=== PATIENT | male | born 1980 | race Caucasian/White ===

== ENCOUNTER 2016-10-23 20:19 | Inpatient (IN) | payer MEDICAID, OTHER ==
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
[2016-10-23] MEDS ORDERED: Ondansetron 4 MG/2 ML SDV IVPUSH ONE (20:50)
[2016-10-23] MEDS ORDERED: HYDROmorphone 0.5 MG/0.5 ML Syringe IVPUSH ONE (20:50)
[2016-10-23] MEDS ORDERED: Sodium Chloride 0.9% 1,000 ML IV ONE (21:16)
[2016-10-23] MEDS ORDERED: HYDROmorphone 0.5 MG/0.5 ML Syringe IVPUSH STA (22:29)
[2016-10-23] MEDS ORDERED: Metoprolol Tartrate 5 MG/5 ML SDV IVPUSH PRN (22:37)
[2016-10-23] MEDS ORDERED: Magnesium Sulfate/Water 2 GM in Premix Bag 1 BAG IV ONE (22:39)
[2016-10-23] MEDS ORDERED: Sodium Chloride 0.45% with KCl 1,000 ML IV SCH (23:00)
[2016-10-23] MEDS: HYDROmorphone 1 MG/ML Syringe IVPUSH PRN (23:16)
[2016-10-23] MEDS: cloNIDine 0.1 MG Tab PO SCH (23:30)
[2016-10-23] MEDS ORDERED: LORazepam 1 MG Tab PO ONE (23:38)
[2016-10-24] MEDS ORDERED: Nicotine 21 MG/24 Hr Patch TRDERM ONE (00:30)
[2016-10-24] MEDS: Sodium Chloride 0.45% with KCl 1,000 ML IV SCH ×2 (00:38→09:15)
[2016-10-24] MEDS: HYDROmorphone 1 MG/ML Syringe IVPUSH PRN ×6 (03:09→23:12)
[2016-10-24] MEDS ORDERED: Pneumococcal Polyvalent-23 Vaccine 0.5 ML SDV IM ONE (08:12)
[2016-10-24] MEDS: cloNIDine 0.1 MG Tab PO SCH ×2 (09:07→21:16)
[2016-10-24] MEDS: Enoxaparin 40 MG/0.4 ML Syringe SUBCUT SCH (09:52)
[2016-10-24] MEDS: D5 1/2 NS w/ 20 mEq/L KCl 1,000 ML IV SCH ×2 (09:58→18:01)
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
[2016-10-24] MEDS ORDERED: Magnesium Sulfate/Water 4 GM in Premix Bag 1 BAG IV ONE (10:30)
[2016-10-24] MEDS: Magnesium Sulfate/Water 2 GM in Premix Bag 1 BAG IV SCH ×2 (12:20→14:54)
[2016-10-24] MEDS: LORazepam 2 MG/ML MDV IVPUSH PRN ×2 (17:07→21:17)
[2016-10-24] MEDS ORDERED: Magnesium Sulfate/Water 2 GM in Premix Bag 1 BAG IV ONE (17:26)
[2016-10-24] MEDS ORDERED: Ondansetron 4 MG/2 ML SDV IVPUSH PRN (18:24)
[2016-10-24] MEDS: chlordiazePOXIDE 25 MG Cap PO SCH (21:17)
[2016-10-24] MEDS: Nicotine 21 MG/24 Hr Patch TRDERM SCH (21:30)
[2016-10-25] MEDS: HYDROmorphone 1 MG/ML Syringe IVPUSH PRN ×3 (03:12→18:54)
[2016-10-25] MEDS: chlordiazePOXIDE 25 MG Cap PO SCH ×2 (09:24→20:41)
[2016-10-25] MEDS: cloNIDine 0.1 MG Tab PO SCH ×2 (09:24→20:42)
[2016-10-25] MEDS: Enoxaparin 40 MG/0.4 ML Syringe SUBCUT SCH (09:25)
[2016-10-25] MEDS: Pantoprazole 40 MG Vial IVPUSH SCH ×2 (10:42→22:07)
[2016-10-25] MEDS: Ketorolac 30 MG/ML SDV IVPUSH SCH ×3 (10:42→22:02)
[2016-10-25] MEDS: Dextrose 5%-0.9% NaCl with KCl 1,000 ML IV SCH ×2 (10:43→22:11)
[2016-10-25] MEDS ORDERED: Morphine 4 MG/ML Syringe IVPUSH ONE (15:00)
--- NOTE | 2016-10-25 15:17 | PCM.PN ---
- General Info Date of Service: 10/25/16 Subjective Update: Patient complains of abdominal pain, is currently NPO. - Review of Systems General: Reports: Weakness HEENT: Reports: No Symptoms Pulmonary: Reports: No Symptoms Cardiovascular: Reports: No Symptoms Gastrointestinal: Reports: Abdominal Pain, Nausea Genitourinary: Reports: No Symptoms Musculoskeletal: Reports: No Symptoms Skin: Reports: No Symptoms Neurological: Reports: No Symptoms Psychiatric: Reports: No Symptoms - Patient Data Vitals - Most Recent: Last Vital Signs Temp 36.7 C 10/25/16 12:24 Pulse 51 L 10/25/16 12:24 Resp 16 10/25/16 12:24 BP 135/88 10/25/16 12:24 Pulse Ox 98 10/25/16 12:24 Weight - Most Recent: 68.356 kg I&O - Last 24 Hours: Intake & Output 10/25/16 10/25/16 10/25/16 06:59 14:59 22:59 Intake Total 1705 Balance 1705 Lab Results Last 24 Hours: Laboratory Results - last 24 hr 10/25/16 10/25/16 10/25/16 Range/Units 05:43 05:43 07:00 WBC 6.93 (4.23-9.07) K/mm3 RBC 4.08 L (4.63-6.08) M/mm3 Hgb 12.8 L (13.7-17.5) gm/L Hct 36.2 L (40.1-51.0) % MCV 88.7 (79.0-92.2) fl MCH 31.4 (25.7-32.2) pg MCHC 35.4 (32.2-35.5) g/dl RDW Std Deviation 39.4 (35.1-43.9) fL Plt Count 57 L (163-337) K/mm3 MPV 11.8 (9.4-12.3) fl Neut % (Auto) 81.0 H (34.0-67.9) % Lymph % (Auto) 9.2 L (21.8-53.1) % Cloud % (Auto) 9.2 (5.3-12.2) % Eos % (Auto) 0.6 L (0.8-7.0) Baso % (Auto) 0.0 L (0.1-1.2) % Neut # (Auto) 5.61 H (1.78-5.38) K/mm3 Lymph # (Auto) 0.64 L (1.32-3.57) K/mm3 Cloud # (Auto) 0.64 (0.30-0.82) K/mm3 Eos # (Auto) 0.04 (0.04-0.54) K/mm3 Baso # (Auto) 0.00 L (0.01-0.08) K/mm3 Manual Slide Review Abnormal smear Sodium 131 L (136-145) mEq/L Potassium 4.0 (3.5-5.1) mEq/L Chloride 95 L (98-107) mEq/L Carbon Dioxide 29 (21-32) mEq/L Anion Gap 11.0 (5-15) BUN 8 (7-18) mg/dL Creatinine 0.7 (0.7-1.3) mg/dL Est Cr Clr Drug Dosing 143.48 mL/min Estimated GFR (MDRD) > 60 (>60) mL/min BUN/Creatinine Ratio 11.4 L (14-18) Glucose 122 H (74-106) mg/dL POC Glucose 144 H (70-105) mg/dL Calcium 8.1 L (8.5-10.1) mg/dL Magnesium 1.7 L (1.8-2.4) mg/dl C-Reactive Protein 6.4 H* (<1.0) mg/dL Lipase 3527 H (73-393) U/L Ethyl Alcohol 0.00 (0.00) gm% Med Orders - Current: Current Medications Chlordiazepoxide HCl (Librium) 25 mg PO BID [facility] Last Admin: 10/25/16 09:24 Dose: 25 mg Clonidine HCl (Catapres) 0.1 mg PO BID [facility] Last Admin: 10/25/16 09:24 Dose: Not Given Enoxaparin Sodium (Lovenox) 40 mg SUBCUT DAILY [facility] Last Admin: 10/25/16 09:25 Dose: Not Given Hydromorphone HCl (Dilaudid) 2 mg IVPUSH Q4H PRN PRN Reason: Pain Potassium Chloride/Dextrose/Sod Cl (D5 Ns With 20 Meq Kcl) 1,000 mls @ 100 mls/ hr IV ASDIRECTED [facility] Last Admin: 10/25/16 10:43 Dose: 100 mls/hr Ketorolac Tromethamine (Toradol) 30 mg IVPUSH Q6H [facility] Stop: 10/26/16 16:31 Last Admin: 10/25/16 10:42 Dose: 30 mg Lorazepam (Ativan) 0 mg IVPUSH ASDIRECTED PRN; Protocol PRN Reason: Withdrawal Symptoms Last Admin: 10/24/16 21:17 Dose: 1 mg Metoprolol Tartrate (Lopressor) 5 mg IVPUSH Q6H PRN PRN Reason: Tachycardia Nicotine (Habitrol) 21 mg TRDERM 2100 [facility] Last Admin: 10/24/16 21:30 Dose: 21 mg Ondansetron HCl (Zofran) 4 mg IVPUSH Q4H PRN PRN Reason: Nausea/Vomiting Pantoprazole Sodium (Protonix Iv) 40 mg IVPUSH Q12H [facility] Last Admin: 10/25/16 10:42 Dose: 40 mg Discontinued Medications Hydromorphone HCl (Dilaudid) 0.5 mg IVPUSH ONETIME ONE Stop: 10/23/16 20:51 Last Admin: 10/23/16 21:26 Dose: 0.5 mg Hydromorphone HCl (Dilaudid) 0.5 mg IVPUSH STAT STA Stop: 10/23/16 22:30 Last Admin: 10/23/16 22:33 Dose: 0.5 mg Hydromorphone HCl (Dilaudid) 1 mg IVPUSH Q4H PRN PRN Reason: Pain Last Admin: 10/25/16 07:42 Dose: 1 mg Sodium Chloride (Normal Saline) 1,000 mls @ 999 mls/hr IV ONETIME ONE Stop: 10/23/16 22:16 Last Admin: 10/23/16 21:25 Dose: 999 mls/hr Magnesium Sulfate 2 gm/ Premix 50 mls @ 25 mls/hr IV ONETIME ONE Stop: 10/24/16 00:38 Last Admin: 10/23/16 23:20 Dose: 25 mls/hr Potassium Chloride/Sodium Chloride (1/2 Ns With 20 Meq Kcl) 1,000 mls @ 999 mls /hr IV ASDIRECTED [facility] Stop: 10/24/16 00:01 Last Admin: 10/23/16 23:20 Dose: 999 mls/hr Potassium Chloride/Sodium Chloride (1/2 Ns With 20 Meq Kcl) 1,000 mls @ 150 mls /hr IV ASDIRECTED [facility] Last Admin: 10/24/16 09:15 Dose: 150 mls/hr Potassium Chloride/Dextrose/Sod Cl (D5 1/2 Ns W/ 20 Meq/L Kcl) 1,000 mls @ 150 mls/hr IV ASDIRECTED [facility] Last Admin: 10/24/16 18:01 Dose: 150 mls/hr Magnesium Sulfate 2 gm/ Premix 50 mls @ 25 mls/hr IV Q2H [facility] Stop: 10/24/16 14:44 Last Admin: 10/24/16 14:54 Dose: 25 mls/hr Magnesium Sulfate 2 gm/ Premix 50 mls @ 25 mls/hr IV ONETIME ONE Stop: 10/24/16 19:25 Last Admin: 10/24/16 18:01 Dose: 25 mls/hr Lorazepam (Ativan) 1 mg PO ONETIME ONE Stop: 10/23/16 23:39 Last Admin: 10/24/16 00:13 Dose: 1 mg Morphine Sulfate (Morphine) 4 mg IVPUSH ONETIME ONE Stop: 10/25/16 15:01 Last Admin: 10/25/16 14:29 Dose: 4 mg Nicotine (Habitrol) 21 mg TRDERM ONETIME ONE Stop: 10/24/16 00:31 Last Admin: 10/24/16 00:37 Dose: 21 mg Ondansetron HCl (Zofran) 4 mg IVPUSH ONETIME ONE Stop: 10/23/16 20:51 Last Admin: 10/23/16 21:27 Dose: 4 mg Pneumococcal Polyvalent Vaccine (Pneumovax 23) 0.5 ml IM .ONCE ONE Stop: 10/24/16 08:13 - Exam Quality Assessment: Supplemental Oxygen, DVT Prophylaxis General: Alert, Oriented, Cooperative, No Acute Distress HEENT: Pupils Equal, Pupils Reactive, EOMI Neck: Supple, Trachea Midline, No JVD Lungs: Normal Respiratory Effort, Decreased Breath Sounds Cardiovascular: Regular Rate, Regular Rhythm GI/Abdominal Exam: Normal Bowel Sounds, Soft, No Organomegaly, No Distention, Tender (Male) Exam: Deferred Back Exam: Normal Inspection Extremities: Normal Inspection, Normal Capillary Refill Skin: Warm Neurological: No New Focal Deficit Psy/Mental Status: Alert, Anxious - Problem List & Annotations (1) Alcohol abuse SNOMED Code(s): 28911075 Code(s): F10.10 - ALCOHOL ABUSE, UNCOMPLICATED Status: Acute Current Visit: Yes (2) Acute alcoholic pancreatitis SNOMED Code(s): 637741945 Code(s): K85.2 - ALCOHOL INDUCED ACUTE PANCREATITIS * DO NOT USE * Status: Acute Current Visit: No Qualifiers: Acute pancreatitis complication: no infection or necrosis Qualified Code(s) : K85.20 - Alcohol induced acute pancreatitis without necrosis or infection (3) Alcohol intoxication SNOMED Code(s): 23128445 Code(s): F10.129 - ALCOHOL ABUSE WITH INTOXICATION, UNSPECIFIED Status: Acute Current Visit: No (4) Alcohol withdrawal SNOMED Code(s): 750960904 Code(s): F10.239 - ALCOHOL DEPENDENCE WITH WITHDRAWAL, UNSPECIFIED Status: Acute Current Visit: No Qualifiers: Complication of substance-induced condition: with unspecified complication Qualified Code(s): F10.239 - Alcohol dependence with withdrawal, unspecified (5) Hypokalemia SNOMED Code(s): 64321282 Code(s): E87.6 - HYPOKALEMIA Status: Acute Current Visit: No (6) Hypomagnesemia SNOMED Code(s): 527500501 Code(s): E83.42 - HYPOMAGNESEMIA Status: Acute Current Visit: No - Problem List Review Problem List Initiated/Reviewed/Updated: Yes - My Orders Last 24 Hours: My Active Orders 10/24/16 15:17 Communication Order [RC] DAILY 10/24/16 18:24 Ondansetron [Zofran] 4 mg IVPUSH Q4H PRN 10/24/16 21:00 Nicotine [Habitrol] 21 mg TRDERM 2100 chlordiazePOXIDE [Librium] 25 mg PO BID 10/25/16 07:00 Blood Glucose Check, Bedside [RC] ONETIME 10/25/16 09:45 Dextrose 5%-0.9% NaCl with KCl [D5 NS with 20 mEq KCl] 1,000 ml IV ASDIRECTED 10/25/16 10:11 HYDROmorphone [Dilaudid] 2 mg IVPUSH Q4H PRN 10/25/16 10:30 Ketorolac [Toradol] 30 mg IVPUSH Q6H 10/25/16 11:00 Pantoprazole [ProTONIX IV] 40 mg IVPUSH Q12H 10/26/16 05:00 BMP [BASIC METABOLIC PANEL,BMP] [CHEM] DAILY CBC WITH AUTO DIFF [HEME] DAILY CRP [C-REACTIVE PROTEIN] [CHEM] DAILY LIPASE [CHEM] DAILY MAGNESIUM [CHEM] DAILY 10/27/16 05:00 BMP [BASIC METABOLIC PANEL,BMP] [CHEM] DAILY CBC WITH AUTO DIFF [HEME] DAILY CRP [C-REACTIVE PROTEIN] [CHEM] DAILY LIPASE [CHEM] DAILY MAGNESIUM [CHEM] DAILY 10/28/16 05:00 BMP [BASIC METABOLIC PANEL,BMP] [CHEM] DAILY CBC WITH AUTO DIFF [HEME] DAILY CRP [C-REACTIVE PROTEIN] [CHEM] DAILY LIPASE [CHEM] DAILY MAGNESIUM [CHEM] DAILY - Plan Plan:: Impression: Alcoholic pancreatitis, acute on chronic Family history of alcoholism Polysubstance abuse Hypertension History of concussions LE fracture on prescription narcotics Plan: NPO IVF, hydrate with D5 1/2 NS +/- KCl CIWA Pain mgt Habitrol Psych consults-->0600, Thursday, 10/25...? Substance abuse consult, TBA Daily Labs DVT/GI prophylaxis CM/PT/OT
[2016-10-25] MEDS: LORazepam 2 MG/ML MDV IVPUSH PRN (19:04)
[2016-10-25] MEDS: Nicotine 21 MG/24 Hr Patch TRDERM SCH (22:00)
[2016-10-26] MEDS: HYDROmorphone 1 MG/ML Syringe IVPUSH PRN ×4 (00:36→23:30)
[2016-10-26] MEDS: LORazepam 2 MG/ML MDV IVPUSH PRN ×5 (02:44→12:33)
[2016-10-26] MEDS: Ketorolac 30 MG/ML SDV IVPUSH SCH ×3 (03:58→15:55)
[2016-10-26] MEDS ORDERED: HYDROmorphone 1 MG/ML Syringe IVPUSH ONE (04:47)
[2016-10-26] MEDS ORDERED: hydrALAZINE 20 MG/ML SDV IVPUSH ONE (05:47)
[2016-10-26] MEDS ORDERED: hydrALAZINE 20 MG/ML SDV IVPUSH PRN (06:33)
[2016-10-26] MEDS ORDERED: Magnesium Sulfate/Water 2 GM in Premix Bag 1 BAG IV ONE (06:36)
[2016-10-26] MEDS: chlordiazePOXIDE 25 MG Cap PO SCH ×3 (08:08→20:10)
--- NOTE | 2016-10-26 08:23 | PCM.PN ---
- General Info Date of Service: 10/12/16 Admission Dx/Problem (Free Text): Admission Diagnosis/Problem Admission Diagnosis/Problem Pancreatitis Subjective Update: Follow Up Functional Status: Reports: Tolerating Diet, Ambulating, Urinating. Denies: Pain Controlled - Review of Systems General: Denies: Fever, Weakness, Chills HEENT: Reports: No Symptoms Pulmonary: Denies: Shortness of Breath Cardiovascular: Denies: Chest Pain Gastrointestinal: Reports: Abdominal Pain. Denies: Nausea, Vomiting Genitourinary: Reports: No Symptoms Musculoskeletal: Reports: No Symptoms, Foot Pain Skin: Denies: Cyanosis, Jaundice, Mottled, Pallor, Rash Neurological: Reports: Gait Disturbance. Denies: Confusion, Difficulty Walking , Weakness Psychiatric: Reports: Agitation. Denies: Depression, Anxiety, Hallucinations, Suicidal Ideation Systems Review Comment:: No significant overnight or acute issues. He sedated. His HR spikes up in the 150s when he is up walking but comes back down to the 50s when he is resting or laying in bed. His CIWA score is 11 this am. His lipase is now 2125 from 3527. His Mg level is 1.3. - Patient Data Vitals - Most Recent: Last Vital Signs Temp 36.3 C 10/26/16 08:00 Pulse 54 L 10/26/16 08:00 Resp 13 10/26/16 08:00 BP 135/89 10/26/16 08:00 Pulse Ox 97 10/26/16 08:00 Weight - Most Recent: 73.119 kg I&O - Last 24 Hours: Intake & Output 10/25/16 10/26/16 10/26/16 22:59 06:59 14:59 Intake Total 1407 1107 Output Total 1200 500 Balance 207 607 Lab Results Last 24 Hours: Laboratory Results - last 24 hr 10/26/16 10/26/16 Range/Units 05:25 05:25 WBC 4.58 (4.23-9.07) K/mm3 RBC 3.97 L (4.63-6.08) M/mm3 Hgb 12.2 L (13.7-17.5) gm/L Hct 35.8 L (40.1-51.0) % MCV 90.2 (79.0-92.2) fl MCH 30.7 (25.7-32.2) pg MCHC 34.1 (32.2-35.5) g/dl RDW Std Deviation 40.9 (35.1-43.9) fL Plt Count 60 L (163-337) K/mm3 MPV 12.5 H (9.4-12.3) fl Neut % (Auto) 57.3 (34.0-67.9) % Lymph % (Auto) 25.5 (21.8-53.1) % Parke % (Auto) 14.4 H (5.3-12.2) % Eos % (Auto) 2.6 (0.8-7.0) Baso % (Auto) 0.2 (0.1-1.2) % Neut # (Auto) 2.62 (1.78-5.38) K/mm3 Lymph # (Auto) 1.17 L (1.32-3.57) K/mm3 Parke # (Auto) 0.66 (0.30-0.82) K/mm3 Eos # (Auto) 0.12 (0.04-0.54) K/mm3 Baso # (Auto) 0.01 (0.01-0.08) K/mm3 Manual Slide Review Abnormal smear Sodium 135 L (136-145) mEq/L Potassium 4.0 (3.5-5.1) mEq/L Chloride 100 (98-107) mEq/L Carbon Dioxide 28 (21-32) mEq/L Anion Gap 11.0 (5-15) BUN 7 (7-18) mg/dL Creatinine 0.7 (0.7-1.3) mg/dL Est Cr Clr Drug Dosing 153.53 mL/min Estimated GFR (MDRD) > 60 (>60) mL/min BUN/Creatinine Ratio 10.0 L (14-18) Glucose 82 (74-106) mg/dL Calcium 8.6 (8.5-10.1) mg/dL Magnesium 1.3 L (1.8-2.4) mg/dl C-Reactive Protein 4.6 H* (<1.0) mg/dL Lipase 2125 H (73-393) U/L Med Orders - Current: Current Medications Chlordiazepoxide HCl (Librium) 25 mg PO TID [facility] Last Admin: 10/26/16 08:08 Dose: 25 mg Clonidine HCl (Catapres) 0.1 mg PO BID [facility] Last Admin: 10/25/16 20:42 Dose: Not Given Enoxaparin Sodium (Lovenox) 40 mg SUBCUT DAILY [facility] Last Admin: 10/25/16 09:25 Dose: Not Given Hydralazine HCl (Apresoline) 20 mg IVPUSH Q6H PRN PRN Reason: Hypertension Hydromorphone HCl (Dilaudid) 2 mg IVPUSH Q4H PRN PRN Reason: Pain Last Admin: 10/26/16 00:36 Dose: 2 mg Potassium Chloride/Dextrose/Sod Cl (D5 Ns With 20 Meq Kcl) 1,000 mls @ 100 mls/ hr IV ASDIRECTED [facility] Last Admin: 10/25/16 22:11 Dose: 100 mls/hr Magnesium Sulfate 2 gm/ Premix 50 mls @ 25 mls/hr IV ONETIME ONE Stop: 10/26/16 08:35 Last Admin: 10/26/16 07:50 Dose: 25 mls/hr Ketorolac Tromethamine (Toradol) 30 mg IVPUSH Q6H [facility] Stop: 10/26/16 16:31 Last Admin: 10/26/16 03:58 Dose: 30 mg Lorazepam (Ativan) 0 mg IVPUSH ASDIRECTED PRN; Protocol PRN Reason: Withdrawal Symptoms Last Admin: 10/26/16 08:04 Dose: 2 mg Metoprolol Tartrate (Lopressor) 5 mg IVPUSH Q6H PRN PRN Reason: Tachycardia Nicotine (Habitrol) 21 mg TRDERM 2100 [facility] Last Admin: 10/25/16 22:00 Dose: 21 mg Ondansetron HCl (Zofran) 4 mg IVPUSH Q4H PRN PRN Reason: Nausea/Vomiting Pantoprazole Sodium (Protonix Iv) 40 mg IVPUSH Q12H [facility] Last Admin: 10/25/16 22:07 Dose: 40 mg Discontinued Medications Chlordiazepoxide HCl (Librium) 25 mg PO BID [facility] Last Admin: 10/25/16 20:41 Dose: 25 mg Hydralazine HCl (Apresoline) 20 mg IVPUSH ONETIME ONE Stop: 10/26/16 05:48 Last Admin: 10/26/16 05:55 Dose: 20 mg Hydromorphone HCl (Dilaudid) 0.5 mg IVPUSH ONETIME ONE Stop: 10/23/16 20:51 Last Admin: 10/23/16 21:26 Dose: 0.5 mg Hydromorphone HCl (Dilaudid) 0.5 mg IVPUSH STAT [facility] Stop: 10/23/16 22:30 Last Admin: 10/23/16 22:33 Dose: 0.5 mg Hydromorphone HCl (Dilaudid) 1 mg IVPUSH Q4H PRN PRN Reason: Pain Last Admin: 10/25/16 07:42 Dose: 1 mg Hydromorphone HCl (Dilaudid) 1 mg IVPUSH ONETIME ONE Stop: 10/26/16 04:48 Last Admin: 10/26/16 04:57 Dose: 1 mg Sodium Chloride (Normal Saline) 1,000 mls @ 999 mls/hr IV ONETIME ONE Stop: 10/23/16 22:16 Last Admin: 10/23/16 21:25 Dose: 999 mls/hr Magnesium Sulfate 2 gm/ Premix 50 mls @ 25 mls/hr IV ONETIME ONE Stop: 10/24/16 00:38 Last Admin: 10/23/16 23:20 Dose: 25 mls/hr Potassium Chloride/Sodium Chloride (1/2 Ns With 20 Meq Kcl) 1,000 mls @ 999 mls /hr IV ASDIRECTED [facility] Stop: 10/24/16 00:01 Last Admin: 10/23/16 23:20 Dose: 999 mls/hr Potassium Chloride/Sodium Chloride (1/2 Ns With 20 Meq Kcl) 1,000 mls @ 150 [facility]ls [facility] Last Admin: 10/24/16 09:15 Dose: 150 mls/hr Potassium Chloride/Dextrose/Sod Cl (D5 1/2 Ns W/ 20 Meq/L Kcl) 1,000 mls @ 150 mls/hr IV ASDIRECTED [facility] Last Admin: 10/24/16 18:01 Dose: 150 mls/hr Magnesium Sulfate 2 gm/ Premix 50 mls @ 25 mls/hr IV Q2H [facility] Stop: 10/24/16 14:44 Last Admin: 10/24/16 14:54 Dose: 25 mls/hr Magnesium Sulfate 2 gm/ Premix 50 mls @ 25 mls/hr IV ONETIME ONE Stop: 10/24/16 19:25 Last Admin: 10/24/16 18:01 Dose: 25 mls/hr Lorazepam (Ativan) 1 mg PO ONETIME ONE Stop: 10/23/16 23:39 Last Admin: 10/24/16 00:13 Dose: 1 mg Morphine Sulfate (Morphine) 4 mg IVPUSH ONETIME ONE Stop: 10/25/16 15:01 Last Admin: 10/25/16 14:29 Dose: 4 mg Nicotine (Habitrol) 21 mg TRDERM ONETIME ONE Stop: 10/24/16 00:31 Last Admin: 10/24/16 00:37 Dose: 21 mg Ondansetron HCl (Zofran) 4 mg IVPUSH ONETIME ONE Stop: 10/23/16 20:51 Last Admin: 10/23/16 21:27 Dose: 4 mg Pneumococcal Polyvalent Vaccine (Pneumovax 23) 0.5 ml IM .ONCE ONE Stop: 10/24/16 08:13 - Exam General: Lethargic HEENT: Pupils Equal, Pupils Reactive, Mucous Membr. Moist/[facility] Neck: Supple, Trachea Midline, No JVD, No Thyromegaly Lungs: Clear to Auscultation, Normal Respiratory Effort Cardiovascular: Regular Rate, Regular Rhythm GI/Abdominal Exam: Normal Bowel Sounds, Soft, No Organomegaly, No Distention, No Abnormal Bruit, No Mass, Tender (left upper quadrant). No: Guarding, Rigid, Rebound (Male) Exam: Deferred Back Exam: Normal Inspection, Decreased Range of Motion Extremities: Normal Inspection, Normal Range of Motion, Non-Tender, No Pedal Edema, Normal Capillary Refill Skin: Warm, Dry, Intact Neurological: No New Focal Deficit Psy/Mental Status: Alert, Normal Affect, Normal Mood - Problem List Review Problem List Initiated/Reviewed/Updated: Yes - Plan Plan:: Impression: Acute: Alcoholic Pancreatitis, Improved - Drinks heavy ETOH - Lipase is now 5 - Counseled on quitting ETOH Alcohol Withdrawal Symptoms - Zero VISHNU level on admission - Has family history of alcoholism - CIWA score is 11 this am - Continue CIWA protocol - SA has been consulted - Psych consult Chronic: Hypertension History of concussions ETOH Abuse Polysubstance abuse, no UDS done on this admission LE Fracture With Cast - Has foul smell - He follows Dr. Barroso - Spoke to Orthopedist, he recommends possibly seeing him in the clinic in am (if possible) if not to keep outpatient appointment with him as scheduled - Continue oral pain medications Plan: He is fairly stable Continue NPO except ice chips, sips of water and oral meds Change IVF rate to 250 from 70cc/hr Awaiting Psych consults Substance abuse consulted, need follow up when patient is more alert and awake Routine AM Labs DVT/GI prophylaxis CM/SW for d/c planning LOS likely > 96 hrs due to slow response to treatment
[2016-10-26] MEDS: cloNIDine 0.1 MG Tab PO SCH ×2 (08:43→20:13)
[2016-10-26] MEDS ORDERED: Dextrose 5%-0.45% NaCl 1,000 ML IV SCH (08:45)
[2016-10-26] MEDS: Enoxaparin 40 MG/0.4 ML Syringe SUBCUT SCH (08:53)
[2016-10-26] MEDS ORDERED: LORazepam 2 MG/ML MDV IVPUSH PRN (09:04)
[2016-10-26] MEDS ORDERED: Metoprolol Tartrate 5 MG/5 ML SDV IVPUSH PRN (09:04)
[2016-10-26] MEDS: Dextrose 5%-0.9% NaCl 1,000 ML IV SCH ×3 (09:44→20:12)
[2016-10-26] MEDS: Pantoprazole 40 MG Vial IVPUSH SCH ×2 (10:12→23:30)
[2016-10-26] MEDS: Acetaminophen/HYDROcodone 325-5 MG Tab PO PRN ×3 (10:56→21:07)
--- NOTE | 2016-10-26 12:01 | CONS ---
CONSULTING PHYSICIAN: Fabrizio Souza LAC DATE OF CONSULTATION: 10/26/2016 TIME: 11:31 a.m. The patient is a 36-year-old male admitted to [facility] on 10/23/2016 and alcohol and drug consultation was requested by his medical treatment team. An evaluation was attempted on 10/25/2016. The patient is known to this test evaluator as I committed him to the [facility] once in the past. We spoke briefly about his situation and the patient was asked what we could do to help him. The patient reported that he was not interested in substance abuse treatment and that he just wanted medical treatment for his pancreatitis. The patient stated "treatment never helped me in the past. I went to the [facility] and [facility], and it didn't help me." The patient also refused to sign a consent to speak with his mother. During our conversation, the patient appeared to be in some distress with his pancreatitis and was displaying signs of onset withdrawal. The patient and I decided that an evaluation could be attempted at a later date after he stabilized. Dr. Moyer was consulted regarding the outcome of this attempted consultation. Further assessment will be provided when the patient has stabilized. ODAL /[id number]
[2016-10-26] MEDS: hydrALAZINE 20 MG/ML SDV IVPUSH PRN (16:23)
[2016-10-26] MEDS ORDERED: Bumetanide 1 MG/4 ML MDV IVPUSH ONE (16:36)
[2016-10-26] MEDS: oxyCODONE ER 10 MG TAB.ER PO SCH (20:11)
[2016-10-26] MEDS: Nicotine 21 MG/24 Hr Patch TRDERM SCH (20:16)
[2016-10-27] MEDS: Dextrose 5%-0.9% NaCl 1,000 ML IV SCH ×5 (01:16→21:20)
[2016-10-27] MEDS: Acetaminophen/HYDROcodone 325-5 MG Tab PO PRN (02:11)
[2016-10-27] MEDS ORDERED: Docusate Sodium 100 MG Cap PO PRN (02:15)
[2016-10-27] MEDS: hydrALAZINE 20 MG/ML SDV IVPUSH PRN (02:40)
[2016-10-27] MEDS: LORazepam 2 MG/ML MDV IVPUSH PRN (05:24)
[2016-10-27] MEDS: HYDROmorphone 1 MG/ML Syringe IVPUSH PRN ×3 (06:26→21:11)
[2016-10-27] MEDS ORDERED: Potassium Chloride 20 MEQ Tab.ER PO ONE (08:00)
[2016-10-27] MEDS: Magnesium Sulfate/Water 2 GM in Premix Bag 1 BAG IV SCH ×3 (08:14→12:29)
[2016-10-27] MEDS: QUEtiapine 25 MG Tab PO SCH ×2 (08:16→20:29)
[2016-10-27] MEDS: oxyCODONE ER 10 MG TAB.ER PO SCH ×2 (08:16→20:28)
[2016-10-27] MEDS: chlordiazePOXIDE 25 MG Cap PO SCH ×3 (08:16→20:28)
[2016-10-27] MEDS: Topiramate 25 MG Tab PO SCH ×2 (08:16→20:28)
[2016-10-27] MEDS: Folic Acid 1 MG Tab PO SCH (08:16)
[2016-10-27] MEDS: FLUoxetine 20 MG Cap PO SCH (08:16)
[2016-10-27] MEDS: cloNIDine 0.1 MG Tab PO SCH ×2 (08:17→20:33)
[2016-10-27] MEDS ORDERED: Pantoprazole 40 MG Vial IVPUSH SCH (09:00)
--- NOTE | 2016-10-27 13:11 | PCM.PN ---
- General Info Date of Service: 10/27/16 Admission Dx/Problem (Free Text): Admission Diagnosis/Problem Admission Diagnosis/Problem Pancreatitis Patient doing better; continues to have upper abdominal pain, no nausea or vomiting. Has been NPO. Dr. Ayala spoke with Dr. Musa yesterday re: right foot fx. Plans will be for Ortho nurse to remove cast today in patient room. Orders placed for CAM boot , then patient may be WBAT in boot at all times except while bathing. Psych and SA consults pending. Functional Status: Reports: Pain Controlled, Ambulating, Urinating. Denies: Tolerating Diet (NPO), New Symptoms - Review of Systems General: Reports: Weakness. Denies: Fever HEENT: Reports: No Symptoms Pulmonary: Reports: No Symptoms Cardiovascular: Reports: No Symptoms Gastrointestinal: Reports: Abdominal Pain, Other (no appetite). Denies: Diarrhea, Nausea, Vomiting Genitourinary: Reports: No Symptoms Neurological: Reports: No Symptoms Psychiatric: Reports: Cravings (nicotine). Denies: Agitation - Patient Data Vitals - Most Recent: Last Vital Signs Temp 98.8 F 10/27/16 09:00 Pulse 63 10/27/16 09:00 Resp 16 10/27/16 09:00 BP 137/95 H 10/27/16 09:00 Pulse Ox 96 10/27/16 09:00 Weight - Most Recent: 161 lb 8 oz I&O - Last 24 Hours: Intake & Output 10/26/16 10/27/16 10/27/16 22:59 06:59 14:59 Intake Total 2250 2419 Output Total 1300 1275 825 Balance 950 1144 -825 Lab Results Last 24 Hours: Laboratory Results - last 24 hr 10/26/16 10/27/16 10/27/16 Range/Units 16:53 05:28 05:30 WBC 4.90 (4.23-9.07) K/mm3 RBC 4.37 L (4.63-6.08) M/mm3 Hgb 13.6 L (13.7-17.5) gm/L Hct 38.7 L (40.1-51.0) % MCV 88.6 (79.0-92.2) fl MCH 31.1 (25.7-32.2) pg MCHC 35.1 (32.2-35.5) g/dl RDW Std Deviation 40.6 (35.1-43.9) fL Plt Count 93 L (163-337) K/mm3 MPV 12.0 (9.4-12.3) fl Neut % (Auto) 70.2 H (34.0-67.9) % Lymph % (Auto) 15.7 L (21.8-53.1) % [place] % (Auto) 13.3 H (5.3-12.2) % Eos % (Auto) 0.8 (0.8-7.0) Baso % (Auto) 0.0 L (0.1-1.2) % Neut # (Auto) 3.44 (1.78-5.38) K/mm3 Lymph # (Auto) 0.77 L (1.32-3.57) K/mm3 [place] # (Auto) 0.65 (0.30-0.82) K/mm3 Eos # (Auto) 0.04 (0.04-0.54) K/mm3 Baso # (Auto) 0.00 L (0.01-0.08) K/mm3 Manual Slide Review Abnormal smear Sodium (136-145) mEq/L Potassium (3.5-5.1) mEq/L Chloride (98-107) mEq/L Carbon Dioxide (21-32) mEq/L Anion Gap (5-15) BUN (7-18) mg/dL Creatinine (0.7-1.3) mg/dL Est Cr Clr Drug Dosing mL/min Estimated GFR (MDRD) (>60) mL/min BUN/Creatinine Ratio (14-18) Glucose (74-106) mg/dL POC Glucose 88 115 H (70-105) mg/dL Calcium (8.5-10.1) mg/dL Magnesium (1.8-2.4) mg/dl C-Reactive Protein (<1.0) mg/dL Lipase (73-393) U/L 10/27/16 Range/Units 05:30 WBC (4.23-9.07) K/mm3 RBC (4.63-6.08) M/mm3 Hgb (13.7-17.5) gm/L Hct (40.1-51.0) % MCV (79.0-92.2) fl MCH (25.7-32.2) pg MCHC (32.2-35.5) g/dl RDW Std Deviation (35.1-43.9) fL Plt Count (163-337) K/mm3 MPV (9.4-12.3) fl Neut % (Auto) (34.0-67.9) % Lymph % (Auto) (21.8-53.1) % [place] % (Auto) (5.3-12.2) % Eos % (Auto) (0.8-7.0) Baso % (Auto) (0.1-1.2) % Neut # (Auto) (1.78-5.38) K/mm3 Lymph # (Auto) (1.32-3.57) K/mm3 [place] # (Auto) (0.30-0.82) K/mm3 Eos # (Auto) (0.04-0.54) K/mm3 Baso # (Auto) (0.01-0.08) K/mm3 Manual Slide Review Sodium 136 (136-145) mEq/L Potassium 3.3 L (3.5-5.1) mEq/L Chloride 101 (98-107) mEq/L Carbon Dioxide 24 (21-32) mEq/L Anion Gap 14.3 (5-15) BUN 3 L (7-18) mg/dL Creatinine 0.7 (0.7-1.3) mg/dL Est Cr Clr Drug Dosing 153.53 mL/min Estimated GFR (MDRD) > 60 (>60) mL/min BUN/Creatinine Ratio 4.3 L (14-18) Glucose 119 H (74-106) mg/dL POC Glucose (70-105) mg/dL Calcium 8.9 (8.5-10.1) mg/dL Magnesium 1.1 L (1.8-2.4) mg/dl C-Reactive Protein 2.9 H* (<1.0) mg/dL Lipase 2242 H (73-393) U/L Med Orders - Current: Current Medications Hydrocodone Bitart/Acetaminophen ([place] 325-5 Mg) 1 tab PO Q4H PRN PRN Reason: Pain/Fever Last Admin: 10/27/16 02:11 Dose: 1 tab Chlordiazepoxide HCl (Librium) 25 mg PO TID BART Last Admin: 10/27/16 08:16 Dose: 25 mg Clonidine HCl (Catapres) 0.1 mg PO BID COUNTS INCLUDE 234 BEDS AT THE [facility] Last Admin: 10/27/16 08:17 Dose: 0.1 mg Docusate Sodium (Colace) 100 mg PO DAILY PRN PRN Reason: Constipation Last Admin: 10/27/16 02:40 Dose: 100 mg Fluoxetine HCl (Prozac) 20 mg PO DAILY COUNTS INCLUDE 234 BEDS AT THE [facility] Last Admin: 10/27/16 08:16 Dose: 20 mg Folic Acid (Folic Acid) 1 mg PO DAILY COUNTS INCLUDE 234 BEDS AT THE [facility] Last Admin: 10/27/16 08:16 Dose: 1 mg Hydralazine HCl (Apresoline) 20 mg IVPUSH Q4H PRN PRN Reason: Hypertension Last Admin: 10/27/16 02:40 Dose: 20 mg Hydromorphone HCl (Dilaudid) 1 mg IVPUSH Q6H PRN PRN Reason: Pain Last Admin: 10/27/16 06:26 Dose: 1 mg Dextrose/Sodium Chloride (Dextrose 5%-Normal Saline) 1,000 mls @ 200 mls/hr IV ASDIRECTED COUNTS INCLUDE 234 BEDS AT THE [facility] Last Admin: 10/27/16 11:26 Dose: 200 mls/hr Magnesium Sulfate 2 gm/ Premix 50 mls @ 25 mls/hr IV Q2H COUNTS INCLUDE 234 BEDS AT THE [facility] Stop: 10/27/16 13:44 Last Admin: 10/27/16 12:29 Dose: 25 mls/hr Lorazepam (Ativan) 0 mg IVPUSH ASDIRECTED PRN; Protocol PRN Reason: Withdrawal Symptoms Last Admin: 10/27/16 05:24 Dose: 1 mg Lorazepam (Ativan) 2 mg IVPUSH Q4H PRN PRN Reason: Seizures Magnesium Sulfate (Pharmacy To Dose - Magnesium Replacement) 0 dose .XX ASDIRECTED PRN PRN Reason: RX TO WATCH MAG LEVELS Metoprolol Tartrate (Lopressor) 5 mg IVPUSH Q4H PRN PRN Reason: Tachycardia Nicotine (Habitrol) 21 mg TRDERM 2100 COUNTS INCLUDE 234 BEDS AT THE [facility] Last Admin: 10/26/16 20:16 Dose: 21 mg Ondansetron HCl (Zofran) 4 mg IVPUSH Q4H PRN PRN Reason: Nausea/Vomiting Last Admin: 10/27/16 04:25 Dose: 4 mg Oxycodone HCl (Oxycontin) 10 mg PO Q12HR COUNTS INCLUDE 234 BEDS AT THE [facility] Last Admin: 10/27/16 08:16 Dose: 10 mg Pantoprazole Sodium (Protonix) 40 mg PO DAILY@0700 COUNTS INCLUDE 234 BEDS AT THE [facility] Potassium Chloride (Pharmacy To Dose - Potassium Replacement) 0 dose .XX ASDIRECTED PRN PRN Reason: RX TO WATCH K LEVELS Quetiapine Fumarate (Seroquel) 50 mg PO BEDTIME COUNTS INCLUDE 234 BEDS AT THE [facility] Last Admin: 10/27/16 08:16 Dose: 50 mg Senna/Docusate Sodium (Senna Plus) 1 tab PO DAILY PRN PRN Reason: Constipation Last Admin: 10/27/16 02:40 Dose: 1 tab Thiamine HCl (Vitamin B-1) 100 mg PO BEDTIME COUNTS INCLUDE 234 BEDS AT THE [facility] Topiramate (Topamax) 25 mg PO BID COUNTS INCLUDE 234 BEDS AT THE [facility] Stop: 11/02/16 21:01 Last Admin: 10/27/16 08:16 Dose: 25 mg Topiramate (Topamax) 50 mg PO BID COUNTS INCLUDE 234 BEDS AT THE [facility] Discontinued Medications Bumetanide (Bumex) 0.5 mg IVPUSH ONETIME ONE Stop: 10/26/16 16:37 Last Admin: 10/26/16 16:42 Dose: 0.5 mg Chlordiazepoxide HCl (Librium) 25 mg PO BID COUNTS INCLUDE 234 BEDS AT THE [facility] Last Admin: 10/25/16 20:41 Dose: 25 mg Enoxaparin Sodium (Lovenox) 40 mg SUBCUT DAILY COUNTS INCLUDE 234 BEDS AT THE [facility] Last Admin: 10/26/16 08:53 Dose: 40 mg Hydralazine HCl (Apresoline) 20 mg IVPUSH ONETIME ONE Stop: 10/26/16 05:48 Last Admin: 10/26/16 05:55 Dose: 20 mg Hydralazine HCl (Apresoline) 20 mg IVPUSH Q6H PRN PRN Reason: Hypertension Hydromorphone HCl (Dilaudid) 0.5 mg IVPUSH ONETIME ONE Stop: 10/23/16 20:51 Last Admin: 10/23/16 21:26 Dose: 0.5 mg Hydromorphone HCl (Dilaudid) 0.5 mg IVPUSH STAT STA Stop: 10/23/16 22:30 Last Admin: 10/23/16 22:33 Dose: 0.5 mg Hydromorphone HCl (Dilaudid) 1 mg IVPUSH Q4H PRN PRN Reason: Pain Last Admin: 10/25/16 07:42 Dose: 1 mg Hydromorphone HCl (Dilaudid) 2 mg IVPUSH Q4H PRN PRN Reason: Pain Last Admin: 10/26/16 00:36 Dose: 2 mg Hydromorphone HCl (Dilaudid) 1 mg IVPUSH ONETIME ONE Stop: 10/26/16 04:48 Last Admin: 10/26/16 04:57 Dose: 1 mg Sodium Chloride (Normal Saline) 1,000 mls @ 999 mls/hr IV ONETIME ONE Stop: 10/23/16 22:16 Last Admin: 10/23/16 21:25 Dose: 999 mls/hr Magnesium Sulfate 2 gm/ Premix 50 mls @ 25 mls/hr IV ONETIME ONE Stop: 10/24/16 00:38 Last Admin: 10/23/16 23:20 Dose: 25 mls/hr Potassium Chloride/Sodium Chloride (1/2 Ns With 20 Meq Kcl) 1,000 mls @ 999 mls /hr [facility] Stop: 10/24/16 00:01 Last Admin: 10/23/16 23:20 Dose: 999 mls/hr Potassium Chloride/Sodium Chloride (1/2 Ns With 20 Meq Kcl) 1,000 mls @ 150 mls /hr [facility] Last Admin: 10/24/16 09:15 Dose: 150 mls/hr Potassium Chloride/Dextrose/Sod Cl (D5 1/2 Ns W/ 20 Meq/L Kcl) 1,000 mls @ 150 mls/hr [facility] Last Admin: 10/24/16 18:01 Dose: 150 mls/hr Magnesium Sulfate 2 gm/ Premix 50 mls @ 25 mls/hr IV Q2H COUNTS INCLUDE 234 BEDS AT THE [facility] Stop: 10/24/16 14:44 Last Admin: 10/24/16 14:54 Dose: 25 mls/hr Magnesium Sulfate 2 gm/ Premix 50 mls @ 25 mls/hr IV ONETIME ONE Stop: 10/24/16 19:25 Last Admin: 10/24/16 18:01 Dose: 25 mls/hr Potassium Chloride/Dextrose/Sod Cl (D5 Ns With 20 Meq Kcl) 1,000 mls @ 100 mls/ hr [facility] Last Admin: 10/25/16 22:11 Dose: 100 mls/hr Magnesium Sulfate 2 gm/ Premix 50 mls @ 25 mls/hr IV ONETIME ONE Stop: 10/26/16 08:35 Last Admin: 10/26/16 07:50 Dose: 25 mls/hr Dextrose/Sodium Chloride (Dextrose 5%-1/2 Ns) 1,000 mls @ 70 mls/hr IV ASDIRECTED COUNTS INCLUDE 234 BEDS AT THE [facility] Last Admin: 10/26/16 08:54 Dose: 70 mls/hr Ketorolac Tromethamine (Toradol) 30 mg IVPUSH Q6H COUNTS INCLUDE 234 BEDS AT THE [facility] Stop: 10/26/16 16:31 Last Admin: 10/26/16 15:55 Dose: 30 mg Lorazepam (Ativan) 1 mg PO ONETIME ONE Stop: 10/23/16 23:39 Last Admin: 10/24/16 00:13 Dose: 1 mg Metoprolol Tartrate (Lopressor) 5 mg IVPUSH Q6H PRN PRN Reason: Tachycardia Morphine Sulfate (Morphine) 4 mg IVPUSH ONETIME ONE Stop: 10/25/16 15:01 Last Admin: 10/25/16 14:29 Dose: 4 mg Nicotine (Habitrol) 21 mg TRDERM ONETIME ONE Stop: 10/24/16 00:31 Last Admin: 10/24/16 00:37 Dose: 21 mg Ondansetron HCl (Zofran) 4 mg IVPUSH ONETIME ONE Stop: 10/23/16 20:51 Last Admin: 10/23/16 21:27 Dose: 4 mg Pantoprazole Sodium (Protonix Iv) 40 mg IVPUSH Q12H COUNTS INCLUDE 234 BEDS AT THE [facility] Last Admin: 10/26/16 23:30 Dose: 40 mg Pantoprazole Sodium (Protonix Iv) 40 mg IVPUSH Q12H COUNTS INCLUDE 234 BEDS AT THE [facility] Last Admin: 10/27/16 08:19 Dose: 40 mg Pneumococcal Polyvalent Vaccine (Pneumovax 23) 0.5 ml IM .ONCE ONE Stop: 10/24/16 08:13 Potassium Chloride (Klor-Con M20) 40 meq PO ONETIME ONE Stop: 10/27/16 08:01 Last Admin: 10/27/16 08:18 Dose: 40 meq - Exam Quality Assessment: DVT Prophylaxis General: Alert, Oriented, No Acute Distress HEENT: Pupils Equal, Pupils Reactive, Mucous Membr. Moist/Fellows Neck: Supple Lungs: Clear to Auscultation, Normal Respiratory Effort Cardiovascular: Regular Rate, Regular Rhythm GI/Abdominal Exam: Soft, Tender (upper abdomen worse to epigastrium ), Abnormal Bowel Sounds (decreased). No: Guarding, Rigid, Rebound (Male) Exam: Deferred Extremities: Other (cast removed per [place], skin is intact, macerated circular area to heel approximately 2cm in diameter, nontender with palpation, intact. No open skin or wounds noted. DP/PT pulses 2+ and = bilat. CMS + bilat) Neurological: No New Focal Deficit Psy/Mental Status: Alert, Normal Mood, Anxious (pressured speech) - Problem List & Annotations (1) Acute alcoholic pancreatitis SNOMED Code(s): 893789385 Code(s): K85.2 - ALCOHOL INDUCED ACUTE PANCREATITIS * DO NOT USE * Status: Acute Priority: High Current Visit: Yes Qualifiers: Acute pancreatitis complication: no infection or necrosis Qualified Code(s) : K85.20 - Alcohol induced acute pancreatitis without necrosis or infection (2) Hypomagnesemia SNOMED Code(s): 341489504 Code(s): E83.42 - HYPOMAGNESEMIA Status: Acute Priority: High Current Visit: Yes (3) Hypokalemia SNOMED Code(s): 38816288 Code(s): E87.6 - HYPOKALEMIA Status: Acute Priority: High Current Visit : Yes (4) Alcohol abuse SNOMED Code(s): 75324947 Code(s): F10.10 - ALCOHOL ABUSE, UNCOMPLICATED Status: Chronic Priority: High Current Visit: Yes (5) Alcohol intoxication SNOMED Code(s): 97450418 Code(s): F10.129 - ALCOHOL ABUSE WITH INTOXICATION, UNSPECIFIED Status: Resolved Priority: High Current Visit: Yes (6) Injury of lower leg SNOMED Code(s): 892512388 Code(s): S89.90XA - UNSPECIFIED INJURY OF UNSPECIFIED LOWER LEG, INIT ENCNTR Status: Acute Priority: Medium Current Visit: No Onset Date: 10/12/13 Annotation/Comment:: blunt trauma to left leg and ankle bone - Problem List Review Problem List Initiated/Reviewed/Updated: Yes - My Orders Last 24 Hours: My Active Orders 10/27/16 11:00 Consult to Physical Therapy [PT Evaluation and Treatment] [CONS] Routine 10/27/16 13:05 Communication Order [RC] ROUTINE - Plan Plan:: Impression: Acute: Alcoholic Pancreatitis, Improved - Drinks heavy ETOH - Lipase is slowly trending down - Counseled on quitting ETOH; SA consult - NPO - IVF Alcohol Withdrawal Symptoms - Zero VISHNU level on admission - Has family history of alcoholism - CIWA score is improved, 8,7 and 3 - Continue CIWA protocol with meds as ordered - SA has been consulted - Psych consult Chronic: Hypertension History of concussions ETOH Abuse Polysubstance abuse, no UDS done on this admission LE Fracture With Cast - Has foul smell - He follows Dr. Barroso, spoke with him this morning via phone. Ortho nurse Geovany will come to hospital to remove cast today with recommendations for CAM boot following cast removal and WBAT in CAM boot at all times except for bathing. Plan: He is fairly stable Continue NPO except ice chips, sips of water and oral meds Change IVF rate to 250 from 70cc/hr Awaiting Psych consults Substance abuse consulted, need follow up when patient is more alert and awake Routine AM Labs DVT/GI prophylaxis CM/SW for d/c planning Patient is Full Code status LOS likely > 96 hrs due to slow response to treatment
--- NOTE | 2016-10-27 13:29 | CONS ---
CONSULTING PHYSICIAN: Grady Upton MD DATE OF CONSULTATION: 10/27/2016 IDENTIFICATION: The patient is a 36-year-old male who is admitted to the inpatient MICU at [facility] in [place], [place] on 10/23/2016. He is seen for psychiatric evaluation. CHIEF COMPLAINT: "Pancreatitis." HISTORY OF PRESENT ILLNESS: The patient is a 36-year-old male, who is admitted for severe alcohol pancreatitis. He is admitted with a BAL of 0.26. He states "my friend brought me in, but I came in of my own accord." The patient states that he has been drinking about a half gallon a day of hard liquor. He states "I just can't do it anymore." He endorses depressed mood and increased anxiety, noting "a lot of anxiety." With that said, he states his depression is in worse form at this point in time, "but the anxiety is not that far behind." He reports he feels hopeless, he feels guilty, and he has increase isolative behavior. He has racing thoughts and ruminations, some mood swings but he does not feel that they are too bad and poor sleep patterns. He states "when I get depressed, I just turn to the bottle." He is also dealing with a right foot fracture after breaking his right lower leg in September. He states that he has not been on psychiatric medications in the past, would be open to trying something if this would help improve his mood. He is also open to talking with people from as he has been to in the past and he felt that has helped him. He denies that he is suicidal or homicidal at this point in time, but he does note that he has had an episode or two of some auditory hallucinations since he has been in the hospital. MEDICATIONS: At time of presentation, 1. Ativan per CIWA protocol. 2. Dilaudid p.r.n. Home medications include hydrocodone and ASA. ALLERGIES: No known drug allergies. PAST MEDICAL HISTORY: 1. Status post right lower leg fracture in September of 2016. The patient is currently in a cast. 2. This is the patient's 3rd episode of pancreatitis per his report. REVIEW OF SYSTEMS: Aside from musculoskeletal and GI all other major organ systems are negative at this point in time for acute difficulties or complications. FAMILY PSYCHIATRIC AND CD HISTORY: The patient reports father has a history of alcoholism and brother has a history of alcoholism. PAST PSYCHIATRIC AND CD HISTORY: The patient denies any previous psychiatric hospitalizations. He reports two chemical dependency treatments in the past. Last one was about 6 months ago. Longest sobriety since his drinking has been an issue is about 1-1/2 months. He has gone to in the past. Denies any previous suicide attempts, self- injurious behaviors, or eating disorder history. Denies any abuse issues while being raised. Denies any past psychiatric medication trials. SOCIAL HISTORY: The patient was born and raised in [place], [place]. He is the second of 3 siblings, has 2 brothers. The patient has never been , not involved in any current relationships, has no kids. He works in the [employer] when he is healthy. He is currently living with his parents in [place], [place]. Denies any prior service or current legal difficulties. He was raised [facility]. He enjoys automotive interests such as motorcycles and [employer]. He also enjoys fishing. MENTAL STATUS EXAM: The patient is a 36-year-old soft-spoken white male, in no apparent distress. Speech is of regular rate and rhythm. The patient is cognitively oriented. Psychomotor activities within normal limits. He is cognitively oriented x3. Psychomotor activity is within normal limits. There is no abnormal motor movements or tics observed. Gait and station are not observed. This patient is sitting on the side of the bed for his inpatient consult. Mood is depressed. Affect is consistent with stated mood, cooperative but restricted overall. There is no behavioral or stated evidence of acute suicidal or homicidal ideation. Thought content is significant for some intermittent noncommand type auditory hallucinations. Thought processes are significant for racing thoughts and ruminations. There is no acute manic symptoms or loose associations evident. Judgment and insight appear unimpaired at this point in time. Motivation for help appears good. VITALS: 136/88, 47, 16, 98.7 degrees. IMPRESSION: [place] I: 1. Alcohol dependence, F10.20. 2. Major depressive disorder, severe, F32.3. 3. Anxiety disorder, not otherwise specified, F41.9. 4. Psychosis, not otherwise specified, F29. 5. Rule out bipolar affective disease, mixed type. [place] II: None. [place] III: 1. Status post right lower leg fracture in September of 2016. 2. Third episode of pancreatitis. [place] IV: Severe. [place] V: 50. PLAN: 1. Begin trial of Seroquel at 50 mg at bedtime for racing thoughts, ruminations, psychotic symptoms, anxiety reduction, and sleep initiation and maintenance. 2. Begin Topamax 25 mg b.i.d. x7 days increasing to 50 mg b.i.d. thereafter for seizure prophylaxis, anxiety reduction, and mood stability. 3. Begin trial of Prozac 20 mg q.a.m. for symptoms of depression. 4. Folic acid supplementation. 5. Thiamine supplementation. 6. Sobriety. 7. AA rep. 8. Pastoral guidance. 9. Chemical dependency consult. 10.Recommend transferring the patient to inpatient chemical dependency treatment. Once medically stable to help the patient with his alcohol dependence. 11.We will continue follow up with the patient on a regular basis as needed while he remains on the inpatient MICU. 12.We will follow up with the patient sooner if any complications in the interim. 13.Crisis plan is in place. MMODAL /[id number]
[2016-10-27] MEDS: Thiamine 100 MG Tab PO SCH (20:28)
[2016-10-27] MEDS: Nicotine 21 MG/24 Hr Patch TRDERM SCH (21:11)
[2016-10-28] MEDS: Acetaminophen/HYDROcodone 325-5 MG Tab PO PRN (01:25)
[2016-10-28] MEDS: Dextrose 5%-0.9% NaCl 1,000 ML IV SCH ×2 (02:53→07:55)
[2016-10-28] MEDS ORDERED: Pantoprazole 40 MG Tab.CR PO SCH (07:00)
[2016-10-28] MEDS: HYDROmorphone 1 MG/ML Syringe IVPUSH PRN (07:26)
[2016-10-28] MEDS: oxyCODONE ER 10 MG TAB.ER PO SCH (08:34)
[2016-10-28] MEDS: Folic Acid 1 MG Tab PO SCH (08:34)
[2016-10-28] MEDS: cloNIDine 0.1 MG Tab PO SCH ×2 (08:35→20:26)
[2016-10-28] MEDS: chlordiazePOXIDE 25 MG Cap PO SCH (08:37)
[2016-10-28] MEDS: FLUoxetine 20 MG Cap PO SCH (08:37)
[2016-10-28] MEDS: Topiramate 25 MG Tab PO SCH ×2 (08:37→20:26)
[2016-10-28] MEDS ORDERED: Magnesium Sulfate/Water 2 GM in Premix Bag 1 BAG IV ONE (09:30)
[2016-10-28] MEDS: Potassium Chloride 20 MEQ Tab.ER PO SCH ×2 (09:55→13:11)
[2016-10-28] MEDS: Lisinopril 10 MG Tab PO SCH (13:11)
[2016-10-28] MEDS: Ibuprofen 800 MG Tab PO SCH ×2 (14:07→22:07)
--- NOTE | 2016-10-28 14:16 | PCM.PN ---
- General Info Date of Service: 10/28/16 Admission Dx/Problem (Free Text): Admission Diagnosis/Problem Admission Diagnosis/Problem Pancreatitis Patient doing better; continues to have upper abdominal pain, no nausea or vomiting. Continues to be NPO due to elevated lipase levels. Has been transferred out of ICU. Functional Status: Reports: Ambulating, Urinating. Denies: Tolerating Diet, New Symptoms - Review of Systems General: Reports: No Symptoms. Denies: Fever, Fatigue, Malaise, Chills HEENT: Reports: No Symptoms Pulmonary: Reports: No Symptoms. Denies: Shortness of Breath, Cough Cardiovascular: Reports: No Symptoms. Denies: Chest Pain, Palpitations, Dyspnea on Exertion Gastrointestinal: Reports: Abdominal Pain, Nausea (occasionally when pain is at its worst). Denies: Constipation, Diarrhea, Vomiting Genitourinary: Reports: No Symptoms Musculoskeletal: Reports: Leg Pain (minimal to no pain to his right foot s/p cast removal yesterday) Skin: Reports: No Symptoms Neurological: Reports: No Symptoms Psychiatric: Reports: Anxiety, Cravings (tobacco) - Patient Data Vitals - Most Recent: Last Vital Signs Temp 98.2 F 10/28/16 09:00 Pulse 75 10/28/16 09:00 Resp 16 10/28/16 09:00 BP 156/97 H 10/28/16 13:11 Pulse Ox 98 10/28/16 09:00 Weight - Most Recent: 155 lb I&O - Last 24 Hours: Intake & Output 10/27/16 10/28/16 10/28/16 22:59 06:59 14:59 Intake Total 2526 2204 Output Total 2500 1600 900 Balance 26 604 -900 Lab Results Last 24 Hours: Laboratory Results - last 24 hr 10/27/16 10/28/16 10/28/16 Range/Units 16:22 05:40 05:40 WBC 4.20 L (4.23-9.07) K/mm3 RBC 4.16 L (4.63-6.08) M/mm3 Hgb 12.7 L (13.7-17.5) gm/L Hct 37.7 L (40.1-51.0) % MCV 90.6 (79.0-92.2) fl MCH 30.5 (25.7-32.2) pg MCHC 33.7 (32.2-35.5) g/dl RDW Std Deviation 42.6 (35.1-43.9) fL Plt Count 114 L (163-337) K/mm3 MPV 11.3 (9.4-12.3) fl Neut % (Auto) 50.0 (34.0-67.9) % Lymph % (Auto) 26.4 (21.8-53.1) % [place] % (Auto) 20.0 H (5.3-12.2) % Eos % (Auto) 3.6 (0.8-7.0) Baso % (Auto) 0.0 L (0.1-1.2) % Neut # (Auto) 2.10 (1.78-5.38) K/mm3 Lymph # (Auto) 1.11 L (1.32-3.57) K/mm3 [place] # (Auto) 0.84 H (0.30-0.82) K/mm3 Eos # (Auto) 0.15 (0.04-0.54) K/mm3 Baso # (Auto) 0.00 L (0.01-0.08) K/mm3 Manual Slide Review Abnormal smear Sodium 139 (136-145) mEq/L Potassium 3.4 L (3.5-5.1) mEq/L Chloride 104 (98-107) mEq/L Carbon Dioxide 28 (21-32) mEq/L Anion Gap 10.4 (5-15) BUN 2 L (7-18) mg/dL Creatinine 0.7 (0.7-1.3) mg/dL Est Cr Clr Drug Dosing 147.87 mL/min Estimated GFR (MDRD) > 60 (>60) mL/min BUN/Creatinine Ratio 2.9 L (14-18) Glucose 100 (74-106) mg/dL POC Glucose 119 H (70-105) mg/dL Calcium 9.0 (8.5-10.1) mg/dL Magnesium 1.6 L (1.8-2.4) mg/dl C-Reactive Protein 1.4 H* (<1.0) mg/dL Lipase 1346 H (73-393) U/L Med Orders - Current: Current Medications Clonidine HCl (Catapres) 0.1 mg PO BID [facility] Last Admin: 10/28/16 08:35 Dose: 0.1 mg Docusate Sodium (Colace) 100 mg PO DAILY PRN PRN Reason: Constipation Last Admin: 10/27/16 02:40 Dose: 100 mg Fluoxetine HCl (Prozac) 20 mg PO DAILY [facility] Last Admin: 10/28/16 08:37 Dose: 20 mg Folic Acid (Folic Acid) 1 mg PO DAILY [facility] Last Admin: 10/28/16 08:34 Dose: 1 mg Hydralazine HCl (Apresoline) 20 mg IVPUSH Q4H PRN PRN Reason: Hypertension Last Admin: 10/27/16 02:40 Dose: 20 mg Hydromorphone HCl (Dilaudid) 0.5 mg IVPUSH Q6H PRN PRN Reason: Pain (moderate 4-6) Hydromorphone HCl (Dilaudid) 1 mg IVPUSH Q6H PRN PRN Reason: Pain (severe 7-10) Ibuprofen (Motrin) 800 mg PO BID [facility] Last Admin: 10/28/16 14:07 Dose: 800 mg Lisinopril (Prinivil) 10 mg PO DAILY [facility] Last Admin: 10/28/16 13:11 Dose: 10 mg Lorazepam (Ativan) 0 mg IVPUSH ASDIRECTED PRN; Protocol PRN Reason: Withdrawal Symptoms Last Admin: 10/27/16 05:24 Dose: 1 mg Magnesium Sulfate (Pharmacy To Dose - Magnesium Replacement) 0 dose .XX ASDIRECTED PRN PRN Reason: RX TO WATCH MAG LEVELS Metoprolol Tartrate (Lopressor) 5 mg IVPUSH Q4H PRN PRN Reason: Tachycardia Nicotine (Habitrol) 21 mg TRDERM 2100 [facility] Last Admin: 10/27/16 21:11 Dose: 21 mg Ondansetron HCl (Zofran) 4 mg IVPUSH Q4H PRN PRN Reason: Nausea/Vomiting Last Admin: 10/27/16 04:25 Dose: 4 mg [facility] Potassium Chloride (Pharmacy To Dose - Potassium Replacement) 0 dose .XX ASDIRECTED PRN PRN Reason: RX TO WATCH K LEVELS Quetiapine Fumarate (Seroquel) 50 mg PO BEDTIME [facility] Last Admin: 10/27/16 20:29 Dose: 50 mg Senna/Docusate Sodium (Senna Plus) 1 tab PO DAILY PRN PRN Reason: Constipation Last Admin: 10/27/16 02:40 Dose: 1 tab Thiamine HCl (Vitamin B-1) 100 mg PO BEDTIME [facility] Last Admin: 10/27/16 20:28 Dose: 100 mg Topiramate (Topamax) 25 mg PO BID [facility] Stop: 11/02/16 21:01 Last Admin: 10/28/16 08:37 Dose: 25 mg Topiramate (Topamax) 50 mg PO BID [facility] Discontinued Medications Hydrocodone Bitart/Acetaminophen ([place] 325-5 Mg) 1 tab PO Q4H PRN PRN Reason: Pain/Fever Last Admin: 10/28/16 01:25 Dose: 1 tab Bumetanide (Bumex) 0.5 mg IVPUSH ONETIME ONE Stop: 10/26/16 16:37 Last Admin: 10/26/16 16:42 Dose: 0.5 mg Chlordiazepoxide HCl (Librium) 25 mg PO BID [facility] Last Admin: 10/25/16 20:41 Dose: 25 mg Chlordiazepoxide HCl (Librium) 25 mg PO TID [facility] Last Admin: 10/28/16 08:37 Dose: 25 mg Enoxaparin Sodium (Lovenox) 40 mg SUBCUT DAILY [facility] Last Admin: 10/26/16 08:53 Dose: 40 mg Hydralazine HCl (Apresoline) 20 mg IVPUSH ONETIME ONE Stop: 10/26/16 05:48 Last Admin: 10/26/16 05:55 Dose: 20 mg Hydralazine HCl (Apresoline) 20 mg IVPUSH Q6H PRN PRN Reason: Hypertension Hydromorphone HCl (Dilaudid) 0.5 mg IVPUSH ONETIME ONE Stop: 10/23/16 20:51 Last Admin: 10/23/16 21:26 Dose: 0.5 mg Hydromorphone HCl (Dilaudid) 0.5 mg IVPUSH STAT STA Stop: 10/23/16 22:30 Last Admin: 10/23/16 22:33 Dose: 0.5 mg Hydromorphone HCl (Dilaudid) 1 mg IVPUSH Q4H PRN PRN Reason: Pain Last Admin: 10/25/16 07:42 Dose: 1 mg Hydromorphone HCl (Dilaudid) 2 mg IVPUSH Q4H PRN PRN Reason: Pain Last Admin: 10/26/16 00:36 Dose: 2 mg Hydromorphone HCl (Dilaudid) 1 mg IVPUSH ONETIME ONE Stop: 10/26/16 04:48 Last Admin: 10/26/16 04:57 Dose: 1 mg Hydromorphone HCl (Dilaudid) 1 mg IVPUSH Q6H PRN PRN Reason: Pain Last Admin: 10/28/16 07:26 Dose: 1 mg Sodium Chloride (Normal Saline) 1,000 mls @ 999 mls/hr IV ONETIME ONE Stop: 10/23/16 22:16 Last Admin: 10/23/16 21:25 Dose: 999 mls/hr Magnesium Sulfate 2 gm/ Premix 50 mls @ 25 mls/hr IV ONETIME ONE Stop: 10/24/16 00:38 Last Admin: 10/23/16 23:20 Dose: 25 mls/hr Potassium Chloride/Sodium Chloride (1/2 Ns With 20 Meq Kcl) 1,000 mls @ 999 mls /hr IV ASDIRECTED [facility] Stop: 10/24/16 00:01 Last Admin: 10/23/16 23:20 Dose: 999 mls/hr Potassium Chloride/Sodium Chloride (1/2 Ns With 20 Meq Kcl) 1,000 mls @ 150 mls /hr IV ASDIRECTED [facility] Last Admin: 10/24/16 09:15 Dose: 150 mls/hr Potassium Chloride/Dextrose/Sod Cl (D5 1/2 Ns W/ 20 Meq/L Kcl) 1,000 mls @ 150 mls/hr IV ASDIRECTED [facility] Last Admin: 10/24/16 18:01 Dose: 150 mls/hr Magnesium Sulfate 2 gm/ Premix 50 mls @ 25 mls/hr IV Q2H [facility] Stop: 10/24/16 14:44 Last Admin: 10/24/16 14:54 Dose: 25 mls/hr Magnesium Sulfate 2 gm/ Premix 50 mls @ 25 mls/hr IV ONETIME ONE Stop: 10/24/16 19:25 Last Admin: 10/24/16 18:01 Dose: 25 mls/hr Potassium Chloride/Dextrose/Sod Cl (D5 Ns With 20 Meq Kcl) 1,000 mls @ 100 mls/ hr IV ASDIRECTED [facility] Last Admin: 10/25/16 22:11 Dose: 100 mls/hr Magnesium Sulfate 2 gm/ Premix 50 mls @ 25 mls/hr IV ONETIME ONE Stop: 10/26/16 08:35 Last Admin: 10/26/16 07:50 Dose: 25 mls/hr Dextrose/Sodium Chloride (Dextrose 5%-1/2 Ns) 1,000 mls @ 70 mls/hr IV ASDIRECTED [facility] Last Admin: 10/26/16 08:54 Dose: 70 mls/hr Dextrose/Sodium Chloride (Dextrose 5%-Normal Saline) 1,000 mls @ 200 mls/hr IV ASDIRECTED [facility] Last Admin: 10/28/16 07:55 Dose: 200 mls/hr Magnesium Sulfate 2 gm/ Premix 50 mls @ 25 mls/hr IV Q2H [facility] Stop: 10/27/16 13:44 Last Admin: 10/27/16 12:29 Dose: 25 mls/hr Magnesium Sulfate 2 gm/ Premix 50 mls @ 50 mls/hr IV ONETIME ONE Stop: 10/28/16 10:29 Last Admin: 10/28/16 09:54 Dose: 50 mls/hr Ketorolac Tromethamine (Toradol) 30 mg IVPUSH Q6H [facility] Stop: 10/26/16 16:31 Last Admin: 10/26/16 15:55 Dose: 30 mg Lorazepam (Ativan) 1 mg PO ONETIME ONE Stop: 10/23/16 23:39 Last Admin: 10/24/16 00:13 Dose: 1 mg Lorazepam (Ativan) 2 mg IVPUSH Q4H PRN PRN Reason: Seizures Metoprolol Tartrate (Lopressor) 5 mg IVPUSH Q6H PRN PRN Reason: Tachycardia Morphine Sulfate (Morphine) 4 mg IVPUSH ONETIME ONE Stop: 10/25/16 15:01 Last Admin: 10/25/16 14:29 Dose: 4 mg Nicotine (Habitrol) 21 mg TRDERM ONETIME ONE Stop: 10/24/16 00:31 Last Admin: 10/24/16 00:37 Dose: 21 mg Ondansetron HCl (Zofran) 4 mg IVPUSH ONETIME ONE Stop: 10/23/16 20:51 Last Admin: 10/23/16 21:27 Dose: 4 mg Oxycodone HCl (Oxycontin) 10 mg PO Q12HR [facility] Last Admin: 10/28/16 08:34 Dose: 10 mg Pantoprazole Sodium (Protonix Iv) 40 mg IVPUSH Q12H [facility] Last Admin: 10/26/16 23:30 Dose: 40 mg Pantoprazole Sodium (Protonix Iv) 40 mg IVPUSH Q12H [facility] Last Admin: 10/27/16 08:19 Dose: 40 mg Pantoprazole Sodium (Protonix) 40 mg PO DAILY@0700 [facility] Last Admin: 10/28/16 07:15 Dose: 40 mg Pneumococcal Polyvalent Vaccine (Pneumovax 23) 0.5 ml IM .ONCE ONE Stop: 10/24/16 08:13 Potassium Chloride (Klor-Con M20) 40 meq PO ONETIME ONE Stop: 10/27/16 08:01 Last Admin: 10/27/16 08:18 Dose: 40 meq Potassium Chloride (Klor-Con M20) 40 meq PO Q4H [facility] Stop: 10/28/16 13:31 Last Admin: 10/28/16 13:11 Dose: 40 meq - Exam Quality Assessment: DVT Prophylaxis General: Alert, Oriented, Cooperative, No Acute Distress HEENT: Pupils Equal, Pupils Reactive, Mucous Membr. Moist/[place] Neck: Supple Lungs: Clear to Auscultation, Normal Respiratory Effort Cardiovascular: Regular Rate, Regular Rhythm GI/Abdominal Exam: Normal Bowel Sounds, Soft, No Organomegaly, No Distention, No Mass, Tender (mild to upper abdomen with palpation today, RUQ, LUQ and epigastrium all equal) (Male) Exam: Deferred Extremities: Normal Inspection, No Pedal Edema, Normal Capillary Refill Peripheral Pulses: 2+: Dorsalis Pedis (L), Dorsalis Pedis (R) Skin: Warm Neurological: No New Focal Deficit Psy/Mental Status: Alert, Normal Affect - Problem List & Annotations (1) Acute alcoholic pancreatitis SNOMED Code(s): 034043116 Code(s): K85.2 - ALCOHOL INDUCED ACUTE PANCREATITIS * DO NOT USE * Status: Acute Priority: High Current Visit: Yes Qualifiers: Acute pancreatitis complication: no infection or necrosis Qualified Code(s) : K85.20 - Alcohol induced acute pancreatitis without necrosis or infection (2) Hypomagnesemia SNOMED Code(s): 748311493 Code(s): E83.42 - HYPOMAGNESEMIA Status: Acute Priority: High Current Visit: Yes (3) Hypokalemia SNOMED Code(s): 52985311 Code(s): E87.6 - HYPOKALEMIA Status: Acute Priority: High Current Visit : Yes (4) Alcohol abuse SNOMED Code(s): 29398459 Code(s): F10.10 - ALCOHOL ABUSE, UNCOMPLICATED Status: Chronic Priority: High Current Visit: Yes (5) Alcohol intoxication SNOMED Code(s): 33303225 Code(s): F10.129 - ALCOHOL ABUSE WITH INTOXICATION, UNSPECIFIED Status: Resolved Priority: High Current Visit: Yes (6) Injury of lower leg SNOMED Code(s): 318821535 Code(s): S89.90XA - UNSPECIFIED INJURY OF UNSPECIFIED LOWER LEG, INIT ENCNTR Status: Acute Priority: Medium Current Visit: No Onset Date: 10/12/13 Annotation/Comment:: blunt trauma to left leg and ankle bone - Problem List Review Problem List Initiated/Reviewed/Updated: Yes - My Orders Last 24 Hours: My Active Orders 10/28/16 12:15 Ambulate [RC] QID 10/28/16 12:30 Lisinopril [Prinivil] 10 mg PO DAILY 10/28/16 13:41 HYDROmorphone [Dilaudid] 0.5 mg IVPUSH Q6H PRN 10/28/16 13:42 HYDROmorphone [Dilaudid] 1 mg IVPUSH Q6H PRN 10/28/16 13:45 Ibuprofen [Motrin] 800 mg PO BID 10/28/16 16:00 Pantoprazole [ProTONIX] 40 mg PO BIDAC - Plan Plan:: Impression: Acute: Alcoholic Pancreatitis, Improved - Drinks heavy ETOH - Lipase is slowly trending down, still >1300 - Counseled on quitting ETOH; SA consult - NPO - IVF - Will adjust pain medications to taper off narcotics Alcohol Withdrawal Symptoms - Zero VISHNU level on admission - Has family history of alcoholism - CIWA score is improved, DC librium today - Continue CIWA protocol - SA has been consulted - Psych consult Chronic: Hypertension--start lisinopril today History of concussions ETOH Abuse Polysubstance abuse, no UDS done on this admission LE Fracture - metatarsal - He follows Dr. Barroso yesterday, cast removed per Ortho nurse yesterday. He is WBAT in CAM boot at all times when up. States no pain in his foot. Plan: He is fairly stable Continue NPO except ice chips, sips of water and oral meds until lipase <1000 then will advance to clear liquid diet. Cont IVF Psych consult with Dr. Upton with medication recommendations, see orders. Substance abuse consulted, see notes. Routine AM Labs DVT/GI prophylaxis CM/SW for d/c planning Patient is Full Code status LOS likely > 96 hrs due to slow response to treatment
[2016-10-28] MEDS: HYDROmorphone 0.5 MG/0.5 ML Syringe IVPUSH PRN (15:37)
[2016-10-28] MEDS: Pantoprazole 40 MG Tab.CR PO SCH (15:39)
[2016-10-28] MEDS: Thiamine 100 MG Tab PO SCH (20:25)
[2016-10-28] MEDS: QUEtiapine 25 MG Tab PO SCH (20:26)
[2016-10-28] MEDS: Nicotine 21 MG/24 Hr Patch TRDERM SCH (22:10)
[2016-10-29] MEDS: HYDROmorphone 1 MG/ML Syringe IVPUSH PRN ×2 (01:20→12:01)
[2016-10-29] MEDS: Pantoprazole 40 MG Tab.CR PO SCH ×2 (06:33→16:10)
[2016-10-29] MEDS: hydrALAZINE 20 MG/ML SDV IVPUSH PRN (06:38)
[2016-10-29] MEDS: LORazepam 2 MG/ML MDV IVPUSH PRN (08:51)
[2016-10-29] MEDS: cloNIDine 0.1 MG Tab PO SCH ×2 (08:52→20:06)
[2016-10-29] MEDS: Lisinopril 10 MG Tab PO SCH (08:52)
[2016-10-29] MEDS: FLUoxetine 20 MG Cap PO SCH (08:52)
[2016-10-29] MEDS: Topiramate 25 MG Tab PO SCH ×2 (08:52→20:06)
[2016-10-29] MEDS: Folic Acid 1 MG Tab PO SCH (08:54)
[2016-10-29] MEDS: Ibuprofen 800 MG Tab PO SCH (08:54)
[2016-10-29] MEDS: HYDROmorphone 0.5 MG/0.5 ML Syringe IVPUSH PRN ×2 (09:00→23:10)
--- NOTE | 2016-10-29 09:44 | PCM.PN ---
- General Info Date of Service: 10/29/16 Admission Dx/Problem (Free Text): Admission Diagnosis/Problem Admission Diagnosis/Problem Pancreatitis Pain continues to upper abdomen, rates at 9/10. Lipase still 1300 today. Remains NPO. Was able to drink contrast for abd/pelvis CT this morning, no vomiting. Is passing gas, last BM 2 days ago. Functional Status: Reports: Ambulating, Urinating. Denies: Tolerating Diet (NPO ) - Review of Systems General: Reports: Weakness, Fatigue. Denies: Appetite HEENT: Reports: No Symptoms Pulmonary: Reports: No Symptoms Cardiovascular: Reports: No Symptoms Gastrointestinal: Reports: Abdominal Pain, Decreased Appetite, Nausea. Denies: Diarrhea, Vomiting Genitourinary: Reports: No Symptoms Musculoskeletal: Reports: No Symptoms Skin: Reports: No Symptoms Neurological: Reports: No Symptoms Psychiatric: Reports: Anxiety, Cravings - Patient Data Vitals - Most Recent: Last Vital Signs Temp 97.3 F 10/29/16 07:43 Pulse 65 10/29/16 07:43 Resp 17 10/29/16 07:43 BP 137/75 10/29/16 08:52 Pulse Ox 99 10/29/16 07:43 Weight - Most Recent: 143 lb 8 oz I&O - Last 24 Hours: Intake & Output 10/28/16 10/29/16 10/29/16 22:59 06:59 14:59 Intake Total 1670 50 Output Total 1350 800 Balance 320 -750 Lab Results Last 24 Hours: Laboratory Results - last 24 hr 10/28/16 10/29/16 10/29/16 Range/Units 21:18 06:47 07:25 WBC 4.63 (4.23-9.07) K/mm3 RBC 4.91 (4.63-6.08) M/mm3 Hgb 15.2 (13.7-17.5) gm/L Hct 43.7 (40.1-51.0) % MCV 89.0 (79.0-92.2) fl MCH 31.0 (25.7-32.2) pg MCHC 34.8 (32.2-35.5) g/dl RDW Std Deviation 42.9 (35.1-43.9) fL Plt Count 165 (163-337) K/mm3 MPV 11.2 (9.4-12.3) fl Neut % (Auto) 44.1 (34.0-67.9) % Lymph % (Auto) 29.4 (21.8-53.1) % [place] % (Auto) 22.2 H (5.3-12.2) % Eos % (Auto) 3.9 (0.8-7.0) Baso % (Auto) 0.2 (0.1-1.2) % Neut # (Auto) 2.04 (1.78-5.38) K/mm3 Lymph # (Auto) 1.36 (1.32-3.57) K/mm3 [place] # (Auto) 1.03 H (0.30-0.82) K/mm3 Eos # (Auto) 0.18 (0.04-0.54) K/mm3 Baso # (Auto) 0.01 (0.01-0.08) K/mm3 Manual Slide Review Normal smear Sodium (136-145) mEq/L Potassium (3.5-5.1) mEq/L Chloride (98-107) mEq/L Carbon Dioxide (21-32) mEq/L Anion Gap (5-15) BUN (7-18) mg/dL Creatinine (0.7-1.3) mg/dL Est Cr Clr Drug Dosing mL/min Estimated GFR (MDRD) (>60) mL/min BUN/Creatinine Ratio (14-18) Glucose (74-106) mg/dL POC Glucose 90 64 L (70-105) mg/dL Calcium (8.5-10.1) mg/dL Magnesium (1.8-2.4) mg/dl Total Bilirubin (0.2-1.0) mg/dL AST (15-37) U/L ALT (16-63) U/L Alkaline Phosphatase (46-116) U/L C-Reactive Protein (<1.0) mg/dL Total Protein (6.4-8.2) g/dl Albumin (3.4-5.0) g/dl Globulin gm/dL Albumin/Globulin Ratio (1-2) Lipase (73-393) U/L 10/29/16 Range/Units 07:25 WBC (4.23-9.07) K/mm3 RBC (4.63-6.08) M/mm3 Hgb (13.7-17.5) gm/L Hct (40.1-51.0) % MCV (79.0-92.2) fl MCH (25.7-32.2) pg MCHC (32.2-35.5) g/dl RDW Std Deviation (35.1-43.9) fL Plt Count (163-337) K/mm3 MPV (9.4-12.3) fl Neut % (Auto) (34.0-67.9) % Lymph % (Auto) (21.8-53.1) % [place] % (Auto) (5.3-12.2) % Eos % (Auto) (0.8-7.0) Baso % (Auto) (0.1-1.2) % Neut # (Auto) (1.78-5.38) K/mm3 Lymph # (Auto) (1.32-3.57) K/mm3 [place] # (Auto) (0.30-0.82) K/mm3 Eos # (Auto) (0.04-0.54) K/mm3 Baso # (Auto) (0.01-0.08) K/mm3 Manual Slide Review Sodium 136 (136-145) mEq/L Potassium 4.0 (3.5-5.1) mEq/L Chloride 101 (98-107) mEq/L Carbon Dioxide 21 (21-32) mEq/L Anion Gap 18.0 H (5-15) BUN 6 L (7-18) mg/dL Creatinine 0.9 (0.7-1.3) mg/dL Est Cr Clr Drug Dosing 111.23 mL/min Estimated GFR (MDRD) > 60 (>60) mL/min BUN/Creatinine Ratio 6.7 L (14-18) Glucose 71 L (74-106) mg/dL POC Glucose (70-105) mg/dL Calcium 10.1 (8.5-10.1) mg/dL Magnesium 1.6 L (1.8-2.4) mg/dl Total Bilirubin 1.0 (0.2-1.0) mg/dL AST 82 H (15-37) U/L ALT 65 H (16-63) U/L Alkaline Phosphatase 90 (46-116) U/L C-Reactive Protein 1.1 H* (<1.0) mg/dL Total Protein 7.5 (6.4-8.2) g/dl Albumin 3.6 (3.4-5.0) g/dl Globulin 3.9 gm/dL Albumin/Globulin Ratio 0.9 L (1-2) Lipase 1313 H (73-393) U/L Med Orders - Current: Current Medications Clonidine HCl (Catapres) 0.1 mg PO BID [facility] Last Admin: 10/29/16 08:52 Dose: 0.1 mg Docusate Sodium (Colace) 100 mg PO DAILY PRN PRN Reason: Constipation Last Admin: 10/27/16 02:40 Dose: 100 mg Fluoxetine HCl (Prozac) 20 mg PO DAILY [facility] Last Admin: 10/29/16 08:52 Dose: 20 mg Folic Acid (Folic Acid) 1 mg PO DAILY [facility] Last Admin: 10/29/16 08:54 Dose: 1 mg Hydralazine HCl (Apresoline) 20 mg IVPUSH Q4H PRN PRN Reason: Hypertension Last Admin: 10/29/16 06:38 Dose: 20 mg Hydromorphone HCl (Dilaudid) 0.5 mg IVPUSH Q6H PRN PRN Reason: Pain (moderate 4-6) Last Admin: 10/29/16 09:00 Dose: 0.5 mg Hydromorphone HCl (Dilaudid) 1 mg IVPUSH Q6H PRN PRN Reason: Pain (severe 7-10) Last Admin: 10/29/16 01:20 Dose: 1 mg Ibuprofen (Motrin) 800 mg PO BID [facility] Last Admin: 10/29/16 08:54 Dose: Not Given Lisinopril (Prinivil) 10 mg PO DAILY [facility] Last Admin: 10/29/16 08:52 Dose: 10 mg Lorazepam (Ativan) 0 mg IVPUSH ASDIRECTED PRN; Protocol PRN Reason: Withdrawal Symptoms Last Admin: 10/29/16 08:51 Dose: 1 mg Magnesium Sulfate (Pharmacy To Dose - Magnesium Replacement) 0 dose .XX ASDIRECTED PRN PRN Reason: RX TO WATCH MAG LEVELS Metoprolol Tartrate (Lopressor) 5 mg IVPUSH Q4H PRN PRN Reason: Tachycardia Nicotine (Habitrol) 21 mg TRDERM 2100 [facility] Last Admin: 10/28/16 22:10 Dose: 21 mg Ondansetron HCl (Zofran) 4 mg IVPUSH Q4H PRN PRN Reason: Nausea/Vomiting Last Admin: 10/27/16 04:25 Dose: 4 mg Pantoprazole Sodium (Protonix) 40 mg PO BIDAC [facility] Last Admin: 10/29/16 06:33 Dose: 40 mg Potassium Chloride (Pharmacy To Dose - Potassium Replacement) 0 dose .XX ASDIRECTED PRN PRN Reason: RX TO WATCH K LEVELS Quetiapine Fumarate (Seroquel) 50 mg PO BEDTIME [facility] Last Admin: 10/28/16 20:26 Dose: 50 mg Senna/Docusate Sodium (Senna Plus) 1 tab PO DAILY PRN PRN Reason: Constipation Last Admin: 10/27/16 02:40 Dose: 1 tab Thiamine HCl (Vitamin B-1) 100 mg PO BEDTIME [facility] Last Admin: 10/28/16 20:25 Dose: 100 mg Topiramate (Topamax) 25 mg PO BID [facility] Stop: 11/02/16 21:01 Last Admin: 10/29/16 08:52 Dose: 25 mg Topiramate (Topamax) 50 mg PO BID [facility] Discontinued Medications Hydrocodone Bitart/Acetaminophen ([place]ver 325-5 Mg) 1 tab PO Q4H PRN PRN Reason: Pain/Fever Last Admin: 10/28/16 01:25 Dose: 1 tab Bumetanide (Bumex) 0.5 mg IVPUSH ONETIME ONE Stop: 10/26/16 16:37 Last Admin: 10/26/16 16:42 Dose: 0.5 mg Chlordiazepoxide HCl (Librium) 25 mg PO BID [facility] Last Admin: 10/25/16 20:41 Dose: 25 mg Chlordiazepoxide HCl (Librium) 25 mg PO TID [facility] Last Admin: 10/28/16 08:37 Dose: 25 mg Enoxaparin Sodium (Lovenox) 40 mg SUBCUT DAILY [facility] Last Admin: 10/26/16 08:53 Dose: 40 mg Hydralazine HCl (Apresoline) 20 mg IVPUSH ONETIME ONE Stop: 10/26/16 05:48 Last Admin: 10/26/16 05:55 Dose: 20 mg Hydralazine HCl (Apresoline) 20 mg IVPUSH Q6H PRN PRN Reason: Hypertension Hydromorphone HCl (Dilaudid) 0.5 mg IVPUSH ONETIME ONE Stop: 10/23/16 20:51 Last Admin: 10/23/16 21:26 Dose: 0.5 mg Hydromorphone HCl (Dilaudid) 0.5 mg IVPUSH STAT STA Stop: 10/23/16 22:30 Last Admin: 10/23/16 22:33 Dose: 0.5 mg Hydromorphone HCl (Dilaudid) 1 mg IVPUSH Q4H PRN PRN Reason: Pain Last Admin: 10/25/16 07:42 Dose: 1 mg Hydromorphone HCl (Dilaudid) 2 mg IVPUSH Q4H PRN PRN Reason: Pain Last Admin: 10/26/16 00:36 Dose: 2 mg Hydromorphone HCl (Dilaudid) 1 mg IVPUSH ONETIME ONE Stop: 10/26/16 04:48 Last Admin: 10/26/16 04:57 Dose: 1 mg Hydromorphone HCl (Dilaudid) 1 mg IVPUSH Q6H PRN PRN Reason: Pain Last Admin: 10/28/16 07:26 Dose: 1 mg Sodium Chloride (Normal Saline) 1,000 mls @ 999 mls/hr IV ONETIME ONE Stop: 10/23/16 22:16 Last Admin: 10/23/16 21:25 Dose: 999 mls/hr Magnesium Sulfate 2 gm/ Premix 50 mls @ 25 mls/hr IV ONETIME ONE Stop: 10/24/16 00:38 Last Admin: 10/23/16 23:20 Dose: 25 mls/hr Potassium Chloride/Sodium Chloride (1/2 Ns With 20 Meq Kcl) 1,000 mls @ 999 mls /hr IV ASDIRECTED [facility] Stop: 10/24/16 00:01 Last Admin: 10/23/16 23:20 Dose: 999 mls/hr Potassium Chloride/Sodium Chloride (1/2 Ns With 20 Meq Kcl) 1,000 mls @ 150 mls /hr IV ASDIRECTED [facility] Last Admin: 10/24/16 09:15 Dose: 150 mls/hr Potassium Chloride/Dextrose/Sod Cl (D5 1/2 Ns W/ 20 Meq/L Kcl) 1,000 mls @ 150 mls/hr IV ASDIRECTED [facility] Last Admin: 10/24/16 18:01 Dose: 150 mls/hr Magnesium Sulfate 2 gm/ Premix 50 mls @ 25 mls/hr IV Q2H [facility] Stop: 10/24/16 14:44 Last Admin: 10/24/16 14:54 Dose: 25 mls/hr Magnesium Sulfate 2 gm/ Premix 50 mls @ 25 mls/hr IV ONETIME ONE Stop: 10/24/16 19:25 Last Admin: 10/24/16 18:01 Dose: 25 mls/hr Potassium Chloride/Dextrose/Sod Cl (D5 Ns With 20 Meq Kcl) 1,000 mls @ 100 mls/ hr IV ASDIRECTED [facility] Last Admin: 10/25/16 22:11 Dose: 100 mls/hr Magnesium Sulfate 2 gm/ Premix 50 mls @ 25 mls/hr IV ONETIME ONE Stop: 10/26/16 08:35 Last Admin: 10/26/16 07:50 Dose: 25 mls/hr Dextrose/Sodium Chloride (Dextrose 5%-1/2 Ns) 1,000 mls @ 70 mls/hr IV ASDIRECTED [facility] Last Admin: 10/26/16 08:54 Dose: 70 mls/hr Dextrose/Sodium Chloride (Dextrose 5%-Normal Saline) 1,000 mls @ 200 mls/hr IV ASDIRECTED [facility] Last Admin: 10/28/16 07:55 Dose: 200 mls/hr Magnesium Sulfate 2 gm/ Premix 50 mls @ 25 mls/hr IV Q2H [facility] Stop: 10/27/16 13:44 Last Admin: 10/27/16 12:29 Dose: 25 mls/hr Magnesium Sulfate 2 gm/ Premix 50 mls @ 50 mls/hr IV ONETIME ONE Stop: 10/28/16 10:29 Last Admin: 10/28/16 09:54 Dose: 50 mls/hr Ketorolac Tromethamine (Toradol) 30 mg IVPUSH Q6H [facility] Stop: 10/26/16 16:31 Last Admin: 10/26/16 15:55 Dose: 30 mg Lorazepam (Ativan) 1 mg PO ONETIME ONE Stop: 10/23/16 23:39 Last Admin: 10/24/16 00:13 Dose: 1 mg Lorazepam (Ativan) 2 mg IVPUSH Q4H PRN PRN Reason: Seizures Metoprolol Tartrate (Lopressor) 5 mg IVPUSH Q6H PRN PRN Reason: Tachycardia Morphine Sulfate (Morphine) 4 mg IVPUSH ONETIME ONE Stop: 10/25/16 15:01 Last Admin: 10/25/16 14:29 Dose: 4 mg Nicotine (Habitrol) 21 mg TRDERM ONETIME ONE Stop: 10/24/16 00:31 Last Admin: 10/24/16 00:37 Dose: 21 mg Ondansetron HCl (Zofran) 4 mg IVPUSH ONETIME ONE Stop: 10/23/16 20:51 Last Admin: 10/23/16 21:27 Dose: 4 mg Oxycodone HCl (Oxycontin) 10 mg PO Q12HR [facility] Last Admin: 10/28/16 08:34 Dose: 10 mg Pantoprazole Sodium (Protonix Iv) 40 mg IVPUSH Q12H [facility] Last Admin: 10/26/16 23:30 Dose: 40 mg Pantoprazole Sodium (Protonix Iv) 40 mg IVPUSH Q12H [facility] Last Admin: 10/27/16 08:19 Dose: 40 mg Pantoprazole Sodium (Protonix) 40 mg PO DAILY@0700 [facility] Last Admin: 10/28/16 07:15 Dose: 40 mg Pneumococcal Polyvalent Vaccine (Pneumovax 23) 0.5 ml IM .ONCE ONE Stop: 10/24/16 08:13 Potassium Chloride (Klor-Con M20) 40 meq PO ONETIME ONE Stop: 10/27/16 08:01 Last Admin: 10/27/16 08:18 Dose: 40 meq Potassium Chloride (Klor-Con M20) 40 meq PO Q4H [facility] Stop: 10/28/16 13:31 Last Admin: 10/28/16 13:11 Dose: 40 meq - Exam Quality Assessment: DVT Prophylaxis General: Alert, Oriented, Cooperative, No Acute Distress HEENT: Pupils Equal, EOMI, Mucous Membr. Moist/[place] Neck: Supple Lungs: Clear to Auscultation, Normal Respiratory Effort, Decreased Breath Sounds (bases) Cardiovascular: Regular Rate, Regular Rhythm GI/Abdominal Exam: Normal Bowel Sounds, Soft, Tender (epigastrium, RUQ, LLQ) (Male) Exam: Deferred Extremities: Normal Inspection, No Pedal Edema Peripheral Pulses: 2+: Dorsalis Pedis (L), Dorsalis Pedis (R) Skin: Warm, Dry, Intact Neurological: No New Focal Deficit Psy/Mental Status: Alert, Normal Affect, Normal Mood - Problem List & Annotations (1) Acute alcoholic pancreatitis SNOMED Code(s): 904858425 Code(s): K85.2 - ALCOHOL INDUCED ACUTE PANCREATITIS * DO NOT USE * Status: Acute Priority: High Current Visit: Yes Qualifiers: Acute pancreatitis complication: no infection or necrosis Qualified Code(s) : K85.20 - Alcohol induced acute pancreatitis without necrosis or infection (2) Hypomagnesemia SNOMED Code(s): 007819297 Code(s): E83.42 - HYPOMAGNESEMIA Status: Acute Priority: High Current Visit: Yes (3) Hypokalemia SNOMED Code(s): 17485320 Code(s): E87.6 - HYPOKALEMIA Status: Acute Priority: High Current Visit : Yes (4) Alcohol abuse SNOMED Code(s): 00183692 Code(s): F10.10 - ALCOHOL ABUSE, UNCOMPLICATED Status: Chronic Priority: High Current Visit: Yes (5) Alcohol intoxication SNOMED Code(s): 08454004 Code(s): F10.129 - ALCOHOL ABUSE WITH INTOXICATION, UNSPECIFIED Status: Resolved Priority: High Current Visit: Yes (6) Injury of lower leg SNOMED Code(s): 132350412 Code(s): S89.90XA - UNSPECIFIED INJURY OF UNSPECIFIED LOWER LEG, INIT ENCNTR Status: Acute Priority: Medium Current Visit: No Onset Date: 10/12/13 Annotation/Comment:: blunt trauma to left leg and ankle bone - Problem List Review Problem List Initiated/Reviewed/Updated: Yes - My Orders Last 24 Hours: My Active Orders 10/28/16 12:15 Ambulate [RC] QID 10/28/16 12:30 Lisinopril [Prinivil] 10 mg PO DAILY 10/28/16 13:41 HYDROmorphone [Dilaudid] 0.5 mg IVPUSH Q6H PRN 10/28/16 13:42 HYDROmorphone [Dilaudid] 1 mg IVPUSH Q6H PRN 10/28/16 13:45 Ibuprofen [Motrin] 800 mg PO BID 10/28/16 16:00 Pantoprazole [ProTONIX] 40 mg PO BIDAC 10/29/16 09:37 Abdomen Pelvis w Cont [CT] Routine - Plan Plan:: Impression: Acute: Alcoholic Pancreatitis, Improved - Drinks heavy ETOH - Lipase is slowly trending down, still >1300; pain still 9/10, will order CT of abd/pelvis to r/o abscess or other structural abnormality -CT without findings of pancreatitis, fatty infiltration within liver noted - Elevated lipase is chronic due to alcohol abuse - Counseled on quitting ETOH; SA consult - As CT without findings of pancreatitis will advance to clear liquid diet - IVF - Will adjust pain medications to taper off narcotics Alcohol Withdrawal Symptoms - Zero VISHNU level on admission - Has family history of alcoholism - CIWA score is improved, DC librium - Continue CIWA protocol - SA has been consulted - Psych consult - Withdrawl is completed; [facility] working with for placement, is committed Chronic: Hypertension--start lisinopril History of concussions ETOH Abuse Polysubstance abuse, no UDS done on this admission LE Fracture - metatarsal - He follows Dr. Barroso yesterday, cast removed per Ortho nurse yesterday. He is WBAT in CAM boot at all times when up. States no pain in his foot. Plan: He is fairly stable Continue NPO except ice chips, sips of water and oral meds until lipase <1000 then will advance to clear liquid diet. Cont IVF Psych consult with Dr. Upton with medication recommendations, see orders. Substance abuse consulted, see notes. Routine AM Labs DVT/GI prophylaxis CM/SW for d/c planning Patient is Full Code status LOS likely > 96 hrs due to slow response to treatment
[2016-10-29] MEDS ORDERED: Sodium Chloride 0.9% 10 ML Syringe FLUSH PRN (10:25)
[2016-10-29] MEDS ORDERED: Iopamidol 612 MG/ML 100 ML Bottle IVPUSH ONE (10:25)
[2016-10-29] MEDS ORDERED: Diatrizoate Meglumine/Diatrizoate Sodium 37% 120 ML Bottle PO ONE (10:25)
[2016-10-29] MEDS: Dextrose 5%-0.9% NaCl 1,000 ML IV SCH ×3 (10:33→23:04)
--- NOTE | 2016-10-29 11:08 | CONS ---
CONSULTING PHYSICIAN: Fabrizio Souza LAC DATE OF CONSULTATION: 10/29/2016 TIME: 9:49 a.m. The patient is a 36-year-old male, who was admitted to [facility] on 10/23/2016. An alcohol and drug consultation was requested by his medical treatment team. An evaluation was completed on 10/28/2016. SOURCE OF INFORMATION: Hospital records, the patient's self report, background research, and prescription drug monitoring report. The patient denied consent to speak with family collateral. PSYCHOSOCIAL HISTORY: FAMILY: The patient reports that he was born and raised in [place], [place], by his biological parents who are still together. He has 2 brothers, 1 younger and 1 older. He is the middle child. He describes his life growing up as respectful. He has never been . However, he had a serious girlfriend and they broke up 5 years ago because he states she would not stop drinking but wanted him to. The patient has no children. The patient graduated from [employer] in 2000. 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 The patient denies any critical or traumatic life events. The patient denies being a victim or perpetrator of abuse or neglect. SOCIOECONOMIC: The patient reports that after he graduated from high school he went to work in [place] for a [employer] company for 2 years from 2000 to 2002. After that he went to work for a [employer] and worked over for about 2 years. He then went to work for a [employer] company for a year. In 2006, he began working for [employer] until 2008. He also worked briefly after that for [employer] until he moved to [facility] [employer]. He also went to work for [employer] for about 5 months. 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 MENTAL HEALTH HISTORY: The patient reports depression and anxiety that appear to be increasing with continued drinking. Dr. Upton has diagnosed the patient with major depressive episode, severe; and anxiety disorder, NOS; as well as psychosis, NOS. It was also a rule out for bipolar affective disease, mixed type. SUBSTANCE USE: Nicotine: The patient reports he started smoking at age 21. He currently smokes 2 packs a day. Alcohol: The patient reported that he started drinking at 20, typically drinking on the weekends, sharing an 18 pack with a friend. He got his first DUI in 2002. While working at [employer], he drank once a month, as he was working 7 days a week, typically drinking 6 to 12 beers. From 2004 to 2006, he drank approximately twice a month, typically 6 to 12 beers. The patient got 3 DUI charges in 2004 and stated that he did AA once a week and went to [facility] on a release from [facility]. He had lost his license for 8 years. From 2005 to 2009, he was drinking on the weekends, typically drinking 6 to 12 beers, and got another DUI in 2011. In 2013, he was admitted to [facility] with a VISHNU of 0.40 and in combination used with oxycodone. He had been drinking daily at that point, typically a 175 of whiskey per day. This pattern of drinking appears to have been sustained for the past several years, and he is now reporting drinking a half gallon of whiskey per day. He experiences serious withdrawals including alcohol-related seizures. 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 DSM-5 CRITERIA: The patient meets DSM-5 criteria for the following diagnoses: 1. F10.20, alcohol use disorder, severe. 2. F10.232, alcohol withdrawal with perceptual disturbance. 3. F17.200, tobacco use disorder, severe. 4. F12.20, cannabis use disorder, severe, rule out. ASAM DIMENSIONS: Dimension 1: Score 2. The patient has some difficulty tolerating and coping with withdrawal discomfort, intoxication may be severe but responds to support and treatment. Dimension 2: Score 3. The patient tolerates and crystal poorly with physical problems and has poor general health. He presents with severe pancreatitis, alcohol-related. Dimension 3: Score 2. The patient has difficulty with impulse control and lacks coping skills. He has difficulty functioning in significant life areas and presents with a mental health diagnosis. Dimension 4: Score 4. The patient is verbalizing that he does not want and is unwilling to explore change in is in total denial of his illness and his implications. Dimension 5: Score 3+. The patient has very little recognition and understanding of relapse and recidivism issues and displays high vulnerability for further substance use or mental health problems. Dimension 6: Score 3. The patient is not engaged in structured meaningful activity. However, he does have a supportive family but desires to have his freedom back as he is still living with his parents at this time. ASSESSMENT SUMMARY: The patient is a 36-year-old man who appears to be in stage IV alcoholism manifesting with physiological and psychological dependence increasing mental health complications with depression and anxiety, acknowledges willful destruction of major life organ systems with an inability to stop drinking and impairment in significant life areas. In speaking with him, it seems that he drinks with willful defiance of himself and those that love him. He is displaying lack of capacity to use self-control and a maladaptive pattern of alcohol use. He opposes intervention by family or professionals to assist him in achieving sobriety. He states that he can "do it on his own." He has completed 2 residential treatment programs; 1 under a petition for involuntary commitment to the [facility] in 2013, and 6 months ago, at [facility]. However, he was only able to sustain sobriety for approximately a month and a half. His current medical condition is a result of the seriousness of his alcoholism and it is incumbent upon medical communication specialist to assist this patient in achieving sobriety. I have spoken with JAVI Turk, who is in agreement with a petition for involuntary commitment. However, I have not spoken with Dr. Ayala as of 10/29/2016 for his input. RECOMMENDATIONS: The patient meets ASAM criteria for level 3.5, clinically managed medium intensity residential treatment. A petition for involuntary commitment was executed on 10/28/2016 for any admitting facility. Danni Collier will be coordinating continued care at an admitting facility. MMODAL /[id number]
[2016-10-29] MEDS ORDERED: Magnesium Sulfate/Water 2 GM in Premix Bag 1 BAG IV ONE (11:30)
--- NOTE | 2016-10-29 12:00 | CT ---
CT abdomen and pelvis Technique: Multiple axial sections from above the dome of the diaphragm inferiorly through the pubic symphysis. Intravenous and oral contrast was utilized. Comparison: Previous CT abdomen and pelvis exam of 02/16/16. Findings: Very minimal bilateral pleural effusions are seen. Visualized lung bases otherwise are clear. Mild fatty infiltration is seen within the liver. Spleen appears within normal limits. Adrenal glands show no nodule. Kidneys show symmetric contrast enhancement without hydronephrosis or mass. Pancreas appears within normal limits. No inflammatory change is identified around the pancreas. Gallbladder shows no calcified gallstones. Aorta shows no aneurysmal dilatation. No retroperitoneal adenopathy or mesenteric abnormalities are seen. No pelvic mass or adenopathy is identified. Delayed images show contrast within the distal ureters and within the bladder. Retrocecal appendix is seen which appears normal. Bone window settings were reviewed which appear within normal limits for the patient's age. Impression: 1. No findings of pancreatitis by CT exam. 2. Fatty infiltration noted within the liver. 3. Very minimal bilateral pleural effusions are seen. Diagnostic code #3
[2016-10-29] MEDS: Ketorolac 30 MG/ML SDV IVPUSH SCH ×2 (12:33→20:04)
[2016-10-29] MEDS: QUEtiapine 25 MG Tab PO SCH (20:05)
[2016-10-29] MEDS: Thiamine 100 MG Tab PO SCH (20:06)
[2016-10-29] MEDS: Nicotine 21 MG/24 Hr Patch TRDERM SCH (21:44)
[2016-10-30] MEDS: Dextrose 5%-0.9% NaCl 1,000 ML IV SCH (08:25)
[2016-10-30] MEDS: Pantoprazole 40 MG Tab.CR PO SCH ×2 (08:27→17:09)
[2016-10-30] MEDS: Ketorolac 30 MG/ML SDV IVPUSH SCH ×3 (08:30→20:38)
[2016-10-30] MEDS: Folic Acid 1 MG Tab PO SCH (08:44)
[2016-10-30] MEDS: Lisinopril 10 MG Tab PO SCH (08:44)
[2016-10-30] MEDS: FLUoxetine 20 MG Cap PO SCH (08:44)
[2016-10-30] MEDS: Topiramate 25 MG Tab PO SCH ×2 (08:44→20:39)
[2016-10-30] MEDS: cloNIDine 0.1 MG Tab PO SCH (08:44)
[2016-10-30] MEDS ORDERED: Magnesium Sulfate/Water 4 GM in Premix Bag 1 BAG IV ONE (10:00)
[2016-10-30] MEDS: HYDROmorphone 1 MG/ML Syringe IVPUSH PRN (17:10)
--- NOTE | 2016-10-30 19:31 | PCM.PN ---
- General Info Date of Service: 10/30/16 Admission Dx/Problem (Free Text): Admission Diagnosis/Problem Admission Diagnosis/Problem Pancreatitis Pain continues to upper abdomen, rates at 9/10. Lipase still 1300 today. Remains NPO. Was able to drink contrast for abd/pelvis CT this morning, no vomiting. Is passing gas, last BM 2 days ago. Subjective Update: Follow Up Functional Status: Reports: Pain Controlled, Tolerating Diet, Ambulating, Urinating - Review of Systems General: Denies: Fever, Weakness, Fatigue, Malaise, Chills HEENT: Reports: No Symptoms Pulmonary: Denies: Shortness of Breath Cardiovascular: Denies: Chest Pain Gastrointestinal: Reports: Abdominal Pain. Denies: Nausea, Vomiting Genitourinary: Reports: No Symptoms Musculoskeletal: Reports: No Symptoms Skin: Denies: Cyanosis, Jaundice, Pallor, Diaphoresis, Pruritis Neurological: Denies: Confusion, Dizziness, Difficulty Walking, Weakness, Gait Disturbance Psychiatric: Reports: No Symptoms. Denies: Depression, Anxiety, Hallucinations , Suicidal Ideation, Homicidal Ideation Systems Review Comment:: No significant overnight or acute issues. His CIWA score is zero. He still asking dilaudid round the clock for his abdominal pain. His CRP is now 0.4. He is tolerating clear liquids. He has no new complaints. - Patient Data Vitals - Most Recent: Last Vital Signs Temp 36.8 C 10/30/16 12:42 Pulse 74 10/30/16 12:42 Resp 12 10/30/16 12:42 BP 122/78 10/30/16 12:42 Pulse Ox 96 10/30/16 12:42 Weight - Most Recent: 65.091 kg I&O - Last 24 Hours: Intake & Output 10/30/16 10/30/16 10/30/16 06:59 14:59 22:59 Intake Total 2810 360 300 Output Total 603 900 Balance 2207 360 -600 Lab Results Last 24 Hours: Laboratory Results - last 24 hr 10/30/16 10/30/16 10/30/16 Range/Units 07:01 09:00 09:00 Sodium 138 (136-145) mEq/L Potassium 3.9 (3.5-5.1) mEq/L Chloride 108 H (98-107) mEq/L Carbon Dioxide 22 (21-32) mEq/L Anion Gap 11.9 (5-15) BUN 6 L (7-18) mg/dL Creatinine 0.9 (0.7-1.3) mg/dL Est Cr Clr Drug Dosing 106.48 mL/min Estimated GFR (MDRD) > 60 (>60) mL/min BUN/Creatinine Ratio 6.7 L (14-18) Glucose 114 H (74-106) mg/dL POC Glucose 131 H (70-105) mg/dL Calcium 8.7 (8.5-10.1) mg/dL Magnesium 1.4 L (1.8-2.4) mg/dl C-Reactive Protein 0.4 (<1.0) mg/dL Med Orders - Current: Current Medications Clonidine HCl (Catapres) 0.1 mg PO BID [facility] Last Admin: 10/30/16 08:44 Dose: 0.1 mg Docusate Sodium (Colace) 100 mg PO DAILY PRN PRN Reason: Constipation Last Admin: 10/27/16 02:40 Dose: 100 mg Fluoxetine HCl (Prozac) 20 mg PO DAILY [facility] Last Admin: 10/30/16 08:44 Dose: 20 mg Folic Acid (Folic Acid) 1 mg PO DAILY [facility] Last Admin: 10/30/16 08:44 Dose: 1 mg Hydralazine HCl (Apresoline) 20 mg IVPUSH Q4H PRN PRN Reason: Hypertension Last Admin: 10/29/16 06:38 Dose: 20 mg Hydromorphone HCl (Dilaudid) 0.5 mg IVPUSH Q6H PRN PRN Reason: Pain (moderate 4-6) Last Admin: 10/29/16 23:10 Dose: 0.5 mg Hydromorphone HCl (Dilaudid) 1 mg IVPUSH Q6H PRN PRN Reason: Pain (severe 7-10) Last Admin: 10/30/16 17:10 Dose: 1 mg Ketorolac Tromethamine (Toradol) 30 mg IVPUSH Q8H [facility] Stop: 10/31/16 04:31 Last Admin: 10/30/16 11:52 Dose: 30 mg Lisinopril (Prinivil) 10 mg PO DAILY [facility] Last Admin: 10/30/16 08:44 Dose: 10 mg Lorazepam (Ativan) 0 mg IVPUSH ASDIRECTED PRN; Protocol PRN Reason: Withdrawal Symptoms Last Admin: 10/29/16 08:51 Dose: 1 mg Magnesium Sulfate (Pharmacy To Dose - Magnesium Replacement) 0 dose .XX ASDIRECTED PRN PRN Reason: RX TO WATCH MAG LEVELS Metoprolol Tartrate (Lopressor) 5 mg IVPUSH Q4H PRN PRN Reason: Tachycardia Nicotine (Habitrol) 21 mg TRDERM 2100 [facility] Last Admin: 10/29/16 21:44 Dose: 21 mg Ondansetron HCl (Zofran) 4 mg IVPUSH Q4H PRN PRN Reason: Nausea/Vomiting Last Admin: 10/27/16 04:25 Dose: 4 mg Pantoprazole Sodium (Protonix) 40 mg PO BIDAC [facility] Last Admin: 10/30/16 17:09 Dose: 40 mg Potassium Chloride (Pharmacy To Dose - Potassium Replacement) 0 dose .XX ASDIRECTED PRN PRN Reason: RX TO WATCH K LEVELS Quetiapine Fumarate (Seroquel) 50 mg PO BEDTIME [facility] Last Admin: 10/29/16 20:05 Dose: 50 mg Senna/Docusate Sodium (Senna Plus) 1 tab PO DAILY PRN PRN Reason: Constipation Last Admin: 10/27/16 02:40 Dose: 1 tab Sodium Chloride (Saline Flush) 10 ml FLUSH ONETIME PRN PRN Reason: IV FLUSH Last Admin: 10/29/16 11:12 Dose: 10 ml Thiamine HCl (Vitamin B-1) 100 mg PO BEDTIME [facility] Last Admin: 10/29/16 20:06 Dose: 100 mg Topiramate (Topamax) 25 mg PO BID [facility] Stop: 11/02/16 21:01 Last Admin: 10/30/16 08:44 Dose: 25 mg Topiramate (Topamax) 50 mg PO BID [facility] Discontinued Medications Hydrocodone Bitart/Acetaminophen ([place] 325-5 Mg) 1 tab PO Q4H PRN PRN Reason: Pain/Fever Last Admin: 10/28/16 01:25 Dose: 1 tab Bumetanide (Bumex) 0.5 mg IVPUSH ONETIME ONE Stop: 10/26/16 16:37 Last Admin: 10/26/16 16:42 Dose: 0.5 mg Chlordiazepoxide HCl (Librium) 25 mg PO BID [facility] Last Admin: 10/25/16 20:41 Dose: 25 mg Chlordiazepoxide HCl (Librium) 25 mg PO TID [facility] Last Admin: 10/28/16 08:37 Dose: 25 mg Diatrizoate Meglum/Diatrizoate Sod (Gastrografin 37%) 120 ml PO ONETIME ONE Stop: 10/29/16 10:26 Last Admin: 10/29/16 11:12 Dose: 90 ml Enoxaparin Sodium (Lovenox) 40 mg SUBCUT DAILY [facility] Last Admin: 10/26/16 08:53 Dose: 40 mg Hydralazine HCl (Apresoline) 20 mg IVPUSH ONETIME ONE Stop: 10/26/16 05:48 Last Admin: 10/26/16 05:55 Dose: 20 mg Hydralazine HCl (Apresoline) 20 mg IVPUSH Q6H PRN PRN Reason: Hypertension Hydromorphone HCl (Dilaudid) 0.5 mg IVPUSH ONETIME ONE Stop: 10/23/16 20:51 Last Admin: 10/23/16 21:26 Dose: 0.5 mg Hydromorphone HCl (Dilaudid) 0.5 mg IVPUSH STAT STA Stop: 10/23/16 22:30 Last Admin: 10/23/16 22:33 Dose: 0.5 mg Hydromorphone HCl (Dilaudid) 1 mg IVPUSH Q4H PRN PRN Reason: Pain Last Admin: 10/25/16 07:42 Dose: 1 mg Hydromorphone HCl (Dilaudid) 2 mg IVPUSH Q4H PRN PRN Reason: Pain Last Admin: 10/26/16 00:36 Dose: 2 mg Hydromorphone HCl (Dilaudid) 1 mg IVPUSH ONETIME ONE Stop: 10/26/16 04:48 Last Admin: 10/26/16 04:57 Dose: 1 mg Hydromorphone HCl (Dilaudid) 1 mg IVPUSH Q6H PRN PRN Reason: Pain Last Admin: 10/28/16 07:26 Dose: 1 mg Sodium Chloride (Normal Saline) 1,000 mls @ 999 mls/hr IV ONETIME ONE Stop: 10/23/16 22:16 Last Admin: 10/23/16 21:25 Dose: 999 mls/hr Magnesium Sulfate 2 gm/ Premix 50 mls @ 25 mls/hr IV ONETIME ONE Stop: 10/24/16 00:38 Last Admin: 10/23/16 23:20 Dose: 25 mls/hr Potassium Chloride/Sodium Chloride (1/2 Ns With 20 Meq Kcl) 1,000 mls @ 999 mls /hr IV ASDIRECTED [facility] Stop: 10/24/16 00:01 Last Admin: 10/23/16 23:20 Dose: 999 mls/hr Potassium Chloride/Sodium Chloride (1/2 Ns With 20 Meq Kcl) 1,000 mls @ 150 mls /hr IV ASDIRECTED [facility] Last Admin: 10/24/16 09:15 Dose: 150 mls/hr Potassium Chloride/Dextrose/Sod Cl (D5 1/2 Ns W/ 20 Meq/L Kcl) 1,000 mls @ 150 mls/hr IV ASDIRECTED [facility] Last Admin: 10/24/16 18:01 Dose: 150 mls/hr Magnesium Sulfate 2 gm/ Premix 50 mls @ 25 mls/hr IV Q2H [facility] Stop: 10/24/16 14:44 Last Admin: 10/24/16 14:54 Dose: 25 mls/hr Magnesium Sulfate 2 gm/ Premix 50 mls @ 25 mls/hr IV ONETIME ONE Stop: 10/24/16 19:25 Last Admin: 10/24/16 18:01 Dose: 25 mls/hr Potassium Chloride/Dextrose/Sod Cl (D5 Ns With 20 Meq Kcl) 1,000 mls @ 100 mls/ hr IV ASDIRECTED [facility] Last Admin: 10/25/16 22:11 Dose: 100 mls/hr Magnesium Sulfate 2 gm/ Premix 50 mls @ 25 mls/hr IV ONETIME ONE Stop: 10/26/16 08:35 Last Admin: 10/26/16 07:50 Dose: 25 mls/hr Dextrose/Sodium Chloride (Dextrose 5%-1/2 Ns) 1,000 mls @ 70 mls/hr IV ASDIRECTED [facility] Last Admin: 10/26/16 08:54 Dose: 70 mls/hr Dextrose/Sodium Chloride (Dextrose 5%-Normal Saline) 1,000 mls @ 200 mls/hr IV ASDIRECTED [facility] Last Admin: 10/28/16 07:55 Dose: 200 mls/hr Magnesium Sulfate 2 gm/ Premix 50 mls @ 25 mls/hr IV Q2H [facility] Stop: 10/27/16 13:44 Last Admin: 10/27/16 12:29 Dose: 25 mls/hr Magnesium Sulfate 2 gm/ Premix 50 mls @ 50 mls/hr IV ONETIME ONE Stop: 10/28/16 10:29 Last Admin: 10/28/16 09:54 Dose: 50 mls/hr Dextrose/Sodium Chloride (Dextrose 5%-Normal Saline) 1,000 mls @ 250 mls/hr IV ASDIRECTED [facility] Last Admin: 10/30/16 08:25 Dose: 250 mls/hr Magnesium Sulfate 2 gm/ Premix 50 mls @ 25 mls/hr IV ONETIME ONE Stop: 10/29/16 13:29 Last Admin: 10/29/16 11:58 Dose: 25 mls/hr Magnesium Sulfate 4 gm/ Premix 100 mls @ 25 mls/hr IV ONETIME ONE Stop: 10/30/16 13:59 Last Admin: 10/30/16 10:57 Dose: 25 mls/hr Ibuprofen (Motrin) 800 mg PO BID [facility] Last Admin: 10/29/16 08:54 Dose: Not Given Iopamidol (Isovue-300 (61%)) 100 ml IVPUSH ONETIME ONE Stop: 10/29/16 10:26 Last Admin: 10/29/16 11:12 Dose: 100 ml Ketorolac Tromethamine (Toradol) 30 mg IVPUSH Q6H [facility] Stop: 10/26/16 16:31 Last Admin: 10/26/16 15:55 Dose: 30 mg Lorazepam (Ativan) 1 mg PO ONETIME ONE Stop: 10/23/16 23:39 Last Admin: 10/24/16 00:13 Dose: 1 mg Lorazepam (Ativan) 2 mg IVPUSH Q4H PRN PRN Reason: Seizures Metoprolol Tartrate (Lopressor) 5 mg IVPUSH Q6H PRN PRN Reason: Tachycardia Morphine Sulfate (Morphine) 4 mg IVPUSH ONETIME ONE Stop: 10/25/16 15:01 Last Admin: 10/25/16 14:29 Dose: 4 mg Nicotine (Habitrol) 21 mg TRDERM ONETIME ONE Stop: 10/24/16 00:31 Last Admin: 10/24/16 00:37 Dose: 21 mg Ondansetron HCl (Zofran) 4 mg IVPUSH ONETIME ONE Stop: 10/23/16 20:51 Last Admin: 10/23/16 21:27 Dose: 4 mg Oxycodone HCl (Oxycontin) 10 mg PO Q12HR [facility] Last Admin: 10/28/16 08:34 Dose: 10 mg Pantoprazole Sodium (Protonix Iv) 40 mg IVPUSH Q12H [facility] Last Admin: 10/26/16 23:30 Dose: 40 mg Pantoprazole Sodium (Protonix Iv) 40 mg IVPUSH Q12H [facility] Last Admin: 10/27/16 08:19 Dose: 40 mg Pantoprazole Sodium (Protonix) 40 mg PO DAILY@0700 [facility] Last Admin: 10/28/16 07:15 Dose: 40 mg Pneumococcal Polyvalent Vaccine (Pneumovax 23) 0.5 ml IM .ONCE ONE Stop: 10/24/16 08:13 Potassium Chloride (Klor-Con M20) 40 meq PO ONETIME ONE Stop: 10/27/16 08:01 Last Admin: 10/27/16 08:18 Dose: 40 meq Potassium Chloride (Klor-Con M20) 40 meq PO Q4H [facility] Stop: 10/28/16 13:31 Last Admin: 10/28/16 13:11 Dose: 40 meq - Exam General: Alert, Oriented, Cooperative, No Acute Distress HEENT: Pupils Equal, Pupils Reactive, EOMI, Mucous Membr. Moist/[place]. No: Scleral Icterus Neck: Supple, Trachea Midline, No JVD, No Thyromegaly Lungs: Clear to Auscultation, Normal Respiratory Effort Cardiovascular: Regular Rate, Regular Rhythm GI/Abdominal Exam: Normal Bowel Sounds, Soft, Non-Tender, No Organomegaly, No Distention, No Abnormal Bruit, No Mass, Pelvis Stable (Male) Exam: Deferred Back Exam: Normal Inspection, Decreased Range of Motion Extremities: Normal Inspection, Normal Range of Motion, Non-Tender, No Pedal Edema, Normal Capillary Refill Peripheral Pulses: 3+: Posterior Tibial (L), Posterior Tibial (R), Dorsalis Pedis (L), Dorsalis Pedis (R) Skin: Warm, Dry, Intact Neurological: No New Focal Deficit Psy/Mental Status: Alert, Normal Affect, Normal Mood - Problem List Review Problem List Initiated/Reviewed/Updated: Yes - My Orders Last 24 Hours: My Active Orders 10/30/16 Breakfast Full Liquid Diet [DIET] - Plan Plan:: Impression: Acute: Alcoholic Pancreatitis - Likely resolved with CRP of 0.4 - Drinks heavy ETOH - CT without findings of pancreatitis, fatty infiltration within liver noted - Elevated lipase and fatty liver are chronic due to alcohol abuse - Counseled on quitting ETOH; SA consulted - As CT without findings of pancreatitis will advance to clear liquid diet - Will d/c IVF - Discussed with patient switching him oral pain meds and will d/c dilaudid Resolved: Alcohol Withdrawal Symptoms - Zero VISHNU level on admission - Has family history of alcoholism - CIWA score is improved, DC librium - Continue CIWA protocol - SA has been consulted - Psych consulted - Withdrawal is completed; SW working with for placement, is committed Chronic: Hypertension--start lisinopril History of concussions ETOH Abuse Polysubstance abuse, no UDS done on this admission LE Fracture - metatarsal - He was on leg cast and now WBAT in CAM boot at all times when up - No pain in his foot Plan: He remains clinically stable He is tolerating full liquid diet; advance diet as tolerated Psych consult with Dr. Upton with medication recommendations, see orders Substance abuse consulted, see notes Routine AM Labs DVT/GI prophylaxis CM/LENA for d/c planning Patient is full code Patient is ready for d/c in am if able to tolerate regular non-greasy/non-fatty diet LOS likely > 96 hrs due to slow response to treatment
[2016-10-30] MEDS: Thiamine 100 MG Tab PO SCH (20:38)
[2016-10-30] MEDS: Nicotine 21 MG/24 Hr Patch TRDERM SCH (20:39)
[2016-10-30] MEDS: QUEtiapine 25 MG Tab PO SCH (20:39)
[2016-10-31] MEDS: Ketorolac 30 MG/ML SDV IVPUSH SCH (03:33)
[2016-10-31] MEDS: hydrALAZINE 20 MG/ML SDV IVPUSH PRN (03:41)
[2016-10-31] MEDS: Pantoprazole 40 MG Tab.CR PO SCH ×2 (06:47→17:22)
--- NOTE | 2016-10-31 08:53 | PCM.PN ---
- General Info Date of Service: 10/31/16 Admission Dx/Problem (Free Text): Admission Diagnosis/Problem Admission Diagnosis/Problem Pancreatitis--chronic; alcohol withdrawl/ addiction Functional Status: Reports: Tolerating Diet, Ambulating, Urinating - Review of Systems General: Reports: No Symptoms HEENT: Reports: No Symptoms Pulmonary: Reports: No Symptoms Cardiovascular: Reports: No Symptoms Gastrointestinal: Reports: Abdominal Pain (chronic), Other (tolerating diet). Denies: Diarrhea, Nausea, Vomiting Genitourinary: Reports: No Symptoms Musculoskeletal: Reports: No Symptoms Skin: Reports: No Symptoms Neurological: Reports: No Symptoms Psychiatric: Reports: No Symptoms. Denies: Confusion, Cravings - Patient Data Vitals - Most Recent: Last Vital Signs Temp 98.8 F 10/31/16 03:17 Pulse 51 L 10/31/16 03:17 Resp 14 10/31/16 03:17 BP 158/96 H 10/31/16 03:17 Pulse Ox 100 10/31/16 03:17 Weight - Most Recent: 146 lb 8 oz I&O - Last 24 Hours: Intake & Output 10/30/16 10/31/16 10/31/16 22:59 06:59 14:59 Intake Total 960 175 Output Total 900 Balance 60 175 Lab Results Last 24 Hours: Laboratory Results - last 24 hr 10/30/16 10/30/16 Range/Units 09:00 09:00 Sodium 138 (136-145) mEq/L Potassium 3.9 (3.5-5.1) mEq/L Chloride 108 H (98-107) mEq/L Carbon Dioxide 22 (21-32) mEq/L Anion Gap 11.9 (5-15) BUN 6 L (7-18) mg/dL Creatinine 0.9 (0.7-1.3) mg/dL Est Cr Clr Drug Dosing 106.48 mL/min Estimated GFR (MDRD) > 60 (>60) mL/min BUN/Creatinine Ratio 6.7 L (14-18) Glucose 114 H (74-106) mg/dL Calcium 8.7 (8.5-10.1) mg/dL Magnesium 1.4 L (1.8-2.4) mg/dl C-Reactive Protein 0.4 (<1.0) mg/dL Med Orders - Current: Current Medications Docusate Sodium (Colace) 100 mg PO DAILY PRN PRN Reason: Constipation Last Admin: 10/27/16 02:40 Dose: 100 mg Fluoxetine HCl (Prozac) 20 mg PO DAILY [facility] Last Admin: 10/30/16 08:44 Dose: 20 mg Folic Acid (Folic Acid) 1 mg PO DAILY [facility] Last Admin: 10/30/16 08:44 Dose: 1 mg Hydralazine HCl (Apresoline) 20 mg IVPUSH Q4H PRN PRN Reason: Hypertension Last Admin: 10/31/16 03:41 Dose: 20 mg Lisinopril (Prinivil) 10 mg PO DAILY [facility] Last Admin: 10/30/16 08:44 Dose: 10 mg Magnesium Sulfate (Pharmacy To Dose - Magnesium Replacement) 0 dose .XX ASDIRECTED PRN PRN Reason: RX TO WATCH MAG LEVELS Metoprolol Tartrate (Lopressor) 5 mg IVPUSH Q4H PRN PRN Reason: Tachycardia Nicotine (Habitrol) 21 mg TRDERM 2100 [facility] Last Admin: 10/30/16 20:39 Dose: 21 mg Ondansetron HCl (Zofran) 4 mg IVPUSH Q4H PRN PRN Reason: Nausea/Vomiting Last Admin: 10/27/16 04:25 Dose: 4 mg Oxycodone HCl (Oxycodone) 5 mg PO Q4H PRN PRN Reason: Pain (moderate 4-6) Pantoprazole Sodium (Protonix) 40 mg PO BIDAC [facility] Last Admin: 10/31/16 06:47 Dose: 40 mg Potassium Chloride (Pharmacy To Dose - Potassium Replacement) 0 dose .XX ASDIRECTED PRN PRN Reason: RX TO WATCH K LEVELS Quetiapine Fumarate (Seroquel) 50 mg PO BEDTIME [facility] Last Admin: 10/30/16 20:39 Dose: 50 mg Senna/Docusate Sodium (Senna Plus) 1 tab PO DAILY PRN PRN Reason: Constipation Last Admin: 10/27/16 02:40 Dose: 1 tab Sodium Chloride (Saline Flush) 10 ml FLUSH ONETIME PRN PRN Reason: IV FLUSH Last Admin: 10/29/16 11:12 Dose: 10 ml Thiamine HCl (Vitamin B-1) 100 mg PO BEDTIME [facility] Last Admin: 10/30/16 20:38 Dose: 100 mg Topiramate (Topamax) 25 mg PO BID [facility] Stop: 11/02/16 21:01 Last Admin: 10/30/16 20:39 Dose: 25 mg Topiramate (Topamax) 50 mg PO BID [facility] Discontinued Medications Hydrocodone Bitart/Acetaminophen (Byron 325-5 Mg) 1 tab PO Q4H PRN PRN Reason: Pain/Fever Last Admin: 10/28/16 01:25 Dose: 1 tab Bumetanide (Bumex) 0.5 mg IVPUSH ONETIME ONE Stop: 10/26/16 16:37 Last Admin: 10/26/16 16:42 Dose: 0.5 mg Chlordiazepoxide HCl (Librium) 25 mg PO BID [facility] Last Admin: 10/25/16 20:41 Dose: 25 mg Chlordiazepoxide HCl (Librium) 25 mg PO TID [facility] Last Admin: 10/28/16 08:37 Dose: 25 mg Clonidine HCl (Catapres) 0.1 mg PO BID [facility] Last Admin: 10/30/16 08:44 Dose: 0.1 mg Diatrizoate Meglum/Diatrizoate Sod (Gastrografin 37%) 120 ml PO ONETIME ONE Stop: 10/29/16 10:26 Last Admin: 10/29/16 11:12 Dose: 90 ml Enoxaparin Sodium (Lovenox) 40 mg SUBCUT DAILY [facility] Last Admin: 10/26/16 08:53 Dose: 40 mg Hydralazine HCl (Apresoline) 20 mg IVPUSH ONETIME ONE Stop: 10/26/16 05:48 Last Admin: 10/26/16 05:55 Dose: 20 mg Hydralazine HCl (Apresoline) 20 mg IVPUSH Q6H PRN PRN Reason: Hypertension Hydromorphone HCl (Dilaudid) 0.5 mg IVPUSH ONETIME ONE Stop: 10/23/16 20:51 Last Admin: 10/23/16 21:26 Dose: 0.5 mg Hydromorphone HCl (Dilaudid) 0.5 mg [facility]USH [facility] Stop: 10/23/16 22:30 Last Admin: 10/23/16 22:33 Dose: 0.5 mg Hydromorphone HCl (Dilaudid) 1 mg IVPUSH Q4H PRN PRN Reason: Pain Last Admin: 10/25/16 07:42 Dose: 1 mg Hydromorphone HCl (Dilaudid) 2 mg IVPUSH Q4H PRN PRN Reason: Pain Last Admin: 10/26/16 00:36 Dose: 2 mg Hydromorphone HCl (Dilaudid) 1 mg IVPUSH ONETIME ONE Stop: 10/26/16 04:48 Last Admin: 10/26/16 04:57 Dose: 1 mg Hydromorphone HCl (Dilaudid) 1 mg IVPUSH Q6H PRN PRN Reason: Pain Last Admin: 10/28/16 07:26 Dose: 1 mg Hydromorphone HCl (Dilaudid) 0.5 mg IVPUSH Q6H PRN PRN Reason: Pain (moderate 4-6) Last Admin: 10/29/16 23:10 Dose: 0.5 mg Hydromorphone HCl (Dilaudid) 1 mg IVPUSH Q6H PRN PRN Reason: Pain (severe 7-10) Last Admin: 10/30/16 17:10 Dose: 1 mg Sodium Chloride (Normal Saline) 1,000 mls @ 999 mls/hr IV ONETIME ONE Stop: 10/23/16 22:16 Last Admin: 10/23/16 21:25 Dose: 999 mls/hr Magnesium Sulfate 2 gm/ Premix 50 mls @ 25 mls/hr IV ONETIME ONE Stop: 10/24/16 00:38 Last Admin: 10/23/16 23:20 Dose: 25 mls/hr Potassium Chloride/Sodium Chloride (1/2 Ns With 20 Meq Kcl) 1,000 mls @ 999 mls /hr IV ASDIRECTED [facility] Stop: 10/24/16 00:01 Last Admin: 10/23/16 23:20 Dose: 999 mls/hr Potassium Chloride/Sodium Chloride (1/2 Ns With 20 Meq Kcl) 1,000 mls @ 150 mls /hr IV ASDIRECTED [facility] Last Admin: 10/24/16 09:15 Dose: 150 mls/hr Potassium Chloride/Dextrose/Sod Cl (D5 1/2 Ns W/ 20 Meq/L Kcl) 1,000 mls @ 150 mls/hr IV ASDIRECTED [facility] Last Admin: 10/24/16 18:01 Dose: 150 mls/hr Magnesium Sulfate 2 gm/ Premix 50 mls @ 25 mls/hr IV Q2H [facility] Stop: 10/24/16 14:44 Last Admin: 10/24/16 14:54 Dose: 25 mls/hr Magnesium Sulfate 2 gm/ Premix 50 mls @ 25 mls/hr IV ONETIME ONE Stop: 10/24/16 19:25 Last Admin: 10/24/16 18:01 Dose: 25 mls/hr Potassium Chloride/Dextrose/Sod Cl (D5 Ns With 20 Meq Kcl) 1,000 mls @ 100 mls/ hr IV ASDIRECTED [facility] Last Admin: 10/25/16 22:11 Dose: 100 mls/hr Magnesium Sulfate 2 gm/ Premix 50 mls @ 25 mls/hr IV ONETIME ONE Stop: 10/26/16 08:35 Last Admin: 10/26/16 07:50 Dose: 25 mls/hr Dextrose/Sodium Chloride (Dextrose 5%-1/2 Ns) 1,000 mls @ [facility] Last Admin: 10/26/16 08:54 Dose: 70 mls/hr Dextrose/Sodium Chloride (Dextrose 5%-Normal Saline) 1,000 mls @ 200 mls/hr IV ASDIRECTED [facility] Last Admin: 10/28/16 07:55 Dose: 200 mls/hr Magnesium Sulfate 2 gm/ Premix 50 mls @ 25 mls/hr IV Q2H [facility] Stop: 10/27/16 13:44 Last Admin: 10/27/16 12:29 Dose: 25 mls/hr Magnesium Sulfate 2 gm/ Premix 50 mls @ 50 mls/hr IV ONETIME ONE Stop: 10/28/16 10:29 Last Admin: 10/28/16 09:54 Dose: 50 mls/hr Dextrose/Sodium Chloride (Dextrose 5%-Normal Saline) 1,000 mls @ 250 mls/hr IV ASDIRECTED [facility] Last Admin: 10/30/16 08:25 Dose: 250 mls/hr Magnesium Sulfate 2 gm/ Premix 50 mls @ 25 mls/hr IV ONETIME ONE Stop: 10/29/16 13:29 Last Admin: 10/29/16 11:58 Dose: 25 mls/hr Magnesium Sulfate 4 gm/ Premix 100 mls @ 25 mls/hr IV ONETIME ONE Stop: 10/30/16 13:59 Last Admin: 10/30/16 10:57 Dose: 25 mls/hr Ibuprofen (Motrin) 800 mg PO BID [facility] Last Admin: 10/29/16 08:54 Dose: Not Given Iopamidol (Isovue-300 (61%)) 100 ml IVPUSH ONETIME ONE Stop: 10/29/16 10:26 Last Admin: 10/29/16 11:12 Dose: 100 ml Ketorolac Tromethamine (Toradol) 30 mg IVPUSH Q6H [facility] Stop: 10/26/16 16:31 Last Admin: 10/26/16 15:55 Dose: 30 mg Ketorolac Tromethamine (Toradol) 30 mg IVPUSH Q8H [facility] Stop: 10/31/16 04:31 Last Admin: 10/31/16 03:33 Dose: 30 mg Lorazepam (Ativan) 0 mg IVPUSH ASDIRECTED PRN; Protocol PRN Reason: Withdrawal Symptoms Last Admin: 10/29/16 08:51 Dose: 1 mg Lorazepam (Ativan) 1 mg PO ONETIME ONE Stop: 10/23/16 23:39 Last Admin: 10/24/16 00:13 Dose: 1 mg Lorazepam (Ativan) 2 mg IVPUSH Q4H PRN PRN Reason: Seizures Metoprolol Tartrate (Lopressor) 5 mg IVPUSH Q6H PRN PRN Reason: Tachycardia Morphine Sulfate (Morphine) 4 mg IVPUSH ONETIME ONE Stop: 10/25/16 15:01 Last Admin: 10/25/16 14:29 Dose: 4 mg Nicotine (Habitrol) 21 mg TRDERM ONETIME ONE Stop: 10/24/16 00:31 Last Admin: 10/24/16 00:37 Dose: 21 mg Ondansetron HCl (Zofran) 4 mg IVPUSH ONETIME ONE Stop: 10/23/16 20:51 Last Admin: 10/23/16 21:27 Dose: 4 mg Oxycodone HCl (Oxycontin) 10 mg PO Q12HR [facility] Last Admin: 10/28/16 08:34 Dose: 10 mg Pantoprazole Sodium (Protonix Iv) 40 mg IVPUSH Q12H [facility] Last Admin: 10/26/16 23:30 Dose: 40 mg Pantoprazole Sodium (Protonix Iv) 40 mg IVPUSH Q12H [facility] Last Admin: 10/27/16 08:19 Dose: 40 mg Pantoprazole Sodium (Protonix) 40 mg PO DAILY@0700 [facility] Last Admin: 10/28/16 07:15 Dose: 40 mg Pneumococcal Polyvalent Vaccine (Pneumovax 23) 0.5 ml IM .ONCE ONE Stop: 10/24/16 08:13 Potassium Chloride (Klor-Con M20) 40 meq PO ONETIME ONE Stop: 10/27/16 08:01 Last Admin: 10/27/16 08:18 Dose: 40 meq Potassium Chloride (Klor-Con M20) 40 meq PO Q4H [facility] Stop: 10/28/16 13:31 Last Admin: 10/28/16 13:11 Dose: 40 meq - Exam Quality Assessment: DVT Prophylaxis General: Alert, Oriented, Cooperative, No Acute Distress HEENT: Pupils Equal, EOMI, Mucous Membr. Moist/[place] Neck: Supple Lungs: Clear to Auscultation, Normal Respiratory Effort Cardiovascular: Regular Rate, Regular Rhythm (Male) Exam: Deferred Back Exam: Normal Inspection Extremities: Normal Inspection, No Pedal Edema Neurological: No New Focal Deficit Psy/Mental Status: Alert, Normal Affect, Normal Mood - Problem List & Annotations (1) Acute alcoholic pancreatitis SNOMED Code(s): 189700604 Code(s): K85.2 - ALCOHOL INDUCED ACUTE PANCREATITIS * DO NOT USE * Status: Chronic Priority: Medium Current Visit: Yes Qualifiers: Acute pancreatitis complication: no infection or necrosis Qualified Code(s) : K85.20 - Alcohol induced acute pancreatitis without necrosis or infection (2) Hypomagnesemia SNOMED Code(s): 705275014 Code(s): E83.42 - HYPOMAGNESEMIA Status: Acute Priority: High Current Visit: Yes (3) Hypokalemia SNOMED Code(s): 36004878 Code(s): E87.6 - HYPOKALEMIA Status: Resolved Priority: High Current Visit: Yes (4) Alcohol abuse SNOMED Code(s): 98854483 Code(s): F10.10 - ALCOHOL ABUSE, UNCOMPLICATED Status: Chronic Priority: High Current Visit: Yes (5) Alcohol intoxication SNOMED Code(s): 82096355 Code(s): F10.129 - ALCOHOL ABUSE WITH INTOXICATION, UNSPECIFIED Status: Resolved Priority: High Current Visit: Yes (6) Injury of lower leg SNOMED Code(s): 652122545 Code(s): S89.90XA - UNSPECIFIED INJURY OF UNSPECIFIED LOWER LEG, INIT ENCNTR Status: Acute Priority: Medium Current Visit: No Onset Date: 10/12/13 Annotation/Comment:: blunt trauma to left leg and ankle bone - Problem List Review Problem List Initiated/Reviewed/Updated: Yes - Plan Plan:: Impression: Acute: Alcoholic Pancreatitis---likely chronic pancreatitis - Likely resolved with CRP of 0.4 - Drinks heavy ETOH - CT without findings of pancreatitis, fatty infiltration within liver noted - Elevated lipase and fatty liver are chronic due to alcohol abuse - Counseled on quitting ETOH; SA consulted - As CT without findings of pancreatitis will advance to clear liquid diet - Will d/c IVF - Discussed with patient switching him oral pain meds and will d/c dilaudid Resolved: Alcohol Withdrawal Symptoms - Zero VISHNU level on admission - Has family history of alcoholism - CIWA score is improved, DC librium - Continue CIWA protocol - SA has been consulted - Psych consulted - Withdrawal is completed; SW working with for placement, is committed Chronic: Hypertension--start lisinopril History of concussions ETOH Abuse Polysubstance abuse, no UDS done on this admission LE Fracture - metatarsal - He was on leg cast and now WBAT in CAM boot at all times when up - No pain in his foot Plan: He remains clinically stable He is tolerating diet Psych consult with Dr. Upton with medication recommendations, see orders Substance abuse consulted, see notes Routine AM Labs DVT/GI prophylaxis CM/SW for d/c planning Patient is full code Patient is ready for d/c in am if able to tolerate regular non-greasy/non-fatty diet-----if tolerating diet will be medically stable; then will be pending placement with commitment to rehab facility. LOS likely > 96 hrs due to slow response to treatment
[2016-10-31] MEDS: FLUoxetine 20 MG Cap PO SCH (09:02)
[2016-10-31] MEDS: Topiramate 25 MG Tab PO SCH ×2 (09:02→21:00)
[2016-10-31] MEDS: Folic Acid 1 MG Tab PO SCH (09:02)
[2016-10-31] MEDS: Lisinopril 10 MG Tab PO SCH (09:02)
[2016-10-31] MEDS: oxyCODONE 5 MG Tab PO PRN ×4 (09:15→23:48)
[2016-10-31] MEDS ORDERED: Lisinopril 10 MG Tab PO ONE (12:30)
--- NOTE | 2016-10-31 12:51 | PCM.DCSUM1 ---
Discharge Summary - Hospital Course Free Text/Narrative:: 36 year old male with history recurrent pancreatitis, alcoholic induced, presents with abdominal pain. He drinks daily; had a VISHNU on admission is 0.26. Currently states that he is taking narcotics for a right lower extremity fracture. He uses marijuana, hashish and ethanol. The abdominal pain has obscured for 3 days. It is associated with nausea, vomiting, as well as a decreased appetite; denies f/c/s. He is being admitted to OR telemetry for acute pancreatitis and alcohol withdrawal. Patient was monitored with CIWAA protocol with ativan librium, protocol; He was transferred to ICU bed for close monitoring for withdrawl symptoms. Medical detox was completed without incident, he was transferred out of ICU. Orthopedics , Dr. Musa was contacted re: right lower extremity fractures-- 3rd and 4th metatarsal fractures. Ortho Nurse, Geovany, did come down to floor, removed cast. Per Dr. Musa's instructions patient was placed in CAM boot, WBAT. He has done well with this and now has no pain to his foot. He is up and ambulatory in hallways. Lipase levels were followed, very slowly declined with IVF hydration. Pain was difficult to control and continued to have same pain level despite multiple trials of numerous pain medications and combinations. He was able to eat and drink, tolerate meals without n/v/d or worsening of pain. Psychiatry and Substance Abuse were consulted. Patient was committed for inpatient rehab. - Discharge Data Discharge Date: 11/03/16 (10/23/16) Discharge Disposition: DC/Tfer to Psych Hosp/Unit 65 Condition: Good - Discharge Diagnosis/Problem(s) (1) Acute alcoholic pancreatitis SNOMED Code(s): 086121076 ICD Code: K85.2 - ALCOHOL INDUCED ACUTE PANCREATITIS * DO NOT USE * Status : Resolved Priority: High Current Visit: Yes Qualifiers: Acute pancreatitis complication: no infection or necrosis Qualified Code(s) : K85.20 - Alcohol induced acute pancreatitis without necrosis or infection (2) Hypomagnesemia SNOMED Code(s): 198666477 ICD Code: E83.42 - HYPOMAGNESEMIA Status: Acute Priority: High Current Visit: Yes (3) Hypokalemia SNOMED Code(s): 68592221 ICD Code: E87.6 - HYPOKALEMIA Status: Resolved Priority: High Current Visit: Yes (4) Alcohol abuse SNOMED Code(s): 01705741 ICD Code: F10.10 - ALCOHOL ABUSE, UNCOMPLICATED Status: Chronic Priority : High Current Visit: Yes (5) Alcohol intoxication SNOMED Code(s): 29015886 ICD Code: F10.129 - ALCOHOL ABUSE WITH INTOXICATION, UNSPECIFIED Status: Resolved Priority: High Current Visit: Yes (6) Injury of lower leg SNOMED Code(s): 891900435 ICD Code: S89.90XA - UNSPECIFIED INJURY OF UNSPECIFIED LOWER LEG, INIT ENCNTR Status: Acute Priority: Medium Current Visit: No Onset Date: 08/20 Problem Details: blunt trauma to left leg and ankle bone - Patient Summary/Data Operative Procedure(s) Performed: None Complications: None Consults: Consultations 10/23/16 22:45 Consult to Case Management [CONS] Routine 10/23/16 22:48 Consult to Physician [CONS] Routine 10/27/16 07:16 Consult to Spiritual Care [CONS] Routine 10/27/16 11:00 Consult for Substance Abuse [CONS] Routine Consult to Physical Therapy [PT Evaluation and Treatment] [CONS] Routine Labs Pending at D/C: None Recommended Follow-up Testing/Procedures: Follow up with/establish with PCP upon discharge from rehab facility. Planned Operative Procedure(s) after DC: None Hospital Course: As above - Patient Instructions Diet: Usual Diet as Tolerated Activity: As Tolerated Driving: Do Not Drive Showering/Bathing: May Shower Notify Provider of: Fever, Increased Pain, Nausea and/or Vomiting - Discharge Plan Prescriptions/Med Rec: FLUoxetine [PROzac] 20 mg PO DAILY #30 cap Folic Acid 1 mg PO DAILY #30 tablet Lisinopril [Prinivil] 20 mg PO DAILY #30 tablet Magnesium Oxide 800 mg PO BID #60 tablet Pantoprazole [ProTONIX] 40 mg PO BIDAC #60 tab.cr QUEtiapine [SEROquel] 50 mg PO BEDTIME #60 tablet Thiamine [Vitamin B-1] 100 mg PO BEDTIME #30 tablet Topiramate [Topamax] 50 mg PO BID #60 tablet Home Medications: Home Meds FLUoxetine [PROzac] 20 mg PO DAILY #30 cap 11/03/16 [Rx] Folic Acid 1 mg PO DAILY #30 tablet 11/03/16 [Rx] Hydrocodone/Acetaminophen [Hydrocodon-Acetaminophen 5-325] 1 tab PO Q6H PRN #20 11/03/16 [Rx] Lisinopril [Prinivil] 20 mg PO DAILY #30 tablet 11/03/16 [Rx] Magnesium Oxide 800 mg PO BID #60 tablet 11/03/16 [Rx] Pantoprazole [ProTONIX] 40 mg PO BIDAC #60 tab.cr 11/03/16 [Rx] QUEtiapine [SEROquel] 50 mg PO BEDTIME #60 tablet 11/03/16 [Rx] Thiamine [Vitamin B-1] 100 mg PO BEDTIME #30 tablet 11/03/16 [Rx] Topiramate [Topamax] 50 mg PO BID #60 tablet 11/03/16 [Rx] Patient Handouts: Smoking Cessation, Tips for Success, [id number], Acute Pancreatitis, [id number], Alcohol Intoxication, [id number], Alcohol Abuse and Nutrition Forms: ED Department Discharge Referrals: PCP,None [Primary Care Provider] - - Discharge Summary/Plan Comment DC Time >30 min.: Yes (40 min) - General Info Date of Service: 11/03/16 Admission Dx/Problem (Free Text: Admission Diagnosis/Problem Admission Diagnosis/Problem Pancreatitis--chronic; alcohol withdrawl/ addiction Functional Status: Reports: Pain Controlled, Tolerating Diet, Ambulating, Urinating. Denies: New Symptoms - Review of Systems General: Reports: No Symptoms HEENT: Reports: No Symptoms Pulmonary: Reports: No Symptoms Cardiovascular: Reports: No Symptoms Gastrointestinal: Reports: Abdominal Pain. Denies: Diarrhea, Nausea, Vomiting Genitourinary: Reports: No Symptoms Musculoskeletal: Reports: No Symptoms Skin: Reports: No Symptoms Psychiatric: Reports: Cravings (tobacco) - Patient Data Vitals - Most Recent: Last Vital Signs Temp 99.7 F 10/31/16 08:56 Pulse 75 10/31/16 08:56 Resp 16 10/31/16 08:56 BP 122/75 10/31/16 09:02 Pulse Ox 98 10/31/16 08:56 Weight - Most Recent: 146 lb 8 oz I&O - Last 24 hours: Intake & Output 10/30/16 10/31/16 10/31/16 22:59 06:59 14:59 Intake Total 960 175 100 Output Total 900 Balance 60 175 100 Lab Results - Last 24 hrs: Laboratory Results - last 24 hr 10/31/16 Range/Units 08:20 Magnesium 1.7 L (1.8-2.4) mg/dl Med Orders - Current: Current Medications Docusate Sodium (Colace) 100 mg PO DAILY PRN PRN Reason: Constipation Last Admin: 10/27/16 02:40 Dose: 100 mg Fluoxetine HCl (Prozac) 20 mg PO DAILY [facility] Last Admin: 10/31/16 09:02 Dose: 20 mg Folic Acid (Folic Acid) 1 mg PO DAILY [facility] Last Admin: 10/31/16 09:02 Dose: 1 mg Hydralazine HCl (Apresoline) 20 mg IVPUSH Q4H PRN PRN Reason: Hypertension Last Admin: 10/31/16 03:41 Dose: 20 mg Lisinopril (Prinivil) 20 mg PO DAILY [facility] Magnesium Oxide (Magnesium Oxide) 400 mg PO BID [facility] Magnesium Sulfate (Pharmacy To Dose - Magnesium Replacement) 0 dose .XX ASDIRECTED PRN PRN Reason: RX TO WATCH MAG LEVELS Metoprolol Tartrate (Lopressor) 5 mg IVPUSH Q4H PRN PRN Reason: Tachycardia Nicotine (Habitrol) 21 mg TRDERM 2100 [facility] Last Admin: 10/30/16 20:39 Dose: 21 mg Ondansetron HCl (Zofran) 4 mg IVPUSH Q4H PRN PRN Reason: Nausea/Vomiting Last Admin: 10/27/16 04:25 Dose: 4 mg Oxycodone HCl (Oxycodone) 5 mg PO Q4H PRN PRN Reason: Pain (moderate 4-6) Last Admin: 10/31/16 09:15 Dose: 5 mg Pantoprazole Sodium (Protonix) 40 mg PO BIDAC [facility] Last Admin: 10/31/16 06:47 Dose: 40 mg Potassium Chloride (Pharmacy To Dose - Potassium Replacement) 0 dose .XX ASDIRECTED PRN PRN Reason: RX TO WATCH K LEVELS Quetiapine Fumarate (Seroquel) 50 mg PO BEDTIME [facility] Last Admin: 10/30/16 20:39 Dose: 50 mg Senna/Docusate Sodium (Senna Plus) 1 tab PO DAILY PRN PRN Reason: Constipation Last Admin: 10/27/16 02:40 Dose: 1 tab Sodium Chloride (Saline Flush) 10 ml FLUSH ONETIME PRN PRN Reason: IV FLUSH Last Admin: 10/29/16 11:12 Dose: 10 ml Sucralfate (Carafate) 1 gm PO QIDACANDBED [facility] Thiamine HCl (Vitamin B-1) 100 mg PO BEDTIME [facility] Last Admin: 10/30/16 20:38 Dose: 100 mg Topiramate (Topamax) 25 mg PO BID [facility] Stop: 11/02/16 21:01 Last Admin: 10/31/16 09:02 Dose: 25 mg Topiramate (Topamax) 50 mg PO BID [facility] Discontinued Medications Hydrocodone Bitart/Acetaminophen (Irving 325-5 Mg) 1 tab PO Q4H PRN PRN Reason: Pain/Fever Last Admin: 10/28/16 01:25 Dose: 1 tab Bumetanide (Bumex) 0.5 mg IVPUSH ONETIME ONE Stop: 10/26/16 16:37 Last Admin: 10/26/16 16:42 Dose: 0.5 mg Chlordiazepoxide HCl (Librium) 25 mg PO BID [facility] Last Admin: 10/25/16 20:41 Dose: 25 mg Chlordiazepoxide HCl (Librium) 25 mg PO TID [facility] Last Admin: 10/28/16 08:37 Dose: 25 mg Clonidine HCl (Catapres) 0.1 mg PO BID [facility] Last Admin: 10/30/16 08:44 Dose: 0.1 mg Diatrizoate Meglum/Diatrizoate Sod (Gastrografin 37%) 120 ml PO ONETIME ONE Stop: 10/29/16 10:26 Last Admin: 10/29/16 11:12 Dose: 90 ml Enoxaparin Sodium (Lovenox) 40 mg SUBCUT DAILY [facility] Last Admin: 10/26/16 08:53 Dose: 40 mg Hydralazine HCl (Apresoline) 20 mg IVPUSH ONETIME ONE Stop: 10/26/16 05:48 Last Admin: 10/26/16 05:55 Dose: 20 mg Hydralazine HCl (Apresoline) 20 mg IVPUSH Q6H PRN PRN Reason: Hypertension Hydromorphone HCl (Dilaudid) 0.5 mg IVPUSH ONETIME ONE Stop: 10/23/16 20:51 Last Admin: 10/23/16 21:26 Dose: 0.5 mg Hydromorphone HCl (Dilaudid) 0.5 mg IVPUSH STAT STA Stop: 10/23/16 22:30 Last Admin: 10/23/16 22:33 Dose: 0.5 mg Hydromorphone HCl (Dilaudid) 1 mg IVPUSH Q4H PRN PRN Reason: Pain Last Admin: 10/25/16 07:42 Dose: 1 mg Hydromorphone HCl (Dilaudid) 2 mg IVPUSH Q4H PRN PRN Reason: Pain Last Admin: 10/26/16 00:36 Dose: 2 mg Hydromorphone HCl (Dilaudid) 1 mg IVPUSH ONETIME ONE Stop: 10/26/16 04:48 Last Admin: 10/26/16 04:57 Dose: 1 mg Hydromorphone HCl (Dilaudid) 1 mg IVPUSH Q6H PRN PRN Reason: Pain Last Admin: 10/28/16 07:26 Dose: 1 mg Hydromorphone HCl (Dilaudid) 0.5 mg IVPUSH Q6H PRN PRN Reason: Pain (moderate 4-6) Last Admin: 10/29/16 23:10 Dose: 0.5 mg Hydromorphone HCl (Dilaudid) 1 mg IVPUSH Q6H PRN PRN Reason: Pain (severe 7-10) Last Admin: 10/30/16 17:10 Dose: 1 mg Sodium Chloride (Normal Saline) 1,000 mls @ 999 mls/hr IV ONETIME ONE Stop: 10/23/16 22:16 Last Admin: 10/23/16 21:25 Dose: 999 mls/hr Magnesium Sulfate 2 gm/ Premix 50 mls @ 25 mls/hr IV ONETIME ONE Stop: 10/24/16 00:38 Last Admin: 10/23/16 23:20 Dose: 25 mls/hr Potassium Chloride/Sodium Chloride (1/2 Ns With 20 Meq Kcl) 1,000 mls @ 999 mls /hr IV ASDIRECTED BART Stop: 10/24/16 00:01 Last Admin: 10/23/16 23:20 Dose: 999 mls/hr Potassium Chloride/Sodium Chloride (1/2 Ns With 20 Meq Kcl) 1,000 mls @ 150 mls /hr IV ASDIRECTED [facility] Last Admin: 10/24/16 09:15 Dose: 150 mls/hr Potassium Chloride/Dextrose/Sod Cl (D5 1/2 Ns W/ 20 Meq/L Kcl) 1,000 mls @ 150 mls/hr IV ASDIRECTED [facility] Last Admin: 10/24/16 18:01 Dose: 150 mls/hr Magnesium Sulfate 2 gm/ Premix 50 mls @ 25 mls/hr IV Q2H [facility] Stop: 10/24/16 14:44 Last Admin: 10/24/16 14:54 Dose: 25 mls/hr Magnesium Sulfate 2 gm/ Premix 50 mls @ 25 mls/hr IV ONETIME ONE Stop: 10/24/16 19:25 Last Admin: 10/24/16 18:01 Dose: 25 mls/hr Potassium Chloride/Dextrose/Sod Cl (D5 Ns With 20 Meq Kcl) 1,000 mls @ 100 mls/ hr IV ASDIRECTED [facility] Last Admin: 10/25/16 22:11 Dose: 100 mls/hr Magnesium Sulfate 2 gm/ Premix 50 mls @ 25 mls/hr IV ONETIME ONE Stop: 10/26/16 08:35 Last Admin: 10/26/16 07:50 Dose: 25 mls/hr Dextrose/Sodium Chloride (Dextrose 5%-1/2 Ns) 1,000 mls @ 70 mls/hr IV ASDIRECTED [facility] Last Admin: 10/26/16 08:54 Dose: 70 mls/hr Dextrose/Sodium Chloride (Dextrose 5%-Normal Saline) 1,000 mls @ 200 mls/hr IV ASDIRECTED [facility] Last Admin: 10/28/16 07:55 Dose: 200 mls/hr Magnesium Sulfate 2 gm/ Premix 50 mls @ 25 mls/hr IV Q2H [facility] Stop: 10/27/16 13:44 Last Admin: 10/27/16 12:29 Dose: 25 mls/hr Magnesium Sulfate 2 gm/ Premix 50 mls @ 50 mls/hr IV ONETIME ONE Stop: 10/28/16 10:29 Last Admin: 10/28/16 09:54 Dose: 50 mls/hr Dextrose/Sodium Chloride (Dextrose 5%-Normal Saline) 1,000 mls @ 250 mls/hr IV ASDIRECTED [facility] Last Admin: 10/30/16 08:25 Dose: 250 mls/hr Magnesium Sulfate 2 gm/ Premix 50 mls @ 25 mls/hr IV ONETIME ONE Stop: 10/29/16 13:29 Last Admin: 10/29/16 11:58 Dose: 25 mls/hr Magnesium Sulfate 4 gm/ Premix 100 mls @ 25 mls/hr IV ONETIME ONE Stop: 10/30/16 13:59 Last Admin: 10/30/16 10:57 Dose: 25 mls/hr Ibuprofen (Motrin) 800 mg PO BID [facility] Last Admin: 10/29/16 08:54 Dose: Not Given Iopamidol (Isovue-300 (61%)) 100 ml IVPUSH ONETIME ONE Stop: 10/29/16 10:26 Last Admin: 10/29/16 11:12 Dose: 100 ml Ketorolac Tromethamine (Toradol) 30 mg IVPUSH Q6H [facility] Stop: 10/26/16 16:31 Last Admin: 10/26/16 15:55 Dose: 30 mg Ketorolac Tromethamine (Toradol) 30 mg IVPUSH Q8H [facility] Stop: 10/31/16 04:31 Last Admin: 10/31/16 03:33 Dose: 30 mg Lisinopril (Prinivil) 10 mg PO DAILY [facility] Last Admin: 10/31/16 09:02 Dose: 10 mg Lisinopril (Prinivil) 10 mg PO ONETIME ONE Stop: 10/31/16 12:31 Lorazepam (Ativan) 0 mg IVPUSH ASDIRECTED PRN; Protocol PRN Reason: Withdrawal Symptoms Last Admin: 10/29/16 08:51 Dose: 1 mg Lorazepam (Ativan) 1 mg PO ONETIME ONE Stop: 10/23/16 23:39 Last Admin: 10/24/16 00:13 Dose: 1 mg Lorazepam (Ativan) 2 mg IVPUSH Q4H PRN PRN Reason: Seizures Metoprolol Tartrate (Lopressor) 5 mg IVPUSH Q6H PRN PRN Reason: Tachycardia Morphine Sulfate (Morphine) 4 mg IVPUSH ONETIME ONE Stop: 10/25/16 15:01 Last Admin: 10/25/16 14:29 Dose: 4 mg Nicotine (Habitrol) 21 mg TRDERM ONETIME ONE Stop: 10/24/16 00:31 Last Admin: 10/24/16 00:37 Dose: 21 mg Ondansetron HCl (Zofran) 4 mg IVPUSH ONETIME ONE Stop: 10/23/16 20:51 Last Admin: 10/23/16 21:27 Dose: 4 mg Oxycodone HCl (Oxycontin) 10 mg PO Q12HR [facility] Last Admin: 10/28/16 08:34 Dose: 10 mg Pantoprazole Sodium (Protonix Iv) 40 mg IVPUSH Q12H [facility] Last Admin: 10/26/16 23:30 Dose: 40 mg Pantoprazole Sodium (Protonix Iv) 40 mg IVPUSH Q12H [facility] Last Admin: 10/27/16 08:19 Dose: 40 mg Pantoprazole Sodium (Protonix) 40 mg PO DAILY@0700 [facility] Last Admin: 10/28/16 07:15 Dose: 40 mg Pneumococcal Polyvalent Vaccine (Pneumovax 23) 0.5 ml IM .ONCE ONE Stop: 10/24/16 08:13 Potassium Chloride (Klor-Con M20) 40 meq PO ONETIME ONE Stop: 10/27/16 08:01 Last Admin: 10/27/16 08:18 Dose: 40 meq Potassium Chloride (Klor-Con M20) 40 meq PO Q4H [facility] Stop: 10/28/16 13:31 Last Admin: 10/28/16 13:11 Dose: 40 meq - Exam Quality Assessment: Reports: DVT Prophylaxis General: Reports: Alert, Oriented, Cooperative, No Acute Distress HEENT: Reports: Pupils Equal, Pupils Reactive, EOMI, Mucous Membr. Moist/[place] Neck: Reports: Supple Lungs: Reports: Clear to Auscultation, Normal Respiratory Effort Cardiovascular: Reports: Regular Rate, Regular Rhythm GI/Abdominal Exam: Normal Bowel Sounds, Soft, Tender (epigastrium, RUQ, LUQ- soft with palpation) (Male) Exam: Deferred Rectal (Males) Exam: Deferred Extremities: Normal Inspection, No Pedal Edema Neurological: Reports: No New Focal Deficit Psy/Mental Status: Reports: Alert, Normal Affect, Normal Mood *Q Meaningful Use (DIS) - VTE *Q VTE Criteria *Q: - Stroke *Q Stroke Criteria *Q: - AMI *Q AMI Criteria *Q:
[2016-10-31] MEDS: Magnesium Oxide 400 MG Tab PO SCH ×2 (13:53→21:00)
[2016-10-31] MEDS: Sucralfate 1 GM Tab PO SCH ×3 (13:53→21:00)
[2016-10-31] MEDS: Nicotine 21 MG/24 Hr Patch TRDERM SCH (20:59)
[2016-10-31] MEDS: QUEtiapine 25 MG Tab PO SCH (21:00)
[2016-10-31] MEDS: Thiamine 100 MG Tab PO SCH (21:00)
--- NOTE | 2016-11-01 01:33 | PCM.PN ---
- General Info Date of Service: 11/01/16 Admission Dx/Problem (Free Text): Admission Diagnosis/Problem Admission Diagnosis/Problem Pancreatitis--chronic; alcohol withdrawl/ addiction Subjective Update: Follow Up Functional Status: Reports: Pain Controlled, Tolerating Diet, Ambulating, Urinating. Denies: New Symptoms - Review of Systems General: Denies: Fever, Weakness, Fatigue, Malaise, Chills HEENT: Reports: No Symptoms Pulmonary: Denies: Shortness of Breath Cardiovascular: Denies: Chest Pain Gastrointestinal: Reports: Abdominal Pain. Denies: Nausea, Vomiting Genitourinary: Reports: No Symptoms Musculoskeletal: Reports: No Symptoms Skin: Denies: Jaundice, Pruritis, Rash Neurological: Denies: Confusion, Difficulty Walking, Weakness, Gait Disturbance Psychiatric: Denies: Depression, Anxiety, Agitation, Hallucinations Systems Review Comment:: No overnight or acute issues. He has no new complaints. His Mg still low at 1.6. Lipase yesterday shows 868. He is now tolerating regular meal. - Patient Data Vitals - Most Recent: Last Vital Signs Temp 37.2 C 10/31/16 20:59 Pulse 69 10/31/16 20:59 Resp 14 10/31/16 20:59 BP 133/90 10/31/16 20:59 Pulse Ox 100 10/31/16 20:59 Weight - Most Recent: 66.451 kg I&O - Last 24 Hours: Intake & Output 10/31/16 10/31/16 11/01/16 14:59 22:59 06:59 Intake Total 100 620 Output Total 950 Balance 100 -330 Lab Results Last 24 Hours: Laboratory Results - last 24 hr 10/31/16 10/31/16 Range/Units 08:20 08:20 Magnesium 1.7 L (1.8-2.4) mg/dl Lipase 868 H (73-393) U/L Med Orders - Current: Current Medications Docusate Sodium (Colace) 100 mg PO DAILY PRN PRN Reason: Constipation Last Admin: 10/27/16 02:40 Dose: 100 mg Fluoxetine HCl (Prozac) 20 mg PO DAILY BART Last Admin: 10/31/16 09:02 Dose: 20 mg Folic Acid (Folic Acid) 1 mg PO DAILY BART Last Admin: 10/31/16 09:02 Dose: 1 mg Hydralazine HCl (Apresoline) 20 mg IVPUSH Q4H PRN PRN Reason: Hypertension Last Admin: 10/31/16 03:41 Dose: 20 mg Lisinopril (Prinivil) 20 mg PO DAILY [facility] Magnesium Oxide (Magnesium Oxide) 400 mg PO BID [facility] Last Admin: 10/31/16 21:00 Dose: 400 mg Magnesium Sulfate (Pharmacy To Dose - Magnesium Replacement) 0 dose .XX ASDIRECTED PRN PRN Reason: RX TO WATCH MAG LEVELS Metoprolol Tartrate (Lopressor) 5 mg IVPUSH Q4H PRN PRN Reason: Tachycardia Nicotine (Habitrol) 21 mg TRDERM 2100 [facility] Last Admin: 10/31/16 20:59 Dose: Not Given Ondansetron HCl (Zofran) 4 mg IVPUSH Q4H PRN PRN Reason: Nausea/Vomiting Last Admin: 10/27/16 04:25 Dose: 4 mg Oxycodone HCl (Oxycodone) 5 mg PO Q4H PRN PRN Reason: Pain (moderate 4-6) Last Admin: 10/31/16 23:48 Dose: 5 mg [facility] Last Admin: 10/31/16 17:22 Dose: 40 mg Potassium Chloride (Pharmacy To Dose - Potassium Replacement) 0 dose .XX ASDIRECTED PRN PRN Reason: RX TO WATCH K LEVELS Quetiapine Fumarate (Seroquel) 50 mg PO BEDTIME [facility] Last Admin: 10/31/16 21:00 Dose: 50 mg Senna/Docusate Sodium (Senna Plus) 1 tab PO DAILY PRN PRN Reason: Constipation Last Admin: 10/27/16 02:40 Dose: 1 tab Sodium Chloride (Saline Flush) 10 ml FLUSH ONETIME PRN PRN Reason: IV FLUSH Last Admin: 10/29/16 11:12 Dose: 10 ml Sucralfate (Carafate) 1 gm PO QIDACANDBED [facility] Last Admin: 10/31/16 21:00 Dose: 1 gm Thiamine HCl (Vitamin B-1) 100 mg PO BEDTIME [facility] Last Admin: 10/31/16 21:00 Dose: 100 mg Topiramate (Topamax) 25 mg PO BID [facility] Stop: 11/02/16 21:01 Last Admin: 10/31/16 21:00 Dose: 25 mg Topiramate (Topamax) 50 mg PO BID [facility] Discontinued Medications Hydrocodone Bitart/Acetaminophen ([place] 325-5 Mg) 1 tab PO Q4H PRN PRN Reason: Pain/Fever Last Admin: 10/28/16 01:25 Dose: 1 tab Bumetanide (Bumex) 0.5 mg IVPUSH ONETIME ONE Stop: 10/26/16 16:37 Last Admin: 10/26/16 16:42 Dose: 0.5 mg Chlordiazepoxide HCl (Librium) 25 mg PO BID [facility] Last Admin: 10/25/16 20:41 Dose: 25 mg Chlordiazepoxide HCl (Librium) 25 mg PO TID [facility] Last Admin: 10/28/16 08:37 Dose: 25 mg Clonidine HCl (Catapres) 0.1 mg PO BID [facility] Last Admin: 10/30/16 08:44 Dose: 0.1 mg Diatrizoate Meglum/Diatrizoate Sod (Gastrografin 37%) 120 ml PO ONETIME ONE Stop: 10/29/16 10:26 Last Admin: 10/29/16 11:12 Dose: 90 ml Enoxaparin Sodium (Lovenox) 40 mg SUBCUT DAILY [facility] Last Admin: 10/26/16 08:53 Dose: 40 mg Hydralazine HCl (Apresoline) 20 mg IVPUSH ONETIME ONE Stop: 10/26/16 05:48 Last Admin: 10/26/16 05:55 Dose: 20 mg Hydralazine HCl (Apresoline) 20 mg IVPUSH Q6H PRN PRN Reason: Hypertension Hydromorphone HCl (Dilaudid) 0.5 mg IVPUSH ONETIME ONE Stop: 10/23/16 20:51 Last Admin: 10/23/16 21:26 Dose: 0.5 mg Hydromorphone HCl (Dilaudid) 0.5 mg IVPUSH STAT STA Stop: 10/23/16 22:30 Last Admin: 10/23/16 22:33 Dose: 0.5 mg Hydromorphone HCl (Dilaudid) 1 mg IVPUSH Q4H PRN PRN Reason: Pain Last Admin: 10/25/16 07:42 Dose: 1 mg Hydromorphone HCl (Dilaudid) 2 mg IVPUSH Q4H PRN PRN Reason: Pain Last Admin: 10/26/16 00:36 Dose: 2 mg Hydromorphone HCl (Dilaudid) 1 mg IVPUSH ONETIME ONE Stop: 10/26/16 04:48 Last Admin: 10/26/16 04:57 Dose: 1 mg Hydromorphone HCl (Dilaudid) 1 mg IVPUSH Q6H PRN PRN Reason: Pain Last Admin: 10/28/16 07:26 Dose: 1 mg Hydromorphone HCl (Dilaudid) 0.5 mg IVPUSH Q6H PRN PRN Reason: Pain (moderate 4-6) Last Admin: 10/29/16 23:10 Dose: 0.5 mg Hydromorphone HCl (Dilaudid) 1 mg IVPUSH Q6H PRN PRN Reason: Pain (severe 7-10) Last Admin: 10/30/16 17:10 Dose: 1 mg Sodium Chloride (Normal Saline) 1,000 mls @ 999 mls/hr IV ONETIME ONE Stop: 10/23/16 22:16 Last Admin: 10/23/16 21:25 Dose: 999 mls/hr Magnesium Sulfate 2 gm/ Premix 50 mls @ 25 mls/hr IV ONETIME ONE Stop: 10/24/16 00:38 Last Admin: 10/23/16 23:20 Dose: 25 mls/hr Potassium Chloride/Sodium Chloride (1/2 Ns With 20 Meq Kcl) 1,000 mls @ 999 mls /hr IV ASDIRECTED [facility] Stop: 10/24/16 00:01 Last Admin: 10/23/16 23:20 Dose: 999 mls/hr Potassium Chloride/Sodium Chloride (1/2 Ns With 20 Meq Kcl) 1,000 mls @ 150 mls /hr IV ASDIRECTED [facility] Last Admin: 10/24/16 09:15 Dose: 150 mls/hr Potassium Chloride/Dextrose/Sod Cl (D5 1/2 Ns W/ 20 Meq/L Kcl) 1,000 mls @ 150 mls/hr IV ASDIRECTED [facility] Last Admin: 10/24/16 18:01 Dose: 150 mls/hr Magnesium Sulfate 2 gm/ Premix 50 mls @ 25 mls/hr IV Q2H [facility] Stop: 10/24/16 14:44 Last Admin: 10/24/16 14:54 Dose: 25 mls/hr Magnesium Sulfate 2 gm/ Premix 50 mls @ 25 mls/hr IV ONETIME ONE Stop: 10/24/16 19:25 Last Admin: 10/24/16 18:01 Dose: 25 mls/hr Potassium Chloride/Dextrose/Sod Cl (D5 Ns With 20 Meq Kcl) 1,000 mls @ 100 mls/ hr IV ASDIRECTED [facility] Last Admin: 10/25/16 22:11 Dose: 100 mls/hr Magnesium Sulfate 2 gm/ Premix 50 mls @ 25 mls/hr IV ONETIME ONE Stop: 10/26/16 08:35 Last Admin: 10/26/16 07:50 Dose: 25 mls/hr Dextrose/Sodium Chloride (Dextrose 5%-1/2 Ns) 1,000 mls @ 70 mls/hr IV ASDIRECTED [facility] Last Admin: 10/26/16 08:54 Dose: 70 mls/hr Dextrose/Sodium Chloride (Dextrose 5%-Normal Saline) 1,000 mls @ 200 mls/hr IV ASDIRECTED [facility] Last Admin: 10/28/16 07:55 Dose: 200 mls/hr Magnesium Sulfate 2 gm/ Premix 50 mls @ 25 mls/hr IV Q2H [facility] Stop: 10/27/16 13:44 Last Admin: 10/27/16 12:29 Dose: 25 mls/hr Magnesium Sulfate 2 gm/ Premix 50 mls @ 50 mls/hr IV ONETIME ONE Stop: 10/28/16 10:29 Last Admin: 10/28/16 09:54 Dose: 50 mls/hr Dextrose/Sodium Chloride (Dextrose 5%-Normal Saline) 1,000 mls @ 250 mls/hr IV ASDIRECTED [facility] Last Admin: 10/30/16 08:25 Dose: 250 mls/hr Magnesium Sulfate 2 gm/ Premix 50 mls @ 25 mls/hr IV ONETIME ONE Stop: 10/29/16 13:29 Last Admin: 10/29/16 11:58 Dose: 25 mls/hr Magnesium Sulfate 4 gm/ Premix 100 mls @ 25 mls/hr IV ONETIME ONE Stop: 10/30/16 13:59 Last Admin: 10/30/16 10:57 Dose: 25 mls/hr Ibuprofen (Motrin) 800 mg PO BID [facility] Last Admin: 10/29/16 08:54 Dose: Not Given Iopamidol (Isovue-300 (61%)) 100 ml IVPUSH ONETIME ONE Stop: 10/29/16 10:26 Last Admin: 10/29/16 11:12 Dose: 100 ml Ketorolac Tromethamine (Toradol) 30 mg IVPUSH Q6H [facility] Stop: 10/26/16 16:31 Last Admin: 10/26/16 15:55 Dose: 30 mg Ketorolac Tromethamine (Toradol) 30 mg IVPUSH Q8H [facility] Stop: 10/31/16 04:31 Last Admin: 10/31/16 03:33 Dose: 30 mg Lisinopril (Prinivil) 10 mg PO DAILY [facility] Last Admin: 10/31/16 09:02 Dose: 10 mg Lisinopril (Prinivil) 10 mg PO ONETIME ONE Stop: 10/31/16 12:31 Last Admin: 10/31/16 13:54 Dose: 10 mg Lorazepam (Ativan) 0 mg IVPUSH ASDIRECTED PRN; Protocol PRN Reason: Withdrawal Symptoms Last Admin: 10/29/16 08:51 Dose: 1 mg Lorazepam (Ativan) 1 mg PO ONETIME ONE Stop: 10/23/16 23:39 Last Admin: 10/24/16 00:13 Dose: 1 mg Lorazepam (Ativan) 2 mg IVPUSH Q4H PRN PRN Reason: Seizures Metoprolol Tartrate (Lopressor) 5 mg IVPUSH Q6H PRN PRN Reason: Tachycardia Morphine Sulfate (Morphine) 4 mg IVPUSH ONETIME ONE Stop: 10/25/16 15:01 Last Admin: 10/25/16 14:29 Dose: 4 mg Nicotine (Habitrol) 21 mg TRDERM ONETIME ONE Stop: 10/24/16 00:31 Last Admin: 10/24/16 00:37 Dose: 21 mg Ondansetron HCl (Zofran) 4 mg IVPUSH ONETIME ONE Stop: 10/23/16 20:51 Last Admin: 10/23/16 21:27 Dose: 4 mg Oxycodone HCl (Oxycontin) 10 mg PO Q12HR [facility] Last Admin: 10/28/16 08:34 Dose: 10 mg Pantoprazole Sodium (Protonix Iv) 40 mg IVPUSH Q12H [facility] Last Admin: 10/26/16 23:30 Dose: 40 mg Pantoprazole Sodium (Protonix Iv) 40 mg IVPUSH Q12H [facility] Last Admin: 10/27/16 08:19 Dose: 40 mg Pantoprazole Sodium (Protonix) 40 mg PO DAILY@0700 [facility] Last Admin: 10/28/16 07:15 Dose: 40 mg Pneumococcal Polyvalent Vaccine (Pneumovax 23) 0.5 ml IM .ONCE ONE Stop: 10/24/16 08:13 Potassium Chloride (Klor-Con M20) 40 meq PO ONETIME ONE Stop: 10/27/16 08:01 Last Admin: 10/27/16 08:18 Dose: 40 meq Potassium Chloride (Klor-Con M20) 40 meq PO Q4H [facility] Stop: 10/28/16 13:31 Last Admin: 10/28/16 13:11 Dose: 40 meq - Exam General: Alert, Oriented, Cooperative, No Acute Distress HEENT: Pupils Equal, Pupils Reactive, EOMI Neck: Supple, Trachea Midline, No JVD Lungs: Clear to Auscultation, Normal Respiratory Effort Cardiovascular: Regular Rate, Regular Rhythm GI/Abdominal Exam: Normal Bowel Sounds, Soft, No Organomegaly, No Distention, No Abnormal Bruit, Tender (Male) Exam: Deferred Back Exam: Normal Inspection, Decreased Range of Motion Extremities: Normal Inspection, Normal Range of Motion, Non-Tender, No Pedal Edema, Normal Capillary Refill Peripheral Pulses: 3+: Posterior Tibial (L), Posterior Tibial (R), Dorsalis Pedis (L), Dorsalis Pedis (R) Skin: Warm, Dry, Intact Neurological: No New Focal Deficit Psy/Mental Status: Alert, Normal Affect, Normal Mood - Problem List Review Problem List Initiated/Reviewed/Updated: Yes - My Orders Last 24 Hours: My Active Orders 10/31/16 Breakfast Regular Diet [DIET] - Plan Plan:: Impression: Acute: Alcoholic Pancreatitis---> likely chronic pancreatitis - Likely resolved with CRP of 0.4 - Drinks heavy ETOH - CT without findings of pancreatitis, fatty infiltration within liver noted - Elevated lipase and fatty liver are chronic due to alcohol abuse - Counseled on quitting ETOH; SA consulted - As CT without findings of pancreatitis will advance to clear liquid diet - Tolerating oral pain meds but will increase his dose to 10 mg po Q6 PRN Resolved: Alcohol Withdrawal Symptoms - Zero VISHNU level on admission - Has family history of alcoholism - CIWA score is improved, DC librium - Continue CIWA protocol - SA has been consulted - Psych consulted - Withdrawal is completed; [facility] working with for placement, is committed Chronic: Hypertension, on lisinopril History of concussions ETOH Abuse Polysubstance abuse, no UDS done on this admission LE Fracture - metatarsal - He was on leg cast and now WBAT in CAM boot at all times when up - No pain in his foot Plan: He remains clinically stable He is tolerating diet Psych consult with Dr. Upton with medication recommendations, see orders Substance abuse consulted, see notes Routine AM Labs DVT/GI prophylaxis CM/[facility] for d/c planning Patient is full code LOS > 96 hrs pending placement for chemical dependency rehab Thursday. Both [facility] and [facility] to take him Thursday
[2016-11-01] MEDS: oxyCODONE 5 MG Tab PO PRN ×4 (06:35→21:51)
[2016-11-01] MEDS: Pantoprazole 40 MG Tab.CR PO SCH ×2 (06:35→15:41)
[2016-11-01] MEDS: Sucralfate 1 GM Tab PO SCH ×5 (06:35→21:51)
[2016-11-01] MEDS: Topiramate 25 MG Tab PO SCH ×2 (08:17→21:52)
[2016-11-01] MEDS: Magnesium Oxide 400 MG Tab PO SCH ×2 (08:17→21:51)
[2016-11-01] MEDS: Folic Acid 1 MG Tab PO SCH (08:17)
[2016-11-01] MEDS: FLUoxetine 20 MG Cap PO SCH (08:17)
[2016-11-01] MEDS: Lisinopril 20 MG Tab PO SCH (08:17)
[2016-11-01] MEDS ORDERED: Magnesium Sulfate/Water 50 ML IV ONE (10:30)
[2016-11-01] MEDS: Potassium Chloride 20 MEQ Tab.ER PO SCH ×2 (10:47→15:41)
[2016-11-01] MEDS: hydrALAZINE 20 MG/ML SDV IVPUSH PRN (16:00)
[2016-11-01] MEDS: Nicotine 21 MG/24 Hr Patch TRDERM SCH (21:51)
[2016-11-01] MEDS: QUEtiapine 25 MG Tab PO SCH (21:51)
[2016-11-01] MEDS: Thiamine 100 MG Tab PO SCH (21:52)
[2016-11-02] MEDS: oxyCODONE 5 MG Tab PO PRN ×3 (06:09→23:26)
[2016-11-02] MEDS: Sucralfate 1 GM Tab PO SCH ×4 (06:09→22:00)
[2016-11-02] MEDS: Pantoprazole 40 MG Tab.CR PO SCH ×2 (06:09→16:58)
--- NOTE | 2016-11-02 07:20 | PCM.PN ---
- General Info Date of Service: 11/02/16 Admission Dx/Problem (Free Text): Admission Diagnosis/Problem Admission Diagnosis/Problem Pancreatitis--chronic; alcohol withdrawl/ addiction Subjective Update: Follow Up Functional Status: Reports: Tolerating Diet, Ambulating, Urinating, New Symptoms (Insomnia). Denies: Pain Controlled Pain Score: 9 - Review of Systems General: Denies: Fever, Weakness, Fatigue, Malaise, Chills HEENT: Reports: No Symptoms Pulmonary: Denies: Shortness of Breath Cardiovascular: Denies: Chest Pain Gastrointestinal: Reports: Abdominal Pain. Denies: Nausea, Vomiting Genitourinary: Reports: No Symptoms Musculoskeletal: Reports: No Symptoms Skin: Denies: Cyanosis, Pruritis, Rash Neurological: Denies: Confusion, Dizziness, Difficulty Walking, Weakness, Gait Disturbance Psychiatric: Denies: Depression, Anxiety, Agitation, Cravings, Hallucinations, Suicidal Ideation Systems Review Comment:: No overnight or acute issues. His pain still there comes and goes. Current pain med (10 mg Oxy Q6 PRN) does not seem to make it go away. Also complaints of difficulty sleeping last night. He is currently on Seroquel and Topamax 50 mg po at bedtimes. He has no other issues. His Mg is 1.6 this am. - Patient Data Vitals - Most Recent: Last Vital Signs Temp 37.6 C 11/02/16 06:08 Pulse 54 L 11/02/16 06:08 Resp 12 11/02/16 06:08 BP 124/75 11/02/16 06:08 Pulse Ox 97 11/02/16 06:08 Weight - Most Recent: 65.771 kg I&O - Last 24 Hours: Intake & Output 11/01/16 11/02/16 11/02/16 22:59 06:59 14:59 Intake Total 890 800 Balance 890 800 Lab Results Last 24 Hours: Laboratory Results - last 24 hr 11/01/16 11/01/16 Range/Units 06:35 06:35 WBC 4.67 (4.23-9.07) K/mm3 RBC 4.29 L (4.63-6.08) M/mm3 Hgb 12.8 L (13.7-17.5) gm/L Hct 39.2 L (40.1-51.0) % MCV 91.4 (79.0-92.2) fl MCH 29.8 (25.7-32.2) pg MCHC 32.7 (32.2-35.5) g/dl RDW Std Deviation 44.8 H (35.1-43.9) fL Plt Count 232 (163-337) K/mm3 MPV 11.8 (9.4-12.3) fl Neut % (Auto) 37.5 (34.0-67.9) % Lymph % (Auto) 35.3 (21.8-53.1) % Hendricks % (Auto) 23.8 H (5.3-12.2) % Eos % (Auto) 3.0 (0.8-7.0) Baso % (Auto) 0.4 (0.1-1.2) % Neut # (Auto) 1.75 L (1.78-5.38) K/mm3 Lymph # (Auto) 1.65 (1.32-3.57) K/mm3 Hendricks # (Auto) 1.11 H (0.30-0.82) K/mm3 Eos # (Auto) 0.14 (0.04-0.54) K/mm3 Baso # (Auto) 0.02 (0.01-0.08) K/mm3 Manual Slide Review Abnormal smear Sodium 140 (136-145) mEq/L Potassium 3.5 (3.5-5.1) mEq/L Chloride 107 (98-107) mEq/L Carbon Dioxide 25 (21-32) mEq/L Anion Gap 11.5 (5-15) BUN 8 (7-18) mg/dL Creatinine 0.9 (0.7-1.3) mg/dL Est Cr Clr Drug Dosing 107.59 mL/min Estimated GFR (MDRD) > 60 (>60) mL/min BUN/Creatinine Ratio 8.9 L (14-18) Glucose 94 (74-106) mg/dL Calcium 9.0 (8.5-10.1) mg/dL Magnesium 1.6 L (1.8-2.4) mg/dl C-Reactive Protein < 0.2 (<1.0) mg/dL Med Orders - Current: Current Medications Docusate Sodium (Colace) 100 mg PO DAILY PRN PRN Reason: Constipation Last Admin: 10/27/16 02:40 Dose: 100 mg Fluoxetine HCl (Prozac) 20 mg PO DAILY [facility] Last Admin: 11/01/16 08:17 Dose: 20 mg Folic Acid (Folic Acid) 1 mg PO DAILY [facility] Last Admin: 11/01/16 08:17 Dose: 1 mg Hydralazine HCl (Apresoline) 20 mg IVPUSH Q4H PRN PRN Reason: Hypertension Last Admin: 11/01/16 16:00 Dose: 20 mg Lisinopril (Prinivil) 20 mg PO DAILY [facility] Last Admin: 11/01/16 08:17 Dose: 20 mg Magnesium Oxide (Magnesium Oxide) 800 mg PO BID [facility] Last Admin: 11/01/16 21:51 Dose: 800 mg Magnesium Sulfate (Pharmacy To Dose - Magnesium Replacement) 0 dose .XX ASDIRECTED PRN PRN Reason: RX TO WATCH MAG LEVELS Metoprolol Tartrate (Lopressor) 5 mg IVPUSH Q4H PRN PRN Reason: Tachycardia Nicotine (Habitrol) 21 mg TRDERM 2100 [facility] Last Admin: 11/01/16 21:51 Dose: 21 mg Ondansetron HCl (Zofran) 4 mg IVPUSH Q4H PRN PRN Reason: Nausea/Vomiting Last Admin: 10/27/16 04:25 Dose: 4 mg Oxycodone HCl (Oxycodone) 10 mg PO Q6H PRN PRN Reason: Pain Last Admin: 11/02/16 06:09 Dose: 10 mg Pantoprazole Sodium (Protonix) 40 mg PO BIDAC [facility] Last Admin: 11/02/16 06:09 Dose: 40 mg Potassium Chloride (Pharmacy To Dose - Potassium Replacement) 0 dose .XX ASDIRECTED PRN PRN Reason: RX TO WATCH K LEVELS Quetiapine Fumarate (Seroquel) 50 mg PO BEDTIME [facility] Last Admin: 11/01/16 21:51 Dose: 50 mg Senna/Docusate Sodium (Senna Plus) 1 tab PO DAILY PRN PRN Reason: Constipation Last Admin: 10/27/16 02:40 Dose: 1 tab Sodium Chloride (Saline Flush) 10 ml FLUSH ONETIME PRN PRN Reason: IV FLUSH Last Admin: 10/29/16 11:12 Dose: 10 ml Sucralfate (Carafate) 1 gm PO QIDACANDBED [facility] Last Admin: 11/02/16 06:09 Dose: 1 gm Thiamine HCl (Vitamin B-1) 100 mg PO BEDTIME [facility] Last Admin: 11/01/16 21:52 Dose: 100 mg Topiramate (Topamax) 25 mg PO BID [facility] Stop: 11/02/16 21:01 Last Admin: 11/01/16 21:52 Dose: 25 mg Topiramate (Topamax) 50 mg PO BID [facility] Discontinued Medications Hydrocodone Bitart/Acetaminophen (Tomales 325-5 Mg) 1 tab PO Q4H PRN PRN Reason: Pain/Fever Last Admin: 10/28/16 01:25 Dose: 1 tab Bumetanide (Bumex) 0.5 mg IVPUSH ONETIME ONE Stop: 10/26/16 16:37 Last Admin: 10/26/16 16:42 Dose: 0.5 mg Chlordiazepoxide HCl (Librium) 25 mg PO BID [facility] Last Admin: 10/25/16 20:41 Dose: 25 mg Chlordiazepoxide HCl (Librium) 25 mg PO TID [facility] Last Admin: 10/28/16 08:37 Dose: 25 mg Clonidine HCl (Catapres) 0.1 mg PO BID [facility] Last Admin: 10/30/16 08:44 Dose: 0.1 mg Diatrizoate Meglum/Diatrizoate Sod (Gastrografin 37%) 120 ml PO ONETIME ONE Stop: 10/29/16 10:26 Last Admin: 10/29/16 11:12 Dose: 90 ml Enoxaparin Sodium (Lovenox) 40 mg SUBCUT DAILY [facility] Last Admin: 10/26/16 08:53 Dose: 40 mg Hydralazine HCl (Apresoline) 20 mg IVPUSH ONETIME ONE Stop: 10/26/16 05:48 Last Admin: 10/26/16 05:55 Dose: 20 mg Hydralazine HCl (Apresoline) 20 mg IVPUSH Q6H PRN PRN Reason: Hypertension Hydromorphone HCl (Dilaudid) 0.5 mg IVPUSH ONETIME ONE Stop: 10/23/16 20:51 Last Admin: 10/23/16 21:26 Dose: 0.5 mg Hydromorphone HCl (Dilaudid) 0.5 mg IVPUSH STAT STA Stop: 10/23/16 22:30 Last Admin: 10/23/16 22:33 Dose: 0.5 mg Hydromorphone HCl (Dilaudid) 1 mg IVPUSH Q4H PRN PRN Reason: Pain Last Admin: 10/25/16 07:42 Dose: 1 mg Hydromorphone HCl (Dilaudid) 2 mg IVPUSH Q4H PRN PRN Reason: Pain Last Admin: 10/26/16 00:36 Dose: 2 mg Hydromorphone HCl (Dilaudid) 1 mg IVPUSH ONETIME ONE Stop: 10/26/16 04:48 Last Admin: 10/26/16 04:57 Dose: 1 mg Hydromorphone HCl (Dilaudid) 1 mg IVPUSH Q6H PRN PRN Reason: Pain Last Admin: 10/28/16 07:26 Dose: 1 mg Hydromorphone HCl (Dilaudid) 0.5 mg IVPUSH Q6H PRN PRN Reason: Pain (moderate 4-6) Last Admin: 10/29/16 23:10 Dose: 0.5 mg Hydromorphone HCl (Dilaudid) 1 mg IVPUSH Q6H PRN PRN Reason: Pain (severe 7-10) Last Admin: 10/30/16 17:10 Dose: 1 mg Sodium Chloride (Normal Saline) 1,000 mls @ 999 mls/hr IV ONETIME ONE Stop: 10/23/16 22:16 Last Admin: 10/23/16 21:25 Dose: 999 mls/hr Magnesium Sulfate 2 gm/ Premix 50 mls @ 25 mls/hr IV ONETIME ONE Stop: 10/24/16 00:38 Last Admin: 10/23/16 23:20 Dose: 25 mls/hr Potassium Chloride/Sodium Chloride (1/2 Ns With 20 Meq Kcl) 1,000 mls @ 999 mls /hr IV ASDIRECTED [facility] Stop: 10/24/16 00:01 Last Admin: 10/23/16 23:20 Dose: 999 mls/hr Potassium Chloride/Sodium Chloride (1/2 Ns With 20 Meq Kcl) 1,000 mls @ 150 mls /hr IV ASDIRECTED [facility] Last Admin: 10/24/16 09:15 Dose: 150 mls/hr Potassium Chloride/Dextrose/Sod Cl (D5 1/2 Ns W/ 20 Meq/L Kcl) 1,000 mls @ 150 mls/hr IV ASDIRECTED [facility] Last Admin: 10/24/16 18:01 Dose: 150 mls/hr Magnesium Sulfate 2 gm/ Premix 50 mls @ 25 mls/hr IV Q2H [facility] Stop: 10/24/16 14:44 Last Admin: 10/24/16 14:54 Dose: 25 mls/hr Magnesium Sulfate 2 gm/ Premix 50 mls @ 25 mls/hr IV ONETIME ONE Stop: 10/24/16 19:25 Last Admin: 10/24/16 18:01 Dose: 25 mls/hr Potassium Chloride/Dextrose/Sod Cl (D5 Ns With 20 Meq Kcl) 1,000 mls @ 100 mls/ hr IV ASDIRECTED [facility] Last Admin: 10/25/16 22:11 Dose: 100 mls/hr Magnesium Sulfate 2 gm/ Premix 50 mls @ 25 mls/hr IV ONETIME ONE Stop: 10/26/16 08:35 Last Admin: 10/26/16 07:50 Dose: 25 mls/hr Dextrose/Sodium Chloride (Dextrose 5%-1/2 Ns) 1,000 mls @ 70 mls/hr IV ASDIRECTED [facility] Last Admin: 10/26/16 08:54 Dose: 70 mls/hr Dextrose/Sodium Chloride (Dextrose 5%-Normal Saline) 1,000 mls @ 200 mls/hr IV ASDIRECTED [facility] Last Admin: 10/28/16 07:55 Dose: 200 mls/hr Magnesium Sulfate 2 gm/ Premix 50 mls @ 25 mls/hr IV Q2H [facility] Stop: 10/27/16 13:44 Last Admin: 10/27/16 12:29 Dose: 25 mls/hr Magnesium Sulfate 2 gm/ Premix 50 mls @ 50 mls/hr IV ONETIME ONE Stop: 10/28/16 10:29 Last Admin: 10/28/16 09:54 Dose: 50 mls/hr Dextrose/Sodium Chloride (Dextrose 5%-Normal Saline) 1,000 mls @ 250 mls/hr IV ASDIRECTED [facility] Last Admin: 10/30/16 08:25 Dose: 250 mls/hr Magnesium Sulfate 2 gm/ Premix 50 mls @ 25 mls/hr IV ONETIME ONE Stop: 10/29/16 13:29 Last Admin: 10/29/16 11:58 Dose: 25 mls/hr Magnesium Sulfate 4 gm/ Premix 100 mls @ 25 mls/hr IV ONETIME ONE Stop: 10/30/16 13:59 Last Admin: 10/30/16 10:57 Dose: 25 mls/hr Magnesium Sulfate (Magnesium Sulfate 2 Gm In Water 50 Ml) 50 mls @ 50 mls/hr IV ONETIME ONE Stop: 11/01/16 11:29 Last Admin: 11/01/16 10:47 Dose: 50 mls/hr Ibuprofen (Motrin) 800 mg PO BID [facility] Last Admin: 10/29/16 08:54 Dose: Not Given Iopamidol (Isovue-300 (61%)) 100 ml IVPUSH ONETIME ONE Stop: 10/29/16 10:26 Last Admin: 10/29/16 11:12 Dose: 100 ml Ketorolac Tromethamine (Toradol) 30 mg IVPUSH Q6H [facility] Stop: 10/26/16 16:31 Last Admin: 10/26/16 15:55 Dose: 30 mg Ketorolac Tromethamine (Toradol) 30 mg IVPUSH Q8H [facility] Stop: 10/31/16 04:31 Last Admin: 10/31/16 03:33 Dose: 30 mg Lisinopril (Prinivil) 10 mg PO DAILY [facility] Last Admin: 10/31/16 09:02 Dose: 10 mg Lisinopril (Prinivil) 10 mg PO ONETIME ONE Stop: 10/31/16 12:31 Last Admin: 10/31/16 13:54 Dose: 10 mg Lorazepam (Ativan) 0 mg IVPUSH ASDIRECTED PRN; Protocol PRN Reason: Withdrawal Symptoms Last Admin: 10/29/16 08:51 Dose: 1 mg Lorazepam (Ativan) 1 mg PO ONETIME ONE Stop: 10/23/16 23:39 Last Admin: 10/24/16 00:13 Dose: 1 mg Lorazepam (Ativan) 2 mg IVPUSH Q4H PRN PRN Reason: Seizures Magnesium Oxide (Magnesium Oxide) 400 mg PO BID [facility] Last Admin: 11/01/16 08:17 Dose: 400 mg Metoprolol Tartrate (Lopressor) 5 mg IVPUSH Q6H PRN PRN Reason: Tachycardia Morphine Sulfate (Morphine) 4 mg IVPUSH ONETIME ONE Stop: 10/25/16 15:01 Last Admin: 10/25/16 14:29 Dose: 4 mg Nicotine (Habitrol) 21 mg TRDERM ONETIME ONE Stop: 10/24/16 00:31 Last Admin: 10/24/16 00:37 Dose: 21 mg Ondansetron HCl (Zofran) 4 mg IVPUSH ONETIME ONE Stop: 10/23/16 20:51 Last Admin: 10/23/16 21:27 Dose: 4 mg Oxycodone HCl (Oxycontin) 10 mg PO Q12HR [facility] Last Admin: 10/28/16 08:34 Dose: 10 mg Oxycodone HCl (Oxycodone) 5 mg PO Q4H PRN PRN Reason: Pain (moderate 4-6) Last Admin: 11/01/16 10:48 Dose: 5 mg Pantoprazole Sodium (Protonix Iv) 40 mg IVPUSH Q12H [facility] Last Admin: 10/26/16 23:30 Dose: 40 mg Pantoprazole Sodium (Protonix Iv) 40 mg IVPUSH Q12H [facility] Last Admin: 10/27/16 08:19 Dose: 40 mg Pantoprazole Sodium (Protonix) 40 mg PO DAILY@0700 [facility] Last Admin: 10/28/16 07:15 Dose: 40 mg Pneumococcal Polyvalent Vaccine (Pneumovax 23) 0.5 ml IM .ONCE ONE Stop: 10/24/16 08:13 Potassium Chloride (Klor-Con M20) 40 meq PO ONETIME ONE Stop: 10/27/16 08:01 Last Admin: 10/27/16 08:18 Dose: 40 meq Potassium Chloride (Klor-Con M20) 40 meq PO Q4H [facility] Stop: 10/28/16 13:31 Last Admin: 10/28/16 13:11 Dose: 40 meq Potassium Chloride (Klor-Con M20) 20 meq PO Q3H [facility] Stop: 11/01/16 14:01 Last Admin: 11/01/16 15:41 Dose: 20 meq - Exam General: Alert, Oriented, Cooperative, No Acute Distress HEENT: Pupils Equal, Pupils Reactive, EOMI, Mucous Membr. Moist/[place] Neck: Supple, Trachea Midline, No JVD, No Thyromegaly Lungs: Clear to Auscultation, Normal Respiratory Effort Cardiovascular: Regular Rate, Regular Rhythm GI/Abdominal Exam: Normal Bowel Sounds, Soft, No Organomegaly, No Distention, No Abnormal Bruit, Tender (Left Upper Quadrant and Middle Abdomen). No: Distended, Guarding, Rigid, Rebound (Male) Exam: Deferred Back Exam: Normal Inspection, Full Range of Motion. No: Muscle Spasm Extremities: Normal Inspection, Normal Range of Motion, Non-Tender, No Pedal Edema, Normal Capillary Refill Peripheral Pulses: 3+: Posterior Tibial (L), Posterior Tibial (R), Dorsalis Pedis (L), Dorsalis Pedis (R) Skin: Warm, Dry, Intact Neurological: No New Focal Deficit Psy/Mental Status: Alert, Normal Affect, Normal Mood - Problem List Review Problem List Initiated/Reviewed/Updated: Yes - My Orders Last 24 Hours: My Active Orders 11/01/16 13:43 oxyCODONE 10 mg PO Q6H PRN 11/01/16 21:00 Magnesium Oxide 800 mg PO BID - Plan Plan:: Impression: Acute: Alcoholic Pancreatitis---> likely chronic pancreatitis - Likely resolved with CRP of 0.2 - Lipases 868 yesterday - Drinks heavy ETOH - CT without findings of pancreatitis, fatty infiltration within liver noted - Elevated lipase and fatty liver are chronic due to alcohol abuse - Counseled on quitting ETOH; SA consulted - As CT without findings of pancreatitis will advance to clear liquid diet - Tolerating oral pain meds but will increase his dose to 10 mg po Q6 PRN Hypomagnesemia - This appears to be chronic - He is now on MgOx 800 mg po BID - Continue to monitor Resolved: Alcohol Withdrawal Symptoms - Zero VISHNU level on admission - Has family history of alcoholism - CIWA score is improved, DC librium - Continue CIWA protocol - SA has been consulted - Psych consulted - Withdrawal is completed; SW working with for placement, is committed Chronic: Hypertension, on lisinopril History of concussions ETOH Abuse Polysubstance abuse, no UDS done on this admission LE Fracture - metatarsal - He was on leg cast and now WBAT in CAM boot at all times when up - No pain in his foot Plan: He remains clinically stable Psych consult with Dr. Upton with medication recommendations, see orders Substance abuse consulted, see notes Routine AM Labs Continue Seroquel and Topamax dose at bedtime Dilaudid 1 mg IV x1 now DVT/GI prophylaxis CM/SW for d/c planning Patient is full code LOS > 96 hrs pending placement for chemical dependency rehab Thursday. Both [facility] and [facility] would be willing to take him Thursday
[2016-11-02] MEDS ORDERED: HYDROmorphone 1 MG/ML Syringe IVPUSH ONE (09:15)
[2016-11-02] MEDS: Magnesium Oxide 400 MG Tab PO SCH ×2 (09:24→21:59)
[2016-11-02] MEDS: Folic Acid 1 MG Tab PO SCH (09:24)
[2016-11-02] MEDS: Lisinopril 20 MG Tab PO SCH (09:25)
[2016-11-02] MEDS: FLUoxetine 20 MG Cap PO SCH (09:25)
[2016-11-02] MEDS: Topiramate 25 MG Tab PO SCH ×2 (09:26→21:59)
[2016-11-02] MEDS: Thiamine 100 MG Tab PO SCH (21:59)
[2016-11-02] MEDS: QUEtiapine 25 MG Tab PO SCH (22:00)
[2016-11-02] MEDS: Nicotine 21 MG/24 Hr Patch TRDERM SCH (23:27)
[2016-11-03] MEDS: Sucralfate 1 GM Tab PO SCH ×2 (06:02→10:42)
[2016-11-03] MEDS: Pantoprazole 40 MG Tab.CR PO SCH (06:02)
[2016-11-03] MEDS: oxyCODONE 5 MG Tab PO PRN (07:45)
[2016-11-03 08:18] VITALS: BP 105/84
[2016-11-03] MEDS: Magnesium Oxide 400 MG Tab PO SCH (08:18)
[2016-11-03] MEDS: Folic Acid 1 MG Tab PO SCH (08:18)
[2016-11-03] MEDS: FLUoxetine 20 MG Cap PO SCH (08:18)
[2016-11-03] MEDS: Lisinopril 20 MG Tab PO SCH (08:19)
[2016-11-03] MEDS ORDERED: Topiramate 25 MG Tab PO SCH (09:00)
== END 2016-11-03 12:20 | DRG 439 ==
LOC: JD.ED 20:19 → JD.MS 22:11 → JD.ICU 10-26 04:49 → JD.MS 10-28 10:11
PROVIDERS: ADMIT Internal Medicine Cardiovascular Disease; ATTEND Internal Medicine Cardiovascular Disease
PROC: HZ2ZZZZ Detoxification Services for Substance Abuse Treatment (ICD-10-PCS; principal; 2016-10-23)
DX: K85.20 Alcohol induced acute pancreatitis without necrosis or infection (principal); F10.232 Alcohol dependence with withdrawal with perceptual disturbance; K86.0 Alcohol-induced chronic pancreatitis; F10.229 Alcohol dependence with intoxication, unspecified; E87.6 Hypokalemia; E83.42 Hypomagnesemia; I10 Essential (primary) hypertension; F17.210 Nicotine dependence, cigarettes, uncomplicated; F32.9 Major depressive disorder, single episode, unspecified; F41.9 Anxiety disorder, unspecified; F29 Unspecified psychosis not due to a substance or known physiological condition; S92.331A Displaced fracture of third metatarsal bone, right foot, initial encounter for closed fracture; S92.341A Displaced fracture of fourth metatarsal bone, right foot, initial encounter for closed fracture; X58.XXXA Exposure to other specified factors, initial encounter; Z79.82 Long term (current) use of aspirin; Z79.899 Other long term (current) drug therapy; Y90.1 Blood alcohol level of 20-39 mg/100 ml
CPT/HCPCS: 36415; 74177; 74177-26; 80048; 80053; 82962; 83036; 83690; 83735; 84443; 85025; 85027; 86140; 96361; 96374; 96375; 97116-GP; 97161-GP; 99284; 99285-25; A9270-GY; C9113; G0480; J0360; J1170; J1650; J1885; J2060; J2270; J2405; J3475; J3480; J3490; J7040; J7042; J7050; Q9963; Q9967

== ENCOUNTER 2017-04-26 21:00 | Inpatient (IN) | payer MEDICAID ==
[2017-04-26] MEDS ORDERED: Ondansetron 4 MG/2 ML SDV IVPUSH ONE (21:33)
[2017-04-26] MEDS ORDERED: HYDROmorphone 0.5 MG/0.5 ML SYRINGE IVPUSH ONE (21:37)
[2017-04-26] MEDS: Sodium Chloride 0.9% 1,000 ML IV SCH (21:46)
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
[2017-04-27] MEDS ORDERED: Magnesium Sulfate/Water 2 GM in Premix Bag 1 BAG IV ONE (00:13)
[2017-04-27] MEDS ORDERED: Polyethylene Glycol 3350 Powder 17 GM Packet PO PRN (00:49)
[2017-04-27] MEDS ORDERED: Promethazine 12.5 MG in Sodium Chloride 0.9% 50 ML IV PRN (00:49)
[2017-04-27] MEDS ORDERED: Docusate Sodium 100 MG Cap PO PRN (00:49)
[2017-04-27] MEDS ORDERED: Bisacodyl 5 MG Tab PO PRN (00:49)
[2017-04-27] MEDS ORDERED: Acetaminophen 325 MG Tab PO PRN (00:49)
[2017-04-27] MEDS ORDERED: HYDROmorphone 1 MG/ML Syringe IVPUSH PRN (00:49)
[2017-04-27] MEDS ORDERED: Albuterol/Ipratropium 3.0-0.5 MG/3 ML Neb Soln NEB PRN (00:49)
[2017-04-27] MEDS ORDERED: Thiamine 100 MG in Sodium Chloride 0.9% 50 ML IV ONE (00:52)
[2017-04-27] MEDS ORDERED: cloNIDine 0.1 MG Tab PO PRN (00:52)
[2017-04-27] MEDS ORDERED: LORazepam 2 MG/ML SDV IVPUSH PRN (00:55)
[2017-04-27] MEDS ORDERED: Metoprolol Tartrate 5 MG/5 ML SDV IVPUSH PRN (00:55)
[2017-04-27] MEDS ORDERED: QUEtiapine 25 MG Tab PO ONE (00:57)
[2017-04-27] MEDS ORDERED: Topiramate 25 MG Tab PO ONE (00:57)
[2017-04-27] MEDS ORDERED: cloNIDine 0.3 MG/Day Transdermal Patch TRDERM SCH (01:00)
[2017-04-27] MEDS ORDERED: Magnesium Sulfate/Water 50 ML IV SCH (01:30)
[2017-04-27] MEDS ORDERED: Pantoprazole 40 MG Vial ONE (01:30)
[2017-04-27] MEDS: Ondansetron 4 MG/2 ML SDV IV PRN ×2 (01:33→09:26)
[2017-04-27] MEDS: LORazepam 2 MG/ML SDV IVPUSH PRN ×3 (01:38→10:45)
[2017-04-27] MEDS: Magnesium Sulfate/Water 50 ML IV SCH ×2 (03:05→04:59)
[2017-04-27] MEDS: Sodium Chloride 0.9% 1,000 ML IV SCH ×5 (03:06→23:39)
[2017-04-27] MEDS ORDERED: HYDROmorphone 0.5 MG/0.5 ML SYRINGE ONE (03:06)
[2017-04-27] MEDS: Famotidine 20 MG Tab PO SCH ×2 (06:43→18:11)
[2017-04-27] MEDS: HYDROmorphone 0.5 MG/0.5 ML SYRINGE IVPUSH PRN ×4 (07:49→23:39)
[2017-04-27] MEDS: Multivitamins,Therapeutic Tab PO SCH (09:22)
[2017-04-27] MEDS: Thiamine 100 MG Tab PO SCH (09:22)
[2017-04-27] MEDS: Acetaminophen/HYDROcodone 325-5 MG Tab PO PRN (09:22)
[2017-04-27] MEDS: Topiramate 25 MG Tab PO SCH ×2 (09:24→20:10)
[2017-04-27] MEDS: Folic Acid 1 MG Tab PO SCH (09:24)
[2017-04-27] MEDS: Nicotine 21 MG/24 Hr Patch TRDERM SCH (09:25)
--- NOTE | 2017-04-27 11:26 | PCM.PN ---
- General Info Date of Service: 04/27/17 Admission Dx/Problem (Free Text): Admission Diagnosis/Problem Admission Diagnosis/Problem Pancreatitis Subjective Update: Follow Up Functional Status: Reports: Pain Controlled, Tolerating Diet, Ambulating, Urinating. Denies: New Symptoms Pain Score: 5 - Review of Systems General: Denies: Fever, Weakness, Fatigue, Malaise, Chills HEENT: Reports: No Symptoms Pulmonary: Denies: Shortness of Breath Cardiovascular: Denies: Chest Pain Gastrointestinal: Reports: Abdominal Pain, Flatus. Denies: Constipation, Decreased Appetite, Diarrhea, Nausea, Vomiting Genitourinary: Reports: No Symptoms Musculoskeletal: Reports: No Symptoms Skin: Denies: Cyanosis, Jaundice, Mottled, Pallor, Diaphoresis, Bruising, Pruritis, Rash Neurological: Denies: Confusion, Dizziness, Seizure, Difficulty Walking, Weakness, Gait Disturbance Psychiatric: Denies: Depression, Anxiety, Agitation, Cravings, Hallucinations, Suicidal Ideation, Homicidal Ideation Systems Review Comment:: No significant overnight or acute issues. He slept through the night according to his nurse although he denies it. His CIWA score this morning is about 15. He reports no new complaints. - Patient Data Vitals - Most Recent: Last Vital Signs Temp 36.9 C 04/27/17 07:53 Pulse 93 04/27/17 08:05 Resp 13 04/27/17 07:53 BP 138/95 H 04/27/17 08:05 Pulse Ox 95 04/27/17 07:53 Weight - Most Recent: 65.771 kg I&O - Last 24 Hours: Intake & Output 04/26/17 04/27/17 04/27/17 22:59 06:59 14:59 Intake Total 1150 Balance 1150 Lab Results Last 24 Hours: Laboratory Results - last 24 hr 04/27/17 04/27/17 Range/Units 05:25 05:25 WBC 7.28 (4.23-9.07) K/mm3 RBC 4.49 L (4.63-6.08) M/mm3 Hgb 13.4 L (13.7-17.5) gm/L Hct 38.8 L (40.1-51.0) % MCV 86.4 (79.0-92.2) fl MCH 29.8 (25.7-32.2) pg MCHC 34.5 (32.2-35.5) g/dl RDW Std Deviation 41.8 (35.1-43.9) fL Plt Count 46 L (163-337) K/mm3 MPV 11.8 (9.4-12.3) fl Neut % (Auto) 80.9 H (34.0-67.9) % Lymph % (Auto) 11.1 L (21.8-53.1) % Emery % (Auto) 8.0 (5.3-12.2) % Eos % (Auto) 0 L (0.8-7.0) Baso % (Auto) 0.0 L (0.1-1.2) % Neut # (Auto) 5.89 H (1.78-5.38) K/mm3 Lymph # (Auto) 0.81 L (1.32-3.57) K/mm3 Emery # (Auto) 0.58 (0.30-0.82) K/mm3 Eos # (Auto) 0.00 L (0.04-0.54) K/mm3 Baso # (Auto) 0.00 L (0.01-0.08) K/mm3 Manual Slide Review Abnormal smear Sodium 145 (136-145) mEq/L Potassium 3.9 (3.5-5.1) mEq/L Chloride 106 (98-107) mEq/L Carbon Dioxide 27 (21-32) mEq/L Anion Gap 15.9 H (5-15) BUN 10 (7-18) mg/dL Creatinine 0.8 (0.7-1.3) mg/dL Est Cr Clr Drug Dosing 113.18 mL/min Estimated GFR (MDRD) > 60 (>60) mL/min BUN/Creatinine Ratio 12.5 L (14-18) Glucose 105 (74-106) mg/dL Calcium 8.5 (8.5-10.1) mg/dL Magnesium 2.7 H (1.8-2.4) mg/dl C-Reactive Protein 0.2 (<1.0) mg/dL Triglycerides 60 (<150) mg/dL Cholesterol 142 (<200) mg/dL LDL Cholesterol Direct 59 (<100) mg/dL HDL Cholesterol 76.0 H (40-59) mg/dL Med Orders - Current: Current Medications Acetaminophen (Tylenol) 650 mg PO Q4H PRN PRN Reason: Pain (Mild 1-3)/fever Hydrocodone Bitart/Acetaminophen (Gypsum 325-5 Mg) 1 tab PO Q4H PRN PRN Reason: Pain (moderate 4-6) Last Admin: 04/27/17 09:22 Dose: 1 tab Albuterol/Ipratropium (Duoneb 3.0-0.5 Mg/3 Ml) 3 ml NEB Q4H PRN PRN Reason: Shortness Of Breath/wheezing Bisacodyl (Dulcolax) 5 mg PO DAILY PRN PRN Reason: Constipation Clonidine HCl (Catapres) 0.1 mg PO Q4H PRN PRN Reason: Agitation Clonidine HCl (Catapres-Tts 3) 0.3 mg TRDERM Q7D [facility] Last Admin: 04/27/17 01:26 Dose: 0.3 mg Docusate Sodium (Colace) 100 mg PO BID PRN PRN Reason: Constipation Famotidine (Pepcid) 20 mg PO Q12H [facility] Last Admin: 04/27/17 06:43 Dose: 20 mg Folic Acid (Folic Acid) 1 mg PO DAILY [facility] Stop: 04/29/17 09:01 Last Admin: 04/27/17 09:24 Dose: 1 mg Hydralazine HCl (Apresoline) 20 mg IVPUSH Q4H PRN PRN Reason: Hypertension Hydromorphone HCl (Dilaudid) 1 mg IVPUSH Q4H PRN PRN Reason: Pain (severe 7-10) Last Admin: 04/27/17 07:49 Dose: 1 mg Sodium Chloride (Normal Saline) 1,000 mls @ 250 mls/hr IV ASDIRECTED [facility] Last Admin: 04/27/17 11:25 Dose: 250 mls/hr Promethazine HCl 12.5 mg/ (Sodium Chloride) 50.5 mls @ 100 mls/hr IV Q6H PRN PRN Reason: Nausea/Vomiting Lorazepam (Ativan) 2 mg IVPUSH Q4H PRN PRN Reason: Seizures Lorazepam (Ativan) 0 mg IVPUSH Q4H PRN; Protocol PRN Reason: Withdrawal Symptoms Last Admin: 04/27/17 10:45 Dose: 2 mg Magnesium Sulfate (Pharmacy To Dose - Magnesium Replacement) 1 dose .XX ASDIRECTED [facility] Metoprolol Tartrate (Lopressor) 5 mg IVPUSH Q4H PRN PRN Reason: Tachycardia Multivitamins (Thera) 1 each PO DAILY [facility] Last Admin: 04/27/17 09:22 Dose: 1 each Nicotine (Habitrol) 21 mg TRDERM DAILY [facility] Last Admin: 04/27/17 09:25 Dose: 21 mg Ondansetron HCl (Zofran) 4 mg IV Q4H PRN PRN Reason: Nausea/Vomiting Last Admin: 04/27/17 09:26 Dose: 4 mg Polyethylene Glycol (Miralax) 17 gm PO DAILY PRN PRN Reason: Constipation Potassium Chloride (Pharmacy To Dose - Potassium Replacement) 1 dose .XX ASDIRECTED [facility] Quetiapine Fumarate (Seroquel) 50 mg PO BEDTIME [facility] Senna/Docusate Sodium (Senna Plus) 1 tab PO BID PRN PRN Reason: Constipation Thiamine HCl (Vitamin B-1) 100 mg PO DAILY [facility] Last Admin: 04/27/17 09:22 Dose: 100 mg Topiramate (Topamax) 25 mg PO BID [facility] Last Admin: 04/27/17 09:24 Dose: 25 mg Discontinued Medications Hydromorphone HCl (Dilaudid) 0.5 mg IVPUSH ONETIME ONE Stop: 04/26/17 21:38 Last Admin: 04/26/17 21:47 Dose: 0.5 mg Hydromorphone HCl (Dilaudid) 1 mg IVPUSH Q4H PRN PRN Reason: Pain (severe 7-10) Hydromorphone HCl (Dilaudid) Confirm Administered Dose 1 mg .ROUTE .STK-MED ONE Stop: 04/27/17 03:07 Last Admin: 04/27/17 03:06 Dose: 1 mg Magnesium Sulfate 2 gm/ Premix 50 mls @ 50 mls/hr IV ONETIME ONE Stop: 04/27/17 01:12 Last Admin: 04/27/17 00:18 Dose: 50 mls/hr Thiamine HCl 100 mg/ Sodium (Chloride) 51 mls @ 100 mls/hr IV ONETIME ONE Stop: 04/27/17 01:22 Last Admin: 04/27/17 01:27 Dose: 100 mls/hr Magnesium Sulfate (Magnesium Sulfate 2 Gm In Water 50 Ml) 50 mls @ 25 mls/hr IV Q2H [facility] Stop: 04/27/17 07:29 Magnesium Sulfate (Magnesium Sulfate 2 Gm In Water 50 Ml) 50 mls @ 25 mls/hr IV Q2H [facility] Stop: 04/27/17 06:59 Last Admin: 04/27/17 04:59 Dose: 25 mls/hr Ondansetron HCl (Zofran) 4 mg IVPUSH ONETIME ONE Stop: 04/26/17 21:34 Last Admin: 04/26/17 21:47 Dose: 4 mg Pantoprazole Sodium (Protonix Iv) 40 mg .XX ONETIME ONE Stop: 04/27/17 01:31 Last Admin: 04/27/17 01:26 Dose: 40 mg Quetiapine Fumarate (Seroquel) 50 mg PO ONETIME ONE Stop: 04/27/17 00:58 Last Admin: 04/27/17 01:26 Dose: 50 mg Topiramate (Topamax) 25 mg PO BEDTIME ONE Stop: 04/27/17 00:58 Last Admin: 04/27/17 01:26 Dose: 25 mg - Exam General: Alert, Oriented, Cooperative, No Acute Distress, Sedated HEENT: Pupils Equal, Pupils Reactive, EOMI, Mucous Membr. Moist/[place] Neck: Supple, Trachea Midline, No JVD, No Thyromegaly Lungs: Clear to Auscultation, Normal Respiratory Effort Cardiovascular: Regular Rate, Regular Rhythm GI/Abdominal Exam: Normal Bowel Sounds, Soft, No Organomegaly, No Distention, No Abnormal Bruit, No Mass, Tender (left lower abdomen). No: Guarding, Rigid, Rebound (Male) Exam: Deferred Back Exam: Normal Inspection, Full Range of Motion Extremities: Normal Inspection, Normal Range of Motion, Non-Tender, No Pedal Edema, Normal Capillary Refill Peripheral Pulses: 3+: Posterior Tibial (L), Posterior Tibial (R), Dorsalis Pedis (L), Dorsalis Pedis (R) Skin: Warm, Dry, Intact Neurological: No New Focal Deficit Psy/Mental Status: Alert, Normal Affect, Normal Mood, Withdrawal Symptoms, Other (Mild-moderate hand tremors). No: Anxious, Agitated, Suicidal Ideation, Hallucinations - Problem List Review Problem List Initiated/Reviewed/Updated: Yes - My Orders Last 24 Hours: My Active Orders 04/27/17 00:49 CIWAA Assessment [RC] Q1H Cardiac Monitoring [RC] CONTINUOUS Height and Weight [RC] 04 Intake and Output [RC] 04,16 Notify Provider [RC] PRN Oxygen Therapy [RC] PRN Pulse Oximetry [RC] PRN Up With Assistance [RC] ASDIRECTED Up ad [place]te [RC] ASDIRECTED VTE/DVT Education [RC] , Vital Signs [RC] Q4HR Acetaminophen [Tylenol] 650 mg PO Q4H PRN Acetaminophen/HYDROcodone [Gypsum 325-5 MG] 1 tab PO Q4H PRN Albuterol/Ipratropium [DuoNeb 3.0-0.5 MG/3 ML] 3 ml NEB Q4H PRN Bisacodyl [Dulcolax] 5 mg PO DAILY PRN Docusate Sodium [Colace] 100 mg PO BID PRN Docusate Sodium/Sennosides [Senna Plus] 1 tab PO BID PRN Ondansetron [Zofran] 4 mg IV Q4H PRN Polyethylene Glycol 3350 [MiraLAX] 17 gm PO DAILY PRN Promethazine [Phenergan] 12.5 mg Sodium Chloride 0.9% [Normal Saline] 50 ml IV Q6H Resuscitation Status Routine 04/27/17 00:51 RT Aerosol Therapy [RC] ASDIRECTED 04/27/17 00:52 Consult to Case Management [CONS] Routine Consult to Cosmetics Supervisor [CONS] Routine Consult to Spiritual Care [CONS] Routine cloNIDine [Catapres] 0.1 mg PO Q4H PRN Seizure Precautions [OM.PC] Routine 04/27/17 00:55 LORazepam [Ativan] 2 mg IVPUSH Q4H PRN LORazepam [Ativan] See Protocol IVPUSH Q4H PRN Metoprolol Tartrate [Lopressor] 5 mg IVPUSH Q4H PRN hydrALAZINE [Apresoline] 20 mg IVPUSH Q4H PRN 04/27/17 01:00 Magnesium Rep Pharmacy to Dose [Pharmacy to Dose - Magnesium Replacement] 1 dose .XX ASDIRECTED Potassium Rep Pharmacy to Dose [Pharmacy to Dose - Potassium Replacement] 1 dose .XX ASDIRECTED cloNIDine [Catapres-TTS 3] 0.3 mg TRDERM Q7D 04/27/17 01:31 Consult for Substance Abuse [CONS] Routine Consult to Physician [CONS] Routine 04/27/17 01:32 Notify Provider Consults [RC] ASDIRECTED 04/27/17 01:38 Consult to Dietary [Consult to Cut Off Machine Unloader] [CONS] Routine 04/27/17 05:25 LDH, ISOENZYMES [REF] Routine 04/27/17 07:00 Famotidine [Pepcid] 20 mg PO Q12H 04/27/17 07:36 HYDROmorphone [Dilaudid] 1 mg IVPUSH Q4H PRN 04/27/17 09:00 Folic Acid 1 mg PO DAILY Multivitamins,Therapeutic [Thera] 1 each PO DAILY Nicotine [Habitrol] 21 mg TRDERM DAILY Thiamine [Vitamin B-1] 100 mg PO DAILY Topiramate [Topamax] 25 mg PO BID 04/27/17 09:55 Patient Status [ADT] Routine 04/27/17 21:00 QUEtiapine [SEROquel] 50 mg PO BEDTIME 04/27/17 Dinner Nothing per Oral Now Diet [DIET] 04/28/17 05:11 BASIC METABOLIC PANEL,BMP [CHEM] AM CBC WITH AUTO DIFF [HEME] AM MAGNESIUM [CHEM] AM 04/29/17 05:11 BASIC METABOLIC PANEL,BMP [CHEM] AM CBC WITH AUTO DIFF [HEME] AM MAGNESIUM [CHEM] AM 04/30/17 05:11 BASIC METABOLIC PANEL,BMP [CHEM] AM CBC WITH AUTO DIFF [HEME] AM MAGNESIUM [CHEM] AM 05/01/17 05:11 BASIC METABOLIC PANEL,BMP [CHEM] AM CBC WITH AUTO DIFF [HEME] AM MAGNESIUM [CHEM] AM 05/02/17 05:11 BASIC METABOLIC PANEL,BMP [CHEM] AM MAGNESIUM [CHEM] AM - Plan Plan:: Assessment/Plan: Acute: ETOH Pancreatitis - Acute on Chronic - Lipase is 972; repeat in AM - Carries hx/o Chronic ETOH Use - Abdominal/Pelvis CT scan not done in ED - Nusrat's Criteria: Incomplete--> LDH still pending and Trig level (60 normal) - Continue Supportive Care, IV Fluids, and Pain Medications - Start clear liquid diet and advance as tolerated ETOH Use - Acute on Chronic - He drinks heavy with 1.75 L of whiskey/daily - VISHNU level on admission 0.11 - CIWA Protocol: Ativan/Seroquel/Topamax - Ativan PRN per Seizure Protocol - Folic Acid, MVI, and Thiamine - Advised [facility] Fatty Liver (CT scan 10/29/2016) - Likely 2/2 Chronic ETOH Use - Dietary consult - Lipid panel: benign - Advised [facility] Substance Abuse - Carries a hx/o Marijuana and Hashish Use - UDS pos for Opiates/Oxycodone, Marijuana, Amphetamine and Methamphetamines - SAC consult Resolved: S/p Dehydration - Clinically dehydrated: poor skin turgor and mouth and lips are dry - Spec gravity is 1.030-suggestive of volume depletion from emesis and poor oral intake - He is aggressively hydrating S/p Hypokalemia - K 3.2--> 3.9 - 2/2 GI loss - Replete and monitor Chronic: HTN Pancreatitis Depression Alcoholism Hx/o Foot Fracture Plan: He is clinically better Transfer to Med-Surg with Tele Routine AM labs Continue current treatment CIWA Protocol Seizure Precautions PRN Meds for Withdrawal Syndrome SW/CM for d/c planning SAC/Tele-Psych consultation Code Status:1
[2017-04-27] MEDS ORDERED: chlordiazePOXIDE 25 MG Cap PO ONE ×2 (12:05→12:10)
[2017-04-27] MEDS: FLUoxetine 20 MG Cap PO SCH (15:33)
[2017-04-27] MEDS: hydrALAZINE 20 MG/ML SDV IVPUSH PRN (18:11)
[2017-04-27] MEDS ORDERED: QUEtiapine 25 MG Tab PO SCH (21:00)
--- NOTE | 2017-04-27 21:41 | CONS ---
CONSULTING PHYSICIAN: Grady Upton MD DATE OF CONSULTATION: 04/27/2017 PSYCHIATRIC EVALUATION This is a 60-minute inpatient clinical event. IDENTIFICATION: The patient is a 36-year-old male who is admitted to the inpatient MICU at [facility] in [place], [place]. He is seen for psychiatric evaluation. CHIEF COMPLAINT: "Pancreas start hurting." HISTORY OF PRESENT ILLNESS: The patient is a 36-year-old male who reports that he was admitted "yesterday" on 04/26/2017 to the inpatient MICU secondary to pancreatic pain that had been going on "about a week" according to the patient. The patient states the pain got so bad that "a friend brought me here" to the ER where he was evaluated and subsequently admitted. The patient states he has been complicating his clinical situation by drinking "half a bottle a day" of hard liquor. The patient states he "was sober for about 6 weeks" after a previous admission in the fall of 2016. He states that he went to a treatment program. He was able to get sobriety. The patient wants to stop drinking, but he does not want to go back to treatment because "I got a work, and I do not have money to keep going back" into the chemical dependency treatment programs. The patient states he has gone to AA "a few times" and that seemed to help. The patient states he also was taking an antidepressant medication, "that helped a little." According to records, this medication appears to be Prozac. The patient is hoping to having this medication restarted, and he is also requesting something "for anxiety as he gets a little bad. That is why, "I drank, I want to go out, so I have to drink." The patient denies any suicidal or homicidal. He denies any psychotic, delusional, or paranoid. MEDICATIONS: At the time of admission; none. ALLERGIES: No known drug allergies. PAST MEDICAL HISTORY: 1. Pancreatitis. 2. History of withdrawal seizures in the past. 3. Status post right lower leg fracture back in 09/2016. REVIEW OF SYSTEMS: Aside from GI, neuro, and musculoskeletal, all other major organ systems are negative at this point in time for acute difficulties or complications. FAMILY PSYCHIATRIC AND CD HISTORY: The patient reports father and brother may have had a history of alcoholism. PAST PSYCHIATRIC AND CD HISTORY: The patient denies any previous psychiatric hospitalizations. He does report 2 to 3 chemical dependency treatments in the past. The patient has attended AA in the past. He denies any previous suicide attempts, self-injurious behaviors, eating disorder, or abuse issues while being raised. Past psychiatric diagnosis includes alcohol dependence and clinical depression. Past psychiatric medication includes Prozac, Seroquel, Topamax. SOCIAL HISTORY: The patient was born and raised in [place], [place]. He is the second of 3 siblings. He is working in the [employer]. He lives with his parents in [place], [place]. Never been , not involved in current relationships. Denies any children. Denies any prior service or current legal difficulties. He is Hindu, but he is stating that lately he has been more atheist in terms of his belief in God. He enjoys automotive and motorcycle, fishing, and snowmobiling. MENTAL STATUS EXAM: The patient is a 36-year-old soft-spoken white male, in no apparent distress. Speech is of increased latency of response, short duration of utterance. The patient is cognitively oriented x3. Psychomotor activity is within normal limits. There are no abnormal motor movements or tics observed. Gait and station are not observed. This patient is lying in bed for the purposes of psychiatric consult. Mood is tired. Affect is consistent with stated mood, but cooperative overall for the purposes of the inpatient consult. There is no behavioral or stated evidence of acute suicidal or homicidal ideation or acute psychotic, delusional, or paranoid symptoms. Thought processes are organized. There are no acute manic symptoms or loose associations evident. Judgment and insight appear unimpaired at this point in time and probably oriented to the severity of his alcohol dependence. Motivation for help appears poor to fair. VITALS: 138/88, 76, 14, 97.6 degrees. IMPRESSION: Abbot I: 1. Alcohol dependence, F10.20. 2. Major depressive disorder, F32.2. 3. Anxiety disorder, not otherwise specified, F41.9. Abbot II: None. Abbot III: 1. Pancreatitis. 2. History of withdrawal seizures. 3. Status post right lower leg fracture in 09/2016. Abbot IV: Severe. Abbot V: 55. PLAN: 1. Sobriety. 2. Begin restart Prozac 20 mg q.a.m. open mood. 3. Begin trial of Prozac 25 mg b.i.d. for mood stability and seizure prophylaxis and anxiety reduction. 4. Continue Seroquel 50 mg at bedtime as ordered when the patient arrives on unit to clarity of thought, anxiety reduction, sleep initiation and maintenance, and prevention of psychosis. 5. Ativan per [facility] protocol. 6. Librium p.r.n. 7. Folic acid supplementation. 8. Thiamine supplementation. 9. AA rep to visit with the patient. 10.Pastoral guidance. 11.We will continue follow up with the patient on as needed basis going forward while he remains on the inpatient medical unit. 12.We will follow up with the patient sooner if any complications in the interim. 13.We would recommend if the patient is unable to maintain sobriety on his own, that inpatient chemical dependency treatment options are pursued on his behalf; but for the moment, if the patient is able to be medically stabilized and he is mind to make an effort to stay sober on his own, recommend that he follow up with AA and Outpatient Psychiatry when he is medically stabilized and ready to be discharged back to the community. 14.Crisis plan is in place. ANAHI /[id number]
[2017-04-28] MEDS: Acetaminophen/HYDROcodone 325-5 MG Tab PO PRN ×3 (01:41→10:51)
[2017-04-28] MEDS: Sodium Chloride 0.9% 1,000 ML IV SCH ×3 (03:38→12:10)
[2017-04-28] MEDS: Famotidine 20 MG Tab PO SCH (06:14)
[2017-04-28] MEDS: Thiamine 100 MG Tab PO SCH (08:26)
[2017-04-28] MEDS: Topiramate 25 MG Tab PO SCH (08:27)
[2017-04-28] MEDS: Multivitamins,Therapeutic Tab PO SCH (08:27)
[2017-04-28] MEDS: FLUoxetine 20 MG Cap PO SCH (08:27)
[2017-04-28] MEDS: Nicotine 21 MG/24 Hr Patch TRDERM SCH (08:27)
[2017-04-28] MEDS: Folic Acid 1 MG Tab PO SCH (08:27)
[2017-04-28] MEDS: hydrALAZINE 20 MG/ML SDV IVPUSH PRN (08:35)
[2017-04-28] MEDS ORDERED: Magnesium Sulfate/Water 2 GM in Premix Bag 1 BAG IV ONE (09:00)
[2017-04-28] MEDS: Potassium Chloride 20 MEQ Tab.ER PO SCH ×2 (10:15→12:34)
[2017-04-28] MEDS: Ondansetron 4 MG/2 ML SDV IV PRN (10:52)
[2017-04-28] MEDS: LORazepam 2 MG/ML SDV IVPUSH PRN (12:49)
--- NOTE | 2017-04-28 12:56 | PCM.DCSUM1 ---
Discharge Summary - Hospital Course Brief History: This is a 36 yo white male with past medical hx/o HTN, ETOH Pancreatitis, Hx/o Concussions, Substance Abuse and Depression who comes in for evaluation of progressive abdominal pain localized to his left upper quadrant. His symptom started about 20:00 this evening. He describes his pain as constant w/o radiation. He denies any aggravating factors. He associates his symptom with nausea but w/o emesis. He denies any signs or symptoms of systemic infection. Patient took tylenol but received no relief from it. He was admitted for alcohol pancreatitis and acute intoxication. - Discharge Data Discharge Date: 04/28/17 Discharge Disposition: Home, Self-Care 01 Condition: Good - Discharge Diagnosis/Problem(s) (1) Alcoholic pancreatitis SNOMED Code(s): 280640478 ICD Code: K85.20 - ALCOHOL INDUCED ACUTE PANCREATITIS WITHOUT NECROSIS OR INFCT Status: Acute Qualifiers: Chronicity: acute Acute pancreatitis complication: no infection or necrosis Qualified Code(s): K85.20 - Alcohol induced acute pancreatitis without necrosis or infection (2) Alcohol abuse SNOMED Code(s): 78870705 ICD Code: F10.10 - ALCOHOL ABUSE, UNCOMPLICATED Status: Chronic (3) Alcohol intoxication SNOMED Code(s): 55959223 ICD Code: F10.929 - ALCOHOL USE, UNSPECIFIED WITH INTOXICATION, UNSPECIFIED Status: Resolved Qualifiers: Complication of substance-induced condition: uncomplicated Qualified Code(s ): F10.920 - Alcohol use, unspecified with intoxication, uncomplicated (4) Polysubstance abuse SNOMED Code(s): 641154304 ICD Code: F19.10 - OTHER PSYCHOACTIVE SUBSTANCE ABUSE, UNCOMPLICATED Status : Chronic (5) Dehydration SNOMED Code(s): 12355877 ICD Code: E86.0 - DEHYDRATION Status: Resolved (6) Hypokalemia SNOMED Code(s): 56329275 ICD Code: E87.6 - HYPOKALEMIA Status: Resolved (7) Hypomagnesemia SNOMED Code(s): 078628632 ICD Code: E83.42 - HYPOMAGNESEMIA Status: Resolved (8) Tobacco dependence due to cigarettes SNOMED Code(s): 05906472618974203 ICD Code: F17.210 - NICOTINE DEPENDENCE, CIGARETTES, UNCOMPLICATED Status: Acute - Patient Summary/Data Operative Procedure(s) Performed: None Complications: None Consults: Consultations 04/27/17 00:52 Consult to Case Management [CONS] Routine Consult to Flavoring Machine Operator [CONS] Routine Consult to Spiritual Care [CONS] Routine 04/27/17 01:31 Consult for Substance Abuse [CONS] Routine Consult to Physician [CONS] Routine 04/27/17 01:38 Consult to Dietary [Consult to Engineering Intern] [CONS] Routine 04/27/17 14:26 Consult to Spiritual Care [CONS] Routine Labs Pending at D/C: None Recommended Follow-up Testing/Procedures: None Planned Operative Procedure(s) after DC: None Hospital Course: Patient was primarily admitted for alcohol detoxification. He was known to the hospitalist team for multiple admissions related to alcohol and substance abuse. Upon admission, he was primarily provided supportive care and CIWA protocol. Slowly, he improved on this regimen. His hospital course was uncomplicated. He did come in on admission with alcohol induced pancreatitis but resolved quickly with conservative management. Dr. Upton was consulted for further evaluation and the patient was put on Prozac 20 mg by mouth daily. [facility] was consulted for substance abuse but patient refused specialist services. Once stable, he was then discharge to home with a prescription for Prozac 20 mg po to take daily. He was advised to follow-up with AA and with outpatient psychiatry after released. He was further advised to come back or seek immediate care should his symptoms persist or get worse. On the day of discharge, he was practically counseled on smoking cessation. He was also offered nicotine patch but he expressed no intention of quitting smoking anytime soon. - Patient Instructions Diet: Usual Diet as Tolerated Activity: As Tolerated Driving: May Drive Today Showering/Bathing: May Shower Notify Provider of: Fever, Increased Pain, Swelling and Redness, Nausea and/or Vomiting Other/Special Instructions: - Please take new medication as directed. - Resume routine home activity without any restrictions. - Follow up Outpatient Psych in 2-3 weeks. - Recommend AA after discharge. - Follow up with your doctor in 1 week - Discharge Plan Prescriptions/Med Rec: FLUoxetine HCl [Prozac] 20 mg PO DAILY #30 capsule Home Medications: Home Meds FLUoxetine HCl [Prozac] 20 mg PO DAILY #30 capsule 04/28/17 [Rx] Patient Handouts: Stimulant Use Disorder-Amphetamines, Cannabis Use Disorder, Acute Pancreatitis, [id number], Substance Use Disorder, Alcohol Intoxication, [id number]-fq-Lboi, Tobacco Use Disorder, Stimulant Use Disorder-Methamphetamines, Steps to Quit Smoking, Opioid Use Disorder Referrals: Grady Upton MD [Physician] - (Psychiatry. The clinic will call you to schedule this appointment. [facility].) - Discharge Summary/Plan Comment DC Time >30 min.: Yes (45 mins) Discharge Summary/Plan Comment: Discharge to Home - General Info Date of Service: 04/28/17 Admission Dx/Problem (Free Text: Admission Diagnosis/Problem Admission Diagnosis/Problem Pancreatitis Subjective Update: Follow Up Functional Status: Reports: Pain Controlled, Tolerating Diet, Ambulating, Urinating. Denies: New Symptoms - Review of Systems General: Denies: Fever, Weakness, Fatigue, Malaise, Chills HEENT: Reports: No Symptoms Pulmonary: Denies: Shortness of Breath Cardiovascular: Denies: Chest Pain, Palpitations, Dyspnea on Exertion, Lightheadedness Gastrointestinal: Denies: Abdominal Pain, Nausea, Vomiting Genitourinary: Reports: No Symptoms Musculoskeletal: Reports: No Symptoms Skin: Denies: Cyanosis, Mottled, Pallor, Diaphoresis Neurological: Denies: Confusion, Difficulty Walking, Weakness, Gait Disturbance Psychiatric: Denies: Depression, Anxiety, Agitation, Hallucinations Systems Review Comment: No significant overnight or acute issues. His pain is controlled. He is tolerating current diet. He refused SAC consultation. Has has no new complaints. His CIWA score is 1. - Patient Data Vitals - Most Recent: Last Vital Signs Temp 37.0 C 04/28/17 12:00 Pulse 81 04/28/17 07:55 Resp 18 04/28/17 12:00 BP 129/82 04/28/17 12:00 Pulse Ox 95 04/28/17 12:00 Weight - Most Recent: 68.039 kg I&O - Last 24 hours: Intake & Output 04/27/17 04/28/17 04/28/17 22:59 06:59 14:59 Intake Total 2347 3402 360 Output Total 300 1300 1350 Balance 2047 2102 -990 Lab Results - Last 24 hrs: Laboratory Results - last 24 hr 04/28/17 04/28/17 Range/Units 07:15 07:15 WBC 8.16 (4.23-9.07) K/mm3 RBC 4.12 L (4.63-6.08) M/mm3 Hgb 12.6 L (13.7-17.5) gm/L Hct 36.3 L (40.1-51.0) % MCV 88.1 (79.0-92.2) fl MCH 30.6 (25.7-32.2) pg MCHC 34.7 (32.2-35.5) g/dl RDW Std Deviation 43.1 (35.1-43.9) fL Plt Count 46 L (163-337) K/mm3 MPV 11.7 (9.4-12.3) fl Neut % (Auto) 75.2 H (34.0-67.9) % Lymph % (Auto) 13.7 L (21.8-53.1) % [place] % (Auto) 10.5 (5.3-12.2) % Eos % (Auto) 0.6 L (0.8-7.0) Baso % (Auto) 0.0 L (0.1-1.2) % Neut # (Auto) 6.13 H (1.78-5.38) K/mm3 Lymph # (Auto) 1.12 L (1.32-3.57) K/mm3 [place] # (Auto) 0.86 H (0.30-0.82) K/mm3 Eos # (Auto) 0.05 (0.04-0.54) K/mm3 Baso # (Auto) 0.00 L (0.01-0.08) K/mm3 Manual Slide Review Abnormal smear Sodium 136 (136-145) mEq/L Potassium 3.3 L (3.5-5.1) mEq/L Chloride 103 (98-107) mEq/L Carbon Dioxide 24 (21-32) mEq/L Anion Gap 12.3 (5-15) BUN 6 L (7-18) mg/dL Creatinine 0.7 (0.7-1.3) mg/dL Est Cr Clr Drug Dosing 129.35 mL/min Estimated GFR (MDRD) > 60 (>60) mL/min BUN/Creatinine Ratio 8.6 L (14-18) Glucose 97 (74-106) mg/dL Calcium 7.9 L (8.5-10.1) mg/dL Magnesium 1.4 L (1.8-2.4) mg/dl Lipase 723 H (73-393) U/L Med Orders - Current: Current Medications Acetaminophen (Tylenol) 650 mg PO Q4H PRN PRN Reason: Pain (Mild 1-3)/fever Hydrocodone Bitart/Acetaminophen ([place] 325-5 Mg) 1 tab PO Q4H PRN PRN Reason: Pain (moderate 4-6) Last Admin: 04/28/17 10:51 Dose: 1 tab Albuterol/Ipratropium (Duoneb 3.0-0.5 Mg/3 Ml) 3 ml NEB Q4H PRN PRN Reason: Shortness Of Breath/wheezing Bisacodyl (Dulcolax) 5 mg PO DAILY PRN PRN Reason: Constipation Clonidine HCl (Catapres) 0.1 mg PO Q4H PRN PRN Reason: Agitation Clonidine HCl (Catapres-Tts 3) 0.3 mg TRDERM Q7D [facility] Last Admin: 04/27/17 01:26 Dose: 0.3 mg Docusate Sodium (Colace) 100 mg PO BID PRN PRN Reason: Constipation Famotidine (Pepcid) 20 mg PO Q12H [facility] Last Admin: 04/28/17 06:14 Dose: 20 mg Fluoxetine HCl (Prozac) 20 mg PO DAILY [facility] Last Admin: 04/28/17 08:27 Dose: 20 mg Folic Acid (Folic Acid) 1 mg PO DAILY [facility] Stop: 04/29/17 09:01 Last Admin: 04/28/17 08:27 Dose: 1 mg Hydralazine HCl (Apresoline) 20 mg IVPUSH Q4H PRN PRN Reason: Hypertension Last Admin: 04/28/17 08:35 Dose: 20 mg Hydromorphone HCl (Dilaudid) 1 mg IVPUSH Q4H PRN PRN Reason: Pain (severe 7-10) Last Admin: 04/27/17 23:39 Dose: 1 mg Sodium Chloride (Normal Saline) 1,000 mls @ 250 mls/hr IV ASDIRECTED [facility] Last Admin: 04/28/17 12:10 Dose: 250 mls/hr Promethazine HCl 12.5 mg/ (Sodium Chloride) 50.5 mls @ 100 mls/hr IV Q6H PRN PRN Reason: Nausea/Vomiting Lorazepam (Ativan) 2 mg IVPUSH Q4H PRN PRN Reason: Seizures Lorazepam (Ativan) 0 mg IVPUSH Q4H PRN; Protocol PRN Reason: Withdrawal Symptoms Last Admin: 04/28/17 12:49 Dose: 1 mg Magnesium Sulfate (Pharmacy To Dose - Magnesium Replacement) 1 dose .XX ASDIRECTED [facility] Metoprolol Tartrate (Lopressor) 5 mg IVPUSH Q4H PRN PRN Reason: Tachycardia Multivitamins (Thera) 1 each PO DAILY [facility] Last Admin: 04/28/17 08:27 Dose: 1 each Nicotine (Habitrol) 21 mg TRDERM DAILY [facility] Last Admin: 04/28/17 08:27 Dose: 21 mg Ondansetron HCl (Zofran) 4 mg IV Q4H PRN PRN Reason: Nausea/Vomiting Last Admin: 04/28/17 10:52 Dose: 4 mg Polyethylene Glycol (Miralax) 17 gm PO DAILY PRN PRN Reason: Constipation Potassium Chloride (Pharmacy To Dose - Potassium Replacement) 1 dose .XX ASDIRECTED [facility] Potassium Chloride (Klor-Con M20) 40 meq PO Q4H [facility] Stop: 04/28/17 13:01 Last Admin: 04/28/17 12:34 Dose: 40 meq Quetiapine Fumarate (Seroquel) 50 mg PO BEDTIME [facility] Last Admin: 04/27/17 20:10 Dose: 50 mg Senna/Docusate Sodium (Senna Plus) 1 tab PO BID PRN PRN Reason: Constipation Thiamine HCl (Vitamin B-1) 100 mg PO DAILY [facility] Last Admin: 04/28/17 08:26 Dose: 100 mg Topiramate (Topamax) 25 mg PO BID [facility] Last Admin: 04/28/17 08:27 Dose: 25 mg Discontinued Medications Chlordiazepoxide HCl (Librium) 25 mg PO ONETIME ONE Stop: 04/27/17 12:06 Last Admin: 04/27/17 15:33 Dose: Not Given Chlordiazepoxide HCl (Librium) 50 mg PO ONETIME ONE Stop: 04/27/17 12:11 Last Admin: 04/27/17 12:40 Dose: 50 mg Hydromorphone HCl (Dilaudid) 0.5 mg IVPUSH ONETIME ONE Stop: 04/26/17 21:38 Last Admin: 04/26/17 21:47 Dose: 0.5 mg Hydromorphone HCl (Dilaudid) 1 mg IVPUSH Q4H PRN PRN Reason: Pain (severe 7-10) Hydromorphone HCl (Dilaudid) Confirm Administered Dose 1 mg .ROUTE .STK-MED ONE Stop: 04/27/17 03:07 Last Admin: 04/27/17 03:06 Dose: 1 mg Magnesium Sulfate 2 gm/ Premix 50 mls @ 50 mls/hr IV ONETIME ONE Stop: 04/27/17 01:12 Last Admin: 04/27/17 00:18 Dose: 50 mls/hr Thiamine HCl 100 mg/ Sodium (Chloride) 51 mls @ 100 mls/hr IV ONETIME ONE Stop: 04/27/17 01:22 Last Admin: 04/27/17 01:27 Dose: 100 mls/hr Magnesium Sulfate (Magnesium Sulfate 2 Gm In Water 50 Ml) 50 mls @ 25 mls/hr IV Q2H [facility] Stop: 04/27/17 07:29 Magnesium Sulfate (Magnesium Sulfate 2 Gm In Water 50 Ml) 50 mls @ 25 mls/hr IV Q2H [facility] Stop: 04/27/17 06:59 Last Admin: 04/27/17 04:59 Dose: 25 mls/hr Magnesium Sulfate 2 gm/ Premix 50 mls @ 25 mls/hr IV ONETIME ONE Stop: 04/28/17 10:59 Last Admin: 04/28/17 10:15 Dose: 25 mls/hr Ondansetron HCl (Zofran) 4 mg IVPUSH ONETIME ONE Stop: 04/26/17 21:34 Last Admin: 04/26/17 21:47 Dose: 4 mg Pantoprazole Sodium (Protonix Iv) 40 mg .XX ONETIME ONE Stop: 04/27/17 01:31 Last Admin: 04/27/17 01:26 Dose: 40 mg Quetiapine Fumarate (Seroquel) 50 mg PO ONETIME ONE Stop: 04/27/17 00:58 Last Admin: 04/27/17 01:26 Dose: 50 mg Topiramate (Topamax) 25 mg PO BEDTIME ONE Stop: 04/27/17 00:58 Last Admin: 04/27/17 01:26 Dose: 25 mg - Exam General: Reports: Alert, Oriented, Cooperative, No Acute Distress HEENT: Reports: Pupils Equal, Pupils Reactive, EOMI, Mucous Membr. Moist/[place] Neck: Reports: Supple, Trachea Midline, No JVD, No Thyromegaly Lungs: Reports: Clear to Auscultation, Normal Respiratory Effort Cardiovascular: Reports: Regular Rate, Regular Rhythm, Tachycardia GI/Abdominal Exam: Normal Bowel Sounds, Non-Tender, No Organomegaly, No Distention, No Abnormal Bruit, No Mass (Male) Exam: Deferred Rectal (Males) Exam: Deferred Back Exam: Reports: Normal Inspection, Full Range of Motion Extremities: Normal Inspection, Normal Range of Motion, Non-Tender, No Pedal Edema, Normal Capillary Refill Skin: Reports: Warm, Dry, Intact Neurological: Reports: No New Focal Deficit Psy/Mental Status: Reports: Alert, Normal Affect, Normal Mood. Denies: Anxious , Agitated, Suicidal Ideation, Homicidal Ideation, Hallucinations, Withdrawal Symptoms *Q Meaningful Use (DIS) - VTE *Q VTE Criteria *Q: - Stroke *Q Stroke Criteria *Q: - AMI *Q AMI Criteria *Q:
--- NOTE | 2017-04-28 13:12 | PCM.SN ---
- Free Text/Narrative Note: Patient did not tolerate regular diet. He back to full liquid. He is not actively vomiting.
[2017-04-28 14:46] VITALS: BP 135/89
== END 2017-04-28 14:59 | disposition home or self-care (01) | DRG 439 ==
LOC: JD.ED 21:00 → JD.ICU 04-27
PROVIDERS: ADMIT Internal Medicine; ATTEND Internal Medicine
DX: K85.20 Alcohol induced acute pancreatitis without necrosis or infection (principal); F32.2 Major depressive disorder, single episode, severe without psychotic features; K86.0 Alcohol-induced chronic pancreatitis; F10.229 Alcohol dependence with intoxication, unspecified; Y90.5 Blood alcohol level of 100-119 mg/100 ml; K70.0 Alcoholic fatty liver; E86.0 Dehydration; E87.6 Hypokalemia; E83.42 Hypomagnesemia; F12.90 Cannabis use, unspecified, uncomplicated; I10 Essential (primary) hypertension; F41.9 Anxiety disorder, unspecified; F17.200 Nicotine dependence, unspecified, uncomplicated
CPT/HCPCS: 36415; 80048; 80053; 80061; 80306; 81001; 83615; 83625; 83690; 83735; 85025; 86140; 96361; 96374; 96375; 99285; 99285-25; A9270-GY; C9113; G0480; J0360; J1170; J2060; J2405; J3411; J3475; J7030; J7040; P9612

== ENCOUNTER 2018-05-25 15:23 | Inpatient (IN) | payer MEDICAID ==
[2018-05-25] MEDS ORDERED: Alum Hydrox/Mag Hydrox/Simeth 30 ML, Lidocaine 2% 15 ML PO ONE ×2 (16:31)
[2018-05-25] MEDS ORDERED: Pantoprazole 40 MG Tab.CR PO ONE (16:32)
[2018-05-25] MEDS ORDERED: Ondansetron 4 MG Tab.DIS PO ONE (16:33)
[2018-05-25] MEDS ORDERED: HYDROmorphone 1 MG/ML Syringe IVPUSH STA (16:47)
[2018-05-25] MEDS ORDERED: Pantoprazole 40 MG Vial IVPUSH ONE (16:47)
[2018-05-25] MEDS ORDERED: Ondansetron 4 MG/2 ML SDV IVPUSH ONE (16:47)
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
[2018-05-25] MEDS ORDERED: Sodium Chloride 0.9% 1,000 ML IV SCH (17:00)
[2018-05-25] MEDS ORDERED: Diatrizoate Meglumine/Diatrizoate Sodium 37% 120 ML Bottle PO ONE (18:04)
[2018-05-25] MEDS ORDERED: Iopamidol 755 Mg/ML 200 ML Bottle IV ONE (18:05)
--- NOTE | 2018-05-25 18:53 | CT ---
CT abdomen and pelvis Technique: Multiple axial sections were obtained from above the dome of the diaphragm inferiorly through the pubic symphysis. Intravenous and oral contrast was utilized. Delayed images were also obtained through the abdomen and pelvis. Comparison: Prior abdominal and pelvic CT study of 10/29/16. Findings: Visualized lung bases show nothing acute. Liver shows diffuse fatty infiltration. Spleen appears normal in size. Adrenal glands show no nodule. Gallbladder contains no calcified gallstones. Kidneys show symmetric contrast enhancement without hydronephrosis or mass. Aorta shows no aneurysm. No retroperitoneal adenopathy is seen. No pelvic mass or adenopathy is seen. Diffuse inflammatory change is noted around the pancreas. There is mild low density felt compatible with pancreatic edema within the body of the pancreas. Fluid is seen around the pancreas and extending into the paracolic gutters with a mild amount of focal fluid within the dependent portion of the pelvis. No bowel dilatation is seen. Delayed images shows contrast within both ureters as well as contrast within the bladder. Bone window settings appear within normal limits for the patient's age. Impression: 1. Fairly severe pancreatitis with diffuse surrounding inflammatory change, mild pancreatic edema as well as fluid around the pancreas extending into the paracolic gutter and into the dependent portion of the pelvis. 2. Prominent fatty infiltration within the liver. 3. No additional abnormality is appreciated on CT study of the abdomen and pelvis. Diagnostic code #3
[2018-05-25] MEDS ORDERED: HYDROmorphone 1 MG/ML Syringe IVPUSH ONE (19:39)
[2018-05-25] MEDS ORDERED: Thiamine 100 MG in Sodium Chloride 0.9% 50 ML IV ONE (20:00)
[2018-05-25] MEDS ORDERED: Scopolamine 1.5 MG Transdermal Patch TRDERM ONE (20:00)
[2018-05-25] MEDS ORDERED: LORazepam 2 MG/ML SDV IVPUSH PRN (20:04)
[2018-05-25] MEDS ORDERED: Albuterol/Ipratropium 3.0-0.5 MG/3 ML Neb Soln NEB PRN (20:05)
[2018-05-25] MEDS ORDERED: oxyCODONE 5 MG Tab PO PRN (20:05)
[2018-05-25] MEDS ORDERED: Haloperidol Lactate 5 MG/ML SDV IM PRN (20:05)
[2018-05-25] MEDS ORDERED: HYDROmorphone 1 MG/ML Syringe IVPUSH PRN (20:05)
[2018-05-25] MEDS ORDERED: Ibuprofen 600 MG Tab PO PRN (20:05)
[2018-05-25] MEDS ORDERED: Ondansetron 4 MG/2 ML SDV IV PRN (20:05)
[2018-05-25 20:38] LABS: HEMOGLOBIN A1C 5.3 % (4.50-6.20)
[2018-05-25] MEDS: Topiramate 25 MG Tab PO SCH (20:50)
[2018-05-25] MEDS: QUEtiapine 25 MG Tab PO SCH (20:50)
[2018-05-25] MEDS: Dextrose 5%-0.9% NaCl with KCl 1,000 ML IV SCH (20:54)
[2018-05-25] MEDS ORDERED: Pantoprazole 40 MG Vial IV SCH (21:00)
[2018-05-25] MEDS: Potassium Chloride 10 MEQ in Premix Bag 1 BAG IV SCH ×3 (21:36→23:47)
[2018-05-25] MEDS ORDERED: diphenhydrAMINE 50 MG/ML SDV IVPUSH ONE (21:43)
[2018-05-25] MEDS: chlordiazePOXIDE 25 MG Cap PO PRN (21:54)
[2018-05-25] MEDS: cloNIDine 0.1 MG Tab PO PRN (21:54)
[2018-05-25] MEDS: Nicotine 21 MG/24 Hr Patch TRDERM PRN (21:55)
[2018-05-25] MEDS ORDERED: chlordiazePOXIDE 25 MG Cap PO ONE (22:00)
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
[2018-05-26] MEDS: Potassium Chloride 10 MEQ in Premix Bag 1 BAG IV SCH ×3 (00:53→03:11)
[2018-05-26] MEDS: HYDROmorphone 1 MG/ML Syringe IVPUSH PRN ×5 (02:01→19:49)
[2018-05-26] MEDS: Dextrose 5%-0.9% NaCl with KCl 1,000 ML IV SCH ×4 (02:45→20:18)
[2018-05-26] MEDS: LORazepam 2 MG/ML SDV IV PRN ×4 (05:01→23:19)
[2018-05-26] MEDS: chlordiazePOXIDE 25 MG Cap PO PRN (06:27)
--- NOTE | 2018-05-26 08:28 | PCM.PN ---
- General Info Date of Service: 05/26/18 Admission Dx/Problem (Free Text): Admission Diagnosis/Problem Admission Diagnosis/Problem Pancreatitis Subjective Update: Follow Up Functional Status: Reports: Ambulating, Urinating. Denies: Pain Controlled, New Symptoms - Review of Systems General: Denies: Fever, Weakness, Fatigue, Malaise HEENT: Reports: No Symptoms Cardiovascular: Denies: Chest Pain, Dyspnea on Exertion, Lightheadedness Gastrointestinal: Reports: Abdominal Pain, Nausea. Denies: Vomiting Genitourinary: Reports: No Symptoms Musculoskeletal: Reports: No Symptoms Skin: Denies: Cyanosis, Jaundice, Mottled, Pallor, Diaphoresis, Bruising, Pruritis Neurological: Denies: Confusion, Dizziness, Headache, Seizure, Difficulty Walking, Weakness, Gait Disturbance Psychiatric: Denies: Depression, Anxiety, Agitation Systems Review Comment:: He rested pretty good last night and has bee voiding well. He still has considerable amount of pain. He is afebrile w/o leukocytosis. His CRP is 2.2 and Lipase is now 3801. - Patient Data Vitals - Most Recent: Last Vital Signs Temp 36.6 C 05/26/18 08:00 Pulse 82 05/26/18 08:00 Resp 16 05/26/18 08:00 BP 124/94 H 05/26/18 08:00 Pulse Ox 94 L 05/26/18 08:00 Weight - Most Recent: 71.758 kg I&O - Last 24 Hours: Intake & Output 05/25/18 05/26/18 05/26/18 22:59 06:59 14:59 Intake Total 1831 Output Total 200 Balance 1631 Lab Results Last 24 Hours: Laboratory Results - last 24 hr 05/25/18 05/25/18 05/25/18 Range/Units 16:00 16:00 16:00 WBC 6.17 (4.23-9.07) K/mm3 RBC 5.25 (4.63-6.08) M/mm3 Hgb 15.7 (13.7-17.5) gm/L Hct 45.7 (40.1-51.0) % MCV 87.0 (79.0-92.2) fl MCH 29.9 (25.7-32.2) pg MCHC 34.4 (32.2-35.5) g/dl RDW Std Deviation 43.4 (35.1-43.9) fL Plt Count 141 L (163-337) K/mm3 MPV 10.2 (9.4-12.3) fl Neutrophils % (Manual) 70 H (40-60) % Band Neutrophils % 0 (0-10) % Lymphocytes % (Manual) 26 (20-40) % Atypical Lymphs % 0 % Monocytes % (Manual) 4 (2-10) % Eosinophils % (Manual) 0 L (0.8-7.0) % Basophils % (Manual) 0 L (0.2-1.2) Platelet Estimate Adequate RBC Morph Comment Normal Sodium 141 (136-145) mEq/L Potassium 3.1 L (3.5-5.1) mEq/L Chloride 99 (98-107) mEq/L Carbon Dioxide 31 (21-32) mEq/L Anion Gap 14.1 (5-15) BUN 5 L (7-18) mg/dL Creatinine 0.8 (0.7-1.3) mg/dL Est Cr Clr Drug Dosing 127.34 mL/min Estimated GFR (MDRD) > 60 (>60) mL/min BUN/Creatinine Ratio 6.3 L (14-18) Glucose 109 H (74-106) mg/dL Hemoglobin A1c (4.50-6.20) % Calcium 8.6 (8.5-10.1) mg/dL Total Bilirubin 0.5 (0.2-1.0) mg/dL AST 138 H (15-37) U/L ALT 66 H (16-63) U/L Alkaline Phosphatase 120 H (46-116) U/L Lactate Dehydrogenase (85-227) U/L C-Reactive Protein (<1.0) mg/dL Total Protein 8.0 (6.4-8.2) g/dl Albumin 3.6 (3.4-5.0) g/dl Globulin 4.4 gm/dL Albumin/Globulin Ratio 0.8 L (1-2) Lipase 5831 H (73-393) U/L Urine Color (Yellow) Urine Appearance (Clear) Urine pH (5.0-8.0) Ur Specific [place] (1.005-1.030) Urine Protein (Negative) Urine Glucose (UA) (Negative) Urine Ketones (Negative) Urine Occult Blood (Negative) Urine Nitrite (Negative) Urine Bilirubin (Negative) Urine Urobilinogen (0.2-1.0) Ur Leukocyte Esterase (Negative) Urine RBC (0-5) /hpf Urine WBC (0-5) /hpf Ur Epithelial Cells (0-5) /hpf Urine Bacteria (FEW) /hpf Urine Mucus (FEW) /hpf Urine Opiates Screen (MNZGDO=041) Ur Buprenorphine Scrn (CUTOFF=10) Ur Oxycodone Screen (FZX8WB=187) Urine Methadone Screen (GYJ8QE=627) Ur Propoxyphene Screen (VJRWGI=965) Ur Barbiturates Screen (QOLQES=194) Ur Tricyclics Screen (ZEXXSF=928) Ur Phencyclidine Scrn (CUTOFF=25) Ur Amphetamine Screen (UYUYRZ=287) U Methamphetamines Scrn (WYLJPV=046) U Benzodiazepines Scrn (VLULHF=176) U Cocaine Metab Screen (NPMZKR=200) U Marijuana (THC) Screen (CUTOFF=50) Ethyl Alcohol 0.38 (0.00) gm% 05/25/18 05/25/18 05/25/18 Range/Units 16:00 16:00 19:30 WBC (4.23-9.07) K/mm3 RBC (4.63-6.08) M/mm3 Hgb (13.7-17.5) gm/L Hct (40.1-51.0) % MCV (79.0-92.2) fl MCH (25.7-32.2) pg MCHC (32.2-35.5) g/dl RDW Std Deviation (35.1-43.9) fL Plt Count (163-337) K/mm3 MPV (9.4-12.3) fl Neutrophils % (Manual) (40-60) % Band Neutrophils % (0-10) % Lymphocytes % (Manual) (20-40) % Atypical Lymphs % % Monocytes % (Manual) (2-10) % Eosinophils % (Manual) (0.8-7.0) % Basophils % (Manual) (0.2-1.2) Platelet Estimate RBC Morph Comment Sodium (136-145) mEq/L Potassium (3.5-5.1) mEq/L Chloride (98-107) mEq/L Carbon Dioxide (21-32) mEq/L Anion Gap (5-15) BUN (7-18) mg/dL Creatinine (0.7-1.3) mg/dL Est Cr Clr Drug Dosing mL/min Estimated GFR (MDRD) (>60) mL/min BUN/Creatinine Ratio (14-18) Glucose (74-106) mg/dL Hemoglobin A1c 5.30 (4.50-6.20) % Calcium (8.5-10.1) mg/dL Total Bilirubin (0.2-1.0) mg/dL AST (15-37) U/L ALT (16-63) U/L Alkaline Phosphatase (46-116) U/L Lactate Dehydrogenase 512 H (85-227) U/L C-Reactive Protein (<1.0) mg/dL Total Protein (6.4-8.2) g/dl Albumin (3.4-5.0) g/dl Globulin gm/dL Albumin/Globulin Ratio (1-2) Lipase (73-393) U/L Urine Color Yellow (Yellow) Urine Appearance Clear (Clear) Urine pH 6.0 (5.0-8.0) Ur Specific [place] 1.015 (1.005-1.030) Urine Protein 3+ H (Negative) Urine Glucose (UA) Negative (Negative) Urine Ketones Negative (Negative) Urine Occult Blood 2+ H (Negative) Urine Nitrite Negative (Negative) Urine Bilirubin Negative (Negative) Urine Urobilinogen 1.0 (0.2-1.0) Ur Leukocyte Esterase Negative (Negative) Urine RBC 5-10 H (0-5) /hpf Urine WBC 0-5 (0-5) /hpf Ur Epithelial Cells 0-5 (0-5) /hpf Urine Bacteria Occasional (FEW) /hpf Urine Mucus Few (FEW) /hpf Urine Opiates Screen (QSWCCK=954) Ur Buprenorphine Scrn (CUTOFF=10) Ur Oxycodone Screen (JXM9HN=891) Urine Methadone Screen (VOG5EK=009) Ur Propoxyphene Screen (EKMULU=135) Ur Barbiturates Screen (JTUGLM=238) Ur Tricyclics Screen (FVXZTL=536) Ur Phencyclidine Scrn (CUTOFF=25) Ur Amphetamine Screen (TMRVJL=099) U Methamphetamines Scrn (LZRLXH=939) U Benzodiazepines Scrn (NEXHWX=838) U Cocaine Metab Screen (ZFWILC=083) U Marijuana (THC) Screen (CUTOFF=50) Ethyl Alcohol (0.00) gm% 05/25/18 05/26/18 05/26/18 Range/Units 19:30 04:45 04:45 WBC 4.37 (4.23-9.07) K/mm3 RBC 4.10 L (4.63-6.08) M/mm3 Hgb 12.4 L (13.7-17.5) gm/L Hct 37.0 L (40.1-51.0) % MCV 90.2 (79.0-92.2) fl MCH 30.2 (25.7-32.2) pg MCHC 33.5 (32.2-35.5) g/dl RDW Std Deviation 44.5 H (35.1-43.9) fL Plt Count 96 L (163-337) K/mm3 MPV 10.6 (9.4-12.3) fl Neutrophils % (Manual) (40-60) % Band Neutrophils % (0-10) % Lymphocytes % (Manual) (20-40) % Atypical Lymphs % % Monocytes % (Manual) (2-10) % Eosinophils % (Manual) (0.8-7.0) % Basophils % (Manual) (0.2-1.2) Platelet Estimate RBC Morph Comment Sodium 139 (136-145) mEq/L Potassium 4.3 (3.5-5.1) mEq/L Chloride 103 (98-107) mEq/L Carbon Dioxide 26 (21-32) mEq/L Anion Gap 14.3 (5-15) BUN 6 L (7-18) mg/dL Creatinine 0.8 (0.7-1.3) mg/dL Est Cr Clr Drug Dosing 130.81 mL/min Estimated GFR (MDRD) > 60 (>60) mL/min BUN/Creatinine Ratio 7.5 L (14-18) Glucose 146 H (74-106) mg/dL Hemoglobin A1c (4.50-6.20) % Calcium 7.5 L (8.5-10.1) mg/dL Total Bilirubin 0.6 (0.2-1.0) mg/dL AST 91 H (15-37) U/L ALT 48 (16-63) U/L Alkaline Phosphatase 91 (46-116) U/L Lactate Dehydrogenase (85-227) U/L C-Reactive Protein 2.2 H* (<1.0) mg/dL Total Protein 6.6 (6.4-8.2) g/dl Albumin 2.9 L (3.4-5.0) g/dl Globulin 3.7 gm/dL Albumin/Globulin Ratio 0.8 L (1-2) Lipase 3801 H (73-393) U/L Urine Color (Yellow) Urine Appearance (Clear) Urine pH (5.0-8.0) Ur Specific [place] (1.005-1.030) Urine Protein (Negative) Urine Glucose (UA) (Negative) Urine Ketones (Negative) Urine Occult Blood (Negative) Urine Nitrite (Negative) Urine Bilirubin (Negative) Urine Urobilinogen (0.2-1.0) Ur Leukocyte Esterase (Negative) Urine RBC (0-5) /hpf Urine WBC (0-5) /hpf Ur Epithelial Cells (0-5) /hpf Urine Bacteria (FEW) /hpf Urine Mucus (FEW) /hpf Urine Opiates Screen Presumptive positive H (OZMSSF=120) Ur Buprenorphine Scrn Negative (CUTOFF=10) Ur Oxycodone Screen Negative (TLT3VD=413) Urine Methadone Screen Negative (AJP7BH=972) Ur Propoxyphene Screen Negative (XXFLEV=640) Ur Barbiturates Screen Negative (PZKPLS=145) Ur Tricyclics Screen Negative (GQPNHK=642) Ur Phencyclidine Scrn Negative (CUTOFF=25) Ur Amphetamine Screen Negative (XYOZRO=536) U Methamphetamines Scrn Negative (POKMRJ=191) U Benzodiazepines Scrn Negative (IQBUBT=415) U Cocaine Metab Screen Negative (IPNOWE=543) U Marijuana (THC) Screen Negative (CUTOFF=50) Ethyl Alcohol (0.00) gm% Med Orders - Current: Current Medications Albuterol/Ipratropium (Duoneb 3.0-0.5 Mg/3 Ml) 3 ml NEB Q4H PRN PRN Reason: Shortness Of Breath/wheezing Chlordiazepoxide HCl (Librium) 25 mg PO Q8H PRN PRN Reason: Withdrawal Symptoms Last Admin: 05/26/18 06:27 Dose: 25 mg Clonidine HCl (Catapres) 0.1 mg PO Q4H PRN PRN Reason: Agitation Last Admin: 05/25/18 21:54 Dose: 0.1 mg Folic Acid (Folic Acid) 1 mg PO DAILY BART Stop: 05/28/18 09:01 Haloperidol Lactate (Haldol) 2 mg IM Q4H PRN PRN Reason: Agitation Hydralazine HCl (Apresoline) 20 mg IVPUSH Q4H PRN PRN Reason: Hypertension Hydromorphone HCl (Dilaudid) 2 mg IVPUSH Q4H PRN PRN Reason: Pain (severe 7-10) Last Admin: 05/26/18 06:27 Dose: 2 mg Sodium Chloride (Normal Saline) 1,000 mls @ 999 mls/hr IV ASDIRECTED [facility] Last Admin: 05/25/18 17:03 Dose: 999 mls/hr Potassium Chloride/Dextrose/Sod Cl (D5 Ns With 20 Meq Kcl) 1,000 mls @ 175 mls/ hr IV ASDIRECTED [facility] Last Admin: 05/26/18 02:45 Dose: 175 mls/hr Ibuprofen (Motrin) 600 mg PO Q6H PRN PRN Reason: Pain (moderate 4-6) Lorazepam (Ativan) 2 mg IVPUSH Q4H PRN PRN Reason: Seizures Lorazepam (Ativan) 0 mg IV Q6H PRN; Protocol PRN Reason: Withdrawal Symptoms Last Admin: 05/26/18 05:01 Dose: 1 mg Magnesium Sulfate (Pharmacy To Dose - Magnesium Replacement) 0 dose .XX ASDIRECTED PRN PRN Reason: RX TO WATCH MAG Metoprolol Tartrate (Lopressor) 5 mg IVPUSH Q4H PRN PRN Reason: Tachycardia Miscellaneous Information (Remove Patch) 1 ea TRDERM DAILY PRN PRN Reason: NICOTINE DEPENDENCE Miscellaneous Information (Remove Patch) 1 ea TRDERM ONETIME ONE Stop: 05/28/18 20:01 Multivitamins (Thera) 1 each PO DAILY [facility] Stop: 05/29/18 09:01 Nicotine (Habitrol) 21 mg TRDERM DAILY PRN PRN Reason: Nicotine Dependence Last Admin: 05/25/18 21:55 Dose: 21 mg Ondansetron HCl (Zofran) 4 mg IV Q6H PRN PRN Reason: Nausea/Vomiting Oxycodone HCl (Oxycontin) 20 mg PO Q12HR [facility] Pantoprazole Sodium (Protonix Iv) 40 mg IV Q12HR [facility] Stop: 05/27/18 21:01 Potassium Chloride (Pharmacy To Dose - Potassium Replacement) 0 dose .XX ASDIRECTED PRN PRN Reason: RX TO WATCH K Quetiapine Fumarate (Seroquel) 50 mg PO BEDTIME [facility] Last Admin: 05/25/18 20:50 Dose: 50 mg Thiamine HCl (Vitamin B-1) 100 mg PO DAILY [facility] Topiramate (Topamax) 25 mg PO BID [facility] Last Admin: 05/25/18 20:50 Dose: 25 mg Discontinued Medications Chlordiazepoxide HCl (Librium) 25 mg PO ONETIME ONE Stop: 05/25/18 22:01 Last Admin: 05/25/18 22:07 Dose: 25 mg Al Hydroxide/Mg Hydroxide 30 (ml/ Lidocaine HCl 15 ml) 0 ml PO ONETIME ONE Stop: 05/25/18 16:32 Last Admin: 05/25/18 16:46 Dose: 45 ml Diatrizoate Meglum/Diatrizoate Sod (Gastrografin 37%) 90 ml PO ONETIME ONE Stop: 05/25/18 18:05 Last Admin: 05/25/18 18:16 Dose: 90 ml Diphenhydramine HCl (Benadryl) 50 mg IVPUSH ONETIME ONE Stop: 05/25/18 21:44 Last Admin: 05/25/18 21:54 Dose: 50 mg Hydromorphone HCl (Dilaudid) 1 mg IVPUSH ONETIME STA Stop: 05/25/18 16:48 Last Admin: 05/25/18 17:01 Dose: 1 mg Hydromorphone HCl (Dilaudid) 0.5 mg IVPUSH ONETIME ONE Stop: 05/25/18 19:40 Last Admin: 05/25/18 20:12 Dose: Not Given Hydromorphone HCl (Dilaudid) 1 mg IVPUSH Q4H PRN PRN Reason: Pain (severe 7-10) Last Admin: 05/25/18 21:46 Dose: 1 mg Thiamine HCl 100 mg/ Sodium (Chloride) 51 mls @ 100 mls/hr IV ONETIME ONE Stop: 05/25/18 20:30 Last Admin: 05/25/18 20:58 Dose: 100 mls/hr Potassium Chloride 10 meq/ (Premix) 100 mls @ 100 mls/hr IV Q1H [facility] Stop: 05/26/18 02:59 Last Admin: 05/26/18 03:11 Dose: 100 mls/hr Iopamidol (Isovue-370 (76%)) 100 ml IV ONETIME ONE Stop: 05/25/18 18:06 Last Admin: 05/25/18 18:18 Dose: 100 ml Ondansetron HCl (Zofran Odt) 4 mg PO ONETIME ONE Stop: 05/25/18 16:34 Last Admin: 05/25/18 17:01 Dose: Not Given Ondansetron HCl (Zofran) 4 mg IVPUSH ONETIME ONE Stop: 05/25/18 16:48 Last Admin: 05/25/18 16:59 Dose: 4 mg Oxycodone HCl (Oxycodone) 5 mg PO Q4H PRN PRN Reason: Pain (moderate 4-6) Last Admin: 05/25/18 20:51 Dose: 5 mg Pantoprazole Sodium (Protonix) 40 mg PO ONETIME ONE Stop: 05/25/18 16:33 Last Admin: 05/25/18 17:05 Dose: Not Given Pantoprazole Sodium (Protonix Iv) 40 mg IVPUSH ONETIME ONE Stop: 05/25/18 16:48 Last Admin: 05/25/18 17:03 Dose: 40 mg Pantoprazole Sodium (Protonix Iv) 40 mg IV Q12HR [facility] Scopolamine (Transderm-Scop) 1.5 mg TRDERM Q72H ONE Stop: 05/25/18 20:01 Last Admin: 05/25/18 20:49 Dose: 1.5 mg - Exam General: Alert, Oriented, Cooperative, Mild Distress HEENT: Pupils Equal, Pupils Reactive, EOMI, Mucous Membr. Moist/[place] Neck: Supple Lungs: Clear to Auscultation, Normal Respiratory Effort Cardiovascular: Regular Rate, Regular Rhythm GI/Abdominal Exam: Normal Bowel Sounds, Soft, No Organomegaly, No Distention, No Abnormal Bruit, No Mass, Guarding (mild on the left upper abdomen), Tender. No: Rigid, Rebound, Hepatomegaly, Splenomegaly (Male) Exam: Deferred Back Exam: Normal Inspection, Decreased Range of Motion Extremities: Normal Inspection, Normal Range of Motion, Non-Tender, No Pedal Edema, Normal Capillary Refill Peripheral Pulses: 2+: Dorsalis Pedis (L), Dorsalis Pedis (R) Skin: Warm, Dry, Intact Neurological: No New Focal Deficit Psy/Mental Status: Alert, Normal Affect, Normal Mood - Problem List Review Problem List Initiated/Reviewed/Updated: Yes - My Orders Last 24 Hours: My Active Orders 05/25/18 20:00 Nicotine [Habitrol] 21 mg TRDERM DAILY PRN Remove Patch 1 ea TRDERM DAILY PRN 05/25/18 20:04 LORazepam [Ativan] 2 mg IVPUSH Q4H PRN Metoprolol Tartrate [Lopressor] 5 mg IVPUSH Q4H PRN hydrALAZINE [Apresoline] 20 mg IVPUSH Q4H PRN 05/25/18 20:05 CIWAA Assessment [RC] Q1HR Cardiac Monitoring [RC] CONTINUOUS Height and Weight [RC] 04 Intake and Output [RC] 04,16 Notify Provider [RC] PRN Oxygen Therapy [RC] PRN Up With Assistance [RC] ASDIRECTED Up ad [place]te [RC] ASDIRECTED VTE/DVT Education [RC] , Vital Signs [RC] Q4HR Consult to Case Management/Fiscal Services Manager [CONS] Routine Consult to Physician [CONS] Routine Consult to Spiritual Care [CONS] Routine Albuterol/Ipratropium [DuoNeb 3.0-0.5 MG/3 ML] 3 ml NEB Q4H PRN Haloperidol Lactate [Haldol] 2 mg IM Q4H PRN Ibuprofen [Motrin] 600 mg PO Q6H PRN LORazepam [Ativan] See Protocol IV Q6H PRN Ondansetron [Zofran] 4 mg IV Q6H PRN chlordiazePOXIDE [Librium] 25 mg PO Q8H PRN cloNIDine [Catapres] 0.1 mg PO Q4H PRN Seizure Precautions [OM.PC] Routine Resuscitation Status Routine 05/25/18 20:06 Sequential Compression Device [OM.PC] Per Unit Routine 05/25/18 20:07 Antiembolic Devices [RC] PER UNIT ROUTINE 05/25/18 20:08 RT Aerosol Therapy [RC] ASDIRECTED 05/25/18 20:10 Notify Provider Consults [RC] ASDIRECTED 05/25/18 20:15 Consult for Substance Abuse [CONS] Routine Pharmacy to Dose - Magnesium R [Pharmacy to Dose - Magnesium Replacement] 0 dose .XX ASDIRECTED PRN Pharmacy to Dose - Potassium R [Pharmacy to Dose - Potassium Replacement] 0 dose .XX ASDIRECTED PRN 05/25/18 20:30 Dextrose 5%-0.9% NaCl with KCl [D5 NS with 20 mEq KCl] 1,000 ml IV ASDIRECTED 05/25/18 21:00 QUEtiapine [SEROquel] 50 mg PO BEDTIME Topiramate [Topamax] 25 mg PO BID 05/25/18 22:17 HYDROmorphone [Dilaudid] 2 mg IVPUSH Q4H PRN 05/25/18 Dinner Nothing per Oral Now Diet [DIET] 05/26/18 09:00 Folic Acid 1 mg PO DAILY Multivitamins,Therapeutic [Thera] 1 each PO DAILY Pantoprazole [ProTONIX IV] 40 mg IV Q12HR Thiamine [Vitamin B-1] 100 mg PO DAILY oxyCODONE ER [OxyCONTIN] 20 mg PO Q12HR 05/27/18 05:11 C-REACTIVE PROTEIN [CHEM] AM CBC W/O DIFF,HEMOGRAM [HEME] AM COMPREHENSIVE METABOLIC PN,CMP [CHEM] AM LIPASE [CHEM] AM 05/28/18 05:11 C-REACTIVE PROTEIN [CHEM] AM CBC W/O DIFF,HEMOGRAM [HEME] AM COMPREHENSIVE METABOLIC PN,CMP [CHEM] AM LIPASE [CHEM] AM 05/28/18 20:00 Remove Patch 1 ea TRDERM ONETIME ONE 05/29/18 05:11 C-REACTIVE PROTEIN [CHEM] AM CBC W/O DIFF,HEMOGRAM [HEME] AM COMPREHENSIVE METABOLIC PN,CMP [CHEM] AM - Plan Plan:: Assessment/Plan: Acute: Severe Pancreatitis - Carries a hx/o Chronic ETOH Use/Dependence - 2/2 ETOH Pancreatitis; drinks heavily - VISHNU level is 0.38 - Lipase is 5831-->3801 - CT scan report reads fairly severe pancreatitis with diffuse surrounding inflammatory change, mild pancreatic edema as well as fluid around the pancreas extending into the paracolic gutter and into the dependent portion of the pelvis. - MIKEY' Criteria: 1 = LHD level of 512-1% predicted Mortality; BISAP score is 0 (Patients with a BISAP Score of 0 had <1% risk of mortality) - IV fluids, pain control, anti-emesis and electrolytes supplement - Monitor urine output Fatty Liver - 2/2 Chronic ETOH Use - CT Scan report reads prominent fatty infiltration within the liver; seen on CT scan 10/29/2016 as well - NPO for now except ice chips, sips fo water and oral meds - Advised to quit drinking Transaminitis, Improved - AST/ALT= 2:1; 138:66-->91:48 - 2/2 ETOH Abuse - IV fluids and will avoid tylenol ETOH Intoxication - Carries a hx/o Chronic ETOH Use - Alcoholism is now causing serious health issues - VISHNU is 0.38 - Thiamine, Folic Acid, and MVI - SAC and Tele-psych consult - Advised to quit drinking Nicotine Dependence - Smokes Cigarettes: 2ppd - Nicotine patch daily Resolved: S/p Hypokalemia - K 3.1-->4.3 - 2/2 GI Loss - Replete and monitor Chronic: HTN ETOH Pancreatitis Alcoholism Depression Fatty Liver Substance Abuse: Oxycodone, Marijuana, Amphetamine and Meth Plan: He is a little better and hemodynamically stable Routine AM Labs Continue Aggressive Fluid resuscitation Monitor urine output CIWA Protocol PRN Meds for Withdrawal Syndrome GI PPx: PPI SW/CM for d/c planning Additional orders as above Code status:1
[2018-05-26] MEDS: Multivitamins,Therapeutic Tab PO SCH (09:20)
[2018-05-26] MEDS: Topiramate 25 MG Tab PO SCH ×2 (09:21→21:29)
[2018-05-26] MEDS: oxyCODONE ER 20 MG TAB.ER PO SCH ×2 (09:21→21:29)
[2018-05-26] MEDS: Thiamine 100 MG Tab PO SCH (09:21)
[2018-05-26] MEDS: Pantoprazole 40 MG Vial IV SCH ×2 (09:21→21:29)
[2018-05-26] MEDS: Folic Acid 1 MG Tab PO SCH (09:21)
[2018-05-26] MEDS: chlordiazePOXIDE 25 MG Cap PO SCH ×2 (13:25→21:28)
[2018-05-26] MEDS: cloNIDine 0.1 MG Tab PO PRN (17:04)
[2018-05-26] MEDS: QUEtiapine 25 MG Tab PO SCH (21:28)
[2018-05-26] MEDS: hydrALAZINE 20 MG/ML SDV IVPUSH PRN (21:29)
[2018-05-27] MEDS: cloNIDine 0.1 MG Tab PO PRN ×2 (01:08→21:42)
[2018-05-27] MEDS: HYDROmorphone 1 MG/ML Syringe IVPUSH PRN ×2 (01:09→13:12)
[2018-05-27] MEDS: Dextrose 5%-0.9% NaCl with KCl 1,000 ML IV SCH ×3 (02:19→15:27)
[2018-05-27] MEDS: chlordiazePOXIDE 25 MG Cap PO SCH ×3 (05:25→21:40)
[2018-05-27] MEDS: Topiramate 25 MG Tab PO SCH ×2 (08:20→21:40)
[2018-05-27] MEDS: Folic Acid 1 MG Tab PO SCH (08:20)
[2018-05-27] MEDS: Thiamine 100 MG Tab PO SCH (08:20)
[2018-05-27] MEDS: Multivitamins,Therapeutic Tab PO SCH (08:20)
[2018-05-27] MEDS: oxyCODONE ER 20 MG TAB.ER PO SCH ×2 (08:20→20:05)
[2018-05-27] MEDS: Pantoprazole 40 MG Vial IV SCH ×2 (08:21→21:40)
--- NOTE | 2018-05-27 09:02 | PCM.PN ---
- General Info Date of Service: 05/27/18 Admission Dx/Problem (Free Text): Admission Diagnosis/Problem Admission Diagnosis/Problem Pancreatitis Subjective Update: Follow Up Functional Status: Reports: Pain Controlled, Ambulating, Urinating. Denies: New Symptoms - Review of Systems General: Denies: Fever, Weakness, Fatigue, Malaise, Chills HEENT: Reports: No Symptoms. Denies: Visual Changes Cardiovascular: Denies: Chest Pain, Lightheadedness Gastrointestinal: Reports: Abdominal Pain. Denies: Constipation, Decreased Appetite, Nausea, Vomiting Genitourinary: Reports: No Symptoms Musculoskeletal: Reports: No Symptoms Skin: Denies: Cyanosis, Mottled, Pallor, Diaphoresis, Bruising Neurological: Denies: Confusion, Difficulty Walking, Weakness, Gait Disturbance Psychiatric: Denies: Depression, Anxiety, Agitation, Hallucinations Systems Review Comment:: No significant overnight or acute issues. He has no new complaints. - Patient Data Vitals - Most Recent: Last Vital Signs Temp 37.6 C 05/27/18 08:00 Pulse 94 05/27/18 08:00 Resp 16 05/27/18 08:00 BP 126/95 H 05/27/18 08:00 Pulse Ox 95 05/27/18 08:00 Weight - Most Recent: 74.797 kg I&O - Last 24 Hours: Intake & Output 05/26/18 05/27/18 05/27/18 22:59 06:59 14:59 Intake Total 2230 2459 Output Total 250 650 Balance 1980 1809 Lab Results Last 24 Hours: Laboratory Results - last 24 hr 05/27/18 05/27/18 Range/Units 05:20 05:20 WBC 3.53 L (4.23-9.07) K/mm3 RBC 3.61 L (4.63-6.08) M/mm3 Hgb 10.8 L (13.7-17.5) gm/L Hct 34.1 L (40.1-51.0) % MCV 94.5 H (79.0-92.2) fl MCH 29.9 (25.7-32.2) pg MCHC 31.7 L (32.2-35.5) g/dl RDW Std Deviation 47.3 H (35.1-43.9) fL Plt Count 78 L (163-337) K/mm3 MPV 12.0 (9.4-12.3) fl Sodium 137 (136-145) mEq/L Potassium 4.5 (3.5-5.1) mEq/L Chloride 103 (98-107) mEq/L Carbon Dioxide 27 (21-32) mEq/L Anion Gap 11.5 (5-15) BUN 8 (7-18) mg/dL Creatinine 0.7 (0.7-1.3) mg/dL Est Cr Clr Drug Dosing 155.83 mL/min Estimated GFR (MDRD) > 60 (>60) mL/min BUN/Creatinine Ratio 11.4 L (14-18) Glucose 91 (74-106) mg/dL Calcium 7.9 L (8.5-10.1) mg/dL Total Bilirubin 0.8 (0.2-1.0) mg/dL AST 62 H (15-37) U/L ALT 37 (16-63) U/L Alkaline Phosphatase 86 (46-116) U/L C-Reactive Protein 8.7 H* (<1.0) mg/dL Total Protein 6.2 L (6.4-8.2) g/dl Albumin 2.7 L (3.4-5.0) g/dl Globulin 3.5 gm/dL Albumin/Globulin Ratio 0.8 L (1-2) Lipase 1115 H (73-393) U/L Med Orders - Current: Current Medications Albuterol/Ipratropium (Duoneb 3.0-0.5 Mg/3 Ml) 3 ml NEB Q4H PRN PRN Reason: Shortness Of Breath/wheezing Chlordiazepoxide HCl (Librium) 25 mg PO Q8H [facility] Last Admin: 05/27/18 05:25 Dose: 25 mg Clonidine HCl (Catapres) 0.1 mg PO Q4H PRN PRN Reason: Agitation Last Admin: 05/27/18 01:08 Dose: 0.1 mg Folic Acid (Folic Acid) 1 mg PO DAILY [facility] Stop: 05/28/18 09:01 Last Admin: 05/27/18 08:20 Dose: 1 mg Haloperidol Lactate (Haldol) 2 mg IM Q4H PRN PRN Reason: Agitation Hydralazine HCl (Apresoline) 20 mg IVPUSH Q4H PRN PRN Reason: Hypertension Last Admin: 05/26/18 21:29 Dose: 20 mg Hydromorphone HCl (Dilaudid) 2 mg IVPUSH Q4H PRN PRN Reason: Pain (severe 7-10) Last Admin: 05/27/18 01:09 Dose: 2 mg Sodium Chloride (Normal Saline) 1,000 mls @ 999 mls/hr IV ASDIRECTED [facility] Last Admin: 05/25/18 17:03 Dose: 999 mls/hr Potassium Chloride/Dextrose/Sod Cl (D5 Ns With 20 Meq Kcl) 1,000 mls @ 175 mls/ hr IV ASDIRECTED [facility] Last Admin: 05/27/18 08:24 Dose: 175 mls/hr Ibuprofen (Motrin) 600 mg PO Q6H PRN PRN Reason: Pain (moderate 4-6) Lorazepam (Ativan) 2 mg IVPUSH Q4H PRN PRN Reason: Seizures Lorazepam (Ativan) 0 mg IV Q6H PRN; Protocol PRN Reason: Withdrawal Symptoms Last Admin: 05/26/18 23:19 Dose: 1 mg Magnesium Sulfate (Pharmacy To Dose - Magnesium Replacement) 0 dose .XX ASDIRECTED PRN PRN Reason: RX TO WATCH MAG Metoprolol Tartrate (Lopressor) 5 mg IVPUSH Q4H PRN PRN Reason: Tachycardia Miscellaneous Information (Remove Patch) 1 ea TRDERM DAILY PRN PRN Reason: NICOTINE DEPENDENCE Miscellaneous Information (Remove Patch) 1 ea TRDERM ONETIME ONE Stop: 05/28/18 20:01 Multivitamins (Thera) 1 each PO DAILY [facility] Stop: 05/29/18 09:01 Last Admin: 05/27/18 08:20 Dose: 1 each Nicotine (Habitrol) 21 mg TRDERM DAILY PRN PRN Reason: Nicotine Dependence Last Admin: 05/25/18 21:55 Dose: 21 mg Ondansetron HCl (Zofran) 4 mg IV Q6H PRN PRN Reason: Nausea/Vomiting Oxycodone HCl (Oxycontin) 20 mg PO Q12HR [facility] Last Admin: 05/27/18 08:20 Dose: 20 mg Pantoprazole Sodium (Protonix Iv) 40 mg IV Q12HR [facility] Stop: 05/27/18 21:01 Last Admin: 05/27/18 08:21 Dose: 40 mg Potassium Chloride (Pharmacy To Dose - Potassium Replacement) 0 dose .XX ASDIRECTED PRN PRN Reason: RX TO WATCH K Quetiapine Fumarate (Seroquel) 50 mg PO BEDTIME [facility] Last Admin: 05/26/18 21:28 Dose: 50 mg Thiamine HCl (Vitamin B-1) 100 mg PO DAILY [facility] Last Admin: 05/27/18 08:20 Dose: 100 mg Topiramate (Topamax) 25 mg PO BID [facility] Last Admin: 05/27/18 08:20 Dose: 25 mg Discontinued Medications Chlordiazepoxide HCl (Librium) 25 mg PO Q8H PRN PRN Reason: Withdrawal Symptoms Last Admin: 05/26/18 06:27 Dose: 25 mg Chlordiazepoxide HCl (Librium) 25 mg PO ONETIME ONE Stop: 05/25/18 22:01 Last Admin: 05/25/18 22:07 Dose: 25 mg Al Hydroxide/Mg Hydroxide 30 (ml/ Lidocaine HCl 15 ml) 0 ml PO ONETIME ONE Stop: 05/25/18 16:32 Last Admin: 05/25/18 16:46 Dose: 45 ml Diatrizoate Meglum/Diatrizoate Sod (Gastrografin 37%) 90 ml PO ONETIME ONE Stop: 05/25/18 18:05 Last Admin: 05/25/18 18:16 Dose: 90 ml Diphenhydramine HCl (Benadryl) 50 mg IVPUSH ONETIME ONE Stop: 05/25/18 21:44 Last Admin: 05/25/18 21:54 Dose: 50 mg Hydromorphone HCl (Dilaudid) 1 mg IVPUSH ONETIME [facility] Stop: 05/25/18 16:48 Last Admin: 05/25/18 17:01 Dose: 1 mg Hydromorphone HCl (Dilaudid) 0.5 mg IVPUSH ONETIME ONE Stop: 05/25/18 19:40 Last Admin: 05/25/18 20:12 Dose: Not Given Hydromorphone HCl (Dilaudid) 1 mg IVPUSH Q4H PRN PRN Reason: Pain (severe 7-10) Last Admin: 05/25/18 21:46 Dose: 1 mg Thiamine HCl 100 mg/ Sodium (Chloride) 51 mls @ 100 mls/hr IV ONETIME ONE Stop: 05/25/18 20:30 Last Admin: 05/25/18 20:58 Dose: 100 mls/hr Potassium Chloride 10 meq/ (Premix) 100 mls @ 100 mls/hr IV Q1H [facility] Stop: 05/26/18 02:59 Last Admin: 05/26/18 03:11 Dose: 100 mls/hr Iopamidol (Isovue-370 (76%)) 100 ml IV ONETIME ONE Stop: 05/25/18 18:06 Last Admin: 05/25/18 18:18 Dose: 100 ml Ondansetron HCl (Zofran Odt) 4 mg PO ONETIME ONE Stop: 05/25/18 16:34 Last Admin: 05/25/18 17:01 Dose: Not Given Ondansetron HCl (Zofran) 4 mg IVPUSH ONETIME ONE Stop: 05/25/18 16:48 Last Admin: 05/25/18 16:59 Dose: 4 mg Oxycodone HCl (Oxycodone) 5 mg PO Q4H PRN PRN Reason: Pain (moderate 4-6) Last Admin: 05/25/18 20:51 Dose: 5 mg Pantoprazole Sodium (Protonix) 40 mg PO ONETIME ONE Stop: 05/25/18 16:33 Last Admin: 05/25/18 17:05 Dose: Not Given Pantoprazole Sodium (Protonix Iv) 40 mg IVPUSH ONETIME ONE Stop: 05/25/18 16:48 Last Admin: 05/25/18 17:03 Dose: 40 mg Pantoprazole Sodium (Protonix Iv) 40 mg IV Q12HR [facility] Scopolamine (Transderm-Scop) 1.5 mg TRDERM Q72H ONE Stop: 05/25/18 20:01 Last Admin: 05/25/18 20:49 Dose: 1.5 mg - Exam General: Alert, Oriented, Cooperative, No Acute Distress HEENT: Pupils Equal, Pupils Reactive, Mucous Membr. Moist/[place] Neck: Supple Lungs: Clear to Auscultation, Normal Respiratory Effort Cardiovascular: Regular Rate, Regular Rhythm GI/Abdominal Exam: Normal Bowel Sounds, Soft, Non-Tender, No Organomegaly, No Distention, No Abnormal Bruit, No Mass. No: Guarding, Rigid, Rebound (Male) Exam: Deferred Back Exam: Normal Inspection, Decreased Range of Motion Extremities: Normal Inspection, Normal Range of Motion, Non-Tender, No Pedal Edema, Normal Capillary Refill Peripheral Pulses: 2+: Dorsalis Pedis (L), Dorsalis Pedis (R) Skin: Warm, Dry, Intact Neurological: No New Focal Deficit Psy/Mental Status: Alert, Normal Affect, Normal Mood - Problem List Review Problem List Initiated/Reviewed/Updated: Yes - My Orders Last 24 Hours: My Active Orders 05/26/18 09:00 Folic Acid 1 mg PO DAILY Multivitamins,Therapeutic [Thera] 1 each PO DAILY Pantoprazole [ProTONIX IV] 40 mg IV Q12HR Thiamine [Vitamin B-1] 100 mg PO DAILY oxyCODONE ER [OxyCONTIN] 20 mg PO Q12HR 05/26/18 14:00 chlordiazePOXIDE [Librium] 25 mg PO Q8H 05/28/18 05:11 C-REACTIVE PROTEIN [CHEM] AM CBC W/O DIFF,HEMOGRAM [HEME] AM COMPREHENSIVE METABOLIC PN,CMP [CHEM] AM LIPASE [CHEM] AM 05/28/18 20:00 Remove Patch 1 ea TRDERM ONETIME ONE 05/29/18 05:11 C-REACTIVE PROTEIN [CHEM] AM CBC W/O DIFF,HEMOGRAM [HEME] AM COMPREHENSIVE METABOLIC PN,CMP [CHEM] AM - Plan Plan:: Assessment/Plan: Acute: Severe Pancreatitis, Improving - Carries a hx/o Chronic ETOH Use/Dependence - 2/2 ETOH Pancreatitis; drinks heavily - VISHNU level is 0.38 - Lipase is 5831-->3801--> 1115 - CT scan report reads fairly severe pancreatitis with diffuse surrounding inflammatory change, mild pancreatic edema as well as fluid around the pancreas extending into the paracolic gutter and into the dependent portion of the pelvis. - MIKEY' Criteria: 1 = LHD level of 512-1% predicted Mortality; BISAP score is 0 (Patients with a BISAP Score of 0 had <1% risk of mortality) - IV fluids, pain control, anti-emesis and electrolytes supplement - Monitor urine output Fatty Liver - 2/2 Chronic ETOH Use - CT Scan report reads prominent fatty infiltration within the liver; seen on CT scan 10/29/2016 as well - NPO for now except ice chips, sips fo water and oral meds - Advised to quit drinking Transaminitis, Improved - AST/ALT= 2:1; 138:66-->91:48 - 2/2 ETOH Abuse - IV fluids and will avoid tylenol ETOH Intoxication - Carries a hx/o Chronic ETOH Use - Alcoholism is now causing serious health issues - VISHNU is 0.38 - Thiamine, Folic Acid, and MVI - SAC; refused servies - Awaiting bob-psych consult - Advised to quit drinking Nicotine Dependence - Smokes Cigarettes: 2ppd - Nicotine patch daily Resolved: S/p Hypokalemia - K 3.1-->4.3 - 2/2 GI Loss - Replete and monitor Chronic: HTN ETOH Pancreatitis Alcoholism Depression Fatty Liver Substance Abuse: Oxycodone, Marijuana, Amphetamine and Meth Plan: He is clinically and hemodynamically much better today Continue current treatment Change Dilaudid dose and frequency Routine AM Labs CIWA Protocol May start diet in AM PRN Meds for Withdrawal Syndrome GI PPx: PPI SW/CM for d/c planning Additional orders as above Code status:1
[2018-05-27] MEDS: LORazepam 2 MG/ML SDV IV PRN ×2 (16:06→23:16)
[2018-05-27] MEDS: QUEtiapine 25 MG Tab PO SCH (21:40)
[2018-05-27] MEDS: Nicotine 21 MG/24 Hr Patch TRDERM PRN (21:42)
[2018-05-28] MEDS: LORazepam 2 MG/ML SDV IV PRN ×13 (00:16→23:40)
[2018-05-28] MEDS ORDERED: LORazepam 2 MG/ML SDV ONE (00:39)
[2018-05-28] MEDS ORDERED: LORazepam 2 MG/ML SDV IVPUSH ONE (00:40)
[2018-05-28] MEDS ORDERED: Haloperidol Lactate 5 MG/ML SDV IM PRN (00:59)
[2018-05-28] MEDS: Dextrose 5%-0.9% NaCl with KCl 1,000 ML IV SCH (01:57)
[2018-05-28] MEDS ORDERED: cloNIDine 0.3 MG/Day Transdermal Patch TRDERM SCH (03:00)
[2018-05-28] MEDS: hydrALAZINE 20 MG/ML SDV IVPUSH PRN ×2 (04:09→14:59)
[2018-05-28] MEDS: chlordiazePOXIDE 25 MG Cap PO SCH (05:02)
[2018-05-28] MEDS: HYDROmorphone 1 MG/ML Syringe IVPUSH PRN (05:48)
[2018-05-28] MEDS: Magnesium Sulfate/Water 4 GM in Premix Bag 1 BAG IV SCH ×2 (07:47→11:41)
[2018-05-28] MEDS: Multivitamins,Therapeutic Tab PO SCH (07:59)
[2018-05-28] MEDS: Pantoprazole 40 MG Tab.CR PO SCH ×2 (07:59→20:34)
[2018-05-28] MEDS: Topiramate 25 MG Tab PO SCH ×2 (07:59→20:34)
[2018-05-28] MEDS: Thiamine 100 MG Tab PO SCH (07:59)
[2018-05-28] MEDS: Folic Acid 1 MG Tab PO SCH (08:00)
[2018-05-28] MEDS: oxyCODONE ER 20 MG TAB.ER PO SCH (08:01)
--- NOTE | 2018-05-28 08:48 | PCM.PN ---
- General Info Date of Service: 05/28/18 Admission Dx/Problem (Free Text): Admission Diagnosis/Problem Admission Diagnosis/Problem Pancreatitis Subjective Update: Follow Up Functional Status: Reports: Pain Controlled, Ambulating, Urinating. Denies: New Symptoms - Review of Systems General: Denies: Fever, Chills HEENT: Reports: No Symptoms Pulmonary: Denies: No Symptoms, Shortness of Breath, Cough Cardiovascular: Denies: Chest Pain Gastrointestinal: Denies: Abdominal Pain, Nausea, Vomiting Genitourinary: Reports: No Symptoms Musculoskeletal: Reports: No Symptoms Skin: Denies: Cyanosis, Mottled, Pallor, Diaphoresis, Bruising Neurological: Reports: Gait Disturbance. Denies: Dizziness, Headache, Numbness , Seizure, Syncope, Weakness Psychiatric: Reports: Confusion, Anxiety, Other (restless and mumbles). Denies : Agitation, Hallucinations Systems Review Comment:: Had a little rough night. He was restless, anxious, confused, mumbles and grabbing things out in the air. He also urinated his beddings as well as all over the floor witnessed by me community music therapist hours. His CIWAA score this AM is 16. - Patient Data Vitals - Most Recent: Last Vital Signs Temp 37.0 C 05/28/18 08:00 Pulse 99 05/28/18 08:00 Resp 15 05/28/18 08:00 BP 127/91 H 05/28/18 08:00 Pulse Ox 95 05/28/18 08:00 Weight - Most Recent: 70.987 kg I&O - Last 24 Hours: Intake & Output 05/27/18 05/28/18 05/28/18 22:59 06:59 14:59 Intake Total 1584 1146 Output Total 1000 550 Balance 584 596 Lab Results Last 24 Hours: Laboratory Results - last 24 hr 05/28/18 05/28/18 Range/Units 05:31 05:31 WBC 6.38 (4.23-9.07) K/mm3 RBC 4.42 L (4.63-6.08) M/mm3 Hgb 13.1 L (13.7-17.5) gm/L Hct 39.1 L (40.1-51.0) % MCV 88.5 (79.0-92.2) fl MCH 29.6 (25.7-32.2) pg MCHC 33.5 (32.2-35.5) g/dl RDW Std Deviation 41.4 (35.1-43.9) fL Plt Count 89 L (163-337) K/mm3 MPV 12.5 H (9.4-12.3) fl Sodium 127 L (136-145) mEq/L Potassium 3.8 (3.5-5.1) mEq/L Chloride 94 L (98-107) mEq/L Carbon Dioxide 20 L (21-32) mEq/L Anion Gap 16.8 H (5-15) BUN 6 L (7-18) mg/dL Creatinine 0.8 (0.7-1.3) mg/dL Est Cr Clr Drug Dosing 129.40 mL/min Estimated GFR (MDRD) > 60 (>60) mL/min BUN/Creatinine Ratio 7.5 L (14-18) Glucose 99 (74-106) mg/dL Calcium 9.2 (8.5-10.1) mg/dL Magnesium 0.8 L (1.8-2.4) mg/dl Total Bilirubin 1.6 H (0.2-1.0) mg/dL AST 65 H (15-37) U/L ALT 37 (16-63) U/L Alkaline Phosphatase 109 (46-116) U/L C-Reactive Protein 11.7 H* (<1.0) mg/dL Total Protein 7.3 (6.4-8.2) g/dl Albumin 3.1 L (3.4-5.0) g/dl Globulin 4.2 gm/dL Albumin/Globulin Ratio 0.7 L (1-2) Lipase 548 H (73-393) U/L Med Orders - Current: Current Medications Albuterol/Ipratropium (Duoneb 3.0-0.5 Mg/3 Ml) 3 ml NEB Q4H PRN PRN Reason: Shortness Of Breath/wheezing Chlordiazepoxide HCl (Librium) 25 mg PO Q8H [facility] Last Admin: 05/28/18 05:02 Dose: 25 mg Clonidine HCl (Catapres) 0.1 mg PO Q4H PRN PRN Reason: Agitation Last Admin: 05/27/18 21:42 Dose: 0.1 mg Clonidine HCl (Catapres-Tts 3) 0.3 mg TRDERM Q7D [facility] Last Admin: 05/28/18 03:09 Dose: 0.3 mg Folic Acid (Folic Acid) 1 mg PO DAILY [facility] Stop: 05/28/18 09:01 Last Admin: 05/28/18 08:00 Dose: 1 mg Haloperidol Lactate (Haldol) 2 mg IM Q4H PRN PRN Reason: Withdrawal Symptoms Hydralazine HCl (Apresoline) 20 mg IVPUSH Q4H PRN PRN Reason: Hypertension Last Admin: 05/28/18 04:09 Dose: 20 mg Hydromorphone HCl (Dilaudid) 1 mg IVPUSH Q6H PRN PRN Reason: Pain (severe 7-10) Last Admin: 05/28/18 05:48 Dose: 1 mg Potassium Chloride/Dextrose/Sod Cl (D5 Ns With 20 Meq Kcl) 1,000 mls @ 100 mls/ hr IV ASDIRECTED [facility] Last Admin: 05/28/18 01:57 Dose: 100 mls/hr Magnesium Sulfate 4 gm/ Premix 100 mls @ 25 mls/hr IV Q4H [facility] Stop: 05/28/18 15:59 Last Admin: 05/28/18 07:47 Dose: 25 mls/hr Ibuprofen (Motrin) 600 mg PO Q6H PRN PRN Reason: Pain (moderate 4-6) Lorazepam (Ativan) 2 mg IVPUSH Q4H PRN PRN Reason: Seizures Lorazepam (Ativan) 1 - 3 mg IV ASDIRECTED PRN; Protocol PRN Reason: Withdrawal Symptoms Last Admin: 05/28/18 07:56 Dose: 2 mg Magnesium Sulfate (Pharmacy To Dose - Magnesium Replacement) 0 dose .XX ASDIRECTED PRN PRN Reason: RX TO WATCH MAG Metoprolol Tartrate (Lopressor) 5 mg IVPUSH Q4H PRN PRN Reason: Tachycardia Miscellaneous Information (Remove Patch) 1 ea TRDERM DAILY PRN PRN Reason: NICOTINE DEPENDENCE Last Admin: 05/27/18 18:31 Dose: 1 ea Miscellaneous Information (Remove Patch) 1 ea TRDERM ONETIME ONE Stop: 05/28/18 20:01 Miscellaneous Information (Remove Patch) 1 ea TRDERM ONETIME ONE Stop: 05/28/18 22:01 Miscellaneous Information (Remove Patch) 1 ea TRDERM Q7D [facility] Multivitamins (Thera) 1 each PO DAILY [facility] Stop: 05/29/18 09:01 Last Admin: 05/28/18 07:59 Dose: 1 each Nicotine (Habitrol) 21 mg TRDERM DAILY PRN PRN Reason: Nicotine Dependence Last Admin: 05/27/18 21:42 Dose: 21 mg Ondansetron HCl (Zofran) 4 mg IV Q6H PRN PRN Reason: Nausea/Vomiting Oxycodone HCl (Oxycontin) 20 mg PO Q12HR [facility] Last Admin: 05/28/18 08:01 Dose: Not Given Pantoprazole Sodium (Protonix) 40 mg PO BID [facility] Last Admin: 05/28/18 07:59 Dose: 40 mg Potassium Chloride (Pharmacy To Dose - Potassium Replacement) 0 dose .XX ASDIRECTED PRN PRN Reason: RX TO WATCH K Quetiapine Fumarate (Seroquel) 50 mg PO BEDTIME [facility] Last Admin: 05/27/18 21:40 Dose: 50 mg Thiamine HCl (Vitamin B-1) 100 mg PO DAILY [facility] Last Admin: 05/28/18 07:59 Dose: 100 mg Topiramate (Topamax) 25 mg PO BID [facility] Last Admin: 05/28/18 07:59 Dose: 25 mg Discontinued Medications Chlordiazepoxide HCl (Librium) 25 mg PO Q8H PRN PRN Reason: Withdrawal Symptoms Last Admin: 05/26/18 06:27 Dose: 25 mg Chlordiazepoxide HCl (Librium) 25 mg PO ONETIME ONE Stop: 05/25/18 22:01 Last Admin: 05/25/18 22:07 Dose: 25 mg Al Hydroxide/Mg Hydroxide 30 (ml/ Lidocaine HCl 15 ml) 0 ml PO ONETIME ONE Stop: 05/25/18 16:32 Last Admin: 05/25/18 16:46 Dose: 45 ml Diatrizoate Meglum/Diatrizoate Sod (Gastrografin 37%) 90 ml PO ONETIME ONE Stop: 05/25/18 18:05 Last Admin: 05/25/18 18:16 Dose: 90 ml Diphenhydramine HCl (Benadryl) 50 mg IVPUSH ONETIME ONE Stop: 05/25/18 21:44 Last Admin: 05/25/18 21:54 Dose: 50 mg Haloperidol Lactate (Haldol) 2 mg IM Q4H PRN PRN Reason: Agitation Hydromorphone HCl (Dilaudid) 1 mg IVPUSH ONETIME [facility] Stop: 05/25/18 16:48 Last Admin: 05/25/18 17:01 Dose: 1 mg Hydromorphone HCl (Dilaudid) 0.5 mg IVPUSH ONETIME ONE Stop: 05/25/18 19:40 Last Admin: 05/25/18 20:12 Dose: Not Given Hydromorphone HCl (Dilaudid) 1 mg IVPUSH Q4H PRN PRN Reason: Pain (severe 7-10) Last Admin: 05/25/18 21:46 Dose: 1 mg Hydromorphone HCl (Dilaudid) 2 mg IVPUSH Q4H PRN PRN Reason: Pain (severe 7-10) Last Admin: 05/27/18 01:09 Dose: 2 mg Sodium Chloride (Normal Saline) 1,000 mls @ 999 mls/hr IV ASDIRECTED [facility] Last Admin: 05/25/18 17:03 Dose: 999 mls/hr Thiamine HCl 100 mg/ Sodium (Chloride) 51 mls @ 100 mls/hr IV ONETIME ONE Stop: 05/25/18 20:30 Last Admin: 05/25/18 20:58 Dose: 100 mls/hr Potassium Chloride/Dextrose/Sod Cl (D5 Ns With 20 Meq Kcl) 1,000 mls @ 175 mls/ hr IV ASDIRECTED [facility] Last Admin: 05/27/18 08:24 Dose: 175 mls/hr Potassium Chloride 10 meq/ (Premix) 100 mls @ 100 mls/hr IV Q1H [facility] Stop: 05/26/18 02:59 Last Admin: 05/26/18 03:11 Dose: 100 mls/hr Iopamidol (Isovue-370 (76%)) 100 ml IV ONETIME ONE Stop: 05/25/18 18:06 Last Admin: 05/25/18 18:18 Dose: 100 ml Lorazepam (Ativan) 0 mg IV Q6H PRN; Protocol PRN Reason: Withdrawal Symptoms Last Admin: 05/27/18 23:16 Dose: 1 mg Lorazepam (Ativan) Confirm Administered Dose 2 mg .ROUTE .STK-MED ONE Stop: 05/28/18 00:40 Last Admin: 05/28/18 00:57 Dose: Not Given Lorazepam (Ativan) 2 mg IVPUSH ONETIME ONE Stop: 05/28/18 00:41 Last Admin: 05/28/18 00:40 Dose: 2 mg Ondansetron HCl (Zofran Odt) 4 mg PO ONETIME ONE Stop: 05/25/18 16:34 Last Admin: 05/25/18 17:01 Dose: Not Given Ondansetron HCl (Zofran) 4 mg IVPUSH ONETIME ONE Stop: 05/25/18 16:48 Last Admin: 05/25/18 16:59 Dose: 4 mg Oxycodone HCl (Oxycodone) 5 mg PO Q4H PRN PRN Reason: Pain (moderate 4-6) Last Admin: 05/25/18 20:51 Dose: 5 mg Pantoprazole Sodium (Protonix) 40 mg PO ONETIME ONE Stop: 05/25/18 16:33 Last Admin: 05/25/18 17:05 Dose: Not Given Pantoprazole Sodium (Protonix Iv) 40 mg IVPUSH ONETIME ONE Stop: 05/25/18 16:48 Last Admin: 05/25/18 17:03 Dose: 40 mg Pantoprazole Sodium (Protonix Iv) 40 mg IV Q12HR [facility] Pantoprazole Sodium (Protonix Iv) 40 mg IV Q12HR [facility] Stop: 05/27/18 21:01 Last Admin: 05/27/18 21:40 Dose: 40 mg Scopolamine (Transderm-Scop) 1.5 mg TRDERM Q72H ONE Stop: 05/25/18 20:01 Last Admin: 05/25/18 20:49 Dose: 1.5 mg - Exam General: Sedated HEENT: Pupils Equal, Pupils Reactive (but sluggish), Mucous Membr. Moist/[place], Other (lips with thickened oral secretions) Lungs: Normal Respiratory Effort, Decreased Breath Sounds Cardiovascular: Regular Rate, Regular Rhythm GI/Abdominal Exam: Normal Bowel Sounds, Soft, Non-Tender, No Organomegaly, No Distention, No Abnormal Bruit (Male) Exam: Other (indwelling boone catheter) Back Exam: Normal Inspection, Decreased Range of Motion Extremities: Normal Inspection, Normal Range of Motion, Non-Tender, No Pedal Edema, Normal Capillary Refill Skin: Warm, Dry, Intact Neurological: Other (deferred: he is not appropriate) Psy/Mental Status: Alert, Normal Affect, Normal Mood - Problem List Review Problem List Initiated/Reviewed/Updated: Yes - My Orders Last 24 Hours: My Active Orders 05/27/18 12:49 HYDROmorphone [Dilaudid] 1 mg IVPUSH Q6H PRN 05/27/18 13:45 Dextrose 5%-0.9% NaCl with KCl [D5 NS with 20 mEq KCl] 1,000 ml IV ASDIRECTED 05/27/18 23:28 LORazepam [Ativan] 1 - 3 mg IV ASDIRECTED PRN 05/28/18 00:59 Haloperidol Lactate [Haldol] 2 mg IM Q4H PRN 05/28/18 01:06 Patient Status [ADT] Routine 05/28/18 03:00 cloNIDine [Catapres-TTS 3] 0.3 mg TRDERM Q7D 05/28/18 08:00 Magnesium Sulfate/Water [Magnesium Sulfate 4 GM in Water 100 ML] 4 gm Premix Bag 1 bag IV Q4H 05/28/18 09:00 Pantoprazole [ProTONIX] 40 mg PO BID 05/28/18 20:00 Remove Patch 1 ea TRDERM ONETIME ONE 05/28/18 22:00 Remove Patch 1 ea TRDERM ONETIME ONE 05/28/18 Breakfast Clear Liquid Diet [DIET] 05/29/18 05:11 C-REACTIVE PROTEIN [CHEM] AM CBC W/O DIFF,HEMOGRAM [HEME] AM COMPREHENSIVE METABOLIC PN,CMP [CHEM] AM 06/04/18 03:00 Remove Patch 1 ea TRDERM Q7D - Plan Plan:: Assessment/Plan: Acute: Severe Pancreatitis, Continues to Improve - Carries a hx/o Chronic ETOH Use/Dependence - 2/2 ETOH Pancreatitis; drinks heavily - VISHNU level is 0.38 - Lipase is 5831-->3801-->1115-->548 - CT scan report reads fairly severe pancreatitis with diffuse surrounding inflammatory change, mild pancreatic edema as well as fluid around the pancreas extending into the paracolic gutter and into the dependent portion of the pelvis. - MIKEY' Criteria: 1 = LHD level of 512-1% predicted Mortality; BISAP score is 0 (Patients with a BISAP Score of 0 had <1% risk of mortality) - Continue IV fluids, pain control, anti-emesis and electrolytes supplement - May start clear liquid diet and advance to soft and regular (nonfatty/ nongreasy meal) as tolerated - Excellent urine output Fatty Liver - 2/2 Chronic ETOH Use - CT Scan report reads prominent fatty infiltration within the liver; seen on CT scan 10/29/2016 as well - NPO for now except ice chips, sips fo water and oral meds - Advised to quit drinking Transaminitis, Improved - AST/ALT= 2:1; 138:66-->91:48-->65:37 - 2/2 ETOH Abuse - IV fluids and will avoid acetaminophen ETOH Withdrawal Symptoms - Carries a hx/o Chronic ETOH Use - Alcoholism is now causing serious health issues - VISHNU is 0.38 - CIWA score 16-18 - Thiamine, Folic Acid, and MVI - SAC; refused services; we will try again once alert and awake - Awaiting Tele-psych consult - Advised to quit drinking Hyponatremia - NA 127 2/2 D5W infusion - No episode of seizures observed - Discontinue Dextrose and start NS 0.9% with 20mEq of IVF at 125 cc/hr - Repeat BMP later this afternoon Nicotine Dependence - Smokes Cigarettes: 2ppd - Nicotine patch daily Hypomagnesemia - Mg 1.6 - 2/2 NPO status - Replete and monitor Resolved: S/p Hypokalemia - K 3.1-->4.3 - 2/2 GI Loss - Replete and monitor Chronic: HTN ETOH Pancreatitis Alcoholism Depression Fatty Liver Substance Abuse: Oxycodone, Marijuana, Amphetamine and Meth Plan: He looks about the same as last night Continue current treatment Change Dilaudid dose to 0.5 mg IVP Q6H PRN Discontinue scheduled Qxycodone Routine AM Labs CIWA Protocol PRN Meds for Withdrawal Syndrome GI PPx: PPI SW/CM for d/c planning Additional orders as above Code status:1
[2018-05-28] MEDS ORDERED: chlordiazePOXIDE 25 MG Cap PO PRN ×2 (09:29→14:37)
[2018-05-28] MEDS ORDERED: HYDROmorphone 1 MG/ML Syringe IVPUSH PRN (09:30)
[2018-05-28] MEDS ORDERED: Acetaminophen 650 MG Supp RECTAL PRN (09:34)
[2018-05-28] MEDS: NS + KCl 20mEq/L 1,000 ML IV SCH ×2 (14:46→22:57)
[2018-05-28] MEDS: Haloperidol Lactate 5 MG/ML SDV IM PRN ×2 (16:48→23:29)
[2018-05-28] MEDS: cloNIDine 0.1 MG Tab PO PRN ×2 (16:48→21:37)
[2018-05-28] MEDS: chlordiazePOXIDE 25 MG Cap PO PRN ×2 (16:49→21:37)
[2018-05-28] MEDS: Metoprolol Tartrate 5 MG/5 ML SDV IVPUSH PRN (17:20)
[2018-05-28] MEDS: QUEtiapine 25 MG Tab PO SCH (20:33)
[2018-05-29] MEDS: LORazepam 2 MG/ML SDV IV PRN ×4 (01:43→09:46)
[2018-05-29] MEDS: Haloperidol Lactate 5 MG/ML SDV IM PRN (06:40)
[2018-05-29] MEDS: NS + KCl 20mEq/L 1,000 ML IV SCH ×3 (06:59→22:41)
--- NOTE | 2018-05-29 07:40 | PCM.PN ---
- General Info Date of Service: 05/29/18 Admission Dx/Problem (Free Text): Admission Diagnosis/Problem Admission Diagnosis/Problem Pancreatitis Subjective Update: Follow Up Functional Status: Reports: Pain Controlled, Urinating. Denies: New Symptoms - Review of Systems General: Denies: Fever, Chills HEENT: Reports: No Symptoms Pulmonary: Denies: Shortness of Breath Cardiovascular: Denies: Chest Pain, Dyspnea on Exertion, Lightheadedness Gastrointestinal: Denies: Abdominal Pain, Nausea, Vomiting Genitourinary: Reports: No Symptoms Musculoskeletal: Reports: No Symptoms Skin: Denies: Cyanosis, Mottled, Pallor, Diaphoresis, Bruising Neurological: Reports: Confusion. Denies: Weakness, Gait Disturbance Psychiatric: Reports: Anxiety, Agitation, Hallucinations, Other (agression and combativeness). Denies: Depression Systems Review Comment:: No significant overnight or acute issues. His CIWAA score last night was bet 13- 20. This morning he is at 20 or higher. His Na is now at 132 and Lipase is at 407. His Mg level remains low at 1.6. His vitals have considerably improved. - Patient Data Vitals - Most Recent: Last Vital Signs Temp 36.9 C 05/29/18 04:00 Pulse 89 05/29/18 00:00 Resp 20 05/29/18 04:00 BP 110/89 05/29/18 04:00 Pulse Ox 95 05/29/18 04:01 Weight - Most Recent: 69.218 kg I&O - Last 24 Hours: Intake & Output 05/28/18 05/29/18 05/29/18 22:59 06:59 14:59 Intake Total 1135 1665 Output Total 1285 630 Balance -150 1035 Lab Results Last 24 Hours: Laboratory Results - last 24 hr 05/28/18 05/29/18 05/29/18 Range/Units 20:09 05:40 05:40 WBC 5.21 (4.23-9.07) K/mm3 RBC 4.08 L (4.63-6.08) M/mm3 Hgb 12.3 L (13.7-17.5) gm/L Hct 36.6 L (40.1-51.0) % MCV 89.7 (79.0-92.2) fl MCH 30.1 (25.7-32.2) pg MCHC 33.6 (32.2-35.5) g/dl RDW Std Deviation 43.1 (35.1-43.9) fL Plt Count 114 L (163-337) K/mm3 MPV 11.9 (9.4-12.3) fl Sodium 129 L 132 L (136-145) mEq/L Potassium 4.1 4.2 (3.5-5.1) mEq/L Chloride 95 L 101 (98-107) mEq/L Carbon Dioxide 22 22 (21-32) mEq/L Anion Gap 16.1 H 13.2 (5-15) BUN 6 L 8 (7-18) mg/dL Creatinine 0.8 0.7 (0.7-1.3) mg/dL Est Cr Clr Drug Dosing 129.40 144.20 mL/min Estimated GFR (MDRD) > 60 > 60 (>60) mL/min BUN/Creatinine Ratio 7.5 L 11.4 L (14-18) Glucose 92 98 (74-106) mg/dL Calcium 9.0 8.8 (8.5-10.1) mg/dL Magnesium 2.0 (1.8-2.4) mg/dl Total Bilirubin 1.6 H (0.2-1.0) mg/dL AST 98 H (15-37) U/L ALT 42 (16-63) U/L Alkaline Phosphatase 120 H (46-116) U/L C-Reactive Protein 13.4 H* (<1.0) mg/dL Total Protein 7.0 (6.4-8.2) g/dl Albumin 2.8 L (3.4-5.0) g/dl Globulin 4.2 gm/dL Albumin/Globulin Ratio 0.7 L (1-2) Lipase (73-393) U/L 05/29/18 Range/Units 05:40 WBC (4.23-9.07) K/mm3 RBC (4.63-6.08) M/mm3 Hgb (13.7-17.5) gm/L Hct (40.1-51.0) % MCV (79.0-92.2) fl MCH (25.7-32.2) pg MCHC (32.2-35.5) g/dl RDW Std Deviation (35.1-43.9) fL Plt Count (163-337) K/mm3 MPV (9.4-12.3) fl Sodium (136-145) mEq/L Potassium (3.5-5.1) mEq/L Chloride (98-107) mEq/L Carbon Dioxide (21-32) mEq/L Anion Gap (5-15) BUN (7-18) mg/dL Creatinine (0.7-1.3) mg/dL Est Cr Clr Drug Dosing mL/min Estimated GFR (MDRD) (>60) mL/min BUN/Creatinine Ratio (14-18) Glucose (74-106) mg/dL Calcium (8.5-10.1) mg/dL Magnesium 1.9 (1.8-2.4) mg/dl Total Bilirubin (0.2-1.0) mg/dL AST (15-37) U/L ALT (16-63) U/L Alkaline Phosphatase (46-116) U/L C-Reactive Protein (<1.0) mg/dL Total Protein (6.4-8.2) g/dl Albumin (3.4-5.0) g/dl Globulin gm/dL Albumin/Globulin Ratio (1-2) Lipase 407 H (73-393) U/L Med Orders - Current: Current Medications Acetaminophen (Tylenol) 650 mg RECTAL Q6H PRN PRN Reason: Pain/Fever/DRISCOLL Acetaminophen (Tylenol) 650 mg PO Q6H PRN PRN Reason: Pain/Fever/DRISCOLL Albuterol/Ipratropium (Duoneb 3.0-0.5 Mg/3 Ml) 3 ml NEB Q4H PRN PRN Reason: Shortness Of Breath/wheezing Chlordiazepoxide HCl (Librium) 50 mg PO Q6H PRN PRN Reason: Withdrawal Symptoms Last Admin: 05/28/18 21:37 Dose: 50 mg Clonidine HCl (Catapres) 0.1 mg PO Q4H PRN PRN Reason: Agitation Last Admin: 05/28/18 21:37 Dose: 0.1 mg Clonidine HCl (Catapres-Tts 3) 0.3 mg TRDERM Q7D BART Last Admin: 05/28/18 03:09 Dose: 0.3 mg Haloperidol Lactate (Haldol) 5 mg IM Q4H PRN PRN Reason: Withdrawal Symptoms Last Admin: 05/29/18 06:40 Dose: 5 mg Hydralazine HCl (Apresoline) 20 mg IVPUSH Q4H PRN PRN Reason: Hypertension Last Admin: 05/28/18 14:59 Dose: 20 mg Hydromorphone HCl (Dilaudid) 0.5 mg IVPUSH Q6H PRN PRN Reason: Pain (severe 7-10) Last Admin: 05/29/18 03:23 Dose: 0.5 mg Potassium Chloride/Sodium Chloride (Normal Saline With 20 Meq Kcl) 1,000 mls @ 125 mls/hr IV ASDIRECTED BART Last Admin: 05/29/18 06:59 Dose: 125 mls/hr Lorazepam (Ativan) 2 mg IVPUSH Q4H PRN PRN Reason: Seizures Lorazepam (Ativan) 1 - 3 mg IV ASDIRECTED PRN; Protocol PRN Reason: Withdrawal Symptoms Last Admin: 05/29/18 05:04 Dose: 2 mg Magnesium Sulfate (Pharmacy To Dose - Magnesium Replacement) 0 dose .XX ASDIRECTED PRN PRN Reason: RX TO WATCH MAG Metoprolol Tartrate (Lopressor) 5 mg IVPUSH Q4H PRN PRN Reason: Tachycardia Last Admin: 05/28/18 17:20 Dose: 5 mg Miscellaneous Information (Remove Patch) 1 ea TRDERM DAILY PRN PRN Reason: NICOTINE DEPENDENCE Last Admin: 05/27/18 18:31 Dose: 1 ea Miscellaneous Information (Remove Patch) 1 ea TRDERM Q7D [facility] Multivitamins (Thera) 1 each PO DAILY [facility] Stop: 05/29/18 09:01 Last Admin: 05/28/18 07:59 Dose: 1 each Nicotine (Habitrol) 21 mg TRDERM DAILY PRN PRN Reason: Nicotine Dependence Last Admin: 05/27/18 21:42 Dose: 21 mg Ondansetron HCl (Zofran) 4 mg IV Q6H PRN PRN Reason: Nausea/Vomiting Pantoprazole Sodium (Protonix) 40 mg PO BID [facility] Last Admin: 05/28/18 20:34 Dose: 40 mg Potassium Chloride (Pharmacy To Dose - Potassium Replacement) 0 dose .XX ASDIRECTED PRN PRN Reason: RX TO WATCH K Quetiapine Fumarate (Seroquel) 50 mg PO BEDTIME [facility] Last Admin: 05/28/18 20:33 Dose: 50 mg Thiamine HCl (Vitamin B-1) 100 mg PO DAILY [facility] Last Admin: 05/28/18 07:59 Dose: 100 mg Topiramate (Topamax) 25 mg PO BID [facility] Last Admin: 05/28/18 20:34 Dose: 25 mg Discontinued Medications Chlordiazepoxide HCl (Librium) 25 mg PO Q8H PRN PRN Reason: Withdrawal Symptoms Last Admin: 05/26/18 06:27 Dose: 25 mg Chlordiazepoxide HCl (Librium) 25 mg PO ONETIME ONE Stop: 05/25/18 22:01 Last Admin: 05/25/18 22:07 Dose: 25 mg Chlordiazepoxide HCl (Librium) 25 mg PO Q8H [facility] Last Admin: 05/28/18 05:02 Dose: 25 mg Chlordiazepoxide HCl (Librium) 25 mg PO Q8H PRN PRN Reason: Withdrawal Symptoms Chlordiazepoxide HCl (Librium) 25 mg PO Q6H PRN PRN Reason: Withdrawal Symptoms Last Admin: 05/28/18 14:59 Dose: 25 mg Al Hydroxide/Mg Hydroxide 30 (ml/ Lidocaine HCl 15 ml) 0 ml PO ONETIME ONE Stop: 05/25/18 16:32 Last Admin: 05/25/18 16:46 Dose: 45 ml Diatrizoate Meglum/Diatrizoate Sod (Gastrografin 37%) 90 ml PO ONETIME ONE Stop: 05/25/18 18:05 Last Admin: 05/25/18 18:16 Dose: 90 ml Diphenhydramine HCl (Benadryl) 50 mg IVPUSH ONETIME ONE Stop: 05/25/18 21:44 Last Admin: 05/25/18 21:54 Dose: 50 mg Folic Acid (Folic Acid) 1 mg PO DAILY BART Stop: 05/28/18 09:01 Last Admin: 05/28/18 08:00 Dose: 1 mg Haloperidol Lactate (Haldol) 2 mg IM Q4H PRN PRN Reason: Agitation Haloperidol Lactate (Haldol) 2 mg IM Q4H PRN PRN Reason: Withdrawal Symptoms Last Admin: 05/28/18 15:26 Dose: 2 mg Hydromorphone HCl (Dilaudid) 1 mg IVPUSH ONETIME STA Stop: 05/25/18 16:48 Last Admin: 05/25/18 17:01 Dose: 1 mg Hydromorphone HCl (Dilaudid) 0.5 mg IVPUSH ONETIME ONE Stop: 05/25/18 19:40 Last Admin: 05/25/18 20:12 Dose: Not Given Hydromorphone HCl (Dilaudid) 1 mg IVPUSH Q4H PRN PRN Reason: Pain (severe 7-10) Last Admin: 05/25/18 21:46 Dose: 1 mg Hydromorphone HCl (Dilaudid) 2 mg IVPUSH Q4H PRN PRN Reason: Pain (severe 7-10) Last Admin: 05/27/18 01:09 Dose: 2 mg Hydromorphone HCl (Dilaudid) 1 mg IVPUSH Q6H PRN PRN Reason: Pain (severe 7-10) Last Admin: 05/28/18 05:48 Dose: 1 mg Sodium Chloride (Normal Saline) 1,000 mls @ 999 mls/hr IV [facility] Last Admin: 05/25/18 17:03 Dose: 999 mls/hr Thiamine HCl 100 mg/ Sodium (Chloride) 51 mls @ 100 mls/hr IV ONETIME ONE Stop: 05/25/18 20:30 Last Admin: 05/25/18 20:58 Dose: 100 mls/hr Potassium Chloride/Dextrose/Sod Cl (D5 Ns With 20 Meq Kcl) 1,000 mls @ 175 mls/ hr IV [facility] Last Admin: 05/27/18 08:24 Dose: 175 mls/hr Potassium Chloride 10 meq/ (Premix) 100 mls @ 100 mls/hr IV Q1H [facility] Stop: 05/26/18 02:59 Last Admin: 05/26/18 03:11 Dose: 100 mls/hr Potassium Chloride/Dextrose/Sod Cl (D5 Ns With 20 Meq Kcl) 1,000 mls @ 100 [facility]ls[facility] Last Admin: 05/28/18 01:57 Dose: 100 mls/hr Magnesium Sulfate 4 gm/ Premix 100 mls @ 25 mls/hr IV Q4H [facility] Stop: 05/28/18 15:59 Last Admin: 05/28/18 11:41 Dose: 25 mls/hr Ibuprofen (Motrin) 600 mg PO Q6H PRN PRN Reason: Pain (moderate 4-6) Iopamidol (Isovue-370 (76%)) 100 ml IV ONETIME ONE Stop: 05/25/18 18:06 Last Admin: 05/25/18 18:18 Dose: 100 ml Lorazepam (Ativan) 0 mg IV Q6H PRN; Protocol PRN Reason: Withdrawal Symptoms Last Admin: 05/27/18 23:16 Dose: 1 mg Lorazepam (Ativan) Confirm Administered Dose 2 mg .ROUTE .STK-MED ONE Stop: 05/28/18 00:40 Last Admin: 05/28/18 00:57 Dose: Not Given Lorazepam (Ativan) 2 mg IVPUSH ONETIME ONE Stop: 05/28/18 00:41 Last Admin: 05/28/18 00:40 Dose: 2 mg Miscellaneous Information (Remove Patch) 1 ea TRDERM ONETIME ONE Stop: 05/28/18 20:01 Last Admin: 05/28/18 20:35 Dose: 1 ea Miscellaneous Information (Remove Patch) 1 ea TRDERM ONETIME ONE Stop: 05/28/18 22:01 Last Admin: 05/28/18 21:33 Dose: 1 ea Ondansetron HCl (Zofran Odt) 4 mg PO ONETIME ONE Stop: 05/25/18 16:34 Last Admin: 05/25/18 17:01 Dose: Not Given Ondansetron HCl (Zofran) 4 mg IVPUSH ONETIME ONE Stop: 05/25/18 16:48 Last Admin: 05/25/18 16:59 Dose: 4 mg Oxycodone HCl (Oxycodone) 5 mg PO Q4H PRN PRN Reason: Pain (moderate 4-6) Last Admin: 05/25/18 20:51 Dose: 5 mg Oxycodone HCl (Oxycontin) 20 mg PO Q12HR BART Last Admin: 05/28/18 08:01 Dose: Not Given Pantoprazole Sodium (Protonix) 40 mg PO ONETIME ONE Stop: 05/25/18 16:33 Last Admin: 05/25/18 17:05 Dose: Not Given Pantoprazole Sodium (Protonix Iv) 40 mg IVPUSH ONETIME ONE Stop: 05/25/18 16:48 Last Admin: 05/25/18 17:03 Dose: 40 mg Pantoprazole Sodium (Protonix Iv) 40 mg IV Q12HR BART Pantoprazole Sodium (Protonix Iv) 40 mg IV Q12HR BART Stop: 05/27/18 21:01 Last Admin: 05/27/18 21:40 Dose: 40 mg Scopolamine (Transderm-Scop) 1.5 mg TRDERM Q72H ONE Stop: 05/25/18 20:01 Last Admin: 05/25/18 20:49 Dose: 1.5 mg - Exam General: Lethargic HEENT: Pupils Equal, Pupils Reactive. No: EOMI, Mucous Membr. Moist/[place] Neck: Supple Lungs: Normal Respiratory Effort, Decreased Breath Sounds Cardiovascular: Regular Rate, Regular Rhythm GI/Abdominal Exam: Normal Bowel Sounds, Soft, Non-Tender, No Organomegaly, No Distention, No Abnormal Bruit (Male) Exam: Other (indwelling boone catheter ) Back Exam: Normal Inspection Extremities: Normal Inspection, Normal Range of Motion, Non-Tender, No Pedal Edema, Normal Capillary Refill Peripheral Pulses: 2+: Dorsalis Pedis (L), Dorsalis Pedis (R) Skin: Warm, Dry, Intact Neurological: Other (deferred) Psy/Mental Status: Anxious, Agitated, Withdrawal Symptoms - Problem List Review Problem List Initiated/Reviewed/Updated: Yes - My Orders Last 24 Hours: My Active Orders 05/28/18 09:00 Insert [place]one Catheter [Insert Urinary Catheter] [OM.PC] Q24H Pantoprazole [ProTONIX] 40 mg PO BID 05/28/18 09:30 HYDROmorphone [Dilaudid] 0.5 mg IVPUSH Q6H PRN 05/28/18 09:34 Acetaminophen [Tylenol] 650 mg PO Q6H PRN Acetaminophen [Tylenol] 650 mg RECTAL Q6H PRN 05/28/18 09:45 NS + KCl 20mEq/L [Normal Saline with 20 mEq KCl] 1,000 ml IV ASDIRECTED 05/28/18 09:56 Urinary Catheter Assessment [RC] Q4HR 05/28/18 16:22 One To One Therapy [BH] Stat 05/28/18 16:33 Haloperidol Lactate [Haldol] 5 mg IM Q4H PRN chlordiazePOXIDE [Librium] 50 mg PO Q6H PRN 05/28/18 Breakfast Clear Liquid Diet [DIET] 06/04/18 03:00 Remove Patch 1 ea TRDERM Q7D - Plan Plan:: Assessment/Plan: Acute: ETOH Withdrawal Symptoms w/ Aggression and Combativeness - Carries a hx/o Chronic ETOH Use - Alcoholism is now causing serious health issues - VISHNU is 0.38 - CIWA score 13->20 - Thiamine, Folic Acid, and MVI - Midazolam drip per Protocol (see Manual Provided) - SAC; refused services; we will try again once alert and awake - Hold Tele-psych consult; he is not appropriate at this time - Advised to quit drinking - Discussed option for possible intubation if his aggression/combativeness persists; mom consented Hyponatremia, Improved - NA 127-->132 2/2 D5W infusion - No episode of seizures observed - Discontinue Dextrose and start NS 0.9% with 20mEq of IVF at 125 cc/hr - Repeat BMP later this afternoon Nicotine Dependence - Smokes Cigarettes: 2ppd - Nicotine patch daily Hypomagnesemia - Mg 1.6; same - 2/2 NPO status - Replete and monitor Resolved: S/p Hypokalemia - K 3.1-->4.3 - 2/2 GI Loss - Replete and monitor S/p Severe Pancreatitis - Carries a hx/o Chronic ETOH Use/Dependence - 2/2 ETOH Pancreatitis; drinks heavily - VISHNU level is 0.38 - Lipase is 5831-->3801-->1115-->548-->407 - CT scan report reads fairly severe pancreatitis with diffuse surrounding inflammatory change, mild pancreatic edema as well as fluid around the pancreas extending into the paracolic gutter and into the dependent portion of the pelvis. - MIKEY' Criteria: 1 = LHD level of 512-1% predicted Mortality; BISAP score is 0 (Patients with a BISAP Score of 0 had <1% risk of mortality) - Continue IV fluids, pain control, anti-emesis and electrolytes supplement - May start clear liquid diet and advance to soft and regular (nonfatty/ nongreasy meal) as tolerated - Excellent urine output S/p Transaminitis - AST/ALT= 2:1; 138:66-->91:48-->65:37 - 2/2 ETOH Abuse - IV fluids and will avoid acetaminophen Chronic: HTN ETOH Pancreatitis Alcoholism Depression Fatty Liver - 2/2 Chronic ETOH Use - CT Scan report reads prominent fatty infiltration within the liver; seen on CT scan 10/29/2016 as well - NPO for now except ice chips, sips fo water and oral meds - Advised to quit drinking Substance Abuse: Oxycodone, Marijuana, Amphetamine and Meth Plan: He looks worse to day than yesterday Midazolam drip for ETOH Withdrawal Routine AM Labs Continue CIWA Protocol GI PPx: PPI SW/CM for d/c planning Additional orders as above Code status:1 Spoke to his mother today and updated her about his diagnoses, morning labs, and treatment plans. Also obtained consent for intubation of needed
[2018-05-29] MEDS: cloNIDine 0.1 MG Tab PO PRN (08:24)
[2018-05-29] MEDS: Thiamine 100 MG Tab PO SCH (08:25)
[2018-05-29] MEDS: Topiramate 25 MG Tab PO SCH (08:25)
[2018-05-29] MEDS: Multivitamins,Therapeutic Tab PO SCH (08:26)
[2018-05-29] MEDS: chlordiazePOXIDE 25 MG Cap PO PRN (08:26)
[2018-05-29] MEDS: Pantoprazole 40 MG Tab.CR PO SCH (08:27)
[2018-05-29] MEDS ORDERED: Haloperidol Lactate 5 MG/ML SDV IM ONE (09:25)
[2018-05-29] MEDS ORDERED: Midazolam 1 MG/ML 2 ML SDV ONE (09:27)
--- NOTE | 2018-05-29 10:11 | PCM.SN ---
- Free Text/Narrative Note: Was notified to come over into his room to assist. Patient was agitated, tried crawling out of bed and aggressive. His CIWAA score was 20 or more. So we administered additional medications and attempts were made to reach his brother Jemal but w/o any success. We then tried calling his mother and we were able to get a hold of Matilde and advised her that she come over to see Yandel and to discuss further plans for treatment if he continues to get worse.
[2018-05-29] MEDS: Midazolam 50 MG in Sodium Chloride 0.9% 40 ML IV SCH ×2 (10:31→17:37)
[2018-05-29] MEDS ORDERED: Ketamine 500 mg/10 ML MDV IV ONE (15:23)
[2018-05-29] MEDS ORDERED: Rocuronium 50 MG/5 ML Vial IVPUSH ONE (15:25)
--- NOTE | 2018-05-29 15:42 | PCM.PRNOTE ---
- Free Text/Narrative Note: Endotracheal Intubation Date: 05/29/2018 Time: 1536 Indication: Severe Agitation, Restlessness, Combativeness, AMS and Alcohol Withdrawal Attending: Cari Ayala DO A time-out was completed verifying correct patient, procedure, site, positioning , and special equipment if applicable. The patient was placed in a flat position. Sedation was obtained using Versed drip as he was already on it to begin with. However, he was not easily sedated so Ketamine 50 mg IVP was added as well as Propofol drip. Additionally, Rocuronium 60 mg was administered for paralytics. . Once adequate sedation is achieved, he was ventilated using an ambu bag. MAC blade 3 was attempted initially but w/o any success. Then Dalton was utilized but he had so much oral secretions so we decided electronic glide scope with a MAC 4 blade and it produced an excellent view of his oropharynx. A Grade 1 view of the vocal cords was exposed. An 7.5 new zealander endotracheal tube was inserted and visualized going through the vocal cords. The stylette was removed. Colorimetric change was visualized on the CO2 meter. Breath sounds were heard in both lung rangel equally. The endotracheal tube was placed initially at 23 cm, measured at the lip but later adjusted to 24 cm. A chest x-ray was ordered to assess for pneumothorax and verify endotracheal tube placement.
--- NOTE | 2018-05-29 17:00 | CR ---
Chest: Portable view of the chest was obtained (4:07 PM). Comparison: No prior chest x-rays available. Tip of endotracheal tube lies at the mid level of the clavicles. Tip of nasogastric tube is noted within the stomach. Mild atelectasis is seen within the right lung base. Lungs otherwise are clear. Heart size and mediastinum are within normal limits. Impression: 1. Tip of endotracheal tube at the mid level of the clavicles. 2. Tip of nasogastric tube within the stomach. 3. Mild right basilar atelectasis. Diagnostic code #3
--- NOTE | 2018-05-29 17:02 | CR ---
Chest: Portable view of the chest was obtained (4:12 PM). Comparison: Previous chest x-ray performed earlier on same day (4:07 PM). Tip of endotracheal tube now lies at the lower level of clavicles. Nasogastric tube stable in position with tip lying within the stomach. Continuing right basilar atelectasis is noted. Heart size and mediastinum are stable. Bony structures are grossly intact. Impression: 1. Tip of endotracheal tube now lies at the lower level of clavicles. Stable nasogastric tube position. 2. Stable right basilar atelectasis. Diagnostic code #2
--- NOTE | 2018-05-29 17:02 | CR ---
Chest: Portable view of the chest was obtained (4:15 PM). Comparison: Previous chest x-rays performed on the same day (4:12 PM and 4:07 PM). Tip of endotracheal tube lies at the lower level of the clavicles. Nasogastric tube is seen with tip lying within the stomach. Right basilar atelectasis is noted. Lungs otherwise are clear. Bony structures are grossly intact. Impression: 1. Tip of endotracheal tube at the lower level of the clavicles. Tip of nasogastric tube is within the stomach. 2. Stable right basilar atelectasis. Diagnostic code #2
[2018-05-29] MEDS: Famotidine 20 MG/2 ML SDV IVPUSH SCH (20:53)
[2018-05-30] MEDS: hydrALAZINE 20 MG/ML SDV IVPUSH PRN (01:08)
[2018-05-30] MEDS: Midazolam 50 MG in Sodium Chloride 0.9% 40 ML IV SCH ×4 (02:17→19:33)
[2018-05-30] MEDS: Metoprolol Tartrate 5 MG/5 ML SDV IVPUSH PRN ×2 (04:15→08:07)
[2018-05-30] MEDS: NS + KCl 20mEq/L 1,000 ML IV SCH (07:04)
[2018-05-30] MEDS ORDERED: Piperacillin/Tazobactam 4.5 GM in Sodium Chloride 0.9% 100 ML IV ONE (07:30)
[2018-05-30] MEDS: Thiamine 100 MG Tab PO SCH (08:02)
[2018-05-30] MEDS: Famotidine 20 MG/2 ML SDV IVPUSH SCH ×2 (08:02→20:03)
--- NOTE | 2018-05-30 09:06 | CR ---
Chest: Portable view of the chest was obtained. Comparison: Prior chest x-ray of 05/29/18. Minimal atelectasis within the right lung base which shows improvement prior exam. Increasing density is noted within the left retrocardiac region from prior exam. Tip of endotracheal tube lies at the lower level of clavicles. Nasogastric tube remain stable in position with tip within stomach. Impression: 1. Increasing density within the left lung base within the retrocardiac region. Findings may represent pneumonia, aspiration or atelectasis. 2. Improving atelectasis within the right lung base. 3. Stable endotracheal tube and nasogastric tube. Diagnostic code #3
[2018-05-30] MEDS ORDERED: Magnesium Sulfate/Water 4 GM in Premix Bag 1 BAG IV ONE (09:15)
--- NOTE | 2018-05-30 09:16 | PCM.PN ---
- General Info Date of Service: 05/30/18 Admission Dx/Problem (Free Text): Admission Diagnosis/Problem Admission Diagnosis/Problem Pancreatitis Subjective Update: He woke up 1 AM and started to get agitated. He also spiked a temperature as high at 39.6 C. He was also tachypneic and tachycardic. His urine output is good. His cheat x-ay shows increased density within the left lung base. Functional Status: Reports: Pain Controlled, Urinating, New Symptoms - Review of Systems General: Reports: Fever, Chills Pulmonary: Reports: Other (Tachypneic) Cardiovascular: Reports: Other (Tachycardia) Gastrointestinal: Denies: Nausea, Vomiting Genitourinary: Reports: No Symptoms Skin: Denies: Mottled, Pallor, Diaphoresis Neurological: Denies: Seizure Psychiatric: Reports: Agitation Systems Review Comment:: Patient is sedated/intubated on mechanical ventilator - Patient Data Vitals - Most Recent: Last Vital Signs Temp 38.2 C H 05/30/18 08:06 Pulse 115 H 05/30/18 08:07 Resp 27 H 05/30/18 08:01 BP 106/58 L 05/30/18 08:07 Pulse Ox 94 L 05/30/18 08:24 Weight - Most Recent: 68.039 kg I&O - Last 24 Hours: Intake & Output 05/29/18 05/30/18 05/30/18 22:59 06:59 14:59 Intake Total 1349 1688 Output Total 450 875 185 Balance 899 813 -185 Lab Results Last 24 Hours: Laboratory Results - last 24 hr 05/29/18 05/29/18 05/29/18 Range/Units 10:57 17:13 18:35 Puncture Site Lt radial ABG pH 7.34 L (7.35-7.45) ABG pCO2 32.5 L (35.0-45.0) mmHg ABG pO2 71.0 L (80.0-100.0) mmHg ABG HCO3 17.0 L (22.0-26.0) meq/L ABG O2 Saturation 93.6 L (96.0-97.0) % ABG Base Excess -7.5 L (-2-2.0) Francisco Test A-a Gradient 113 mmHg O2 Delivery Device Ventilator Oxygen Flow Rate FiO2 0.00 L (21.00-100.00) % Tidal Volume 475.0 cc PEEP 5.0 cmH20 Pressure Support 0.0 cmH2O Sodium (136-145) mEq/L Potassium (3.5-5.1) mEq/L Chloride (98-107) mEq/L Carbon Dioxide (21-32) mEq/L Anion Gap (5-15) BUN (7-18) mg/dL Creatinine (0.7-1.3) mg/dL Est Cr Clr Drug Dosing mL/min Estimated GFR (MDRD) (>60) mL/min BUN/Creatinine Ratio (14-18) Glucose (74-106) mg/dL POC Glucose 96 109 H (70-105) mg/dL Calcium (8.5-10.1) mg/dL Magnesium (1.8-2.4) mg/dl Urine Color (Yellow) Urine Appearance (Clear) Urine pH (5.0-8.0) Ur Specific Clyman (1.005-1.030) Urine Protein (Negative) Urine Glucose (UA) (Negative) Urine Ketones (Negative) Urine Occult Blood (Negative) Urine Nitrite (Negative) Urine Bilirubin (Negative) Urine Urobilinogen (0.2-1.0) Ur Leukocyte Esterase (Negative) Urine RBC (0-5) /hpf Urine WBC (0-5) /hpf Ur Epithelial Cells Ur Squamous Epith Cells (0-5) /hpf Urine Bacteria (FEW) /hpf Hyaline Casts (0-5) /lpf Urine Mucus (FEW) /hpf 05/29/18 05/30/18 05/30/18 Range/Units 21:00 00:06 05:11 Puncture Site Lt radial Lt radial ABG pH 7.29 L 7.36 (7.35-7.45) ABG pCO2 36.6 29.0 L (35.0-45.0) mmHg ABG pO2 112.0 H 61.0 L (80.0-100.0) mmHg ABG HCO3 17.1 L 16.1 L (22.0-26.0) meq/L ABG O2 Saturation 98.6 H 93.3 L (96.0-97.0) % ABG Base Excess -8.3 L -7.8 L (-2-2.0) Francisco Test Positive A-a Gradient 99 126 mmHg O2 Delivery Device Ventilator Ventilator Oxygen Flow Rate Not Reportable Not Reportable FiO2 40.00 35.00 (21.00-100.00) % Tidal Volume 475.0 475.0 cc PEEP 5.0 5.0 cmH20 Pressure Support Not Reportable Not Reportable cmH2O Sodium (136-145) mEq/L Potassium (3.5-5.1) mEq/L Chloride (98-107) mEq/L Carbon Dioxide (21-32) mEq/L Anion Gap (5-15) BUN (7-18) mg/dL Creatinine (0.7-1.3) mg/dL Est Cr Clr Drug Dosing mL/min Estimated GFR (MDRD) (>60) mL/min BUN/Creatinine Ratio (14-18) Glucose (74-106) mg/dL POC Glucose 75 (70-105) mg/dL Calcium (8.5-10.1) mg/dL Magnesium (1.8-2.4) mg/dl Urine Color (Yellow) Urine Appearance (Clear) Urine pH (5.0-8.0) Ur Specific Clyman (1.005-1.030) Urine Protein (Negative) Urine Glucose (UA) (Negative) Urine Ketones (Negative) Urine Occult Blood (Negative) Urine Nitrite (Negative) Urine Bilirubin (Negative) Urine Urobilinogen (0.2-1.0) Ur Leukocyte Esterase (Negative) Urine RBC (0-5) /hpf Urine WBC (0-5) /hpf Ur Epithelial Cells Ur Squamous Epith Cells (0-5) /hpf Urine Bacteria (FEW) /hpf Hyaline Casts (0-5) /lpf Urine Mucus (FEW) /hpf 05/30/18 05/30/18 05/30/18 Range/Units 05:44 05:55 06:50 Puncture Site ABG pH (7.35-7.45) ABG pCO2 (35.0-45.0) mmHg ABG pO2 (80.0-100.0) mmHg ABG HCO3 (22.0-26.0) meq/L ABG O2 Saturation (96.0-97.0) % ABG Base Excess (-2-2.0) Francisco Test A-a Gradient mmHg O2 Delivery Device Oxygen Flow Rate FiO2 (21.00-100.00) % Tidal Volume cc PEEP cmH20 Pressure Support cmH2O Sodium 134 L (136-145) mEq/L Potassium 4.2 (3.5-5.1) mEq/L Chloride 102 (98-107) mEq/L Carbon Dioxide 17 L (21-32) mEq/L Anion Gap 19.2 H (5-15) BUN 10 (7-18) mg/dL Creatinine 0.7 (0.7-1.3) mg/dL Est Cr Clr Drug Dosing 141.75 mL/min Estimated GFR (MDRD) > 60 (>60) mL/min BUN/Creatinine Ratio 14.3 (14-18) Glucose 88 (74-106) mg/dL POC Glucose 79 (70-105) mg/dL Calcium 8.5 (8.5-10.1) mg/dL Magnesium 1.2 L (1.8-2.4) mg/dl Urine Color Niurka H (Yellow) Urine Appearance Clear (Clear) Urine pH 5.5 (5.0-8.0) Ur Specific Clyman 1.025 (1.005-1.030) Urine Protein Negative (Negative) Urine Glucose (UA) Negative (Negative) Urine Ketones 3+ H (Negative) Urine Occult Blood Negative (Negative) Urine Nitrite Negative (Negative) Urine Bilirubin 2+ H (Negative) Urine Urobilinogen 4.0 H (0.2-1.0) Ur Leukocyte Esterase Negative (Negative) Urine RBC 0-5 (0-5) /hpf Urine WBC Not seen (0-5) /hpf Ur Epithelial Cells Not Reportable Ur Squamous Epith Cells 0-5 (0-5) /hpf Urine Bacteria Few (FEW) /hpf Hyaline Casts 0-5 (0-5) /lpf Urine Mucus Moderate H (FEW) /hpf Med Orders - Current: Current Medications Acetaminophen (Tylenol) 650 mg RECTAL Q6H PRN PRN Reason: Pain/Fever/DRISCOLL Last Admin: 05/30/18 07:36 Dose: 650 mg Acetaminophen (Tylenol) 650 mg PO Q6H PRN PRN Reason: Pain/Fever/DRISCOLL Albuterol/Ipratropium (Duoneb 3.0-0.5 Mg/3 Ml) 3 ml NEB Q4H PRN PRN Reason: Shortness Of Breath/wheezing Clonidine HCl (Catapres) 0.1 mg PO Q4H PRN PRN Reason: Agitation Last Admin: 05/29/18 08:24 Dose: 0.1 mg Famotidine (Pepcid) 20 mg IVPUSH BID BART Last Admin: 05/30/18 08:02 Dose: 20 mg Hydralazine HCl (Apresoline) 20 mg IVPUSH Q4H PRN PRN Reason: Hypertension Last Admin: 05/30/18 01:08 Dose: 20 mg Hydromorphone HCl (Dilaudid) 2 mg IVPUSH Q6H PRN PRN Reason: Pain (severe 7-10) Potassium Chloride/Sodium Chloride (Normal Saline With 20 Meq Kcl) 1,000 mls @ 125 mls/hr IV ASDIRECTED BART Last Admin: 05/30/18 07:04 Dose: 125 mls/hr Midazolam HCl 50 mg/ Sodium (Chloride) 50 mls @ 0.5 mls/hr IV TITRATE BART; Protocol Last Titration: 05/30/18 06:09 Dose: 10 mg/hr, 10 mls/hr Propofol (Diprivan 100 Ml) 100 mls @ 2.077 mls/hr IV TITRATE BART; Protocol Last Titration: 05/30/18 08:30 Dose: 75 mcg/kg/min, 31.148 mls/hr Piperacillin Sod/Tazobactam (Sod 4.5 gm/ Sodium Chloride) 100 mls @ 25 mls/hr IV Q8H BART Magnesium Sulfate 4 gm/ Premix 50 mls @ 12.5 mls/hr IV ONETIME ONE Stop: 05/30/18 13:14 Magnesium Sulfate 2 gm/ Premix 50 mls @ 25 mls/hr IV ONETIME ONE Stop: 05/30/18 15:59 Levofloxacin/Dextrose 750 mg/ (Premix) 150 mls @ 100 mls/hr IV Q24H BART Lorazepam (Ativan) 2 mg IVPUSH Q4H PRN PRN Reason: Seizures Magnesium Sulfate (Pharmacy To Dose - Magnesium Replacement) 0 dose .XX ASDIRECTED PRN PRN Reason: RX TO WATCH MAG Metoprolol Tartrate (Lopressor) 5 mg IVPUSH Q4H PRN PRN Reason: Tachycardia Last Admin: 05/30/18 08:07 Dose: 5 mg Miscellaneous Information (Remove Patch) 1 ea TRDERM DAILY PRN PRN Reason: NICOTINE DEPENDENCE Last Admin: 05/27/18 18:31 Dose: 1 ea Miscellaneous Information (Remove Patch) 1 ea TRDERM Q7D BART Nicotine (Habitrol) 21 mg TRDERM DAILY PRN PRN Reason: Nicotine Dependence Last Admin: 05/27/18 21:42 Dose: 21 mg Ondansetron HCl (Zofran) 4 mg IV Q6H PRN PRN Reason: Nausea/Vomiting Potassium Chloride (Pharmacy To Dose - Potassium Replacement) 0 dose .XX ASDIRECTED PRN PRN Reason: RX TO WATCH K Thiamine HCl (Vitamin B-1) 100 mg PO DAILY [facility] Last Admin: 05/30/18 08:02 Dose: 100 mg Discontinued Medications Chlordiazepoxide HCl (Librium) 25 mg PO Q8H PRN PRN Reason: Withdrawal Symptoms Last Admin: 05/26/18 06:27 Dose: 25 mg Chlordiazepoxide HCl (Librium) 25 mg PO ONETIME ONE Stop: 05/25/18 22:01 Last Admin: 05/25/18 22:07 Dose: 25 mg Chlordiazepoxide HCl (Librium) 25 mg PO Q8H [facility] Last Admin: 05/28/18 05:02 Dose: 25 mg Chlordiazepoxide HCl (Librium) 25 mg PO Q8H PRN PRN Reason: Withdrawal Symptoms Chlordiazepoxide HCl (Librium) 25 mg PO Q6H PRN PRN Reason: Withdrawal Symptoms Last Admin: 05/28/18 14:59 Dose: 25 mg Chlordiazepoxide HCl (Librium) 50 mg PO Q6H PRN PRN Reason: Withdrawal Symptoms Last Admin: 05/29/18 08:26 Dose: 50 mg Clonidine HCl (Catapres-Tts 3) 0.3 mg TRDERM Q7D [facility] Last Admin: 05/28/18 03:09 Dose: 0.3 mg Al Hydroxide/Mg Hydroxide 30 (ml/ Lidocaine HCl 15 ml) 0 ml PO ONETIME ONE Stop: 05/25/18 16:32 Last Admin: 05/25/18 16:46 Dose: 45 ml Diatrizoate Meglum/Diatrizoate Sod (Gastrografin 37%) 90 ml PO ONETIME ONE Stop: 05/25/18 18:05 Last Admin: 05/25/18 18:16 Dose: 90 ml Diphenhydramine HCl (Benadryl) 50 mg IVPUSH ONETIME ONE Stop: 05/25/18 21:44 Last Admin: 05/25/18 21:54 Dose: 50 mg Folic Acid (Folic Acid) 1 mg PO DAILY BART Stop: 05/28/18 09:01 Last Admin: 05/28/18 08:00 Dose: 1 mg Haloperidol Lactate (Haldol) 2 mg IM Q4H PRN PRN Reason: Agitation Haloperidol Lactate (Haldol) 2 mg IM Q4H PRN PRN Reason: Withdrawal Symptoms Last Admin: 05/28/18 15:26 Dose: 2 mg Haloperidol Lactate (Haldol) 5 mg IM Q4H PRN PRN Reason: Withdrawal Symptoms Last Admin: 05/29/18 06:40 Dose: 5 mg Haloperidol Lactate (Haldol) 5 mg IM ONETIME ONE Stop: 05/29/18 09:26 Last Admin: 05/29/18 09:25 Dose: 5 mg Hydromorphone HCl (Dilaudid) 1 mg IVPUSH ONETIME STA Stop: 05/25/18 16:48 Last Admin: 05/25/18 17:01 Dose: 1 mg Hydromorphone HCl (Dilaudid) 0.5 mg IVPUSH ONETIME ONE Stop: 05/25/18 19:40 Last Admin: 05/25/18 20:12 Dose: Not Given Hydromorphone HCl (Dilaudid) 1 mg IVPUSH Q4H PRN PRN Reason: Pain (severe 7-10) Last Admin: 05/25/18 21:46 Dose: 1 mg Hydromorphone HCl (Dilaudid) 2 mg IVPUSH Q4H PRN PRN Reason: Pain (severe 7-10) Last Admin: 05/27/18 01:09 Dose: 2 mg Hydromorphone HCl (Dilaudid) 1 mg IVPUSH Q6H PRN PRN Reason: Pain (severe 7-10) Last Admin: 05/28/18 05:48 Dose: 1 mg Hydromorphone HCl (Dilaudid) 0.5 mg IVPUSH Q6H PRN PRN Reason: Pain (severe 7-10) Last Admin: 05/29/18 03:23 Dose: 0.5 mg Sodium Chloride (Normal Saline) 1,000 mls @ 999 mls/hr IV ASDIRECTED BART Last Admin: 05/25/18 17:03 Dose: 999 mls/hr Thiamine HCl 100 mg/ Sodium (Chloride) 51 mls @ 100 mls/hr IV ONETIME ONE Stop: 05/25/18 20:30 Last Admin: 05/25/18 20:58 Dose: 100 mls/hr Potassium Chloride/Dextrose/Sod Cl (D5 Ns With 20 Meq Kcl) 1,000 mls @ 175 mls/ hr IV ASDIRECTED [facility] Last Admin: 05/27/18 08:24 Dose: 175 mls/hr Potassium Chloride 10 meq/ (Premix) 100 mls @ 100 mls/hr IV Q1H [facility] Stop: 05/26/18 02:59 Last Admin: 05/26/18 03:11 Dose: 100 mls/hr Potassium Chloride/Dextrose/Sod Cl (D5 Ns With 20 Meq Kcl) 1,000 mls @ 100 mls/ hr IV ASDIRECTED [facility] Last Admin: 05/28/18 01:57 Dose: 100 mls/hr Magnesium Sulfate 4 gm/ Premix 100 mls @ 25 mls/hr IV Q4H [facility] Stop: 05/28/18 15:59 Last Admin: 05/28/18 11:41 Dose: 25 mls/hr Propofol (Diprivan 100 Ml) Confirm Administered Dose 100 mls @ as directed .ROUTE .STK-MED ONE Stop: 05/29/18 15:04 Last Admin: 05/29/18 16:22 Dose: Not Given Piperacillin Sod/Tazobactam (Sod 4.5 gm/ Sodium Chloride) 100 mls @ 200 mls/hr IV ONETIME ONE Stop: 05/30/18 07:59 Last Admin: 05/30/18 07:32 Dose: 200 mls/hr Ibuprofen (Motrin) 600 mg PO Q6H PRN PRN Reason: Pain (moderate 4-6) Iopamidol (Isovue-370 (76%)) 100 ml IV ONETIME ONE Stop: 05/25/18 18:06 Last Admin: 05/25/18 18:18 Dose: 100 ml Ketamine HCl (Ketalar) 50 mg IV ONETIME ONE Stop: 05/29/18 15:24 Last Admin: 05/29/18 15:23 Dose: 50 mg Lorazepam (Ativan) 0 mg IV Q6H PRN; Protocol PRN Reason: Withdrawal Symptoms Last Admin: 05/27/18 23:16 Dose: 1 mg Lorazepam (Ativan) 1 - 3 mg IV ASDIRECTED PRN; Protocol PRN Reason: Withdrawal Symptoms Last Admin: 05/29/18 09:46 Dose: 3 mg Lorazepam (Ativan) Confirm Administered Dose 2 mg .ROUTE .STK-MED ONE Stop: 05/28/18 00:40 Last Admin: 05/28/18 00:57 Dose: Not Given Lorazepam (Ativan) 2 mg IVPUSH ONETIME ONE Stop: 05/28/18 00:41 Last Admin: 05/28/18 00:40 Dose: 2 mg Midazolam HCl (Versed 1 Mg/Ml) Confirm Administered Dose 2 mg .ROUTE .STK-MED ONE Stop: 05/29/18 09:28 Last Admin: 05/29/18 09:30 Dose: 2 mg Miscellaneous Information (Remove Patch) 1 ea TRDERM ONETIME ONE Stop: 05/28/18 20:01 Last Admin: 05/28/18 20:35 Dose: 1 ea Miscellaneous Information (Remove Patch) 1 ea TRDERM ONETIME ONE Stop: 05/28/18 22:01 Last Admin: 05/28/18 21:33 Dose: 1 ea Multivitamins (Thera) 1 each PO DAILY BART Stop: 05/29/18 09:01 Last Admin: 05/29/18 08:26 Dose: 1 each Ondansetron HCl (Zofran Odt) 4 mg PO ONETIME ONE Stop: 05/25/18 16:34 Last Admin: 05/25/18 17:01 Dose: Not Given Ondansetron HCl (Zofran) 4 mg IVPUSH ONETIME ONE Stop: 05/25/18 16:48 Last Admin: 05/25/18 16:59 Dose: 4 mg Oxycodone HCl (Oxycodone) 5 mg PO Q4H PRN PRN Reason: Pain (moderate 4-6) Last Admin: 05/25/18 20:51 Dose: 5 mg Oxycodone HCl (Oxycontin) 20 mg PO Q12HR BART Last Admin: 05/28/18 08:01 Dose: Not Given Pantoprazole Sodium (Protonix) 40 mg PO ONETIME ONE Stop: 05/25/18 16:33 Last Admin: 05/25/18 17:05 Dose: Not Given Pantoprazole Sodium (Protonix Iv) 40 mg IVPUSH ONETIME ONE Stop: 05/25/18 16:48 Last Admin: 05/25/18 17:03 Dose: 40 mg Pantoprazole Sodium (Protonix Iv) 40 mg IV Q12HR BART Pantoprazole Sodium (Protonix Iv) 40 mg IV Q12HR B[facility] Stop: 05/27/18 21:01 Last Admin: 05/27/18 21:40 Dose: 40 mg Pantoprazole Sodium (Protonix) 40 mg PO BID [facility] Last Admin: 05/29/18 08:27 Dose: 40 mg Quetiapine Fumarate (Seroquel) 50 mg PO BEDTIME [facility] Last Admin: 05/28/18 20:33 Dose: 50 mg Quetiapine Fumarate (Seroquel) 50 mg PO BEDTIME [facility] Rocuronium Andale (Zemuron) 60 mg IVPUSH ONETIME ONE Stop: 05/29/18 15:26 Last Admin: 05/29/18 15:25 Dose: 60 mg Scopolamine (Transderm-Scop) 1.5 mg TRDERM Q72H ONE Stop: 05/25/18 20:01 Last Admin: 05/25/18 20:49 Dose: 1.5 mg Topiramate (Topamax) 25 mg PO BID [facility] Last Admin: 05/29/18 08:25 Dose: 25 mg Topiramate (Topamax) 25 mg PO BID [facility] - Exam Quality Assessment: Urine Catheter, DVT Prophylaxis, Restraints General: Sedated HEENT: Pupils Equal, Pupils Reactive Lungs: Wheezing (mild expiratory), Other (mechanical breath sounds). No: Normal Respiratory Effort Cardiovascular: Regular Rate, Regular Rhythm GI/Abdominal Exam: Normal Bowel Sounds, Soft, Non-Tender, No Organomegaly, No Distention, No Abnormal Bruit (Male) Exam: Other (indwelling boone catheter) Back Exam: Normal Inspection, Decreased Range of Motion Extremities: Normal Inspection, Non-Tender, No Pedal Edema, Normal Capillary Refill Peripheral Pulses: 2+: Posterior Tibial (R), Dorsalis Pedis (R) Skin: Warm, Dry, Intact Neurological: Other (deferred) Psy/Mental Status: Other (not appropriate) Physical Findings Comments:: Patient is sedate/intubated on mechanical ventilator - Problem List Review Problem List Initiated/Reviewed/Updated: Yes - My Orders Last 24 Hours: My Active Orders 05/29/18 10:00 Midazolam [Versed 5 MG/ML] 50 mg Sodium Chloride 0.9% [Normal Saline] 40 ml IV TITRATE 05/29/18 15:15 Propofol [Diprivan 100 ML] 100 ml IV TITRATE 05/29/18 15:48 RASS Sedation Scale [RC] ASDIRECTED 05/29/18 15:52 Precautions [COMM] Routine 05/29/18 16:09 RASS Sedation Scale [RC] ASDIRECTED Desired Level of Sedation (RASS) [AST] Click To Edit 05/29/18 16:29 RT Ventilator, Adult [RC] ASDIRECTED 05/29/18 17:53 HYDROmorphone [Dilaudid] 2 mg IVPUSH Q6H PRN 05/29/18 18:30 Blood Glucose Check, Bedside [RC] Q6HR 05/29/18 21:00 Famotidine [Pepcid] 20 mg IVPUSH BID 05/30/18 06:40 Blood Culture x2 Reflex Set [OM.PC] Stat 05/30/18 06:50 CULTURE URINE [RM] Routine 05/30/18 06:55 CULTURE BLOOD [BC] Stat 05/30/18 07:05 CULTURE BLOOD [BC] Stat 05/30/18 09:00 RT Arterial Blood Gases, ABG [RC] Click to Edit 05/30/18 09:15 Levofloxacin/Dextrose 5%-Water [Levaquin in D5W 750 MG/150 ML] 750 mg Premix Bag 1 bag IV Q24H Magnesium Sulfate/Water [Magnesium Sulfate 4 GM in Water 50 ML] 4 gm Premix Bag 1 bag IV ONETIME 05/30/18 14:00 Magnesium Sulfate/Water [Magnesium Sulfate 2 GM in Water 50 ML] 2 gm Premix Bag 1 bag IV ONETIME 05/30/18 15:30 Piperacillin/Tazobactam [Piperacil-Tazobact] 4.5 gm Sodium Chloride 0.9% [ Normal Saline] 100 ml IV Q8H 05/30/18 Dinner NPO [Nothing Per Oral Diet] [DIET] 05/31/18 05:11 BMP [BASIC METABOLIC PANEL,BMP] [CHEM] AM MG [MAGNESIUM] [CHEM] AM 06/01/18 05:11 BMP [BASIC METABOLIC PANEL,BMP] [CHEM] AM MG [MAGNESIUM] [CHEM] AM 06/02/18 05:11 BMP [BASIC METABOLIC PANEL,BMP] [CHEM] AM MG [MAGNESIUM] [CHEM] AM 06/04/18 03:00 Remove Patch 1 derrek LAZAR Q7D - Plan Plan:: Assessment/Plan: Acute: Delirium Tremens on Mechanical Ventilator - Severe ETOH Withdrawal - RASS -4; advance to -5 - Plan to hopefully extubate after 48hrs - Continue IV Zosyn and will add Levaquin for aspiration coverage (had a lot for oral secretion during intubation) - Continue IV Propofol and Midazolam drip per paper CIWAA Protocol; if we run out of versed will augment with Ativan drip - CXR shows stable placement of NGT and Tip of ETT; increased density within the left lung base - ABG this AM shows pH of 7.36, pCO2 of 26.2, PO2 of 73, HCO3 of 14.4, and O2 Sat of 96.5% - No changes needed of current Vent setting to TV of 475, RR 12, PEEP of 5 and FiO2 of 35%; make sure he is fully sedated ETOH Withdrawal Symptoms w/ Aggression and Combativeness - Carries a hx/o Chronic ETOH Use - Alcoholism is now causing serious health issues - VISHNU is 0.38 - CIWA score 13->20 - Thiamine, Folic Acid, and MVI - Midazolam drip per Protocol (see Manual Provided) - SAC; refused services; we will try again once alert and awake - Hold Tele-psych consult; he is not appropriate at this time - Advised to quit drinking - Discussed option for possible intubation if his aggression/combativeness persists; mom consented Hyponatremia, Continues to Improve - NA 127-->132-->134 2/2 D5W infusion - No episode of seizures observed - Restart D5WNS 0.9% with 20mEq of IVF at 50 cc/hr for glucose maintenance Nicotine Dependence - Smokes Cigarettes: 2ppd - Nicotine patch daily Hypomagnesemia - Mg 1.6-->1.6--> 1.2 - 2/2 NPO status - Replete and monitor Resolved: S/p Hypokalemia - K 3.1-->4.3 - 2/2 GI Loss - Replete and monitor S/p Severe Pancreatitis - Carries a hx/o Chronic ETOH Use/Dependence - 2/2 ETOH Pancreatitis; drinks heavily - VISHNU level is 0.38 - Lipase is 5831-->3801-->1115-->548-->407 - CT scan report reads fairly severe pancreatitis with diffuse surrounding inflammatory change, mild pancreatic edema as well as fluid around the pancreas extending into the paracolic gutter and into the dependent portion of the pelvis. - MIKEY' Criteria: 1 = LHD level of 512-1% predicted Mortality; BISAP score is 0 (Patients with a BISAP Score of 0 had <1% risk of mortality) - Continue IV fluids, pain control, anti-emesis and electrolytes supplement - May start clear liquid diet and advance to soft and regular (nonfatty/ nongreasy meal) as tolerated - Excellent urine output S/p Transaminitis - AST/ALT= 2:1; 138:66-->91:48-->65:37 - 2/2 ETOH Abuse - IV fluids and will avoid acetaminophen Chronic: HTN ETOH Pancreatitis Alcoholism Depression Fatty Liver - 2/2 Chronic ETOH Use - CT Scan report reads prominent fatty infiltration within the liver; seen on CT scan 10/29/2016 as well - NPO for now except ice chips, sips fo water and oral meds - Advised to quit drinking Substance Abuse: Oxycodone, Marijuana, Amphetamine and Meth Plan: He looks comfortable this morning Routine AM Labs Continue CIWA Protocol GI/DVT PPx: PPI/SCDs SW/CM for d/c planning Additional orders as above Code status:1 LOS anticipate > 96hrs due patient is on mechanical ventilator
[2018-05-30] MEDS: Dextrose 5%-0.9% NaCl with KCl 1,000 ML IV SCH ×2 (10:14→23:35)
[2018-05-30] MEDS: Levofloxacin/Dextrose 5%-Water 750 MG in Premix Bag 1 BAG IV SCH (10:16)
[2018-05-30] MEDS ORDERED: Magnesium Sulfate/Water 2 GM in Premix Bag 1 BAG IV ONE (14:00)
[2018-05-30] MEDS: Piperacillin/Tazobactam 4.5 GM in Sodium Chloride 0.9% 100 ML IV SCH ×2 (14:44→23:02)
[2018-05-30] MEDS: cloNIDine 0.1 MG Tab PO PRN (14:51)
[2018-05-30] MEDS ORDERED: Midazolam 5 MG/ML 5 ML MDV ONE (19:23)
[2018-05-31] MEDS: cloNIDine 0.1 MG Tab PO PRN (02:01)
[2018-05-31] MEDS: Midazolam 50 MG in Sodium Chloride 0.9% 40 ML IV SCH (02:25)
[2018-05-31] MEDS: Piperacillin/Tazobactam 4.5 GM in Sodium Chloride 0.9% 100 ML IV SCH ×2 (06:32→15:40)
[2018-05-31] MEDS ORDERED: Bumetanide 1 MG/4 ML MDV IVPUSH ONE (08:15)
[2018-05-31] MEDS ORDERED: Modafinil 200 MG Tab PO STA (08:24)
--- NOTE | 2018-05-31 08:51 | CR ---
Chest: Portable view of the chest was obtained. Comparison: Prior chest x-ray of 05/30/18. Endotracheal tube is seen. Tip lies at the lower level of the clavicles. Nasogastric tube is in place with tip remaining within the stomach. Slight increased density within the left lung base within the retrocardiac region remains without change. Lungs otherwise are clear. Bony structures are grossly intact. Impression: 1. Increased density remains within the left lung base within the retrocardiac region, differential as previously described. 2. Stable position of endotracheal tube and nasogastric tube. 3. Nothing new is seen on portable chest x-ray from prior study. Diagnostic code #3
--- NOTE | 2018-05-31 10:13 | PCM.SN ---
- Free Text/Narrative Note: Patient seen and examined at bed side, His ABG looks pretty good: pH of 7.34, PCO2 of 37.3, PO2 of 107, HCO3 of 19.5 and O2 sat of 98.5% with Same Vent setting: AC with TV of 475 ml, PEEP of 5, RR of 12, FiO2 of 35%. His CXR is essentially about the same as yesterday. His sedation is completely turned off. RT notified to change vent mode to either PS or CPAP since he is breathing on his own. Patient wakes up and his eyes are partially opened. He is able to move all extremities but does not follow commands. He'll likely need a good few more hours for those medications to come off in his body and hopefully he'll be successfully extubated thereafter. Dr. Moyer will be taking over the hospitalist service starting today.
[2018-05-31] MEDS: Famotidine 20 MG/2 ML SDV IVPUSH SCH ×2 (10:55→20:24)
[2018-05-31] MEDS: Thiamine 100 MG Tab PO SCH (10:55)
[2018-05-31] MEDS: Levofloxacin/Dextrose 5%-Water 750 MG in Premix Bag 1 BAG IV SCH (10:56)
[2018-05-31] MEDS: Acetaminophen 325 MG Tab PO PRN (11:34)
[2018-05-31] MEDS: hydrALAZINE 20 MG/ML SDV IVPUSH PRN (12:30)
[2018-05-31] MEDS: Dextrose 5%-0.9% NaCl with KCl 1,000 ML IV SCH (12:55)
--- NOTE | 2018-05-31 13:58 | PCM.PN ---
- General Info Date of Service: 05/31/18 Subjective Update: Weaning parameters; extubation today. Functional Status: Reports: Urinating, Other (Intubated) - Review of Systems General: Reports: No Symptoms HEENT: Reports: No Symptoms Pulmonary: Reports: No Symptoms Cardiovascular: Reports: No Symptoms Gastrointestinal: Reports: No Symptoms Genitourinary: Reports: No Symptoms Musculoskeletal: Reports: No Symptoms Skin: Reports: No Symptoms Neurological: Reports: No Symptoms Psychiatric: Reports: No Symptoms - Patient Data Vitals - Most Recent: Last Vital Signs Temp 36.6 C 05/31/18 12:00 Pulse 100 05/31/18 13:00 Resp 19 05/31/18 13:00 BP 143/92 H 05/31/18 13:00 Pulse Ox 18 L 05/31/18 13:00 Weight - Most Recent: 68.492 kg I&O - Last 24 Hours: Intake & Output 05/30/18 05/31/18 05/31/18 22:59 06:59 14:59 Intake Total 2318 1456 100 Output Total 560 910 950 Balance 1758 546 -850 Lab Results Last 24 Hours: Laboratory Results - last 24 hr 05/30/18 05/30/18 05/31/18 Range/Units 18:46 23:39 05:25 WBC 10.06 H (4.23-9.07) K/mm3 RBC 3.71 L (4.63-6.08) M/mm3 Hgb 11.0 L (13.7-17.5) gm/L Hct 34.4 L (40.1-51.0) % MCV 92.7 H (79.0-92.2) fl MCH 29.6 (25.7-32.2) pg MCHC 32.0 L (32.2-35.5) g/dl RDW Std Deviation 46.5 H (35.1-43.9) fL Plt Count 181 (163-337) K/mm3 MPV 11.9 (9.4-12.3) fl Neut % (Auto) 71.6 H (34.0-67.9) % Lymph % (Auto) 7.2 L (21.8-53.1) % [place] % (Auto) 18.6 H (5.3-12.2) % Eos % (Auto) 1.7 (0.8-7.0) Baso % (Auto) 0.2 (0.1-1.2) % Neut # (Auto) 7.21 H (1.78-5.38) K/mm3 Lymph # (Auto) 0.72 L (1.32-3.57) K/mm3 [place] # (Auto) 1.87 H (0.30-0.82) K/mm3 Eos # (Auto) 0.17 (0.04-0.54) K/mm3 Baso # (Auto) 0.02 (0.01-0.08) K/mm3 Manual Slide Review Abnormal smear Puncture Site ABG pH (7.35-7.45) ABG pCO2 (35.0-45.0) mmHg ABG pO2 (80.0-100.0) mmHg ABG HCO3 (22.0-26.0) meq/L ABG O2 Saturation (96.0-97.0) % ABG Base Excess (-2-2.0) [place] Test A-a Gradient mmHg O2 Delivery Device FiO2 (21.00-100.00) % Tidal Volume cc PEEP cmH20 Pressure Support cmH2O Sodium (136-145) mEq/L Potassium (3.5-5.1) mEq/L Chloride (98-107) mEq/L Carbon Dioxide (21-32) mEq/L Anion Gap (5-15) BUN (7-18) mg/dL Creatinine (0.7-1.3) mg/dL Est Cr Clr Drug Dosing mL/min Estimated GFR (MDRD) (>60) mL/min BUN/Creatinine Ratio (14-18) Glucose (74-106) mg/dL POC Glucose 119 H 110 H (70-105) mg/dL Calcium (8.5-10.1) mg/dL Magnesium (1.8-2.4) mg/dl 05/31/18 05/31/18 05/31/18 Range/Units 05:28 05:56 07:00 WBC (4.23-9.07) K/mm3 RBC (4.63-6.08) M/mm3 Hgb (13.7-17.5) gm/L Hct (40.1-51.0) % MCV (79.0-92.2) fl MCH (25.7-32.2) pg MCHC (32.2-35.5) g/dl RDW Std Deviation (35.1-43.9) fL Plt Count (163-337) K/mm3 MPV (9.4-12.3) fl Neut % (Auto) (34.0-67.9) % Lymph % (Auto) (21.8-53.1) % [place] % (Auto) (5.3-12.2) % Eos % (Auto) (0.8-7.0) Baso % (Auto) (0.1-1.2) % Neut # (Auto) (1.78-5.38) K/mm3 Lymph # (Auto) (1.32-3.57) K/mm3 [place] # (Auto) (0.30-0.82) K/mm3 Eos # (Auto) (0.04-0.54) K/mm3 Baso # (Auto) (0.01-0.08) K/mm3 Manual Slide Review Puncture Site Lt radial ABG pH 7.34 L (7.35-7.45) ABG pCO2 37.3 (35.0-45.0) mmHg ABG pO2 107.0 H (80.0-100.0) mmHg ABG HCO3 19.5 L (22.0-26.0) meq/L ABG O2 Saturation 98.5 H (96.0-97.0) % ABG Base Excess -5.3 L (-2-2.0) [place] Test Positive A-a Gradient 70 mmHg O2 Delivery Device Ventilator FiO2 0.00 L (21.00-100.00) % Tidal Volume 475.0 cc PEEP 5.0 cmH20 Pressure Support 0.0 cmH2O Sodium 138 (136-145) mEq/L Potassium 4.1 (3.5-5.1) mEq/L Chloride 107 (98-107) mEq/L Carbon Dioxide 21 (21-32) mEq/L Anion Gap 14.1 (5-15) BUN 8 (7-18) mg/dL Creatinine 0.6 L (0.7-1.3) mg/dL Est Cr Clr Drug Dosing 166.47 mL/min Estimated GFR (MDRD) > 60 (>60) mL/min BUN/Creatinine Ratio 13.3 L (14-18) Glucose 118 H (74-106) mg/dL POC Glucose 107 H (70-105) mg/dL Calcium 8.3 L (8.5-10.1) mg/dL Magnesium 2.1 (1.8-2.4) mg/dl 05/31/18 Range/Units 13:24 WBC (4.23-9.07) K/mm3 RBC (4.63-6.08) M/mm3 Hgb (13.7-17.5) gm/L Hct (40.1-51.0) % MCV (79.0-92.2) fl MCH (25.7-32.2) pg MCHC (32.2-35.5) g/dl RDW Std Deviation (35.1-43.9) fL Plt Count (163-337) K/mm3 MPV (9.4-12.3) fl Neut % (Auto) (34.0-67.9) % Lymph % (Auto) (21.8-53.1) % [place] % (Auto) (5.3-12.2) % Eos % (Auto) (0.8-7.0) Baso % (Auto) (0.1-1.2) % Neut # (Auto) (1.78-5.38) K/mm3 Lymph # (Auto) (1.32-3.57) K/mm3 [place] # (Auto) (0.30-0.82) K/mm3 Eos # (Auto) (0.04-0.54) K/mm3 Baso # (Auto) (0.01-0.08) K/mm3 Manual Slide Review Puncture Site ABG pH (7.35-7.45) ABG pCO2 (35.0-45.0) mmHg ABG pO2 (80.0-100.0) mmHg ABG HCO3 (22.0-26.0) meq/L ABG O2 Saturation (96.0-97.0) % ABG Base Excess (-2-2.0) [place] Test A-a Gradient mmHg O2 Delivery Device FiO2 (21.00-100.00) % Tidal Volume cc PEEP cmH20 Pressure Support cmH2O Sodium (136-145) mEq/L Potassium (3.5-5.1) mEq/L Chloride (98-107) mEq/L Carbon Dioxide (21-32) mEq/L Anion Gap (5-15) BUN (7-18) mg/dL Creatinine (0.7-1.3) mg/dL Est Cr Clr Drug Dosing mL/min Estimated GFR (MDRD) (>60) mL/min BUN/Creatinine Ratio (14-18) Glucose (74-106) mg/dL POC Glucose 122 H (70-105) mg/dL Calcium (8.5-10.1) mg/dL Magnesium (1.8-2.4) mg/dl [facility] Results Last 24 Hours: Microbiology 05/30/18 06:55 Aerobic Blood Culture - Preliminary Blood - Venous NO GROWTH AFTER 1 DAY Anaerobic Blood Culture - Preliminary NO GROWTH AFTER 1 DAY 05/30/18 07:05 Aerobic Blood Culture - Preliminary Blood - Venous - Lab Draw NO GROWTH AFTER 1 DAY Anaerobic Blood Culture - Preliminary NO GROWTH AFTER 1 DAY 05/30/18 06:50 Urine Culture - Preliminary Urine, [place] Cath (Indwelling) NO GROWTH AFTER 1 DAY Med Orders - Current: Current Medications Acetaminophen (Tylenol) 650 mg RECTAL Q6H PRN PRN Reason: Pain/Fever/DRISCOLL Last Admin: 05/30/18 07:36 Dose: 650 mg Acetaminophen (Tylenol) 650 mg PO Q6H PRN PRN Reason: Pain/Fever/DRISCOLL Last Admin: 05/31/18 11:34 Dose: 650 mg Albuterol/Ipratropium (Duoneb 3.0-0.5 Mg/3 Ml) 3 ml NEB Q4H PRN PRN Reason: Shortness Of Breath/wheezing Clonidine HCl (Catapres) 0.1 mg PO Q4H PRN PRN Reason: Agitation Last Admin: 05/31/18 02:01 Dose: 0.1 mg Famotidine (Pepcid) 20 mg IVPUSH BID BART Last Admin: 05/31/18 10:55 Dose: 20 mg Hydralazine HCl (Apresoline) 20 mg IVPUSH Q4H PRN PRN Reason: Hypertension Last Admin: 05/31/18 12:30 Dose: 20 mg Hydromorphone HCl (Dilaudid) 2 mg IVPUSH Q6H PRN PRN Reason: Pain (severe 7-10) Midazolam HCl 50 mg/ Sodium (Chloride) 50 mls @ 0.5 mls/hr IV TITRATE BART; Protocol Last Titration: 05/31/18 08:46 Dose: 0 mg/hr, 0 mls/hr Propofol (Diprivan 100 Ml) 100 mls @ 2.077 mls/hr IV TITRATE BART; Protocol Last Titration: 05/31/18 08:46 Dose: 0 mcg/kg/min, 0 mls/hr Piperacillin Sod/Tazobactam (Sod 4.5 gm/ Sodium Chloride) 100 mls @ 25 mls/hr IV Q8H [facility] Last Admin: 05/31/18 06:32 Dose: 25 mls/hr Levofloxacin/Dextrose 750 mg/ (Premix) 150 mls @ 100 mls/hr IV Q24H [facility] Last Admin: 05/31/18 10:56 Dose: 100 mls/hr Potassium Chloride/Dextrose/Sod Cl (D5 Ns With 20 Meq Kcl) 1,000 mls @ 75 mls/ hr IV ASDIRECTED [facility] Last Admin: 05/30/18 23:35 Dose: 75 mls/hr Lorazepam (Ativan) 2 mg IVPUSH Q4H PRN PRN Reason: Seizures Magnesium Sulfate (Pharmacy To Dose - Magnesium Replacement) 0 dose .XX ASDIRECTED PRN PRN Reason: RX TO WATCH MAG Metoprolol Tartrate (Lopressor) 5 mg IVPUSH Q4H PRN PRN Reason: Tachycardia Last Admin: 05/30/18 08:07 Dose: 5 mg Miscellaneous Information (Remove Patch) 1 ea TRDERM DAILY PRN PRN Reason: NICOTINE DEPENDENCE Last Admin: 05/27/18 18:31 Dose: 1 ea Miscellaneous Information (Remove Patch) 1 ea TRDERM Q7D [facility] Nicotine (Habitrol) 21 mg TRDERM DAILY PRN PRN Reason: Nicotine Dependence Last Admin: 05/27/18 21:42 Dose: 21 mg Ondansetron HCl (Zofran) 4 mg IV Q6H PRN PRN Reason: Nausea/Vomiting Potassium Chloride (Pharmacy To Dose - Potassium Replacement) 0 dose .XX ASDIRECTED PRN PRN Reason: RX TO WATCH K Thiamine HCl (Vitamin B-1) 100 mg PO DAILY [facility] Last Admin: 05/31/18 10:55 Dose: 100 mg Discontinued Medications Bumetanide (Bumex) 0.5 mg IVPUSH ONETIME ONE Stop: 05/31/18 08:16 Last Admin: 05/31/18 08:25 Dose: 0.5 mg Chlordiazepoxide HCl (Librium) 25 mg PO Q8H PRN PRN Reason: Withdrawal Symptoms Last Admin: 05/26/18 06:27 Dose: 25 mg Chlordiazepoxide HCl (Librium) 25 mg PO ONETIME ONE Stop: 05/25/18 22:01 Last Admin: 05/25/18 22:07 Dose: 25 mg Chlordiazepoxide HCl (Librium) 25 mg PO Q8H [facility] Last Admin: 05/28/18 05:02 Dose: 25 mg Chlordiazepoxide HCl (Librium) 25 mg PO Q8H PRN PRN Reason: Withdrawal Symptoms Chlordiazepoxide HCl (Librium) 25 mg PO Q6H PRN PRN Reason: Withdrawal Symptoms Last Admin: 05/28/18 14:59 Dose: 25 mg Chlordiazepoxide HCl (Librium) 50 mg PO Q6H PRN PRN Reason: Withdrawal Symptoms Last Admin: 05/29/18 08:26 Dose: 50 mg Clonidine HCl (Catapres-Tts 3) 0.3 mg TRDERM Q7D [facility] Last Admin: 05/28/18 03:09 Dose: 0.3 mg Al Hydroxide/Mg Hydroxide 30 (ml/ Lidocaine HCl 15 ml) 0 ml PO ONETIME ONE Stop: 05/25/18 16:32 Last Admin: 05/25/18 16:46 Dose: 45 ml Diatrizoate Meglum/Diatrizoate Sod (Gastrografin 37%) 90 ml PO ONETIME ONE Stop: 05/25/18 18:05 Last Admin: 05/25/18 18:16 Dose: 90 ml Diphenhydramine HCl (Benadryl) 50 mg IVPUSH ONETIME ONE Stop: 05/25/18 21:44 Last Admin: 05/25/18 21:54 Dose: 50 mg Folic Acid (Folic Acid) 1 mg PO DAILY BART Stop: 05/28/18 09:01 Last Admin: 05/28/18 08:00 Dose: 1 mg Haloperidol Lactate (Haldol) 2 mg IM Q4H PRN PRN Reason: Agitation Haloperidol Lactate (Haldol) 2 mg IM Q4H PRN PRN Reason: Withdrawal Symptoms Last Admin: 05/28/18 15:26 Dose: 2 mg Haloperidol Lactate (Haldol) 5 mg IM Q4H PRN PRN Reason: Withdrawal Symptoms Last Admin: 05/29/18 06:40 Dose: 5 mg Haloperidol Lactate (Haldol) 5 mg IM ONETIME ONE Stop: 05/29/18 09:26 Last Admin: 05/29/18 09:25 Dose: 5 mg Hydromorphone HCl (Dilaudid) 1 mg IVPUSH ONETIME STA Stop: 05/25/18 16:48 Last Admin: 05/25/18 17:01 Dose: 1 mg Hydromorphone HCl (Dilaudid) 0.5 mg IVPUSH ONETIME ONE Stop: 05/25/18 19:40 Last Admin: 05/25/18 20:12 Dose: Not Given Hydromorphone HCl (Dilaudid) 1 mg IVPUSH Q4H PRN PRN Reason: Pain (severe 7-10) Last Admin: 05/25/18 21:46 Dose: 1 mg Hydromorphone HCl (Dilaudid) 2 mg IVPUSH Q4H PRN PRN Reason: Pain (severe 7-10) Last Admin: 05/27/18 01:09 Dose: 2 mg Hydromorphone HCl (Dilaudid) 1 mg IVPUSH Q6H PRN PRN Reason: Pain (severe 7-10) Last Admin: 05/28/18 05:48 Dose: 1 mg Hydromorphone HCl (Dilaudid) 0.5 mg IVPUSH Q6H PRN PRN Reason: Pain (severe 7-10) Last Admin: 05/29/18 03:23 Dose: 0.5 mg Sodium Chloride (Normal Saline) 1,000 mls @ 999 mls/hr IV ASDIRECTED [facility] Last Admin: 05/25/18 17:03 Dose: 999 mls/hr Thiamine HCl 100 mg/ Sodium (Chloride) 51 mls @ 100 mls/hr IV ONETIME ONE Stop: 05/25/18 20:30 Last Admin: 05/25/18 20:58 Dose: 100 mls/hr Potassium Chloride/Dextrose/Sod Cl (D5 Ns With 20 Meq Kcl) 1,000 mls @ 175 mls/ hr IV ASDIRECTED [facility] Last Admin: 05/27/18 08:24 Dose: 175 mls/hr Potassium Chloride 10 meq/ (Premix) 100 mls @ 100 mls/hr IV Q1H [facility] Stop: 05/26/18 02:59 Last Admin: 05/26/18 03:11 Dose: 100 mls/hr Potassium Chloride/Dextrose/Sod Cl (D5 Ns With 20 Meq Kcl) 1,000 mls @ 100 mls/ hr IV ASDIRECTED [facility] Last Admin: 05/28/18 01:57 Dose: 100 mls/hr Magnesium Sulfate 4 gm/ Premix 100 mls @ 25 mls/hr IV Q4H [facility] Stop: 05/28/18 15:59 Last Admin: 05/28/18 11:41 Dose: 25 mls/hr Potassium Chloride/Sodium Chloride (Normal Saline With 20 Meq Kcl) 1,000 mls @ 125 mls/hr IV ASDIRECTED [facility] Last Admin: 05/30/18 07:04 Dose: 125 mls/hr Propofol (Diprivan 100 Ml) Confirm Administered Dose 100 mls @ as directed .ROUTE .STK-MED ONE Stop: 05/29/18 15:04 Last Admin: 05/29/18 16:22 Dose: Not Given Piperacillin Sod/Tazobactam (Sod 4.5 gm/ Sodium Chloride) 100 mls @ 200 mls/hr IV ONETIME ONE Stop: 05/30/18 07:59 Last Admin: 05/30/18 07:32 Dose: 200 mls/hr Magnesium Sulfate 4 gm/ Premix 50 mls @ 12.5 mls/hr IV ONETIME ONE Stop: 05/30/18 13:14 Last Admin: 05/30/18 10:08 Dose: 12.5 mls/hr Magnesium Sulfate 2 gm/ Premix 50 mls @ 25 mls/hr IV ONETIME ONE Stop: 05/30/18 15:59 Last Admin: 05/30/18 14:12 Dose: 25 mls/hr Ibuprofen (Motrin) 600 mg PO Q6H PRN PRN Reason: Pain (moderate 4-6) Iopamidol (Isovue-370 (76%)) 100 ml IV ONETIME ONE Stop: 05/25/18 18:06 Last Admin: 05/25/18 18:18 Dose: 100 ml Ketamine HCl (Ketalar) 50 mg IV ONETIME ONE Stop: 05/29/18 15:24 Last Admin: 05/29/18 15:23 Dose: 50 mg Lorazepam (Ativan) 0 mg IV Q6H PRN; Protocol PRN Reason: Withdrawal Symptoms Last Admin: 05/27/18 23:16 Dose: 1 mg Lorazepam (Ativan) 1 - 3 mg IV ASDIRECTED PRN; Protocol PRN Reason: Withdrawal Symptoms Last Admin: 05/29/18 09:46 Dose: 3 mg Lorazepam (Ativan) Confirm Administered Dose 2 mg .ROUTE .STK-MED ONE Stop: 05/28/18 00:40 Last Admin: 05/28/18 00:57 Dose: Not Given Lorazepam (Ativan) 2 mg IVPUSH ONETIME ONE Stop: 05/28/18 00:41 Last Admin: 05/28/18 00:40 Dose: 2 mg Midazolam HCl (Versed 1 Mg/Ml) Confirm Administered Dose 2 mg .ROUTE .STK-MED ONE Stop: 05/29/18 09:28 Last Admin: 05/29/18 09:30 Dose: 2 mg Midazolam HCl (Versed 5 Mg/Ml) Confirm Administered Dose 25 mg .ROUTE .STK-MED ONE Stop: 05/30/18 19:24 Last Admin: 05/30/18 19:30 Dose: Not Given Miscellaneous Information (Remove Patch) 1 ea TRDERM ONETIME ONE Stop: 05/28/18 20:01 Last Admin: 05/28/18 20:35 Dose: 1 ea Miscellaneous Information (Remove Patch) 1 ea TRDERM ONETIME ONE Stop: 05/28/18 22:01 Last Admin: 05/28/18 21:33 Dose: 1 ea Modafinil (Provigil) 200 mg PO NOW STA Stop: 05/31/18 08:25 Last Admin: 05/31/18 08:39 Dose: 200 mg Multivitamins (Thera) 1 each PO DAILY BART Stop: 05/29/18 09:01 Last Admin: 05/29/18 08:26 Dose: 1 each Ondansetron HCl (Zofran Odt) 4 mg PO ONETIME ONE Stop: 05/25/18 16:34 Last Admin: 05/25/18 17:01 Dose: Not Given Ondansetron HCl (Zofran) 4 mg IVPUSH ONETIME ONE Stop: 05/25/18 16:48 Last Admin: 05/25/18 16:59 Dose: 4 mg Oxycodone HCl (Oxycodone) 5 mg PO Q4H PRN PRN Reason: Pain (moderate 4-6) Last Admin: 05/25/18 20:51 Dose: 5 mg Oxycodone HCl (Oxycontin) 20 mg PO Q12HR [facility] Last Admin: 05/28/18 08:01 Dose: Not Given Pantoprazole Sodium (Protonix) 40 mg PO ONETIME ONE Stop: 05/25/18 16:33 Last Admin: 05/25/18 17:05 Dose: Not Given Pantoprazole Sodium (Protonix Iv) 40 mg IVPUSH ONETIME ONE Stop: 05/25/18 16:48 Last Admin: 05/25/18 17:03 Dose: 40 mg Pantoprazole Sodium (Protonix Iv) 40 mg IV Q12HR [facility] Pantoprazole Sodium (Protonix Iv) 40 mg IV Q12HR [facility] Stop: 05/27/18 21:01 Last Admin: 05/27/18 21:40 Dose: 40 mg Pantoprazole Sodium (Protonix) 40 mg PO BID [facility] Last Admin: 05/29/18 08:27 Dose: 40 mg Quetiapine Fumarate (Seroquel) 50 mg PO BEDTIME [facility] Last Admin: 05/28/18 20:33 Dose: 50 mg Quetiapine Fumarate (Seroquel) 50 mg PO BEDTIME [facility] Rocuronium [place] (Zemuron) 60 mg IVPUSH ONETIME ONE Stop: 05/29/18 15:26 Last Admin: 05/29/18 15:25 Dose: 60 mg Scopolamine (Transderm-Scop) 1.5 mg TRDERM Q72H ONE Stop: 05/25/18 20:01 Last Admin: 05/25/18 20:49 Dose: 1.5 mg Topiramate (Topamax) 25 mg PO BID [facility] Last Admin: 05/29/18 08:25 Dose: 25 mg Topiramate (Topamax) 25 mg PO BID [facility] - Exam Quality Assessment: Supplemental Oxygen, Urine Catheter, DVT Prophylaxis, Restraints (MITTS) General: Sedated HEENT: Pupils Equal, Pupils Reactive Neck: Trachea Midline, No JVD Lungs: Normal Respiratory Effort Cardiovascular: Regular Rate, Regular Rhythm GI/Abdominal Exam: Normal Bowel Sounds, Soft, Non-Tender, No Organomegaly, No Distention (Male) Exam: Deferred Back Exam: Normal Inspection Extremities: No Pedal Edema, Normal Capillary Refill Skin: Warm, Dry, Intact Neurological: No New Focal Deficit Psy/Mental Status: Other (sedated) - Problem List Review Problem List Initiated/Reviewed/Updated: Yes - Plan Plan:: Assessment/Plan: Acute: Delirium Tremens on Mechanical Ventilator - Severe ETOH Withdrawal - RASS -4; advance to -5 - Plan to hopefully extubate after 48hrs - Continue IV Zosyn and will add Levaquin for aspiration coverage (had a lot for oral secretion during intubation) - Continue IV Propofol and Midazolam drip per paper CIWAA Protocol; if we run out of versed will augment with Ativan drip - CXR shows stable placement of NGT and Tip of ETT; increased density within the left lung base - ABG this AM shows pH of 7.36, pCO2 of 26.2, PO2 of 73, HCO3 of 14.4, and O2 Sat of 96.5% - No changes needed of current Vent setting to TV of 475, RR 12, PEEP of 5 and FiO2 of 35%; make sure he is fully sedated ETOH Withdrawal Symptoms w/ Aggression and Combativeness - Carries a hx/o Chronic ETOH Use - Alcoholism is now causing serious health issues - VISHNU is 0.38 - CIWA score 13->20 - Thiamine, Folic Acid, and MVI - Midazolam drip per Protocol (see Manual Provided) - SAC; refused services; we will try again once alert and awake - Hold Tele-psych consult; he is not appropriate at this time - Advised to quit drinking - Discussed option for possible intubation if his aggression/combativeness persists; mom consented Hyponatremia, Continues to Improve - NA 127-->132-->134 2/2 D5W infusion - No episode of seizures observed - Restart D5WNS 0.9% with 20mEq of IVF at 50 cc/hr for glucose maintenance Nicotine Dependence - Smokes Cigarettes: 2ppd - Nicotine patch daily Hypomagnesemia - Mg 1.6-->1.6--> 1.2 - 2/2 NPO status - Replete and monitor Resolved: S/p Hypokalemia - K 3.1-->4.3 - 2/2 GI Loss - Replete and monitor S/p Severe Pancreatitis - Carries a hx/o Chronic ETOH Use/Dependence - 2/2 ETOH Pancreatitis; drinks heavily - VISHNU level is 0.38 - Lipase is 5831-->3801-->1115-->548-->407 - CT scan report reads fairly severe pancreatitis with diffuse surrounding inflammatory change, mild pancreatic edema as well as fluid around the pancreas extending into the paracolic gutter and into the dependent portion of the pelvis. - MIKEY' Criteria: 1 = LHD level of 512-1% predicted Mortality; BISAP score is 0 (Patients with a BISAP Score of 0 had <1% risk of mortality) - Continue IV fluids, pain control, anti-emesis and electrolytes supplement - May start clear liquid diet and advance to soft and regular (nonfatty/ nongreasy meal) as tolerated - Excellent urine output S/p Transaminitis - AST/ALT= 2:1; 138:66-->91:48-->65:37 - 2/2 ETOH Abuse - IV fluids and will avoid acetaminophen Chronic: HTN ETOH Pancreatitis Alcoholism Depression Fatty Liver - 2/2 Chronic ETOH Use - CT Scan report reads prominent fatty infiltration within the liver; seen on CT scan 10/29/2016 as well - NPO for now except ice chips, sips fo water and oral meds - Advised to quit drinking Substance Abuse: Oxycodone, Marijuana, Amphetamine and Meth Plan: He looks comfortable this morning Routine AM Labs Continue CIWA Protocol GI/DVT PPx: PPI/SCDs SW/CM for d/c planning Additional orders as above Code status:1 LOS anticipate > 96hrs due patient is on mechanical ventilator; tolerating extubation. Advance diet as tolerated.
[2018-05-31] MEDS: HYDROmorphone 1 MG/ML Syringe IVPUSH PRN ×2 (15:39→21:26)
[2018-05-31] MEDS: LORazepam 2 MG/ML SDV IVPUSH PRN (20:07)
[2018-05-31] MEDS: chlordiazePOXIDE 25 MG Cap PO SCH (20:24)
[2018-05-31] MEDS: Topiramate 25 MG Tab PO SCH (20:25)
[2018-06-01] MEDS: Piperacillin/Tazobactam 4.5 GM in Sodium Chloride 0.9% 100 ML IV SCH ×4 (00:14→23:25)
[2018-06-01] MEDS: Dextrose 5%-0.9% NaCl with KCl 1,000 ML IV SCH ×2 (02:46→15:43)
[2018-06-01] MEDS: LORazepam 2 MG/ML SDV IVPUSH PRN ×3 (04:55→11:55)
[2018-06-01] MEDS: HYDROmorphone 1 MG/ML Syringe IVPUSH PRN ×2 (04:56→21:36)
--- NOTE | 2018-06-01 07:42 | CR ---
Chest: Portable view of the chest was obtained. Comparison: Prior chest x-ray of 05/31/18. Heart size and mediastinum are normal. Continuing parenchymal density is seen within the left base within the left retrocardiac region. Lung markings are mildly increased which are accentuated from portable technique but difficult to exclude mild bronchitis. There are scattered areas of atelectasis being seen. Endotracheal tube and nasogastric tube have been removed. Bony structures are grossly intact. Impression: 1. Continuing increased density within the left base located within the retrocardiac region. 2. Increased lung markings which are mostly accentuated from portable technique but difficult to exclude mild bronchitis. 3. Scattered areas of atelectasis are seen. 4. Endotracheal tube and nasogastric tube have been removed. Diagnostic code #3
[2018-06-01] MEDS ORDERED: Topiramate 25 MG Tab PO SCH (09:00)
[2018-06-01] MEDS ORDERED: Haloperidol Lactate 5 MG/ML SDV IVPUSH STA ×2 (09:27→12:50)
[2018-06-01] MEDS: QUEtiapine 25 MG Tab PO SCH ×2 (09:37→20:46)
[2018-06-01] MEDS: chlordiazePOXIDE 25 MG Cap PO SCH ×3 (09:37→20:46)
[2018-06-01] MEDS: Thiamine 100 MG Tab PO SCH (09:37)
[2018-06-01] MEDS: Famotidine 20 MG/2 ML SDV IVPUSH SCH (09:38)
[2018-06-01] MEDS: Levofloxacin/Dextrose 5%-Water 750 MG in Premix Bag 1 BAG IV SCH ×2 (09:41→10:50)
[2018-06-01] MEDS: hydrALAZINE 20 MG/ML SDV IVPUSH PRN ×2 (11:46→20:45)
[2018-06-01] MEDS ORDERED: LORazepam 2 MG/ML SDV IVPUSH STA (12:50)
[2018-06-01] MEDS ORDERED: LORAZEPAM IV SCH (13:00)
[2018-06-01] MEDS ORDERED: SODIUM CHLORIDE 0.9% IV SCH (13:00)
[2018-06-01] MEDS ORDERED: Magnesium Sulfate/Water 4 GM in Premix Bag 1 BAG IV ONE (13:10)
--- NOTE | 2018-06-01 13:15 | PCM.PN ---
- General Info Date of Service: 06/01/18 Functional Status: Reports: Urinating - Review of Systems General: Reports: No Symptoms HEENT: Reports: No Symptoms Pulmonary: Reports: No Symptoms Cardiovascular: Reports: No Symptoms Gastrointestinal: Reports: No Symptoms Genitourinary: Reports: No Symptoms Musculoskeletal: Reports: No Symptoms Skin: Reports: No Symptoms Neurological: Reports: Confusion Psychiatric: Reports: Mood Lability, Agitation - Patient Data Vitals - Most Recent: Last Vital Signs Temp 36.9 C 06/01/18 08:00 Pulse 82 06/01/18 08:00 Resp 14 06/01/18 08:00 BP 177/107 H 06/01/18 08:00 Pulse Ox 95 06/01/18 08:00 Weight - Most Recent: 69.082 kg I&O - Last 24 Hours: Intake & Output 05/31/18 06/01/18 06/01/18 22:59 06:59 14:59 Intake Total 1496 979 Output Total 850 350 575 Balance 646 629 -575 Lab Results Last 24 Hours: Laboratory Results - last 24 hr 05/31/18 05/31/18 06/01/18 Range/Units 13:24 18:52 00:15 WBC (4.23-9.07) K/mm3 RBC (4.63-6.08) M/mm3 Hgb (13.7-17.5) gm/L Hct (40.1-51.0) % MCV (79.0-92.2) fl MCH (25.7-32.2) pg MCHC (32.2-35.5) g/dl RDW Std Deviation (35.1-43.9) fL Plt Count (163-337) K/mm3 MPV (9.4-12.3) fl Neut % (Auto) (34.0-67.9) % Lymph % (Auto) (21.8-53.1) % [place] % (Auto) (5.3-12.2) % Eos % (Auto) (0.8-7.0) Baso % (Auto) (0.1-1.2) % Neut # (Auto) (1.78-5.38) K/mm3 Lymph # (Auto) (1.32-3.57) K/mm3 [place] # (Auto) (0.30-0.82) K/mm3 Eos # (Auto) (0.04-0.54) K/mm3 Baso # (Auto) (0.01-0.08) K/mm3 Manual Slide Review Sodium (136-145) mEq/L Potassium (3.5-5.1) mEq/L Chloride (98-107) mEq/L Carbon Dioxide (21-32) mEq/L Anion Gap (5-15) BUN (7-18) mg/dL Creatinine (0.7-1.3) mg/dL Est Cr Clr Drug Dosing mL/min Estimated GFR (MDRD) (>60) mL/min BUN/Creatinine Ratio (14-18) Glucose (74-106) mg/dL POC Glucose 122 H 101 107 H (70-105) mg/dL Calcium (8.5-10.1) mg/dL Magnesium (1.8-2.4) mg/dl Total Bilirubin (0.2-1.0) mg/dL Direct Bilirubin (0.0-0.2) mg/dl Indirect Bilirubin AST (15-37) U/L ALT (16-63) U/L Alkaline Phosphatase (46-116) U/L Total Protein (6.4-8.2) g/dl Albumin (3.4-5.0) g/dl Globulin gm/dL Albumin/Globulin Ratio (1-2) Lipase (73-393) U/L 06/01/18 06/01/18 06/01/18 Range/Units 05:00 05:00 05:05 WBC 9.53 H (4.23-9.07) K/mm3 RBC 3.95 L (4.63-6.08) M/mm3 Hgb 11.7 L (13.7-17.5) gm/L Hct 35.6 L (40.1-51.0) % MCV 90.1 (79.0-92.2) fl MCH 29.6 (25.7-32.2) pg MCHC 32.9 (32.2-35.5) g/dl RDW Std Deviation 44.7 H (35.1-43.9) fL Plt Count 260 (163-337) K/mm3 MPV 11.7 (9.4-12.3) fl Neut % (Auto) 65.2 (34.0-67.9) % Lymph % (Auto) 11.5 L (21.8-53.1) % [place] % (Auto) 20.6 H (5.3-12.2) % Eos % (Auto) 2.1 (0.8-7.0) Baso % (Auto) 0.3 (0.1-1.2) % Neut # (Auto) 6.21 H (1.78-5.38) K/mm3 Lymph # (Auto) 1.10 L (1.32-3.57) K/mm3 [place] # (Auto) 1.96 H (0.30-0.82) K/mm3 Eos # (Auto) 0.20 (0.04-0.54) K/mm3 Baso # (Auto) 0.03 (0.01-0.08) K/mm3 Manual Slide Review Abnormal smear Sodium 140 (136-145) mEq/L Potassium 3.9 (3.5-5.1) mEq/L Chloride 107 (98-107) mEq/L Carbon Dioxide 22 (21-32) mEq/L Anion Gap 14.9 (5-15) BUN 9 (7-18) mg/dL Creatinine 0.7 (0.7-1.3) mg/dL Est Cr Clr Drug Dosing 143.92 mL/min Estimated GFR (MDRD) > 60 (>60) mL/min BUN/Creatinine Ratio 12.9 L (14-18) Glucose 102 (74-106) mg/dL POC Glucose 85 (70-105) mg/dL Calcium 9.3 (8.5-10.1) mg/dL Magnesium 1.5 L (1.8-2.4) mg/dl Total Bilirubin (0.2-1.0) mg/dL Direct Bilirubin (0.0-0.2) mg/dl Indirect Bilirubin AST (15-37) U/L ALT (16-63) U/L Alkaline Phosphatase (46-116) U/L Total Protein (6.4-8.2) g/dl Albumin (3.4-5.0) g/dl Globulin gm/dL Albumin/Globulin Ratio (1-2) Lipase (73-393) U/L 06/01/18 06/01/18 Range/Units 05:48 12:11 WBC (4.23-9.07) K/mm3 RBC (4.63-6.08) M/mm3 Hgb (13.7-17.5) gm/L Hct (40.1-51.0) % MCV (79.0-92.2) fl MCH (25.7-32.2) pg MCHC (32.2-35.5) g/dl RDW Std Deviation (35.1-43.9) fL Plt Count (163-337) K/mm3 MPV (9.4-12.3) fl Neut % (Auto) (34.0-67.9) % Lymph % (Auto) (21.8-53.1) % [place] % (Auto) (5.3-12.2) % Eos % (Auto) (0.8-7.0) Baso % (Auto) (0.1-1.2) % Neut # (Auto) (1.78-5.38) K/mm3 Lymph # (Auto) (1.32-3.57) K/mm3 [place] # (Auto) (0.30-0.82) K/mm3 Eos # (Auto) (0.04-0.54) K/mm3 Baso # (Auto) (0.01-0.08) K/mm3 Manual Slide Review Sodium (136-145) mEq/L Potassium (3.5-5.1) mEq/L Chloride (98-107) mEq/L Carbon Dioxide (21-32) mEq/L Anion Gap (5-15) BUN (7-18) mg/dL Creatinine (0.7-1.3) mg/dL Est Cr Clr Drug Dosing mL/min Estimated GFR (MDRD) (>60) mL/min BUN/Creatinine Ratio (14-18) Glucose (74-106) mg/dL POC Glucose 86 (70-105) mg/dL Calcium (8.5-10.1) mg/dL Magnesium (1.8-2.4) mg/dl Total Bilirubin 0.9 (0.2-1.0) mg/dL Direct Bilirubin 0.40 H (0.0-0.2) mg/dl Indirect Bilirubin 0.50 AST 48 H (15-37) U/L ALT 32 (16-63) U/L Alkaline Phosphatase 105 (46-116) U/L Total Protein 6.8 (6.4-8.2) g/dl Albumin 2.4 L (3.4-5.0) g/dl Globulin 4.4 gm/dL Albumin/Globulin Ratio 0.6 L (1-2) Lipase 351 (73-393) U/L [facility] Results Last 24 Hours: Microbiology 05/30/18 06:50 Urine Culture - Final Urine, [place] Cath ([place]) NO GROWTH AFTER 2 DAYS 05/30/18 06:55 Aerobic Blood Culture - Preliminary Blood - Venous NO GROWTH AFTER 2 DAYS Anaerobic Blood Culture - Preliminary NO GROWTH AFTER 2 DAYS 05/30/18 07:05 Aerobic Blood Culture - Preliminary Blood - Venous - Lab Draw NO GROWTH AFTER 2 DAYS Anaerobic Blood Culture - Preliminary NO GROWTH AFTER 2 DAYS Med Orders - Current: Current Medications Acetaminophen (Tylenol) 650 mg RECTAL Q6H PRN PRN Reason: Pain/Fever/DRISCOLL Last Admin: 05/30/18 07:36 Dose: 650 mg Acetaminophen (Tylenol) 650 mg PO Q6H PRN PRN Reason: Pain/Fever/DRISCOLL Last Admin: 05/31/18 11:34 Dose: 650 mg Albuterol/Ipratropium (Duoneb 3.0-0.5 Mg/3 Ml) 3 ml NEB Q4H PRN PRN Reason: Shortness Of Breath/wheezing Chlordiazepoxide HCl (Librium) 25 mg PO TID [facility] Last Admin: 06/01/18 09:37 Dose: 25 mg Clonidine HCl (Catapres) 0.1 mg PO Q4H PRN PRN Reason: Agitation Last Admin: 05/31/18 02:01 Dose: 0.1 mg Famotidine (Pepcid) 20 mg IVPUSH BID [facility] Last Admin: 06/01/18 09:38 Dose: 20 mg Hydralazine HCl (Apresoline) 20 mg IVPUSH Q4H PRN PRN Reason: Hypertension Last Admin: 06/01/18 11:46 Dose: 20 mg Hydromorphone HCl (Dilaudid) 2 mg IVPUSH Q6H PRN PRN Reason: Pain (severe 7-10) Last Admin: 06/01/18 04:56 Dose: 1 mg Piperacillin Sod/Tazobactam (Sod 4.5 gm/ Sodium Chloride) 100 mls @ 25 mls/hr IV Q8H [facility] Last Admin: 06/01/18 06:31 Dose: 25 mls/hr Potassium Chloride/Dextrose/Sod Cl (D5 Ns With 20 Meq Kcl) 1,000 mls @ 75 mls/ hr IV ASDIRECTED [facility] Last Admin: 06/01/18 02:46 Dose: 75 mls/hr Lorazepam 40 mg/ Sodium (Chloride) 40 mls @ 5 mls/hr IV ASDIRECTED [facility] Lorazepam (Ativan) 2 mg IVPUSH Q4H PRN PRN Reason: Seizures Lorazepam (Ativan) 0 mg IVPUSH Q4H PRN; Protocol PRN Reason: Anxiety Last Admin: 06/01/18 11:55 Dose: 2 mg Metoprolol Tartrate (Lopressor) 5 mg IVPUSH Q4H PRN PRN Reason: Tachycardia Last Admin: 05/30/18 08:07 Dose: 5 mg Miscellaneous Information (Remove Patch) 1 ea TRDERM DAILY PRN PRN Reason: NICOTINE DEPENDENCE Last Admin: 05/27/18 18:31 Dose: 1 ea Miscellaneous Information (Remove Patch) 1 ea TRDERM Q7D [facility] Nicotine (Habitrol) 21 mg TRDERM DAILY PRN PRN Reason: Nicotine Dependence Last Admin: 05/27/18 21:42 Dose: 21 mg Ondansetron HCl (Zofran) 4 mg IV Q6H PRN PRN Reason: Nausea/Vomiting Quetiapine Fumarate (Seroquel) 25 mg PO BID [facility] Last Admin: 06/01/18 09:37 Dose: 25 mg Thiamine HCl (Vitamin B-1) 100 mg PO DAILY [facility] Last Admin: 06/01/18 09:37 Dose: 100 mg Topiramate (Topamax) 25 mg PO BEDTIME [facility] Last Admin: 05/31/18 20:25 Dose: Not Given Discontinued Medications Bumetanide (Bumex) 0.5 mg IVPUSH ONETIME ONE Stop: 05/31/18 08:16 Last Admin: 05/31/18 08:25 Dose: 0.5 mg Chlordiazepoxide HCl (Librium) 25 mg PO Q8H PRN PRN Reason: Withdrawal Symptoms Last Admin: 05/26/18 06:27 Dose: 25 mg Chlordiazepoxide HCl (Librium) 25 mg PO ONETIME ONE Stop: 05/25/18 22:01 Last Admin: 05/25/18 22:07 Dose: 25 mg Chlordiazepoxide HCl (Librium) 25 mg PO Q8H [facility] Last Admin: 05/28/18 05:02 Dose: 25 mg Chlordiazepoxide HCl (Librium) 25 mg PO Q8H PRN PRN Reason: Withdrawal Symptoms Chlordiazepoxide HCl (Librium) 25 mg PO Q6H PRN PRN Reason: Withdrawal Symptoms Last Admin: 05/28/18 14:59 Dose: 25 mg Chlordiazepoxide HCl (Librium) 50 mg PO Q6H PRN PRN Reason: Withdrawal Symptoms Last Admin: 05/29/18 08:26 Dose: 50 mg Clonidine HCl (Catapres-Tts 3) 0.3 mg TRDERM Q7D [facility] Last Admin: 05/28/18 03:09 Dose: 0.3 mg Al Hydroxide/Mg Hydroxide 30 (ml/ Lidocaine HCl 15 ml) 0 ml PO ONETIME ONE Stop: 05/25/18 16:32 Last Admin: 05/25/18 16:46 Dose: 45 ml Diatrizoate Meglum/Diatrizoate Sod (Gastrografin 37%) 90 ml PO ONETIME ONE Stop: 05/25/18 18:05 Last Admin: 05/25/18 18:16 Dose: 90 ml Diphenhydramine HCl (Benadryl) 50 mg IVPUSH ONETIME ONE Stop: 05/25/18 21:44 Last Admin: 05/25/18 21:54 Dose: 50 mg Folic Acid (Folic Acid) 1 mg PO DAILY [facility] Stop: 05/28/18 09:01 Last Admin: 05/28/18 08:00 Dose: 1 mg Haloperidol Lactate (Haldol) 2 mg IM Q4H PRN PRN Reason: Agitation Haloperidol Lactate (Haldol) 2 mg IM Q4H PRN PRN Reason: Withdrawal Symptoms Last Admin: 05/28/18 15:26 Dose: 2 mg Haloperidol Lactate (Haldol) 5 mg IM Q4H PRN PRN Reason: Withdrawal Symptoms Last Admin: 05/29/18 06:40 Dose: 5 mg Haloperidol Lactate (Haldol) 5 mg IM ONETIME ONE Stop: 05/29/18 09:26 Last Admin: 05/29/18 09:25 Dose: 5 mg Haloperidol Lactate (Haldol) 4 mg IVPUSH STAT STA Stop: 06/01/18 09:28 Last Admin: 06/01/18 09:37 Dose: 4 mg Haloperidol Lactate (Haldol) 4 mg IVPUSH STAT STA Stop: 06/01/18 12:51 Last Admin: 06/01/18 13:00 Dose: 4 mg Hydromorphone HCl (Dilaudid) 1 mg IVPUSH ONETIME [facility]A Stop: 05/25/18 16:48 Last Admin: 05/25/18 17:01 Dose: 1 mg Hydromorphone HCl (Dilaudid) 0.5 mg IVPUSH ONETIME ONE Stop: 05/25/18 19:40 Last Admin: 05/25/18 20:12 Dose: Not Given Hydromorphone HCl (Dilaudid) 1 mg IVPUSH Q4H PRN PRN Reason: Pain (severe 7-10) Last Admin: 05/25/18 21:46 Dose: 1 mg Hydromorphone HCl (Dilaudid) 2 mg IVPUSH Q4H PRN PRN Reason: Pain (severe 7-10) Last Admin: 05/27/18 01:09 Dose: 2 mg Hydromorphone HCl (Dilaudid) 1 mg IVPUSH Q6H PRN PRN Reason: Pain (severe 7-10) Last Admin: 05/28/18 05:48 Dose: 1 mg Hydromorphone HCl (Dilaudid) 0.5 mg IVPUSH Q6H PRN PRN Reason: Pain (severe 7-10) Last Admin: 05/29/18 03:23 Dose: 0.5 mg Sodium Chloride (Normal Saline) 1,000 mls @ 999 mls/hr IV ASDIRECTED [facility] Last Admin: 05/25/18 17:03 Dose: 999 mls/hr Thiamine HCl 100 mg/ Sodium (Chloride) 51 mls @ 100 mls/hr IV ONETIME ONE Stop: 05/25/18 20:30 Last Admin: 05/25/18 20:58 Dose: 100 mls/hr Potassium Chloride/Dextrose/Sod Cl (D5 Ns With 20 Meq Kcl) 1,000 mls @ 175 mls/ hr IV ASDIRECTED [facility] Last Admin: 05/27/18 08:24 Dose: 175 mls/hr Potassium Chloride 10 meq/ (Premix) 100 mls @ 100 mls/hr IV Q1H [facility] Stop: 05/26/18 02:59 Last Admin: 05/26/18 03:11 Dose: 100 mls/hr Potassium Chloride/Dextrose/Sod Cl (D5 Ns With 20 Meq Kcl) 1,000 mls @ 100 mls/ hr IV ASDIRECTED [facility] Last Admin: 05/28/18 01:57 Dose: 100 mls/hr Magnesium Sulfate 4 gm/ Premix 100 mls @ 25 mls/hr IV Q4H [facility] Stop: 05/28/18 15:59 Last Admin: 05/28/18 11:41 Dose: 25 mls/hr Potassium Chloride/Sodium Chloride (Normal Saline With 20 Meq Kcl) 1,000 mls @ 125 mls/hr IV ASDIRECTED [facility] Last Admin: 05/30/18 07:04 Dose: 125 mls/hr Midazolam HCl 50 mg/ Sodium (Chloride) 50 mls @ 0.5 mls/hr IV TITRATE [facility]; Protocol Last Titration: 05/31/18 08:46 Dose: 0 mg/hr, 0 mls/hr Propofol (Diprivan 100 Ml) Confirm Administered Dose 100 mls @ as directed .ROUTE .STK-MED ONE Stop: 05/29/18 15:04 Last Admin: 05/29/18 16:22 Dose: Not Given Propofol (Diprivan 100 Ml) 100 mls @ 2.077 mls/hr IV TITRATE [facility]; Protocol Last Titration: 05/31/18 08:46 Dose: 0 mcg/kg/min, 0 mls/hr Piperacillin Sod/Tazobactam (Sod 4.5 gm/ Sodium Chloride) 100 mls @ 200 mls/hr IV ONETIME ONE Stop: 05/30/18 07:59 Last Admin: 05/30/18 07:32 Dose: 200 mls/hr Magnesium Sulfate 4 gm/ Premix 50 mls @ 12.5 mls/hr IV ONETIME ONE Stop: 05/30/18 13:14 Last Admin: 05/30/18 10:08 Dose: 12.5 mls/hr Magnesium Sulfate 2 gm/ Premix 50 mls @ 25 mls/hr IV ONETIME ONE Stop: 05/30/18 15:59 Last Admin: 05/30/18 14:12 Dose: 25 mls/hr Levofloxacin/Dextrose 750 mg/ (Premix) 150 mls @ 100 mls/hr IV Q24H [facility] Last Admin: 06/01/18 10:50 Dose: Not Given Ibuprofen (Motrin) 600 mg PO Q6H PRN PRN Reason: Pain (moderate 4-6) Iopamidol (Isovue-370 (76%)) 100 ml IV ONETIME ONE Stop: 05/25/18 18:06 Last Admin: 05/25/18 18:18 Dose: 100 ml Ketamine HCl (Ketalar) 50 mg IV ONETIME ONE Stop: 05/29/18 15:24 Last Admin: 05/29/18 15:23 Dose: 50 mg Lorazepam (Ativan) 0 mg IV Q6H PRN; Protocol PRN Reason: Withdrawal Symptoms Last Admin: 05/27/18 23:16 Dose: 1 mg Lorazepam (Ativan) 1 - 3 mg IV ASDIRECTED PRN; Protocol PRN Reason: Withdrawal Symptoms Last Admin: 05/29/18 09:46 Dose: 3 mg Lorazepam (Ativan) Confirm Administered Dose 2 mg .ROUTE .STK-MED ONE Stop: 05/28/18 00:40 Last Admin: 05/28/18 00:57 Dose: Not Given Lorazepam (Ativan) 2 mg IVPUSH ONETIME ONE Stop: 05/28/18 00:41 Last Admin: 05/28/18 00:40 Dose: 2 mg Lorazepam (Ativan) 6 mg IVPUSH STAT STA Stop: 06/01/18 12:51 Last Admin: 06/01/18 13:01 Dose: 6 mg Magnesium Sulfate (Pharmacy To Dose - Magnesium Replacement) 0 dose .XX ASDIRECTED PRN PRN Reason: RX TO WATCH MAG Midazolam HCl (Versed 1 Mg/Ml) Confirm Administered Dose 2 mg .ROUTE .STK-MED ONE Stop: 05/29/18 09:28 Last Admin: 05/29/18 09:30 Dose: 2 mg Midazolam HCl (Versed 5 Mg/Ml) Confirm Administered Dose 25 mg .ROUTE .STK-MED ONE Stop: 05/30/18 19:24 Last Admin: 05/30/18 19:30 Dose: Not Given Miscellaneous Information (Remove Patch) 1 ea TRDERM ONETIME ONE Stop: 05/28/18 20:01 Last Admin: 05/28/18 20:35 Dose: 1 ea Miscellaneous Information (Remove Patch) 1 ea TRDERM ONETIME ONE Stop: 05/28/18 22:01 Last Admin: 05/28/18 21:33 Dose: 1 ea Modafinil (Provigil) 200 mg PO NOW STA Stop: 05/31/18 08:25 Last Admin: 05/31/18 08:39 Dose: 200 mg Multivitamins (Thera) 1 each PO DAILY [facility] Stop: 05/29/18 09:01 Last Admin: 05/29/18 08:26 Dose: 1 each Ondansetron HCl (Zofran Odt) 4 mg PO ONETIME ONE Stop: 05/25/18 16:34 Last Admin: 05/25/18 17:01 Dose: Not Given Ondansetron HCl (Zofran) 4 mg IVPUSH ONETIME ONE Stop: 05/25/18 16:48 Last Admin: 05/25/18 16:59 Dose: 4 mg Oxycodone HCl (Oxycodone) 5 mg PO Q4H PRN PRN Reason: Pain (moderate 4-6) Last Admin: 05/25/18 20:51 Dose: 5 mg Oxycodone HCl (Oxycontin) 20 mg PO Q12HR [facility] Last Admin: 05/28/18 08:01 Dose: Not Given Pantoprazole Sodium (Protonix) 40 mg PO ONETIME ONE Stop: 05/25/18 16:33 Last Admin: 05/25/18 17:05 Dose: Not Given Pantoprazole Sodium (Protonix Iv) 40 mg IVPUSH ONETIME ONE Stop: 05/25/18 16:48 Last Admin: 05/25/18 17:03 Dose: 40 mg Pantoprazole Sodium (Protonix Iv) 40 mg IV Q12HR [facility] Pantoprazole Sodium (Protonix Iv) 40 mg IV Q12HR [facility] Stop: 05/27/18 21:01 Last Admin: 05/27/18 21:40 Dose: 40 mg Pantoprazole Sodium (Protonix) 40 mg PO BID [facility] Last Admin: 05/29/18 08:27 Dose: 40 mg Potassium Chloride (Pharmacy To Dose - Potassium Replacement) 0 dose .XX ASDIRECTED PRN PRN Reason: RX TO WATCH K Quetiapine Fumarate (Seroquel) 50 mg PO BEDTIME [facility] Last Admin: 05/28/18 20:33 Dose: 50 mg Quetiapine Fumarate (Seroquel) 50 mg PO BEDTIME [facility] Rocuronium [place] (Zemuron) 60 mg IVPUSH ONETIME ONE Stop: 05/29/18 15:26 Last Admin: 05/29/18 15:25 Dose: 60 mg Scopolamine (Transderm-Scop) 1.5 mg TRDERM Q72H ONE Stop: 05/25/18 20:01 Last Admin: 05/25/18 20:49 Dose: 1.5 mg Topiramate (Topamax) 25 mg PO BID [facility] Last Admin: 05/29/18 08:25 Dose: 25 mg Topiramate (Topamax) 25 mg PO BID [facility] - Exam Quality Assessment: Supplemental Oxygen, DVT Prophylaxis General: No Acute Distress HEENT: Pupils Equal, Pupils Reactive, EOMI Neck: Trachea Midline, No JVD Lungs: Normal Respiratory Effort Cardiovascular: Regular Rate, Regular Rhythm GI/Abdominal Exam: Normal Bowel Sounds, Soft, Non-Tender, No Organomegaly, No Distention (Male) Exam: Deferred Back Exam: Normal Inspection Extremities: Normal Range of Motion, Non-Tender, No Pedal Edema, Normal Capillary Refill Skin: Warm Neurological: No New Focal Deficit Psy/Mental Status: Agitated, Withdrawal Symptoms - Problem List Review Problem List Initiated/Reviewed/Updated: Yes - My Orders Last 24 Hours: My Active Orders 05/31/18 15:52 LORazepam [Ativan] See Protocol IVPUSH Q4H PRN 05/31/18 15:53 CIWAA Assessment [RC] Q2HR 05/31/18 21:00 Topiramate [Topamax] 25 mg PO BEDTIME chlordiazePOXIDE [Librium] 25 mg PO TID 06/01/18 09:00 QUEtiapine [SEROquel] 25 mg PO BID 06/01/18 13:00 LORazepam 40 mg Sodium Chloride 0.9% [Normal Saline] 20 ml IV ASDIRECTED 06/01/18 13:10 Magnesium Sulfate/Water [Magnesium Sulfate 4 GM in Water 50 ML] 4 gm Premix Bag 1 bag IV ONETIME - Plan Plan:: Assessment/Plan: Acute: POST EXTUBATION DAY 2 Delirium Tremens on Mechanical Ventilator - Severe ETOH Withdrawal - RASS -4; advance to -5 - Plan to hopefully extubate after 48hrs - Continue IV Zosyn and will add Levaquin for aspiration coverage (had a lot for oral secretion during intubation) - Continue IV Propofol and Midazolam drip per paper CIWAA Protocol; if we run out of versed will augment with Ativan drip - CXR shows stable placement of NGT and Tip of ETT; previously had increased density within the left lung base; repeat CXR. ETOH Withdrawal Symptoms w/ Aggression and Combativeness - Carries a hx/o Chronic ETOH Use - Alcoholism is now causing serious health issues - VISHNU is 0.38 - CIWA score 13->20 - Thiamine, Folic Acid, and MVI - Midazolam drip per Protocol (see Manual Provided) - SAC; refused services; we will try again once alert and awake - Hold Tele-psych consult; he is not appropriate at this time - Advised to quit drinking - Discussed option for possible intubation if his aggression/combativeness persists; mom consented Hyponatremia, Continues to Improve - NA 127-->132-->134 2/2 D5W infusion - No episode of seizures observed - Restart D5WNS 0.9% with 20mEq of IVF at 50 cc/hr for glucose maintenance Nicotine Dependence - Smokes Cigarettes: 2ppd - Nicotine patch daily Hypomagnesemia - Mg 1.6-->1.6--> 1.2 - 2/2 NPO status - Replete and monitor Resolved: S/p Hypokalemia - K 3.1-->4.3 - 2/2 GI Loss - Replete and monitor S/p Severe Pancreatitis - Carries a hx/o Chronic ETOH Use/Dependence - 2/2 ETOH Pancreatitis; drinks heavily - VISHNU level is 0.38 - Lipase is 5831-->3801-->1115-->548-->407 - CT scan report reads fairly severe pancreatitis with diffuse surrounding inflammatory change, mild pancreatic edema as well as fluid around the pancreas extending into the paracolic gutter and into the dependent portion of the pelvis. - MIKEY' Criteria: 1 = LHD level of 512-1% predicted Mortality; BISAP score is 0 (Patients with a BISAP Score of 0 had <1% risk of mortality) - Continue IV fluids, pain control, anti-emesis and electrolytes supplement - May start clear liquid diet and advance to soft and regular (nonfatty/ nongreasy meal) as tolerated - Excellent urine output S/p Transaminitis - AST/ALT= 2:1; 138:66-->91:48-->65:37 - 2/2 ETOH Abuse - IV fluids and will avoid acetaminophen Chronic: HTN ETOH Pancreatitis Alcoholism Depression Fatty Liver - 2/2 Chronic ETOH Use - CT Scan report reads prominent fatty infiltration within the liver; seen on CT scan 10/29/2016 as well - NPO for now except ice chips, sips fo water and oral meds - Advised to quit drinking Substance Abuse: Oxycodone, Marijuana, Amphetamine and Meth Plan: He looks comfortable this morning Routine AM Labs Continue CIWA Protocol GI/DVT PPx: PPI/SCDs SW/CM for d/c planning Additional orders as above Code status:1 LOS anticipate > 96hrs due patient is on mechanical ventilator; tolerating extubation. Advance diet as tolerated. Psych/SA consults, TBD.
[2018-06-01] MEDS ORDERED: diazePAM 5 MG/ML-2ml Syringe IV ONE (16:34)
[2018-06-01] MEDS: Famotidine 20 MG Tab PO SCH (20:46)
[2018-06-01] MEDS: Topiramate 25 MG Tab PO SCH (20:46)
[2018-06-02] MEDS: Dextrose 5%-0.9% NaCl with KCl 1,000 ML IV SCH ×2 (05:19→18:47)
[2018-06-02] MEDS: Piperacillin/Tazobactam 4.5 GM in Sodium Chloride 0.9% 100 ML IV SCH ×3 (06:48→22:34)
[2018-06-02] MEDS: hydrALAZINE 20 MG/ML SDV IVPUSH PRN ×2 (08:21→20:14)
[2018-06-02] MEDS: chlordiazePOXIDE 25 MG Cap PO SCH ×4 (09:17→20:14)
[2018-06-02] MEDS: QUEtiapine 25 MG Tab PO SCH ×3 (09:19→20:15)
[2018-06-02] MEDS: Thiamine 100 MG Tab PO SCH (09:19)
[2018-06-02] MEDS: Famotidine 20 MG Tab PO SCH ×3 (09:19→20:15)
[2018-06-02] MEDS: cloNIDine 0.1 MG Tab PO PRN (12:24)
[2018-06-02] MEDS ORDERED: Magnesium Sulfate/Water 4 GM in Premix Bag 1 BAG IV ONE (13:00)
[2018-06-02] MEDS: guaiFENesin 600 MG Tab.ER PO SCH ×2 (14:48→20:15)
--- NOTE | 2018-06-02 15:28 | PCM.PN ---
- General Info Date of Service: 06/02/18 Functional Status: Reports: Urinating - Review of Systems General: Reports: No Symptoms HEENT: Reports: No Symptoms Pulmonary: Reports: No Symptoms Cardiovascular: Reports: No Symptoms Gastrointestinal: Reports: No Symptoms Genitourinary: Reports: No Symptoms Musculoskeletal: Reports: No Symptoms Skin: Reports: No Symptoms Neurological: Reports: Confusion Psychiatric: Reports: Mood Lability, Anxiety, Agitation, Hallucinations - Patient Data Vitals - Most Recent: Last Vital Signs Temp 36.9 C 06/02/18 12:00 Pulse 75 06/02/18 04:00 Resp 23 H 06/02/18 13:00 BP 159/82 H 06/02/18 12:24 Pulse Ox 94 L 06/02/18 13:00 Weight - Most Recent: 68.765 kg I&O - Last 24 Hours: Intake & Output 06/02/18 06/02/18 06/02/18 06:59 14:59 22:59 Intake Total 982 200 Output Total 295 725 Balance 687 -525 Lab Results Last 24 Hours: Laboratory Results - last 24 hr 06/01/18 06/01/18 06/02/18 Range/Units 18:25 23:32 05:26 WBC (4.23-9.07) K/mm3 RBC (4.63-6.08) M/mm3 Hgb (13.7-17.5) gm/L Hct (40.1-51.0) % MCV (79.0-92.2) fl MCH (25.7-32.2) pg MCHC (32.2-35.5) g/dl RDW Std Deviation (35.1-43.9) fL Plt Count (163-337) K/mm3 MPV (9.4-12.3) fl Neut % (Auto) (34.0-67.9) % Lymph % (Auto) (21.8-53.1) % [place] % (Auto) (5.3-12.2) % Eos % (Auto) (0.8-7.0) Baso % (Auto) (0.1-1.2) % Neut # (Auto) (1.78-5.38) K/mm3 Lymph # (Auto) (1.32-3.57) K/mm3 [place] # (Auto) (0.30-0.82) K/mm3 Eos # (Auto) (0.04-0.54) K/mm3 Baso # (Auto) (0.01-0.08) K/mm3 Manual Slide Review Sodium 139 (136-145) mEq/L Potassium 3.5 (3.5-5.1) mEq/L Chloride 105 (98-107) mEq/L Carbon Dioxide 22 (21-32) mEq/L Anion Gap 15.5 H (5-15) BUN 7 (7-18) mg/dL Creatinine 0.8 (0.7-1.3) mg/dL Est Cr Clr Drug Dosing 125.35 mL/min Estimated GFR (MDRD) > 60 (>60) mL/min BUN/Creatinine Ratio 8.8 L (14-18) Glucose 106 (74-106) mg/dL POC Glucose 107 H 122 H (70-105) mg/dL Calcium 9.0 (8.5-10.1) mg/dL Magnesium 1.7 L (1.8-2.4) mg/dl 06/02/18 06/02/18 Range/Units 05:26 12:08 WBC 7.40 (4.23-9.07) K/mm3 RBC 4.03 L (4.63-6.08) M/mm3 Hgb 12.1 L (13.7-17.5) gm/L Hct 35.8 L (40.1-51.0) % MCV 88.8 (79.0-92.2) fl MCH 30.0 (25.7-32.2) pg MCHC 33.8 (32.2-35.5) g/dl RDW Std Deviation 43.2 (35.1-43.9) fL Plt Count 340 H (163-337) K/mm3 MPV 11.0 (9.4-12.3) fl Neut % (Auto) 55.5 (34.0-67.9) % Lymph % (Auto) 19.3 L (21.8-53.1) % [place] % (Auto) 22.0 H (5.3-12.2) % Eos % (Auto) 1.9 (0.8-7.0) Baso % (Auto) 0.5 (0.1-1.2) % Neut # (Auto) 4.10 (1.78-5.38) K/mm3 Lymph # (Auto) 1.43 (1.32-3.57) K/mm3 [place] # (Auto) 1.63 H (0.30-0.82) K/mm3 Eos # (Auto) 0.14 (0.04-0.54) K/mm3 Baso # (Auto) 0.04 (0.01-0.08) K/mm3 Manual Slide Review Abnormal smear Sodium (136-145) mEq/L Potassium (3.5-5.1) mEq/L Chloride (98-107) mEq/L Carbon Dioxide (21-32) mEq/L Anion Gap (5-15) BUN (7-18) mg/dL Creatinine (0.7-1.3) mg/dL Est Cr Clr Drug Dosing mL/min Estimated GFR (MDRD) (>60) mL/min BUN/Creatinine Ratio (14-18) Glucose (74-106) mg/dL POC Glucose 121 H (70-105) mg/dL Calcium (8.5-10.1) mg/dL Magnesium (1.8-2.4) mg/dl [facility] Results Last 24 Hours: Microbiology 05/30/18 06:55 Aerobic Blood Culture - Preliminary Blood - Venous NO GROWTH AFTER 3 DAYS Anaerobic Blood Culture - Preliminary NO GROWTH AFTER 3 DAYS 05/30/18 07:05 Aerobic Blood Culture - Preliminary Blood - Venous - Lab Draw NO GROWTH AFTER 3 DAYS Anaerobic Blood Culture - Preliminary NO GROWTH AFTER 3 DAYS 05/30/18 06:50 Urine Culture - Final Urine, [place] Cath (Indwelling) NO GROWTH AFTER 2 DAYS Med Orders - Current: Current Medications Acetaminophen (Tylenol) 650 mg RECTAL Q6H PRN PRN Reason: Pain/Fever/DRISCOLL Last Admin: 05/30/18 07:36 Dose: 650 mg Acetaminophen (Tylenol) 650 mg PO Q6H PRN PRN Reason: Pain/Fever/DRISCOLL Last Admin: 05/31/18 11:34 Dose: 650 mg Albuterol/Ipratropium (Duoneb 3.0-0.5 Mg/3 Ml) 3 ml NEB Q4H PRN PRN Reason: Shortness Of Breath/wheezing Chlordiazepoxide HCl (Librium) 25 mg PO TID [facility] Last Admin: 06/02/18 14:48 Dose: Not Given Clonidine HCl (Catapres) 0.1 mg PO Q4H PRN PRN Reason: Agitation Last Admin: 06/02/18 12:24 Dose: 0.1 mg Famotidine (Pepcid) 20 mg PO BID [facility] Last Admin: 06/02/18 12:25 Dose: 20 mg Guaifenesin (Mucinex) 600 mg PO BID [facility] Last Admin: 06/02/18 14:48 Dose: 600 mg Hydralazine HCl (Apresoline) 20 mg IVPUSH Q4H PRN PRN Reason: Hypertension Last Admin: 06/02/18 08:21 Dose: 20 mg Hydromorphone HCl (Dilaudid) 2 mg IVPUSH Q6H PRN PRN Reason: Pain (severe 7-10) Last Admin: 06/01/18 21:36 Dose: 2 mg Piperacillin Sod/Tazobactam (Sod 4.5 gm/ Sodium Chloride) 100 mls @ 25 mls/hr IV Q8H [facility] Last Admin: 06/02/18 06:48 Dose: 25 mls/hr Potassium Chloride/Dextrose/Sod Cl (D5 Ns With 20 Meq Kcl) 1,000 mls @ 75 mls/ hr IV ASDIRECTED [facility] Last Admin: 06/02/18 05:19 Dose: 75 mls/hr Lorazepam 40 mg/ Sodium (Chloride) 40 mls @ 5 mls/hr IV ASDIRECTED [facility] Last Admin: 06/02/18 08:20 Dose: 5 mls/hr Magnesium Sulfate 4 gm/ Premix 50 mls @ 12.5 mls/hr IV ONETIME ONE Stop: 06/02/18 16:59 Last Admin: 06/02/18 13:09 Dose: 12.5 mls/hr Lorazepam (Ativan) 2 mg IVPUSH Q4H PRN PRN Reason: Seizures Lorazepam (Ativan) 0 mg IVPUSH Q4H PRN; Protocol PRN Reason: Anxiety Last Admin: 06/01/18 11:55 Dose: 2 mg Metoprolol Tartrate (Lopressor) 5 mg IVPUSH Q4H PRN PRN Reason: Tachycardia Last Admin: 05/30/18 08:07 Dose: 5 mg Miscellaneous Information (Remove Patch) 1 ea TRDERM DAILY PRN PRN Reason: NICOTINE DEPENDENCE Last Admin: 05/27/18 18:31 Dose: 1 ea Miscellaneous Information (Remove Patch) 1 ea TRDERM Q7D [facility] Nicotine (Habitrol) 21 mg TRDERM DAILY PRN PRN Reason: Nicotine Dependence Last Admin: 05/27/18 21:42 Dose: 21 mg Ondansetron HCl (Zofran) 4 mg IV Q6H PRN PRN Reason: Nausea/Vomiting Quetiapine Fumarate (Seroquel) 25 mg PO BID [facility] Last Admin: 06/02/18 12:25 Dose: 25 mg Thiamine HCl (Vitamin B-1) 100 mg PO DAILY [facility] Last Admin: 06/02/18 09:19 Dose: Not Given Topiramate (Topamax) 25 mg PO BEDTIME [facility] Last Admin: 06/01/18 20:46 Dose: Not Given Discontinued Medications Bumetanide (Bumex) 0.5 mg IVPUSH ONETIME ONE Stop: 05/31/18 08:16 Last Admin: 05/31/18 08:25 Dose: 0.5 mg Chlordiazepoxide HCl (Librium) 25 mg PO Q8H PRN PRN Reason: Withdrawal Symptoms Last Admin: 05/26/18 06:27 Dose: 25 mg Chlordiazepoxide HCl (Librium) 25 mg PO ONETIME ONE Stop: 05/25/18 22:01 Last Admin: 05/25/18 22:07 Dose: 25 mg Chlordiazepoxide HCl (Librium) 25 mg PO Q8H [facility] Last Admin: 05/28/18 05:02 Dose: 25 mg Chlordiazepoxide HCl (Librium) 25 mg PO Q8H PRN PRN Reason: Withdrawal Symptoms Chlordiazepoxide HCl (Librium) 25 mg PO Q6H PRN PRN Reason: Withdrawal Symptoms Last Admin: 05/28/18 14:59 Dose: 25 mg Chlordiazepoxide HCl (Librium) 50 mg PO Q6H PRN PRN Reason: Withdrawal Symptoms Last Admin: 05/29/18 08:26 Dose: 50 mg Clonidine HCl (Catapres-Tts 3) 0.3 mg TRDERM Q7D [facility] Last Admin: 05/28/18 03:09 Dose: 0.3 mg Al Hydroxide/Mg Hydroxide 30 (ml/ Lidocaine HCl 15 ml) 0 ml PO ONETIME ONE Stop: 05/25/18 16:32 Last Admin: 05/25/18 16:46 Dose: 45 ml Diatrizoate Meglum/Diatrizoate Sod (Gastrografin 37%) 90 ml PO ONETIME ONE Stop: 05/25/18 18:05 Last Admin: 05/25/18 18:16 Dose: 90 ml Diazepam (Valium) 5 mg IV STAT ONE Stop: 06/01/18 16:35 Last Admin: 06/01/18 16:52 Dose: 5 mg Diphenhydramine HCl (Benadryl) 50 mg IVPUSH ONETIME ONE Stop: 05/25/18 21:44 Last Admin: 05/25/18 21:54 Dose: 50 mg Famotidine (Pepcid) 20 mg IVPUSH BID [facility] Last Admin: 06/01/18 09:38 Dose: 20 mg Folic Acid (Folic Acid) 1 mg PO DAILY [facility] Stop: 05/28/18 09:01 Last Admin: 05/28/18 08:00 Dose: 1 mg Haloperidol Lactate (Haldol) 2 mg IM Q4H PRN PRN Reason: Agitation Haloperidol Lactate (Haldol) 2 mg IM Q4H PRN PRN Reason: Withdrawal Symptoms Last Admin: 05/28/18 15:26 Dose: 2 mg Haloperidol Lactate (Haldol) 5 mg IM Q4H PRN PRN Reason: Withdrawal Symptoms Last Admin: 05/29/18 06:40 Dose: 5 mg Haloperidol Lactate (Haldol) 5 mg IM ONETIME ONE Stop: 05/29/18 09:26 Last Admin: 05/29/18 09:25 Dose: 5 mg Haloperidol Lactate (Haldol) 4 mg IVPUSH STAT STA Stop: 06/01/18 09:28 Last Admin: 06/01/18 09:37 Dose: 4 mg Haloperidol Lactate (Haldol) 4 mg IVPUSH STAT STA Stop: 06/01/18 12:51 Last Admin: 06/01/18 13:00 Dose: 4 mg Hydromorphone HCl (Dilaudid) 1 mg IVPUSH ONETIME STA Stop: 05/25/18 16:48 Last Admin: 05/25/18 17:01 Dose: 1 mg Hydromorphone HCl (Dilaudid) 0.5 mg IVPUSH ONETIME ONE Stop: 05/25/18 19:40 Last Admin: 05/25/18 20:12 Dose: Not Given Hydromorphone HCl (Dilaudid) 1 mg IVPUSH Q4H PRN PRN Reason: Pain (severe 7-10) Last Admin: 05/25/18 21:46 Dose: 1 mg Hydromorphone HCl (Dilaudid) 2 mg IVPUSH Q4H PRN PRN Reason: Pain (severe 7-10) Last Admin: 05/27/18 01:09 Dose: 2 mg Hydromorphone HCl (Dilaudid) 1 mg IVPUSH Q6H PRN PRN Reason: Pain (severe 7-10) Last Admin: 05/28/18 05:48 Dose: 1 mg Hydromorphone HCl (Dilaudid) 0.5 mg IVPUSH Q6H PRN PRN Reason: Pain (severe 7-10) Last Admin: 05/29/18 03:23 Dose: 0.5 mg Sodium Chloride (Normal Saline) 1,000 mls @ 999 mls/hr IV [facility] Last Admin: 05/25/18 17:03 Dose: 999 mls/hr Thiamine HCl 100 mg/ Sodium (Chloride) 51 mls @ 100 mls/hr IV ONETIME ONE Stop: 05/25/18 20:30 Last Admin: 05/25/18 20:58 Dose: 100 mls/hr Potassium Chloride/Dextrose/Sod Cl (D5 Ns With 20 Meq Kcl) 1,000 mls @ 175 mls/ hr IV [facility] Last Admin: 05/27/18 08:24 Dose: 175 mls/hr Potassium Chloride 10 meq/ (Premix) 100 mls @ 100 mls/hr IV Q1H [facility] Stop: 05/26/18 02:59 Last Admin: 05/26/18 03:11 Dose: 100 mls/hr Potassium Chloride/Dextrose/Sod Cl (D5 Ns With 20 Meq Kcl) 1,000 mls @ 100 [facility]ls[facility] Last Admin: 05/28/18 01:57 Dose: 100 mls/hr Magnesium Sulfate 4 gm/ Premix 100 mls @ 25 mls/hr IV Q4H [facility] Stop: 05/28/18 15:59 Last Admin: 05/28/18 11:41 Dose: 25 mls/hr Potassium Chloride/Sodium Chloride (Normal Saline With 20 Meq Kcl) 1,000 mls @ 125 mls/hr IV ASDIRECTED [facility] Last Admin: 05/30/18 07:04 Dose: 125 mls/hr Midazolam HCl 50 mg/ Sodium (Chloride) 50 mls @ 0.5 mls/hr IV TITRATE [facility]; Protocol Last Titration: 05/31/18 08:46 Dose: 0 mg/hr, 0 mls/hr Propofol (Diprivan 100 Ml) Confirm Administered Dose 100 mls @ as directed .ROUTE .STK-MED ONE Stop: 05/29/18 15:04 Last Admin: 05/29/18 16:22 Dose: Not Given Propofol (Diprivan 100 Ml) 100 mls @ 2.077 mls/hr IV TITRATE [facility]; Protocol Last Titration: 05/31/18 08:46 Dose: 0 mcg/kg/min, 0 mls/hr Piperacillin Sod/Tazobactam (Sod 4.5 gm/ Sodium Chloride) 100 mls @ 200 mls/hr IV ONETIME ONE Stop: 05/30/18 07:59 Last Admin: 05/30/18 07:32 Dose: 200 mls/hr Magnesium Sulfate 4 gm/ Premix 50 mls @ 12.5 mls/hr IV ONETIME ONE Stop: 05/30/18 13:14 Last Admin: 05/30/18 10:08 Dose: 12.5 mls/hr Magnesium Sulfate 2 gm/ Premix 50 mls @ 25 mls/hr IV ONETIME ONE Stop: 05/30/18 15:59 Last Admin: 05/30/18 14:12 Dose: 25 mls/hr Levofloxacin/Dextrose 750 mg/ (Premix) 150 mls @ 100 mls/hr IV Q24H [facility] Last Admin: 06/01/18 10:50 Dose: Not Given Magnesium Sulfate 4 gm/ Premix 50 mls @ 150 mls/hr IV ONETIME ONE Stop: 06/01/18 13:11 Last Admin: 06/01/18 13:53 Dose: 150 mls/hr Ibuprofen (Motrin) 600 mg PO Q6H PRN PRN Reason: Pain (moderate 4-6) Iopamidol (Isovue-370 (76%)) 100 ml IV ONETIME ONE Stop: 05/25/18 18:06 Last Admin: 05/25/18 18:18 Dose: 100 ml Ketamine HCl (Ketalar) 50 mg IV ONETIME ONE Stop: 05/29/18 15:24 Last Admin: 05/29/18 15:23 Dose: 50 mg Lorazepam (Ativan) 0 mg IV Q6H PRN; Protocol PRN Reason: Withdrawal Symptoms Last Admin: 05/27/18 23:16 Dose: 1 mg Lorazepam (Ativan) 1 - 3 mg IV ASDIRECTED PRN; Protocol PRN Reason: Withdrawal Symptoms Last Admin: 05/29/18 09:46 Dose: 3 mg Lorazepam (Ativan) Confirm Administered Dose 2 mg .ROUTE .STK-MED ONE Stop: 05/28/18 00:40 Last Admin: 05/28/18 00:57 Dose: Not Given Lorazepam (Ativan) 2 mg IVPUSH ONETIME ONE Stop: 05/28/18 00:41 Last Admin: 05/28/18 00:40 Dose: 2 mg Lorazepam (Ativan) 6 mg IVPUSH STAT STA Stop: 06/01/18 12:51 Last Admin: 06/01/18 13:01 Dose: 6 mg Magnesium Sulfate (Pharmacy To Dose - Magnesium Replacement) 0 dose .XX ASDIRECTED PRN PRN Reason: RX TO WATCH MAG Midazolam HCl (Versed 1 Mg/Ml) Confirm Administered Dose 2 mg .ROUTE .STK-MED ONE Stop: 05/29/18 09:28 Last Admin: 05/29/18 09:30 Dose: 2 mg Midazolam HCl (Versed 5 Mg/Ml) Confirm Administered Dose 25 mg .ROUTE .STK-MED ONE Stop: 05/30/18 19:24 Last Admin: 05/30/18 19:30 Dose: Not Given Miscellaneous Information (Remove Patch) 1 ea TRDERM ONETIME ONE Stop: 05/28/18 20:01 Last Admin: 05/28/18 20:35 Dose: 1 ea Miscellaneous Information (Remove Patch) 1 ea TRDERM ONETIME ONE Stop: 05/28/18 22:01 Last Admin: 05/28/18 21:33 Dose: 1 ea Modafinil (Provigil) 200 mg PO NOW STA Stop: 05/31/18 08:25 Last Admin: 05/31/18 08:39 Dose: 200 mg Multivitamins (Thera) 1 each PO DAILY [facility] Stop: 05/29/18 09:01 Last Admin: 05/29/18 08:26 Dose: 1 each Ondansetron HCl (Zofran Odt) 4 mg PO ONETIME ONE Stop: 05/25/18 16:34 Last Admin: 05/25/18 17:01 Dose: Not Given Ondansetron HCl (Zofran) 4 mg IVPUSH ONETIME ONE Stop: 05/25/18 16:48 Last Admin: 05/25/18 16:59 Dose: 4 mg Oxycodone HCl (Oxycodone) 5 mg PO Q4H PRN PRN Reason: Pain (moderate 4-6) Last Admin: 05/25/18 20:51 Dose: 5 mg Oxycodone HCl (Oxycontin) 20 mg PO Q12HR [facility] Last Admin: 05/28/18 08:01 Dose: Not Given Pantoprazole Sodium (Protonix) 40 mg PO ONETIME ONE Stop: 05/25/18 16:33 Last Admin: 05/25/18 17:05 Dose: Not Given Pantoprazole Sodium (Protonix Iv) 40 mg IVPUSH ONETIME ONE Stop: 05/25/18 16:48 Last Admin: 05/25/18 17:03 Dose: 40 mg Pantoprazole Sodium (Protonix Iv) 40 mg IV Q12HR [facility] Pantoprazole Sodium (Protonix Iv) 40 mg IV Q12HR [facility] Stop: 05/27/18 21:01 Last Admin: 05/27/18 21:40 Dose: 40 mg Pantoprazole Sodium (Protonix) 40 mg PO BID [facility] Last Admin: 05/29/18 08:27 Dose: 40 mg Potassium Chloride (Pharmacy To Dose - Potassium Replacement) 0 dose .XX ASDIRECTED PRN PRN Reason: RX TO WATCH K Quetiapine Fumarate (Seroquel) 50 mg PO BEDTIME [facility] Last Admin: 05/28/18 20:33 Dose: 50 mg Quetiapine Fumarate (Seroquel) 50 mg PO BEDTIME [facility] Rocuronium Robbins (Zemuron) 60 mg IVPUSH ONETIME ONE Stop: 05/29/18 15:26 Last Admin: 05/29/18 15:25 Dose: 60 mg Scopolamine (Transderm-Scop) 1.5 mg TRDERM Q72H ONE Stop: 05/25/18 20:01 Last Admin: 05/25/18 20:49 Dose: 1.5 mg Topiramate (Topamax) 25 mg PO BID [facility] Last Admin: 05/29/18 08:25 Dose: 25 mg Topiramate (Topamax) 25 mg PO BID [facility] - Exam Quality Assessment: Supplemental Oxygen, Urine Catheter, DVT Prophylaxis General: Sedated HEENT: Pupils Equal, Pupils Reactive Neck: Trachea Midline, No JVD Lungs: Normal Respiratory Effort Cardiovascular: Regular Rate, Regular Rhythm GI/Abdominal Exam: Normal Bowel Sounds, Soft, Non-Tender, No Organomegaly, No Distention (Male) Exam: Deferred Back Exam: Normal Inspection Extremities: Normal Inspection, Non-Tender, Normal Capillary Refill Skin: Warm Neurological: No New Focal Deficit Psy/Mental Status: Labile Mood, Anxious, Agitated, Withdrawal Symptoms - Problem List Review Problem List Initiated/Reviewed/Updated: Yes - My Orders Last 24 Hours: My Active Orders 06/01/18 21:00 Famotidine [Pepcid] 20 mg PO BID 06/02/18 13:00 Magnesium Sulfate/Water [Magnesium Sulfate 4 GM in Water 50 ML] 4 gm Premix Bag 1 bag IV ONETIME 06/02/18 14:30 guaiFENesin [Mucinex] 600 mg PO BID - Plan Plan:: Assessment/Plan: Acute: POST EXTUBATION DAY 3 HALDOL/ATIVAN USE FOR ACUTE ETOH WITHDRAWAL/CHRONIC DEPENDENCE WITH SEVERE AGITATION, UNABLE TO REDIRECT. Original Note: Delirium Tremens on Mechanical Ventilator - Severe ETOH Withdrawal - RASS -4; advance to -5 - Plan to hopefully extubate after 48hrs - Continue IV Zosyn and will add Levaquin for aspiration coverage (had a lot for oral secretion during intubation) - Continue IV Propofol and Midazolam drip per paper CIWAA Protocol; if we run out of versed will augment with Ativan drip - CXR shows stable placement of NGT and Tip of ETT; previously had increased density within the left lung base; repeat CXR. ETOH Withdrawal Symptoms w/ Aggression and Combativeness - Carries a hx/o Chronic ETOH Use - Alcoholism is now causing serious health issues - VISHNU is 0.38 - CIWA score 13->20 - Thiamine, Folic Acid, and MVI - Midazolam drip per Protocol (see Manual Provided) - SAC; refused services; we will try again once alert and awake - Hold Tele-psych consult; he is not appropriate at this time - Advised to quit drinking - Discussed option for possible intubation if his aggression/combativeness persists; mom consented Hyponatremia, Continues to Improve - NA 127-->132-->134 2/2 D5W infusion - No episode of seizures observed - Restart D5WNS 0.9% with 20mEq of IVF at 50 cc/hr for glucose maintenance Nicotine Dependence - Smokes Cigarettes: 2ppd - Nicotine patch daily Hypomagnesemia - Mg 1.6-->1.6--> 1.2 - 2/2 NPO status - Replete and monitor Resolved: S/p Hypokalemia - K 3.1-->4.3 - 2/2 GI Loss - Replete and monitor S/p Severe Pancreatitis - Carries a hx/o Chronic ETOH Use/Dependence - 2/2 ETOH Pancreatitis; drinks heavily - VISHNU level is 0.38 - Lipase is 5831-->3801-->1115-->548-->407 - CT scan report reads fairly severe pancreatitis with diffuse surrounding inflammatory change, mild pancreatic edema as well as fluid around the pancreas extending into the paracolic gutter and into the dependent portion of the pelvis. - MIKEY' Criteria: 1 = LHD level of 512-1% predicted Mortality; BISAP score is 0 (Patients with a BISAP Score of 0 had <1% risk of mortality) - Continue IV fluids, pain control, anti-emesis and electrolytes supplement - May start clear liquid diet and advance to soft and regular (nonfatty/ nongreasy meal) as tolerated - Excellent urine output S/p Transaminitis - AST/ALT= 2:1; 138:66-->91:48-->65:37 - 2/2 ETOH Abuse - IV fluids and will avoid acetaminophen Chronic: HTN ETOH Pancreatitis Alcoholism Depression Fatty Liver - 2/2 Chronic ETOH Use - CT Scan report reads prominent fatty infiltration within the liver; seen on CT scan 10/29/2016 as well - NPO for now except ice chips, sips fo water and oral meds - Advised to quit drinking Substance Abuse: Oxycodone, Marijuana, Amphetamine and Meth Plan: He looks comfortable this morning Routine AM Labs Continue CIWA Protocol GI/DVT PPx: PPI/SCDs SW/CM for d/c planning Additional orders as above Code status:1 LOS anticipate > 96hrs due patient is on mechanical ventilator; tolerating extubation. Advance diet as tolerated. Psych/SA consults, TBD.
[2018-06-02] MEDS: Topiramate 25 MG Tab PO SCH (20:15)
[2018-06-02] MEDS ORDERED: chlordiazePOXIDE 25 MG Cap PO ONE (20:46)
[2018-06-02] MEDS ORDERED: QUEtiapine 25 MG Tab PO SCH (21:00)
[2018-06-02] MEDS: Haloperidol Lactate 5 MG/ML SDV IVPUSH SCH (23:24)
[2018-06-03] MEDS: LORazepam 2 MG/ML SDV IVPUSH PRN ×5 (00:47→20:08)
[2018-06-03] MEDS: Piperacillin/Tazobactam 4.5 GM in Sodium Chloride 0.9% 100 ML IV SCH ×3 (06:51→23:22)
[2018-06-03] MEDS: Haloperidol Lactate 5 MG/ML SDV IVPUSH SCH ×3 (08:10→23:22)
[2018-06-03] MEDS: Dextrose 5%-0.9% NaCl with KCl 1,000 ML IV SCH ×2 (08:14→20:41)
[2018-06-03] MEDS: Famotidine 20 MG Tab PO SCH ×2 (08:31→22:12)
[2018-06-03] MEDS: Thiamine 100 MG Tab PO SCH (08:32)
[2018-06-03] MEDS: QUEtiapine 25 MG Tab PO SCH ×2 (08:32→21:06)
[2018-06-03] MEDS: guaiFENesin 600 MG Tab.ER PO SCH ×2 (08:32→22:12)
[2018-06-03] MEDS: chlordiazePOXIDE 25 MG Cap PO SCH ×3 (08:48→22:11)
[2018-06-03] MEDS ORDERED: Scopolamine 1.5 MG Transdermal Patch TOP ONE (09:56)
--- NOTE | 2018-06-03 11:05 | CR ---
Chest: Portable view of the chest was obtained. Comparison: Prior chest x-ray of 06/01/18. Minimal residual density within the left retrocardiac region is seen with findings being improved from previous exam. Lung markings are slightly increased which appear to be stable. Lungs otherwise are clear. Heart size and mediastinum are normal. Bony structures are unremarkable. Impression: 1. Improved findings within the left lung base. Other portions of the chest are stable. Diagnostic code #2
[2018-06-03] MEDS: hydrALAZINE 20 MG/ML SDV IVPUSH PRN ×2 (12:30→16:50)
[2018-06-03] MEDS: diazePAM 5 MG/ML-2ml Syringe IV SCH (14:48)
--- NOTE | 2018-06-03 17:10 | PCM.PN ---
- General Info Date of Service: 06/03/18 Functional Status: Reports: Tolerating Diet, Urinating - Review of Systems General: Reports: Weakness HEENT: Reports: No Symptoms Pulmonary: Reports: No Symptoms Cardiovascular: Reports: No Symptoms Gastrointestinal: Reports: No Symptoms Genitourinary: Reports: No Symptoms Musculoskeletal: Reports: No Symptoms Skin: Reports: No Symptoms Neurological: Reports: Confusion Psychiatric: Reports: Mood Lability, Anxiety, Agitation - Patient Data Vitals - Most Recent: Last Vital Signs Temp 36.6 C 06/03/18 16:00 Pulse 76 06/03/18 04:00 Resp 15 06/03/18 16:00 BP 144/98 H 06/03/18 16:00 Pulse Ox 94 L 06/03/18 16:00 Weight - Most Recent: 66.2 kg I&O - Last 24 Hours: Intake & Output 06/03/18 06/03/18 06/03/18 06:59 14:59 22:59 Intake Total 1197 175 958 Output Total 825 750 500 Balance 372 -575 458 Lab Results Last 24 Hours: Laboratory Results - last 24 hr 06/02/18 06/03/18 06/03/18 Range/Units 18:03 00:30 06:03 WBC (4.23-9.07) K/mm3 RBC (4.63-6.08) M/mm3 Hgb (13.7-17.5) gm/L Hct (40.1-51.0) % MCV (79.0-92.2) fl MCH (25.7-32.2) pg MCHC (32.2-35.5) g/dl RDW Std Deviation (35.1-43.9) fL Plt Count (163-337) K/mm3 MPV (9.4-12.3) fl Neut % (Auto) (34.0-67.9) % Lymph % (Auto) (21.8-53.1) % Loving % (Auto) (5.3-12.2) % Eos % (Auto) (0.8-7.0) Baso % (Auto) (0.1-1.2) % Neut # (Auto) (1.78-5.38) K/mm3 Lymph # (Auto) (1.32-3.57) K/mm3 Loving # (Auto) (0.30-0.82) K/mm3 Eos # (Auto) (0.04-0.54) K/mm3 Baso # (Auto) (0.01-0.08) K/mm3 Manual Slide Review Sodium (136-145) mEq/L Potassium (3.5-5.1) mEq/L Chloride (98-107) mEq/L Carbon Dioxide (21-32) mEq/L Anion Gap (5-15) BUN (7-18) mg/dL Creatinine (0.7-1.3) mg/dL Est Cr Clr Drug Dosing mL/min Estimated GFR (MDRD) (>60) mL/min BUN/Creatinine Ratio (14-18) Glucose (74-106) mg/dL POC Glucose 114 H 113 H 103 (70-105) mg/dL Calcium (8.5-10.1) mg/dL Magnesium (1.8-2.4) mg/dl 06/03/18 06/03/18 06/03/18 Range/Units 06:05 06:05 12:14 WBC 8.90 (4.23-9.07) K/mm3 RBC 4.17 L (4.63-6.08) M/mm3 Hgb 12.3 L (13.7-17.5) gm/L Hct 36.7 L (40.1-51.0) % MCV 88.0 (79.0-92.2) fl MCH 29.5 (25.7-32.2) pg MCHC 33.5 (32.2-35.5) g/dl RDW Std Deviation 42.5 (35.1-43.9) fL Plt Count 414 H (163-337) K/mm3 MPV 11.0 (9.4-12.3) fl Neut % (Auto) 62.1 (34.0-67.9) % Lymph % (Auto) 14.2 L (21.8-53.1) % Loving % (Auto) 20.7 H (5.3-12.2) % Eos % (Auto) 0.9 (0.8-7.0) Baso % (Auto) 0.6 (0.1-1.2) % Neut # (Auto) 5.54 H (1.78-5.38) K/mm3 Lymph # (Auto) 1.26 L (1.32-3.57) K/mm3 Loving # (Auto) 1.84 H (0.30-0.82) K/mm3 Eos # (Auto) 0.08 (0.04-0.54) K/mm3 Baso # (Auto) 0.05 (0.01-0.08) K/mm3 Manual Slide Review Abnormal smear Sodium 138 (136-145) mEq/L Potassium 3.8 (3.5-5.1) mEq/L Chloride 106 (98-107) mEq/L Carbon Dioxide 20 L (21-32) mEq/L Anion Gap 15.8 H (5-15) BUN 6 L (7-18) mg/dL Creatinine 0.8 (0.7-1.3) mg/dL Est Cr Clr Drug Dosing 120.68 mL/min Estimated GFR (MDRD) > 60 (>60) mL/min BUN/Creatinine Ratio 7.5 L (14-18) Glucose 119 H (74-106) mg/dL POC Glucose 110 H (70-105) mg/dL Calcium 9.0 (8.5-10.1) mg/dL Magnesium 1.7 L (1.8-2.4) mg/dl [facility] Results Last 24 Hours: Microbiology 05/30/18 06:55 Aerobic Blood Culture - Preliminary Blood - Venous NO GROWTH AFTER 4 DAYS Anaerobic Blood Culture - Preliminary NO GROWTH AFTER 4 DAYS 05/30/18 07:05 Aerobic Blood Culture - Preliminary Blood - Venous - Lab Draw NO GROWTH AFTER 4 DAYS Anaerobic Blood Culture - Preliminary NO GROWTH AFTER 4 DAYS Med Orders - Current: Current Medications Acetaminophen (Tylenol) 650 mg RECTAL Q6H PRN PRN Reason: Pain/Fever/DRISCOLL Last Admin: 05/30/18 07:36 Dose: 650 mg Acetaminophen (Tylenol) 650 mg PO Q6H PRN PRN Reason: Pain/Fever/DRISCOLL Last Admin: 05/31/18 11:34 Dose: 650 mg Albuterol/Ipratropium (Duoneb 3.0-0.5 Mg/3 Ml) 3 ml NEB Q4H PRN PRN Reason: Shortness Of Breath/wheezing Chlordiazepoxide HCl (Librium) 75 mg PO TID [facility] Last Admin: 06/03/18 15:42 Dose: Not Given Clonidine HCl (Catapres) 0.1 mg PO Q4H PRN PRN Reason: Agitation Last Admin: 06/02/18 12:24 Dose: 0.1 mg Diazepam (Valium) 10 mg IV Q12H [facility] Last Admin: 06/03/18 14:48 Dose: 10 mg Famotidine (Pepcid) 20 mg PO BID [facility] Last Admin: 06/03/18 08:31 Dose: 20 mg Guaifenesin (Mucinex) 600 mg PO BID [facility] Last Admin: 06/03/18 08:32 Dose: 600 mg Haloperidol Lactate (Haldol) 4 mg IVPUSH Q8H [facility] Last Admin: 06/03/18 16:01 Dose: 4 mg Hydralazine HCl (Apresoline) 20 mg IVPUSH Q4H PRN PRN Reason: Hypertension Last Admin: 06/03/18 16:50 Dose: 20 mg Hydromorphone HCl (Dilaudid) 2 mg IVPUSH Q6H PRN PRN Reason: Pain (severe 7-10) Last Admin: 06/01/18 21:36 Dose: 2 mg Piperacillin Sod/Tazobactam (Sod 4.5 gm/ Sodium Chloride) 100 mls @ 25 mls/hr IV Q8H [facility] Last Admin: 06/03/18 15:00 Dose: 25 mls/hr Potassium Chloride/Dextrose/Sod Cl (D5 Ns With 20 Meq Kcl) 1,000 mls @ 75 mls/ hr IV ASDIRECTED [facility] Last Admin: 06/03/18 08:14 Dose: 75 mls/hr Lorazepam 40 mg/ Sodium (Chloride) 40 mls @ 5 mls/hr IV ASDIRECTED [facility] Last Infusion: 06/03/18 14:52 Dose: 5 mls/hr Lorazepam 80 mg/ Sodium (Chloride) 80 mls @ 15 mls/hr IV TITRATE [facility] Lorazepam (Ativan) 2 mg IVPUSH Q4H PRN PRN Reason: Seizures Lorazepam (Ativan) 0 mg IVPUSH Q4H PRN; Protocol PRN Reason: Anxiety Last Admin: 06/03/18 14:07 Dose: 2 mg Metoprolol Tartrate (Lopressor) 5 mg IVPUSH Q4H PRN PRN Reason: Tachycardia Last Admin: 05/30/18 08:07 Dose: 5 mg Miscellaneous Information (Remove Patch) 1 ea TRDERM DAILY PRN PRN Reason: NICOTINE DEPENDENCE Last Admin: 05/27/18 18:31 Dose: 1 ea Miscellaneous Information (Remove Patch) 1 ea TRDERM Q7D [facility] Miscellaneous Information (Remove Patch) 0 ea TRDERM ONETIME ONE Stop: 06/06/18 10:01 Nicotine (Habitrol) 21 mg TRDERM DAILY PRN PRN Reason: Nicotine Dependence Last Admin: 05/27/18 21:42 Dose: 21 mg Ondansetron HCl (Zofran) 4 mg IV Q6H PRN PRN Reason: Nausea/Vomiting Quetiapine Fumarate (Seroquel) 25 mg PO BID [facility] Last Admin: 06/03/18 08:32 Dose: 25 mg Thiamine HCl (Vitamin B-1) 100 mg PO DAILY [facility] Last Admin: 06/03/18 08:32 Dose: 100 mg Topiramate (Topamax) 25 mg PO BEDTIME [facility] Last Admin: 06/02/18 20:15 Dose: 25 mg Discontinued Medications Bumetanide (Bumex) 0.5 mg IVPUSH ONETIME ONE Stop: 05/31/18 08:16 Last Admin: 05/31/18 08:25 Dose: 0.5 mg Chlordiazepoxide HCl (Librium) 25 mg PO Q8H PRN PRN Reason: Withdrawal Symptoms Last Admin: 05/26/18 06:27 Dose: 25 mg Chlordiazepoxide HCl (Librium) 25 mg PO ONETIME ONE Stop: 05/25/18 22:01 Last Admin: 05/25/18 22:07 Dose: 25 mg Chlordiazepoxide HCl (Librium) 25 mg PO Q8H [facility] Last Admin: 05/28/18 05:02 Dose: 25 mg Chlordiazepoxide HCl (Librium) 25 mg PO Q8H PRN PRN Reason: Withdrawal Symptoms Chlordiazepoxide HCl (Librium) 25 mg PO Q6H PRN PRN Reason: Withdrawal Symptoms Last Admin: 05/28/18 14:59 Dose: 25 mg Chlordiazepoxide HCl (Librium) 50 mg PO Q6H PRN PRN Reason: Withdrawal Symptoms Last Admin: 05/29/18 08:26 Dose: 50 mg Chlordiazepoxide HCl (Librium) 25 mg PO TID [facility] Last Admin: 06/02/18 20:14 Dose: 25 mg Chlordiazepoxide HCl (Librium) 50 mg PO ONETIME ONE Stop: 06/02/18 20:47 Last Admin: 06/02/18 21:03 Dose: 50 mg Clonidine HCl (Catapres-Tts 3) 0.3 mg TRDERM Q7D [facility] Last Admin: 05/28/18 03:09 Dose: 0.3 mg Al Hydroxide/Mg Hydroxide 30 (ml/ Lidocaine HCl 15 ml) 0 ml PO ONETIME ONE Stop: 05/25/18 16:32 Last Admin: 05/25/18 16:46 Dose: 45 ml Diatrizoate Meglum/Diatrizoate Sod (Gastrografin 37%) 90 ml PO ONETIME ONE Stop: 05/25/18 18:05 Last Admin: 05/25/18 18:16 Dose: 90 ml Diazepam (Valium) 5 mg IV STAT ONE Stop: 06/01/18 16:35 Last Admin: 06/01/18 16:52 Dose: 5 mg Diphenhydramine HCl (Benadryl) 50 mg IVPUSH ONETIME ONE Stop: 05/25/18 21:44 Last Admin: 05/25/18 21:54 Dose: 50 mg Famotidine (Pepcid) 20 mg IVPUSH BID [facility] Last Admin: 06/01/18 09:38 Dose: 20 mg Folic Acid (Folic Acid) 1 mg PO DAILY [facility] Stop: 05/28/18 09:01 Last Admin: 05/28/18 08:00 Dose: 1 mg Haloperidol Lactate (Haldol) 2 mg IM Q4H PRN PRN Reason: Agitation Haloperidol Lactate (Haldol) 2 mg IM Q4H PRN PRN Reason: Withdrawal Symptoms Last Admin: 05/28/18 15:26 Dose: 2 mg Haloperidol Lactate (Haldol) 5 mg IM Q4H PRN PRN Reason: Withdrawal Symptoms Last Admin: 05/29/18 06:40 Dose: 5 mg Haloperidol Lactate (Haldol) 5 mg IM ONETIME ONE Stop: 05/29/18 09:26 Last Admin: 05/29/18 09:25 Dose: 5 mg Haloperidol Lactate (Haldol) 4 mg IVPUSH STAT STA Stop: 06/01/18 09:28 Last Admin: 06/01/18 09:37 Dose: 4 mg Haloperidol Lactate (Haldol) 4 mg IVPUSH STAT STA Stop: 06/01/18 12:51 Last Admin: 06/01/18 13:00 Dose: 4 mg Hydromorphone HCl (Dilaudid) 1 mg IVPUSH ONETIME [facility] Stop: 05/25/18 16:48 Last Admin: 05/25/18 17:01 Dose: 1 mg Hydromorphone HCl (Dilaudid) 0.5 mg IVPUSH ONETIME ONE Stop: 05/25/18 19:40 Last Admin: 05/25/18 20:12 Dose: Not Given Hydromorphone HCl (Dilaudid) 1 mg IVPUSH Q4H PRN PRN Reason: Pain (severe 7-10) Last Admin: 05/25/18 21:46 Dose: 1 mg Hydromorphone HCl (Dilaudid) 2 mg IVPUSH Q4H PRN PRN Reason: Pain (severe 7-10) Last Admin: 05/27/18 01:09 Dose: 2 mg Hydromorphone HCl (Dilaudid) 1 mg IVPUSH Q6H PRN PRN Reason: Pain (severe 7-10) Last Admin: 05/28/18 05:48 Dose: 1 mg Hydromorphone HCl (Dilaudid) 0.5 mg IVPUSH Q6H PRN PRN Reason: Pain (severe 7-10) Last Admin: 05/29/18 03:23 Dose: 0.5 mg Sodium Chloride (Normal Saline) 1,000 mls @ 999 mls/hr IV ASDIRECTED [facility] Last Admin: 05/25/18 17:03 Dose: 999 mls/hr Thiamine HCl 100 mg/ Sodium (Chloride) 51 mls @ 100 mls/hr IV ONETIME ONE Stop: 05/25/18 20:30 Last Admin: 05/25/18 20:58 Dose: 100 mls/hr Potassium Chloride/Dextrose/Sod Cl (D5 Ns With 20 Meq Kcl) 1,000 mls @ 175 mls/ hr IV ASDIRECTED [facility] Last Admin: 05/27/18 08:24 Dose: 175 mls/hr Potassium Chloride 10 meq/ (Premix) 100 mls @ 100 mls/hr IV Q1H [facility] Stop: 05/26/18 02:59 Last Admin: 05/26/18 03:11 Dose: 100 mls/hr Potassium Chloride/Dextrose/Sod Cl (D5 Ns With 20 Meq Kcl) 1,000 mls @ 100 mls/ hr IV ASDIRECTED [facility] Last Admin: 05/28/18 01:57 Dose: 100 mls/hr Magnesium Sulfate 4 gm/ Premix 100 mls @ 25 mls/hr IV Q4H [facility] Stop: 05/28/18 15:59 Last Admin: 05/28/18 11:41 Dose: 25 mls/hr Potassium Chloride/Sodium Chloride (Normal Saline With 20 Meq Kcl) 1,000 mls @ 125 mls/hr IV ASDIRECTED [facility] Last Admin: 05/30/18 07:04 Dose: 125 mls/hr Midazolam HCl 50 mg/ Sodium (Chloride) 50 mls @ 0.5 mls/hr IV TITRATE [facility]; Protocol Last Titration: 05/31/18 08:46 Dose: 0 mg/hr, 0 mls/hr Propofol (Diprivan 100 Ml) Confirm Administered Dose 100 mls @ as directed .ROUTE .STK-MED ONE Stop: 05/29/18 15:04 Last Admin: 05/29/18 16:22 Dose: Not Given Propofol (Diprivan 100 Ml) 100 mls @ 2.077 mls/hr IV TITRATE [facility]; Protocol Last Titration: 05/31/18 08:46 Dose: 0 mcg/kg/min, 0 mls/hr Piperacillin Sod/Tazobactam (Sod 4.5 gm/ Sodium Chloride) 100 mls @ 200 mls/hr IV ONETIME ONE Stop: 05/30/18 07:59 Last Admin: 05/30/18 07:32 Dose: 200 mls/hr Magnesium Sulfate 4 gm/ Premix 50 mls @ 12.5 mls/hr IV ONETIME ONE Stop: 05/30/18 13:14 Last Admin: 05/30/18 10:08 Dose: 12.5 mls/hr Magnesium Sulfate 2 gm/ Premix 50 mls @ 25 mls/hr IV ONETIME ONE Stop: 05/30/18 15:59 Last Admin: 05/30/18 14:12 Dose: 25 mls/hr Levofloxacin/Dextrose 750 mg/ (Premix) 150 mls @ 100 mls/hr IV Q24H [facility] Last Admin: 06/01/18 10:50 Dose: Not Given Magnesium Sulfate 4 gm/ Premix 50 mls @ 150 mls/hr IV ONETIME ONE Stop: 06/01/18 13:11 Last Admin: 06/01/18 13:53 Dose: 150 mls/hr Magnesium Sulfate 4 gm/ Premix 50 mls @ 12.5 mls/hr IV ONETIME ONE Stop: 06/02/18 16:59 Last Admin: 06/02/18 13:09 Dose: 12.5 mls/hr Ibuprofen (Motrin) 600 mg PO Q6H PRN PRN Reason: Pain (moderate 4-6) Iopamidol (Isovue-370 (76%)) 100 ml IV ONETIME ONE Stop: 05/25/18 18:06 Last Admin: 05/25/18 18:18 Dose: 100 ml Ketamine HCl (Ketalar) 50 mg IV ONETIME ONE Stop: 05/29/18 15:24 Last Admin: 05/29/18 15:23 Dose: 50 mg Lorazepam (Ativan) 0 mg IV Q6H PRN; Protocol PRN Reason: Withdrawal Symptoms Last Admin: 05/27/18 23:16 Dose: 1 mg Lorazepam (Ativan) 1 - 3 mg IV ASDIRECTED PRN; Protocol PRN Reason: Withdrawal Symptoms Last Admin: 05/29/18 09:46 Dose: 3 mg Lorazepam (Ativan) Confirm Administered Dose 2 mg .ROUTE .STK-MED ONE Stop: 05/28/18 00:40 Last Admin: 05/28/18 00:57 Dose: Not Given Lorazepam (Ativan) 2 mg IVPUSH ONETIME ONE Stop: 05/28/18 00:41 Last Admin: 05/28/18 00:40 Dose: 2 mg Lorazepam (Ativan) 6 mg IVPUSH STAT STA Stop: 06/01/18 12:51 Last Admin: 06/01/18 13:01 Dose: 6 mg Magnesium Sulfate (Pharmacy To Dose - Magnesium Replacement) 0 dose .XX ASDIRECTED PRN PRN Reason: RX TO WATCH MAG Midazolam HCl (Versed 1 Mg/Ml) Confirm Administered Dose 2 mg .ROUTE .STK-MED ONE Stop: 05/29/18 09:28 Last Admin: 05/29/18 09:30 Dose: 2 mg Midazolam HCl (Versed 5 Mg/Ml) Confirm Administered Dose 25 mg .ROUTE .STK-MED ONE Stop: 05/30/18 19:24 Last Admin: 05/30/18 19:30 Dose: Not Given Miscellaneous Information (Remove Patch) 1 ea TRDERM ONETIME ONE Stop: 05/28/18 20:01 Last Admin: 05/28/18 20:35 Dose: 1 ea Miscellaneous Information (Remove Patch) 1 ea TRDERM ONETIME ONE Stop: 05/28/18 22:01 Last Admin: 05/28/18 21:33 Dose: 1 ea Modafinil (Provigil) 200 mg PO NOW STA Stop: 05/31/18 08:25 Last Admin: 05/31/18 08:39 Dose: 200 mg Multivitamins (Thera) 1 each PO DAILY [facility] Stop: 05/29/18 09:01 Last Admin: 05/29/18 08:26 Dose: 1 each Ondansetron HCl (Zofran Odt) 4 mg PO ONETIME ONE Stop: 05/25/18 16:34 Last Admin: 05/25/18 17:01 Dose: Not Given Ondansetron HCl (Zofran) 4 mg IVPUSH ONETIME ONE Stop: 05/25/18 16:48 Last Admin: 05/25/18 16:59 Dose: 4 mg Oxycodone HCl (Oxycodone) 5 mg PO Q4H PRN PRN Reason: Pain (moderate 4-6) Last Admin: 05/25/18 20:51 Dose: 5 mg Oxycodone HCl (Oxycontin) 20 mg PO Q12HR [facility] Last Admin: 05/28/18 08:01 Dose: Not Given Pantoprazole Sodium (Protonix) 40 mg PO ONETIME ONE Stop: 05/25/18 16:33 Last Admin: 05/25/18 17:05 Dose: Not Given Pantoprazole Sodium (Protonix Iv) 40 mg IVPUSH ONETIME ONE Stop: 05/25/18 16:48 Last Admin: 05/25/18 17:03 Dose: 40 mg Pantoprazole Sodium (Protonix Iv) 40 mg IV Q12HR ABRT Pantoprazole Sodium (Protonix Iv) 40 mg IV Q12HR [facility] Stop: 05/27/18 21:01 Last Admin: 05/27/18 21:40 Dose: 40 mg Pantoprazole Sodium (Protonix) 40 mg PO BID [facility] Last Admin: 05/29/18 08:27 Dose: 40 mg Potassium Chloride (Pharmacy To Dose - Potassium Replacement) 0 dose .XX ASDIRECTED PRN PRN Reason: RX TO WATCH K Quetiapine Fumarate (Seroquel) 50 mg PO BEDTIME [facility] Last Admin: 05/28/18 20:33 Dose: 50 mg Quetiapine Fumarate (Seroquel) 50 mg PO BEDTIME [facility] Rocuronium [place] (Zemuron) 60 mg IVPUSH ONETIME ONE Stop: 05/29/18 15:26 Last Admin: 05/29/18 15:25 Dose: 60 mg Scopolamine (Transderm-Scop) 1.5 mg TRDERM Q72H ONE Stop: 05/25/18 20:01 Last Admin: 05/25/18 20:49 Dose: 1.5 mg Scopolamine (Transderm-Scop) 1.5 mg TOP ONETIME ONE Stop: 06/03/18 09:57 Last Admin: 06/03/18 10:17 Dose: 1.5 mg Topiramate (Topamax) 25 mg PO BID [facility] Last Admin: 05/29/18 08:25 Dose: 25 mg Topiramate (Topamax) 25 mg PO BID [facility] - Exam Quality Assessment: Supplemental Oxygen, DVT Prophylaxis General: Alert, Oriented, Cooperative, No Acute Distress HEENT: Pupils Equal, Pupils Reactive, EOMI Neck: Trachea Midline, No JVD Lungs: Normal Respiratory Effort Cardiovascular: Regular Rate GI/Abdominal Exam: Normal Bowel Sounds, Soft, Non-Tender, No Distention (Male) Exam: Deferred Back Exam: Normal Inspection Extremities: Normal Inspection, Non-Tender, Normal Capillary Refill Skin: Warm Neurological: No New Focal Deficit Psy/Mental Status: Alert - Problem List Review Problem List Initiated/Reviewed/Updated: Yes - My Orders Last 24 Hours: My Active Orders 06/03/18 00:00 Haloperidol Lactate [Haldol] 4 mg IVPUSH Q8H 06/03/18 09:00 chlordiazePOXIDE [Librium] 75 mg PO TID 06/03/18 10:22 Modified Wheat Swallow Screen [Nursing Bedside Swallow Screen] [RC] ASDIRECTED 06/03/18 14:30 diazePAM [Valium] 10 mg IV Q12H 06/03/18 16:00 LORazepam 80 mg Sodium Chloride 0.9% [Normal Saline] 40 ml IV TITRATE 06/04/18 05:00 BMP [BASIC METABOLIC PANEL,BMP] [CHEM] DAILY CBC WITH AUTO DIFF [HEME] DAILY MAGNESIUM [CHEM] DAILY 06/05/18 05:00 BMP [BASIC METABOLIC PANEL,BMP] [CHEM] DAILY CBC WITH AUTO DIFF [HEME] DAILY MAGNESIUM [CHEM] DAILY 06/06/18 05:00 BMP [BASIC METABOLIC PANEL,BMP] [CHEM] DAILY CBC WITH AUTO DIFF [HEME] DAILY MAGNESIUM [CHEM] DAILY 06/06/18 10:00 Remove Patch 0 ea TRDERM ONETIME ONE 06/07/18 05:00 BMP [BASIC METABOLIC PANEL,BMP] [CHEM] DAILY CBC WITH AUTO DIFF [HEME] DAILY MAGNESIUM [CHEM] DAILY - Plan Plan:: Assessment/Plan: Acute: POST EXTUBATION DAY 3 HALDOL/ATIVAN USE FOR ACUTE ETOH WITHDRAWAL/CHRONIC DEPENDENCE WITH SEVERE AGITATION, UNABLE TO REDIRECT. Original Note: Delirium Tremens on Mechanical Ventilator - Severe ETOH Withdrawal - RASS -4; advance to -5 - Plan to hopefully extubate after 48hrs - Continue IV Zosyn and will add Levaquin for aspiration coverage (had a lot for oral secretion during intubation) - Continue IV Propofol and Midazolam drip per paper CIWAA Protocol; if we run out of versed will augment with Ativan drip - CXR shows stable placement of NGT and Tip of ETT; previously had increased density within the left lung base; repeat CXR. ETOH Withdrawal Symptoms w/ Aggression and Combativeness - Carries a hx/o Chronic ETOH Use - Alcoholism is now causing serious health issues - VISHNU is 0.38 - CIWA score 13->20 - Thiamine, Folic Acid, and MVI - Midazolam drip per Protocol (see Manual Provided) - SAC; refused services; we will try again once alert and awake - Hold Tele-psych consult; he is not appropriate at this time - Advised to quit drinking - Discussed option for possible intubation if his aggression/combativeness persists; mom consented Hyponatremia, Continues to Improve - NA 127-->132-->134 2/2 D5W infusion - No episode of seizures observed - Restart D5WNS 0.9% with 20mEq of IVF at 50 cc/hr for glucose maintenance Nicotine Dependence - Smokes Cigarettes: 2ppd - Nicotine patch daily Hypomagnesemia - Mg 1.6-->1.6--> 1.2 - 2/2 NPO status - Replete and monitor Resolved: S/p Hypokalemia - K 3.1-->4.3 - 2/2 GI Loss - Replete and monitor S/p Severe Pancreatitis - Carries a hx/o Chronic ETOH Use/Dependence - 2/2 ETOH Pancreatitis; drinks heavily - VISHNU level is 0.38 - Lipase is 5831-->3801-->1115-->548-->407 - CT scan report reads fairly severe pancreatitis with diffuse surrounding inflammatory change, mild pancreatic edema as well as fluid around the pancreas extending into the paracolic gutter and into the dependent portion of the pelvis. - MIKEY' Criteria: 1 = LHD level of 512-1% predicted Mortality; BISAP score is 0 (Patients with a BISAP Score of 0 had <1% risk of mortality) - Continue IV fluids, pain control, anti-emesis and electrolytes supplement - May start clear liquid diet and advance to soft and regular (nonfatty/ nongreasy meal) as tolerated - Excellent urine output S/p Transaminitis - AST/ALT= 2:1; 138:66-->91:48-->65:37 - 2/2 ETOH Abuse - IV fluids and will avoid acetaminophen Chronic: HTN ETOH Pancreatitis Alcoholism Depression Fatty Liver - 2/2 Chronic ETOH Use - CT Scan report reads prominent fatty infiltration within the liver; seen on CT scan 10/29/2016 as well - NPO for now except ice chips, sips fo water and oral meds - Advised to quit drinking Substance Abuse: Oxycodone, Marijuana, Amphetamine and Meth Plan: He looks comfortable this morning Routine AM Labs Continue CIWA Protocol GI/DVT PPx: PPI/SCDs SW/CM for d/c planning Additional orders as above Code status:1 LOS anticipate > 96hrs due patient is on mechanical ventilator; tolerating extubation. Advance diet as tolerated. Psych/SA consults, TBD. LOS>96 hours with sever ETOH withdrawal
[2018-06-03] MEDS: LORazepam 80 MG in Sodium Chloride 0.9% 40 ML IV SCH (18:52)
[2018-06-03] MEDS: cloNIDine 0.1 MG Tab PO PRN (20:01)
[2018-06-03] MEDS: Topiramate 25 MG Tab PO SCH (21:06)
[2018-06-04] MEDS: LORazepam 2 MG/ML SDV IVPUSH PRN ×2 (00:12→18:30)
[2018-06-04] MEDS: diazePAM 5 MG/ML-2ml Syringe IV SCH ×2 (02:20→14:07)
[2018-06-04] MEDS: LORazepam 80 MG in Sodium Chloride 0.9% 40 ML IV SCH ×3 (02:58→18:37)
[2018-06-04] MEDS ORDERED: Magnesium Sulfate/Water 4 GM in Premix Bag 1 BAG IV ONE ×2 (07:30→18:27)
[2018-06-04] MEDS: Piperacillin/Tazobactam 4.5 GM in Sodium Chloride 0.9% 100 ML IV SCH ×3 (07:50→23:39)
[2018-06-04] MEDS: Haloperidol Lactate 5 MG/ML SDV IVPUSH SCH ×2 (07:58→15:44)
[2018-06-04] MEDS: chlordiazePOXIDE 25 MG Cap PO SCH ×3 (08:03→20:02)
[2018-06-04] MEDS: QUEtiapine 25 MG Tab PO SCH ×2 (08:03→20:03)
[2018-06-04] MEDS: guaiFENesin 600 MG Tab.ER PO SCH ×2 (09:46→20:18)
[2018-06-04] MEDS: Famotidine 20 MG Tab PO SCH ×2 (09:46→20:18)
[2018-06-04] MEDS: Thiamine 100 MG Tab PO SCH (09:47)
[2018-06-04] MEDS: Dextrose 5%-0.9% NaCl with KCl 1,000 ML IV SCH ×2 (10:05→23:37)
--- NOTE | 2018-06-04 11:48 | CT ---
Head CT Technique: Multiple axial sections through the brain were obtained. Intravenous contrast was not utilized. Comparison: Previous noncontrast head CT study of 11/21/14. Findings: Ventricles along with basal cisterns and sulci over the convexities are mildly prominent. No abnormal parenchymal densities are seen. No evidence of intracranial hemorrhage. No midline shift or mass effect is seen. Bone window settings were reviewed which show slight fluid and mucosal thickening within the right mastoid sinus. Minimal mucosal thickening is seen within the right frontal sinus. No acute calvarial abnormality is appreciated. Impression: 1. Generalized atrophy is seen. These findings are stable from prior MRI. 2. Sinus findings which are likely incidental if patient has no symptoms of mastoiditis or sinusitis. 3. No acute intracranial abnormality is appreciated. Diagnostic code #3
--- NOTE | 2018-06-04 18:26 | PCM.PN ---
- General Info Date of Service: 06/04/18 Subjective Update: Discussed with team, need for calories, will attempt clear liquids; if unable to tolerate, will pursue tube feeds. Also will likely contact [place] to transfer patient if minor to no improvement in mentation. Have been unable to sustain a lower Ativan drip dose. Labile behavior, will at times spit pills out at nursing staff after pocketing the meds in his mouth. Combative, belligerent behavior and has been verbally abusive to the nursing staff. Dysphagia, NOS; mechanical post extubation cf pharmaceutical needs during withdrawal from ETOH/meth. Repeat swallow eval prior to clear liquids. Functional Status: Reports: Urinating - Review of Systems General: Reports: Weakness HEENT: Reports: No Symptoms Pulmonary: Reports: No Symptoms Cardiovascular: Reports: No Symptoms Gastrointestinal: Reports: No Symptoms Genitourinary: Reports: No Symptoms Musculoskeletal: Reports: No Symptoms Skin: Reports: No Symptoms Neurological: Reports: Confusion Psychiatric: Reports: Confusion, Mood Lability, Agitation, Other (belligerent, combative restless) - Patient Data Vitals - Most Recent: Last Vital Signs Temp 36.6 C 06/04/18 16:00 Pulse 53 L 06/04/18 12:00 Resp 16 06/04/18 16:00 BP 147/98 H 06/04/18 16:00 Pulse Ox 99 06/04/18 16:00 Weight - Most Recent: 67.993 kg I&O - Last 24 Hours: Intake & Output 06/04/18 06/04/18 06/04/18 06:59 14:59 22:59 Intake Total 662 1303 Output Total 410 725 310 Balance 252 -725 993 Lab Results Last 24 Hours: Laboratory Results - last 24 hr 06/04/18 06/04/18 06/04/18 Range/Units 01:02 05:00 05:00 WBC 8.82 (4.23-9.07) K/mm3 RBC 4.01 L (4.63-6.08) M/mm3 Hgb 11.7 L (13.7-17.5) gm/L Hct 35.4 L (40.1-51.0) % MCV 88.3 (79.0-92.2) fl MCH 29.2 (25.7-32.2) pg MCHC 33.1 (32.2-35.5) g/dl RDW Std Deviation 43.2 (35.1-43.9) fL Plt Count 461 H (163-337) K/mm3 MPV 10.8 (9.4-12.3) fl Neut % (Auto) 59.5 (34.0-67.9) % Lymph % (Auto) 16.2 L (21.8-53.1) % [place] % (Auto) 20.2 H (5.3-12.2) % Eos % (Auto) 1.1 (0.8-7.0) Baso % (Auto) 0.6 (0.1-1.2) % Neut # (Auto) 5.25 (1.78-5.38) K/mm3 Lymph # (Auto) 1.43 (1.32-3.57) K/mm3 [place] # (Auto) 1.78 H (0.30-0.82) K/mm3 Eos # (Auto) 0.10 (0.04-0.54) K/mm3 Baso # (Auto) 0.05 (0.01-0.08) K/mm3 Manual Slide Review Abnormal smear Sodium 137 (136-145) mEq/L Potassium 3.5 (3.5-5.1) mEq/L Chloride 104 (98-107) mEq/L Carbon Dioxide 21 (21-32) mEq/L Anion Gap 15.5 H (5-15) BUN 5 L (7-18) mg/dL Creatinine 0.8 (0.7-1.3) mg/dL Est Cr Clr Drug Dosing 123.95 mL/min Estimated GFR (MDRD) > 60 (>60) mL/min BUN/Creatinine Ratio 6.3 L (14-18) Glucose 117 H (74-106) mg/dL POC Glucose 96 (70-105) mg/dL Calcium 9.0 (8.5-10.1) mg/dL Magnesium 1.4 L (1.8-2.4) mg/dl 06/04/18 Range/Units 12:09 WBC (4.23-9.07) K/mm3 RBC (4.63-6.08) M/mm3 Hgb (13.7-17.5) gm/L Hct (40.1-51.0) % MCV (79.0-92.2) fl MCH (25.7-32.2) pg MCHC (32.2-35.5) g/dl RDW Std Deviation (35.1-43.9) fL Plt Count (163-337) K/mm3 MPV (9.4-12.3) fl Neut % (Auto) (34.0-67.9) % Lymph % (Auto) (21.8-53.1) % [place] % (Auto) (5.3-12.2) % Eos % (Auto) (0.8-7.0) Baso % (Auto) (0.1-1.2) % Neut # (Auto) (1.78-5.38) K/mm3 Lymph # (Auto) (1.32-3.57) K/mm3 [place] # (Auto) (0.30-0.82) K/mm3 Eos # (Auto) (0.04-0.54) K/mm3 Baso # (Auto) (0.01-0.08) K/mm3 Manual Slide Review Sodium (136-145) mEq/L Potassium (3.5-5.1) mEq/L Chloride (98-107) mEq/L Carbon Dioxide (21-32) mEq/L Anion Gap (5-15) BUN (7-18) mg/dL Creatinine (0.7-1.3) mg/dL Est Cr Clr Drug Dosing mL/min Estimated GFR (MDRD) (>60) mL/min BUN/Creatinine Ratio (14-18) Glucose (74-106) mg/dL POC Glucose 124 H (70-105) mg/dL Calcium (8.5-10.1) mg/dL Magnesium (1.8-2.4) mg/dl [facility] Results Last 24 Hours: Microbiology 05/30/18 06:55 Aerobic Blood Culture - Preliminary Blood - Venous NO GROWTH AFTER 5 DAYS Anaerobic Blood Culture - Preliminary NO GROWTH AFTER 5 DAYS 05/30/18 07:05 Aerobic Blood Culture - Preliminary Blood - Venous - Lab Draw NO GROWTH AFTER 5 DAYS Anaerobic Blood Culture - Preliminary NO GROWTH AFTER 5 DAYS Med Orders - Current: Current Medications Acetaminophen (Tylenol) 650 mg RECTAL Q6H PRN PRN Reason: Pain/Fever/DRISCOLL Last Admin: 05/30/18 07:36 Dose: 650 mg Acetaminophen (Tylenol) 650 mg PO Q6H PRN PRN Reason: Pain/Fever/DRISCOLL Last Admin: 05/31/18 11:34 Dose: 650 mg Albuterol/Ipratropium (Duoneb 3.0-0.5 Mg/3 Ml) 3 ml NEB Q4H PRN PRN Reason: Shortness Of Breath/wheezing Chlordiazepoxide HCl (Librium) 75 mg PO TID [facility] Last Admin: 06/04/18 14:08 Dose: 25 mg Clonidine HCl (Catapres) 0.1 mg PO Q4H PRN PRN Reason: Agitation Last Admin: 06/03/18 20:01 Dose: 0.1 mg Diazepam (Valium) 10 mg IV Q12H [facility] Last Admin: 06/04/18 14:07 Dose: 10 mg Famotidine (Pepcid) 20 mg PO BID [facility] Last Admin: 06/04/18 09:46 Dose: Not Given Folic Acid (Folic Acid) 1 mg PO BEDTIME [facility] Guaifenesin (Mucinex) 600 mg PO BID [facility] Last Admin: 06/04/18 09:46 Dose: Not Given Haloperidol Lactate (Haldol) 4 mg IVPUSH Q8H [facility] Last Admin: 06/04/18 15:44 Dose: 4 mg Hydralazine HCl (Apresoline) 20 mg IVPUSH Q4H PRN PRN Reason: Hypertension Last Admin: 06/03/18 16:50 Dose: 20 mg Hydromorphone HCl (Dilaudid) 2 mg IVPUSH Q6H PRN PRN Reason: Pain (severe 7-10) Last Admin: 06/01/18 21:36 Dose: 2 mg Piperacillin Sod/Tazobactam (Sod 4.5 gm/ Sodium Chloride) 100 mls @ 25 mls/hr IV Q8H [facility] Stop: 06/05/18 15:31 Last Admin: 06/04/18 15:46 Dose: 25 mls/hr Potassium Chloride/Dextrose/Sod Cl (D5 Ns With 20 Meq Kcl) 1,000 mls @ 75 mls/ hr IV ASDIRECTED [facility] Last Admin: 06/04/18 10:05 Dose: 75 mls/hr Lorazepam 80 mg/ Sodium (Chloride) 80 mls @ 15 mls/hr IV TITRATE [facility] Last Infusion: 06/04/18 13:43 Dose: 8 mls/hr Lorazepam (Ativan) 2 mg IVPUSH Q4H PRN PRN Reason: Seizures Lorazepam (Ativan) 0 mg IVPUSH Q4H PRN; Protocol PRN Reason: Anxiety Last Admin: 06/04/18 00:12 Dose: 2 mg Metoprolol Tartrate (Lopressor) 5 mg IVPUSH Q4H PRN PRN Reason: Tachycardia Last Admin: 05/30/18 08:07 Dose: 5 mg Miscellaneous Information (Remove Patch) 1 ea TRDERM DAILY PRN PRN Reason: NICOTINE DEPENDENCE Last Admin: 05/27/18 18:31 Dose: 1 ea Miscellaneous Information (Remove Patch) 1 ea TRDERM Q7D [facility] Last Admin: 06/04/18 05:15 Dose: Not Given Miscellaneous Information (Remove Patch) 0 ea TRDERM ONETIME ONE Stop: 06/06/18 10:01 Nicotine (Habitrol) 21 mg TRDERM DAILY PRN PRN Reason: Nicotine Dependence Last Admin: 05/27/18 21:42 Dose: 21 mg Ondansetron HCl (Zofran) 4 mg IV Q6H PRN PRN Reason: Nausea/Vomiting Quetiapine Fumarate (Seroquel) 25 mg PO BID [facility] Last Admin: 06/04/18 08:03 Dose: 25 mg Thiamine HCl (Vitamin B-1) 100 mg PO DAILY [facility] Last Admin: 06/04/18 09:47 Dose: Not Given Topiramate (Topamax) 25 mg PO BEDTIME [facility] Last Admin: 06/03/18 21:06 Dose: 25 mg Discontinued Medications Bumetanide (Bumex) 0.5 mg IVPUSH ONETIME ONE Stop: 05/31/18 08:16 Last Admin: 05/31/18 08:25 Dose: 0.5 mg Chlordiazepoxide HCl (Librium) 25 mg PO Q8H PRN PRN Reason: Withdrawal Symptoms Last Admin: 05/26/18 06:27 Dose: 25 mg Chlordiazepoxide HCl (Librium) 25 mg PO ONETIME ONE Stop: 05/25/18 22:01 Last Admin: 05/25/18 22:07 Dose: 25 mg Chlordiazepoxide HCl (Librium) 25 mg PO Q8H [facility] Last Admin: 05/28/18 05:02 Dose: 25 mg Chlordiazepoxide HCl (Librium) 25 mg PO Q8H PRN PRN Reason: Withdrawal Symptoms Chlordiazepoxide HCl (Librium) 25 mg PO Q6H PRN PRN Reason: Withdrawal Symptoms Last Admin: 05/28/18 14:59 Dose: 25 mg Chlordiazepoxide HCl (Librium) 50 mg PO Q6H PRN PRN Reason: Withdrawal Symptoms Last Admin: 05/29/18 08:26 Dose: 50 mg Chlordiazepoxide HCl (Librium) 25 mg PO TID [facility] Last Admin: 06/02/18 20:14 Dose: 25 mg Chlordiazepoxide HCl (Librium) 50 mg PO ONETIME ONE Stop: 06/02/18 20:47 Last Admin: 06/02/18 21:03 Dose: 50 mg Clonidine HCl (Catapres-Tts 3) 0.3 mg TRDERM Q7D [facility] Last Admin: 05/28/18 03:09 Dose: 0.3 mg Al Hydroxide/Mg Hydroxide 30 (ml/ Lidocaine HCl 15 ml) 0 ml PO ONETIME ONE Stop: 05/25/18 16:32 Last Admin: 05/25/18 16:46 Dose: 45 ml Diatrizoate Meglum/Diatrizoate Sod (Gastrografin 37%) 90 ml PO ONETIME ONE Stop: 05/25/18 18:05 Last Admin: 05/25/18 18:16 Dose: 90 ml Diazepam (Valium) 5 mg IV STAT ONE Stop: 06/01/18 16:35 Last Admin: 06/01/18 16:52 Dose: 5 mg Diphenhydramine HCl (Benadryl) 50 mg IVPUSH ONETIME ONE Stop: 05/25/18 21:44 Last Admin: 05/25/18 21:54 Dose: 50 mg Famotidine (Pepcid) 20 mg IVPUSH BID [facility] Last Admin: 06/01/18 09:38 Dose: 20 mg Folic Acid (Folic Acid) 1 mg PO DAILY [facility] Stop: 05/28/18 09:01 Last Admin: 05/28/18 08:00 Dose: 1 mg Haloperidol Lactate (Haldol) 2 mg IM Q4H PRN PRN Reason: Agitation Haloperidol Lactate (Haldol) 2 mg IM Q4H PRN PRN Reason: Withdrawal Symptoms Last Admin: 05/28/18 15:26 Dose: 2 mg Haloperidol Lactate (Haldol) 5 mg IM Q4H PRN PRN Reason: Withdrawal Symptoms Last Admin: 05/29/18 06:40 Dose: 5 mg Haloperidol Lactate (Haldol) 5 mg IM ONETIME ONE Stop: 05/29/18 09:26 Last Admin: 05/29/18 09:25 Dose: 5 mg Haloperidol Lactate (Haldol) 4 mg IVPUSH STAT STA Stop: 06/01/18 09:28 Last Admin: 06/01/18 09:37 Dose: 4 mg Haloperidol Lactate (Haldol) 4 mg IVPUSH STAT STA Stop: 06/01/18 12:51 Last Admin: 06/01/18 13:00 Dose: 4 mg Hydromorphone HCl (Dilaudid) 1 mg IVPUSH ONETIME [facility] Stop: 05/25/18 16:48 Last Admin: 05/25/18 17:01 Dose: 1 mg Hydromorphone HCl (Dilaudid) 0.5 mg IVPUSH ONETIME ONE Stop: 05/25/18 19:40 Last Admin: 05/25/18 20:12 Dose: Not Given Hydromorphone HCl (Dilaudid) 1 mg IVPUSH Q4H PRN PRN Reason: Pain (severe 7-10) Last Admin: 05/25/18 21:46 Dose: 1 mg Hydromorphone HCl (Dilaudid) 2 mg IVPUSH Q4H PRN PRN Reason: Pain (severe 7-10) Last Admin: 05/27/18 01:09 Dose: 2 mg Hydromorphone HCl (Dilaudid) 1 mg IVPUSH Q6H PRN PRN Reason: Pain (severe 7-10) Last Admin: 05/28/18 05:48 Dose: 1 mg Hydromorphone HCl (Dilaudid) 0.5 mg IVPUSH Q6H PRN PRN Reason: Pain (severe 7-10) Last Admin: 05/29/18 03:23 Dose: 0.5 mg Sodium Chloride (Normal Saline) 1,000 mls @ 999 mls/hr IV ASDIRECTED [facility] Last Admin: 05/25/18 17:03 Dose: 999 mls/hr Thiamine HCl 100 mg/ Sodium (Chloride) 51 mls @ 100 mls/hr IV ONETIME ONE Stop: 05/25/18 20:30 Last Admin: 05/25/18 20:58 Dose: 100 mls/hr Potassium Chloride/Dextrose/Sod Cl (D5 Ns With 20 Meq Kcl) 1,000 mls @ 175 mls/ hr IV ASDIRECTED [facility] Last Admin: 05/27/18 08:24 Dose: 175 mls/hr Potassium Chloride 10 meq/ (Premix) 100 mls @ 100 mls/hr IV Q1H [facility] Stop: 05/26/18 02:59 Last Admin: 05/26/18 03:11 Dose: 100 mls/hr Potassium Chloride/Dextrose/Sod Cl (D5 Ns With 20 Meq Kcl) 1,000 mls @ 100 mls/ hr IV ASDIRECTED [facility] Last Admin: 05/28/18 01:57 Dose: 100 mls/hr Magnesium Sulfate 4 gm/ Premix 100 mls @ 25 mls/hr IV Q4H [facility] Stop: 05/28/18 15:59 Last Admin: 05/28/18 11:41 Dose: 25 mls/hr Potassium Chloride/Sodium Chloride (Normal Saline With 20 Meq Kcl) 1,000 mls @ 125 mls/hr IV ASDIRECTED [facility] Last Admin: 05/30/18 07:04 Dose: 125 mls/hr Midazolam HCl 50 mg/ Sodium (Chloride) 50 mls @ 0.5 mls/hr IV TITRATE [facility]; Protocol Last Titration: 05/31/18 08:46 Dose: 0 mg/hr, 0 mls/hr Propofol (Diprivan 100 Ml) Confirm Administered Dose 100 mls @ as directed .ROUTE .STK-MED ONE Stop: 05/29/18 15:04 Last Admin: 05/29/18 16:22 Dose: Not Given Propofol (Diprivan 100 Ml) 100 mls @ 2.077 mls/hr IV TITRATE [facility]; Protocol Last Titration: 05/31/18 08:46 Dose: 0 mcg/kg/min, 0 mls/hr Piperacillin Sod/Tazobactam (Sod 4.5 gm/ Sodium Chloride) 100 mls @ 200 mls/hr IV ONETIME ONE Stop: 05/30/18 07:59 Last Admin: 05/30/18 07:32 Dose: 200 mls/hr Magnesium Sulfate 4 gm/ Premix 50 mls @ 12.5 mls/hr IV ONETIME ONE Stop: 05/30/18 13:14 Last Admin: 05/30/18 10:08 Dose: 12.5 mls/hr Magnesium Sulfate 2 gm/ Premix 50 mls @ 25 mls/hr IV ONETIME ONE Stop: 05/30/18 15:59 Last Admin: 05/30/18 14:12 Dose: 25 mls/hr Levofloxacin/Dextrose 750 mg/ (Premix) 150 mls @ 100 mls/hr IV Q24H [facility] Last Admin: 06/01/18 10:50 Dose: Not Given Lorazepam 40 mg/ Sodium (Chloride) 40 mls @ 5 mls/hr IV ASDIRECTED [facility] Last Infusion: 06/03/18 17:17 Dose: 10 mls/hr Magnesium Sulfate 4 gm/ Premix 50 mls @ 150 mls/hr IV ONETIME ONE Stop: 06/01/18 13:11 Last Admin: 06/01/18 13:53 Dose: 150 mls/hr Magnesium Sulfate 4 gm/ Premix 50 mls @ 12.5 mls/hr IV ONETIME ONE Stop: 06/02/18 16:59 Last Admin: 06/02/18 13:09 Dose: 12.5 mls/hr Magnesium Sulfate 4 gm/ Premix 50 mls @ 12.5 mls/hr IV ONETIME ONE Stop: 06/04/18 11:29 Last Admin: 06/04/18 08:01 Dose: 12.5 mls/hr Ibuprofen (Motrin) 600 mg PO Q6H PRN PRN Reason: Pain (moderate 4-6) Iopamidol (Isovue-370 (76%)) 100 ml IV ONETIME ONE Stop: 05/25/18 18:06 Last Admin: 05/25/18 18:18 Dose: 100 ml Ketamine HCl (Ketalar) 50 mg IV ONETIME ONE Stop: 05/29/18 15:24 Last Admin: 05/29/18 15:23 Dose: 50 mg Lorazepam (Ativan) 0 mg IV Q6H PRN; Protocol PRN Reason: Withdrawal Symptoms Last Admin: 05/27/18 23:16 Dose: 1 mg Lorazepam (Ativan) 1 - 3 mg IV ASDIRECTED PRN; Protocol PRN Reason: Withdrawal Symptoms Last Admin: 05/29/18 09:46 Dose: 3 mg Lorazepam (Ativan) Confirm Administered Dose 2 mg .ROUTE .STK-MED ONE Stop: 05/28/18 00:40 Last Admin: 05/28/18 00:57 Dose: Not Given Lorazepam (Ativan) 2 mg IVPUSH ONETIME ONE Stop: 05/28/18 00:41 Last Admin: 05/28/18 00:40 Dose: 2 mg Lorazepam (Ativan) 6 mg IVPUSH STAT STA Stop: 06/01/18 12:51 Last Admin: 06/01/18 13:01 Dose: 6 mg Magnesium Sulfate (Pharmacy To Dose - Magnesium Replacement) 0 dose .XX ASDIRECTED PRN PRN Reason: RX TO WATCH MAG Midazolam HCl (Versed 1 Mg/Ml) Confirm Administered Dose 2 mg .ROUTE .STK-MED ONE Stop: 05/29/18 09:28 Last Admin: 05/29/18 09:30 Dose: 2 mg Midazolam HCl (Versed 5 Mg/Ml) Confirm Administered Dose 25 mg .ROUTE .STK-MED ONE Stop: 05/30/18 19:24 Last Admin: 05/30/18 19:30 Dose: Not Given Miscellaneous Information (Remove Patch) 1 ea TRDERM ONETIME ONE Stop: 05/28/18 20:01 Last Admin: 05/28/18 20:35 Dose: 1 ea Miscellaneous Information (Remove Patch) 1 ea TRDERM ONETIME ONE Stop: 05/28/18 22:01 Last Admin: 05/28/18 21:33 Dose: 1 ea Modafinil (Provigil) 200 mg PO NOW STA Stop: 05/31/18 08:25 Last Admin: 05/31/18 08:39 Dose: 200 mg Multivitamins (Thera) 1 each PO DAILY [facility] Stop: 05/29/18 09:01 Last Admin: 05/29/18 08:26 Dose: 1 each Ondansetron HCl (Zofran Odt) 4 mg PO ONETIME ONE Stop: 05/25/18 16:34 Last Admin: 05/25/18 17:01 Dose: Not Given Ondansetron HCl (Zofran) 4 mg IVPUSH ONETIME ONE Stop: 05/25/18 16:48 Last Admin: 05/25/18 16:59 Dose: 4 mg Oxycodone HCl (Oxycodone) 5 mg PO Q4H PRN PRN Reason: Pain (moderate 4-6) Last Admin: 05/25/18 20:51 Dose: 5 mg Oxycodone HCl (Oxycontin) 20 mg PO Q12HR [facility] Last Admin: 05/28/18 08:01 Dose: Not Given Pantoprazole Sodium (Protonix) 40 mg PO ONETIME ONE Stop: 05/25/18 16:33 Last Admin: 05/25/18 17:05 Dose: Not Given Pantoprazole Sodium (Protonix Iv) 40 mg IVPUSH ONETIME ONE Stop: 05/25/18 16:48 Last Admin: 05/25/18 17:03 Dose: 40 mg Pantoprazole Sodium (Protonix Iv) 40 mg IV Q12HR [facility] Pantoprazole Sodium (Protonix Iv) 40 mg IV Q12HR [facility] Stop: 05/27/18 21:01 Last Admin: 05/27/18 21:40 Dose: 40 mg Pantoprazole Sodium (Protonix) 40 mg PO BID [facility] Last Admin: 05/29/18 08:27 Dose: 40 mg Potassium Chloride (Pharmacy To Dose - Potassium Replacement) 0 dose .XX ASDIRECTED PRN PRN Reason: RX TO WATCH K Quetiapine Fumarate (Seroquel) 50 mg PO BEDTIME [facility] Last Admin: 05/28/18 20:33 Dose: 50 mg Quetiapine Fumarate (Seroquel) 50 mg PO BEDTIME [facility] Rocuronium [place] (Zemuron) 60 mg IVPUSH ONETIME ONE Stop: 05/29/18 15:26 Last Admin: 05/29/18 15:25 Dose: 60 mg Scopolamine (Transderm-Scop) 1.5 mg TRDERM Q72H ONE Stop: 05/25/18 20:01 Last Admin: 05/25/18 20:49 Dose: 1.5 mg Scopolamine (Transderm-Scop) 1.5 mg TOP ONETIME ONE Stop: 06/03/18 09:57 Last Admin: 06/03/18 10:17 Dose: 1.5 mg Topiramate (Topamax) 25 mg PO BID [facility] Last Admin: 05/29/18 08:25 Dose: 25 mg Topiramate (Topamax) 25 mg PO BID [facility] - Exam Quality Assessment: Supplemental Oxygen, Urine Catheter, DVT Prophylaxis General: Lethargic HEENT: Pupils Equal, Pupils Reactive, EOMI Neck: Trachea Midline, No JVD Lungs: Normal Respiratory Effort, Decreased Breath Sounds Cardiovascular: Regular Rate, Regular Rhythm GI/Abdominal Exam: Normal Bowel Sounds, Soft, Non-Tender, No Organomegaly, No Distention (Male) Exam: Deferred Back Exam: Normal Inspection Extremities: Normal Inspection, Non-Tender, Normal Capillary Refill Skin: Warm Neurological: No New Focal Deficit Psy/Mental Status: Agitated, Withdrawal Symptoms - Problem List Review Problem List Initiated/Reviewed/Updated: Yes - My Orders Last 24 Hours: My Active Orders 06/05/18 05:00 BMP [BASIC METABOLIC PANEL,BMP] [CHEM] DAILY CBC WITH AUTO DIFF [HEME] DAILY MAGNESIUM [CHEM] DAILY 06/06/18 05:00 BMP [BASIC METABOLIC PANEL,BMP] [CHEM] DAILY CBC WITH AUTO DIFF [HEME] DAILY MAGNESIUM [CHEM] DAILY 06/06/18 10:00 Remove Patch 0 ea TRDERM ONETIME ONE 06/07/18 05:00 BMP [BASIC METABOLIC PANEL,BMP] [CHEM] DAILY CBC WITH AUTO DIFF [HEME] DAILY MAGNESIUM [CHEM] DAILY - Plan Plan:: Assessment/Plan: Acute: POST EXTUBATION DAY 3 HALDOL/ATIVAN USE FOR ACUTE ETOH WITHDRAWAL/CHRONIC DEPENDENCE WITH SEVERE AGITATION, UNABLE TO REDIRECT. Original Note: Delirium Tremens on Mechanical Ventilator - Severe ETOH Withdrawal - RASS -4; advance to -5 - Plan to hopefully extubate after 48hrs - Continue IV Zosyn and will add Levaquin for aspiration coverage (had a lot for oral secretion during intubation) - Continue IV Propofol and Midazolam drip per paper CIWAA Protocol; if we run out of versed will augment with Ativan drip - CXR shows stable placement of NGT and Tip of ETT; previously had increased density within the left lung base; repeat CXR. ETOH Withdrawal Symptoms w/ Aggression and Combativeness - Carries a hx/o Chronic ETOH Use - Alcoholism is now causing serious health issues - VISHNU is 0.38 - CIWA score 13->20 - Thiamine, Folic Acid, and MVI - Midazolam drip per Protocol (see Manual Provided) - SAC; refused services; we will try again once alert and awake - Hold Tele-psych consult; he is not appropriate at this time - Advised to quit drinking - Discussed option for possible intubation if his aggression/combativeness persists; mom consented Hyponatremia, Continues to Improve - NA 127-->132-->134 2/2 D5W infusion - No episode of seizures observed - Restart D5WNS 0.9% with 20mEq of IVF at 50 cc/hr for glucose maintenance Nicotine Dependence - Smokes Cigarettes: 2ppd - Nicotine patch daily Hypomagnesemia - Mg 1.6-->1.6--> 1.2 - 2/2 NPO status - Replete and monitor Resolved: S/p Hypokalemia - K 3.1-->4.3 - 2/2 GI Loss - Replete and monitor S/p Severe Pancreatitis - Carries a hx/o Chronic ETOH Use/Dependence - 2/2 ETOH Pancreatitis; drinks heavily - VISHNU level is 0.38 - Lipase is 5831-->3801-->1115-->548-->407 - CT scan report reads fairly severe pancreatitis with diffuse surrounding inflammatory change, mild pancreatic edema as well as fluid around the pancreas extending into the paracolic gutter and into the dependent portion of the pelvis. - MIKEY' Criteria: 1 = LHD level of 512-1% predicted Mortality; BISAP score is 0 (Patients with a BISAP Score of 0 had <1% risk of mortality) - Continue IV fluids, pain control, anti-emesis and electrolytes supplement - May start clear liquid diet and advance to soft and regular (nonfatty/ nongreasy meal) as tolerated - Excellent urine output S/p Transaminitis - AST/ALT= 2:1; 138:66-->91:48-->65:37 - 2/2 ETOH Abuse - IV fluids and will avoid acetaminophen Dysphagia-swallow eval and clear liquids if appropriate. Chronic: HTN ETOH Pancreatitis Alcoholism Depression Fatty Liver - 2/2 Chronic ETOH Use - CT Scan report reads prominent fatty infiltration within the liver; seen on CT scan 10/29/2016 as well - NPO for now except ice chips, sips fo water and oral meds - Advised to quit drinking Substance Abuse: Oxycodone, Marijuana, Amphetamine and Meth Plan: He looks comfortable this morning Routine AM Labs Continue CIWA Protocol GI/DVT PPx: PPI/SCDs SW/CM for d/c planning Additional orders as above Code status:1 LOS anticipate > 96hrs due patient is on mechanical ventilator; tolerating extubation. Advance diet as tolerated. Psych/SA consults, TBD. LOS>96 hours with sever ETOH withdrawal
[2018-06-04] MEDS: Topiramate 25 MG Tab PO SCH (20:03)
[2018-06-04] MEDS: Folic Acid 1 MG Tab PO SCH (20:18)
[2018-06-05] MEDS: Haloperidol Lactate 5 MG/ML SDV IVPUSH SCH ×3 (00:51→15:34)
[2018-06-05] MEDS: LORazepam 80 MG in Sodium Chloride 0.9% 40 ML IV SCH ×2 (02:09→10:19)
[2018-06-05] MEDS: diazePAM 5 MG/ML-2ml Syringe IV SCH ×2 (03:44→15:35)
[2018-06-05] MEDS: Piperacillin/Tazobactam 4.5 GM in Sodium Chloride 0.9% 100 ML IV SCH ×2 (06:40→15:38)
[2018-06-05] MEDS: chlordiazePOXIDE 25 MG Cap PO SCH ×3 (08:13→20:01)
[2018-06-05] MEDS: guaiFENesin 600 MG Tab.ER PO SCH ×2 (08:13→20:21)
[2018-06-05] MEDS: Famotidine 20 MG Tab PO SCH ×2 (08:13→20:02)
[2018-06-05] MEDS: Thiamine 100 MG Tab PO SCH (08:13)
[2018-06-05] MEDS: QUEtiapine 25 MG Tab PO SCH ×3 (08:49→20:02)
[2018-06-05] MEDS ORDERED: Magnesium Sulfate/Water 4 GM in Premix Bag 1 BAG IV ONE (10:04)
[2018-06-05] MEDS ORDERED: LORazepam 2 MG/ML SDV IVPUSH ONE (12:08)
[2018-06-05] MEDS ORDERED: Haloperidol Lactate 5 MG/ML SDV IVPUSH ONE (12:09)
[2018-06-05] MEDS ORDERED: Phenylephrine 0.5% Nasal Spray 15 ML Bot NASBOTH ONE (12:10)
--- NOTE | 2018-06-05 14:59 | CR ---
Chest: Portable view of the chest was obtained. Comparison: Prior chest x-ray of 06/03/18. Feeding tube is seen. Distal end is kinked with tip then ascending superiorly. Tip lies within the fundus of the stomach. Heart size and mediastinum are within normal limits. Slight parenchymal density is seen within the right upper lung which appears is an interval change from previous study. Findings within the left base on prior study continue to improve and are not appreciated on current exam. Lungs otherwise are clear. Bony structures are grossly intact. Impression: 1. Tip of nasogastric tube within the stomach. Distal end is kinked. 2. Slight parenchymal density within the right upper lung. This appears as an interval change from previous exam and could represent a new area of aspiration or pneumonia as well as atelectasis. 3. Previously noted left retrocardiac density is no longer appreciated. Diagnostic code #3
--- NOTE | 2018-06-05 15:48 | CR ---
Chest: Portable view of the chest was obtained. Comparison: Previous chest x-ray performed earlier on same day (2:20 PM). Feeding tube is no longer kinked and tip is located within the body of the stomach. Heart size is within normal limits for portable technique. Upper mediastinum is normal. Slight parenchymal density is again noted within the right upper lung. Lungs otherwise are clear. Bony structures are grossly intact. Impression: 1. Feeding tube no longer kinked with tip located within the body of the stomach. 2. Slight parenchymal density remains within the right upper lung. Diagnostic code #3
--- NOTE | 2018-06-05 16:00 | PCM.PN ---
- General Info Date of Service: 06/05/18 Functional Status: Reports: Urinating - Review of Systems General: Reports: No Symptoms HEENT: Reports: No Symptoms Pulmonary: Reports: No Symptoms Cardiovascular: Reports: No Symptoms Gastrointestinal: Reports: No Symptoms Genitourinary: Reports: No Symptoms Musculoskeletal: Reports: No Symptoms Skin: Reports: No Symptoms Neurological: Reports: Confusion Psychiatric: Reports: Mood Lability, Agitation - Patient Data Vitals - Most Recent: Last Vital Signs Temp 36.3 C 06/05/18 12:00 Pulse 53 L 06/04/18 12:00 Resp 12 06/05/18 12:00 BP 129/93 H 06/05/18 12:00 Pulse Ox 97 06/05/18 12:00 Weight - Most Recent: 67.993 kg I&O - Last 24 Hours: Intake & Output 06/05/18 06/05/18 06/05/18 06:59 14:59 22:59 Intake Total 1194 110 Output Total 535 285 Balance 659 -175 Lab Results Last 24 Hours: Laboratory Results - last 24 hr 06/04/18 06/05/18 06/05/18 Range/Units 18:44 00:04 06:19 WBC (4.23-9.07) K/mm3 RBC (4.63-6.08) M/mm3 Hgb (13.7-17.5) gm/L Hct (40.1-51.0) % MCV (79.0-92.2) fl MCH (25.7-32.2) pg MCHC (32.2-35.5) g/dl RDW Std Deviation (35.1-43.9) fL Plt Count (163-337) K/mm3 MPV (9.4-12.3) fl Neut % (Auto) (34.0-67.9) % Lymph % (Auto) (21.8-53.1) % [place] % (Auto) (5.3-12.2) % Eos % (Auto) (0.8-7.0) Baso % (Auto) (0.1-1.2) % Neut # (Auto) (1.78-5.38) K/mm3 Lymph # (Auto) (1.32-3.57) K/mm3 [place] # (Auto) (0.30-0.82) K/mm3 Eos # (Auto) (0.04-0.54) K/mm3 Baso # (Auto) (0.01-0.08) K/mm3 Manual Slide Review Sodium (136-145) mEq/L Potassium (3.5-5.1) mEq/L Chloride (98-107) mEq/L Carbon Dioxide (21-32) mEq/L Anion Gap (5-15) BUN (7-18) mg/dL Creatinine (0.7-1.3) mg/dL Est Cr Clr Drug Dosing mL/min Estimated GFR (MDRD) (>60) mL/min BUN/Creatinine Ratio (14-18) Glucose (74-106) mg/dL POC Glucose 98 113 H 98 (70-105) mg/dL Calcium (8.5-10.1) mg/dL Magnesium (1.8-2.4) mg/dl Urine Color (Yellow) Urine Appearance (Clear) Urine pH (5.0-8.0) Ur Specific [place] (1.005-1.030) Urine Protein (Negative) Urine Glucose (UA) (Negative) Urine Ketones (Negative) Urine Occult Blood (Negative) Urine Nitrite (Negative) Urine Bilirubin (Negative) Urine Urobilinogen (0.2-1.0) Ur Leukocyte Esterase (Negative) Urine RBC (0-5) /hpf Urine WBC (0-5) /hpf Ur Epithelial Cells (0-5) /hpf Urine Bacteria (FEW) /hpf Urine Mucus (FEW) /hpf 06/05/18 06/05/18 06/05/18 Range/Units 06:20 06:20 10:04 WBC 10.27 H (4.23-9.07) K/mm3 RBC 4.25 L (4.63-6.08) M/mm3 Hgb 12.6 L (13.7-17.5) gm/L Hct 37.9 L (40.1-51.0) % MCV 89.2 (79.0-92.2) fl MCH 29.6 (25.7-32.2) pg MCHC 33.2 (32.2-35.5) g/dl RDW Std Deviation 44.6 H (35.1-43.9) fL Plt Count 486 H (163-337) K/mm3 MPV 10.3 (9.4-12.3) fl Neut % (Auto) 62.3 (34.0-67.9) % Lymph % (Auto) 16.7 L (21.8-53.1) % [place] % (Auto) 16.5 H (5.3-12.2) % Eos % (Auto) 1.5 (0.8-7.0) Baso % (Auto) 0.6 (0.1-1.2) % Neut # (Auto) 6.41 H (1.78-5.38) K/mm3 Lymph # (Auto) 1.71 (1.32-3.57) K/mm3 [place] # (Auto) 1.69 H (0.30-0.82) K/mm3 Eos # (Auto) 0.15 (0.04-0.54) K/mm3 Baso # (Auto) 0.06 (0.01-0.08) K/mm3 Manual Slide Review Abnormal smear Sodium 138 (136-145) mEq/L Potassium 3.8 (3.5-5.1) mEq/L Chloride 107 (98-107) mEq/L Carbon Dioxide 21 (21-32) mEq/L Anion Gap 13.8 (5-15) BUN 5 L (7-18) mg/dL Creatinine 0.8 (0.7-1.3) mg/dL Est Cr Clr Drug Dosing 123.28 mL/min Estimated GFR (MDRD) > 60 (>60) mL/min BUN/Creatinine Ratio 6.3 L (14-18) Glucose 101 (74-106) mg/dL POC Glucose (70-105) mg/dL Calcium 8.6 (8.5-10.1) mg/dL Magnesium 1.9 (1.8-2.4) mg/dl Urine Color Yellow (Yellow) Urine Appearance Clear (Clear) Urine pH 6.5 (5.0-8.0) Ur Specific [place] 1.025 (1.005-1.030) Urine Protein Negative (Negative) Urine Glucose (UA) Negative (Negative) Urine Ketones Negative (Negative) Urine Occult Blood Trace-intact H (Negative) Urine Nitrite Negative (Negative) Urine Bilirubin Negative (Negative) Urine Urobilinogen 1.0 (0.2-1.0) Ur Leukocyte Esterase Negative (Negative) Urine RBC 0-5 (0-5) /hpf Urine WBC 0-5 (0-5) /hpf Ur Epithelial Cells Not seen (0-5) /hpf Urine Bacteria Few (FEW) /hpf Urine Mucus Few (FEW) /hpf [facility] Results Last 24 Hours: Microbiology 05/30/18 06:55 Aerobic Blood Culture - Preliminary Blood - Venous NO GROWTH AFTER 6 DAYS Anaerobic Blood Culture - Preliminary NO GROWTH AFTER 6 DAYS 05/30/18 07:05 Aerobic Blood Culture - Preliminary Blood - Venous - Lab Draw NO GROWTH AFTER 6 DAYS Anaerobic Blood Culture - Preliminary NO GROWTH AFTER 6 DAYS Med Orders - Current: Current Medications Acetaminophen (Tylenol) 650 mg RECTAL Q6H PRN PRN Reason: Pain/Fever/DRISCOLL Last Admin: 05/30/18 07:36 Dose: 650 mg Acetaminophen (Tylenol) 650 mg PO Q6H PRN PRN Reason: Pain/Fever/DRISCOLL Last Admin: 05/31/18 11:34 Dose: 650 mg Albuterol/Ipratropium (Duoneb 3.0-0.5 Mg/3 Ml) 3 ml NEB Q4H PRN PRN Reason: Shortness Of Breath/wheezing Chlordiazepoxide HCl (Librium) 75 mg PO TID [facility] Last Admin: 06/05/18 08:13 Dose: 75 mg Clonidine HCl (Catapres) 0.1 mg PO Q4H PRN PRN Reason: Agitation Last Admin: 06/03/18 20:01 Dose: 0.1 mg Diazepam (Valium) 10 mg IV Q12H [facility] Last Admin: 06/05/18 15:35 Dose: Not Given Famotidine (Pepcid) 20 mg PO BID [facility] Last Admin: 06/05/18 08:13 Dose: 20 mg Folic Acid (Folic Acid) 1 mg PO BEDTIME [facility] Last Admin: 06/04/18 20:18 Dose: Not Given Guaifenesin (Mucinex) 600 mg PO BID [facility] Last Admin: 06/05/18 08:13 Dose: Not Given Haloperidol Lactate (Haldol) 4 mg IVPUSH Q8H [facility] Last Admin: 06/05/18 15:34 Dose: Not Given Hydralazine HCl (Apresoline) 20 mg IVPUSH Q4H PRN PRN Reason: Hypertension Last Admin: 06/03/18 16:50 Dose: 20 mg Hydromorphone HCl (Dilaudid) 2 mg IVPUSH Q6H PRN PRN Reason: Pain (severe 7-10) Last Admin: 06/01/18 21:36 Dose: 2 mg Potassium Chloride/Dextrose/Sod Cl (D5 Ns With 20 Meq Kcl) 1,000 mls @ 75 mls/ hr IV ASDIRECTED [facility] Last Admin: 06/04/18 23:37 Dose: 75 mls/hr Lorazepam 80 mg/ Sodium (Chloride) 80 mls @ 15 mls/hr IV TITRATE [facility] Last Infusion: 06/05/18 14:00 Dose: 0 mls/hr Lorazepam (Ativan) 2 mg IVPUSH Q4H PRN PRN Reason: Seizures Lorazepam (Ativan) 0 mg IVPUSH Q4H PRN; Protocol PRN Reason: Anxiety Last Admin: 06/04/18 18:30 Dose: 3 mg Metoprolol Tartrate (Lopressor) 5 mg IVPUSH Q4H PRN PRN Reason: Tachycardia Last Admin: 05/30/18 08:07 Dose: 5 mg Miscellaneous Information (Remove Patch) 1 ea TRDERM DAILY PRN PRN Reason: NICOTINE DEPENDENCE Last Admin: 05/27/18 18:31 Dose: 1 ea Miscellaneous Information (Remove Patch) 1 ea TRDERM Q7D [facility] Last Admin: 06/04/18 05:15 Dose: Not Given Miscellaneous Information (Remove Patch) 0 ea TRDERM ONETIME ONE Stop: 06/06/18 10:01 Nicotine (Habitrol) 21 mg TRDERM DAILY PRN PRN Reason: Nicotine Dependence Last Admin: 05/27/18 21:42 Dose: 21 mg Ondansetron HCl (Zofran) 4 mg IV Q6H PRN PRN Reason: Nausea/Vomiting Quetiapine Fumarate (Seroquel) 25 mg PO BID [facility] Last Admin: 06/05/18 10:46 Dose: 25 mg Thiamine HCl (Vitamin B-1) 100 mg PO DAILY [facility] Last Admin: 06/05/18 08:13 Dose: Not Given Topiramate (Topamax) 25 mg PO BEDTIME [facility] Last Admin: 06/04/18 20:03 Dose: 25 mg Discontinued Medications Bumetanide (Bumex) 0.5 mg IVPUSH ONETIME ONE Stop: 05/31/18 08:16 Last Admin: 05/31/18 08:25 Dose: 0.5 mg Chlordiazepoxide HCl (Librium) 25 mg PO Q8H PRN PRN Reason: Withdrawal Symptoms Last Admin: 05/26/18 06:27 Dose: 25 mg Chlordiazepoxide HCl (Librium) 25 mg PO ONETIME ONE Stop: 05/25/18 22:01 Last Admin: 05/25/18 22:07 Dose: 25 mg Chlordiazepoxide HCl (Librium) 25 mg PO Q8H [facility] Last Admin: 05/28/18 05:02 Dose: 25 mg Chlordiazepoxide HCl (Librium) 25 mg PO Q8H PRN PRN Reason: Withdrawal Symptoms Chlordiazepoxide HCl (Librium) 25 mg PO Q6H PRN PRN Reason: Withdrawal Symptoms Last Admin: 05/28/18 14:59 Dose: 25 mg Chlordiazepoxide HCl (Librium) 50 mg PO Q6H PRN PRN Reason: Withdrawal Symptoms Last Admin: 05/29/18 08:26 Dose: 50 mg Chlordiazepoxide HCl (Librium) 25 mg PO TID [facility] Last Admin: 06/02/18 20:14 Dose: 25 mg Chlordiazepoxide HCl (Librium) 50 mg PO ONETIME ONE Stop: 06/02/18 20:47 Last Admin: 06/02/18 21:03 Dose: 50 mg Clonidine HCl (Catapres-Tts 3) 0.3 mg TRDERM Q7D [facility] Last Admin: 05/28/18 03:09 Dose: 0.3 mg Al Hydroxide/Mg Hydroxide 30 (ml/ Lidocaine HCl 15 ml) 0 ml PO ONETIME ONE Stop: 05/25/18 16:32 Last Admin: 05/25/18 16:46 Dose: 45 ml Diatrizoate Meglum/Diatrizoate Sod (Gastrografin 37%) 90 ml PO ONETIME ONE Stop: 05/25/18 18:05 Last Admin: 05/25/18 18:16 Dose: 90 ml Diazepam (Valium) 5 mg IV STAT ONE Stop: 06/01/18 16:35 Last Admin: 06/01/18 16:52 Dose: 5 mg Diphenhydramine HCl (Benadryl) 50 mg IVPUSH ONETIME ONE Stop: 05/25/18 21:44 Last Admin: 05/25/18 21:54 Dose: 50 mg Famotidine (Pepcid) 20 mg IVPUSH BID [facility] Last Admin: 06/01/18 09:38 Dose: 20 mg Folic Acid (Folic Acid) 1 mg PO DAILY [facility] Stop: 05/28/18 09:01 Last Admin: 05/28/18 08:00 Dose: 1 mg Haloperidol Lactate (Haldol) 2 mg IM Q4H PRN PRN Reason: Agitation Haloperidol Lactate (Haldol) 2 mg IM Q4H PRN PRN Reason: Withdrawal Symptoms Last Admin: 05/28/18 15:26 Dose: 2 mg Haloperidol Lactate (Haldol) 5 mg IM Q4H PRN PRN Reason: Withdrawal Symptoms Last Admin: 05/29/18 06:40 Dose: 5 mg Haloperidol Lactate (Haldol) 5 mg IM ONETIME ONE Stop: 05/29/18 09:26 Last Admin: 05/29/18 09:25 Dose: 5 mg Haloperidol Lactate (Haldol) 4 mg IVPUSH STAT STA Stop: 06/01/18 09:28 Last Admin: 06/01/18 09:37 Dose: 4 mg Haloperidol Lactate (Haldol) 4 mg IVPUSH STAT STA Stop: 06/01/18 12:51 Last Admin: 06/01/18 13:00 Dose: 4 mg Haloperidol Lactate (Haldol) 3 mg IVPUSH ONETIME ONE Stop: 06/05/18 12:10 Last Admin: 06/05/18 13:59 Dose: 3 mg Hydromorphone HCl (Dilaudid) 1 mg IVPUSH ONETIME STA Stop: 05/25/18 16:48 Last Admin: 05/25/18 17:01 Dose: 1 mg Hydromorphone HCl (Dilaudid) 0.5 mg IVPUSH ONETIME ONE Stop: 05/25/18 19:40 Last Admin: 05/25/18 20:12 Dose: Not Given Hydromorphone HCl (Dilaudid) 1 mg IVPUSH Q4H PRN PRN Reason: Pain (severe 7-10) Last Admin: 05/25/18 21:46 Dose: 1 mg Hydromorphone HCl (Dilaudid) 2 mg IVPUSH Q4H PRN PRN Reason: Pain (severe 7-10) Last Admin: 05/27/18 01:09 Dose: 2 mg Hydromorphone HCl (Dilaudid) 1 mg IVPUSH Q6H PRN PRN Reason: Pain (severe 7-10) Last Admin: 05/28/18 05:48 Dose: 1 mg Hydromorphone HCl (Dilaudid) 0.5 mg IVPUSH Q6H PRN PRN Reason: Pain (severe 7-10) Last Admin: 05/29/18 03:23 Dose: 0.5 mg Sodium Chloride (Normal Saline) 1,000 mls @ 999 mls/hr IV ASDIRECTED [facility] Last Admin: 05/25/18 17:03 Dose: 999 mls/hr Thiamine HCl 100 mg/ Sodium (Chloride) 51 mls @ 100 mls/hr IV ONETIME ONE Stop: 05/25/18 20:30 Last Admin: 05/25/18 20:58 Dose: 100 mls/hr Potassium Chloride/Dextrose/Sod Cl (D5 Ns With 20 Meq Kcl) 1,000 mls @ 175 mls/ hr IV ASDIRECTED [facility] Last Admin: 05/27/18 08:24 Dose: 175 mls/hr Potassium Chloride 10 meq/ (Premix) 100 mls @ 100 mls/hr IV Q1H [facility] Stop: 05/26/18 02:59 Last Admin: 05/26/18 03:11 Dose: 100 mls/hr Potassium Chloride/Dextrose/Sod Cl (D5 Ns With 20 Meq Kcl) 1,000 mls @ 100 mls/ hr IV ASDIRECTED [facility] Last Admin: 05/28/18 01:57 Dose: 100 mls/hr Magnesium Sulfate 4 gm/ Premix 100 mls @ 25 mls/hr IV Q4H [facility] Stop: 05/28/18 15:59 Last Admin: 05/28/18 11:41 Dose: 25 mls/hr Potassium Chloride/Sodium Chloride (Normal Saline With 20 Meq Kcl) 1,000 mls @ 125 mls/hr IV ASDIRECTED [facility] Last Admin: 05/30/18 07:04 Dose: 125 mls/hr Midazolam HCl 50 mg/ Sodium (Chloride) 50 mls @ 0.5 mls/hr IV TITRATE [facility]; Protocol Last Titration: 05/31/18 08:46 Dose: 0 mg/hr, 0 mls/hr Propofol (Diprivan 100 Ml) Confirm Administered Dose 100 mls @ as directed .ROUTE .STK-MED ONE Stop: 05/29/18 15:04 Last Admin: 05/29/18 16:22 Dose: Not Given Propofol (Diprivan 100 Ml) 100 mls @ 2.077 mls/hr IV TITRATE [facility]; Protocol Last Titration: 05/31/18 08:46 Dose: 0 mcg/kg/min, 0 mls/hr Piperacillin Sod/Tazobactam (Sod 4.5 gm/ Sodium Chloride) 100 mls @ 25 mls/hr IV Q8H [facility] Stop: 06/05/18 15:31 Last Admin: 06/05/18 15:38 Dose: 25 mls/hr Piperacillin Sod/Tazobactam (Sod 4.5 gm/ Sodium Chloride) 100 mls @ 200 mls/hr IV ONETIME ONE Stop: 05/30/18 07:59 Last Admin: 05/30/18 07:32 Dose: 200 mls/hr Magnesium Sulfate 4 gm/ Premix 50 mls @ 12.5 mls/hr IV ONETIME ONE Stop: 05/30/18 13:14 Last Admin: 05/30/18 10:08 Dose: 12.5 mls/hr Magnesium Sulfate 2 gm/ Premix 50 mls @ 25 mls/hr IV ONETIME ONE Stop: 05/30/18 15:59 Last Admin: 05/30/18 14:12 Dose: 25 mls/hr Levofloxacin/Dextrose 750 mg/ (Premix) 150 mls @ 100 mls/hr IV Q24H [facility] Last Admin: 06/01/18 10:50 Dose: Not Given Lorazepam 40 mg/ Sodium (Chloride) 40 mls @ 5 mls/hr IV ASDIRECTED [facility] Last Infusion: 06/03/18 17:17 Dose: 10 mls/hr Magnesium Sulfate 4 gm/ Premix 50 mls @ 150 mls/hr IV ONETIME ONE Stop: 06/01/18 13:11 Last Admin: 06/01/18 13:53 Dose: 150 mls/hr Magnesium Sulfate 4 gm/ Premix 50 mls @ 12.5 mls/hr IV ONETIME ONE Stop: 06/02/18 16:59 Last Admin: 06/02/18 13:09 Dose: 12.5 mls/hr Magnesium Sulfate 4 gm/ Premix 50 mls @ 12.5 mls/hr IV ONETIME ONE Stop: 06/04/18 11:29 Last Admin: 06/04/18 08:01 Dose: 12.5 mls/hr Magnesium Sulfate 4 gm/ Premix 50 mls @ 12.5 mls/hr IV ONETIME ONE Stop: 06/04/18 22:26 Last Admin: 06/04/18 19:35 Dose: 12.5 mls/hr Magnesium Sulfate 4 gm/ Premix 50 mls @ 12.5 mls/hr IV ONETIME ONE Stop: 06/05/18 14:03 Last Admin: 06/05/18 10:09 Dose: 12.5 mls/hr Ibuprofen (Motrin) 600 mg PO Q6H PRN PRN Reason: Pain (moderate 4-6) Iopamidol (Isovue-370 (76%)) 100 ml IV ONETIME ONE Stop: 05/25/18 18:06 Last Admin: 05/25/18 18:18 Dose: 100 ml Ketamine HCl (Ketalar) 50 mg IV ONETIME ONE Stop: 05/29/18 15:24 Last Admin: 05/29/18 15:23 Dose: 50 mg Lorazepam (Ativan) 0 mg IV Q6H PRN; Protocol PRN Reason: Withdrawal Symptoms Last Admin: 05/27/18 23:16 Dose: 1 mg Lorazepam (Ativan) 1 - 3 mg IV ASDIRECTED PRN; Protocol PRN Reason: Withdrawal Symptoms Last Admin: 05/29/18 09:46 Dose: 3 mg Lorazepam (Ativan) Confirm Administered Dose 2 mg .ROUTE .STK-MED ONE Stop: 05/28/18 00:40 Last Admin: 05/28/18 00:57 Dose: Not Given Lorazepam (Ativan) 2 mg IVPUSH ONETIME ONE Stop: 05/28/18 00:41 Last Admin: 05/28/18 00:40 Dose: 2 mg Lorazepam (Ativan) 6 mg IVPUSH STAT STA Stop: 06/01/18 12:51 Last Admin: 06/01/18 13:01 Dose: 6 mg Lorazepam (Ativan) 5 mg IVPUSH ONETIME ONE Stop: 06/05/18 12:09 Last Admin: 06/05/18 14:03 Dose: 5 mg Magnesium Sulfate (Pharmacy To Dose - Magnesium Replacement) 0 dose .XX ASDIRECTED PRN PRN Reason: RX TO WATCH MAG Midazolam HCl (Versed 1 Mg/Ml) Confirm Administered Dose 2 mg .ROUTE .STK-MED ONE Stop: 05/29/18 09:28 Last Admin: 05/29/18 09:30 Dose: 2 mg Midazolam HCl (Versed 5 Mg/Ml) Confirm Administered Dose 25 mg .ROUTE .STK-MED ONE Stop: 05/30/18 19:24 Last Admin: 05/30/18 19:30 Dose: Not Given Miscellaneous Information (Remove Patch) 1 ea TRDERM ONETIME ONE Stop: 05/28/18 20:01 Last Admin: 05/28/18 20:35 Dose: 1 ea Miscellaneous Information (Remove Patch) 1 ea TRDERM ONETIME ONE Stop: 05/28/18 22:01 Last Admin: 05/28/18 21:33 Dose: 1 ea Modafinil (Provigil) 200 mg PO NOW STA Stop: 05/31/18 08:25 Last Admin: 05/31/18 08:39 Dose: 200 mg Multivitamins (Thera) 1 each PO DAILY [facility] Stop: 05/29/18 09:01 Last Admin: 05/29/18 08:26 Dose: 1 each Ondansetron HCl (Zofran Odt) 4 mg PO ONETIME ONE Stop: 05/25/18 16:34 Last Admin: 05/25/18 17:01 Dose: Not Given Ondansetron HCl (Zofran) 4 mg IVPUSH ONETIME ONE Stop: 05/25/18 16:48 Last Admin: 05/25/18 16:59 Dose: 4 mg Oxycodone HCl (Oxycodone) 5 mg PO Q4H PRN PRN Reason: Pain (moderate 4-6) Last Admin: 05/25/18 20:51 Dose: 5 mg Oxycodone HCl (Oxycontin) 20 mg PO Q12HR [facility] Last Admin: 05/28/18 08:01 Dose: Not Given Pantoprazole Sodium (Protonix) 40 mg PO ONETIME ONE Stop: 05/25/18 16:33 Last Admin: 05/25/18 17:05 Dose: Not Given Pantoprazole Sodium (Protonix Iv) 40 mg IVPUSH ONETIME ONE Stop: 05/25/18 16:48 Last Admin: 05/25/18 17:03 Dose: 40 mg Pantoprazole Sodium (Protonix Iv) 40 mg IV Q12HR [facility] Pantoprazole Sodium (Protonix Iv) 40 mg IV Q12HR [facility] Stop: 05/27/18 21:01 Last Admin: 05/27/18 21:40 Dose: 40 mg Pantoprazole Sodium (Protonix) 40 mg PO BID [facility] Last Admin: 05/29/18 08:27 Dose: 40 mg Phenylephrine HCl (Mario-Synephrine 0.5% Regular Nasal [place]) 0 ml NASBOTH ONETIME ONE Stop: 06/05/18 12:11 Last Admin: 06/05/18 14:06 Dose: 2 spray Potassium Chloride (Pharmacy To Dose - Potassium Replacement) 0 dose .XX ASDIRECTED PRN PRN Reason: RX TO WATCH K Quetiapine Fumarate (Seroquel) 50 mg PO BEDTIME [facility] Last Admin: 05/28/18 20:33 Dose: 50 mg Quetiapine Fumarate (Seroquel) 50 mg PO BEDTIME [facility] Rocuronium [place] (Zemuron) 60 mg IVPUSH ONETIME ONE Stop: 05/29/18 15:26 Last Admin: 05/29/18 15:25 Dose: 60 mg Scopolamine (Transderm-Scop) 1.5 mg TRDERM Q72H ONE Stop: 05/25/18 20:01 Last Admin: 05/25/18 20:49 Dose: 1.5 mg Scopolamine (Transderm-Scop) 1.5 mg TOP ONETIME ONE Stop: 06/03/18 09:57 Last Admin: 06/03/18 10:17 Dose: 1.5 mg Topiramate (Topamax) 25 mg PO BID [facility] Last Admin: 05/29/18 08:25 Dose: 25 mg Topiramate (Topamax) 25 mg PO BID [facility] - Exam Quality Assessment: Urine Catheter, DVT Prophylaxis General: Sedated HEENT: Pupils Equal, Pupils Reactive, EOMI Neck: Trachea Midline, No JVD Lungs: Normal Respiratory Effort Cardiovascular: Regular Rate, Regular Rhythm GI/Abdominal Exam: Normal Bowel Sounds, Soft, Non-Tender, No Organomegaly, No Distention (Male) Exam: Deferred Back Exam: Normal Inspection Extremities: Normal Inspection, Non-Tender, Normal Capillary Refill Skin: Warm Neurological: No New Focal Deficit Psy/Mental Status: Agitated, Withdrawal Symptoms - Problem List Review Problem List Initiated/Reviewed/Updated: Yes - My Orders Last 24 Hours: My Active Orders 06/06/18 05:00 BMP [BASIC METABOLIC PANEL,BMP] [CHEM] DAILY CBC WITH AUTO DIFF [HEME] DAILY MAGNESIUM [CHEM] DAILY 06/06/18 10:00 Remove Patch 0 ea TRDERM ONETIME ONE 06/07/18 05:00 BMP [BASIC METABOLIC PANEL,BMP] [CHEM] DAILY CBC WITH AUTO DIFF [HEME] DAILY MAGNESIUM [CHEM] DAILY - Plan Plan:: Assessment/Plan: Acute: POST EXTUBATION DAY 3 HALDOL/ATIVAN USE FOR ACUTE ETOH WITHDRAWAL/CHRONIC DEPENDENCE WITH SEVERE AGITATION, UNABLE TO REDIRECT. Original Note: Delirium Tremens on Mechanical Ventilator - Severe ETOH Withdrawal - RASS -4; advance to -5 - Plan to hopefully extubate after 48hrs - Continue IV Zosyn and will add Levaquin for aspiration coverage (had a lot for oral secretion during intubation) - Continue IV Propofol and Midazolam drip per paper CIWAA Protocol; if we run out of versed will augment with Ativan drip - CXR shows stable placement of NGT and Tip of ETT; previously had increased density within the left lung base; repeat CXR. ETOH Withdrawal Symptoms w/ Aggression and Combativeness - Carries a hx/o Chronic ETOH Use - Alcoholism is now causing serious health issues - VISHNU is 0.38 - CIWA score 13->20 - Thiamine, Folic Acid, and MVI - Midazolam drip per Protocol (see Manual Provided) - SAC; refused services; we will try again once alert and awake - Hold Tele-psych consult; he is not appropriate at this time - Advised to quit drinking - Discussed option for possible intubation if his aggression/combativeness persists; mom consented Hyponatremia, resolved - NA 127-->132-->134 2/2 D5W infusion - No episode of seizures observed - Restart D5WNS 0.9% with 20mEq of IVF at 50 cc/hr for glucose maintenance Nicotine Dependence - Smokes Cigarettes: 2ppd - Nicotine patch daily Hypomagnesemia, aggresively replace - Mg 1.6-->1.6--> 1.2 - 2/2 NPO status - Replete and monitor Resolved: S/p Hypokalemia - K 3.1-->4.3 - 2/2 GI Loss - Replete and monitor S/p Severe Pancreatitis - Carries a hx/o Chronic ETOH Use/Dependence - 2/2 ETOH Pancreatitis; drinks heavily - VISHNU level is 0.38 - Lipase is 5831-->3801-->1115-->548-->407 - CT scan report reads fairly severe pancreatitis with diffuse surrounding inflammatory change, mild pancreatic edema as well as fluid around the pancreas extending into the paracolic gutter and into the dependent portion of the pelvis. - MIKYE' Criteria: 1 = LHD level of 512-1% predicted Mortality; BISAP score is 0 (Patients with a BISAP Score of 0 had <1% risk of mortality) - Continue IV fluids, pain control, anti-emesis and electrolytes supplement - May start clear liquid diet and advance to soft and regular (nonfatty/ nongreasy meal) as tolerated - Excellent urine output S/p Transaminitis - AST/ALT= 2:1; 138:66-->91:48-->65:37 - 2/2 ETOH Abuse - IV fluids and will avoid acetaminophen Nutrition--TF started after NGT placed. Jevity 1.2 40 cc/hr advance to 80 cc/hr , calories 2300 chey, protein 106 gm. Chronic: HTN ETOH Pancreatitis Alcoholism Depression Fatty Liver - 2/2 Chronic ETOH Use - CT Scan report reads prominent fatty infiltration within the liver; seen on CT scan 10/29/2016 as well - NPO for now except ice chips, sips fo water and oral meds - Advised to quit drinking Substance Abuse: Oxycodone, Marijuana, Amphetamine and Meth Plan: He looks comfortable this morning Routine AM Labs Continue CIWA Protocol GI/DVT PPx: PPI/SCDs SW/CM for d/c planning Additional orders as above Code status:1 LOS anticipate > 96hrs due patient is on mechanical ventilator; tolerating extubation. Advance diet as tolerated. Psych/SA consults, TBD. LOS>96 hours with severe ETOH withdrawal
[2018-06-05] MEDS: Enoxaparin 40 MG/0.4 ML Syringe SUBCUT SCH (20:01)
[2018-06-05] MEDS: Folic Acid 1 MG Tab PO SCH (20:02)
[2018-06-05] MEDS: Topiramate 25 MG Tab PO SCH (20:02)
[2018-06-05] MEDS: Haloperidol Lactate 5 MG/ML SDV IVPUSH PRN (21:35)
[2018-06-06] MEDS: Dextrose 5%-0.9% NaCl with KCl 1,000 ML IV SCH ×2 (02:54→16:16)
[2018-06-06] MEDS: LORazepam 80 MG in Sodium Chloride 0.9% 40 ML IV SCH (03:31)
[2018-06-06] MEDS: cloNIDine 0.1 MG Tab PO PRN (04:57)
[2018-06-06] MEDS ORDERED: Magnesium Sulfate/Water 4 GM in Premix Bag 1 BAG IV ONE (09:23)
[2018-06-06] MEDS: guaiFENesin 600 MG Tab.ER PO SCH ×2 (09:39→20:11)
[2018-06-06] MEDS: Famotidine 20 MG Tab PO SCH ×2 (09:39→20:10)
[2018-06-06] MEDS: chlordiazePOXIDE 25 MG Cap PO SCH ×3 (09:39→20:09)
[2018-06-06] MEDS: Thiamine 100 MG Tab PO SCH (09:39)
[2018-06-06] MEDS: QUEtiapine 25 MG Tab PO SCH ×2 (09:39→20:10)
[2018-06-06] MEDS ORDERED: Magnesium Sulfate/Water 50 ML ONE (09:41)
--- NOTE | 2018-06-06 10:45 | CR ---
Chest: Frontal view of the chest was obtained utilizing portable technique. Comparison: Prior chest x-ray 06/05/18. Feeding tube is seen. Tip lies within the proximal stomach. Lungs are clear with no acute parenchymal change. Heart size and mediastinum are within normal limits for portable technique. Impression: 1. Tip of feeding tube within the proximal stomach. 2. Nothing acute is otherwise seen on portable chest x-ray. Diagnostic code #2
[2018-06-06] MEDS: Haloperidol Lactate 5 MG/ML SDV IVPUSH PRN (13:57)
[2018-06-06] MEDS: LORazepam 2 MG/ML SDV IVPUSH PRN (14:11)
[2018-06-06] MEDS: diazePAM 5 MG/ML-2ml Syringe IV PRN (14:19)
--- NOTE | 2018-06-06 15:41 | PCM.PN ---
- General Info Date of Service: 06/06/18 Subjective Update: TOLERATED TF EASILY, HOWEVER ATIVAN AND MITTS WERE REMOVED AT 0615 HOURS THIS AM. NGT WAS PULLED OUT BY PATIENT AND REPALCED, RESUMPTION OF JEVITY IS TO START. Functional Status: Reports: Tolerating Diet - Review of Systems General: Reports: No Symptoms HEENT: Reports: No Symptoms Pulmonary: Reports: No Symptoms Cardiovascular: Reports: No Symptoms Gastrointestinal: Reports: No Symptoms Genitourinary: Reports: No Symptoms Musculoskeletal: Reports: No Symptoms Skin: Reports: No Symptoms Neurological: Reports: No Symptoms Psychiatric: Reports: No Symptoms - Patient Data Vitals - Most Recent: Last Vital Signs Temp 36.1 C 06/06/18 11:59 Pulse 57 L 06/06/18 07:52 Resp 16 06/06/18 11:59 BP 128/85 06/06/18 11:59 Pulse Ox 99 06/06/18 14:20 Weight - Most Recent: 67.993 kg I&O - Last 24 Hours: Intake & Output 06/06/18 06/06/18 06/06/18 06:59 14:59 22:59 Intake Total 1558 300 Output Total 635 725 Balance 923 -425 Lab Results Last 24 Hours: Laboratory Results - last 24 hr 06/05/18 06/05/18 06/05/18 Range/Units 12:34 18:24 23:39 WBC (4.23-9.07) K/mm3 RBC (4.63-6.08) M/mm3 Hgb (13.7-17.5) gm/L Hct (40.1-51.0) % MCV (79.0-92.2) fl MCH (25.7-32.2) pg MCHC (32.2-35.5) g/dl RDW Std Deviation (35.1-43.9) fL Plt Count (163-337) K/mm3 MPV (9.4-12.3) fl Neut % (Auto) (34.0-67.9) % Lymph % (Auto) (21.8-53.1) % [place] % (Auto) (5.3-12.2) % Eos % (Auto) (0.8-7.0) Baso % (Auto) (0.1-1.2) % Neut # (Auto) (1.78-5.38) K/mm3 Lymph # (Auto) (1.32-3.57) K/mm3 [place] # (Auto) (0.30-0.82) K/mm3 Eos # (Auto) (0.04-0.54) K/mm3 Baso # (Auto) (0.01-0.08) K/mm3 Manual Slide Review Sodium (136-145) mEq/L Potassium (3.5-5.1) mEq/L Chloride (98-107) mEq/L Carbon Dioxide (21-32) mEq/L Anion Gap (5-15) BUN (7-18) mg/dL Creatinine (0.7-1.3) mg/dL Est Cr Clr Drug Dosing mL/min Estimated GFR (MDRD) (>60) mL/min BUN/Creatinine Ratio (14-18) Glucose (74-106) mg/dL POC Glucose 95 103 104 (70-105) mg/dL Calcium (8.5-10.1) mg/dL Magnesium (1.8-2.4) mg/dl 06/06/18 06/06/18 06/06/18 Range/Units 05:00 05:00 05:08 WBC 9.42 H (4.23-9.07) K/mm3 RBC 4.07 L (4.63-6.08) M/mm3 Hgb 11.9 L (13.7-17.5) gm/L Hct 36.5 L (40.1-51.0) % MCV 89.7 (79.0-92.2) fl MCH 29.2 (25.7-32.2) pg MCHC 32.6 (32.2-35.5) g/dl RDW Std Deviation 45.4 H (35.1-43.9) fL Plt Count 512 H (163-337) K/mm3 MPV 10.7 (9.4-12.3) fl Neut % (Auto) 63.2 (34.0-67.9) % Lymph % (Auto) 17.3 L (21.8-53.1) % [place] % (Auto) 16.0 H (5.3-12.2) % Eos % (Auto) 1.2 (0.8-7.0) Baso % (Auto) 0.3 (0.1-1.2) % Neut # (Auto) 5.95 H (1.78-5.38) K/mm3 Lymph # (Auto) 1.63 (1.32-3.57) K/mm3 [place] # (Auto) 1.51 H (0.30-0.82) K/mm3 Eos # (Auto) 0.11 (0.04-0.54) K/mm3 Baso # (Auto) 0.03 (0.01-0.08) K/mm3 Manual Slide Review Abnormal smear Sodium 141 (136-145) mEq/L Potassium 3.7 (3.5-5.1) mEq/L Chloride 108 H (98-107) mEq/L Carbon Dioxide 22 (21-32) mEq/L Anion Gap 14.7 (5-15) BUN 6 L (7-18) mg/dL Creatinine 0.9 (0.7-1.3) mg/dL Est Cr Clr Drug Dosing 110.84 mL/min Estimated GFR (MDRD) > 60 (>60) mL/min BUN/Creatinine Ratio 6.7 L (14-18) Glucose 109 H (74-106) mg/dL POC Glucose 97 (70-105) mg/dL Calcium 8.6 (8.5-10.1) mg/dL Magnesium 1.6 L (1.8-2.4) mg/dl 06/06/18 Range/Units 11:56 WBC (4.23-9.07) K/mm3 RBC (4.63-6.08) M/mm3 Hgb (13.7-17.5) gm/L Hct (40.1-51.0) % MCV (79.0-92.2) fl MCH (25.7-32.2) pg MCHC (32.2-35.5) g/dl RDW Std Deviation (35.1-43.9) fL Plt Count (163-337) K/mm3 MPV (9.4-12.3) fl Neut % (Auto) (34.0-67.9) % Lymph % (Auto) (21.8-53.1) % [place] % (Auto) (5.3-12.2) % Eos % (Auto) (0.8-7.0) Baso % (Auto) (0.1-1.2) % Neut # (Auto) (1.78-5.38) K/mm3 Lymph # (Auto) (1.32-3.57) K/mm3 [place] # (Auto) (0.30-0.82) K/mm3 Eos # (Auto) (0.04-0.54) K/mm3 Baso # (Auto) (0.01-0.08) K/mm3 Manual Slide Review Sodium (136-145) mEq/L Potassium (3.5-5.1) mEq/L Chloride (98-107) mEq/L Carbon Dioxide (21-32) mEq/L Anion Gap (5-15) BUN (7-18) mg/dL Creatinine (0.7-1.3) mg/dL Est Cr Clr Drug Dosing mL/min Estimated GFR (MDRD) (>60) mL/min BUN/Creatinine Ratio (14-18) Glucose (74-106) mg/dL POC Glucose 111 H (70-105) mg/dL Calcium (8.5-10.1) mg/dL Magnesium (1.8-2.4) mg/dl [facility] Results Last 24 Hours: Microbiology 05/30/18 06:55 Aerobic Blood Culture - Final Blood - Venous NO GROWTH AFTER 7 DAYS Anaerobic Blood Culture - Final NO GROWTH AFTER 7 DAYS 05/30/18 07:05 Aerobic Blood Culture - Final Blood - Venous - Lab Draw NO GROWTH AFTER 7 DAYS Anaerobic Blood Culture - Final NO GROWTH AFTER 7 DAYS Med Orders - Current: Current Medications Acetaminophen (Tylenol) 650 mg RECTAL Q6H PRN PRN Reason: Pain/Fever/DRISCOLL Last Admin: 05/30/18 07:36 Dose: 650 mg Acetaminophen (Tylenol) 650 mg PO Q6H PRN PRN Reason: Pain/Fever/DRISCOLL Last Admin: 05/31/18 11:34 Dose: 650 mg Albuterol/Ipratropium (Duoneb 3.0-0.5 Mg/3 Ml) 3 ml NEB Q4H PRN PRN Reason: Shortness Of Breath/wheezing Chlordiazepoxide HCl (Librium) 75 mg PO TID BART Last Admin: 06/06/18 09:39 Dose: 75 mg Clonidine HCl (Catapres) 0.1 mg PO Q4H PRN PRN Reason: Agitation Last Admin: 06/06/18 04:57 Dose: 0.1 mg Diazepam (Valium) 10 mg IV Q12H PRN PRN Reason: Agitation Last Admin: 06/06/18 14:19 Dose: 10 mg Enoxaparin Sodium (Lovenox) 40 mg SUBCUT Q24H [facility] Last Admin: 06/05/18 20:01 Dose: 40 mg Famotidine (Pepcid) 20 mg PO BID [facility] Last Admin: 06/06/18 09:39 Dose: 20 mg Folic Acid (Folic Acid) 1 mg PO BEDTIME [facility] Last Admin: 06/05/18 20:02 Dose: 1 mg Guaifenesin (Mucinex) 600 mg PO BID [facility] Last Admin: 06/06/18 09:39 Dose: 600 mg Haloperidol Lactate (Haldol) 4 mg IVPUSH Q8H PRN PRN Reason: detox, severe withdrawal Last Admin: 06/06/18 13:57 Dose: 4 mg Hydralazine HCl (Apresoline) 20 mg IVPUSH Q4H PRN PRN Reason: Hypertension Last Admin: 06/03/18 16:50 Dose: 20 mg Hydromorphone HCl (Dilaudid) 2 mg IVPUSH Q6H PRN PRN Reason: Pain (severe 7-10) Last Admin: 06/01/18 21:36 Dose: 2 mg Potassium Chloride/Dextrose/Sod Cl (D5 Ns With 20 Meq Kcl) 1,000 mls @ 75 mls/ hr IV ASDIRECTED [facility] Last Admin: 06/06/18 02:54 Dose: 75 mls/hr Lorazepam 80 mg/ Sodium (Chloride) 80 mls @ 15 mls/hr IV TITRATE [facility] Last Infusion: 06/06/18 14:21 Dose: 5 mls/hr Magnesium Sulfate 2 gm/ Premix 50 mls @ 25 mls/hr IV ONETIME ONE Stop: 06/06/18 17:59 Lorazepam (Ativan) 2 mg IVPUSH Q4H PRN PRN Reason: Seizures Lorazepam (Ativan) 0 mg IVPUSH Q4H PRN; Protocol PRN Reason: Anxiety Last Admin: 06/06/18 14:11 Dose: 3 mg Metoprolol Tartrate (Lopressor) 5 mg IVPUSH Q4H PRN PRN Reason: Tachycardia Last Admin: 05/30/18 08:07 Dose: 5 mg Miscellaneous Information (Remove Patch) 1 ea TRDERM DAILY PRN PRN Reason: NICOTINE DEPENDENCE Last Admin: 05/27/18 18:31 Dose: 1 ea Miscellaneous Information (Remove Patch) 1 ea TRDERM Q7D [facility] Last Admin: 06/04/18 05:15 Dose: Not Given Nicotine (Habitrol) 21 mg TRDERM DAILY PRN PRN Reason: Nicotine Dependence Last Admin: 05/27/18 21:42 Dose: 21 mg Ondansetron HCl (Zofran) 4 mg IV Q6H PRN PRN Reason: Nausea/Vomiting Quetiapine Fumarate (Seroquel) 25 mg PO BID [facility] Last Admin: 06/06/18 09:39 Dose: 25 mg Thiamine HCl (Vitamin B-1) 100 mg PO DAILY [facility] Last Admin: 06/06/18 09:39 Dose: 100 mg Topiramate (Topamax) 25 mg PO BEDTIME [facility] Last Admin: 06/05/18 20:02 Dose: 25 mg Discontinued Medications Bumetanide (Bumex) 0.5 mg IVPUSH ONETIME ONE Stop: 05/31/18 08:16 Last Admin: 05/31/18 08:25 Dose: 0.5 mg Chlordiazepoxide HCl (Librium) 25 mg PO Q8H PRN PRN Reason: Withdrawal Symptoms Last Admin: 05/26/18 06:27 Dose: 25 mg Chlordiazepoxide HCl (Librium) 25 mg PO ONETIME ONE Stop: 05/25/18 22:01 Last Admin: 05/25/18 22:07 Dose: 25 mg Chlordiazepoxide HCl (Librium) 25 mg PO Q8H [facility] Last Admin: 05/28/18 05:02 Dose: 25 mg Chlordiazepoxide HCl (Librium) 25 mg PO Q8H PRN PRN Reason: Withdrawal Symptoms Chlordiazepoxide HCl (Librium) 25 mg PO Q6H PRN PRN Reason: Withdrawal Symptoms Last Admin: 05/28/18 14:59 Dose: 25 mg Chlordiazepoxide HCl (Librium) 50 mg PO Q6H PRN PRN Reason: Withdrawal Symptoms Last Admin: 05/29/18 08:26 Dose: 50 mg Chlordiazepoxide HCl (Librium) 25 mg PO TID [facility] Last Admin: 06/02/18 20:14 Dose: 25 mg Chlordiazepoxide HCl (Librium) 50 mg PO ONETIME ONE Stop: 06/02/18 20:47 Last Admin: 06/02/18 21:03 Dose: 50 mg Clonidine HCl (Catapres-Tts 3) 0.3 mg TRDERM Q7D [facility] Last Admin: 05/28/18 03:09 Dose: 0.3 mg Al Hydroxide/Mg Hydroxide 30 (ml/ Lidocaine HCl 15 ml) 0 ml PO ONETIME ONE Stop: 05/25/18 16:32 Last Admin: 05/25/18 16:46 Dose: 45 ml Diatrizoate Meglum/Diatrizoate Sod (Gastrografin 37%) 90 ml PO ONETIME ONE Stop: 05/25/18 18:05 Last Admin: 05/25/18 18:16 Dose: 90 ml Diazepam (Valium) 5 mg IV STAT ONE Stop: 06/01/18 16:35 Last Admin: 06/01/18 16:52 Dose: 5 mg Diazepam (Valium) 10 mg IV Q12H [facility] Last Admin: 06/05/18 15:35 Dose: Not Given Diphenhydramine HCl (Benadryl) 50 mg IVPUSH ONETIME ONE Stop: 05/25/18 21:44 Last Admin: 05/25/18 21:54 Dose: 50 mg Famotidine (Pepcid) 20 mg IVPUSH BID [facility] Last Admin: 06/01/18 09:38 Dose: 20 mg Folic Acid (Folic Acid) 1 mg PO DAILY [facility] Stop: 05/28/18 09:01 Last Admin: 05/28/18 08:00 Dose: 1 mg Haloperidol Lactate (Haldol) 2 mg IM Q4H PRN PRN Reason: Agitation Haloperidol Lactate (Haldol) 2 mg IM Q4H PRN PRN Reason: Withdrawal Symptoms Last Admin: 05/28/18 15:26 Dose: 2 mg Haloperidol Lactate (Haldol) 5 mg IM Q4H PRN PRN Reason: Withdrawal Symptoms Last Admin: 05/29/18 06:40 Dose: 5 mg Haloperidol Lactate (Haldol) 5 mg IM ONETIME ONE Stop: 05/29/18 09:26 Last Admin: 05/29/18 09:25 Dose: 5 mg Haloperidol Lactate (Haldol) 4 mg IVPUSH STAT STA Stop: 06/01/18 09:28 Last Admin: 06/01/18 09:37 Dose: 4 mg Haloperidol Lactate (Haldol) 4 mg IVPUSH STAT STA Stop: 06/01/18 12:51 Last Admin: 06/01/18 13:00 Dose: 4 mg Haloperidol Lactate (Haldol) 4 mg IVPUSH Q8H [facility] Last Admin: 06/05/18 15:34 Dose: Not Given Haloperidol Lactate (Haldol) 3 mg IVPUSH ONETIME ONE Stop: 06/05/18 12:10 Last Admin: 06/05/18 13:59 Dose: 3 mg Hydromorphone HCl (Dilaudid) 1 mg IVPUSH ONETIME STA Stop: 05/25/18 16:48 Last Admin: 05/25/18 17:01 Dose: 1 mg Hydromorphone HCl (Dilaudid) 0.5 mg IVPUSH ONETIME ONE Stop: 05/25/18 19:40 Last Admin: 05/25/18 20:12 Dose: Not Given Hydromorphone HCl (Dilaudid) 1 mg IVPUSH Q4H PRN PRN Reason: Pain (severe 7-10) Last Admin: 05/25/18 21:46 Dose: 1 mg Hydromorphone HCl (Dilaudid) 2 mg IVPUSH Q4H PRN PRN Reason: Pain (severe 7-10) Last Admin: 05/27/18 01:09 Dose: 2 mg Hydromorphone HCl (Dilaudid) 1 mg IVPUSH Q6H PRN PRN Reason: Pain (severe 7-10) Last Admin: 05/28/18 05:48 Dose: 1 mg Hydromorphone HCl (Dilaudid) 0.5 mg IVPUSH Q6H PRN PRN Reason: Pain (severe 7-10) Last Admin: 05/29/18 03:23 Dose: 0.5 mg Sodium Chloride (Normal Saline) 1,000 mls @ 999 mls/hr IV ASDIRECTED [facility] Last Admin: 05/25/18 17:03 Dose: 999 mls/hr Thiamine HCl 100 mg/ Sodium (Chloride) 51 mls @ 100 mls/hr IV ONETIME ONE Stop: 05/25/18 20:30 Last Admin: 05/25/18 20:58 Dose: 100 mls/hr Potassium Chloride/Dextrose/Sod Cl (D5 Ns With 20 Meq Kcl) 1,000 mls @ 175 mls/ hr IV ASDIRECTED [facility] Last Admin: 05/27/18 08:24 Dose: 175 mls/hr Potassium Chloride 10 meq/ (Premix) 100 mls @ 100 mls/hr IV Q1H [facility] Stop: 05/26/18 02:59 Last Admin: 05/26/18 03:11 Dose: 100 mls/hr Potassium Chloride/Dextrose/Sod Cl (D5 Ns With 20 Meq Kcl) 1,000 mls @ 100 mls/ hr IV ASDIRECTED [facility] Last Admin: 05/28/18 01:57 Dose: 100 mls/hr Magnesium Sulfate 4 gm/ Premix 100 mls @ 25 mls/hr IV Q4H [facility] Stop: 05/28/18 15:59 Last Admin: 05/28/18 11:41 Dose: 25 mls/hr Potassium Chloride/Sodium Chloride (Normal Saline With 20 Meq Kcl) 1,000 mls @ 125 mls/hr IV ASDIRECTED [facility] Last Admin: 05/30/18 07:04 Dose: 125 mls/hr Midazolam HCl 50 mg/ Sodium (Chloride) 50 mls @ 0.5 mls/hr IV TITRATE [facility]; Protocol Last Titration: 05/31/18 08:46 Dose: 0 mg/hr, 0 mls/hr Propofol (Diprivan 100 Ml) Confirm Administered Dose 100 mls @ as directed .ROUTE .STK-MED ONE Stop: 05/29/18 15:04 Last Admin: 05/29/18 16:22 Dose: Not Given Propofol (Diprivan 100 Ml) 100 mls @ 2.077 mls/hr IV TITRATE [facility]; Protocol Last Titration: 05/31/18 08:46 Dose: 0 mcg/kg/min, 0 mls/hr Piperacillin Sod/Tazobactam (Sod 4.5 gm/ Sodium Chloride) 100 mls @ 25 mls/hr IV Q8H [facility] Stop: 06/05/18 15:31 Last Admin: 06/05/18 15:38 Dose: 25 mls/hr Piperacillin Sod/Tazobactam (Sod 4.5 gm/ Sodium Chloride) 100 mls @ 200 mls/hr IV ONETIME ONE Stop: 05/30/18 07:59 Last Admin: 05/30/18 07:32 Dose: 200 mls/hr Magnesium Sulfate 4 gm/ Premix 50 mls @ 12.5 mls/hr IV ONETIME ONE Stop: 05/30/18 13:14 Last Admin: 05/30/18 10:08 Dose: 12.5 mls/hr Magnesium Sulfate 2 gm/ Premix 50 mls @ 25 mls/hr IV ONETIME ONE Stop: 05/30/18 15:59 Last Admin: 05/30/18 14:12 Dose: 25 mls/hr Levofloxacin/Dextrose 750 mg/ (Premix) 150 mls @ 100 mls/hr IV Q24H [facility] Last Admin: 06/01/18 10:50 Dose: Not Given Lorazepam 40 mg/ Sodium (Chloride) 40 mls @ 5 mls/hr IV ASDIRECTED [facility] Last Infusion: 06/03/18 17:17 Dose: 10 mls/hr Magnesium Sulfate 4 gm/ Premix 50 mls @ 150 mls/hr IV ONETIME ONE Stop: 06/01/18 13:11 Last Admin: 06/01/18 13:53 Dose: 150 mls/hr Magnesium Sulfate 4 gm/ Premix 50 mls @ 12.5 mls/hr IV ONETIME ONE Stop: 06/02/18 16:59 Last Admin: 06/02/18 13:09 Dose: 12.5 mls/hr Magnesium Sulfate 4 gm/ Premix 50 mls @ 12.5 mls/hr IV ONETIME ONE Stop: 06/04/18 11:29 Last Admin: 06/04/18 08:01 Dose: 12.5 mls/hr Magnesium Sulfate 4 gm/ Premix 50 mls @ 12.5 mls/hr IV ONETIME ONE Stop: 06/04/18 22:26 Last Admin: 06/04/18 19:35 Dose: 12.5 mls/hr Magnesium Sulfate 4 gm/ Premix 50 mls @ 12.5 mls/hr IV ONETIME ONE Stop: 06/05/18 14:03 Last Admin: 06/05/18 10:09 Dose: 12.5 mls/hr Magnesium Sulfate 4 gm/ Premix 50 mls @ 12.5 mls/hr IV ONETIME ONE Stop: 06/06/18 13:22 Last Admin: 06/06/18 10:27 Dose: 12.5 mls/hr Magnesium Sulfate (Magnesium Sulfate 4 Gm In Water 50 Ml) Confirm Administered Dose 50 mls @ as directed .ROUTE .STK-MED ONE Stop: 06/06/18 09:42 Last Admin: 06/06/18 10:02 Dose: Not Given Ibuprofen (Motrin) 600 mg PO Q6H PRN PRN Reason: Pain (moderate 4-6) Iopamidol (Isovue-370 (76%)) 100 ml IV ONETIME ONE Stop: 05/25/18 18:06 Last Admin: 05/25/18 18:18 Dose: 100 ml Ketamine HCl (Ketalar) 50 mg IV ONETIME ONE Stop: 05/29/18 15:24 Last Admin: 05/29/18 15:23 Dose: 50 mg Lorazepam (Ativan) 0 mg IV Q6H PRN; Protocol PRN Reason: Withdrawal Symptoms Last Admin: 05/27/18 23:16 Dose: 1 mg Lorazepam (Ativan) 1 - 3 mg IV ASDIRECTED PRN; Protocol PRN Reason: Withdrawal Symptoms Last Admin: 05/29/18 09:46 Dose: 3 mg Lorazepam (Ativan) Confirm Administered Dose 2 mg .ROUTE .STK-MED ONE Stop: 05/28/18 00:40 Last Admin: 05/28/18 00:57 Dose: Not Given Lorazepam (Ativan) 2 mg IVPUSH ONETIME ONE Stop: 05/28/18 00:41 Last Admin: 05/28/18 00:40 Dose: 2 mg Lorazepam (Ativan) 6 mg IVPUSH STAT STA Stop: 06/01/18 12:51 Last Admin: 06/01/18 13:01 Dose: 6 mg Lorazepam (Ativan) 5 mg IVPUSH ONETIME ONE Stop: 06/05/18 12:09 Last Admin: 06/05/18 14:03 Dose: 5 mg Magnesium Sulfate (Pharmacy To Dose - Magnesium Replacement) 0 dose .XX ASDIRECTED PRN PRN Reason: RX TO WATCH MAG Midazolam HCl (Versed 1 Mg/Ml) Confirm Administered Dose 2 mg .ROUTE .STK-MED ONE Stop: 05/29/18 09:28 Last Admin: 05/29/18 09:30 Dose: 2 mg Midazolam HCl (Versed 5 Mg/Ml) Confirm Administered Dose 25 mg .ROUTE .STK-MED ONE Stop: 05/30/18 19:24 Last Admin: 05/30/18 19:30 Dose: Not Given Miscellaneous Information (Remove Patch) 1 ea TRDERM ONETIME ONE Stop: 05/28/18 20:01 Last Admin: 05/28/18 20:35 Dose: 1 ea Miscellaneous Information (Remove Patch) 1 ea TRDERM ONETIME ONE Stop: 05/28/18 22:01 Last Admin: 05/28/18 21:33 Dose: 1 ea Miscellaneous Information (Remove Patch) 0 ea TRDERM ONETIME ONE Stop: 06/06/18 10:01 Last Admin: 06/06/18 09:40 Dose: 1 ea Modafinil (Provigil) 200 mg PO NOW STA Stop: 05/31/18 08:25 Last Admin: 05/31/18 08:39 Dose: 200 mg Multivitamins (Thera) 1 each PO DAILY [facility] Stop: 05/29/18 09:01 Last Admin: 05/29/18 08:26 Dose: 1 each Ondansetron HCl (Zofran Odt) 4 mg PO ONETIME ONE Stop: 05/25/18 16:34 Last Admin: 05/25/18 17:01 Dose: Not Given Ondansetron HCl (Zofran) 4 mg IVPUSH ONETIME ONE Stop: 05/25/18 16:48 Last Admin: 05/25/18 16:59 Dose: 4 mg Oxycodone HCl (Oxycodone) 5 mg PO Q4H PRN PRN Reason: Pain (moderate 4-6) Last Admin: 05/25/18 20:51 Dose: 5 mg Oxycodone HCl (Oxycontin) 20 mg PO Q12HR [facility] Last Admin: 05/28/18 08:01 Dose: Not Given Pantoprazole Sodium (Protonix) 40 mg PO ONETIME ONE Stop: 05/25/18 16:33 Last Admin: 05/25/18 17:05 Dose: Not Given Pantoprazole Sodium (Protonix Iv) 40 mg IVPUSH ONETIME ONE Stop: 05/25/18 16:48 Last Admin: 05/25/18 17:03 Dose: 40 mg Pantoprazole Sodium (Protonix Iv) 40 mg IV Q12HR [facility] Pantoprazole Sodium (Protonix Iv) 40 mg IV Q12HR [facility] Stop: 05/27/18 21:01 Last Admin: 05/27/18 21:40 Dose: 40 mg Pantoprazole Sodium (Protonix) 40 mg PO BID [facility] Last Admin: 05/29/18 08:27 Dose: 40 mg Phenylephrine HCl (Mario-Synephrine 0.5% Regular Nasal [place]) 0 ml NASBOTH ONETIME ONE Stop: 06/05/18 12:11 Last Admin: 06/05/18 14:06 Dose: 2 spray Potassium Chloride (Pharmacy To Dose - Potassium Replacement) 0 dose .XX ASDIRECTED PRN PRN Reason: RX TO WATCH K Quetiapine Fumarate (Seroquel) 50 mg PO BEDTIME [facility] Last Admin: 05/28/18 20:33 Dose: 50 mg Quetiapine Fumarate (Seroquel) 50 mg PO BEDTIME [facility] Rocuronium [place] (Zemuron) 60 mg IVPUSH ONETIME ONE Stop: 05/29/18 15:26 Last Admin: 05/29/18 15:25 Dose: 60 mg Scopolamine (Transderm-Scop) 1.5 mg TRDERM Q72H ONE Stop: 05/25/18 20:01 Last Admin: 05/25/18 20:49 Dose: 1.5 mg Scopolamine (Transderm-Scop) 1.5 mg TOP ONETIME ONE Stop: 06/03/18 09:57 Last Admin: 06/03/18 10:17 Dose: 1.5 mg Topiramate (Topamax) 25 mg PO BID [facility] Last Admin: 05/29/18 08:25 Dose: 25 mg Topiramate (Topamax) 25 mg PO BID [facility] - Exam Quality Assessment: DVT Prophylaxis General: No Acute Distress, Sedated HEENT: Pupils Equal, Pupils Reactive, EOMI Neck: Trachea Midline, No JVD Lungs: Normal Respiratory Effort Cardiovascular: Regular Rate, Regular Rhythm GI/Abdominal Exam: Normal Bowel Sounds, Soft, Non-Tender, No Organomegaly, No Distention (Male) Exam: Deferred Back Exam: Normal Inspection Extremities: Normal Inspection, Non-Tender, Normal Capillary Refill Skin: Warm Neurological: No New Focal Deficit Psy/Mental Status: Agitated, Withdrawal Symptoms - Problem List Review Problem List Initiated/Reviewed/Updated: Yes - My Orders Last 24 Hours: My Active Orders 06/05/18 19:00 Enoxaparin [Lovenox] 40 mg SUBCUT Q24H 06/05/18 19:02 Haloperidol Lactate [Haldol] 4 mg IVPUSH Q8H PRN diazePAM [Valium] 10 mg IV Q12H PRN 06/05/18 22:59 Communication Order [RC] ASDIRECTED 06/05/18 Dinner Tube Feeding Adult Diet [DIET] 06/06/18 10:11 Communication Order [RC] ASDIRECTED 06/06/18 16:00 Magnesium Sulfate/Water [Magnesium Sulfate 2 GM in Water 50 ML] 2 gm Premix Bag 1 bag IV ONETIME 06/07/18 05:00 BMP [BASIC METABOLIC PANEL,BMP] [CHEM] DAILY CBC WITH AUTO DIFF [HEME] DAILY CRP [C-REACTIVE PROTEIN] [CHEM] DAILY MAGNESIUM [CHEM] DAILY 06/08/18 05:00 CRP [C-REACTIVE PROTEIN] [CHEM] DAILY 06/09/18 05:00 CRP [C-REACTIVE PROTEIN] [CHEM] DAILY 06/10/18 05:00 CRP [C-REACTIVE PROTEIN] [CHEM] DAILY - Plan Plan:: Assessment/Plan: Acute: POST EXTUBATION DAY 3 HALDOL/ATIVAN USE FOR ACUTE ETOH WITHDRAWAL/CHRONIC DEPENDENCE WITH SEVERE AGITATION, UNABLE TO REDIRECT. Original Note: Delirium Tremens on Mechanical Ventilator - Severe ETOH Withdrawal - RASS -4; advance to -5 - Plan to hopefully extubate after 48hrs - Continue IV Zosyn and will add Levaquin for aspiration coverage (had a lot for oral secretion during intubation) - Continue IV Propofol and Midazolam drip per paper [facility] Protocol; if we run out of versed will augment with Ativan drip - CXR shows stable placement of NGT and Tip of ETT; previously had increased density within the left lung base; repeat CXR. ETOH Withdrawal Symptoms w/ Aggression and Combativeness - Carries a hx/o Chronic ETOH Use - Alcoholism is now causing serious health issues - VISHNU is 0.38 - CIWA score 13->20 - Thiamine, Folic Acid, and MVI - Midazolam drip per Protocol (see Manual Provided) - SAC; refused services; we will try again once alert and awake - Hold Tele-psych consult; he is not appropriate at this time - Advised to quit drinking - Discussed option for possible intubation if his aggression/combativeness persists; mom consented Hyponatremia, resolved - NA 127-->132-->134 2/2 D5W infusion - No episode of seizures observed - Restart D5WNS 0.9% with 20mEq of IVF at 50 cc/hr for glucose maintenance Nicotine Dependence - Smokes Cigarettes: 2ppd - Nicotine patch daily Hypomagnesemia, aggresively replace - Mg 1.6-->1.6--> 1.2 - 2/2 NPO status - Replete and monitor Resolved: S/p Hypokalemia - K 3.1-->4.3 - 2/2 GI Loss - Replete and monitor S/p Severe Pancreatitis - Carries a hx/o Chronic ETOH Use/Dependence - 2/2 ETOH Pancreatitis; drinks heavily - VISHNU level is 0.38 - Lipase is 5831-->3801-->1115-->548-->407 - CT scan report reads fairly severe pancreatitis with diffuse surrounding inflammatory change, mild pancreatic edema as well as fluid around the pancreas extending into the paracolic gutter and into the dependent portion of the pelvis. - MIKEY' Criteria: 1 = LHD level of 512-1% predicted Mortality; BISAP score is 0 (Patients with a BISAP Score of 0 had <1% risk of mortality) - Continue IV fluids, pain control, anti-emesis and electrolytes supplement - May start clear liquid diet and advance to soft and regular (nonfatty/ nongreasy meal) as tolerated - Excellent urine output S/p Transaminitis - AST/ALT= 2:1; 138:66-->91:48-->65:37 - 2/2 ETOH Abuse - IV fluids and will avoid acetaminophen Nutrition--TF started after NGT placed. Jevity 1.2 40 cc/hr advance to 80 cc/hr , calories 2300 chey, protein 106 gm. Chronic: HTN ETOH Pancreatitis Alcoholism Depression Fatty Liver - 2/2 Chronic ETOH Use - CT Scan report reads prominent fatty infiltration within the liver; seen on CT scan 10/29/2016 as well - NPO for now except ice chips, sips fo water and oral meds - Advised to quit drinking Substance Abuse: Oxycodone, Marijuana, Amphetamine and Meth Plan: He looks comfortable this morning Routine AM Labs Continue CIWA Protocol GI/DVT PPx: PPI/SCDs SW/CM for d/c planning Additional orders as above Code status:1 LOS anticipate > 96hrs due patient is on mechanical ventilator; tolerating extubation. Advance diet as tolerated. Psych/SA consults, TBD. LOS>96 hours with severe ETOH withdrawal
[2018-06-06] MEDS ORDERED: Magnesium Sulfate/Water 2 GM in Premix Bag 1 BAG IV ONE (16:00)
[2018-06-06] MEDS: Topiramate 25 MG Tab PO SCH (20:09)
[2018-06-06] MEDS: Folic Acid 1 MG Tab PO SCH (20:10)
[2018-06-06] MEDS: Enoxaparin 40 MG/0.4 ML Syringe SUBCUT SCH (20:10)
[2018-06-07] MEDS: Acetaminophen 325 MG Tab PO PRN (00:38)
[2018-06-07] MEDS: LORazepam 80 MG in Sodium Chloride 0.9% 40 ML IV SCH ×2 (02:57→21:59)
[2018-06-07] MEDS: Dextrose 5%-0.9% NaCl with KCl 1,000 ML IV SCH ×2 (05:46→19:11)
[2018-06-07] MEDS: guaiFENesin 600 MG Tab.ER PO SCH ×2 (08:16→20:06)
[2018-06-07] MEDS: Famotidine 20 MG Tab PO SCH ×2 (08:16→20:06)
[2018-06-07] MEDS: Thiamine 100 MG Tab PO SCH (08:16)
[2018-06-07] MEDS: QUEtiapine 25 MG Tab PO SCH ×2 (08:16→20:05)
[2018-06-07] MEDS: chlordiazePOXIDE 25 MG Cap PO SCH ×3 (08:16→20:06)
[2018-06-07] MEDS: Nicotine 21 MG/24 Hr Patch TRDERM SCH (08:41)
[2018-06-07] MEDS: LORazepam 2 MG/ML SDV IVPUSH PRN (10:33)
[2018-06-07] MEDS: Haloperidol Lactate 5 MG/ML SDV IVPUSH PRN (11:10)
[2018-06-07] MEDS ORDERED: Haloperidol Lactate 5 MG/ML SDV IVPUSH PRN (11:21)
[2018-06-07] MEDS ORDERED: diazePAM 5 MG/ML-2ml Syringe IV ONE (11:22)
[2018-06-07] MEDS ORDERED: Magnesium Sulfate/Water 4 GM in Premix Bag 1 BAG IV ONE ×2 (13:00→18:00)
--- NOTE | 2018-06-07 16:27 | PCM.PN ---
- General Info Date of Service: 06/07/18 Subjective Update: Increase activity as tolerated. Basal rate for Lasix gtt, 3-4 mg/hr with IVP of Ativan/Valium or Haldol. He participated with PT/OT today. Functional Status: Reports: Tolerating Diet, Ambulating, Urinating - Review of Systems General: Reports: Weakness HEENT: Reports: No Symptoms Pulmonary: Reports: No Symptoms Cardiovascular: Reports: No Symptoms Gastrointestinal: Reports: No Symptoms Genitourinary: Reports: No Symptoms Musculoskeletal: Reports: No Symptoms Skin: Reports: No Symptoms Neurological: Reports: Confusion Psychiatric: Reports: Confusion - Patient Data Vitals - Most Recent: Last Vital Signs Temp 36.4 C 06/07/18 15:59 Pulse 99 06/07/18 15:59 Resp 18 06/07/18 15:59 BP 115/81 06/07/18 15:59 Pulse Ox 97 06/07/18 15:59 Weight - Most Recent: 70.035 kg I&O - Last 24 Hours: Intake & Output 06/07/18 06/07/18 06/07/18 06:59 14:59 22:59 Intake Total 3350 174 7564 Output Total 1000 1850 200 Balance 896 -1120 2069 Lab Results Last 24 Hours: Laboratory Results - last 24 hr 06/06/18 06/07/18 06/07/18 Range/Units 17:49 00:54 05:15 WBC 9.94 H (4.23-9.07) K/mm3 RBC 4.36 L (4.63-6.08) M/mm3 Hgb 12.9 L (13.7-17.5) gm/L Hct 39.3 L (40.1-51.0) % MCV 90.1 (79.0-92.2) fl MCH 29.6 (25.7-32.2) pg MCHC 32.8 (32.2-35.5) g/dl RDW Std Deviation 46.1 H (35.1-43.9) fL Plt Count 472 H (163-337) K/mm3 MPV 10.8 (9.4-12.3) fl Neut % (Auto) 64.0 (34.0-67.9) % Lymph % (Auto) 18.4 L (21.8-53.1) % [place] % (Auto) 14.9 H (5.3-12.2) % Eos % (Auto) 1.3 (0.8-7.0) Baso % (Auto) 0.1 (0.1-1.2) % Neut # (Auto) 6.36 H (1.78-5.38) K/mm3 Lymph # (Auto) 1.83 (1.32-3.57) K/mm3 [place] # (Auto) 1.48 H (0.30-0.82) K/mm3 Eos # (Auto) 0.13 (0.04-0.54) K/mm3 Baso # (Auto) 0.01 (0.01-0.08) K/mm3 Manual Slide Review Abnormal smear Sodium (136-145) mEq/L Potassium (3.5-5.1) mEq/L Chloride (98-107) mEq/L Carbon Dioxide (21-32) mEq/L Anion Gap (5-15) BUN (7-18) mg/dL Creatinine (0.7-1.3) mg/dL Est Cr Clr Drug Dosing mL/min Estimated GFR (MDRD) (>60) mL/min BUN/Creatinine Ratio (14-18) Glucose (74-106) mg/dL POC Glucose 121 H 105 (70-105) mg/dL Calcium (8.5-10.1) mg/dL Magnesium (1.8-2.4) mg/dl C-Reactive Protein (<1.0) mg/dL 06/07/18 06/07/18 Range/Units 05:18 05:54 WBC (4.23-9.07) K/mm3 RBC (4.63-6.08) M/mm3 Hgb (13.7-17.5) gm/L Hct (40.1-51.0) % MCV (79.0-92.2) fl MCH (25.7-32.2) pg MCHC (32.2-35.5) g/dl RDW Std Deviation (35.1-43.9) fL Plt Count (163-337) K/mm3 MPV (9.4-12.3) fl Neut % (Auto) (34.0-67.9) % Lymph % (Auto) (21.8-53.1) % [place] % (Auto) (5.3-12.2) % Eos % (Auto) (0.8-7.0) Baso % (Auto) (0.1-1.2) % Neut # (Auto) (1.78-5.38) K/mm3 Lymph # (Auto) (1.32-3.57) K/mm3 [place] # (Auto) (0.30-0.82) K/mm3 Eos # (Auto) (0.04-0.54) K/mm3 Baso # (Auto) (0.01-0.08) K/mm3 Manual Slide Review Sodium 138 (136-145) mEq/L Potassium 4.3 (3.5-5.1) mEq/L Chloride 106 (98-107) mEq/L Carbon Dioxide 22 (21-32) mEq/L Anion Gap 14.3 (5-15) BUN 9 (7-18) mg/dL Creatinine 0.8 (0.7-1.3) mg/dL Est Cr Clr Drug Dosing 127.67 mL/min Estimated GFR (MDRD) > 60 (>60) mL/min BUN/Creatinine Ratio 11.3 L (14-18) Glucose 102 (74-106) mg/dL POC Glucose 108 H (70-105) mg/dL Calcium 8.9 (8.5-10.1) mg/dL Magnesium 1.6 L (1.8-2.4) mg/dl C-Reactive Protein 2.8 H* (<1.0) mg/dL Med Orders - Current: Current Medications Acetaminophen (Tylenol) 650 mg RECTAL Q6H PRN PRN Reason: Pain/Fever/DRISCOLL Last Admin: 05/30/18 07:36 Dose: 650 mg Acetaminophen (Tylenol) 650 mg PO Q6H PRN PRN Reason: Pain/Fever/DRISCOLL Last Admin: 06/07/18 00:38 Dose: 650 mg Albuterol/Ipratropium (Duoneb 3.0-0.5 Mg/3 Ml) 3 ml NEB Q4H PRN PRN Reason: Shortness Of Breath/wheezing Chlordiazepoxide HCl (Librium) 75 mg PO TID [facility] Last Admin: 06/07/18 15:48 Dose: 75 mg Clonidine HCl (Catapres) 0.1 mg PO Q4H PRN PRN Reason: Agitation Last Admin: 06/06/18 04:57 Dose: 0.1 mg Diazepam (Valium) 10 mg IV Q12H PRN PRN Reason: Agitation Last Admin: 06/06/18 14:19 Dose: 10 mg Diazepam (Valium) 7.5 mg IV DAILY [facility] Enoxaparin Sodium (Lovenox) 40 mg SUBCUT Q24H [facility] Last Admin: 06/06/18 20:10 Dose: 40 mg Famotidine (Pepcid) 20 mg PO BID [facility] Last Admin: 06/07/18 08:16 Dose: 20 mg Folic Acid (Folic Acid) 1 mg PO BEDTIME [facility] Last Admin: 06/06/18 20:10 Dose: 1 mg Guaifenesin (Mucinex) 600 mg PO BID [facility] Last Admin: 06/07/18 08:16 Dose: 600 mg Haloperidol Lactate (Haldol) 5 mg IVPUSH Q8H PRN PRN Reason: Agitation Haloperidol Lactate (Haldol) 4 mg IVPUSH DAILY [facility] Hydralazine HCl (Apresoline) 20 mg IVPUSH Q4H PRN PRN Reason: Hypertension Last Admin: 06/03/18 16:50 Dose: 20 mg Hydromorphone HCl (Dilaudid) 2 mg IVPUSH Q6H PRN PRN Reason: Pain (severe 7-10) Last Admin: 06/01/18 21:36 Dose: 2 mg Potassium Chloride/Dextrose/Sod Cl (D5 Ns With 20 Meq Kcl) 1,000 mls @ 75 mls/ hr IV ASDIRECTED [facility] Last Admin: 06/07/18 05:46 Dose: 75 mls/hr Lorazepam 80 mg/ Sodium (Chloride) 80 mls @ 15 mls/hr IV TITRATE [facility] Last Infusion: 06/07/18 06:44 Dose: 3 mls/hr Magnesium Sulfate 4 gm/ Premix 50 mls @ 12.5 mls/hr IV ONETIME ONE Stop: 06/07/18 16:59 Last Admin: 06/07/18 13:06 Dose: 12.5 mls/hr Magnesium Sulfate 4 gm/ Premix 50 mls @ 12.5 mls/hr IV ONETIME ONE Stop: 06/07/18 21:59 Lorazepam (Ativan) 2 mg IVPUSH Q4H PRN PRN Reason: Seizures Lorazepam (Ativan) 0 mg IVPUSH Q4H PRN; Protocol PRN Reason: Anxiety Last Admin: 06/07/18 10:33 Dose: 3 mg Metoprolol Tartrate (Lopressor) 5 mg IVPUSH Q4H PRN PRN Reason: Tachycardia Last Admin: 05/30/18 08:07 Dose: 5 mg Miscellaneous Information (Remove Patch) 1 ea TRDERM Q7D [facility] Last Admin: 06/04/18 05:15 Dose: Not Given Miscellaneous Information (Remove Patch) 0 ea TRDERM DAILY [facility] Nicotine (Habitrol) 21 mg TRDERM DAILY [facility] Last Admin: 06/07/18 08:41 Dose: 21 mg Ondansetron HCl (Zofran) 4 mg IV Q6H PRN PRN Reason: Nausea/Vomiting Quetiapine Fumarate (Seroquel) 50 mg PO BID [facility] Last Admin: 06/07/18 08:16 Dose: 50 mg Thiamine HCl (Vitamin B-1) 100 mg PO DAILY [facility] Last Admin: 06/07/18 08:16 Dose: 100 mg Topiramate (Topamax) 25 mg PO BEDTIME [facility] Last Admin: 06/06/18 20:09 Dose: 25 mg Discontinued Medications Bumetanide (Bumex) 0.5 mg IVPUSH ONETIME ONE Stop: 05/31/18 08:16 Last Admin: 05/31/18 08:25 Dose: 0.5 mg Chlordiazepoxide HCl (Librium) 25 mg PO Q8H PRN PRN Reason: Withdrawal Symptoms Last Admin: 05/26/18 06:27 Dose: 25 mg Chlordiazepoxide HCl (Librium) 25 mg PO ONETIME ONE Stop: 05/25/18 22:01 Last Admin: 05/25/18 22:07 Dose: 25 mg Chlordiazepoxide HCl (Librium) 25 mg PO Q8H [facility] Last Admin: 05/28/18 05:02 Dose: 25 mg Chlordiazepoxide HCl (Librium) 25 mg PO Q8H PRN PRN Reason: Withdrawal Symptoms Chlordiazepoxide HCl (Librium) 25 mg PO Q6H PRN PRN Reason: Withdrawal Symptoms Last Admin: 05/28/18 14:59 Dose: 25 mg Chlordiazepoxide HCl (Librium) 50 mg PO Q6H PRN PRN Reason: Withdrawal Symptoms Last Admin: 05/29/18 08:26 Dose: 50 mg Chlordiazepoxide HCl (Librium) 25 mg PO TID [facility] Last Admin: 06/02/18 20:14 Dose: 25 mg Chlordiazepoxide HCl (Librium) 50 mg PO ONETIME ONE Stop: 06/02/18 20:47 Last Admin: 06/02/18 21:03 Dose: 50 mg Clonidine HCl (Catapres-Tts 3) 0.3 mg TRDERM Q7D [facility] Last Admin: 05/28/18 03:09 Dose: 0.3 mg Al Hydroxide/Mg Hydroxide 30 (ml/ Lidocaine HCl 15 ml) 0 ml PO ONETIME ONE Stop: 05/25/18 16:32 Last Admin: 05/25/18 16:46 Dose: 45 ml Diatrizoate Meglum/Diatrizoate Sod (Gastrografin 37%) 90 ml PO ONETIME ONE Stop: 05/25/18 18:05 Last Admin: 05/25/18 18:16 Dose: 90 ml Diazepam (Valium) 5 mg IV STAT ONE Stop: 06/01/18 16:35 Last Admin: 06/01/18 16:52 Dose: 5 mg Diazepam (Valium) 10 mg IV Q12H [facility] Last Admin: 06/05/18 15:35 Dose: Not Given Diazepam (Valium) 5 mg IV ONETIME ONE Stop: 06/07/18 11:23 Last Admin: 06/07/18 11:30 Dose: 5 mg Diphenhydramine HCl (Benadryl) 50 mg IVPUSH ONETIME ONE Stop: 05/25/18 21:44 Last Admin: 05/25/18 21:54 Dose: 50 mg Famotidine (Pepcid) 20 mg IVPUSH BID [facility] Last Admin: 06/01/18 09:38 Dose: 20 mg Folic Acid (Folic Acid) 1 mg PO DAILY [facility] Stop: 05/28/18 09:01 Last Admin: 05/28/18 08:00 Dose: 1 mg Haloperidol Lactate (Haldol) 2 mg IM Q4H PRN PRN Reason: Agitation Haloperidol Lactate (Haldol) 2 mg IM Q4H PRN PRN Reason: Withdrawal Symptoms Last Admin: 05/28/18 15:26 Dose: 2 mg Haloperidol Lactate (Haldol) 5 mg IM Q4H PRN PRN Reason: Withdrawal Symptoms Last Admin: 05/29/18 06:40 Dose: 5 mg Haloperidol Lactate (Haldol) 5 mg IM ONETIME ONE Stop: 05/29/18 09:26 Last Admin: 05/29/18 09:25 Dose: 5 mg Haloperidol Lactate (Haldol) 4 mg IVPUSH STAT STA Stop: 06/01/18 09:28 Last Admin: 06/01/18 09:37 Dose: 4 mg Haloperidol Lactate (Haldol) 4 mg IVPUSH STAT STA Stop: 06/01/18 12:51 Last Admin: 06/01/18 13:00 Dose: 4 mg Haloperidol Lactate (Haldol) 4 mg IVPUSH Q8H [facility] Last Admin: 06/05/18 15:34 Dose: Not Given Haloperidol Lactate (Haldol) 3 mg IVPUSH ONETIME ONE Stop: 06/05/18 12:10 Last Admin: 06/05/18 13:59 Dose: 3 mg Haloperidol Lactate (Haldol) 4 mg IVPUSH Q8H PRN PRN Reason: detox, severe withdrawal Last Admin: 06/07/18 11:10 Dose: 4 mg Hydromorphone HCl (Dilaudid) 1 mg IVPUSH ONETIME [facility] Stop: 05/25/18 16:48 Last Admin: 05/25/18 17:01 Dose: 1 mg Hydromorphone HCl (Dilaudid) 0.5 mg IVPUSH ONETIME ONE Stop: 05/25/18 19:40 Last Admin: 05/25/18 20:12 Dose: Not Given Hydromorphone HCl (Dilaudid) 1 mg IVPUSH Q4H PRN PRN Reason: Pain (severe 7-10) Last Admin: 05/25/18 21:46 Dose: 1 mg Hydromorphone HCl (Dilaudid) 2 mg IVPUSH Q4H PRN PRN Reason: Pain (severe 7-10) Last Admin: 05/27/18 01:09 Dose: 2 mg Hydromorphone HCl (Dilaudid) 1 mg IVPUSH Q6H PRN PRN Reason: Pain (severe 7-10) Last Admin: 05/28/18 05:48 Dose: 1 mg Hydromorphone HCl (Dilaudid) 0.5 mg IVPUSH Q6H PRN PRN Reason: Pain (severe 7-10) Last Admin: 05/29/18 03:23 Dose: 0.5 mg Sodium Chloride (Normal Saline) 1,000 mls @ 999 mls/hr IV ASDIRECTED [facility] Last Admin: 05/25/18 17:03 Dose: 999 mls/hr Thiamine HCl 100 mg/ Sodium (Chloride) 51 mls @ 100 mls/hr IV ONETIME ONE Stop: 05/25/18 20:30 Last Admin: 05/25/18 20:58 Dose: 100 mls/hr Potassium Chloride/Dextrose/Sod Cl (D5 Ns With 20 Meq Kcl) 1,000 mls @ 175 mls/ hr IV ASDIRECTED [facility] Last Admin: 05/27/18 08:24 Dose: 175 mls/hr Potassium Chloride 10 meq/ (Premix) 100 mls @ 100 mls/hr IV Q1H [facility] Stop: 05/26/18 02:59 Last Admin: 05/26/18 03:11 Dose: 100 mls/hr Potassium Chloride/Dextrose/Sod Cl (D5 Ns With 20 Meq Kcl) 1,000 mls @ 100 mls/ hr IV ASDIRECTED [facility] Last Admin: 05/28/18 01:57 Dose: 100 mls/hr Magnesium Sulfate 4 gm/ Premix 100 mls @ 25 mls/hr IV Q4H [facility] Stop: 05/28/18 15:59 Last Admin: 05/28/18 11:41 Dose: 25 mls/hr Potassium Chloride/Sodium Chloride (Normal Saline With 20 Meq Kcl) 1,000 mls @ 125 mls/hr IV ASDIRECTED [facility] Last Admin: 05/30/18 07:04 Dose: 125 mls/hr Midazolam HCl 50 mg/ Sodium (Chloride) 50 mls @ 0.5 mls/hr IV TITRATE [facility]; Protocol Last Titration: 05/31/18 08:46 Dose: 0 mg/hr, 0 mls/hr Propofol (Diprivan 100 Ml) Confirm Administered Dose 100 mls @ as directed .ROUTE .STK-MED ONE Stop: 05/29/18 15:04 Last Admin: 05/29/18 16:22 Dose: Not Given Propofol (Diprivan 100 Ml) 100 mls @ 2.077 mls/hr IV TITRATE [facility]; Protocol Last Titration: 05/31/18 08:46 Dose: 0 mcg/kg/min, 0 mls/hr Piperacillin Sod/Tazobactam (Sod 4.5 gm/ Sodium Chloride) 100 mls @ 25 mls/hr IV Q8H [facility] Stop: 06/05/18 15:31 Last Admin: 06/05/18 15:38 Dose: 25 mls/hr Piperacillin Sod/Tazobactam (Sod 4.5 gm/ Sodium Chloride) 100 mls @ 200 mls/hr IV ONETIME ONE Stop: 05/30/18 07:59 Last Admin: 05/30/18 07:32 Dose: 200 mls/hr Magnesium Sulfate 4 gm/ Premix 50 mls @ 12.5 mls/hr IV ONETIME ONE Stop: 05/30/18 13:14 Last Admin: 05/30/18 10:08 Dose: 12.5 mls/hr Magnesium Sulfate 2 gm/ Premix 50 mls @ 25 mls/hr IV ONETIME ONE Stop: 05/30/18 15:59 Last Admin: 05/30/18 14:12 Dose: 25 mls/hr Levofloxacin/Dextrose 750 mg/ (Premix) 150 mls @ 100 mls/hr IV Q24H [facility] Last Admin: 06/01/18 10:50 Dose: Not Given Lorazepam 40 mg/ Sodium (Chloride) 40 mls @ 5 mls/hr IV ASDIRECTED [facility] Last Infusion: 06/03/18 17:17 Dose: 10 mls/hr Magnesium Sulfate 4 gm/ Premix 50 mls @ 150 mls/hr IV ONETIME ONE Stop: 06/01/18 13:11 Last Admin: 06/01/18 13:53 Dose: 150 mls/hr Magnesium Sulfate 4 gm/ Premix 50 mls @ 12.5 mls/hr IV ONETIME ONE Stop: 06/02/18 16:59 Last Admin: 06/02/18 13:09 Dose: 12.5 mls/hr Magnesium Sulfate 4 gm/ Premix 50 mls @ 12.5 mls/hr IV ONETIME ONE Stop: 06/04/18 11:29 Last Admin: 06/04/18 08:01 Dose: 12.5 mls/hr Magnesium Sulfate 4 gm/ Premix 50 mls @ 12.5 mls/hr IV ONETIME ONE Stop: 06/04/18 22:26 Last Admin: 06/04/18 19:35 Dose: 12.5 mls/hr Magnesium Sulfate 4 gm/ Premix 50 mls @ 12.5 mls/hr IV ONETIME ONE Stop: 06/05/18 14:03 Last Admin: 06/05/18 10:09 Dose: 12.5 mls/hr Magnesium Sulfate 4 gm/ Premix 50 mls @ 12.5 mls/hr IV ONETIME ONE Stop: 06/06/18 13:22 Last Admin: 06/06/18 10:27 Dose: 12.5 mls/hr Magnesium Sulfate (Magnesium Sulfate 4 Gm In Water 50 Ml) Confirm Administered Dose 50 mls @ as directed .ROUTE .STK-MED ONE Stop: 06/06/18 09:42 Last Admin: 06/06/18 10:02 Dose: Not Given Magnesium Sulfate 2 gm/ Premix 50 mls @ 25 mls/hr IV ONETIME ONE Stop: 06/06/18 17:59 Last Admin: 06/06/18 16:17 Dose: 25 mls/hr Ibuprofen (Motrin) 600 mg PO Q6H PRN PRN Reason: Pain (moderate 4-6) Iopamidol (Isovue-370 (76%)) 100 ml IV ONETIME ONE Stop: 05/25/18 18:06 Last Admin: 05/25/18 18:18 Dose: 100 ml Ketamine HCl (Ketalar) 50 mg IV ONETIME ONE Stop: 05/29/18 15:24 Last Admin: 05/29/18 15:23 Dose: 50 mg Lorazepam (Ativan) 0 mg IV Q6H PRN; Protocol PRN Reason: Withdrawal Symptoms Last Admin: 05/27/18 23:16 Dose: 1 mg Lorazepam (Ativan) 1 - 3 mg IV ASDIRECTED PRN; Protocol PRN Reason: Withdrawal Symptoms Last Admin: 05/29/18 09:46 Dose: 3 mg Lorazepam (Ativan) Confirm Administered Dose 2 mg .ROUTE .STK-MED ONE Stop: 05/28/18 00:40 Last Admin: 05/28/18 00:57 Dose: Not Given Lorazepam (Ativan) 2 mg IVPUSH ONETIME ONE Stop: 05/28/18 00:41 Last Admin: 05/28/18 00:40 Dose: 2 mg Lorazepam (Ativan) 6 mg IVPUSH STAT STA Stop: 06/01/18 12:51 Last Admin: 06/01/18 13:01 Dose: 6 mg Lorazepam (Ativan) 5 mg IVPUSH ONETIME ONE Stop: 06/05/18 12:09 Last Admin: 06/05/18 14:03 Dose: 5 mg Magnesium Sulfate (Pharmacy To Dose - Magnesium Replacement) 0 dose .XX ASDIRECTED PRN PRN Reason: RX TO WATCH MAG Midazolam HCl (Versed 1 Mg/Ml) Confirm Administered Dose 2 mg .ROUTE .STK-MED ONE Stop: 05/29/18 09:28 Last Admin: 05/29/18 09:30 Dose: 2 mg Midazolam HCl (Versed 5 Mg/Ml) Confirm Administered Dose 25 mg .ROUTE .STK-MED ONE Stop: 05/30/18 19:24 Last Admin: 05/30/18 19:30 Dose: Not Given Miscellaneous Information (Remove Patch) 1 ea TRDERM DAILY PRN PRN Reason: NICOTINE DEPENDENCE Last Admin: 05/27/18 18:31 Dose: 1 ea Miscellaneous Information (Remove Patch) 1 ea TRDERM ONETIME ONE Stop: 05/28/18 20:01 Last Admin: 05/28/18 20:35 Dose: 1 ea Miscellaneous Information (Remove Patch) 1 ea TRDERM ONETIME ONE Stop: 05/28/18 22:01 Last Admin: 05/28/18 21:33 Dose: 1 ea Miscellaneous Information (Remove Patch) 0 ea TRDERM ONETIME ONE Stop: 06/06/18 10:01 Last Admin: 06/06/18 09:40 Dose: 1 ea Modafinil (Provigil) 200 mg PO NOW STA Stop: 05/31/18 08:25 Last Admin: 05/31/18 08:39 Dose: 200 mg Multivitamins (Thera) 1 each PO DAILY [facility] Stop: 05/29/18 09:01 Last Admin: 05/29/18 08:26 Dose: 1 each Nicotine (Habitrol) 21 mg TRDERM DAILY PRN PRN Reason: Nicotine Dependence Last Admin: 05/27/18 21:42 Dose: 21 mg Ondansetron HCl (Zofran Odt) 4 mg PO ONETIME ONE Stop: 05/25/18 16:34 Last Admin: 05/25/18 17:01 Dose: Not Given Ondansetron HCl (Zofran) 4 mg IVPUSH ONETIME ONE Stop: 05/25/18 16:48 Last Admin: 05/25/18 16:59 Dose: 4 mg Oxycodone HCl (Oxycodone) 5 mg PO Q4H PRN PRN Reason: Pain (moderate 4-6) Last Admin: 05/25/18 20:51 Dose: 5 mg Oxycodone HCl (Oxycontin) 20 mg PO Q12HR [facility] Last Admin: 05/28/18 08:01 Dose: Not Given Pantoprazole Sodium (Protonix) 40 mg PO ONETIME ONE Stop: 05/25/18 16:33 Last Admin: 05/25/18 17:05 Dose: Not Given Pantoprazole Sodium (Protonix Iv) 40 mg IVPUSH ONETIME ONE Stop: 05/25/18 16:48 Last Admin: 05/25/18 17:03 Dose: 40 mg Pantoprazole Sodium (Protonix Iv) 40 mg IV Q12HR [facility] Pantoprazole Sodium (Protonix Iv) 40 mg IV Q12HR [facility] Stop: 05/27/18 21:01 Last Admin: 05/27/18 21:40 Dose: 40 mg Pantoprazole Sodium (Protonix) 40 mg PO BID [facility] Last Admin: 05/29/18 08:27 Dose: 40 mg Phenylephrine HCl (Mario-Synephrine 0.5% Regular Nasal [place]) 0 ml NASBOTH ONETIME ONE Stop: 06/05/18 12:11 Last Admin: 06/05/18 14:06 Dose: 2 spray Potassium Chloride (Pharmacy To Dose - Potassium Replacement) 0 dose .XX ASDIRECTED PRN PRN Reason: RX TO WATCH K Quetiapine Fumarate (Seroquel) 50 mg PO BEDTIME [facility] Last Admin: 05/28/18 20:33 Dose: 50 mg Quetiapine Fumarate (Seroquel) 50 mg PO BEDTIME [facility] Quetiapine Fumarate (Seroquel) 25 mg PO BID [facility] Last Admin: 06/06/18 09:39 Dose: 25 mg Rocuronium [place] (Zemuron) 60 mg IVPUSH ONETIME ONE Stop: 05/29/18 15:26 Last Admin: 05/29/18 15:25 Dose: 60 mg Scopolamine (Transderm-Scop) 1.5 mg TRDERM Q72H ONE Stop: 05/25/18 20:01 Last Admin: 05/25/18 20:49 Dose: 1.5 mg Scopolamine (Transderm-Scop) 1.5 mg TOP ONETIME ONE Stop: 06/03/18 09:57 Last Admin: 06/03/18 10:17 Dose: 1.5 mg Topiramate (Topamax) 25 mg PO BID [facility] Last Admin: 05/29/18 08:25 Dose: 25 mg Topiramate (Topamax) 25 mg PO BID [facility] - Exam Quality Assessment: Urine Catheter, DVT Prophylaxis General: Alert, Oriented HEENT: Pupils Equal, Pupils Reactive, EOMI Neck: Trachea Midline, No JVD Lungs: Clear to Auscultation Cardiovascular: Regular Rate, Regular Rhythm GI/Abdominal Exam: Normal Bowel Sounds, Soft, Non-Tender, No Organomegaly, No Distention (Male) Exam: Deferred Back Exam: Normal Inspection Extremities: Normal Inspection, Non-Tender, Normal Capillary Refill Skin: Warm Neurological: No New Focal Deficit, Cranial Nerves Intact Psy/Mental Status: Alert, Labile Mood, Hallucinations, Withdrawal Symptoms - Problem List Review Problem List Initiated/Reviewed/Updated: Yes - My Orders Last 24 Hours: My Active Orders 06/06/18 21:00 QUEtiapine [SEROquel] 50 mg PO BID 06/07/18 09:00 Nicotine [Habitrol] 21 mg TRDERM DAILY 06/07/18 09:32 OT Evaluation and Treatment [CONS] Routine PT Evaluation and Treatment [CONS] Routine 06/07/18 09:56 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 and Treat [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uation and Treatment] [CONS] Routine 06/07/18 11:21 Haloperidol Lactate [Haldol] 5 mg IVPUSH Q8H PRN 06/07/18 13:00 Magnesium Sulfate/Water [Magnesium Sulfate 4 GM in Water 50 ML] 4 gm Premix Bag 1 bag IV ONETIME 06/07/18 15:35 AMMONIA VENOUS [CHEM] Routine 06/07/18 18:00 Magnesium Sulfate/Water [Magnesium Sulfate 4 GM in Water 50 ML] 4 gm Premix Bag 1 bag IV ONETIME 06/08/18 05:00 CRP [C-REACTIVE PROTEIN] [CHEM] DAILY 06/08/18 12:00 diazePAM [Valium] 7.5 mg IV DAILY 06/08/18 13:00 Haloperidol Lactate [Haldol] 4 mg IVPUSH DAILY 06/09/18 05:00 CRP [C-REACTIVE PROTEIN] [CHEM] DAILY 06/10/18 05:00 CRP [C-REACTIVE PROTEIN] [CHEM] DAILY - Plan Plan:: Assessment/Plan: Acute: POST EXTUBATION DAY 3 HALDOL/ATIVAN USE FOR ACUTE ETOH WITHDRAWAL/CHRONIC DEPENDENCE WITH SEVERE AGITATION, UNABLE TO REDIRECT. Original Note: Delirium Tremens on Mechanical Ventilator - Severe ETOH Withdrawal - RASS -4; advance to -5 - Plan to hopefully extubate after 48hrs - Continue IV Zosyn and will add Levaquin for aspiration coverage (had a lot for oral secretion during intubation) - Continue IV Propofol and Midazolam drip per paper [facility] Protocol; if we run out of versed will augment with Ativan drip - CXR shows stable placement of NGT and Tip of ETT; previously had increased density within the left lung base; repeat CXR. ETOH Withdrawal Symptoms w/ Aggression and Combativeness - Carries a hx/o Chronic ETOH Use - Alcoholism is now causing serious health issues - VISHNU is 0.38 - CIWA score 13->20 - Thiamine, Folic Acid, and MVI - Midazolam drip per Protocol (see Manual Provided) - SAC; refused services; we will try again once alert and awake - Hold Tele-psych consult; he is not appropriate at this time - Advised to quit drinking - Discussed option for possible intubation if his aggression/combativeness persists; mom consented Hyponatremia, resolved - NA 127-->132-->134 2/2 D5W infusion - No episode of seizures observed - Restart D5WNS 0.9% with 20mEq of IVF at 50 cc/hr for glucose maintenance Nicotine Dependence - Smokes Cigarettes: 2ppd - Nicotine patch daily Hypomagnesemia, aggresively replace - Mg 1.6-->1.6--> 1.2 - 2/2 NPO status - Replete and monitor Resolved: S/p Hypokalemia - K 3.1-->4.3 - 2/2 GI Loss - Replete and monitor S/p Severe Pancreatitis - Carries a hx/o Chronic ETOH Use/Dependence - 2/2 ETOH Pancreatitis; drinks heavily - VISHNU level is 0.38 - Lipase is 5831-->3801-->1115-->548-->407 - CT scan report reads fairly severe pancreatitis with diffuse surrounding inflammatory change, mild pancreatic edema as well as fluid around the pancreas extending into the paracolic gutter and into the dependent portion of the pelvis. - MIKEY' Criteria: 1 = LHD level of 512-1% predicted Mortality; BISAP score is 0 (Patients with a BISAP Score of 0 had <1% risk of mortality) - Continue IV fluids, pain control, anti-emesis and electrolytes supplement - May start clear liquid diet and advance to soft and regular (nonfatty/ nongreasy meal) as tolerated - Excellent urine output S/p Transaminitis - AST/ALT= 2:1; 138:66-->91:48-->65:37 - 2/2 ETOH Abuse - IV fluids and will avoid acetaminophen Nutrition--TF started after NGT placed. Jevity 1.2 40 cc/hr advance to 80 cc/hr , calories 2300 chey, protein 106 gm. Chronic: HTN ETOH Pancreatitis Alcoholism Depression Fatty Liver - 2/2 Chronic ETOH Use - CT Scan report reads prominent fatty infiltration within the liver; seen on CT scan 10/29/2016 as well - NPO for now except ice chips, sips fo water and oral meds - Advised to quit drinking Substance Abuse: Oxycodone, Marijuana, Amphetamine and Meth Plan: He looks comfortable this morning Routine AM Labs Continue CIWA Protocol GI/DVT PPx: PPI/SCDs SW/CM for d/c planning Additional orders as above Code status:1 LOS anticipate > 96hrs due patient is on mechanical ventilator; tolerating extubation. Advance diet as tolerated. Psych/SA consults, TBD. LOS>96 hours with severe ETOH withdrawal
[2018-06-07] MEDS: Enoxaparin 40 MG/0.4 ML Syringe SUBCUT SCH (18:28)
[2018-06-07] MEDS: Topiramate 25 MG Tab PO SCH (20:05)
[2018-06-07] MEDS: Folic Acid 1 MG Tab PO SCH (20:06)
[2018-06-07] MEDS: cloNIDine 0.1 MG Tab PO PRN (21:16)
[2018-06-07] MEDS: diazePAM 5 MG/ML-2ml Syringe IV PRN (21:34)
[2018-06-08] MEDS: LORazepam 2 MG/ML SDV IVPUSH PRN (06:20)
[2018-06-08] MEDS: Dextrose 5%-0.9% NaCl with KCl 1,000 ML IV SCH (08:15)
[2018-06-08] MEDS: Thiamine 100 MG Tab PO SCH (09:00)
[2018-06-08] MEDS: chlordiazePOXIDE 25 MG Cap PO SCH (09:00)
[2018-06-08] MEDS: QUEtiapine 25 MG Tab PO SCH (09:01)
[2018-06-08] MEDS: guaiFENesin 600 MG Tab.ER PO SCH (09:01)
[2018-06-08] MEDS: Famotidine 20 MG Tab PO SCH (09:01)
[2018-06-08] MEDS: Nicotine 21 MG/24 Hr Patch TRDERM SCH (09:02)
[2018-06-08] MEDS ORDERED: diazePAM 5 MG/ML-2ml Syringe IV SCH (12:00)
[2018-06-08 12:08] VITALS: BP 116/74
[2018-06-08] MEDS ORDERED: Haloperidol Lactate 5 MG/ML SDV IVPUSH SCH (13:00)
--- NOTE | 2018-06-08 13:32 | PCM.DCSUM1 ---
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 5 mg PO Q4H PRN PRN Reason: Pain (moderate 4-6) Last Admin: 05/25/18 20:51 Dose: 5 mg Oxycodone HCl (Oxycontin) 20 mg PO Q12HR BART Last Admin: 05/28/18 08:01 Dose: Not Given Pantoprazole Sodium (Protonix) 40 mg PO ONETIME ONE Stop: 05/25/18 16:33 Last Admin: 05/25/18 17:05 Dose: Not Given Pantoprazole Sodium (Protonix Iv) 40 mg IVPUSH ONETIME ONE Stop: 05/25/18 16:48 Last Admin: 05/25/18 17:03 Dose: 40 mg Pantoprazole Sodium (Protonix Iv) 40 mg IV Q12HR [facility] Pantoprazole Sodium (Protonix Iv) 40 mg IV Q12HR [facility] Stop: 05/27/18 21:01 Last Admin: 05/27/18 21:40 Dose: 40 mg Pantoprazole Sodium (Protonix) 40 mg PO BID [facility] Last Admin: 05/29/18 08:27 Dose: 40 mg Phenylephrine HCl (Mario-Synephrine 0.5% Regular Nasal [place]) 0 ml NASBOTH ONETIME ONE Stop: 06/05/18 12:11 Last Admin: 06/05/18 14:06 Dose: 2 spray Potassium Chloride (Pharmacy To Dose - Potassium Replacement) 0 dose .XX ASDIRECTED PRN PRN Reason: RX TO WATCH K Quetiapine Fumarate (Seroquel) 50 mg PO BEDTIME [facility] Last Admin: 05/28/18 20:33 Dose: 50 mg Quetiapine Fumarate (Seroquel) 50 mg PO BEDTIME [facility] Quetiapine Fumarate (Seroquel) 25 mg PO BID [facility] Last Admin: 06/06/18 09:39 Dose: 25 mg Rocuronium [place] (Zemuron) 60 mg IVPUSH ONETIME ONE Stop: 05/29/18 15:26 Last Admin: 05/29/18 15:25 Dose: 60 mg Scopolamine (Transderm-Scop) 1.5 mg TRDERM Q72H ONE Stop: 05/25/18 20:01 Last Admin: 05/25/18 20:49 Dose: 1.5 mg Scopolamine (Transderm-Scop) 1.5 mg TOP ONETIME ONE Stop: 06/03/18 09:57 Last Admin: 06/03/18 10:17 Dose: 1.5 mg Topiramate (Topamax) 25 mg PO BID [facility] Last Admin: 05/29/18 08:25 Dose: 25 mg Topiramate (Topamax) 25 mg PO BID [facility] - Exam Quality Assessment: Reports: Urine Catheter, DVT Prophylaxis General: Reports: Alert, Oriented (person, place) HEENT: Reports: Pupils Equal, Pupils Reactive, EOMI Neck: Reports: Trachea Midline, No JVD Lungs: Reports: Normal Respiratory Effort Cardiovascular: Reports: Regular Rate, Regular Rhythm GI/Abdominal Exam: Normal Bowel Sounds, Soft, Non-Tender, No Organomegaly, No Distention (Male) Exam: Deferred Rectal (Males) Exam: Deferred Back Exam: Reports: Normal Inspection Extremities: Normal Inspection, Non-Tender, Normal Capillary Refill Skin: Reports: Warm Neurological: Reports: No New Focal Deficit Psy/Mental Status: Reports: Alert
[2018-06-08] MEDS: Acetaminophen 325 MG Tab PO PRN (13:37)
[2018-06-08] MEDS ORDERED: Magnesium Sulfate/Water 4 GM in Premix Bag 1 BAG IV ONE (13:40)
[2018-06-08] MEDS: LORazepam 80 MG in Sodium Chloride 0.9% 40 ML IV SCH (14:11)
== END 2018-06-08 15:15 | DRG 896 ==
LOC: JD.ED 15:23 → JD.ICU 19:25
PROVIDERS: ADMIT Internal Medicine; ATTEND Internal Medicine
PROC: 0BH17EZ Insertion of Endotracheal Airway into Trachea, Via Natural or Artificial Opening (ICD-10-PCS; principal; 2018-05-29)
PROC: 5A1945Z Respiratory Ventilation, 24-96 Consecutive Hours (ICD-10-PCS; 2018-05-29)
PROC: 0D9670Z Drainage of Stomach with Drainage Device, Via Natural or Artificial Opening (ICD-10-PCS; 2018-05-29)
PROC: 0DH67UZ Insertion of Feeding Device into Stomach, Via Natural or Artificial Opening (ICD-10-PCS; 2018-06-05)
PROC: 3E0G76Z Introduction of Nutritional Substance into Upper GI, Via Natural or Artificial Opening (ICD-10-PCS; 2018-06-05)
DX: F10.231 Alcohol dependence with withdrawal delirium (principal); K85.20 Alcohol induced acute pancreatitis without necrosis or infection; E87.1 Hypo-osmolality and hyponatremia; K86.0 Alcohol-induced chronic pancreatitis; F10.229 Alcohol dependence with intoxication, unspecified; K70.0 Alcoholic fatty liver; F12.10 Cannabis abuse, uncomplicated; F11.10 Opioid abuse, uncomplicated; F17.210 Nicotine dependence, cigarettes, uncomplicated; I10 Essential (primary) hypertension; F32.9 Major depressive disorder, single episode, unspecified; E83.42 Hypomagnesemia; E87.6 Hypokalemia; R13.10 Dysphagia, unspecified; F15.23 Other stimulant dependence with withdrawal
CPT/HCPCS: 36415; 36600; 51702; 70450; 70450-26; 71045; 71045-26; 74177; 74177-26; 80048; 80053; 80076; 80306; 81001; 82140; 82803; 82962; 83036; 83615; 83690; 83735; 85007; 85025; 85027; 86140; 87040; 87086; 92610-GN; 93005; 94002; 94003; 96361; 96374; 96375; 97162-GP; 97167-GO; 97530-GO; 99285; 99285-25; A9270-GY; C9113; G0480; J0360; J1170; J1200; J1630; J1650; J1956; J2060; J2250; J2405; J2543; J2704; J3360; J3411; J3475; J3480; J3490; J7030; J7040; J7050; Q9963; Q9967

== ENCOUNTER 2018-11-22 15:45 | Emergency (ER) | payer MEDICAID ==
[2018-11-22 16:00] VITALS: PULSE 60
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
[2018-11-22] MEDS ORDERED: Sodium Chloride 0.9% 10 ML Syringe FLUSH PRN (16:37)
[2018-11-22] MEDS ORDERED: Folic Acid 1 MG Tab PO ONE (16:37)
[2018-11-22] MEDS ORDERED: Thiamine 100 MG Tab PO ONE (16:37)
[2018-11-22] MEDS ORDERED: Ondansetron 4 MG/2 ML SDV IVPUSH ONE (16:37)
[2018-11-22] MEDS ORDERED: LORazepam 2 MG/ML SDV IVPUSH ONE ×2 (16:39→16:56)
[2018-11-22] MEDS ORDERED: Sodium Chloride 0.9% 1,000 ML IV SCH (16:45)
[2018-11-22] MEDS ORDERED: HYDROmorphone 0.5 MG/0.5 ML Syringe IVPUSH ONE (17:04)
[2018-11-22] MEDS ORDERED: Pantoprazole 40 MG Vial IVPUSH ONE (17:04)
[2018-11-22 17:34] LABS: ACETAMINOPHEN 0 ug/mL (10-30)
[2018-11-22] MEDS ORDERED: Alum Hydrox/Mag Hydrox/Simeth 30 ML, Lidocaine 2% 15 ML PO ONE ×2 (19:15)
[2018-11-22] MEDS ORDERED: Sodium Chloride 0.9% 1,000 ML ONE (19:41)
[2018-11-22] MEDS ORDERED: chlordiazePOXIDE 25 MG Cap PO ONE (19:43)
[2018-11-22] MEDS ORDERED: cloNIDine 0.1 MG Tab PO ONE (19:43)
[2018-11-22] MEDS ORDERED: Sodium Chloride 0.9% 2,000 ML IV SCH (19:45)
[2018-11-22 20:49] VITALS: BP 151/112
--- NOTE | 2018-11-23 09:40 | CR ---
Chest: Portable view of the chest was obtained. Comparison: Prior chest x-ray of 09/27/18. Heart size and mediastinum are normal. Lungs are clear. Bony structures are grossly intact. Slight scoliosis is noted within the spine. Impression: 1. Nothing acute is appreciated on portable chest x-ray. Diagnostic code #1
--- NOTE | 2018-11-23 09:40 | CR ---
Abdomen: Supine and upright views of the abdomen were obtained. Comparison: Prior abdominal x-ray of 09/27/18. Bowel gas pattern is normal. Calcification is seen within the pelvis which is compatible with phlebolith. Bony structures appear within normal limits for the patient's age. No free air is seen. Impression: 1. Nothing acute is seen on two-view abdominal x-ray. Diagnostic code #1
== END 2018-11-22 21:59 | disposition home or self-care (01) ==
LOC: JD.ED 15:45
DX: R10.13 Epigastric pain (principal); R10.12 Left upper quadrant pain; F10.239 Alcohol dependence with withdrawal, unspecified; F12.10 Cannabis abuse, uncomplicated; F15.10 Other stimulant abuse, uncomplicated; D69.6 Thrombocytopenia, unspecified; I10 Essential (primary) hypertension; F17.210 Nicotine dependence, cigarettes, uncomplicated
CPT/HCPCS: 36415; 71045; 74019; 80053; 80306; 80320; 80329; 83690; 85025; 96361; 96374; 96375; 99284; A9270; C9113; J1170; J2060; J2405; J7040; G0480

== ENCOUNTER 2019-01-04 02:12 | Emergency (ER) | payer MEDICAID ==
[2019-01-04 02:22] VITALS: BP 152/102; PULSE 105
[2019-01-04] MEDS ORDERED: HYDROmorphone 1 MG/ML Syringe IVPUSH STA (02:50)
[2019-01-04] MEDS ORDERED: Ondansetron 4 MG/2 ML SDV IVPUSH ONE (02:50)
--- NOTE | 2019-01-04 02:55 | EDM.PDOC ---
ED HPI GENERAL MEDICAL PROBLEM - General Chief Complaint: Drug or Alcohol Abuse Stated Complaint: ABDOMINAL PAIN Time Seen by Provider: 01/04/19 02:29 Source of Information: Reports: Patient History Limitations: Reports: No Limitations - History of Present Illness INITIAL COMMENTS - FREE TEXT/NARRATIVE: Mr. Foss is a pleasant 38 year old man with a past medical history significant for binge alcoholism, untreated hypertension, and untreated depression, who has had CT-documented pancreatitis in the past, who now returns to the ED stating that he has been experiencing upper abdominal pain for the past 2 or 3 days, with nausea and vomiting for the past 2 days. He describes his abdominal pain as sharp in character. It is constant, made worse if he eats. He reports slight constipation, but no recent fever, watery diarrhea, or urinary symptoms. He states that he has had similar symptoms numerous times in the past, due to pancreatitis, with the most recent episode about one month ago. Review of prior medical records finds that it is true that the patient often, although not always, has an elevated lipase level, sometimes to a degree consistent with pancreatitis (3 times or or greater the upper limit of normal = 3 x 393 = 1179), although his most recent lipase on 11/22/2018 was normal at 106. [address] scans of his abdomen and pelvis that have been performed at this facility have demonstrated pancreatitis - the first on 02/16/2016, at which time his lipase was significantly elevated at 10,719, the second on 2018, at which time his lipase was elevated at 5831. The CT scan on 10/29/2016 did not find any evidence for pancreatitis, even though his lipase at that time was modestly elevated at 1313. The patient reports that he drinks about half of a 1.75 L bottle of whiskey per day (the equivalent of about 20 drinks per day), with his most recent drink around 22:30 tonight. His last period of sobriety was for about 10 days, about one month ago. He states that he has been to inpatient alcohol treatment 3 times in the past, most recently for about 3-1/2 weeks in January 2018. He states that he attends AA, with his most recent visit about 4 or 5 days ago. The patient has had severe alcohol withdrawal symptoms in the past, requiring intubation and a prolonged admission. Because of this, the last time that the patient was found to have pancreatitis, on 09/27/2018, admission here was refused , and the patient was transferred to [facility]. The patient does not have a PCP. Left Upper Abdominal Pain Score (Numeric/FACES): 10 - Related Data Allergies Allergy/AdvReac Type Severity Reaction Status Date / Time No Known Allergies Allergy Verified 01/04/19 02:18 Home Meds: Home Meds . [No Known Home Meds] 01/04/19 [History] Past Medical History Cardiovascular History: Reports: Hypertension (untreated) Gastrointestinal History: Reports: Pancreatitis Psychiatric History: Reports: Addiction (alcohol), Depression (untreated) - Infectious Disease History Infectious Disease History: Reports: Chicken Pox, Influenza - Past Surgical History HEENT Surgical History: Reports: Oral Surgery (Dentures) Musculoskeletal Surgical History: Reports: Other (See Below) (Right knee open ACL repair) Social & Family History - Family History Family Medical History: Noncontributory HEENT: Reports: Hearing Impairment Neurological: Reports: Alzheimers Disease Other Oncologic Family History: denies family history - Tobacco Use Smoking Status *Q: Current Every Day Smoker Years of Tobacco use: 21 Packs/Tins Daily: 3 - Caffeine Use Caffeine Use: Reports: Soda Other Caffeine Use: 4/day - Alcohol Use Alcohol Use History: Yes Number of Drinks Per Day: 20 Alcohol Use Frequency: Binges - Recreational Drug Use Recreational Drug Use: Yes Drug Use in Last 12 Months: Yes Recreational Drug Type: Reports: Marijuana/Hashish (last smoked Sep 2018), Methamphetamine (last smoked mid-Dec 2018) - Living Situation & Occupation Living situation: Reports: Single, with Family (Parents) 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 ED EXAM, GI/ABD - Physical Exam Exam: See Below Exam Limited By: No Limitations General Appearance: Alert, No Apparent Distress, Thin Eyes: Bilateral: Normal Appearance, EOMI Ears: Normal External Exam, Hearing Grossly Normal Nose: Normal Inspection Throat/Mouth: Normal Inspection, Normal Lips, Normal Teeth, Normal Voice, No Airway Compromise Head: Atraumatic, Normocephalic Neck: Normal Inspection, Full Range of Motion Respiratory/Chest: No Respiratory Distress, Lungs Clear, Normal Breath Sounds, No Accessory Muscle Use Cardiovascular: Normal Peripheral Pulses, Regular Rate, Rhythm, No Edema, No Gallop, No JVD, No Murmur, No Rub GI/Abdominal Exam: Normal Bowel Sounds, Soft, No Organomegaly, No Distention, No Abnormal Bruit, No Mass, Tender (Generalize, non-focal) (Male) Exam: Deferred Rectal (Males) Exam: Deferred Back Exam: Normal Inspection, Full Range of Motion. No: CVA Tenderness (L), CVA Tenderness (R) Extremities: Normal Inspection, Normal Range of Motion, No Pedal Edema, Normal Capillary Refill Neurological: Alert, Oriented, Normal Cognition, No Motor/Sensory Deficits Psychiatric: Normal Affect Skin Exam: Warm, Dry, Intact, Normal Color, No Rash Course - Vital Signs Last Recorded V/S: Last Vital Signs Temp 36.2 C 01/04/19 02:18 Pulse 105 H 01/04/19 02:18 Resp 18 01/04/19 02:18 BP 152/102 H 01/04/19 02:18 Pulse Ox 97 01/04/19 02:18 - Orders/Labs/Meds Orders: Active Orders 24 hr Category Date Time Status Abdomen Pelvis w Cont [CT] Stat Exams 01/04/19 02:50 Taken Potassium Chloride [KCl 10 MEQ in Water 100 ML] 10 meq Med 01/04/19 05:15 Ordered Premix Bag 1 bag IV Q1H Sodium Chloride 0.9% [Normal Saline] 1,000 ml Med 01/04/19 03:00 Active IV ASDIRECTED Medication Orders Sodium Chloride (Normal Saline) 1,000 mls @ 150 mls/hr IV ASDIRECTED BART Last Admin: 01/04/19 03:00 Dose: 150 mls/hr Potassium Chloride 10 meq/ (Premix) 100 mls @ 100 mls/hr IV Q1H BART Stop: 01/04/19 09:14 Last Admin: 01/04/19 05:13 Dose: 100 mls/hr Labs: Laboratory Tests 01/04/19 01/04/19 01/04/19 Range/Units 03:00 03:00 03:00 WBC 3.74 L (4.23-9.07) K/mm3 RBC 5.02 (4.63-6.08) M/mm3 Hgb 15.2 (13.7-17.5) gm/dl Hct 42.9 (40.1-51.0) % MCV 85.5 D (79.0-92.2) fl MCH 30.3 (25.7-32.2) pg MCHC 35.4 (32.2-35.5) g/dl RDW Std Deviation 41.2 (35.1-43.9) fL Plt Count 26 L (163-337) K/mm3 MPV 11.2 (9.4-12.3) fl Neutrophils % (Manual) 37 L (40-60) % Band Neutrophils % 2 (0-10) % Lymphocytes % (Manual) 49 H (20-40) % Atypical Lymphs % 0 % Monocytes % (Manual) 12 H (2-10) % Eosinophils % (Manual) 0 L (0.8-7.0) % Basophils % (Manual) 0 L (0.2-1.2) Platelet Estimate Marked dec Plt Morphology Comment Normal Target Cells 1+ slight RBC Morph Comment Not Reportable Sodium 141 (136-145) mEq/L Potassium 3.1 L (3.5-5.1) mEq/L Chloride 99 (98-107) mEq/L Carbon Dioxide 33 H (21-32) mEq/L Anion Gap 12.1 (5-15) BUN 8 (7-18) mg/dL Creatinine 0.8 (0.7-1.3) mg/dL Est Cr Clr Drug Dosing 114.66 mL/min Estimated GFR (MDRD) > 60 (>60) mL/min BUN/Creatinine Ratio 10.0 L (14-18) Glucose 102 (74-106) mg/dL Calcium 8.9 (8.5-10.1) mg/dL Magnesium 1.3 L (1.8-2.4) mg/dl Total Bilirubin 0.7 (0.2-1.0) mg/dL AST 190 H (15-37) U/L ALT 109 H (16-63) U/L Alkaline Phosphatase 102 (46-116) U/L Total Protein 8.0 (6.4-8.2) g/dl Albumin 4.0 (3.4-5.0) g/dl Globulin 4.0 gm/dL Albumin/Globulin Ratio 1.0 (1-2) Lipase 1773 H (73-393) U/L Urine Color (Yellow) Urine Appearance (Clear) Urine pH (5.0-8.0) Ur Specific [place] (1.005-1.030) Urine Protein (Negative) Urine Glucose (UA) (Negative) Urine Ketones (Negative) Urine Occult Blood (Negative) Urine Nitrite (Negative) Urine Bilirubin (Negative) Urine Urobilinogen (0.2-1.0) Ur Leukocyte Esterase (Negative) Urine RBC (0-5) /hpf Urine WBC (0-5) /hpf Ur Epithelial Cells (0-5) /hpf Urine Bacteria (FEW) /hpf Urine Mucus (FEW) /hpf 01/04/19 Range/Units 04:20 WBC (4.23-9.07) K/mm3 RBC (4.63-6.08) M/mm3 Hgb (13.7-17.5) gm/dl Hct (40.1-51.0) % MCV (79.0-92.2) fl MCH (25.7-32.2) pg MCHC (32.2-35.5) g/dl RDW Std Deviation (35.1-43.9) fL Plt Count (163-337) K/mm3 MPV (9.4-12.3) fl Neutrophils % (Manual) (40-60) % Band Neutrophils % (0-10) % Lymphocytes % (Manual) (20-40) % Atypical Lymphs % % Monocytes % (Manual) (2-10) % Eosinophils % (Manual) (0.8-7.0) % Basophils % (Manual) (0.2-1.2) Platelet Estimate Plt Morphology Comment Target Cells RBC Morph Comment Sodium (136-145) mEq/L Potassium (3.5-5.1) mEq/L Chloride (98-107) mEq/L Carbon Dioxide (21-32) mEq/L Anion Gap (5-15) BUN (7-18) mg/dL Creatinine (0.7-1.3) mg/dL Est Cr Clr Drug Dosing mL/min Estimated GFR (MDRD) (>60) mL/min BUN/Creatinine Ratio (14-18) Glucose (74-106) mg/dL Calcium (8.5-10.1) mg/dL Magnesium (1.8-2.4) mg/dl Total Bilirubin (0.2-1.0) mg/dL AST (15-37) U/L ALT (16-63) U/L Alkaline Phosphatase (46-116) U/L Total Protein (6.4-8.2) g/dl Albumin (3.4-5.0) g/dl Globulin gm/dL Albumin/Globulin Ratio (1-2) Lipase (73-393) U/L Urine Color Light yellow (Yellow) Urine Appearance Clear (Clear) Urine pH 7.0 (5.0-8.0) Ur Specific [place] 1.010 (1.005-1.030) Urine Protein 2+ H (Negative) Urine Glucose (UA) Negative (Negative) Urine Ketones Negative (Negative) Urine Occult Blood 2+ H (Negative) Urine Nitrite Negative (Negative) Urine Bilirubin Negative (Negative) Urine Urobilinogen 1.0 (0.2-1.0) Ur Leukocyte Esterase Negative (Negative) Urine RBC 5-10 H (0-5) /hpf Urine WBC 0-5 (0-5) /hpf Ur Epithelial Cells Not seen (0-5) /hpf Urine Bacteria Rare (FEW) /hpf Urine Mucus Not seen (FEW) /hpf Meds: Medications Generic Name Dose Route Start Last Admin Trade Name Freq PRN Reason Stop Dose Admin Sodium Chloride 1,000 mls @ 150 mls/hr 01/04/19 03:00 01/04/19 03:00 Normal Saline IV 150 mls/hr ASDIRECTED BART Administration Potassium Chloride 10 meq/ 100 mls @ 100 mls/hr 01/04/19 05:15 01/04/19 05:13 Premix IV 01/04/19 09:14 100 mls/hr Q1H BART Administration Discontinued Medications Generic Name Dose Route Start Last Admin Trade Name Freq PRN Reason Stop Dose Admin Hydromorphone HCl 0.5 mg 01/04/19 02:50 01/04/19 02:58 Dilaudid IVPUSH 01/04/19 02:51 0.5 mg ONETIME STA Administration Hydromorphone HCl 0.5 mg 01/04/19 04:33 01/04/19 04:43 Dilaudid IVPUSH 01/04/19 04:34 0.5 mg ONETIME ONE Administration Magnesium Sulfate 2 gm/ Premix 50 mls @ 50 mls/hr 01/04/19 04:01 01/04/19 04: 24 IV 01/04/19 05:00 50 mls/hr ONETIME ONE Administration Ondansetron HCl 4 mg 01/04/19 02:50 01/04/19 02:56 Zofran IVPUSH 01/04/19 02:51 4 mg ONETIME ONE Administration - Re-Assessments/Exams Free Text/Narrative Re-Assessment/Exam: 01/04/19 04:02 The patient's CBC is remarkable for a WBC count depressed at 3.74, and platelets substantially depressed at 26,000. The remainder of his CBC is unremarkable. His CMP is remarkable for a potassium depressed at 3.1, and bicarbonate elevated at 33. His AST/ALT are 190/109. The remainder of his CMP is unremarkable. His magnesium level is significantly depressed at 1.3. His lipase level is elevated at 1773. The patient's WBC count was 3.09 on 11/22/2018. His platelets were 56,000 on 11/22. Due to the hypokalemia and hypomagnesemia, I have ordered a 2 g Mg-rider, and once that has finished infusing, the patient will receive IV potassium chloride. The patient's urinalysis and CT results are still pending. 01/04/19 05:01 The patient's urinalysis is remarkable for 2+ occult blood and 5-10 RBCs, but is otherwise unremarkable. CT of the abdomen and pelvis with oral and IV contrast is read by Suni as: 1. Acute pancreatitis. 2. Hepatic steatosis. 01/04/19 05:20 Case discussed with Mya at [facility] at 05:09. Case then discussed with Dr. Mayer, Hospitalist at [facility], at 05:17. He accepted the patient for transfer to their facility. The patient will go by ground ambulance. Departure - Departure Time of Disposition: 05:23 Disposition: DC/Tfer to [facility] Clinical Impression: Thrombocytopenia concurrent with and due to alcoholism, Hypokalemia, Hypomagnesemia, Acute pancreatitis, Alcoholic hepatitis - Discharge Information *PRESCRIPTION DRUG MONITORING PROGRAM REVIEWED*: Not Applicable *COPY OF PRESCRIPTION DRUG MONITORING REPORT IN PATIENT DUONG: Not Applicable Referrals: PCP,None [Primary Care Provider] - - My Orders Last 24 Hours: My Active Orders 01/04/19 02:50 Abdomen Pelvis w Cont [CT] Stat 01/04/19 03:00 Sodium Chloride 0.9% [Normal Saline] 1,000 ml IV ASDIRECTED 01/04/19 05:15 Potassium Chloride [KCl 10 MEQ in Water 100 ML] 10 meq Premix Bag 1 bag IV Q1H - Assessment/Plan Last 24 Hours: My Active Orders 01/04/19 02:50 Abdomen Pelvis w Cont [CT] Stat 01/04/19 03:00 Sodium Chloride 0.9% [Normal Saline] 1,000 ml IV ASDIRECTED 01/04/19 05:15 Potassium Chloride [KCl 10 MEQ in Water 100 ML] 10 meq Premix Bag 1 bag IV Q1H
[2019-01-04] MEDS ORDERED: Sodium Chloride 0.9% 1,000 ML IV SCH (03:00)
[2019-01-04] MEDS ORDERED: Magnesium Sulfate/Water 2 GM in Premix Bag 1 BAG IV ONE (04:01)
[2019-01-04] MEDS ORDERED: HYDROmorphone 0.5 MG/0.5 ML Syringe IVPUSH ONE (04:33)
[2019-01-04] MEDS: Potassium Chloride 10 MEQ in Premix Bag 1 BAG IV SCH ×2 (05:13→06:15)
--- NOTE | 2019-01-04 07:07 | CT ---
CT abdomen and pelvis Technique: Multiple axial sections were obtained from above the dome of the diaphragm inferiorly through the pubic symphysis. Intravenous and oral contrast was not utilized. Delayed images were obtained through the bladder. Comparison: Previous CT abdomen and pelvis exam of 05/25/18. Findings: Visualized lung bases show nothing acute. Fatty infiltration is seen within the liver. Spleen appears within normal limits. Gallbladder contains no calcified gallstones. Adrenal glands show no nodule. Kidneys show symmetric contrast enhancement without hydronephrosis or mass. Inflammatory change identified around the pancreas. This does not appear as severe as seen on prior CT exam. Aorta shows no aneurysm. No retroperitoneal adenopathy or mesenteric abnormalities are seen. No pelvic mass or adenopathy is appreciated. Delayed images show contrast within the distal ureters and within the bladder. Appendix is seen which is normal in size. Bone window settings were reviewed which appear within normal limits for the patient's age. Impression: 1. Diffuse fatty infiltration throughout the liver. 2. Mild inflammatory change around the pancreas compatible with pancreatitis. These findings do not appear as severe as seen on previous exam. 3. No additional abnormality is appreciated. Diagnostic code #3 I agree with preliminary report from [facility], finalized on 01/04/19, 5:40 AM Central Time
== END 2019-01-04 06:49 ==
LOC: JD.ED 02:12
DX: T51.91XA Toxic effect of unspecified alcohol, accidental (unintentional), initial encounter (principal); D69.59 Other secondary thrombocytopenia; F10.20 Alcohol dependence, uncomplicated; I10 Essential (primary) hypertension; E87.6 Hypokalemia; E83.42 Hypomagnesemia; K85.90 Acute pancreatitis without necrosis or infection, unspecified; K70.10 Alcoholic hepatitis without ascites; F17.210 Nicotine dependence, cigarettes, uncomplicated
CPT/HCPCS: 36415; 74177; 80053; 81001; 83690; 83735; 85007; 85027; 96361; 96365; 96367; 96375; 96376; 99285; J1170; J2405; J3475; J3480; J7040

== ENCOUNTER 2019-03-06 22:52 | Emergency (ER) | payer MEDICAID ==
[2019-03-06 23:01] VITALS: BP 134/98; PULSE 103
[2019-03-06] MEDS ORDERED: Sodium Chloride 0.9% 1,000 ML IV ONE (23:46)
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
[2019-03-07] MEDS ORDERED: LORazepam 2 MG/ML SDV IVPUSH ONE ×2 (00:39)
== END 2019-03-07 00:50 | disposition home or self-care (01) ==
LOC: JD.ED 22:52
DX: K86.1 Other chronic pancreatitis (principal); E83.42 Hypomagnesemia; F10.20 Alcohol dependence, uncomplicated; Y90.0 Blood alcohol level of less than 20 mg/100 ml; D69.6 Thrombocytopenia, unspecified; F19.10 Other psychoactive substance abuse, uncomplicated; Z76.5 Malingerer [conscious simulation]; I10 Essential (primary) hypertension; F17.210 Nicotine dependence, cigarettes, uncomplicated
CPT/HCPCS: 36415; 80053; 80306; 80320; 81001; 83690; 83735; 85025; 96361; 96374; 99284; J2060; J7030; G0480

== ENCOUNTER 2019-03-20 12:24 | Emergency (ER) | payer MEDICAID ==
[2019-03-20 12:39] VITALS: PULSE 112
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
[2019-03-20] MEDS ORDERED: HYDROmorphone 1 MG/ML Syringe IVPUSH ONE (12:58)
[2019-03-20] MEDS ORDERED: Sodium Chloride 0.9% 10 ML Syringe FLUSH PRN (12:58)
[2019-03-20] MEDS ORDERED: Ondansetron 4 MG/2 ML SDV IVPUSH ONE (12:58)
[2019-03-20] MEDS ORDERED: Sodium Chloride 0.9% 1,000 ML IV SCH ×2 (13:00→14:30)
[2019-03-20 14:02] VITALS: BP 128/94
[2019-03-20] MEDS ORDERED: Potassium Chloride 10 MEQ in Premix Bag 1 BAG IV ONE (14:06)
[2019-03-20] MEDS ORDERED: Dextrose 5%-Lactated Ringers 1,000 ML IV SCH (17:00)
[2019-03-20] MEDS ORDERED: HYDROmorphone 0.5 MG/0.5 ML Syringe IVPUSH ONE (17:47)
[2019-03-20] MEDS ORDERED: LORazepam 2 MG/ML SDV IVPUSH ONE (18:34)
== END 2019-03-20 19:30 | disposition home or self-care (01) ==
LOC: JD.ED 12:24
DX: K85.20 Alcohol induced acute pancreatitis without necrosis or infection (principal); K29.70 Gastritis, unspecified, without bleeding; F10.129 Alcohol abuse with intoxication, unspecified; Y90.0 Blood alcohol level of less than 20 mg/100 ml; I10 Essential (primary) hypertension
CPT/HCPCS: 36415; 80053; 80320; 83690; 85025; 96361; 96365; 96366; 96375; 96376; 99284; J1170; J2060; J2405; J3480; J7030; J7121; G0480

== ENCOUNTER 2019-04-07 21:54 | Emergency (ER) | payer MEDICAID ==
[2019-04-07 22:22] VITALS: BP 135/93; PULSE 75
[2019-04-08] MEDS ORDERED: Magnesium Sulfate/Water 2 GM in Premix Bag 1 BAG IV ONE (01:21)
[2019-04-08] MEDS ORDERED: Potassium Chloride 20 MEQ Tab.ER PO ONE (01:21)
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
[2019-04-08] MEDS ORDERED: Alum Hydrox/Mag Hydrox/Simeth 30 ML, Lidocaine 2% 15 ML PO ONE ×2 (01:30)
[2019-04-08] MEDS ORDERED: Pantoprazole 40 MG Vial IVPUSH ONE (01:30)
[2019-04-08] MEDS: Potassium Chloride 10 MEQ in Premix Bag 1 BAG IV SCH ×4 (01:44→04:38)
[2019-04-08] MEDS ORDERED: Sucralfate Suspension 1 GM/10 ML Cup PO ONE (02:22)
[2019-04-08] MEDS ORDERED: HYDROmorphone 0.5 MG/0.5 ML Syringe IVPUSH ONE (04:21)
== END 2019-04-08 06:26 | disposition home or self-care (01) ==
LOC: SUPCPDRO 21:54 → JD.ED 21:54
DX: K29.70 Gastritis, unspecified, without bleeding (principal); I10 Essential (primary) hypertension; F32.9 Major depressive disorder, single episode, unspecified; F17.210 Nicotine dependence, cigarettes, uncomplicated; Z79.899 Other long term (current) drug therapy
CPT/HCPCS: 36415; 80053; 80320; 83690; 83735; 85025; 96365; 96366; 96367; 96368; 96375; 96376; 99284; A9270; C9113; J1170; J3475; J3480; 99283; G0480

== ENCOUNTER 2019-05-05 17:23 | Emergency (ER) | payer MEDICAID ==
[2019-05-05 17:45] VITALS: BP 130/89; PULSE 89
[2019-05-05] MEDS ORDERED: HYDROmorphone 1 MG/ML Syringe IVPUSH STA (18:08)
[2019-05-05] MEDS ORDERED: Ondansetron 4 MG/2 ML SDV IVPUSH ONE (18:08)
[2019-05-05] MEDS ORDERED: Sodium Chloride 0.9% 10 ML Syringe FLUSH PRN ×2 (18:09→19:42)
[2019-05-05] MEDS ORDERED: Sodium Chloride 0.9% 1,000 ML IV SCH (18:15)
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
[2019-05-05] MEDS ORDERED: Iopamidol 612 MG/ML 100 ML Bottle IVPUSH ONE (19:42)
[2019-05-05] MEDS ORDERED: Diatrizoate Meglumine/Diatrizoate Sodium 37% 120 ML Bottle PO ONE (19:42)
[2019-05-05] MEDS ORDERED: Potassium Chloride 20 MEQ Tab.ER PO ONE ×2 (19:57→21:19)
[2019-05-05] MEDS ORDERED: Lactated Ringers 1,000 ML IV ONE (19:59)
--- NOTE | 2019-05-05 20:48 | CT ---
CT abdomen and pelvis Technique: Multiple axial sections were obtained from above the dome of the diaphragm inferiorly through the pubic symphysis. Intravenous and oral contrast was given. Delayed images were also obtained through the bladder. Comparison: Previous CT abdomen and pelvis exam of 01/04/19. Findings: Visualized lung bases show nothing acute. Liver shows diffuse fatty infiltration. Gallbladder contains no calcified gallstones. Spleen appears within normal limits. Pancreas shows no intraparenchymal abnormality. Minimal haziness around the pancreas is seen which appears fairly similar to previous exam. Adrenal glands show no nodule. Kidneys show symmetric contrast enhancement without hydronephrosis or mass. Aorta shows no aneurysm. No retroperitoneal adenopathy or mesenteric abnormalities are seen. No pelvic mass or adenopathy is identified. Appendix is seen which is normal in size. No free fluid or or other inflammatory change is seen. Bone window settings were reviewed which shows no acute osseous finding. Impression: 1. Mild haziness around the pancreas which is fairly stable from previous CT exam. Uncertain if findings represent persistent changes of chronic pancreatitis or represent recurrence of similar acute pancreatitis. 2. Diffuse fatty infiltration within the liver which is fairly stable from previous exam. 3. No other acute finding is seen on CT study of the abdomen and pelvis. Diagnostic code #3 This report was dictated in [place] Standard Time
[2019-05-05] MEDS ORDERED: HYDROmorphone 1 MG/ML Syringe IVPUSH ONE (21:02)
[2019-05-05] MEDS ORDERED: Acetaminophen/oxyCODONE 325-5 MG Tab PO ONE (21:18)
[2019-05-05] MEDS ORDERED: Ondansetron 4 MG Tab.DIS PO ONE (21:19)
== END 2019-05-05 22:01 | disposition home or self-care (01) ==
LOC: JD.ED 17:23
DX: K86.0 Alcohol-induced chronic pancreatitis (principal); I10 Essential (primary) hypertension; F32.9 Major depressive disorder, single episode, unspecified; F17.210 Nicotine dependence, cigarettes, uncomplicated; Z79.899 Other long term (current) drug therapy
CPT/HCPCS: 36415; 74177; 80053; 80306; 80307; 81001; 83690; 85007; 85027; 96361; 96374; 96375; 96376; 99284; A9270; J1170; J2405; J7030; J7120; Q9963; Q9967

== ENCOUNTER 2019-05-28 19:36 | Emergency (ER) | payer MEDICAID ==
[2019-05-28] MEDS ORDERED: Sodium Chloride 0.9% 10 ML Syringe FLUSH PRN (20:17)
[2019-05-28] MEDS ORDERED: Sodium Chloride 0.9% 1,000 ML IV ONE ×2 (20:17→20:29)
[2019-05-28] MEDS ORDERED: HYDROmorphone 1 MG/ML Syringe IVPUSH ONE ×2 (20:21→22:31)
[2019-05-28] MEDS ORDERED: Ondansetron 4 MG Tab.DIS PO ONE (20:21)
[2019-05-28] MEDS ORDERED: Ketorolac 30 MG/ML SDV IVPUSH ONE (20:22)
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
[2019-05-28] MEDS ORDERED: Potassium Chloride 20 MEQ Tab.ER PO ONE (21:39)
[2019-05-28] MEDS ORDERED: Iopamidol 612 MG/ML 100 ML Bottle IVPUSH ONE (21:57)
[2019-05-28] MEDS ORDERED: cefTRIAXone 2 GM in Sodium Chloride 0.9% 100 ML IV ONE (22:26)
[2019-05-28] MEDS ORDERED: Azithromycin 250 MG Tab PO ONE (22:27)
[2019-05-28 23:36] VITALS: BP 123/95; PULSE 69
[2019-05-28] MEDS ORDERED: Ondansetron 4 MG/2 ML SDV ONE (23:37)
[2019-05-28] MEDS ORDERED: Ondansetron 4 MG/2 ML SDV IVPUSH ONE (23:46)
--- NOTE | 2019-05-30 07:37 | CR ---
Chest: 2 views of the chest were obtained. Comparison: Prior chest x-ray of 11/22/18. Heart size and mediastinum are within normal limits. Patchy areas of increased density of the left mid and lower lung as well as within the right lower lung. Bony structures appear unremarkable. Impression: 1. Increased density within both sides of the chest most likely representing rather diffuse pneumonia. Diagnostic code #3 This report was dictated in MDT I agree with preliminary report from [facility], finalized on 05/28/19, 11:23 PM Central Time
--- NOTE | 2019-05-30 07:38 | CT ---
CT abdomen and pelvis Technique: Multiple axial sections were obtained from above the dome of the diaphragm inferiorly through the pubic symphysis. Intravenous contrast was utilized. Delayed images were obtained of the bladder. Comparison: Prior CT abdomen and pelvis exam of 05/05/18. Findings: Consolidation is seen within both lung bases most likely representing pneumonia. Liver shows diffuse fatty infiltration. Spleen appears within normal limits. Adrenal glands show no nodule. Pancreas is within normal limits. Gallbladder contains no calcified gallstones. Kidneys show symmetric contrast enhancement without hydronephrosis or mass. Aorta shows no aneurysm. Appendix is seen which is normal. No pelvic mass or adenopathy is seen. No free fluid or inflammatory change is identified. Bone window settings were reviewed which show no acute osseous finding. Impression: 1. Fatty infiltration within the liver. 2. Consolidation within both lower lungs most likely representing pneumonia. 3. No other acute finding is appreciated on CT study of the abdomen and pelvis. Diagnostic code #3 This report was dictated in MDT I agree with preliminary report from [facility], finalized on 05/28/19, 11:22 PM Central Time
== END 2019-05-28 23:45 ==
LOC: JD.ED 19:36
DX: J18.9 Pneumonia, unspecified organism (principal); E87.6 Hypokalemia; F10.20 Alcohol dependence, uncomplicated; Y90.0 Blood alcohol level of less than 20 mg/100 ml
CPT/HCPCS: 36415; 71046; 74177; 80053; 80307; 83605; 83690; 85007; 85027; 85610; 86140; 87040; 87804; 96361; 96374; 96375; 96376; 99285; A9270; J0696; J1170; J1885; J7030; J7050; Q9967; 99284

== ENCOUNTER 2019-06-20 19:28 | Emergency (ER) | payer MEDICAID ==
[2019-06-20 19:49] VITALS: BP 121/83; PULSE 72
[2019-06-20] MEDS ORDERED: Sodium Chloride 0.9% 10 ML Syringe FLUSH PRN (19:58)
[2019-06-20] MEDS ORDERED: Ondansetron 4 MG/2 ML SDV IVPUSH ONE (20:21)
[2019-06-20] MEDS ORDERED: Famotidine 20 MG/2 ML SDV IVPUSH ONE (20:21)
[2019-06-20] MEDS ORDERED: HYDROmorphone 1 MG/ML Syringe IVPUSH ONE (20:22)
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
[2019-06-20] MEDS ORDERED: HYDROmorphone 0.5 MG/0.5 ML Syringe IVPUSH ONE (22:08)
--- NOTE | 2019-06-20 22:14 | CR ---
Chest: Portable view of the chest was obtained. Comparison: Prior chest x-ray of 05/28/19. Parenchymal density is seen on prior study show improvement. There is a small new pleural effusion on the right side. Lung markings remain slightly increased. Heart size and mediastinum are within normal limits for portable technique. Impression: 1. Small right-sided pleural effusion. 2. Slight increase perihilar markings possibly due to bronchitis. This may be bacterial or viral in etiology. 3. Previous areas of pneumonia show improvement. Diagnostic code #3 This report was dictated in MDT
== END 2019-06-20 22:45 | disposition home or self-care (01) ==
LOC: JD.ED 19:28
DX: R10.13 Epigastric pain (principal); F10.920 Alcohol use, unspecified with intoxication, uncomplicated; I10 Essential (primary) hypertension; F17.210 Nicotine dependence, cigarettes, uncomplicated
CPT/HCPCS: 36415; 71045; 80053; 80307; 82728; 83605; 83615; 83690; 85025; 86140; 96374; 96375; 96376; 99284; J1170; J2405; J3490; 99283

== ENCOUNTER 2019-06-27 17:46 | Emergency (ER) | payer MEDICAID ==
[2019-06-27 18:06] VITALS: BP 145/91; PULSE 100
[2019-06-27] MEDS ORDERED: Sodium Chloride 0.9% 10 ML Syringe FLUSH PRN (18:45)
[2019-06-27] MEDS ORDERED: Ondansetron 4 MG/2 ML SDV IVPUSH ONE (18:45)
[2019-06-27] MEDS ORDERED: Sodium Chloride 0.9% 1,000 ML IV ONE (18:46)
[2019-06-27] MEDS ORDERED: Famotidine 20 MG/2 ML SDV IVPUSH ONE (18:46)
[2019-06-27] MEDS ORDERED: HYDROmorphone 0.5 MG/0.5 ML Syringe IVPUSH ONE (20:51)
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
== END 2019-06-27 22:05 | disposition home or self-care (01) ==
LOC: JD.ED 17:46
DX: R10.84 Generalized abdominal pain (principal); F10.129 Alcohol abuse with intoxication, unspecified; Y90.0 Blood alcohol level of less than 20 mg/100 ml; Z76.5 Malingerer [conscious simulation]; I10 Essential (primary) hypertension; F17.210 Nicotine dependence, cigarettes, uncomplicated
CPT/HCPCS: 36415; 80053; 80307; 83690; 85025; 86140; 96361; 96374; 96375; 99284; J1170; J2405; J3490; J7030

== ENCOUNTER 2019-07-28 15:30 | Emergency (ER) | payer MEDICAID ==
[2019-07-28 15:41] VITALS: BP 143/96; PULSE 91
[2019-07-28] MEDS ORDERED: Ondansetron 4 MG/2 ML SDV IVPUSH ONE (15:54)
[2019-07-28] MEDS ORDERED: Ketorolac 30 MG/ML SDV IVPUSH ONE (15:54)
[2019-07-28] MEDS ORDERED: HYDROmorphone 0.5 MG/0.5 ML Syringe IVPUSH ONE (15:54)
[2019-07-28] MEDS ORDERED: Sodium Chloride 0.9% 10 ML Syringe FLUSH PRN (15:55)
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
[2019-07-28] MEDS ORDERED: Sodium Chloride 0.9% 1,000 ML IV SCH (16:00)
[2019-07-28] MEDS ORDERED: HYDROmorphone 1 MG/ML Syringe IVPUSH ONE (17:07)
[2019-07-28] MEDS ORDERED: Acetaminophen/oxyCODONE 325-5 MG Tab PO ONE (18:44)
== END 2019-07-28 19:12 | disposition home or self-care (01) ==
LOC: JD.ED 15:30
DX: K86.1 Other chronic pancreatitis (principal); F17.210 Nicotine dependence, cigarettes, uncomplicated; I10 Essential (primary) hypertension; Z79.899 Other long term (current) drug therapy
CPT/HCPCS: 36415; 80053; 81001; 83690; 83735; 85025; 86140; 96374; 96375; 96376; 99284; A9270; J1170; J1885; J2405; J7030

== ENCOUNTER 2019-08-21 21:28 | Emergency (ER) | payer MEDICAID ==
[2019-08-21] MEDS ORDERED: Ondansetron 4 MG/2 ML SDV IVPUSH ONE (22:25)
[2019-08-21] MEDS ORDERED: HYDROmorphone 0.5 MG/0.5 ML Syringe IVPUSH ONE (22:25)
[2019-08-21] MEDS ORDERED: Lactated Ringers 500 ML IV ONE (22:26)
[2019-08-21] MEDS ORDERED: Lactated Ringers 1,000 ML IV SCH (22:30)
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
[2019-08-22] MEDS ORDERED: Potassium Chloride 20 MEQ Tab.ER PO ONE (00:02)
[2019-08-22] MEDS ORDERED: Cyanocobalamin (Vitamin B12) 1,000 MCG/ML SDV IM ONE (00:12)
[2019-08-22] MEDS ORDERED: Folic Acid 50 MG/10 ML MDV IV ONE (00:13)
[2019-08-22] MEDS ORDERED: HYDROmorphone 0.5 MG/0.5 ML Syringe IVPUSH ONE (00:19)
[2019-08-22] MEDS ORDERED: Folic Acid 1 MG Tab ONE (00:23)
[2019-08-22] MEDS ORDERED: Folic Acid 1 MG Tab PO SCH (00:45)
[2019-08-22 01:46] VITALS: BP 107/88; PULSE 70
== END 2019-08-22 01:40 | disposition home or self-care (01) ==
LOC: SUPCPDRO 21:28 → JD.ED 21:28
DX: K86.0 Alcohol-induced chronic pancreatitis (principal); F10.10 Alcohol abuse, uncomplicated; I10 Essential (primary) hypertension; F17.210 Nicotine dependence, cigarettes, uncomplicated; Z79.899 Other long term (current) drug therapy
CPT/HCPCS: 36415; 80053; 80307; 81001; 82977; 83690; 85025; 96372; 96374; 96375; 96376; 99284; A9270; J1170; J2405; J3420; J7120

== ENCOUNTER 2019-08-22 20:52 | Inpatient (IN) | payer MEDICAID ==
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
[2019-08-22] MEDS ORDERED: Ondansetron 4 MG/2 ML SDV IVPUSH ONE (21:27)
[2019-08-22] MEDS ORDERED: HYDROmorphone 0.5 MG/0.5 ML Syringe IVPUSH ONE (21:27)
[2019-08-22] MEDS: Lactated Ringers 1,000 ML IV SCH (21:37)
[2019-08-22] MEDS ORDERED: Lactated Ringers 500 ML IV ONE (21:46)
[2019-08-22] MEDS ORDERED: Potassium Chloride 20 MEQ Tab.ER PO ONE (23:07)
[2019-08-22] MEDS ORDERED: Magnesium Sulfate/Water 2 GM in Premix Bag 1 BAG IV ONE (23:07)
[2019-08-23] MEDS: HYDROmorphone 0.5 MG/0.5 ML Syringe IVPUSH PRN ×3 (00:12→06:44)
[2019-08-23] MEDS: Lactated Ringers 1,000 ML IV SCH ×4 (03:39→23:47)
[2019-08-23] MEDS: Meperidine 50 MG/ML Vial IVPUSH PRN ×3 (10:41→23:47)
[2019-08-23] MEDS: Ondansetron 4 MG/2 ML SDV IVPUSH PRN (10:49)
[2019-08-23] MEDS: Thiamine 1,000 MG, Magnesium Sulfate 4 GM, Folic Acid 1 MG in Dextrose 5%-0.9% NaCl 1,0... IV SCH (11:04)
[2019-08-23] MEDS ORDERED: LORazepam 2 MG/ML SDV IVPUSH ONE (11:26)
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
[2019-08-23] MEDS: LORazepam 2 MG/ML SDV IVPUSH PRN ×2 (14:15→20:18)
[2019-08-24] MEDS: LORazepam 2 MG/ML SDV IVPUSH PRN ×5 (02:01→22:06)
[2019-08-24] MEDS: Meperidine 50 MG/ML Vial IVPUSH PRN ×3 (06:00→17:58)
[2019-08-24] MEDS ORDERED: Magnesium Sulfate/Water 4 GM in Premix Bag 1 BAG IV ONE (07:20)
[2019-08-24] MEDS: Lactated Ringers 1,000 ML IV SCH ×2 (08:42→16:44)
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
[2019-08-24] MEDS: Thiamine 1,000 MG, Magnesium Sulfate 4 GM, Folic Acid 1 MG in Dextrose 5%-0.9% NaCl 1,0... IV SCH (10:34)
[2019-08-24] MEDS: Nicotine 21 MG/24 Hr Patch TRDERM SCH ×2 (10:35→13:23)
[2019-08-24] MEDS: Ondansetron 4 MG/2 ML SDV IVPUSH PRN (12:15)
[2019-08-24] MEDS ORDERED: LORazepam 2 MG/ML SDV IVPUSH ONE ×5 (12:33→19:25)
[2019-08-24] MEDS ORDERED: Nicotine 21 MG/24 Hr Patch TRDERM SCH (13:15)
[2019-08-24] MEDS ORDERED: LORazepam 2 MG/ML SDV ONE ×2 (16:57→19:25)
[2019-08-24] MEDS ORDERED: LORazepam 2 MG/ML SDV IVPUSH SCH (17:30)
[2019-08-24] MEDS: QUEtiapine 25 MG Tab PO SCH (20:09)
[2019-08-24] MEDS ORDERED: Haloperidol Lactate 5 MG/ML SDV IVPUSH PRN (21:50)
[2019-08-24] MEDS ORDERED: Haloperidol Lactate 5 MG/ML SDV ONE (21:52)
[2019-08-24] MEDS ORDERED: Propofol 200 MG/20 ML SDV ONE (23:00)
[2019-08-24] MEDS ORDERED: Ketamine 500 mg/10 ML MDV ONE (23:00)
[2019-08-24] MEDS ORDERED: Etomidate 2 MG/ML 20 ML SDV IVPUSH ONE (23:00)
[2019-08-24] MEDS ORDERED: Succinylcholine 200 MG/10 ML MDV ONE (23:00)
[2019-08-24] MEDS ORDERED: Midazolam 1 MG/ML 5 ML SDV ONE (23:00)
[2019-08-24] MEDS ORDERED: Labetalol 100 MG/20 ML MDV IVPUSH STA (23:10)
[2019-08-24] MEDS ORDERED: Sodium Chloride 0.9% 100 ML ONE (23:13)
[2019-08-24] MEDS: fentaNYL 2,500 MCG in Sodium Chloride 0.9% 200 ML IV SCH (23:24)
--- NOTE | 2019-08-24 23:46 | PCM.PRNOTE ---
- Free Text/Narrative Note: Endotracheal Intubation Date: 08/24/2019 Time: 11:05PM Indication: Airway protection due to severe alcohol withdrawal symptoms Attending: Sara Marshall MD A time-out was completed verifying correct patient, procedure, site, positioning, and special equipment if applicable. The patient was placed in a flat position. Sedation was obtained using Etomidate 40mg and Succinylcholine 200mg. The patient was easily ventilated using an Ambu bag. The MAC 4 BLADE was used and inserted into the oropharynx at which time there was a Grade 1 view of the vocal cords. A 7-telugu endotracheal tube was inserted and visualized going through the vocal cords. The stylette was removed. Colorimetric change was visualized on the CO2 meter. Breath sounds were heard in both lung rangel equally. The endotracheal tube was placed at 25cm, measured at the teeth. A chest x-ray was ordered to assess for pneumothorax and verify endotracheal tube placement. Estimated Blood Loss: none The patient tolerated the procedure well and there were no complications.
[2019-08-24] MEDS ORDERED: hydrALAZINE 20 MG/ML SDV IVPUSH PRN (23:48)
[2019-08-25] MEDS: Lactated Ringers 1,000 ML IV SCH ×3 (00:41→14:24)
--- NOTE | 2019-08-25 06:26 | CR ---
Chest: Supine view of the chest was obtained. Comparison: Prior chest x-ray of 06/20/19. Heart size and mediastinum are normal. Nasogastric tube is seen coursing through the gastroesophageal junction into the stomach which is slightly coiled within stomach. Endotracheal tube is seen lying at the level of the clavicles. Lungs are clear no acute parenchymal change. Heart size and mediastinum are normal. Bony structures are grossly intact. Impression: 1. Nothing acute is appreciated on supine chest x-ray. 2. Tubes and catheters which appear satisfactory in position as noted above. Diagnostic code #3 This report was dictated in MDT I agree with preliminary report from [facility], finalized on 08/25/19, 1:09 AM Central Daylight Time
[2019-08-25] MEDS ORDERED: propofoL 100 ML ONE ×2 (07:17→07:22)
[2019-08-25] MEDS ORDERED: Propofol 200 MG/20 ML SDV IVPUSH ONE (07:20)
[2019-08-25] MEDS: propofoL 100 ML IV SCH ×2 (07:25→17:45)
[2019-08-25] MEDS ORDERED: Norepinephrine 4 MG/4 ML SDV ONE (07:29)
[2019-08-25] MEDS ORDERED: Magnesium Sulfate/Water 4 GM in Premix Bag 1 BAG IV ONE (07:31)
[2019-08-25] MEDS: Norepinephrine 4 MG in Dextrose 5% in Water 246 ML IV SCH ×2 (07:36)
[2019-08-25] MEDS ORDERED: Midazolam 100 MG in Premix Bag 1 BAG IV SCH (08:00)
--- NOTE | 2019-08-25 08:30 | PCM.PRNOTE ---
- Free Text/Narrative Note: Central Venous Catheter Placement Date: 08/25/2019 Indication: Need for caustic medication use Attending: Sara Marshall MD A time-out was completed verifying correct patient, procedure, site, positioning, and special equipment if applicable. The patient was placed in a dependent position appropriate for central line placement based on the vein to be cannulated. The patients right neck was prepped and draped in sterile fashion. 1% Lidocaine was used to anesthetize the surrounding skin area. A triple lumen 7-Lith[place] Cordis catheter was introduced into the the internal jugular using the Seldinger technique and under ultrasound guidance. The catheter was threaded smoothly over the guide wire and appropriate blood return was obtained. Each lumen of the catheter was evacuated of air and flushed with sterile saline. The catheter was then sutured in place to the skin and a sterile dressing applied. Perfusion to the extremity distal to the point of catheter insertion was checked and found to be adequate. Estimated Blood Loss: 15mL The patient tolerated the procedure well and there were no complications.
[2019-08-25] MEDS: Pantoprazole 40 MG Vial IVPUSH SCH ×2 (08:31→20:01)
[2019-08-25] MEDS ORDERED: Sodium Chloride 0.9% 500 ML ONE (08:57)
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
--- NOTE | 2019-08-25 09:28 | CR ---
Chest: February the upright view of the chest was obtained. Comparison: Prior chest x-ray of 08/24/19. Heart size and mediastinum are normal. Right jugular line is seen. Tip lies within the superior vena cava. Nasogastric tube is seen coiled within the stomach. Endotracheal tube is stable with tip lying at the level of the clavicles. Lungs remain clear. Impression: 1. Right jugular line is now seen with tip lying within the superior vena cava. 2. No pneumothorax is seen. 2. Stable position of endotracheal tube and nasogastric tube Diagnostic code #2 This report was dictated in MDT
--- NOTE | 2019-08-25 09:36 | PCM.PRNOTE ---
- Free Text/Narrative Note: ARTERIAL LINE PLACEMENT Date: 08/25/2019 Time: 9:15 AM Indication: Hemodynamic monitoring Attending: Sara Marshall MD A time-out was completed verifying correct patient, procedure, site, positioning, and special equipment if applicable. Allens test was performed to ensure adequate perfusion. The patients right wrist was prepped and draped in sterile fashion. A 20G [place] arterial line was introduced into the radial artery. The catheter was threaded over the guide wire and the needle was removed with appropriate pulsatile blood return. The catheter was then sutured in place to the skin and a sterile dressing applied. Perfusion to the extremity distal to the point of catheter insertion was checked and found to be adequate. Estimated Blood Loss: 5-10mL The patient tolerated the procedure well and there were no complications.
[2019-08-25] MEDS: Nicotine 21 MG/24 Hr Patch TRDERM SCH ×2 (11:45)
[2019-08-25] MEDS: REMOVE TRDERM SCH (11:46)
[2019-08-25] MEDS: [UNRECOGNIZED DRUG - OTHER] TRDERM SCH (11:46)
[2019-08-25] MEDS: Folic Acid 50 MG/10 ML MDV IV SCH (11:46)
[2019-08-25] MEDS: Potassium Chloride 10 MEQ in Premix Bag 1 BAG IV SCH ×4 (11:48→14:50)
[2019-08-25] MEDS: fentaNYL 2,500 MCG in Sodium Chloride 0.9% 200 ML IV SCH (12:00)
[2019-08-25] MEDS: Thiamine 200 MG/2 ML MDV IVPUSH SCH (12:04)
[2019-08-25] MEDS ORDERED: Sodium Chloride 0.9% 500 ML IV SCH (12:15)
[2019-08-25] MEDS: QUEtiapine 25 MG Tab PO SCH (20:01)
[2019-08-26] MEDS: propofoL 100 ML IV SCH ×5 (00:15→23:53)
[2019-08-26] MEDS: Lactated Ringers 1,000 ML IV SCH (02:15)
[2019-08-26] MEDS: fentaNYL 2,500 MCG in Sodium Chloride 0.9% 200 ML IV SCH ×2 (04:05→17:19)
[2019-08-26] MEDS ORDERED: Dextrose 5%-0.45% NaCl 1,000 ML IV SCH ×2 (08:15→13:15)
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
[2019-08-26] MEDS: Nicotine 21 MG/24 Hr Patch TRDERM SCH (08:59)
[2019-08-26] MEDS: [UNRECOGNIZED DRUG - OTHER] TRDERM SCH (08:59)
[2019-08-26] MEDS: Pantoprazole 40 MG Vial IVPUSH SCH ×2 (08:59→20:10)
[2019-08-26] MEDS: REMOVE TRDERM SCH (08:59)
[2019-08-26] MEDS ORDERED: Magnesium Sulfate/Water 4 GM in Premix Bag 1 BAG IV ONE (09:00)
[2019-08-26] MEDS: Norepinephrine 4 MG in Dextrose 5% in Water 246 ML IV SCH ×4 (09:02→16:21)
[2019-08-26] MEDS: Thiamine 200 MG/2 ML MDV IVPUSH SCH (09:06)
[2019-08-26] MEDS: Folic Acid 50 MG/10 ML MDV IV SCH (09:26)
[2019-08-26] MEDS ORDERED: 50% Dextrose in Water 50 ML Syringe IVPUSH PRN (11:41)
[2019-08-26] MEDS: Acetaminophen 650 MG Supp RECTAL PRN (19:50)
[2019-08-26] MEDS: cefTRIAXone 2 GM in Sodium Chloride 0.9% 100 ML IV SCH (22:04)
[2019-08-27] MEDS: Acetaminophen 650 MG Supp RECTAL PRN ×2 (03:29→23:15)
[2019-08-27] MEDS: propofoL 100 ML IV SCH ×4 (04:16→21:54)
[2019-08-27] MEDS: fentaNYL 2,500 MCG in Sodium Chloride 0.9% 200 ML IV SCH ×2 (05:57→18:37)
[2019-08-27] MEDS ORDERED: Magnesium Sulfate/Water 4 GM in Premix Bag 1 BAG IV ONE (08:04)
[2019-08-27] MEDS: Folic Acid 50 MG/10 ML MDV IV SCH (08:24)
[2019-08-27] MEDS: Nicotine 21 MG/24 Hr Patch TRDERM SCH (08:25)
[2019-08-27] MEDS: Pantoprazole 40 MG Vial IVPUSH SCH ×2 (08:25→21:42)
[2019-08-27] MEDS: [UNRECOGNIZED DRUG - OTHER] TRDERM SCH (08:31)
[2019-08-27] MEDS: REMOVE TRDERM SCH (08:31)
[2019-08-27] MEDS: Thiamine 200 MG/2 ML MDV IVPUSH SCH (08:31)
[2019-08-27] MEDS ORDERED: Magnesium Oxide 400 MG Tab OGTUBE SCH (09:00)
[2019-08-27] MEDS ORDERED: Enoxaparin 40 MG/0.4 ML Syringe SUBCUT SCH (09:45)
--- NOTE | 2019-08-27 10:53 | CR ---
Chest: AP view of the chest is obtained. Comparison: Prior chest x-ray of 08/25/19. Endotracheal tube is again seen. Tip lies at the lower level of the clavicles in satisfactory position. Nasogastric tube is slightly coiled within the stomach. Right jugular line is seen with tip lying within the superior vena cava. Lungs are clear with no acute parenchymal change. Heart size and mediastinum are within normal limits. Bony structures are unremarkable. Impression: 1. Satisfactory position of tubes and catheters. 2. Nothing acute is seen on frontal chest x-ray. Diagnostic code #2 Study was dictated in MDT
--- NOTE | 2019-08-27 11:27 | PCM.PN ---
- General Info Date of Service: 08/27/19 Admission Dx/Problem (Free Text): Admission Diagnosis/Problem Admission Diagnosis/Problem Pancreatitis Subjective Update: INTERVAL HISTORY Overnight Events * Fever over 101 Blood cultures, urine culture done. Started on Rocephin. VS * HR 56-89 * MAP is greater than 65 * Tm 101.7 * SaO2: > 92% I/Os * UO last 24 hours 2,240 * Balance since admission +6,888 * BM 08/23 Diet * Vital AF 70 ml/h Lines and tubes * Aguayo catheter 08/24/2019 * ETT 08/24/2019 * Central line 08/25/2019 * Arterial line 08/25/2019 Ventilator settings * AC/VC, VT 400, RR 12, FiO2 26%, PEEP 8, PSV 10, * Plateau pressure 14 * Peak pressure 17 Fluids and drips * Fentanyl 3.12 mcg/kg/h * Propofol 40 mcg/kg/min * Medazepam 10 mg/h * Norepinephrine off * Vital AF 70 ml/h - Patient Data Vitals - Most Recent: Last Vital Signs Temp 96.4 F L 08/27/19 10:59 Pulse 56 L 08/27/19 08:00 Resp 12 08/27/19 10:59 BP 99/56 L 08/27/19 10:59 Pulse Ox 97 08/27/19 10:59 Weight - Most Recent: 64.4 kg I&O - Last 24 Hours: Intake & Output 08/26/19 08/27/19 08/27/19 22:59 06:59 14:59 Intake Total 1540 2123 245 Output Total 430 1100 1100 Balance 1110 1023 -855 Lab Results Last 24 Hours: Laboratory Results - last 24 hr 08/26/19 08/26/19 08/26/19 Range/Units 11:39 12:09 17:26 WBC (4.23-9.07) K/mm3 RBC (4.63-6.08) M/mm3 Hgb (13.7-17.5) gm/dl Hct (40.1-51.0) % MCV (79.0-92.2) fl MCH (25.7-32.2) pg MCHC (32.2-35.5) g/dl RDW Std Deviation (35.1-43.9) fL Plt Count (163-337) K/mm3 MPV (9.4-12.3) fl Neut % (Auto) (34.0-67.9) % Lymph % (Auto) (21.8-53.1) % [place] % (Auto) (5.3-12.2) % Eos % (Auto) (0.8-7.0) Baso % (Auto) (0.1-1.2) % Neut # (Auto) (1.78-5.38) K/mm3 Lymph # (Auto) (1.32-3.57) K/mm3 [place] # (Auto) (0.30-0.82) K/mm3 Eos # (Auto) (0.04-0.54) K/mm3 Baso # (Auto) (0.01-0.08) K/mm3 Manual Slide Review Sodium (136-145) mEq/L Potassium (3.5-5.1) mEq/L Chloride (98-107) mEq/L Carbon Dioxide (21-32) mEq/L Anion Gap (5-15) BUN (7-18) mg/dL Creatinine (0.7-1.3) mg/dL Est Cr Clr Drug Dosing mL/min Estimated GFR (MDRD) (>60) mL/min BUN/Creatinine Ratio (14-18) Glucose (74-106) mg/dL POC Glucose 69 L 112 H 118 H (70-105) mg/dL Calcium (8.5-10.1) mg/dL Phosphorus (2.6-4.7) mg/dL Magnesium (1.8-2.4) mg/dl Total Bilirubin (0.2-1.0) mg/dL AST (15-37) U/L ALT (16-63) U/L Alkaline Phosphatase (46-116) U/L C-Reactive Protein (<1.0) mg/dL Total Protein (6.4-8.2) g/dl Albumin (3.4-5.0) g/dl Globulin gm/dL Albumin/Globulin Ratio (1-2) Triglycerides (<150) mg/dL Lipase (73-393) U/L Urine Color (Yellow) Urine Appearance (Clear) Urine pH (5.0-8.0) Ur Specific [place] (1.005-1.030) Urine Protein (Negative) Urine Glucose (UA) (Negative) Urine Ketones (Negative) Urine Occult Blood (Negative) Urine Nitrite (Negative) Urine Bilirubin (Negative) Urine Urobilinogen (0.2-1.0) Ur Leukocyte Esterase (Negative) U Hyaline Cast (Auto) (0-5) /lpf Urine RBC (0-5) /hpf Urine WBC (0-5) /hpf Urine WBC Clumps (NOT SEEN) /hpf Ur Epithelial Cells (0-5) /hpf Urine Bacteria (FEW) /hpf Urine Mucus (FEW) /hpf SARS Virus RNA (PCR) (NEGATIVE) 08/26/19 08/26/19 08/27/19 Range/Units 21:16 23:58 04:40 WBC 6.04 (4.23-9.07) K/mm3 RBC 3.95 L (4.63-6.08) M/mm3 Hgb 11.4 L (13.7-17.5) gm/dl Hct 36.7 L (40.1-51.0) % MCV 92.9 H (79.0-92.2) fl MCH 28.9 (25.7-32.2) pg MCHC 31.1 L (32.2-35.5) g/dl RDW Std Deviation 48.6 H (35.1-43.9) fL Plt Count 95 L (163-337) K/mm3 MPV 11.1 (9.4-12.3) fl Neut % (Auto) 62.2 (34.0-67.9) % Lymph % (Auto) 19.4 L (21.8-53.1) % [place] % (Auto) 14.4 H (5.3-12.2) % Eos % (Auto) 3.6 (0.8-7.0) Baso % (Auto) 0.2 (0.1-1.2) % Neut # (Auto) 3.76 (1.78-5.38) K/mm3 Lymph # (Auto) 1.17 L (1.32-3.57) K/mm3 [place] # (Auto) 0.87 H (0.30-0.82) K/mm3 Eos # (Auto) 0.22 (0.04-0.54) K/mm3 Baso # (Auto) 0.01 (0.01-0.08) K/mm3 Manual Slide Review Abnormal smear Sodium (136-145) mEq/L Potassium (3.5-5.1) mEq/L Chloride (98-107) mEq/L Carbon Dioxide (21-32) mEq/L Anion Gap (5-15) BUN (7-18) mg/dL Creatinine (0.7-1.3) mg/dL Est Cr Clr Drug Dosing mL/min Estimated GFR (MDRD) (>60) mL/min BUN/Creatinine Ratio (14-18) Glucose (74-106) mg/dL POC Glucose 115 H (70-105) mg/dL Calcium (8.5-10.1) mg/dL Phosphorus (2.6-4.7) mg/dL Magnesium (1.8-2.4) mg/dl Total Bilirubin (0.2-1.0) mg/dL AST (15-37) U/L ALT (16-63) U/L Alkaline Phosphatase (46-116) U/L C-Reactive Protein (<1.0) mg/dL Total Protein (6.4-8.2) g/dl Albumin (3.4-5.0) g/dl Globulin gm/dL Albumin/Globulin Ratio (1-2) Triglycerides (<150) mg/dL Lipase (73-393) U/L Urine Color Yellow (Yellow) Urine Appearance Clear (Clear) Urine pH 6.0 (5.0-8.0) Ur Specific [place] 1.020 (1.005-1.030) Urine Protein 2+ H (Negative) Urine Glucose (UA) Negative (Negative) Urine Ketones Negative (Negative) Urine Occult Blood 2+ H (Negative) Urine Nitrite Negative (Negative) Urine Bilirubin 1+ H (Negative) Urine Urobilinogen 1.0 (0.2-1.0) Ur Leukocyte Esterase 1+ H (Negative) U Hyaline Cast (Auto) 0-5 (0-5) /lpf Urine RBC 0-5 (0-5) /hpf Urine WBC 5-10 H (0-5) /hpf Urine WBC Clumps Rare (NOT SEEN) /hpf Ur Epithelial Cells Not seen (0-5) /hpf Urine Bacteria Many H (FEW) /hpf Urine Mucus Few (FEW) /hpf SARS Virus RNA (PCR) (NEGATIVE) 08/27/19 08/27/19 08/27/19 Range/Units 04:40 04:40 06:07 WBC (4.23-9.07) K/mm3 RBC (4.63-6.08) M/mm3 Hgb (13.7-17.5) gm/dl Hct (40.1-51.0) % MCV (79.0-92.2) fl MCH (25.7-32.2) pg MCHC (32.2-35.5) g/dl RDW Std Deviation (35.1-43.9) fL Plt Count (163-337) K/mm3 MPV (9.4-12.3) fl Neut % (Auto) (34.0-67.9) % Lymph % (Auto) (21.8-53.1) % [place] % (Auto) (5.3-12.2) % Eos % (Auto) (0.8-7.0) Baso % (Auto) (0.1-1.2) % Neut # (Auto) (1.78-5.38) K/mm3 Lymph # (Auto) (1.32-3.57) K/mm3 [place] # (Auto) (0.30-0.82) K/mm3 Eos # (Auto) (0.04-0.54) K/mm3 Baso # (Auto) (0.01-0.08) K/mm3 Manual Slide Review Sodium 142 (136-145) mEq/L Potassium 3.5 (3.5-5.1) mEq/L Chloride 105 (98-107) mEq/L Carbon Dioxide 31 (21-32) mEq/L Anion Gap 9.5 (5-15) BUN 5 L (7-18) mg/dL Creatinine 0.7 (0.7-1.3) mg/dL Est Cr Clr Drug Dosing 132.89 mL/min Estimated GFR (MDRD) > 60 (>60) mL/min BUN/Creatinine Ratio 7.1 L (14-18) Glucose 125 H (74-106) mg/dL POC Glucose 120 H (70-105) mg/dL Calcium 8.3 L (8.5-10.1) mg/dL Phosphorus 3.4 (2.6-4.7) mg/dL Magnesium 1.3 L (1.8-2.4) mg/dl Total Bilirubin 0.6 (0.2-1.0) mg/dL AST 297 H (15-37) U/L ALT 72 H (16-63) U/L Alkaline Phosphatase 114 (46-116) U/L C-Reactive Protein 7.9 H* (<1.0) mg/dL Total Protein 5.4 L (6.4-8.2) g/dl Albumin 2.1 L (3.4-5.0) g/dl Globulin 3.3 gm/dL Albumin/Globulin Ratio 0.6 L (1-2) Triglycerides 149 (<150) mg/dL Lipase 435 H (73-393) U/L Urine Color (Yellow) Urine Appearance (Clear) Urine pH (5.0-8.0) Ur Specific [place] (1.005-1.030) Urine Protein (Negative) Urine Glucose (UA) (Negative) Urine Ketones (Negative) Urine Occult Blood (Negative) Urine Nitrite (Negative) Urine Bilirubin (Negative) Urine Urobilinogen (0.2-1.0) Ur Leukocyte Esterase (Negative) U Hyaline Cast (Auto) (0-5) /lpf Urine RBC (0-5) /hpf Urine WBC (0-5) /hpf Urine WBC Clumps (NOT SEEN) /hpf Ur Epithelial Cells (0-5) /hpf Urine Bacteria (FEW) /hpf Urine Mucus (FEW) /hpf SARS Virus RNA (PCR) (NEGATIVE) 08/27/19 Range/Units 08:30 WBC (4.23-9.07) K/mm3 RBC (4.63-6.08) M/mm3 Hgb (13.7-17.5) gm/dl Hct (40.1-51.0) % MCV (79.0-92.2) fl MCH (25.7-32.2) pg MCHC (32.2-35.5) g/dl RDW Std Deviation (35.1-43.9) fL Plt Count (163-337) K/mm3 MPV (9.4-12.3) fl Neut % (Auto) (34.0-67.9) % Lymph % (Auto) (21.8-53.1) % [place] % (Auto) (5.3-12.2) % Eos % (Auto) (0.8-7.0) Baso % (Auto) (0.1-1.2) % Neut # (Auto) (1.78-5.38) K/mm3 Lymph # (Auto) (1.32-3.57) K/mm3 [place] # (Auto) (0.30-0.82) K/mm3 Eos # (Auto) (0.04-0.54) K/mm3 Baso # (Auto) (0.01-0.08) K/mm3 Manual Slide Review Sodium (136-145) mEq/L Potassium (3.5-5.1) mEq/L Chloride (98-107) mEq/L Carbon Dioxide (21-32) mEq/L Anion Gap (5-15) BUN (7-18) mg/dL Creatinine (0.7-1.3) mg/dL Est Cr Clr Drug Dosing mL/min Estimated GFR (MDRD) (>60) mL/min BUN/Creatinine Ratio (14-18) Glucose (74-106) mg/dL POC Glucose (70-105) mg/dL Calcium (8.5-10.1) mg/dL Phosphorus (2.6-4.7) mg/dL Magnesium (1.8-2.4) mg/dl Total Bilirubin (0.2-1.0) mg/dL AST (15-37) U/L ALT (16-63) U/L Alkaline Phosphatase (46-116) U/L C-Reactive Protein (<1.0) mg/dL Total Protein (6.4-8.2) g/dl Albumin (3.4-5.0) g/dl Globulin gm/dL Albumin/Globulin Ratio (1-2) Triglycerides (<150) mg/dL Lipase (73-393) U/L Urine Color (Yellow) Urine Appearance (Clear) Urine pH (5.0-8.0) Ur Specific [place] (1.005-1.030) Urine Protein (Negative) Urine Glucose (UA) (Negative) Urine Ketones (Negative) Urine Occult Blood (Negative) Urine Nitrite (Negative) Urine Bilirubin (Negative) Urine Urobilinogen (0.2-1.0) Ur Leukocyte Esterase (Negative) U Hyaline Cast (Auto) (0-5) /lpf Urine RBC (0-5) /hpf Urine WBC (0-5) /hpf Urine WBC Clumps (NOT SEEN) /hpf Ur Epithelial Cells (0-5) /hpf Urine Bacteria (FEW) /hpf Urine Mucus (FEW) /hpf SARS Virus RNA (PCR) Negative (NEGATIVE) [facility] Results Last 24 Hours: Microbiology 08/26/19 21:50 Anaerobic Blood Culture - Final Blood - Venous Med Orders - Current: Current Medications Acetaminophen (Tylenol) 650 mg RECTAL Q6H PRN PRN Reason: Fever Last Admin: 08/27/19 03:29 Dose: 650 mg Documented by: Dextrose/Water (Dextrose 50% In Water) 50 ml IVPUSH ASDIRECTED PRN PRN Reason: Hypoglycemia Last Admin: 08/26/19 11:55 Dose: 25 ml Documented by: Enoxaparin Sodium (Lovenox) 40 mg SUBCUT DAILY B[facility] Folic Acid (Folic Acid) 1 mg IV DAILY B[facility] Last Admin: 08/27/19 08:24 Dose: 1 mg Documented by: Haloperidol Lactate (Haldol) 2 mg IVPUSH Q2H PRN PRN Reason: Withdrawal Symptoms Last Admin: 08/24/19 21:53 Dose: 2 mg Documented by: Hydralazine HCl (Apresoline) 10 mg IVPUSH Q2H PRN PRN Reason: Hypertension Fentanyl 2,500 mcg/ Sodium (Chloride) 250 mls @ 6.41 mls/hr IV TITRATE BART; Protocol Last Admin: 08/27/19 05:57 Dose: 3.12 mcg/kg/hr, 20 mls/hr Documented by: Propofol (Diprivan 100 Ml) 100 mls @ 1.929 mls/hr IV TITRATE BART; Protocol Last Admin: 08/27/19 10:57 Dose: 40 mcg/kg/min, 15.432 mls/hr Documented by: Norepinephrine Bitartrate 4 mg (/ Dextrose/Water) 250 mls @ 7.5 mls/hr IV TITRATE BART; Protocol Last Titration: 08/26/19 23:54 Dose: 0 mcg/min, 0 mls/hr Documented by: Sodium Chloride (Normal Saline) 500 mls @ 5 mls/hr IV ASDIRECTED BART Last Admin: 08/25/19 09:00 Dose: 5 mls/hr Documented by: Midazolam HCl 100 mg/ Sodium (Chloride) 100 mls @ 10 mls/hr IV TITRATE BART; Protocol Last Titration: 08/27/19 10:14 Dose: 10 mls/hr, 10 mls/hr Documented by: Dextrose/Sodium Chloride (Dextrose 5%-1/2 Ns) 1,000 mls @ 40 mls/hr IV ASDIRECTED [facility] Last Admin: 08/27/19 04:12 Dose: 40 mls/hr Documented by: Ceftriaxone Sodium 2 gm/ (Sodium Chloride) 100 mls @ 200 mls/hr IV Q24H [facility] Last Admin: 08/26/19 22:04 Dose: 200 mls/hr Documented by: Magnesium Sulfate 4 gm/ Premix 50 mls @ 12.5 mls/hr IV ONETIME ONE Stop: 08/27/19 12:03 Last Admin: 08/27/19 08:24 Dose: 12.5 mls/hr Documented by: Lorazepam (Ativan) 0 mg IVPUSH ASDIRECTED PRN; Protocol PRN Reason: Withdrawal Symptoms Last Admin: 08/24/19 22:06 Dose: 3 mg Documented by: Miscellaneous Information (Remove Patch) 21 ea TRDERM DAILY [facility] Last Admin: 08/27/19 08:31 Dose: 21 ea Documented by: Nicotine (Habitrol) 21 mg TRDERM DAILY [facility] Last Admin: 08/27/19 08:25 Dose: 21 mg Documented by: Ondansetron HCl (Zofran) 4 mg IVPUSH Q6H PRN PRN Reason: Nausea Last Admin: 08/24/19 12:15 Dose: 4 mg Documented by: Pantoprazole Sodium (Protonix Iv) 40 mg IVPUSH Q12H [facility] Last Admin: 08/27/19 08:25 Dose: 40 mg Documented by: Quetiapine Fumarate (Seroquel) 75 mg PO BEDTIME [facility] Last Admin: 08/25/19 20:01 Dose: 75 mg Documented by: Thiamine HCl (Vitamin B-1) 100 mg IVPUSH DAILY [facility] Last Admin: 08/27/19 08:31 Dose: 100 mg Documented by: Discontinued Medications Enoxaparin Sodium (Lovenox) 40 mg SUBCUT DAILY [facility] Etomidate (Amidate) 40 mg IVPUSH .STK-MED ONE Stop: 08/24/19 23:01 Haloperidol Lactate (Haldol) Confirm Administered Dose 5 mg .ROUTE .STK-MED ONE Stop: 08/24/19 21:53 Last Admin: 08/24/19 23:25 Dose: Not Given Documented by: Hydromorphone HCl (Dilaudid) 0.5 mg IVPUSH ONETIME ONE Stop: 08/22/19 21:28 Last Admin: 08/22/19 21:37 Dose: 0.5 mg Documented by: Hydromorphone HCl (Dilaudid) 0.5 mg IVPUSH Q3H PRN PRN Reason: Pain Last Admin: 08/23/19 06:44 Dose: 0.5 mg Documented by: Lactated Ringer's (Ringers, Lactated) 1,000 mls @ 150 mls/hr IV ASDIRECTED [facility] Last Infusion: 08/25/19 14:24 Dose: Infused Documented by: Lactated Ringer's (Ringers, Lactated) 500 mls @ 999 mls/hr IV .BOLUS ONE Stop: 08/22/19 22:16 Last Admin: 08/23/19 01:13 Dose: Not Given Documented by: Magnesium Sulfate 2 gm/ Premix 50 mls @ 25 mls/hr IV ONETIME ONE Stop: 08/23/19 01:06 Last Admin: 08/22/19 23:20 Dose: 25 mls/hr Documented by: Thiamine HCl 1,000 mg/Magnesium Sulfate 4 gm/ Folic Acid 1 mg/ Dextrose/Sodium Chloride 1,018.2 mls @ 125 mls/hr IV Q24H [facility] Stop: 08/24/19 21:00 Last Admin: 08/24/19 10:34 Dose: 125 mls/hr Documented by: Midazolam HCl 100 mg/ Sodium (Chloride) 100 mls @ 2 mls/hr IV TITRATE BART; Protocol Last Admin: 08/24/19 23:24 Dose: 7 mg/hr, 7 mls/hr Documented by: Sodium Chloride (Normal Saline) Confirm Administered Dose 100 mls @ as directed .ROUTE .STK-MED ONE Stop: 08/24/19 23:14 Last Admin: 08/24/19 23:25 Dose: Not Given Documented by: Midazolam HCl 100 mg/ Sodium (Chloride) 100 mls @ 2 mls/hr IV TITRATE BART; Protocol Last Titration: 08/25/19 04:13 Dose: 15 mg/hr, 15 mls/hr Documented by: Midazolam HCl 100 mg/ Premix 100 mls @ 2 mls/hr IV ONETIME BART; Protocol Stop: 08/25/19 18:00 Last Titration: 08/25/19 16:00 Dose: 15 mg/hr, 15 mls/hr Documented by: Propofol (Diprivan 100 Ml) Confirm Administered Dose 100 mls @ as directed .ROUTE .STK-MED ONE Stop: 08/25/19 07:18 Last Admin: 08/25/19 07:57 Dose: Not Given Documented by: Propofol (Diprivan 100 Ml) Confirm Administered Dose 100 mls @ as directed .ROUTE .STK-MED ONE Stop: 08/25/19 07:23 Last Admin: 08/25/19 07:57 Dose: Not Given Documented by: Magnesium Sulfate 4 gm/ Premix 50 mls @ 12.5 mls/hr IV ONETIME ONE Stop: 08/25/19 11:30 Last Admin: 08/25/19 11:51 Dose: 12.5 mls/hr Documented by: Potassium Chloride 10 meq/ (Premix) 100 mls @ 100 mls/hr IV Q1H [facility] Stop: 08/25/19 11:44 Last Admin: 08/25/19 14:50 Dose: 100 mls/hr Documented by: Sodium Chloride (Normal Saline) Confirm Administered Dose 500 mls @ as directed .ROUTE .STK-MED ONE Stop: 08/25/19 08:58 Last Admin: 08/25/19 12:18 Dose: Not Given Documented by: Lactated Ringer's (Ringers, Lactated) 1,000 mls @ 100 mls/hr IV ASDIRECTED [facility] Last Admin: 08/26/19 02:15 Dose: 100 mls/hr Documented by: Dextrose/Sodium Chloride (Dextrose 5%-1/2 Ns) 1,000 mls @ 75 mls/hr IV ASDIRECTED [facility] Last Infusion: 08/26/19 13:30 Dose: 40 mls/hr Documented by: Magnesium Sulfate 4 gm/ Premix 50 mls @ 12.5 mls/hr IV ONETIME ONE Stop: 08/26/19 12:59 Last Admin: 08/26/19 09:12 Dose: 12.5 mls/hr Documented by: Ketamine HCl (Ketalar) 500 mg .ROUTE .STK-MED ONE Stop: 08/24/19 23:01 Labetalol HCl (Normodyne) 10 mg IVPUSH ONETIME STA; Protocol Stop: 08/24/19 23:11 Last Admin: 08/24/19 23:59 Dose: Not Given Documented by: Lorazepam (Ativan) 4 mg IVPUSH ONETIME ONE Stop: 08/23/19 11:27 Last Admin: 08/23/19 11:26 Dose: 4 mg Documented by: Lorazepam (Ativan) 1 mg IVPUSH Q6H PRN PRN Reason: Agitation Stop: 08/26/19 11:45 Last Admin: 08/24/19 08:37 Dose: 1 mg Documented by: Lorazepam (Ativan) 2 mg IVPUSH ONETIME ONE Stop: 08/24/19 12:34 Last Admin: 08/24/19 12:41 Dose: 2 mg Documented by: Lorazepam (Ativan) 2 mg IVPUSH ONETIME ONE Stop: 08/24/19 13:34 Last Admin: 08/24/19 13:26 Dose: 2 mg Documented by: Lorazepam (Ativan) 1 mg IVPUSH Q4H [facility] Stop: 08/25/19 13:31 Lorazepam (Ativan) 2 mg IVPUSH ONETIME ONE Stop: 08/24/19 16:54 Last Admin: 08/24/19 16:58 Dose: 2 mg Documented by: Lorazepam (Ativan) Confirm Administered Dose 2 mg .ROUTE .STK-MED ONE Stop: 08/24/19 16:58 Last Admin: 08/24/19 17:01 Dose: Not Given Documented by: Lorazepam (Ativan) 2 mg IVPUSH ONETIME ONE Stop: 08/24/19 18:01 Last Admin: 08/24/19 17:55 Dose: 2 mg Documented by: Lorazepam (Ativan) Confirm Administered Dose 2 mg .ROUTE .STK-MED ONE Stop: 08/24/19 19:26 Last Admin: 08/24/19 19:30 Dose: Not Given Documented by: Lorazepam (Ativan) 2 mg IVPUSH ONETIME ONE Stop: 08/24/19 19:26 Last Admin: 08/24/19 19:30 Dose: 2 mg Documented by: Magnesium Oxide (Magnesium Oxide) 400 mg OGTUBE BID [facility] Last Admin: 08/27/19 08:25 Dose: 400 mg Documented by: Meperidine HCl (Meperidine) 50 mg IVPUSH Q6H PRN PRN Reason: Pain (severe 7-10) Last Admin: 08/24/19 17:58 Dose: 50 mg Documented by: Midazolam HCl (Versed 1 Mg/Ml) 10 mg .ROUTE .STK-MED ONE Stop: 08/24/19 23:01 Nicotine (Habitrol) 21 mg TRDERM Q24H [facility] Nicotine (Habitrol) 21 mg TRDERM DAILY [facility] Last Admin: 08/25/19 11:45 Dose: 21 mg Documented by: Norepinephrine Bitartrate (Levophed) Confirm Administered Dose 4 mg .ROUTE .STK- MED ONE Stop: 08/25/19 07:30 Last Admin: 08/25/19 07:57 Dose: Not Given Documented by: Ondansetron HCl (Zofran) 4 mg IVPUSH ONETIME ONE Stop: 08/22/19 21:28 Last Admin: 08/22/19 21:37 Dose: 4 mg Documented by: Potassium Chloride (Klor-Con M20) 40 meq PO ONETIME ONE Stop: 08/22/19 23:08 Last Admin: 08/22/19 23:20 Dose: 40 meq Documented by: Propofol (Diprivan 20 Ml) 200 mg IVPUSH ONETIME ONE Stop: 08/25/19 07:21 Last Admin: 08/25/19 07:20 Dose: 200 mg Documented by: Propofol (Diprivan 20 Ml) 400 mg .ROUTE .STK-MED ONE Stop: 08/24/19 23:01 Succinylcholine Chloride (Quelicin) 400 mg .ROUTE .STK-MED ONE Stop: 08/24/19 23:01 - Exam Quality Assessment: Supplemental Oxygen, Central Line/PICC, Urine Catheter, DVT Prophylaxis General: Sedated HEENT: Pupils Equal, Mucous Membr. Moist/Hydro Neck: Supple Lungs: Clear to Auscultation, Normal Respiratory Effort Cardiovascular: Regular Rate, Regular Rhythm GI/Abdominal Exam: Normal Bowel Sounds, Soft, Non-Tender, No Organomegaly, No Distention, No Abnormal Bruit Extremities: Normal Inspection, Normal Range of Motion, Non-Tender, No Pedal Edema, Normal Capillary Refill Skin: Warm, Dry, Intact Sepsis Event Note - Evaluation Sepsis Screening Result: No Definite Risk - Focused Exam Vital Signs: Vital Signs Temp Temp Temp Temp Pulse Resp BP 08/27/19 10:59 96.4 F L 12 99/56 L 08/27/19 10:00 102/56 L 08/27/19 09:00 131/68 08/27/19 08:12 08/27/19 08:00 97.2 F 12 96/72 08/27/19 07:00 98/66 08/27/19 06:24 12 08/27/19 06:00 99.1 F 66 12 119/58 L 08/27/19 05:25 100.2 F 08/27/19 05:12 100.6 F 08/27/19 05:00 100.8 F H 74 12 113/55 L 08/27/19 04:52 100.9 F H 08/27/19 04:35 101.5 F H 97.4 F 08/27/19 04:30 12 08/27/19 04:00 101.7 F H 77 12 117/58 L 08/27/19 03:59 101.3 F H 08/27/19 03:29 101.1 F H 08/27/19 02:54 100.9 F H 81 12 113/55 L 08/27/19 02:09 12 08/27/19 02:00 100.8 F H 73 12 119/61 08/27/19 00:52 100.4 F 75 12 117/61 08/27/19 00:07 12 08/26/19 23:39 100.8 F H 76 12 117/63 Pulse Ox Pulse Ox 08/27/19 10:59 97 08/27/19 10:00 08/27/19 09:00 08/27/19 08:12 99 08/27/19 08:00 97 08/27/19 07:00 08/27/19 06:24 96 08/27/19 06:00 99 08/27/19 05:25 08/27/19 05:12 08/27/19 05:00 97 08/27/19 04:52 08/27/19 04:35 08/27/19 04:30 97 08/27/19 04:00 97 08/27/19 03:59 08/27/19 03:29 08/27/19 02:54 94 L 08/27/19 02:09 98 08/27/19 02:00 99 08/27/19 00:52 97 08/27/19 00:07 96 08/26/19 23:39 97 Date Exam was Performed: 08/27/19 Time Exam was Performed: 12:33 - Problem List & Annotations (1) Alcohol withdrawal SNOMED Code(s): 524813251 Code(s): F10.239 - ALCOHOL DEPENDENCE WITH WITHDRAWAL, UNSPECIFIED Status: Acute Priority: High Current Visit: Yes Qualifiers: Complication of substance-induced condition: with delirium Qualified Code(s): F10.231 - Alcohol dependence with withdrawal delirium (2) Hypomagnesemia SNOMED Code(s): 103995241 Code(s): E83.42 - HYPOMAGNESEMIA Status: Acute Priority: High Current Visit: Yes (3) Chronic alcoholic pancreatitis SNOMED Code(s): 226169100 Code(s): K86.0 - ALCOHOL-INDUCED CHRONIC PANCREATITIS Status: Chronic Priority: High Current Visit: Yes (4) Thrombocytopenia concurrent with and due to alcoholism SNOMED Code(s): 78582201561210 Code(s): D69.59 - OTHER SECONDARY THROMBOCYTOPENIA; F10.20 - ALCOHOL DEPENDENCE, UNCOMPLICATED Status: Acute Current Visit: Yes (5) Fever SNOMED Code(s): 049895265 Code(s): R50.9 - FEVER, UNSPECIFIED Status: Acute Current Visit: Yes - Problem List Review Problem List Initiated/Reviewed/Updated: Yes - My Orders Last 24 Hours: My Active Orders 08/26/19 11:41 Dextrose 50% in Water 50 ml IVPUSH ASDIRECTED PRN 08/26/19 12:36 Enteral Feedings [RC] Q4HR 08/26/19 13:15 Dextrose 5%-0.45% NaCl [Dextrose 5%-1/2 NS] 1,000 ml IV ASDIRECTED 08/26/19 17:45 Acetaminophen [Tylenol] 650 mg RECTAL Q6H PRN 08/26/19 21:00 cefTRIAXone [Rocephin] 2 gm Sodium Chloride 0.9% [Normal Saline] 100 ml IV Q24H 08/26/19 21:15 Blood Culture x2 Reflex Set [OM.PC] Stat 08/26/19 21:16 CULTURE URINE [RM] Stat 08/26/19 21:18 Communication Order [RC] ASDIRECTED 08/26/19 21:30 CULTURE BLOOD [BC] Stat 08/26/19 21:50 CULTURE BLOOD [BC] Stat 08/27/19 04:40 PROCALCITONIN [REF] Routine 08/27/19 08:04 Magnesium Sulfate/Water [Magnesium Sulfate in Water Premix] 4 gm Premix Bag 1 bag IV ONETIME 08/28/19 05:11 CBC WITH AUTO DIFF [HEME] AM CMP [COMPREHENSIVE METABOLIC PN,CMP] [CHEM] AM MAGNESIUM [CHEM] AM PHOSPHORUS [CHEM] AM 08/28/19 09:00 Enoxaparin [Lovenox] 40 mg SUBCUT DAILY 08/29/19 05:11 CBC WITH AUTO DIFF [HEME] AM CMP [COMPREHENSIVE METABOLIC PN,CMP] [CHEM] AM MAGNESIUM [CHEM] AM PHOSPHORUS [CHEM] AM - Assessment Assessment:: Day of admission: Presented to ED twice over 24 hours for abdominal pain History of Methamphetamine, Marijuana, and ETOH abuse Chronic ETOH pancreatitis with multiple ED visits over past few years Last hospitalized 05/25/18-06/08/18 - Very hard detox -> Abusive to staff-> Ativan drip-> Intubated-> Transferred to [place] Labs: - WBC: 3.64 - Hgb: 13.5 - Plt: 85 - Na: 141-->143 - Potassium: 3.4-->3.9 - eGFR: >60 - Magnesium 1.3-->1.7 - Phosphorous 3.3 - AST: 200 - ALT: 64 - Alk Phos: 103 - Lipase: 1134 - Ethyl Alcohol: 0.41 - UDS: Negative 40 mEq potassium given in ED 2gm magnesium given in ED Fatty liver noted on CT scan from 05/28/19 08/24/2019 Remains NPO Reports abdominal pain States he feels like his withdrawal is getting worse CIWA 7-9; Level 1 On room air Reports last ETOH drink was 08/22/19 around 1100 2PPD smoker - nicotine patch ordered LABS - WBC:6.17 - Hgb/HCT 45.4 - Plt: 65 - Sodium: 135 - Potassium: 4.1 - Creatinine: 0.7 - eGFR: >60 - Phosphorous: 2.9 - Magnesium: 1.4 - AST: 115 - ALT: 54 - Alk Phos 117 - Total Bili: 1.4 -Mg Supplemented -Hallucinating in room/confused overnight and this AM 08/25/2019 * Intubated overnight secondary to requiring high doses of benzodiazepines and concern for airway protection * N.p.o. * Patient continued to be aroused even on fentanyl and Versed drip. This required starting propofol in addition. * Labs * WBC 4.71 * Hgb 13.5 * Platelet count 61 * Sodium 139 * Potassium 3.2 * Bicarb 30 * BUN 6 * Creatinine 0.7 * Estimated GFR greater than 60 * Magnesium 1.6 * Total bilirubin 1.2 * AST 89 * ALT 42 * Alkaline phosphatase 95 * Albumin 2.8 08/26/2019 * Continues to be intubated with minimal support * Currently n.p.o., but will initiate tube feeds today * Requiring fentanyl, Versed, and propofol for sedation * Plan to continue mechanical ventilation for the next 24 to 48 hours so patient can get through most of the difficulty time of alcoholic detox. * Patient does become very violent during the weaning and detoxification process. * Thrombocytopenia improving to platelets of 93,000 * Hypomagnesemia, magnesium 1.5. * Lipase down to 518 * Glucose in the 70s * Start D5 half-normal saline until on tube feeds. * Positive fluid balance but no change in weight 08/27/2019 * Continues sedation with mechanical ventilation secondary to severe alcohol withdrawal * Started on Vital AF and at goal of 70 mL/h * Fever (Tm 101.7) overnight with no known source. Line infection must be considered. * COVID negative * Blood cultures and urine cultures done. * UA suggestive of infection * Rocephin 2 g started * Lipase continues to trend down even with starting NG tube feeds * ABG: pH 7.37, PCO2 53, PO2 82, bicarb 29.8, oxygen saturation 94.1%. Increase Vt to 450 * Hypomagnesemia 1.3 * Positive fluid balance without weight gain - Plan Plan:: PLAN BY SYSTEMS Neurology * Sedation with fentanyl, Versed, and propofol * RAAS Goal -3 * Sedation vacation today. * Plan to wean sedation as much as possible with anticipation of extubation tomorrow Respiratory * Aspiration precaution * ETT care by RT * Regular suctioning and oral care Cardiovascular * MAP Goal > 65 * Norepinephrine drip if necessary to keep MAP > 65; DC'd on 08/26/2019 GI and nutrition * OG tube care * Vital AF 70 ml/h Kidney and electrolytes * Strict intake and output monitoring * Daily weights * Maintain neutral fluid balance * Avoid nephrotoxic medications * Monitor electrolytes and replace as needed * Stop IV maintenance fluids Endocrine * Monitor blood sugars Infectious disease * Trend temperature * T-max 101.7 * Pancultured * Continue Rocephin 2 g daily until culture results Hematology and coagulation * Platelets of 61,000-->93,000-->95,000 * Hemoglobin goal > 7 * No active bleeding Musculoskeletal and skin * Bed turn rotation by nursing staff * Daily evaluation for pressure ulcers Prophylaxis * DVT -start Lovenox 40 mg subcu daily. Patient's minimal thrombocytopenia is likely not a significant risk factor for anticoagulation. Risk of VTE is greater than bleeding. * GI -Protonix CODE STATUS * Full code Disposition * Remain in ICU and intubated secondary to severe alcohol withdrawal. Plan extubation tomorrow.
[2019-08-27] MEDS ORDERED: Magnesium Sulfate/Water 2 GM in Premix Bag 1 BAG IV ONE (12:46)
[2019-08-27] MEDS ORDERED: Vancomycin 1.5 GM in Sodium Chloride 0.9% 500 ML IV ONE (17:00)
[2019-08-27] MEDS: cefTRIAXone 2 GM in Sodium Chloride 0.9% 100 ML IV SCH (21:34)
[2019-08-27] MEDS ORDERED: QUEtiapine 25 MG Tab PO SCH (22:56)
[2019-08-28] MEDS: propofoL 100 ML IV SCH (02:09)
[2019-08-28 03:34] VITALS: PULSE 67
[2019-08-28] MEDS: Acetaminophen 650 MG Supp RECTAL PRN (06:32)
[2019-08-28] MEDS: Folic Acid 50 MG/10 ML MDV IV SCH (08:02)
[2019-08-28] MEDS: Pantoprazole 40 MG Vial IVPUSH SCH (08:02)
[2019-08-28] MEDS: Thiamine 200 MG/2 ML MDV IVPUSH SCH (08:02)
[2019-08-28] MEDS ORDERED: Magnesium Sulfate/Water 4 GM in Premix Bag 1 BAG IV ONE (08:02)
[2019-08-28] MEDS: [UNRECOGNIZED DRUG - OTHER] TRDERM SCH (08:03)
[2019-08-28] MEDS: Nicotine 21 MG/24 Hr Patch TRDERM SCH (08:03)
[2019-08-28] MEDS: REMOVE TRDERM SCH (08:03)
[2019-08-28] MEDS ORDERED: Dextrose 5%-Lactated Ringers 1,000 ML IV SCH ×2 (08:15→15:30)
[2019-08-28] MEDS ORDERED: Enoxaparin 40 MG/0.4 ML Syringe SUBCUT SCH (09:00)
[2019-08-28] MEDS: fentaNYL 2,500 MCG in Sodium Chloride 0.9% 200 ML IV SCH (09:55)
--- NOTE | 2019-08-28 10:13 | US ---
Abdominal ultrasound: Multiple real-time images of the abdomen were obtained. Comparison: No prior abdominal ultrasound, prior CT abdomen and pelvis exam of 05/28/19. Technologist's note: Technically difficult exam due to intubation with limited maneuverability and bowel gas Findings: Liver is echogenic compatible with fatty infiltration. No focal abnormality is appreciated within the liver. Gallbladder wall is somewhat thickened. Sludge is noted within the gallbladder. No shadowing gallstones are seen. There is slight increased vascularity within the gallbladder wall. Common bile duct is enlarged measuring up to 8.1 mm. Pancreas is mostly obscured from bowel gas. Focal complicated hypoechoic area is noted posterior to the spleen of uncertain etiology, difficult to exclude abscess. This finding measures around 6.1 cm in greatest dimension. Aorta shows no aneurysm. Kidneys show no hydronephrosis or discrete mass. Right kidney length is 11.1 cm and left kidney length is 11.0 cm. Impression: 1. Sludge within the gallbladder with mild gallbladder wall thickening. Slight inflammatory change within the gallbladder wall is also noted. Difficult to exclude acalculous cholecystitis. Common bile duct also mildly dilated up to 8.1 mm. 2. Mostly obscured pancreas from bowel gas. 3. Questionable complicated fluid collection posterior to the spleen and difficult to exclude abscess. 4. Fatty infiltration within the liver. Diagnostic code #3 Study was dictated in MDT
[2019-08-28] MEDS ORDERED: Iopamidol 612 MG/ML 100 ML Bottle IVPUSH ONE (11:28)
--- NOTE | 2019-08-28 12:14 | CT ---
CT abdomen and pelvis Technique: Multiple axial sections were obtained from above the dome of the diaphragm inferiorly to the pubic symphysis. Intravenous contrast was utilized. Oral contrast has been given. Findings: Small bilateral pleural effusions are noted as well as probable bibasilar atelectasis, worse on the right side. Probable fatty infiltration is seen within the liver. No other focal abnormality appreciated within the liver. Gallbladder is distended. Spleen appears normal in size. No fluid collection is seen posterior to the spleen as suggested on the ultrasound exam. Previous ultrasound finding most likely relates to a partially visualized left pleural effusion causing the finding. Kidneys show symmetric contrast enhancement without hydronephrosis or mass. Adrenal glands show no nodule. Pancreas shows no abnormality. No inflammatory change is seen around the pancreas. Aorta shows no aneurysm. Nasogastric tube is noted within the stomach. No retroperitoneal adenopathy or mesenteric abnormalities are seen. Aguayo catheter noted within the bladder. Air is noted within the bladder presumably from recent instrumentation. Bone window settings were reviewed which shows no acute osseous finding. Delayed images shows contrast excretion from both kidneys into the ureters and bladder. Impression: 1. No abscess is confirmed as questioned on prior study posterior to the spleen. Ultrasound finding most likely represented partial imaging of a pleural effusion. 2. Minimal pleural effusions are seen bilaterally. Focal atelectasis is noted within the right lung base. Lesser atelectasis within the left lung base. 3. Air within the bladder presumably from recent instrumentation from Aguayo catheter placement. 4. Distended gallbladder. 5. No other acute finding is seen. Diagnostic code #3 Study was dictated in MDT
--- NOTE | 2019-08-28 12:48 | PCM.DCSUM1 ---
Discharge Summary - Hospital Course HPI Initial Comments: Yandel Foss is a 38 yo male who presented to our ED twice on 08/22/19 with abdominal pain. On his earlier visit he was found to be hypokalemic and was prescribed oral potassium, which he did not fill. He carries a history of chronic alcohol abuse and chronic alcoholic pancreatitis, for which she has been seen multiple times in our ED. His last hospital admission was from 05/25/2018 to 06/08/2018. During this hospitalization he was a very hard detox and was placed on a Ativan drip. He was eventually intubated and transferred to [place]. He is noncompliant and does have a history of drug-seeking behavior. He carries a history of drug abuse as well. While in the ED earlier he was told not to drink anymore. He reports he went home and had 1 drink. He also reports he had a very greasy meal. His abdominal pain has continued. He is on home magne sium supplementation as well but does not routinely take this. In the ED afebrile with a pulse of 87, respirations of 16, blood pressure 129/98, and pulse ox of 97% on room air. He started on LR and given 2 g of magnesium. He is also given Dilaudid for pain and Zofran. Lipase was obtained and was higher than on prior visit. His ethyl alcohol was 0.41. UDS and UA were negative. He carries a history of hypertension, chronic pancreatitis, difficulty with urination, concussions, addiction, depression. His PCP is Dr. Fournier. He is a full code. He is subsequently admitted overnight to the medical floor observation status for management of his electrolyte abnormalities and abdominal pain. Diagnosis: Stroke: No - Discharge Data Discharge Date: 08/28/19 Discharge Disposition: DC/Tfer to Acute Hospital 02 Condition: Stable - Referral to Home Health Primary Care Physician: Tulio Fournier Jr, MD - Discharge Diagnosis/Problem(s) (1) Alcohol withdrawal SNOMED Code(s): 289750765 ICD Code: F10.239 - ALCOHOL DEPENDENCE WITH WITHDRAWAL, UNSPECIFIED Status: Acute Priority: High Current Visit: Yes Qualifiers: Complication of substance-induced condition: with delirium Qualified Code(s): F10.231 - Alcohol dependence with withdrawal delirium (2) Hypomagnesemia SNOMED Code(s): 257029419 ICD Code: E83.42 - HYPOMAGNESEMIA Status: Acute Priority: High Current Visit: Yes (3) Chronic alcoholic pancreatitis SNOMED Code(s): 968501447 ICD Code: K86.0 - ALCOHOL-INDUCED CHRONIC PANCREATITIS Status: Chronic Priority: High Current Visit: Yes (4) Thrombocytopenia concurrent with and due to alcoholism SNOMED Code(s): 59268255801099 ICD Code: D69.59 - OTHER SECONDARY THROMBOCYTOPENIA; F10.20 - ALCOHOL DEPENDENCE, UNCOMPLICATED Status: Acute Current Visit: Yes (5) Fever SNOMED Code(s): 438110307 ICD Code: R50.9 - FEVER, UNSPECIFIED Status: Acute Current Visit: Yes - Patient Summary/Data Consults: Consultations 08/23/19 10:04 Consult to Physician [CONS] Routine 08/23/19 10:05 Consult to Case Management/Acid Patroller [CONS] Routine Hospital Course: Day of admission: Presented to ED twice over 24 hours for abdominal pain History of Methamphetamine, Marijuana, and ETOH abuse Chronic ETOH pancreatitis with multiple ED visits over past few years Last hospitalized 05/25/18-06/08/18 - Very hard detox -> Abusive to staff-> Ativan drip-> Intubated-> Transferred to [place] Labs: - WBC: 3.64 - Hgb: 13.5 - Plt: 85 - Na: 141-->143 - Potassium: 3.4-->3.9 - eGFR: >60 - Magnesium 1.3-->1.7 - Phosphorous 3.3 - AST: 200 - ALT: 64 - Alk Phos: 103 - Lipase: 1134 - Ethyl Alcohol: 0.41 - UDS: Negative 40 mEq potassium given in ED 2gm magnesium given in ED Fatty liver noted on CT scan from 05/28/19 08/24/2019 Remains NPO Reports abdominal pain States he feels like his withdrawal is getting worse CIWA 7-9; Level 1 On room air Reports last ETOH drink was 08/22/19 around 1100 2PPD smoker - nicotine patch ordered LABS - WBC:6.17 - Hgb/HCT 45.4 - Plt: 65 - Sodium: 135 - Potassium: 4.1 - Creatinine: 0.7 - eGFR: >60 - Phosphorous: 2.9 - Magnesium: 1.4 - AST: 115 - ALT: 54 - Alk Phos 117 - Total Bili: 1.4 -Mg Supplemented -Hallucinating in room/confused overnight and this AM 08/25/2019 * Intubated overnight secondary to requiring high doses of benzodiazepines and concern for airway protection * N.p.o. * Patient continued to be aroused even on fentanyl and Versed drip. This required starting propofol in addition. * Labs * WBC 4.71 * Hgb 13.5 * Platelet count 61 * Sodium 139 * Potassium 3.2 * Bicarb 30 * BUN 6 * Creatinine 0.7 * Estimated GFR greater than 60 * Magnesium 1.6 * Total bilirubin 1.2 * AST 89 * ALT 42 * Alkaline phosphatase 95 * Albumin 2.8 08/26/2019 * Continues to be intubated with minimal support * Currently n.p.o., but will initiate tube feeds today * Requiring fentanyl, Versed, and propofol for sedation * Plan to continue mechanical ventilation for the next 24 to 48 hours so patient can get through most of the difficulty time of alcoholic detox. * Patient does become very violent during the weaning and detoxification process. * Thrombocytopenia improving to platelets of 93,000 * Hypomagnesemia, magnesium 1.5. * Lipase down to 518 * Glucose in the 70s * Start D5 half-normal saline until on tube feeds. * Positive fluid balance but no change in weight 08/27/2019 * Continues sedation with mechanical ventilation secondary to severe alcohol withdrawal * Started on Vital AF and at goal of 70 mL/h * Fever (Tm 101.7) overnight with no known source. Line infection must be considered. * COVID negative * Blood cultures and urine cultures done. * UA suggestive of infection * Rocephin 2 g started * Lipase continues to trend down even with starting NG tube feeds * ABG: pH 7.37, PCO2 53, PO2 82, bicarb 29.8, oxygen saturation 94.1%. Increase Vt to 450 * Hypomagnesemia 1.3 * Positive fluid balance without weight gain 08/28/2019 * Plan today was to extubate patient, but he developed a temperature of 39.1 Celsius. * Patient was at tube feed goal of vital AF 70 mL an hour * Preliminary blood cultures negative * Urine culture positive for gram-positive cocci * Started on vancomycin in addition to his Rocephin * WBC 5.3 with no shift. Negative anion gap. * Mild metabolic alkalosis with pH of 7.47 * Lipase normal at 269 * Triglycerides 93 * CK normal at 189 * Low magnesium 1.2 -started on magnesium 4 g prior to transfer * Low albumin 1.9 * Phosphorus 3.4 * Negative fluid balance over the last 24 hours with no change in weight Abdominal ultrasound: 1. Sludge within the gallbladder with mild gallbladder wall thickening. Slight inflammatory change within the gallbladder wall is also noted. Difficult to exclude a calculus cholecystitis. Common bile duct also mildly dilated up to 8.1 mm. 2. Mostly obscured pancreas from bowel gas. 3. Questionable complicated fluid collection posterior to the spleen and diff icult to exclude abscess. 4. Fatty infiltration within the liver. CT of the abdomen and pelvis with contrast 1. No abscess is confirmed as questioned on prior study posterior to the spleen. Ultrasound findings most likely represent partial imaging of a pleural effusion. 2. Minimal pleural effusions are seen bilaterally. Focal atelectasis is noted within the right lung base. Lesser atelectasis within the left lung base. 3. Air within the bladder presumably from recent instrumentation from Aguayo catheter placement. 4. Distended gallbladder. Pancreas was noted to be normal. Decision was to transfer patient to [facility] in [place] secondary to recurrent fever and possible cholecystitis. - Discharge Plan *PRESCRIPTION DRUG MONITORING PROGRAM REVIEWED*: No *COPY OF PRESCRIPTION DRUG MONITORING REPORT IN PATIENT DUONG: No Home Medications: Home Meds Potassium Chloride [Klor-Con M20] 20 meq PO Q8H #10 tab.er 08/22/19 [Rx] Amylase/Lipase/Protease [Pancrelipase DR 5,000 Units] 1 cap PO TIDMEALS 08/23/19 [History] Cyanocobalamin Gummy 1 tab PO DAILY 08/23/19 [History] Folic Acid 1 mg PO DAILY 08/23/19 [History] Magnesium Oxide [Magnesium] 400 mg PO DAILY 08/23/19 [History] Nicotine [Nicotine Patch] 21 mg TOP DAILY 08/23/19 [History] QUEtiapine [SEROquel] 75 mg PO BEDTIME 08/23/19 [History] oxyCODONE 5 - 10 mg PO Q8H PRN 08/23/19 [History] Oxygen Therapy Mode: Mechanical Ventilation Patient Handouts: Steps to Quit Smoking Forms: ED Department Discharge Referrals: Tulio Fournier Jr, MD [Primary Care Provider] - - Discharge Summary/Plan Comment DC Time >30 min.: Yes Discharge Summary/Plan Comment: Decision was made to transfer patient to [facility] in [place]. Accepting physician Dr. Sawyer. - General Info Date of Service: 08/28/19 Admission Dx/Problem (Free Text: Admission Diagnosis/Problem Admission Diagnosis/Problem Pancreatitis Subjective Update: INTERVAL HISTORY Overnight Events * Recurrent fever of 39.1 * Blood cultures - * Urine culture done. Started on Rocephin. VS * HR 56-115 * MAP is greater than 65 * Tm 39.1 C * SaO2: > 92% I/Os * UO last 24 hours 3,675 * Balance since admission +5,739 * BM 08/23 Diet * Vital AF 70 ml/h - on hold Lines and tubes * Aguayo catheter 08/24/2019 * ETT 08/24/2019 * Central line 08/25/2019 * Arterial line 08/25/2019 Ventilator settings * AC/VC, VT 450, RR 12, FiO2 28%, PEEP 8, PSV 10, * Plateau pressure 14 * Peak pressure 17 Fluids and drips * Fentanyl 3.9 mcg/kg/h * Propofol on hold * Medazepam 25 mg/h * Norepinephrine off * D5LR @ 100ml/h * Vital AF 70 ml/h - on hold - Patient Data Vitals - Most Recent: Last Vital Signs Temp 101.5 F H 08/28/19 08:00 Pulse 67 08/28/19 03:33 Resp 21 H 08/28/19 06:10 BP 131/86 08/28/19 08:00 Pulse Ox 92 L 08/28/19 12:22 Weight - Most Recent: 64.4 kg I&O - Last 24 hours: Intake & Output 08/27/19 08/28/19 08/28/19 22:59 06:59 14:59 Intake Total 2032 1047 247 Output Total 800 4595 725 Balance 2087 -407 -796 Lab Results - Last 24 hrs: Laboratory Results - last 24 hr 08/27/19 08/27/19 08/28/19 Range/Units 04:40 17:18 00:21 WBC (4.23-9.07) K/mm3 RBC (4.63-6.08) M/mm3 Hgb (13.7-17.5) gm/dl Hct (40.1-51.0) % MCV (79.0-92.2) fl MCH (25.7-32.2) pg MCHC (32.2-35.5) g/dl RDW Std Deviation (35.1-43.9) fL Plt Count (163-337) K/mm3 MPV (9.4-12.3) fl Neut % (Auto) (34.0-67.9) % Lymph % (Auto) (21.8-53.1) % [place] % (Auto) (5.3-12.2) % Eos % (Auto) (0.8-7.0) Baso % (Auto) (0.1-1.2) % Neut # (Auto) (1.78-5.38) K/mm3 Lymph # (Auto) (1.32-3.57) K/mm3 [place] # (Auto) (0.30-0.82) K/mm3 Eos # (Auto) (0.04-0.54) K/mm3 Baso # (Auto) (0.01-0.08) K/mm3 Manual Slide Review Puncture Site ABG pH (7.35-7.45) ABG pCO2 (35.0-45.0) mmHg ABG pO2 (80.0-100.0) mmHg ABG HCO3 (22.0-26.0) meq/L ABG O2 Saturation (96.0-97.0) % ABG Base Excess (-2-2.0) [place] Test A-a Gradient mmHg O2 Delivery Device FiO2 (21.00-100.00) % Tidal Volume cc PEEP cmH20 Pressure Support cmH2O Sodium (136-145) mEq/L Potassium (3.5-5.1) mEq/L Chloride (98-107) mEq/L Carbon Dioxide (21-32) mEq/L Anion Gap (5-15) BUN (7-18) mg/dL Creatinine (0.7-1.3) mg/dL Est Cr Clr Drug Dosing mL/min Estimated GFR (MDRD) (>60) mL/min BUN/Creatinine Ratio (14-18) Glucose (74-106) mg/dL POC Glucose 99 172 H (70-105) mg/dL Calcium (8.5-10.1) mg/dL Phosphorus (2.6-4.7) mg/dL Magnesium (1.8-2.4) mg/dl Total Bilirubin (0.2-1.0) mg/dL AST (15-37) U/L ALT (16-63) U/L Alkaline Phosphatase (46-116) U/L Creatine Kinase (39-308) U/L Total Protein (6.4-8.2) g/dl Albumin (3.4-5.0) g/dl Globulin gm/dL Albumin/Globulin Ratio (1-2) Triglycerides (<150) mg/dL Lipase (73-393) U/L Procalcitonin 0.18 H (<0.10) ng/mL 08/28/19 08/28/19 08/28/19 Range/Units 04:50 04:50 04:50 WBC 5.57 (4.23-9.07) K/mm3 RBC 3.96 L (4.63-6.08) M/mm3 Hgb 11.5 L (13.7-17.5) gm/dl Hct 36.6 L (40.1-51.0) % MCV 92.4 H (79.0-92.2) fl MCH 29.0 (25.7-32.2) pg MCHC 31.4 L (32.2-35.5) g/dl RDW Std Deviation 48.8 H (35.1-43.9) fL Plt Count 127 L (163-337) K/mm3 MPV 11.0 (9.4-12.3) fl Neut % (Auto) 53.5 (34.0-67.9) % Lymph % (Auto) 13.3 L (21.8-53.1) % [place] % (Auto) 26.2 H (5.3-12.2) % Eos % (Auto) 6.8 (0.8-7.0) Baso % (Auto) 0.2 (0.1-1.2) % Neut # (Auto) 2.98 (1.78-5.38) K/mm3 Lymph # (Auto) 0.74 L (1.32-3.57) K/mm3 [place] # (Auto) 1.46 H (0.30-0.82) K/mm3 Eos # (Auto) 0.38 (0.04-0.54) K/mm3 Baso # (Auto) 0.01 (0.01-0.08) K/mm3 Manual Slide Review Abnormal smear Puncture Site ABG pH (7.35-7.45) ABG pCO2 (35.0-45.0) mmHg ABG pO2 (80.0-100.0) mmHg ABG HCO3 (22.0-26.0) meq/L ABG O2 Saturation (96.0-97.0) % ABG Base Excess (-2-2.0) [place] Test A-a Gradient mmHg O2 Delivery Device FiO2 (21.00-100.00) % Tidal Volume cc PEEP cmH20 Pressure Support cmH2O Sodium 143 (136-145) mEq/L Potassium 3.7 (3.5-5.1) mEq/L Chloride 106 (98-107) mEq/L Carbon Dioxide 33 H (21-32) mEq/L Anion Gap 7.7 (5-15) BUN 6 L (7-18) mg/dL Creatinine 0.5 L (0.7-1.3) mg/dL Est Cr Clr Drug Dosing 186.04 mL/min Estimated GFR (MDRD) > 60 (>60) mL/min BUN/Creatinine Ratio 12.0 L (14-18) Glucose 113 H (74-106) mg/dL POC Glucose (70-105) mg/dL Calcium 7.9 L (8.5-10.1) mg/dL Phosphorus 3.4 (2.6-4.7) mg/dL Magnesium 1.2 L (1.8-2.4) mg/dl Total Bilirubin 0.5 (0.2-1.0) mg/dL AST 241 H (15-37) U/L ALT 162 H (16-63) U/L Alkaline Phosphatase 141 H (46-116) U/L Creatine Kinase 189 (39-308) U/L Total Protein 5.2 L (6.4-8.2) g/dl Albumin 1.9 L (3.4-5.0) g/dl Globulin 3.3 gm/dL Albumin/Globulin Ratio 0.6 L (1-2) Triglycerides 93 (<150) mg/dL Lipase 269 (73-393) U/L Procalcitonin (<0.10) ng/mL 08/28/19 08/28/19 Range/Units 06:21 08:09 WBC (4.23-9.07) K/mm3 RBC (4.63-6.08) M/mm3 Hgb (13.7-17.5) gm/dl Hct (40.1-51.0) % MCV (79.0-92.2) fl MCH (25.7-32.2) pg MCHC (32.2-35.5) g/dl RDW Std Deviation (35.1-43.9) fL Plt Count (163-337) K/mm3 MPV (9.4-12.3) fl Neut % (Auto) (34.0-67.9) % Lymph % (Auto) (21.8-53.1) % [place] % (Auto) (5.3-12.2) % Eos % (Auto) (0.8-7.0) Baso % (Auto) (0.1-1.2) % Neut # (Auto) (1.78-5.38) K/mm3 Lymph # (Auto) (1.32-3.57) K/mm3 [place] # (Auto) (0.30-0.82) K/mm3 Eos # (Auto) (0.04-0.54) K/mm3 Baso # (Auto) (0.01-0.08) K/mm3 Manual Slide Review Puncture Site Rt radial ABG pH 7.47 H (7.35-7.45) ABG pCO2 41.9 (35.0-45.0) mmHg ABG pO2 72.0 L (80.0-100.0) mmHg ABG HCO3 30.3 H (22.0-26.0) meq/L ABG O2 Saturation 94.2 L (96.0-97.0) % ABG Base Excess 6.4 H (-2-2.0) [place] Test Positive A-a Gradient 76 mmHg O2 Delivery Device Ventilator FiO2 0.00 L (21.00-100.00) % Tidal Volume 450.0 cc PEEP 8.0 cmH20 Pressure Support 0.0 cmH2O Sodium (136-145) mEq/L Potassium (3.5-5.1) mEq/L Chloride (98-107) mEq/L Carbon Dioxide (21-32) mEq/L Anion Gap (5-15) BUN (7-18) mg/dL Creatinine (0.7-1.3) mg/dL Est Cr Clr Drug Dosing mL/min Estimated GFR (MDRD) (>60) mL/min BUN/Creatinine Ratio (14-18) Glucose (74-106) mg/dL POC Glucose 136 H (70-105) mg/dL Calcium (8.5-10.1) mg/dL Phosphorus (2.6-4.7) mg/dL Magnesium (1.8-2.4) mg/dl Total Bilirubin (0.2-1.0) mg/dL AST (15-37) U/L ALT (16-63) U/L Alkaline Phosphatase (46-116) U/L Creatine Kinase (39-308) U/L Total Protein (6.4-8.2) g/dl Albumin (3.4-5.0) g/dl Globulin gm/dL Albumin/Globulin Ratio (1-2) Triglycerides (<150) mg/dL Lipase (73-393) U/L Procalcitonin (<0.10) ng/mL HERB Results - Last 24 hrs: Microbiology 08/26/19 21:16 Urine Culture - Preliminary Urine, Aguayo Cath (Indwelling) Gram Positive Cocci 08/26/19 21:30 Aerobic Blood Culture - Preliminary Blood - Venous - Lab Draw NO GROWTH AFTER 1 DAY Anaerobic Blood Culture - Preliminary NO GROWTH AFTER 1 DAY 08/26/19 21:50 Aerobic Blood Culture - Preliminary Blood - Venous NO GROWTH AFTER 1 DAY Anaerobic Blood Culture - Final Med Orders - Current: Current Medications Acetaminophen (Tylenol) 650 mg RECTAL Q6H PRN PRN Reason: Fever Last Admin: 08/28/19 06:32 Dose: 650 mg Documented by: Dextrose/Water (Dextrose 50% In Water) 50 ml IVPUSH ASDIRECTED PRN PRN Reason: Hypoglycemia Last Admin: 08/26/19 11:55 Dose: 25 ml Documented by: Diazepam (Valium) 10 mg IVPUSH ASDIRECTED PRN PRN Reason: Withdrawal Symptoms Last Admin: 08/28/19 07:56 Dose: 10 mg Documented by: Enoxaparin Sodium (Lovenox) 40 mg SUBCUT DAILY [facility] Last Admin: 08/28/19 08:03 Dose: 40 mg Documented by: Folic Acid (Folic Acid) 1 mg IV DAILY [facility] Last Admin: 08/28/19 08:02 Dose: 1 mg Documented by: Haloperidol Lactate (Haldol) 2 mg IVPUSH Q2H PRN PRN Reason: Withdrawal Symptoms Last Admin: 08/24/19 21:53 Dose: 2 mg Documented by: Hydralazine HCl (Apresoline) 10 mg IVPUSH Q2H PRN PRN Reason: Hypertension Fentanyl 2,500 mcg/ Sodium (Chloride) 250 mls @ 6.41 mls/hr IV TITRATE BRAT; Protocol Last Titration: 08/28/19 10:00 Dose: 3.9 mcg/kg/hr, 25 mls/hr Documented by: Propofol (Diprivan 100 Ml) 100 mls @ 1.929 mls/hr IV TITRATE BART; Protocol Last Titration: 08/28/19 08:37 Dose: 0 mcg/kg/min, 0 mls/hr Documented by: Norepinephrine Bitartrate 4 mg (/ Dextrose/Water) 250 mls @ 7.5 mls/hr IV TITRATE BART; Protocol Last Titration: 08/26/19 23:54 Dose: 0 mcg/min, 0 mls/hr Documented by: Sodium Chloride (Normal Saline) 500 mls @ 5 mls/hr IV ASDIRECTED BART Last Admin: 08/25/19 09:00 Dose: 5 mls/hr Documented by: Midazolam HCl 100 mg/ Sodium (Chloride) 100 mls @ 10 mls/hr IV TITRATE BART; Protocol Last Titration: 08/28/19 12:14 Dose: 25 mls/hr, 25 mls/hr Documented by: Ceftriaxone Sodium 2 gm/ (Sodium Chloride) 100 mls @ 200 mls/hr IV Q24H BART Last Admin: 08/27/19 21:34 Dose: 200 mls/hr Documented by: Vancomycin HCl 1 gm/ Sodium (Chloride) 250 mls @ 250 mls/hr IV Q8H BART Last Admin: 08/28/19 08:03 Dose: 250 mls/hr Documented by: Dextrose/Lactated Ringer's (Dextrose 5%-Lactated Ringers) 1,000 mls @ 250 mls/hr IV ASDIRECTED BART Stop: 08/29/19 12:14 Last Admin: 08/28/19 10:00 Dose: 250 mls/hr Documented by: Dextrose/Lactated Ringer's (Dextrose 5%-Lactated Ringers) 1,000 mls @ 100 mls/hr IV ASDIRECTED BART Lorazepam (Ativan) 0 mg IVPUSH ASDIRECTED PRN; Protocol PRN Reason: Withdrawal Symptoms Last Admin: 08/24/19 22:06 Dose: 3 mg Documented by: Miscellaneous Information (Remove Patch) 21 ea TRDERM DAILY [facility] Last Admin: 08/28/19 08:03 Dose: 21 ea Documented by: Nicotine (Habitrol) 21 mg TRDERM DAILY [facility] Last Admin: 08/28/19 08:03 Dose: 21 mg Documented by: Ondansetron HCl (Zofran) 4 mg IVPUSH Q6H PRN PRN Reason: Nausea Last Admin: 08/24/19 12:15 Dose: 4 mg Documented by: Pantoprazole Sodium (Protonix Iv) 40 mg IVPUSH Q12H [facility] Last Admin: 08/28/19 08:02 Dose: 40 mg Documented by: Thiamine HCl (Vitamin B-1) 100 mg IVPUSH DAILY [facility] Last Admin: 08/28/19 08:02 Dose: 100 mg Documented by: Vancomycin HCl (Pharmacy To Dose - Vancomycin) 1 dose .XX ASDIRECTED BART Discontinued Medications Diazepam (Valium) 10 mg IVPUSH Q2H PRN PRN Reason: Withdrawal Symptoms Last Admin: 08/28/19 06:33 Dose: 10 mg Documented by: Enoxaparin Sodium (Lovenox) 40 mg SUBCUT DAILY [facility] Last Admin: 08/27/19 13:42 Dose: Not Given Documented by: Etomidate (Amidate) 40 mg IVPUSH .STK-MED ONE Stop: 08/24/19 23:01 Haloperidol Lactate (Haldol) Confirm Administered Dose 5 mg .ROUTE .STK-MED ONE Stop: 08/24/19 21:53 Last Admin: 08/24/19 23:25 Dose: Not Given Documented by: Hydromorphone HCl (Dilaudid) 0.5 mg IVPUSH ONETIME ONE Stop: 08/22/19 21:28 Last Admin: 08/22/19 21:37 Dose: 0.5 mg Documented by: Hydromorphone HCl (Dilaudid) 0.5 mg IVPUSH Q3H PRN PRN Reason: Pain Last Admin: 08/23/19 06:44 Dose: 0.5 mg Documented by: Lactated Ringer's (Ringers, Lactated) 1,000 mls @ 150 mls/hr IV ASDIRECTED BART Last Infusion: 08/25/19 14:24 Dose: Infused Documented by: Lactated Ringer's (Ringers, Lactated) 500 mls @ 999 mls/hr IV .BOLUS ONE Stop: 08/22/19 22:16 Last Admin: 08/23/19 01:13 Dose: Not Given Documented by: Magnesium Sulfate 2 gm/ Premix 50 mls @ 25 mls/hr IV ONETIME ONE Stop: 08/23/19 01:06 Last Admin: 08/22/19 23:20 Dose: 25 mls/hr Documented by: Thiamine HCl 1,000 mg/Magnesium Sulfate 4 gm/ Folic Acid 1 mg/ Dextrose/Sodium Chloride 1,018.2 mls @ 125 mls/hr IV Q24H BART Stop: 08/24/19 21:00 Last Admin: 08/24/19 10:34 Dose: 125 mls/hr Documented by: Midazolam HCl 100 mg/ Sodium (Chloride) 100 mls @ 2 mls/hr IV TITRATE BART; Protocol Last Admin: 08/24/19 23:24 Dose: 7 mg/hr, 7 mls/hr Documented by: Sodium Chloride (Normal Saline) Confirm Administered Dose 100 mls @ as directed .ROUTE .STK-MED ONE Stop: 08/24/19 23:14 Last Admin: 08/24/19 23:25 Dose: Not Given Documented by: Midazolam HCl 100 mg/ Sodium (Chloride) 100 mls @ 2 mls/hr IV TITRATE BART; Protocol Last Titration: 08/25/19 04:13 Dose: 15 mg/hr, 15 mls/hr Documented by: Midazolam HCl 100 mg/ Premix 100 mls @ 2 mls/hr IV ONETIME BART; Protocol Stop: 08/25/19 18:00 Last Titration: 08/25/19 16:00 Dose: 15 mg/hr, 15 mls/hr Documented by: Propofol (Diprivan 100 Ml) Confirm Administered Dose 100 mls @ as directed .ROUTE .STK-MED ONE Stop: 08/25/19 07:18 Last Admin: 08/25/19 07:57 Dose: Not Given Documented by: Propofol (Diprivan 100 Ml) Confirm Administered Dose 100 mls @ as directed .ROUTE .STK-MED ONE Stop: 08/25/19 07:23 Last Admin: 08/25/19 07:57 Dose: Not Given Documented by: Magnesium Sulfate 4 gm/ Premix 50 mls @ 12.5 mls/hr IV ONETIME ONE Stop: 08/25/19 11:30 Last Admin: 08/25/19 11:51 Dose: 12.5 mls/hr Documented by: Potassium Chloride 10 meq/ (Premix) 100 mls @ 100 mls/hr IV Q1H [facility] Stop: 08/25/19 11:44 Last Admin: 08/25/19 14:50 Dose: 100 mls/hr Documented by: Sodium Chloride (Normal Saline) Confirm Administered Dose 500 mls @ as directed .ROUTE .[facility] ONE Stop: 08/25/19 08:58 Last Admin: 08/25/19 12:18 Dose: Not Given Documented by: Lactated Ringer's (Ringers, Lactated) 1,000 mls @ 100 mls/hr IV ASDIRECTED [facility] Last Admin: 08/26/19 02:15 Dose: 100 mls/hr Documented by: Dextrose/Sodium Chloride (Dextrose 5%-1/2 Ns) 1,000 mls @ 75 mls/hr IV ASDIRECTED [facility] Last Infusion: 08/26/19 13:30 Dose: 40 mls/hr Documented by: Magnesium Sulfate 4 gm/ Premix 50 mls @ 12.5 mls/hr IV ONETIME ONE Stop: 08/26/19 12:59 Last Admin: 08/26/19 09:12 Dose: 12.5 mls/hr Documented by: Dextrose/Sodium Chloride (Dextrose 5%-1/2 Ns) 1,000 mls @ 40 mls/hr IV ASDIRECTED [facility] Last Admin: 08/27/19 04:12 Dose: 40 mls/hr Documented by: Magnesium Sulfate 4 gm/ Premix 50 mls @ 12.5 mls/hr IV ONETIME ONE Stop: 08/27/19 12:03 Last Admin: 08/27/19 08:24 Dose: 12.5 mls/hr Documented by: Magnesium Sulfate 2 gm/ Premix 50 mls @ 25 mls/hr IV ONETIME ONE Stop: 08/27/19 14:45 Last Admin: 08/27/19 13:45 Dose: 25 mls/hr Documented by: Vancomycin HCl 1.5 gm/ Sodium (Chloride) 500 mls @ 250 mls/hr IV ONETIME ONE Stop: 08/27/19 18:59 Last Admin: 08/27/19 17:12 Dose: 250 mls/hr Documented by: Magnesium Sulfate 4 gm/ Premix 50 mls @ 12.5 mls/hr IV ONETIME ONE Stop: 08/28/19 12:01 Last Admin: 08/28/19 08:12 Dose: 12.5 mls/hr Documented by: Iopamidol (Isovue-300 (61%)) 100 ml IVPUSH ONETIME ONE Stop: 08/28/19 11:29 Last Admin: 08/28/19 12:00 Dose: 100 ml Documented by: Ketamine HCl (Ketalar) 500 mg .ROUTE .STK-MED ONE Stop: 08/24/19 23:01 Labetalol HCl (Normodyne) 10 mg IVPUSH ONETIME STA; Protocol Stop: 08/24/19 23:11 Last Admin: 08/24/19 23:59 Dose: Not Given Documented by: Lorazepam (Ativan) 4 mg IVPUSH ONETIME ONE Stop: 08/23/19 11:27 Last Admin: 08/23/19 11:26 Dose: 4 mg Documented by: Lorazepam (Ativan) 1 mg IVPUSH Q6H PRN PRN Reason: Agitation Stop: 08/26/19 11:45 Last Admin: 08/24/19 08:37 Dose: 1 mg Documented by: Lorazepam (Ativan) 2 mg IVPUSH ONETIME ONE Stop: 08/24/19 12:34 Last Admin: 08/24/19 12:41 Dose: 2 mg Documented by: Lorazepam (Ativan) 2 mg IVPUSH ONETIME ONE Stop: 08/24/19 13:34 Last Admin: 08/24/19 13:26 Dose: 2 mg Documented by: Lorazepam (Ativan) 1 mg IVPUSH Q4H BART Stop: 08/25/19 13:31 Lorazepam (Ativan) 2 mg IVPUSH ONETIME ONE Stop: 08/24/19 16:54 Last Admin: 08/24/19 16:58 Dose: 2 mg Documented by: Lorazepam (Ativan) Confirm Administered Dose 2 mg .ROUTE .STK-MED ONE Stop: 08/24/19 16:58 Last Admin: 08/24/19 17:01 Dose: Not Given Documented by: Lorazepam (Ativan) 2 mg IVPUSH ONETIME ONE Stop: 08/24/19 18:01 Last Admin: 08/24/19 17:55 Dose: 2 mg Documented by: Lorazepam (Ativan) Confirm Administered Dose 2 mg .ROUTE .STK-MED ONE Stop: 08/24/19 19:26 Last Admin: 08/24/19 19:30 Dose: Not Given Documented by: Lorazepam (Ativan) 2 mg IVPUSH ONETIME ONE Stop: 08/24/19 19:26 Last Admin: 08/24/19 19:30 Dose: 2 mg Documented by: Magnesium Oxide (Magnesium Oxide) 400 mg OGTUBE BID [facility] Last Admin: 08/27/19 08:25 Dose: 400 mg Documented by: Meperidine HCl (Meperidine) 50 mg IVPUSH Q6H PRN PRN Reason: Pain (severe 7-10) Last Admin: 08/24/19 17:58 Dose: 50 mg Documented by: Midazolam HCl (Versed 1 Mg/Ml) 10 mg .ROUTE .STK-MED ONE Stop: 08/24/19 23:01 Nicotine (Habitrol) 21 mg TRDERM Q24H [facility] Nicotine (Habitrol) 21 mg TRDERM DAILY [facility] Last Admin: 08/25/19 11:45 Dose: 21 mg Documented by: Norepinephrine Bitartrate (Levophed) Confirm Administered Dose 4 mg .ROUTE .STK- MED ONE Stop: 08/25/19 07:30 Last Admin: 08/25/19 07:57 Dose: Not Given Documented by: Ondansetron HCl (Zofran) 4 mg IVPUSH ONETIME ONE Stop: 08/22/19 21:28 Last Admin: 08/22/19 21:37 Dose: 4 mg Documented by: Potassium Chloride (Klor-Con M20) 40 meq PO ONETIME ONE Stop: 08/22/19 23:08 Last Admin: 08/22/19 23:20 Dose: 40 meq Documented by: Propofol (Diprivan 20 Ml) 200 mg IVPUSH ONETIME ONE Stop: 08/25/19 07:21 Last Admin: 08/25/19 07:20 Dose: 200 mg Documented by: Propofol (Diprivan 20 Ml) 400 mg .ROUTE .STK-MED ONE Stop: 08/24/19 23:01 Quetiapine Fumarate (Seroquel) 75 mg PO BEDTIME [facility] Last Admin: 08/25/19 20:01 Dose: 75 mg Documented by: Quetiapine Fumarate (Seroquel) 75 mg PO BEDTIME [facility] Last Admin: 08/27/19 23:11 Dose: 75 mg Documented by: Succinylcholine Chloride (Quelicin) 400 mg .ROUTE .STK-MED ONE Stop: 08/24/19 23:01 - Exam Quality Assessment: Reports: Supplemental Oxygen (Mechanical ventilation), Central Line/PICC, Urine Catheter General: Reports: Sedated HEENT: Reports: Pupils Equal, Mucous Membr. Moist/[place] Neck: Reports: Supple Lungs: Reports: Clear to Auscultation, Normal Respiratory Effort Cardiovascular: Reports: Regular Rate, Regular Rhythm GI/Abdominal Exam: Normal Bowel Sounds, Soft, Non-Tender, No Organomegaly, No Distention, No Abnormal Bruit, No Mass Extremities: Normal Inspection, Normal Range of Motion, Non-Tender, No Pedal Edema, Normal Capillary Refill Skin: Reports: Warm, Dry, Intact
[2019-08-28] MEDS ORDERED: Lactated Ringers 1,000 ML IV SCH (13:45)
[2019-08-28 16:24] VITALS: BP 118/76
== END 2019-08-28 16:18 | DRG 897 ==
LOC: JD.ED 20:52 → JD.MS 23:20 → OBSVTOIN 08-23 10:03 → JD.ICU 08-23 10:04
PROVIDERS: ADMIT Internal Medicine; ATTEND Internal Medicine
PROC: 0BH17EZ Insertion of Endotracheal Airway into Trachea, Via Natural or Artificial Opening (ICD-10-PCS; principal; 2019-08-24)
PROC: 5A1945Z Respiratory Ventilation, 24-96 Consecutive Hours (ICD-10-PCS; 2019-08-24)
PROC: 03HY32Z Insertion of Monitoring Device into Upper Artery, Percutaneous Approach (ICD-10-PCS; 2019-08-25)
PROC: 4A133B1 Monitoring of Arterial Pressure, Peripheral, Percutaneous Approach (ICD-10-PCS; 2019-08-25)
PROC: 4A133J1 Monitoring of Arterial Pulse, Peripheral, Percutaneous Approach (ICD-10-PCS; 2019-08-25)
PROC: 02HV33Z Insertion of Infusion Device into Superior Vena Cava, Percutaneous Approach (ICD-10-PCS; 2019-08-25)
DX: F10.231 Alcohol dependence with withdrawal delirium (principal); K86.0 Alcohol-induced chronic pancreatitis; E87.3 Alkalosis; E87.6 Hypokalemia; I10 Essential (primary) hypertension; R30.0 Dysuria; F32.9 Major depressive disorder, single episode, unspecified; E83.42 Hypomagnesemia; F17.210 Nicotine dependence, cigarettes, uncomplicated; Z91.19 Patient's noncompliance with other medical treatment and regimen; F15.10 Other stimulant abuse, uncomplicated; D69.59 Other secondary thrombocytopenia
CPT/HCPCS: 31500; 36415; 36556; 36569; 36600; 51702; 71045; 71045-26; 74177; 74177-26; 76700; 76700-26; 80048; 80053; 80306; 80307; 81001; 82248; 82550; 82803; 82962; 83615; 83690; 83735; 84100; 84145; 84478; 85025; 85610; 86140; 87040; 87086; 87088; 87186; 94002; 94003; 96361; 96365; 96375; 99222; 99232; 99239; 99284-25; A9270-GY; C9113; J0330; J0696; J1170; J1630; J1650; J2060; J2175; J2250; J2405; J2704; J3010; J3360; J3370; J3411; J3475; J3480; J3490; J7040; J7042; J7050; J7060; J7120; J7121; Q9967; U0002

== ENCOUNTER 2019-09-12 15:07 | Emergency (ER) | payer MEDICAID ==
[2019-09-12] MEDS ORDERED: Sodium Chloride 0.9% 10 ML Syringe FLUSH PRN (15:28)
[2019-09-12] MEDS ORDERED: Morphine 4 MG/ML Syringe IVPUSH ONE (15:29)
[2019-09-12] MEDS ORDERED: Ondansetron 4 MG/2 ML SDV IVPUSH ONE (15:29)
[2019-09-12] MEDS ORDERED: Sodium Chloride 0.9% 1,000 ML IV ONE (15:29)
[2019-09-12 15:36] VITALS: BP 124/92; PULSE 95
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
[2019-09-12] MEDS ORDERED: HYDROmorphone 0.5 MG/0.5 ML Syringe IVPUSH ONE (17:20)
[2019-09-12] MEDS ORDERED: Alum Hydrox/Mag Hydrox/Simeth 30 ML, Lidocaine 2% 15 ML PO ONE ×2 (18:45)
== END 2019-09-12 19:10 | disposition home or self-care (01) ==
LOC: JD.ED 15:07
DX: K29.20 Alcoholic gastritis without bleeding (principal); I10 Essential (primary) hypertension; F32.9 Major depressive disorder, single episode, unspecified; F17.210 Nicotine dependence, cigarettes, uncomplicated
CPT/HCPCS: 36415; 80053; 80306; 80307; 81001; 83690; 83735; 84100; 84484; 85025; 93005; 96361; 96374; 96375; 99284; A9270; J1170; J2270; J2405; J7030; 93010

== ENCOUNTER 2019-09-13 16:58 | Emergency (ER) | payer MEDICAID ==
[2019-09-13 17:39] VITALS: BP 131/84; PULSE 110
== END 2019-09-13 18:24 | disposition left against medical advice (07) ==
LOC: JD.ED 16:58
DX: Z53.21 Procedure and treatment not carried out due to patient leaving prior to being seen by health care provider (principal)

== ENCOUNTER 2019-09-14 21:04 | Emergency (ER) | payer MEDICAID ==
[2019-09-14 21:25] VITALS: BP 135/97; PULSE 110
[2019-09-14] MEDS ORDERED: Sodium Chloride 0.9% 1,000 ML IV ONE (22:33)
== END 2019-09-14 23:47 | disposition left against medical advice (07) ==
LOC: JD.ED 21:04
DX: Z53.21 Procedure and treatment not carried out due to patient leaving prior to being seen by health care provider (principal)
CPT/HCPCS: 36415; 80053; 83690; 85025; J7030

== ENCOUNTER 2020-02-12 14:31 | Emergency (ER) | payer MEDICAID ==
[2020-02-12 14:42] VITALS: BP 161/112; PULSE 99
[2020-02-12] MEDS ORDERED: HYDROmorphone 1 MG/ML Syringe IVPUSH ONE ×2 (14:48→16:58)
[2020-02-12] MEDS ORDERED: Ondansetron 4 MG/2 ML SDV IVPUSH ONE ×2 (14:49→16:58)
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
[2020-02-12] MEDS ORDERED: Dextrose 5%-Lactated Ringers 1,000 ML IV SCH (15:00)
[2020-02-12 16:13] LABS: HEMOGLOBIN A1C 5.8 % (4.50-6.20)
[2020-02-12] MEDS ORDERED: Magnesium Sulfate/Water 4 GM in Premix Bag 1 BAG IV ONE (16:39)
[2020-02-12] MEDS: Potassium Chloride 10 MEQ in Premix Bag 1 BAG IV SCH ×4 (16:39→20:06)
[2020-02-12] MEDS ORDERED: Lactated Ringers 1,000 ML IV SCH (16:45)
[2020-02-12] MEDS ORDERED: LORazepam 2 MG/ML SDV IV ONE (16:59)
[2020-02-12] MEDS ORDERED: Potassium Chloride 20 MEQ Tab.ER PO ONE (17:05)
[2020-02-12] MEDS ORDERED: HYDROmorphone 0.5 MG/0.5 ML Syringe IVPUSH ONE (21:08)
--- NOTE | 2020-02-13 08:44 | CR ---
Chest: Portable view of the chest was obtained. Comparison: No prior chest imaging is available. Findings: Heart and mediastinum: Heart size and mediastinum are normal. Lungs: Lungs are clear with no acute parenchymal change. Osseous: Bony structures are grossly intact. Impression: 1. Nothing acute is seen on portable chest x-ray. Diagnostic code #1
== END 2020-02-12 21:21 | disposition home or self-care (01) ==
LOC: JD.ED 14:31
DX: K85.20 Alcohol induced acute pancreatitis without necrosis or infection (principal); E87.6 Hypokalemia; E83.42 Hypomagnesemia; I10 Essential (primary) hypertension; F41.9 Anxiety disorder, unspecified; F32.9 Major depressive disorder, single episode, unspecified; R79.89 Other specified abnormal findings of blood chemistry; F17.210 Nicotine dependence, cigarettes, uncomplicated; Z20.828 Contact with and (suspected) exposure to other viral communicable diseases; Z79.899 Other long term (current) drug therapy
CPT/HCPCS: 36415; 71045; 80053; 80307; 81001; 82009; 82728; 82977; 83036; 83615; 83690; 83735; 84484; 85025; 85379; 85610; 85730; 86140; 87635; 93005; 96365; 96366; 96367; 96368; 96375; 96376; 99285; A9270; J1170; J2060; J2405; J3475; J3480; J7120; J7121; 99284; U0002

== ENCOUNTER 2020-02-16 16:47 | Emergency (ER) | payer MEDICAID ==
[2020-02-16] MEDS ORDERED: LORazepam 2 MG/ML SDV IVPUSH ONE (17:34)
[2020-02-16] MEDS ORDERED: Metoclopramide 10 MG/2 ML SDV IVPUSH ONE (17:34)
[2020-02-16] MEDS ORDERED: Thiamine 100 MG Tab PO ONE (17:34)
[2020-02-16] MEDS ORDERED: Folic Acid 1 MG Tab PO ONE (17:34)
[2020-02-16] MEDS ORDERED: Sodium Chloride 0.9% 10 ML Syringe FLUSH PRN ×2 (17:34)
[2020-02-16] MEDS ORDERED: Sodium Chloride 0.9% 1,000 ML IV ONE (17:34)
[2020-02-16] MEDS ORDERED: HYDROmorphone 1 MG/ML Syringe IVPUSH ONE ×2 (17:35→23:06)
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
[2020-02-16] MEDS ORDERED: Potassium Chloride 20 MEQ Tab.ER PO ONE (18:42)
[2020-02-16] MEDS ORDERED: Lactated Ringers 1,000 ML IV SCH (19:15)
[2020-02-16 20:43] LABS: CORONAVIRUS COVID-19 NAA NEGATIVE (NEGATIVE)
[2020-02-16] MEDS ORDERED: Magnesium Sulfate/Water 2 GM in Premix Bag 1 BAG IV ONE (20:49)
[2020-02-16] MEDS: Potassium Chloride 10 MEQ in Premix Bag 1 BAG IV SCH ×3 (21:00→23:03)
[2020-02-16] MEDS ORDERED: Ondansetron 4 MG/2 ML SDV IVPUSH ONE (23:07)
[2020-02-16] MEDS ORDERED: LORazepam 2 MG/ML SDV IV ONE (23:07)
[2020-02-16] MEDS ORDERED: Dextrose 5%-Lactated Ringers 1,000 ML IV SCH (23:15)
[2020-02-17] MEDS: Potassium Chloride 10 MEQ in Premix Bag 1 BAG IV SCH (00:17)
[2020-02-17] MEDS ORDERED: HYDROmorphone 1 MG/ML Syringe IVPUSH ONE (04:02)
[2020-02-17] MEDS ORDERED: LORazepam 2 MG/ML SDV IV ONE (04:03)
[2020-02-17] MEDS ORDERED: HYDROmorphone 0.5 MG/0.5 ML Syringe IVPUSH ONE ×2 (07:23→08:27)
[2020-02-17] MEDS ORDERED: LORazepam 2 MG/ML SDV IVPUSH ONE (08:27)
[2020-02-17 09:14] VITALS: BP 117/80; PULSE 62
== END 2020-02-17 09:03 | disposition home or self-care (01) ==
LOC: JD.ED 16:47
DX: K85.20 Alcohol induced acute pancreatitis without necrosis or infection (principal); F10.120 Alcohol abuse with intoxication, uncomplicated; Z20.828 Contact with and (suspected) exposure to other viral communicable diseases; I10 Essential (primary) hypertension; F41.9 Anxiety disorder, unspecified; F32.9 Major depressive disorder, single episode, unspecified; F17.210 Nicotine dependence, cigarettes, uncomplicated; Z79.899 Other long term (current) drug therapy
CPT/HCPCS: 0240U; 36415; 80053; 80307; 83690; 83735; 85025; 85610; 96365; 96366; 96375; 99284; A9270; J1170; J2060; J2405; J2765; J3475; J3480; J7030; J7120; J7121

== ENCOUNTER 2020-02-18 19:17 | Emergency (ER) | payer MEDICAID ==
[2020-02-18 19:32] VITALS: BP 135/99; PULSE 89
[2020-02-18] MEDS ORDERED: Ondansetron 4 MG/2 ML SDV IVPUSH ONE (20:02)
[2020-02-18] MEDS ORDERED: HYDROmorphone 1 MG/ML Syringe IVPUSH ONE ×2 (20:02→23:53)
--- NOTE | 2020-02-18 20:05 | EDM.PDOC ---
ED HPI GENERAL MEDICAL PROBLEM - General Chief Complaint: Abdominal Pain Stated Complaint: ABDOMINAL PAIN Time Seen by Provider: 02/18/20 19:28 Source of Information: Reports: Patient, Old Records (ED visit 02/16/2020) History Limitations: Reports: No Limitations - History of Present Illness INITIAL COMMENTS - FREE TEXT/NARRATIVE: Mr. Foss is a pleasant 39-year-old gentleman with a past medical history significant for binge alcoholism, who now presents to the ED with chronic/recurrent upper abdominal pain long with nausea and vomiting. He states that he has been drinking about half of a 1.75 L bottle of either whiskey or vodka, equivalent to 19-20 drinks per day, for the past 1.5 months, approximately. He states that his father about 1 month ago, however, he acknowledges that he was drinking before his father , stating that his father's was anticipated. He was seen in this ED for the same complaint on 02/12/2020, where he was found to be both hypokalemic and hypomagnesemic. He was given electrolyte replacement, pain medication, and antinausea medication. He was seen again just 2 days ago, , 02/16/2020, with the same complaint. Reported drinking up to about 5 hours prior to presentation. He was hemodynamically stable, afebrile, saturating 97% on room air. His physical exam was remarkable for tenderness to his upper abdomen. Work-up included a CBC, CMP, magnesium level, lipase level, a PT/INR, an EtOH level, an influenza swab, and a swab for the SARS-CoV-2 virus. His work-up was remarkable for leukopenia of 2.71, hypokalemia of 2.6, hypomagnesemia of 1.4, elevated transaminases and alkaline phosphatase, and elevated lipase of 914, and an alcohol level elevated at 0.43. He was given IV fluid, IV magnesium, IV potassium, IV Dilaudid, IV Ativan, IV Reglan, IV Zofran, and oral folic acid and thiamine. He was discharged home the following morning, acknowledging that he did not want to pursue alcohol treatment or counseling. He was advised to at least cut back on his alcohol consumption. The patient now returns to the ED stating that he has continued to have upper abdominal pain, along with nausea and vomiting, although he states that he has been able to keep down some food and drink. No recent fever or cough. He states that he feels constipated, although he occasionally has non-bloody diarrhea. He states that he has dysuria on occasion, that he thinks is normal. As before, the patient states that he does not really want to stop drinking. He is willing to be given a phone number for behavioral health, but he does not intend to go. He states that he would rather work on it on his own. He is aware that his symptoms are due to his drinking, and is aware that by giving him pain medication, we are merely masking his symptoms without addressing the underlying cause. Nevertheless, the patient asked that I do just that. The patient states that he smokes marijuana near-daily, most recently about 4 hours prior to coming to the ED. He also states that he smokes methamphetamine infrequently, but acknowledges that he did smoke it 2 days ago, 02/16/2020. Here in the ED, the patient's initial BP is found to be slightly elevated at 135/99, otherwise, he is hemodynamically stable, afebrile, saturating 99% on room air. Other than his recurrent abdominal pain, nausea, and vomiting, the patient denies having a recent fever, chills, sore throat, ear pain, nasal or sinus congestion, cough, dyspnea, chest pain, palpitations, nausea, vomiting, constipation, diarrhea, abdominal pain, urinary symptoms, recent weight gain or weight loss, recent bloody bowel movements or black bowel movements, recent joint aches, headaches, or rashes. The patient does not have a PCP. He has not received an influenza vaccine this season, but agreed to receive one here [facility]. Right Abdominal Pain Score (Numeric/FACES): 8 - Related Data Allergies Allergy/AdvReac Type Severity Reaction Status Date / Time No Known Allergies Allergy Verified 02/18/20 19:32 Home Meds: Home Meds Amylase/Lipase/Protease [Pancrelipase DR 5,000 Units] 1 cap PO TIDMEALS 08/23/19 [History] QUEtiapine [SEROquel] 75 mg PO BEDTIME 08/23/19 [History] Ascorbic Acid [Vitamin C] 1,000 mg PO DAILY 09/14/19 [History] Cyanocobalamin (Vitamin B12) [Vitamin B12] 1,000 mcg PO DAILY 09/14/19 [History] Ondansetron [Zofran] 4 mg BUCCAL Q6H PRN #8 tab 02/12/20 [Rx] Past Medical History Cardiovascular History: Reports: Hypertension (untreated) Gastrointestinal History: Reports: Pancreatitis (alcoholic) Psychiatric History: Reports: Addiction (alcohol), Anxiety (untreated), Depression (untreated) - Past Surgical History HEENT Surgical History: Reports: Oral Surgery (upper dentures) Musculoskeletal Surgical History: Reports: Other (See Below) (Right knee open ACL repair) Social & Family History - Family History Family Medical History: No Pertinent Family History HEENT: Reports: Hearing Impairment Neurological: Reports: Alzheimers Disease Other Oncologic Family History: denies family history - Tobacco Use Tobacco Use Status *Q: Current Every Day Tobacco User Years of Tobacco use: 22 Packs/Tins Daily: 2 Packs/Tins Daily Comment: Down from 3 ppd - Caffeine Use Caffeine Use: Reports: Coffee, Energy Drinks, Soda - Alcohol Use Alcohol Use History: Yes Days Per Week of Alcohol Use: 7 Number of Drinks Per Day: 20 Total Drinks Per Week: 140 Alcohol Use Frequency: Binges - Recreational Drug Use Recreational Drug Use: Yes Drug Use in Last 12 Months: Yes Recreational Drug Type: Reports: Marijuana/Hashish (smokes near-daily), Methamphetamine (smokes infrequently, last 02/16/2020) - Living Situation & Occupation Living situation: Reports: Single, with Family (Parents) 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 ED EXAM, GI/ABD - Physical Exam Exam: See Below Exam Limited By: No Limitations General Appearance: Alert, WD/WN, No Apparent Distress Eyes: Bilateral: Normal Appearance, EOMI Ears: Normal External Exam, Hearing Grossly Normal Nose: Normal Inspection Throat/Mouth: Normal Inspection, Normal Lips, Normal Voice, No Airway Compromise Head: Atraumatic, Normocephalic Neck: Normal Inspection, Full Range of Motion Respiratory/Chest: No Respiratory Distress, Lungs Clear, Normal Breath Sounds, No Accessory Muscle Use Cardiovascular: Normal Peripheral Pulses, Regular Rate, Rhythm, No Edema, No Gallop, No JVD, No Murmur, No Rub GI/Abdominal Exam: Normal Bowel Sounds, Soft, No Organomegaly, No Distention, No Abnormal Bruit, No Mass, Tender (Primarily the upper abdomen, with no significant tenderness to the lower abdomen) Back Exam: Normal Inspection, Full Range of Motion Extremities: Normal Inspection, Normal Range of Motion, No Pedal Edema, Normal Capillary Refill Neurological: Alert, Oriented, Normal Cognition, No Motor/Sensory Deficits Psychiatric: Normal Affect Skin Exam: Warm, Dry, Intact, Normal Color, No Rash Course - Vital Signs Last Recorded V/S: Last Vital Signs Temp 36.6 C 02/18/20 19:27 Pulse 89 02/18/20 19:27 Resp 12 02/18/20 19: BP 135/99 H 02/18/20 19: Pulse Ox 99 02/18/20 19:27 - Orders/Labs/Meds Orders: Active Orders 24 hr Category Date Time Status Sodium Chloride 0.9% [Normal Saline] 1,000 ml Med 02/18/20 20:15 Active IV ASDIRECTED Sodium Chloride 0.9% [Normal Saline] 1,000 ml Med 02/19/20 03:00 Active IV ASDIRECTED Medication Orders Sodium Chloride (Normal Saline) 1,000 mls @ 150 mls/hr IV ASDIRECTED BART Last Admin: 02/18/20 20:19 Dose: 150 mls/hr Documented by: YOLI Sodium Chloride (Normal Saline) 1,000 mls @ 150 mls/hr IV ASDIRECTED BART Last Admin: 02/19/20 03:01 Dose: 150 mls/hr Documented by: YOLI Labs: Laboratory Tests 02/18/20 02/18/20 02/18/20 Range/Units 20:05 20:05 20:20 WBC 3.24 L (4.23-9.07) K/mm3 RBC 4.69 (4.63-6.08) M/mm3 Hgb 13.4 L (13.7-17.5) gm/dl Hct 40.1 (40.1-51.0) % MCV 85.5 (79.0-92.2) fl MCH 28.6 (25.7-32.2) pg MCHC 33.4 (32.2-35.5) g/dl RDW Std Deviation 51.8 H (35.1-43.9) fL Plt Count 98 L (163-337) K/mm3 MPV 10.5 (9.4-12.3) fl Neutrophils % (Manual) 53 (40-60) % Band Neutrophils % 0 (0-10) % Lymphocytes % (Manual) 43 H (20-40) % Atypical Lymphs % 0 % Monocytes % (Manual) 3 (2-10) % Eosinophils % (Manual) 0 L (0.8-7.0) % Basophils % (Manual) 1 (0.2-1.2) Platelet Estimate Decreased Plt Morphology Comment Back Line Cook Hypochromasia 1+ slight Poikilocytosis 1+ slight Anisocytosis 2+ Target Cells 1+ slight RBC Morph Comment Normal Sodium 145 (136-145) mEq/L Potassium 2.7 L (3.5-5.1) mEq/L Chloride 105 (98-107) mEq/L Carbon Dioxide 34 H (21-32) mEq/L Anion Gap 8.7 (5-15) BUN 4 L (7-18) mg/dL Creatinine 0.9 (0.7-1.3) mg/dL Est Cr Clr Drug Dosing 109.30 mL/min Estimated GFR (MDRD) > 60 (>60) mL/min BUN/Creatinine Ratio 4.4 L (14-18) Glucose 98 (74-106) mg/dL Calcium 8.2 L (8.5-10.1) mg/dL Magnesium 1.5 L (1.8-2.4) mg/dl Total Bilirubin 0.5 (0.2-1.0) mg/dL AST 310 H (15-37) U/L ALT 113 H (16-63) U/L Alkaline Phosphatase 152 H (46-116) U/L Total Protein 6.7 (6.4-8.2) g/dl Albumin 3.1 L (3.4-5.0) g/dl Globulin 3.6 gm/dL Albumin/Globulin Ratio 0.9 L (1-2) Lipase 820 H (73-393) U/L Urine Color Yellow (Yellow) Urine Appearance Clear (Clear) Urine pH 8.5 H (5.0-8.0) Ur Specific [place] 1.015 (1.005-1.030) Urine Protein Negative (Negative) Urine Glucose (UA) Negative (Negative) Urine Ketones Negative (Negative) Urine Occult Blood Trace-lysed H (Negative) Urine Nitrite Negative (Negative) Urine Bilirubin Negative (Negative) Urine Urobilinogen 0.2 (0.2-1.0) Ur Leukocyte Esterase Negative (Negative) U Hyaline Cast (Auto) 0-5 (0-5) /lpf Urine RBC 0-5 (0-5) /hpf Urine WBC 0-5 (0-5) /hpf Ur Epithelial Cells 0-5 (0-5) /hpf Urine Bacteria Moderate H (FEW) /hpf Urine Mucus Few (FEW) /hpf Urine Opiates Screen (RRFQMB=727) Ur Buprenorphine Scrn (CUTOFF=10) Ur Oxycodone Screen (SEE0GE=957) Urine Methadone Screen (DDK5MR=325) Ur Propoxyphene Screen (ILEKTY=240) Ur Barbiturates Screen (CUKZOC=692) Ur Tricyclics Screen (HXYVNP=829) Ur Phencyclidine Scrn (CUTOFF=25) Ur Amphetamine Screen (DLWGBS=970) U Methamphetamines Scrn (PVNUNG=151) U Benzodiazepines Scrn (XTTHVN=147) U Cocaine Metab Screen (ERHFXA=353) U Marijuana (THC) Screen (CUTOFF=50) Ethyl Alcohol 0.43 (0.00) gm% 02/18/20 02/19/20 Range/Units 20:20 05:44 WBC (4.23-9.07) K/mm3 RBC (4.63-6.08) M/mm3 Hgb (13.7-17.5) gm/dl Hct (40.1-51.0) % MCV (79.0-92.2) fl MCH (25.7-32.2) pg MCHC (32.2-35.5) g/dl RDW Std Deviation (35.1-43.9) fL Plt Count (163-337) K/mm3 MPV (9.4-12.3) fl Neutrophils % (Manual) (40-60) % Band Neutrophils % (0-10) % Lymphocytes % (Manual) (20-40) % Atypical Lymphs % % Monocytes % (Manual) (2-10) % Eosinophils % (Manual) (0.8-7.0) % Basophils % (Manual) (0.2-1.2) Platelet Estimate Plt Morphology Comment Hypochromasia Poikilocytosis Anisocytosis Target Cells RBC Morph Comment Sodium (136-145) mEq/L Potassium 3.7 (3.5-5.1) mEq/L Chloride (98-107) mEq/L Carbon Dioxide (21-32) mEq/L Anion Gap (5-15) BUN (7-18) mg/dL Creatinine (0.7-1.3) mg/dL Est Cr Clr Drug Dosing mL/min Estimated GFR (MDRD) (>60) mL/min BUN/Creatinine Ratio (14-18) Glucose (74-106) mg/dL Calcium (8.5-10.1) mg/dL Magnesium (1.8-2.4) mg/dl Total Bilirubin (0.2-1.0) mg/dL AST (15-37) U/L ALT (16-63) U/L Alkaline Phosphatase (46-116) U/L Total Protein (6.4-8.2) g/dl Albumin (3.4-5.0) g/dl Globulin gm/dL Albumin/Globulin Ratio (1-2) Lipase (73-393) U/L Urine Color (Yellow) Urine Appearance (Clear) Urine pH (5.0-8.0) Ur Specific [place] (1.005-1.030) Urine Protein (Negative) Urine Glucose (UA) (Negative) Urine Ketones (Negative) Urine Occult Blood (Negative) Urine Nitrite (Negative) Urine Bilirubin (Negative) Urine Urobilinogen (0.2-1.0) Ur Leukocyte Esterase (Negative) U Hyaline Cast (Auto) (0-5) /lpf Urine RBC (0-5) /hpf Urine WBC (0-5) /hpf Ur Epithelial Cells (0-5) /hpf Urine Bacteria (FEW) /hpf Urine Mucus (FEW) /hpf Urine Opiates Screen Negative (POMTNV=172) Ur Buprenorphine Scrn Negative (CUTOFF=10) Ur Oxycodone Screen Negative (AAL1KL=675) Urine Methadone Screen Negative (FZW4XL=751) Ur Propoxyphene Screen Negative (RYAWTD=040) Ur Barbiturates Screen Negative (AQPROQ=946) Ur Tricyclics Screen Negative (JBEVOG=923) Ur Phencyclidine Scrn Negative (CUTOFF=25) Ur Amphetamine Screen Negative (XQJMLN=872) U Methamphetamines Scrn Negative (SDOKKM=567) U Benzodiazepines Scrn Presumptive positive H (NXPVLA=054) U Cocaine Metab Screen Negative (GSDXLD=553) U Marijuana (THC) Screen Presumptive positive H (CUTOFF=50) Ethyl Alcohol (0.00) gm% Meds: Medications Generic Name Dose Route Start Last Admin Trade Name Rosa PRN Reason Stop Dose Admin Sodium Chloride 1,000 mls @ 150 mls/hr 02/18/20 20:15 02/18/20 20:19 Normal Saline IV 150 mls/hr ASDIRECTED BART Administration Sodium Chloride 1,000 mls @ 150 mls/hr 02/19/20 03:00 02/19/20 03:01 Normal Saline IV 150 mls/hr ASDIRECTED BART Administration Discontinued Medications Generic Name Dose Route Start Last Admin Trade Name Rosa PRN Reason Stop Dose Admin Famotidine 40 mg 02/18/20 23:53 02/19/20 00:07 Pepcid IVPUSH 02/18/20 23:54 40 mg ONETIME STA Administration Hydromorphone HCl 1 mg 02/18/20 20:02 02/18/20 20:19 Dilaudid IVPUSH 02/18/20 20:03 1 mg ONETIME ONE Administration Hydromorphone HCl 1 mg 02/18/20 23:53 02/19/20 00:06 Dilaudid IVPUSH 02/18/20 23:54 1 mg ONETIME ONE Administration Hydromorphone HCl 0.5 mg 02/19/20 05:02 02/19/20 05:07 Dilaudid IVPUSH 02/19/20 05:03 0.5 mg ONETIME ONE Administration Magnesium Sulfate 4 gm/ Premix 50 mls @ 12.5 mls/hr 02/18/20 21:37 02/18/20 22:23 IV 02/19/20 01:36 12.5 mls/hr ONETIME ONE Administration Potassium Chloride 10 meq/ 100 mls @ 100 mls/hr 02/19/20 02:45 02/19/20 04:59 Premix IV 02/19/20 05:44 100 mls/hr Q1H BART Administration Ondansetron HCl 4 mg 02/18/20 20:02 02/18/20 20:19 Zofran IVPUSH 02/18/20 20:03 4 mg ONETIME ONE Administration Potassium Chloride 40 meq 02/19/20 02:36 02/19/20 02:53 Klor-Con M20 PO 02/19/20 02:37 40 meq ONETIME ONE Administration - Re-Assessments/Exams Free Text/Narrative Re-Assessment/Exam: 02/18/20 20:03 I have ordered several blood tests, a urinalysis, and urine drug screen. In the meantime, the patient will be given IV Dilaudid, IV Zofran, and IV fluid. I expect that we will keep him overnight until he is feeling better. 02/18/20 21:38 The patient's CBC is remarkable for leukopenia of 3.24, with a Hgb depressed at 13.4 and Hct normal at 40.1, and thrombocytopenia of 98,000. His CMP is remarkable for hypokalemia of 2.7, with an AST/ALT elevated at 310/113, respectively, and an alkaline phosphatase modestly elevated at 152, and the remainder of his CMP being unremarkable. He has hypomagnesemia of 1.5. His lipase is elevated at 820. His EtOH level is significantly elevated at 0.43. His urinalysis is unremarkable. His urine drug screen is positive for both benzodiazepines and marijuana, and is otherwise negative. While significantly elevated, the patient's lipase is not 3 times the upper limit of normal, therefore does not meet criterion for acute pancreatitis. Based on the above, I have ordered a 4 g Mg-rider. After that has finished infusing, he will be given a combination of oral and IV KCl. He will continue to receive IV fluid, and we will recheck a chemistry panel and magnesium level in the morning. 02/19/20 02:38 Notified by Lissy WILKINS that the patient's Mg-rider has finished infusing. I have therefore ordered 30 mEq of IV KCl be infused over 3 hours, and for him to receive 40 mEq of oral KCl now. We will recheck a potassium level at 05:45. 02/19/20 06:09 Following IV magnesium, with subsequent oral and IV potassium, the patient's repeat potassium level is now 3.7. I will discharge him home with a referral to [facility]. He will be given an influenza vaccine prior to discharge. Departure - Departure Time of Disposition: 06:10 Disposition: Home, Self-Care 01 Condition: Good Clinical Impression: Alcohol dependence, binge pattern, Hypomagnesemia, Hypokalemia, Marijuana use, Methamphetamine abuse Alcohol intoxication Qualifiers: Complication of substance-induced condition: uncomplicated Qualified Code(s): F10.920 - Alcohol use, unspecified with intoxication, uncomplicated - Discharge Information *PRESCRIPTION DRUG MONITORING PROGRAM REVIEWED*: Not Applicable *COPY OF PRESCRIPTION DRUG MONITORING REPORT IN PATIENT DUONG: Not Applicable Referrals: PCP,None [Primary Care Provider] - Forms: ED Department Discharge Additional Instructions: You were seen in the emergency room for recurrent upper abdominal pain with nausea and vomiting in the setting of continued heavy drinking. Work-up in the ER included several blood tests, a urinalysis, and a urine drug screen. Your magnesium level was found to be depressed at 1.5 and your potassium level depressed at 2.7. You were given supplemental IV magnesium in the ER followed by supplemental oral and IV potassium. Your repeat potassium level is now normal. Your alcohol level was found to be substantially elevated at 0.43. As you are aware, your symptoms are related to your heavy drinking. It is very important that you stop. We recommend that you follow-up at [facility]: [facility] [place] [facility] AileenRickie Mcgrath [phone] If any other problems, please do not hesitate to return to the ER. You were given an influenza vaccine during your ER visit. Sepsis Event Note (ED) - Evaluation Sepsis Screening Result: No Definite Risk - Focused Exam Vital Signs: Vital Signs Temp Pulse Resp BP Pulse Ox 02/18/20 19:27 36.6 C 89 12 135/99 H 99 - My Orders Last 24 Hours: My Active Orders 02/18/20 20:15 Sodium Chloride 0.9% [Normal Saline] 1,000 ml IV ASDIRECTED 02/19/20 03:00 Sodium Chloride 0.9% [Normal Saline] 1,000 ml IV ASDIRECTED - Assessment/Plan Last 24 Hours: My Active Orders 02/18/20 20:15 Sodium Chloride 0.9% [Normal Saline] 1,000 ml IV ASDIRECTED 02/19/20 03:00 Sodium Chloride 0.9% [Normal Saline] 1,000 ml IV ASDIRECTED
[2020-02-18] MEDS ORDERED: Sodium Chloride 0.9% 1,000 ML IV SCH (20:15)
[2020-02-18] MEDS ORDERED: Magnesium Sulfate/Water 4 GM in Premix Bag 1 BAG IV ONE (21:37)
[2020-02-18] MEDS ORDERED: Famotidine 20 MG/2 ML SDV IVPUSH STA (23:53)
[2020-02-19] MEDS ORDERED: Potassium Chloride 20 MEQ Tab.ER PO ONE (02:36)
[2020-02-19] MEDS: Potassium Chloride 10 MEQ in Premix Bag 1 BAG IV SCH ×3 (02:50→04:59)
[2020-02-19] MEDS ORDERED: Sodium Chloride 0.9% 1,000 ML IV SCH (03:00)
[2020-02-19] MEDS ORDERED: HYDROmorphone 0.5 MG/0.5 ML Syringe IVPUSH ONE (05:02)
[2020-02-19] MEDS ORDERED: FLU VACC QS2020-21(6MOS UP)/PF 60 MCG/0.5 ML SYRINGE IM ONE (06:15)
== END 2020-02-19 06:45 | disposition home or self-care (01) ==
LOC: JD.ED 19:17
DX: F10.220 Alcohol dependence with intoxication, uncomplicated (principal); E83.42 Hypomagnesemia; E87.6 Hypokalemia; F15.10 Other stimulant abuse, uncomplicated; F12.90 Cannabis use, unspecified, uncomplicated; F50.81 Binge eating disorder; I10 Essential (primary) hypertension; F41.9 Anxiety disorder, unspecified; F32.9 Major depressive disorder, single episode, unspecified; F17.210 Nicotine dependence, cigarettes, uncomplicated; Y90.0 Blood alcohol level of less than 20 mg/100 ml; Z23 Encounter for immunization; Z79.899 Other long term (current) drug therapy
CPT/HCPCS: 36415; 80053; 80306; 80307; 81001; 83690; 83735; 84132; 85007; 85027; 90471; 90686; 96365; 96366; 96367; 96375; 96376; 99284; A9270; J1170; J2405; J3475; J3480; J3490; J7030; G0008

== ENCOUNTER 2020-02-21 15:15 | Emergency (ER) | payer MEDICAID ==
[2020-02-21] MEDS ORDERED: Ondansetron 4 MG/2 ML SDV IVPUSH ONE (15:35)
[2020-02-21] MEDS ORDERED: HYDROmorphone 1 MG/ML Syringe IVPUSH ONE (15:35)
[2020-02-21] MEDS ORDERED: LORazepam 2 MG/ML SDV IV ONE (15:35)
[2020-02-21] MEDS ORDERED: Thiamine 200 MG/2 ML MDV IVPUSH ONE (15:36)
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
[2020-02-21] MEDS: Dextrose 5%-Lactated Ringers 1,000 ML IV SCH ×2 (15:57→17:15)
[2020-02-21] MEDS: Potassium Chloride 10 MEQ in Premix Bag 1 BAG IV SCH ×6 (17:14→21:53)
[2020-02-21] MEDS ORDERED: Magnesium Sulfate/Water 4 GM in Premix Bag 1 BAG IV ONE (17:36)
[2020-02-21] MEDS ORDERED: Dextrose 5%-Lactated Ringers 1,000 ML IV SCH (18:30)
[2020-02-21] MEDS ORDERED: Sodium Chloride 0.9% 1,000 ML IV ONE (21:31)
[2020-02-21] MEDS ORDERED: HYDROmorphone 0.5 MG/0.5 ML Syringe IVPUSH ONE (21:49)
[2020-02-21 22:02] VITALS: BP 143/94; PULSE 82
== END 2020-02-21 22:02 | disposition home or self-care (01) ==
LOC: JD.ED 15:15
DX: K29.20 Alcoholic gastritis without bleeding (principal); D72.819 Decreased white blood cell count, unspecified; K85.90 Acute pancreatitis without necrosis or infection, unspecified; E83.42 Hypomagnesemia; E87.6 Hypokalemia; E87.2 Acidosis; I10 Essential (primary) hypertension; F41.9 Anxiety disorder, unspecified; F32.9 Major depressive disorder, single episode, unspecified; Z79.899 Other long term (current) drug therapy
CPT/HCPCS: 36415; 80053; 80306; 80307; 82009; 82977; 83605; 83690; 83735; 83930; 85025; 85610; 85730; 96365; 96366; 96367; 96368; 96375; 96376; 99284; J1170; J2060; J2405; J3411; J3475; J3480; J7030; J7121

== ENCOUNTER 2020-02-28 21:59 | Emergency (ER) | payer MEDICAID ==
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
[2020-02-28] MEDS ORDERED: Lactated Ringers 1,000 ML IV ONE (23:25)
[2020-02-28] MEDS ORDERED: HYDROmorphone 0.5 MG/0.5 ML Syringe IVPUSH ONE (23:25)
[2020-02-28] MEDS ORDERED: Ondansetron 4 MG/2 ML SDV IVPUSH ONE (23:27)
[2020-02-28] MEDS ORDERED: Pantoprazole 40 MG Vial IVPUSH ONE (23:31)
[2020-02-28] MEDS ORDERED: Sucralfate 1 GM Tab PO ONE (23:31)
[2020-02-28] MEDS ORDERED: Sucralfate Suspension 1 GM/10 ML Cup ONE (23:41)
[2020-02-29] MEDS ORDERED: HYDROmorphone 0.5 MG/0.5 ML Syringe IVPUSH ONE (00:59)
[2020-02-29] MEDS ORDERED: Magnesium Oxide 400 MG Tab PO ONE (00:59)
[2020-02-29] MEDS: Potassium Chloride 10 MEQ in Premix Bag 1 BAG IV SCH ×4 (01:08→04:07)
[2020-02-29] MEDS ORDERED: Acetaminophen/HYDROcodone 325-5 MG Tab PO ONE (04:49)
== END 2020-02-29 06:47 | disposition home or self-care (01) ==
LOC: JD.ED 21:59
DX: K85.20 Alcohol induced acute pancreatitis without necrosis or infection (principal); I10 Essential (primary) hypertension; F41.9 Anxiety disorder, unspecified; F32.9 Major depressive disorder, single episode, unspecified; Z79.899 Other long term (current) drug therapy
CPT/HCPCS: 36415; 80053; 80307; 83690; 83735; 85007; 85027; 96365; 96366; 96375; 96376; 99284; A9270; C9113; J1170; J2405; J3480; J7120

== ENCOUNTER 2020-03-03 23:24 | Emergency (ER) | payer MEDICAID, OTHER ==
[2020-03-03 23:35] VITALS: BP 142/102; PULSE 79
[2020-03-03] MEDS ORDERED: Ondansetron 4 MG/2 ML SDV IVPUSH ONE (23:42)
[2020-03-03] MEDS ORDERED: Sodium Chloride 0.9% 1,000 ML IV STA (23:42)
[2020-03-03] MEDS ORDERED: Sodium Chloride 0.9% 10 ML Syringe FLUSH PRN (23:42)
[2020-03-03] MEDS ORDERED: HYDROmorphone 1 MG/ML Syringe IVPUSH ONE (23:43)
[2020-03-03] MEDS ORDERED: Pantoprazole 40 MG Vial IVPUSH ONE (23:43)
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
== END 2020-03-04 01:36 | disposition home or self-care (01) ==
LOC: JD.ED 23:24
DX: K29.20 Alcoholic gastritis without bleeding (principal); F10.120 Alcohol abuse with intoxication, uncomplicated; I10 Essential (primary) hypertension; F41.9 Anxiety disorder, unspecified; F32.9 Major depressive disorder, single episode, unspecified; F17.210 Nicotine dependence, cigarettes, uncomplicated; Z79.899 Other long term (current) drug therapy
CPT/HCPCS: 36415; 80053; 80307; 83690; 85025; 96374; 96375; 99284; C9113; J1170; J2405; J7030

== ENCOUNTER 2020-03-06 18:39 | Emergency (ER) | payer OTHER ==
[2020-03-06] MEDS ORDERED: Sodium Chloride 0.9% 1,000 ML IV ONE (19:37)
[2020-03-06] MEDS ORDERED: Ondansetron 4 MG/2 ML SDV IVPUSH ONE (19:37)
[2020-03-06] MEDS ORDERED: HYDROmorphone 0.5 MG/0.5 ML Syringe IVPUSH ONE ×2 (19:37→22:14)
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
[2020-03-06] MEDS ORDERED: Magnesium Sulfate/Water 4 GM in Premix Bag 1 BAG IV STA (22:09)
[2020-03-07] MEDS ORDERED: Sodium Chloride 0.9% 1,000 ML IV SCH (03:15)
[2020-03-07] MEDS: Potassium Chloride 10 MEQ in Premix Bag 1 BAG IV SCH ×4 (04:35→08:25)
[2020-03-07 08:51] VITALS: PULSE 54
--- NOTE | 2020-03-07 08:58 | CR ---
Abdomen: Upright view of the abdomen was obtained. Comparison: Prior abdominal x-ray of 11/22/18. Bowel gas pattern appears within normal limits. Slight scoliosis is noted within the spine. No free air is seen. Calcification within the left pelvis is most likely due to phlebolith. Impression: 1. Nothing acute is seen. Diagnostic code #2
--- NOTE | 2020-03-07 09:01 | CT ---
CT abdomen and pelvis Technique: Multiple axial sections were obtained from above the dome of the diaphragm inferiorly through the pubic symphysis. Intravenous and oral contrast was utilized. Reconstructed coronal and sagittal images were obtained. Comparison: Previous CT abdomen and pelvis exam of 08/28/19. Findings: Visualized lung bases show nothing acute. Severe fatty infiltration is noted within the liver which has worsened from prior exam. Adrenal glands show no nodule. Kidneys enhance symmertically and show no abnormality. Delayed images show contrast throughout both ureters into the bladder. Gallbladder contains no calcified gallstones. Pancreas shows mild surrounding inflammatory change compatible with pancreatitis. There is a focal area of wall thickening with slight surrounding inflammatory change near the junction of the transverse and descending colon. This may represent a focal colitis or additionally an area of secondary inflammation from pancreatitis. Aorta shows no aneurysm. No retroperitoneal adenopathy or mesenteric abnormalities are appreciated. Appendix is seen which is normal. No pelvic mass or adenopathy is seen. No free fluid of or other inflammatory change is appreciated. Bone window settings were reviewed which show no acute osseous finding. Impression: 1. Findings of mild pancreatitis. Inflammatory change within the adjacent colon at the junction of the descending and transverse colon. Colonic inflammatory change may represent a secondary colitis or represent inflammatory change from the adjacent pancreatitis. 2. Severe fatty infiltration within the liver which has worsened from prior exam. 3. No additional abnormality is appreciated. Diagnostic code #3 I agree with preliminary report from [facility], finalized on 03/07/20, 2:56 AM SIGNALS INTELLIGENCE SUPERINTENDENT
[2020-03-07 09:40] VITALS: BP 148/98
== END 2020-03-07 09:38 | disposition home or self-care (01) ==
LOC: SUPCPDRO 18:39 → JD.ED 18:39
DX: K86.0 Alcohol-induced chronic pancreatitis (principal); F10.220 Alcohol dependence with intoxication, uncomplicated; E87.6 Hypokalemia; E83.42 Hypomagnesemia; F15.10 Other stimulant abuse, uncomplicated; F50.81 Binge eating disorder; R74.8 Abnormal levels of other serum enzymes; I10 Essential (primary) hypertension; F41.9 Anxiety disorder, unspecified; F32.9 Major depressive disorder, single episode, unspecified; F17.210 Nicotine dependence, cigarettes, uncomplicated; Z79.899 Other long term (current) drug therapy; Z20.828 Contact with and (suspected) exposure to other viral communicable diseases
CPT/HCPCS: 36415; 74018; 74018-26; 74177; 74177-26; 80053; 80306; 80307; 81001; 83605; 83690; 83735; 85007; 85027; 96365; 96366; 96367; 96375; 96376; 99284-25; J1170; J2405; J3475; J3480; J7030; U0002

== ENCOUNTER 2020-03-29 12:15 | Emergency (ER) | payer OTHER ==
[2020-03-29] MEDS ORDERED: Sodium Chloride 0.9% 1,000 ML IV ONE ×2 (12:55→14:27)
[2020-03-29] MEDS ORDERED: HYDROmorphone 1 MG/ML Syringe IVPUSH ONE ×2 (12:55→15:26)
[2020-03-29] MEDS ORDERED: Ondansetron 4 MG/2 ML SDV IVPUSH ONE (12:55)
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
[2020-03-29] MEDS ORDERED: Pantoprazole 80 MG in Sodium Chloride 0.9% 100 ML IV ONE (13:52)
[2020-03-29] MEDS ORDERED: Magnesium Sulfate/Water 2 GM/50 ML BAG IV SCH (14:15)
[2020-03-29] MEDS ORDERED: Magnesium Sulfate/Water 4 GM/100 ML BAG IV SCH (14:15)
[2020-03-29] MEDS ORDERED: Potassium Chloride 20 MEQ Tab.ER PO ONE (14:23)
[2020-03-29] MEDS ORDERED: Magnesium Sulfate/Water 50 ML ONE (14:29)
[2020-03-29] MEDS ORDERED: Sodium Chloride 0.9% 250 ML IV SCH (14:30)
[2020-03-29] MEDS ORDERED: fentaNYL 100 MCG/2 ML SDV IVPUSH ONE (18:41)
[2020-03-29 19:01] VITALS: BP 129/94; PULSE 81
== END 2020-03-29 19:26 | disposition home or self-care (01) ==
LOC: JD.ED 12:15
DX: E87.6 Hypokalemia (principal); E83.42 Hypomagnesemia; F10.10 Alcohol abuse, uncomplicated; I10 Essential (primary) hypertension; Y90.7 Blood alcohol level of 200-239 mg/100 ml; Z79.899 Other long term (current) drug therapy; Z72.0 Tobacco use
CPT/HCPCS: 36415; 80053; 80179; 80306; 82150; 83690; 83735; 85025; 96365; 96366; 96367; 96375; 96376; 99284; A9270; C9113; J1170; J2405; J3010; J3475; J7030

== ENCOUNTER 2020-03-30 17:52 | Emergency (ER) | payer OTHER ==
[2020-03-30 18:20] VITALS: BP 131/102
[2020-03-30] MEDS ORDERED: Sodium Chloride 0.9% 1,000 ML IV STA ×3 (18:46→20:47)
[2020-03-30] MEDS ORDERED: HYDROmorphone 0.5 MG/0.5 ML Syringe IVPUSH ONE ×3 (18:46→22:47)
[2020-03-30] MEDS ORDERED: LORazepam 2 MG/ML SDV IVPUSH ONE ×2 (18:46→20:20)
[2020-03-30] MEDS ORDERED: Ondansetron 4 MG/2 ML SDV IVPUSH ONE (18:46)
[2020-03-30] MEDS ORDERED: Sodium Chloride 0.9% 10 ML Syringe FLUSH PRN (18:46)
[2020-03-30] MEDS ORDERED: Iopamidol 612 MG/ML 100 ML Bottle IVPUSH ONE (19:10)
[2020-03-30] MEDS ORDERED: Sodium Chloride 0.9% 100 ML IV SCH (19:15)
[2020-03-30] MEDS ORDERED: Pantoprazole 40 MG Vial IVPUSH ONE (19:55)
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
[2020-03-30] MEDS ORDERED: Magnesium Sulfate/Water 4 GM in Premix Bag 1 BAG IV ONE (20:07)
[2020-03-30] MEDS ORDERED: Magnesium Sulfate/Water 50 ML ONE (20:26)
[2020-03-30] MEDS: Potassium Chloride 10 MEQ in Premix Bag 1 BAG IV SCH ×4 (20:41→23:44)
[2020-03-31] MEDS ORDERED: HYDROmorphone 0.5 MG/0.5 ML Syringe IVPUSH ONE
--- NOTE | 2020-04-01 10:46 | CT ---
CT abdomen and pelvis Technique: Multiple axial sections were obtained from above the dome of the diaphragm inferiorly to the pubic symphysis. Intravenous contrast was utilized. Delayed images were also obtained through the abdomen and pelvis. Coronal and sagittal images were reconstructed. Comparison: Prior CT abdomen and pelvis exam of 03/07/20. Findings: Visualized lung bases show nothing acute. Diffuse low density is noted within the liver compatible with severe fatty infiltration. Spleen appears within normal limits in size. Adrenal glands show no nodule. Gallbladder contains no calcified gallstones. Pancreas shows mild surrounding inflammatory type change which is felt to be slightly improved from prior exam compatible with decreasing pancreatitis. Kidneys show contrast enhancement without hydronephrosis or mass. Aorta shows no aneurysm. No retroperitoneal adenopathy or mesenteric abnormalities are appreciated. Appendix is seen which is normal. No pelvic mass or adenopathy is appreciated. Delayed images show contrast within nondilated ureters and within the bladder. Bone window settings were reviewed which show no acute osseous finding. Impression: 1. Findings compatible with mild improving pancreatitis. 2. Other findings as noted above are stable from prior CT exam. Diagnostic code #2
== END 2020-03-31 00:17 ==
LOC: JD.ED 17:52
DX: K86.0 Alcohol-induced chronic pancreatitis (principal); K92.2 Gastrointestinal hemorrhage, unspecified; F10.231 Alcohol dependence with withdrawal delirium; E83.42 Hypomagnesemia; E87.6 Hypokalemia; F15.10 Other stimulant abuse, uncomplicated; I10 Essential (primary) hypertension; Z20.822 Contact with and (suspected) exposure to COVID-19; Z79.899 Other long term (current) drug therapy; Z72.0 Tobacco use
CPT/HCPCS: 36415; 74177; 80053; 80179; 80306; 81001; 83690; 83735; 85025; 86140; 87635; 96365; 96366; 96367; 96368; 96375; 96376; 99285; C9113; J1170; J2060; J2405; J3475; J3480; J7030; Q9967; 99284; U0002

== ENCOUNTER 2020-04-21 17:18 | Emergency (ER) | payer OTHER ==
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
[2020-04-21] MEDS ORDERED: Metoclopramide 10 MG/2 ML SDV IVPUSH ONE (17:42)
[2020-04-21] MEDS ORDERED: LORazepam 2 MG/ML SDV IV ONE (17:42)
[2020-04-21] MEDS ORDERED: HYDROmorphone 1 MG/ML Syringe IVPUSH ONE (17:42)
[2020-04-21] MEDS ORDERED: Dextrose 5%-Lactated Ringers 1,000 ML IV SCH (17:45)
[2020-04-21] MEDS ORDERED: Thiamine 200 MG/2 ML MDV IVPUSH ONE (17:57)
[2020-04-21] MEDS ORDERED: Magnesium Sulfate/Water 4 GM in Premix Bag 1 BAG IV STA (19:26)
[2020-04-21 23:34] VITALS: BP 132/78; PULSE 83
--- NOTE | 2020-04-22 17:25 | CR ---
Abdomen: Supine view of abdomen was obtained. Comparison: Prior upright abdominal x-ray of 03/06/20. Calcification is noted within the left side of the pelvis compatible with a phlebolith. No other abnormal calcifications are appreciated. Scattered gas is noted within the small bowel and colon which appears within normal limits. No discrete soft tissue abnormality is seen. No acute osseous abnormality is seen. Impression: 1. Findings believed to be incidental as noted above. Diagnostic code #2
== END 2020-04-21 23:14 | disposition home or self-care (01) ==
LOC: JD.ED 17:18
DX: E83.42 Hypomagnesemia (principal); R10.12 Left upper quadrant pain; R10.13 Epigastric pain; F10.220 Alcohol dependence with intoxication, uncomplicated; R74.8 Abnormal levels of other serum enzymes; I10 Essential (primary) hypertension; Z72.0 Tobacco use; Y90.0 Blood alcohol level of less than 20 mg/100 ml
CPT/HCPCS: 36415; 74018; 80053; 80179; 80306; 81001; 82009; 83605; 83690; 83735; 85025; 85610; 85730; 96365; 96366; 96375; 99284; J1170; J2060; J2765; J3411; J3475; J7121

== ENCOUNTER 2020-05-01 16:39 | Emergency (ER) | payer MEDICAID, OTHER ==
[2020-05-01] MEDS ORDERED: Sodium Chloride 0.9% 10 ML Syringe FLUSH PRN (17:11)
[2020-05-01] MEDS ORDERED: Sodium Chloride 0.9% 1,000 ML IV ONE ×2 (17:11→18:42)
[2020-05-01] MEDS ORDERED: HYDROmorphone 1 MG/ML Syringe IVPUSH ONE (17:11)
[2020-05-01] MEDS ORDERED: Ketorolac 30 MG/ML SDV IVPUSH ONE (17:11)
[2020-05-01] MEDS ORDERED: Metoclopramide 10 MG/2 ML SDV IVPUSH ONE (17:11)
[2020-05-01] MEDS ORDERED: Alum Hydrox/Mag Hydrox/Simeth 30 ML, Lidocaine 2% 15 ML PO ONE ×2 (17:24)
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
[2020-05-01] MEDS ORDERED: Potassium Chloride 20 MEQ Tab.ER PO ONE (18:42)
[2020-05-01 20:51] VITALS: BP 139/105; PULSE 84
== END 2020-05-01 20:55 | disposition home or self-care (01) ==
LOC: JD.ED 16:39
DX: K29.20 Alcoholic gastritis without bleeding (principal); Y90.0 Blood alcohol level of less than 20 mg/100 ml; F10.10 Alcohol abuse, uncomplicated; E87.6 Hypokalemia; I10 Essential (primary) hypertension; Z72.0 Tobacco use
CPT/HCPCS: 36415; 80053; 80179; 83690; 85025; 96374; 96375; 99284; A9270; J1170; J1885; J2765; J7030

== ENCOUNTER 2020-05-03 20:52 | Emergency (ER) | payer MEDICAID ==
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
[2020-05-03] MEDS ORDERED: Thiamine 200 MG/2 ML MDV IVPUSH ONE (21:15)
[2020-05-03] MEDS ORDERED: Dextrose 5%-Lactated Ringers 1,000 ML IV SCH (21:15)
[2020-05-03] MEDS ORDERED: diphenhydrAMINE 50 MG/ML SDV IVPUSH ONE (21:31)
[2020-05-03] MEDS ORDERED: HYDROmorphone 0.5 MG/0.5 ML Syringe IVPUSH ONE (21:31)
[2020-05-03] MEDS ORDERED: Metoclopramide 10 MG/2 ML SDV IVPUSH ONE (21:31)
[2020-05-03] MEDS ORDERED: LORazepam 2 MG/ML SDV IV ONE (21:32)
[2020-05-03] MEDS ORDERED: Dextrose 5%-0.9% NaCl 1,000 ML IV SCH (23:00)
[2020-05-03] MEDS ORDERED: Magnesium Sulfate/Water 4 GM in Premix Bag 1 BAG IV ONE (23:16)
[2020-05-03] MEDS: Potassium Chloride 10 MEQ in Premix Bag 1 BAG IV SCH (23:46)
[2020-05-04] MEDS: Potassium Chloride 10 MEQ in Premix Bag 1 BAG IV SCH ×4 (00:46→03:14)
[2020-05-04] MEDS ORDERED: HYDROmorphone 0.5 MG/0.5 ML Syringe IVPUSH ONE (05:12)
[2020-05-04 05:21] VITALS: BP 124/75; PULSE 90
== END 2020-05-04 05:50 | disposition home or self-care (01) ==
LOC: JD.ED 20:52
DX: K29.20 Alcoholic gastritis without bleeding (principal); F10.20 Alcohol dependence, uncomplicated; D75.89 Other specified diseases of blood and blood-forming organs; F17.210 Nicotine dependence, cigarettes, uncomplicated; I10 Essential (primary) hypertension; Y90.8 Blood alcohol level of 240 mg/100 ml or more
CPT/HCPCS: 36415; 80053; 80179; 82009; 82977; 83690; 83735; 85025; 85610; 85730; 86140; 96365; 96366; 96368; 96375; 96376; 99284; J1170; J1200; J2060; J2765; J3411; J3475; J3480; J7042; J7121

== ENCOUNTER 2020-05-16 17:22 | Emergency (ER) | payer MEDICAID ==
[2020-05-16 17:33] VITALS: PULSE 95
[2020-05-16] MEDS ORDERED: Sodium Chloride 0.9% 1,000 ML IV STA (17:50)
[2020-05-16] MEDS ORDERED: Sodium Chloride 0.9% 1,000 ML IV SCH (19:30)
[2020-05-16] MEDS ORDERED: Potassium Chloride 20 MEQ Tab.ER PO ONE (19:39)
[2020-05-16] MEDS ORDERED: Alum Hydrox/Mag Hydrox/Simeth 30 ML, Lidocaine 2% 15 ML PO ONE ×2 (19:39)
[2020-05-16] MEDS ORDERED: HYDROmorphone 0.5 MG/0.5 ML Syringe IVPUSH ONE (19:41)
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
[2020-05-16 20:02] VITALS: BP 108/82
== END 2020-05-16 21:40 | disposition home or self-care (01) ==
LOC: JD.ED 17:22
DX: F10.120 Alcohol abuse with intoxication, uncomplicated (principal); R10.12 Left upper quadrant pain; R10.13 Epigastric pain; E87.6 Hypokalemia; I10 Essential (primary) hypertension; Z72.0 Tobacco use; Y90.8 Blood alcohol level of 240 mg/100 ml or more
CPT/HCPCS: 36415; 80053; 80306; 80307; 83605; 83690; 83735; 85025; 96374; 99284; A9270; J1170; J7030

== ENCOUNTER 2020-05-18 16:20 | Emergency (ER) | payer MEDICAID ==
[2020-05-18] MEDS ORDERED: Sodium Chloride 0.9% 10 ML Syringe FLUSH PRN (17:11)
[2020-05-18] MEDS ORDERED: HYDROmorphone 0.5 MG/0.5 ML Syringe IVPUSH ONE (17:12)
[2020-05-18] MEDS ORDERED: Sodium Chloride 0.9% 1,000 ML IV ONE ×2 (17:12→18:23)
[2020-05-18] MEDS ORDERED: Ondansetron 4 MG/2 ML SDV IVPUSH ONE (17:18)
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
[2020-05-18] MEDS ORDERED: Magnesium Sulfate/Water 2 GM in Premix Bag 1 BAG IV ONE (17:50)
[2020-05-18] MEDS ORDERED: Alum Hydrox/Mag Hydrox/Simeth 30 ML, Lidocaine 2% 15 ML PO ONE ×2 (17:53)
[2020-05-18] MEDS ORDERED: Potassium Chloride 20 MEQ Tab.ER PO ONE (17:53)
[2020-05-18 17:58] LABS: CORONAVIRUS COVID-19 NAA NEGATIVE (NEGATIVE)
[2020-05-18 19:14] VITALS: BP 130/93; PULSE 84
== END 2020-05-18 19:20 ==
LOC: JD.ED 16:20
DX: F10.10 Alcohol abuse, uncomplicated (principal); K29.20 Alcoholic gastritis without bleeding; K85.80 Other acute pancreatitis without necrosis or infection; I10 Essential (primary) hypertension; F17.210 Nicotine dependence, cigarettes, uncomplicated; Y90.0 Blood alcohol level of less than 20 mg/100 ml; Z20.822 Contact with and (suspected) exposure to COVID-19
CPT/HCPCS: 0240U; 36415; 80053; 80307; 83690; 83735; 85025; 96365; 96375; 99285; A9270; J1170; J2405; J3475; J7030; 99284

== ENCOUNTER 2020-06-25 15:23 | Emergency (ER) | payer MEDICAID ==
[2020-06-25] MEDS ORDERED: Metoclopramide 10 MG/2 ML SDV IVPUSH ONE (15:38)
[2020-06-25] MEDS ORDERED: LORazepam 2 MG/ML SDV IVPUSH ONE (15:38)
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
[2020-06-25] MEDS ORDERED: Dextrose 5%-Lactated Ringers 1,000 ML IV SCH ×2 (15:45→19:45)
[2020-06-25] MEDS ORDERED: Thiamine 200 MG/2 ML MDV IVPUSH ONE (17:03)
[2020-06-25] MEDS ORDERED: HYDROmorphone 1 MG/ML Syringe IVPUSH ONE (17:03)
[2020-06-25] MEDS ORDERED: HYDROmorphone 0.5 MG/0.5 ML Syringe IVPUSH ONE ×2 (17:04→19:42)
[2020-06-25] MEDS ORDERED: LORazepam 2 MG/ML SDV IV ONE (19:42)
[2020-06-25] MEDS ORDERED: Dicyclomine 10 MG Cap PO ONE (19:43)
[2020-06-25] MEDS ORDERED: Potassium Chloride 10 MEQ in Premix Bag 1 BAG IV SCH ×4 (19:45)
[2020-06-25] MEDS ORDERED: Magnesium Sulfate/Water 4 GM in Premix Bag 1 BAG IV ONE (20:14)
[2020-06-26 00:04] VITALS: BP 111/76; PULSE 60
== END 2020-06-25 23:50 | disposition home or self-care (01) ==
LOC: JD.ED 15:23
DX: K86.0 Alcohol-induced chronic pancreatitis (principal); F10.129 Alcohol abuse with intoxication, unspecified; I10 Essential (primary) hypertension; D75.89 Other specified diseases of blood and blood-forming organs; Y90.8 Blood alcohol level of 240 mg/100 ml or more
CPT/HCPCS: 36415; 80053; 80307; 83690; 83735; 85025; 85610; 85730; 86140; 96365; 96366; 96367; 96375; 96376; 99284; A9270; J1170; J2060; J2765; J3411; J3475; J3480; J7121

== ENCOUNTER 2020-09-12 19:15 | Emergency (ER) | payer MEDICAID ==
[2020-09-12 19:32] VITALS: BP 160/110; PULSE 128
[2020-09-12] MEDS ORDERED: Sodium Chloride 0.9% 1,000 ML IV ONE ×2 (19:46→21:09)
[2020-09-12] MEDS ORDERED: Ondansetron 4 MG/2 ML SDV IVPUSH ONE (19:46)
[2020-09-12] MEDS ORDERED: Dicyclomine 20 MG/2 ML SDV IM ONE (19:49)
[2020-09-12] MEDS ORDERED: Thiamine 200 MG/2 ML MDV IVPUSH STA (19:50)
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
[2020-09-12 20:52] LABS: ACETAMINOPHEN 0 ug/mL (10-30)
[2020-09-12] MEDS ORDERED: Magnesium Sulfate/Water 4 GM in Premix Bag 1 BAG IV ONE (21:07)
[2020-09-13] MEDS ORDERED: Sodium Chloride 0.9% 1,000 ML IV ONE ×2 (00:47→03:10)
[2020-09-13] MEDS: Potassium Chloride 10 MEQ in Premix Bag 1 BAG IV SCH ×4 (01:04→04:05)
[2020-09-13] MEDS ORDERED: Sodium Chloride 0.9% 1,000 ML IV SCH (03:15)
== END 2020-09-13 06:13 | disposition home or self-care (01) ==
LOC: JD.ED 19:15
DX: F10.229 Alcohol dependence with intoxication, unspecified (principal); E87.6 Hypokalemia; E83.42 Hypomagnesemia; F15.10 Other stimulant abuse, uncomplicated; R74.01 Elevation of levels of liver transaminase levels; I10 Essential (primary) hypertension; Z72.0 Tobacco use; Z79.899 Other long term (current) drug therapy; Y90.0 Blood alcohol level of less than 20 mg/100 ml
CPT/HCPCS: 36415; 80053; 80143; 80179; 80306; 80307; 83605; 83690; 83735; 85007; 85027; 96365; 96366; 96367; 96372; 96375; 99284; J0500; J2405; J3411; J3475; J3480; J7030

== ENCOUNTER 2020-09-28 01:47 | Emergency (ER) | payer MEDICAID ==
[2020-09-28 02:00] VITALS: BP 147/89; PULSE 106
[2020-09-28] MEDS ORDERED: Thiamine 200 MG/2 ML MDV IVPUSH ONE (02:25)
[2020-09-28] MEDS ORDERED: Metoclopramide 10 MG/2 ML SDV IVPUSH ONE (02:25)
[2020-09-28] MEDS ORDERED: LORazepam 2 MG/ML SDV IVPUSH ONE ×2 (02:26→05:38)
[2020-09-28] MEDS ORDERED: HYDROmorphone 0.5 MG/0.5 ML Syringe IVPUSH ONE ×2 (02:27→05:38)
[2020-09-28] MEDS ORDERED: Dextrose 5%-Lactated Ringers 1,000 ML IV SCH ×2 (02:30→03:30)
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
[2020-09-28] MEDS ORDERED: Magnesium Sulfate/Water 4 GM in Premix Bag 1 BAG IV ONE (03:25)
[2020-09-28] MEDS: Potassium Chloride 10 MEQ in Premix Bag 1 BAG IV SCH ×4 (03:44→06:43)
== END 2020-09-28 13:05 | disposition home or self-care (01) ==
LOC: JD.ED 01:47
DX: F10.229 Alcohol dependence with intoxication, unspecified (principal); D70.9 Neutropenia, unspecified; E87.6 Hypokalemia; D69.6 Thrombocytopenia, unspecified; I10 Essential (primary) hypertension; Y90.5 Blood alcohol level of 100-119 mg/100 ml; Z72.0 Tobacco use
CPT/HCPCS: 36415; 80053; 80307; 81001; 83690; 83735; 85025; 85610; 85730; 86140; 96365; 96366; 96368; 96375; 99284; J1170; J2060; J2765; J3411; J3475; J3480; J7121

== ENCOUNTER 2020-11-16 20:26 | Emergency (ER) | payer MEDICAID ==
[2020-11-16 21:07] VITALS: BP 139/105; PULSE 97
[2020-11-16] MEDS ORDERED: Alum Hydrox/Mag Hydrox/Simeth 30 ML, Lidocaine 2% 15 ML PO STA ×2 (21:59)
[2020-11-16] MEDS ORDERED: Famotidine 20 MG/2 ML SDV IVPUSH STA (21:59)
[2020-11-16] MEDS ORDERED: Ondansetron 4 MG/2 ML SDV IVPUSH ONE (21:59)
[2020-11-16] MEDS ORDERED: Sodium Chloride 0.9% 1,000 ML IV ONE (21:59)
[2020-11-16] MEDS ORDERED: Dicyclomine 20 MG/2 ML SDV IM ONE (22:00)
[2020-11-16] MEDS ORDERED: Thiamine 200 MG/2 ML MDV IVPUSH STA (22:00)
--- NOTE | 2020-11-16 22:04 | EDM.PDOC ---
ED HPI GENERAL MEDICAL PROBLEM - General Chief Complaint: Drug or Alcohol Abuse Stated Complaint: DETOX Time Seen by Provider: 11/16/20 21:48 Source of Information: Reports: Patient History Limitations: Reports: No Limitations - History of Present Illness INITIAL COMMENTS - FREE TEXT/NARRATIVE: Mr. Foss is a pleasant 40-year-old man who now presents to the ED because of "alcoholism". He states that he has had 4 days of constant upper abdominal pain along with nausea, although no emesis. No recent constipation, diarrhea, urinary symptoms, or fever. The patient's upper abdominal pain is chronic, felt most likely due to gastritis related to his alcoholism. He has never undergone an EGD. The patient states that he last drank around 18:00 tonight. He is vague about how much he drinks daily, estimating about 3 to 4 cups, and he is even more vague about how much he had to drink today. He states that his last period of sobriety was about 1 to 2 months ago. Here in the ED, the patient's initial BP was found to be slightly elevated at 139/105, otherwise, he is hemodynamically stable, afebrile, saturating 100% on room air. Other than his abdominal pain and nausea, the patient denies having a recent fever, chills, sore throat, ear pain, nasal or sinus congestion, cough, dyspnea, chest pain, palpitations, vomiting, constipation, diarrhea, urinary symptoms, recent weight gain or weight loss, recent bloody bowel movements or black bowel movements, recent joint aches, headaches, or rashes. The patient states that he does not have a PCP, however, he has seen MARGO Forbes, in the past. He has not received a COVID vaccination. Abdomen Pain Score (Numeric/FACES): 8 - Related Data Allergies Allergy/AdvReac Type Severity Reaction Status Date / Time No Known Allergies Allergy Verified 11/16/20 21:07 Home Meds: Home Meds . [No Known Home Meds] 09/28/20 [History] Past Medical History HEENT History: Reports: Other (See Below) (upper dentures) Cardiovascular History: Reports: Hypertension Gastrointestinal History: Reports: Fatty Liver, Gastritis, GERD, GI Bleed, Pancreatitis Neurological History: Reports: Concussion Psychiatric History: Reports: Addiction (alcohol, methamphetamine), Anxiety, Depression Hematologic History: Reports: B12 Deficiency - Infectious Disease History Infectious Disease History: Reports: Chicken Pox - Past Surgical History HEENT Surgical History: Reports: Oral Surgery (dental extractions) Musculoskeletal Surgical History: Reports: Arthroscopic Knee (right) Social & Family History - Tobacco Use Tobacco Use Status *Q: Current Every Day Tobacco User Years of Tobacco use: 25 Packs/Tins Daily: 1 Packs/Tins Daily Comment: Down from 2 ppd - Caffeine Use Caffeine Use: Reports: Soda - Alcohol Use Alcohol Use History: Yes Alcohol Use Frequency: Daily - Recreational Drug Use Recreational Drug Use: Yes Drug Use in Last 12 Months: Yes Recreational Drug Type: Reports: Marijuana/Hashish, Methamphetamine - Living Situation & Occupation Living situation: Reports: with Family, Single Occupation: Unemployed ED ROS GENERAL - Review of Systems Review Of Systems: Comprehensive ROS is negative, except as noted in HPI. ED EXAM, GI/ABD - Physical Exam Exam: See Below Exam Limited By: No Limitations General Appearance: Alert, WD/WN, No Apparent Distress Eyes: Bilateral: Normal Appearance, EOMI Ears: Normal External Exam, Hearing Grossly Normal Nose: Normal Inspection Throat/Mouth: Normal Inspection, Normal Lips, Normal Voice, No Airway Compromise Head: Atraumatic, Normocephalic Neck: Normal Inspection, Full Range of Motion Respiratory/Chest: No Respiratory Distress, Lungs Clear, Normal Breath Sounds, No Accessory Muscle Use Cardiovascular: Normal Peripheral Pulses, Regular Rate, Rhythm, No Edema, No Gallop, No JVD, No Murmur, No Rub GI/Abdominal Exam: Normal Bowel Sounds, Soft, No Organomegaly, No Distention, No Abnormal Bruit, No Mass, Tender (Epigastrium only. Nontender elsewhere.) Back Exam: Normal Inspection, Full Range of Motion, NT Extremities: Normal Inspection, Normal Range of Motion, No Pedal Edema, Normal Capillary Refill Neurological: Alert, Oriented, Normal Cognition, No Motor/Sensory Deficits Psychiatric: Normal Affect Skin Exam: Warm, Dry, Intact, Normal Color, No Rash Course - Vital Signs Last Recorded V/S: Last Vital Signs Temp 36.3 C 11/16/20 21:04 Pulse 97 11/16/20 21:04 Resp 16 11/16/20 21:04 BP 139/105 H 11/16/20 21:04 Pulse Ox 100 11/16/20 21:04 - Orders/Labs/Meds Labs: Laboratory Tests 11/16/20 11/16/20 11/16/20 Range/Units 22:34 22:34 22:34 WBC 4.63 (4.23-9.07) K/mm3 RBC 5.27 (4.63-6.08) M/mm3 Hgb 12.7 L (13.7-17.5) gm/dl Hct 39.4 L (40.1-51.0) % MCV 74.8 L D (79.0-92.2) fl MCH 24.1 L (25.7-32.2) pg MCHC 32.2 (32.2-35.5) g/dl RDW Std Deviation 51.3 H (35.1-43.9) fL Plt Count 54 L (163-337) K/mm3 MPV TNP Neutrophils % (Manual) 53 (40-60) % Band Neutrophils % 0 (0-10) % Lymphocytes % (Manual) 39 (20-40) % Atypical Lymphs % 0 % Monocytes % (Manual) 8 (2-10) % Eosinophils % (Manual) 0 L (0.8-7.0) % Basophils % (Manual) 0 L (0.2-1.2) Platelet Estimate Decreased Hypochromasia 1+ slight Anisocytosis 1+ slight RBC Morph Comment Not Reportable Sodium 142 (136-145) mEq/L Potassium 2.8 L (3.5-5.1) mEq/L Chloride 101 (98-107) mEq/L Carbon Dioxide 34 H (21-32) mEq/L Anion Gap 9.8 (5-15) BUN 3 L (7-18) mg/dL Creatinine 0.7 (0.7-1.3) mg/dL Est Cr Clr Drug Dosing TNP Estimated GFR (MDRD) > 60 (>60) mL/min BUN/Creatinine Ratio 4.3 L (14-18) Glucose 98 (70-99) mg/dL Lactic Acid 2.7 H* (0.4-2.0) mmol/L Calcium 8.0 L (8.5-10.1) mg/dL Magnesium 1.2 L (1.8-2.4) mg/dL Total Bilirubin 0.4 (0.2-1.0) mg/dL AST 81 H (15-37) U/L ALT 31 (16-63) U/L Alkaline Phosphatase 97 (46-116) U/L Total Protein 7.5 (6.4-8.2) g/dl Albumin 3.5 (3.4-5.0) g/dl Globulin 4.0 gm/dL Albumin/Globulin Ratio 0.9 L (1-2) Lipase 196 (73-393) U/L Urine Opiates Screen (KLCKZI=667) Ur Buprenorphine Scrn (CUTOFF=10) Ur Oxycodone Screen (QZF2BO=608) Urine Methadone Screen (WUX3IF=986) Ur Propoxyphene Screen (DWFZGN=390) Ur Barbiturates Screen (LTCVVF=035) Ur Tricyclics Screen (HCGGCJ=963) Ur Phencyclidine Scrn (CUTOFF=25) Ur Amphetamine Screen (OTFPMU=936) U Methamphetamines Scrn (OIYXSX=106) U Benzodiazepines Scrn (WEGVOE=964) U Cocaine Metab Screen (SFDDZJ=799) U Marijuana (THC) Screen (CUTOFF=50) Ethyl Alcohol 0.40 (0.00) gm% 11/16/20 Range/Units 23:45 WBC (4.23-9.07) K/mm3 RBC (4.63-6.08) M/mm3 Hgb (13.7-17.5) gm/dl Hct (40.1-51.0) % MCV (79.0-92.2) fl MCH (25.7-32.2) pg MCHC (32.2-35.5) g/dl RDW Std Deviation (35.1-43.9) fL Plt Count (163-337) K/mm3 MPV Neutrophils % (Manual) (40-60) % Band Neutrophils % (0-10) % Lymphocytes % (Manual) (20-40) % Atypical Lymphs % % Monocytes % (Manual) (2-10) % Eosinophils % (Manual) (0.8-7.0) % Basophils % (Manual) (0.2-1.2) Platelet Estimate Hypochromasia Anisocytosis RBC Morph Comment Sodium (136-145) mEq/L Potassium (3.5-5.1) mEq/L Chloride (98-107) mEq/L Carbon Dioxide (21-32) mEq/L Anion Gap (5-15) BUN (7-18) mg/dL Creatinine (0.7-1.3) mg/dL Est Cr Clr Drug Dosing Estimated GFR (MDRD) (>60) mL/min BUN/Creatinine Ratio (14-18) Glucose (70-99) mg/dL Lactic Acid (0.4-2.0) mmol/L Calcium (8.5-10.1) mg/dL Magnesium (1.8-2.4) mg/dL Total Bilirubin (0.2-1.0) mg/dL AST (15-37) U/L ALT (16-63) U/L Alkaline Phosphatase (46-116) U/L Total Protein (6.4-8.2) g/dl Albumin (3.4-5.0) g/dl Globulin gm/dL Albumin/Globulin Ratio (1-2) Lipase (73-393) U/L Urine Opiates Screen Negative (EKLOKJ=110) Ur Buprenorphine Scrn Negative (CUTOFF=10) Ur Oxycodone Screen Negative (ONR1VQ=275) Urine Methadone Screen Negative (BAX6WQ=771) Ur Propoxyphene Screen Negative (BKQHYV=840) Ur Barbiturates Screen Negative (BEMBVN=849) Ur Tricyclics Screen Negative (LLNHDS=132) Ur Phencyclidine Scrn Negative (CUTOFF=25) Ur Amphetamine Screen Negative (IVSCGR=529) U Methamphetamines Scrn Negative (VSIGYP=251) U Benzodiazepines Scrn Negative (QXNUPZ=870) U Cocaine Metab Screen Negative (RMXNGA=639) U Marijuana (THC) Screen Negative (CUTOFF=50) Ethyl Alcohol (0.00) gm% Meds: Medications Discontinued Medications Generic Name Dose Route Start Last Admin Trade Name Freq PRN Reason Stop Dose Admin Al Hydroxide/Mg Hydroxide 30 0 ml 11/16/20 21:59 11/16/20 23:01 ml/ Lidocaine HCl 15 ml PO 11/16/20 22:00 45 ml ONETIME STA Administration Dicyclomine HCl 20 mg 11/16/20 22:00 11/16/20 23:27 Dicyclomine 20 Mg/2 Ml Sdv IM 11/16/20 22:01 20 mg ONETIME ONE Administration Famotidine 40 mg 11/16/20 21:59 11/16/20 23:02 Famotidine 20 Mg/2 Ml Sdv IVPUSH 11/16/20 22:00 40 mg ONETIME STA Administration Famotidine Confirm 11/16/20 23:18 Famotidine 20 Mg/2 Ml Sdv Administered 11/16/20 23:19 Dose 20 mg .ROUTE .STK-MED ONE Sodium Chloride 1,000 mls @ 999 mls/hr 11/16/20 21:59 11/16/20 23:03 Normal Saline IV 11/16/20 22:59 999 mls/hr ONETIME ONE Administration Magnesium Sulfate 4 gm/ Premix 50 mls @ 12.5 mls/hr 11/16/20 23:21 IV 11/17/20 03:20 ONETIME ONE Ondansetron HCl 4 mg 11/16/20 21:59 11/16/20 23:03 Ondansetron 4 Mg/2 Ml Sdv IVPUSH 11/16/20 22:00 4 mg ONETIME ONE Administration Thiamine HCl 100 mg 11/16/20 22:00 11/16/20 23:11 Thiamine 200 Mg/2 Ml Mdv IVPUSH 11/16/20 22:01 100 mg ONETIME STA Administration - Re-Assessments/Exams Free Text/Narrative Re-Assessment/Exam: 11/16/20 22:02 I have ordered a work-up that includes numerous blood tests, a urine drug screen, and, in case the patient needs to be admitted or transferred, a swab for the SARS-CoV-2 virus. In the meantime, the patient will be given a GI cocktail, along with IV Zofran, IV famotidine, IM Bentyl, IV thiamine, and IV fluid. 11/16/20 23:21 The patient's CBC is remarkable for an H/H depressed at 12.7/39.4, and thrombocytopenia 54,000, with remainder of his CBC being unremarkable. His CMP is remarkable for hypokalemia of 2.8, a bicarbonate elevated at 34, and an AST slightly elevated at 81 with an ALT normal at 31, the remainder of his CMP being unremarkable. His magnesium level is significantly depressed at 1.2. His lactic acid level is elevated at 2.7. His lipase level is within normal limits at 196. His EtOH level is significantly elevated at 0.40. Results of his urine drug screen and swab for the SARS-CoV-2 virus are still pending. The patient's elevated lactic acid level represents hyperlactemia, not lactic acidosis, as his bicarbonate is elevated, not depressed. Based on the above, I have ordered a 4 g Mg-rider. Once it has finished infusing, the patient will be treated with replacement KCl. 11/17/20 00:39 The patient's urine drug screen is negative. His swab for the SARS-CoV-2 virus has not been collected. Notified by Connie WILKINS that the patient wants to go home. His electrolyte abnormalities are too profound to ignore; if he wants to leave, it will have to be AMA. Departure - Departure Time of Disposition: 00:45 Disposition: Against Medical Advice 07 Condition: Good Clinical Impression: Alcohol intoxication, Hypokalemia, Hypomagnesemia, Thrombocytopenia, Hyperlactatemia - Discharge Information *PRESCRIPTION DRUG MONITORING PROGRAM REVIEWED*: Not Applicable *COPY OF PRESCRIPTION DRUG MONITORING REPORT IN PATIENT DUONG: Not Applicable Referrals: PCP,None [Primary Care Provider] - Forms: ED Department Discharge
[2020-11-16] MEDS ORDERED: Famotidine 20 MG/2 ML SDV ONE (23:18)
[2020-11-16] MEDS ORDERED: Magnesium Sulfate/Water 4 GM in Premix Bag 1 BAG IV ONE (23:21)
== END 2020-11-17 00:44 | disposition left against medical advice (07) ==
LOC: JD.ED 20:26
DX: F10.129 Alcohol abuse with intoxication, unspecified (principal); E87.6 Hypokalemia; E83.42 Hypomagnesemia; D69.6 Thrombocytopenia, unspecified; E87.2 Acidosis; Y90.2 Blood alcohol level of 40-59 mg/100 ml; I10 Essential (primary) hypertension; Z72.0 Tobacco use
CPT/HCPCS: 36415; 80053; 80306; 80307; 83605; 83690; 83735; 85007; 85027; 96372; 96374; 96375; 99284; A9270; J0500; J2405; J3411; J3490; J7030

== ENCOUNTER 2020-12-07 18:52 | Emergency (ER) | payer MEDICAID ==
[2020-12-07] MEDS ORDERED: Sodium Chloride 0.9% 10 ML Syringe FLUSH PRN (21:31)
[2020-12-07] MEDS ORDERED: HYDROmorphone 1 MG/ML Syringe IVPUSH STA (21:31)
[2020-12-07] MEDS ORDERED: Ondansetron 4 MG/2 ML SDV IVPUSH ONE (21:31)
[2020-12-07] MEDS ORDERED: Pantoprazole 40 MG Vial IVPUSH ONE (21:32)
[2020-12-07] MEDS ORDERED: Alum Hydrox/Mag Hydrox/Simeth 30 ML, Lidocaine 2% 15 ML PO ONE ×2 (21:32)
[2020-12-07] MEDS ORDERED: Sodium Chloride 0.9% 1,000 ML IV SCH (21:45)
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
[2020-12-07 23:53] VITALS: BP 133/95; PULSE 98
== END 2020-12-07 23:25 | disposition home or self-care (01) ==
LOC: JD.ED 18:52
DX: R10.10 Upper abdominal pain, unspecified (principal); F10.129 Alcohol abuse with intoxication, unspecified; I10 Essential (primary) hypertension; Z72.0 Tobacco use; Y90.5 Blood alcohol level of 100-119 mg/100 ml
CPT/HCPCS: 36415; 80053; 80307; 81001; 83690; 85025; 86140; 96374; 96375; 99284-25; A9270-GY; C9113; J1170; J2405; J7030

== ENCOUNTER 2021-01-22 19:52 | Emergency (ER) | payer MEDICAID ==
[2021-01-22 20:08] VITALS: BP 157/107; PULSE 79
[2021-01-22] MEDS ORDERED: Alum Hydrox/Mag Hydrox/Simeth 30 ML, Lidocaine 2% 15 ML PO STA ×2 (20:48)
[2021-01-22] MEDS ORDERED: Famotidine 20 MG/2 ML SDV IVPUSH STA (20:48)
[2021-01-22] MEDS ORDERED: Dicyclomine 20 MG/2 ML SDV IM ONE (20:49)
[2021-01-22] MEDS ORDERED: Sodium Chloride 0.9% 1,000 ML IV ONE ×2 (20:49→22:07)
[2021-01-22] MEDS ORDERED: Ondansetron 4 MG/2 ML SDV IVPUSH ONE (20:49)
[2021-01-22] MEDS ORDERED: Thiamine 200 MG/2 ML MDV IVPUSH STA (20:49)
--- NOTE | 2021-01-22 20:52 | EDM.PDOC ---
ED HPI GENERAL MEDICAL PROBLEM - General Chief Complaint: Abdominal Pain Stated Complaint: ABD PAIN Time Seen by Provider: 01/22/21 20:02 Source of Information: Reports: Patient History Limitations: Reports: No Limitations - History of Present Illness INITIAL COMMENTS - FREE TEXT/NARRATIVE: Mr. Foss is a pleasant 40-year-old man who now presents the ED stating that he has been suffering from upper abdominal pain for years, and is concerned that he might have pancreatitis, again. While he has had pancreatitis in the past, it is thought that his abdominal pain is primarily due to gastritis due to chronic daily alcoholism. He has never undergone an EGD. He states that he has cut back to drinking 2 to 3 days/week of about 2 glasses of few ounces whiskey, each. He states that he had 2 glasses today. No recent nausea or vomiting. The patient does not take any medications, for anything. The patient states that he would like to get into treatment, but missed an a ppointment with his PCP today, where he was supposed to arrange for medical clearance to go to treatment. Here in the ED tonight, the patient's initial BP is found to be modestly elevated at 157/107, otherwise, he is hemodynamically stable, afebrile, saturating 96% on room air. He states that his abdominal pain is severe, but appears to be relatively comfortable, in no acute distress. Other than his chronic abdominal pain, the patient denies having a recent fever, chills, sore throat, ear pain, nasal or sinus congestion, cough, dyspnea, chest pain, palpitations, nausea, vomiting, constipation, diarrhea, urinary symptoms, recent weight gain or weight loss, recent bloody bowel movements or black bowel movements, recent joint aches, headaches, or rashes. The patient's PCP is MARGO Kaur. He has not received a COVID vaccination, nor an influenza vaccination this season. Abdomen Pain Score (Numeric/FACES): 7 - Related Data Allergies Allergy/AdvReac Type Severity Reaction Status Date / Time No Known Allergies Allergy Verified 01/22/21 20:03 Home Meds: Home Meds . [No Known Home Meds] 09/28/20 [History] Past Medical History Cardiovascular History: Reports: Hypertension (untreated) Gastrointestinal History: Reports: Fatty Liver, Gastritis (untreated), GERD (untreated), GI Bleed, Pancreatitis Neurological History: Reports: Concussion Psychiatric History: Reports: Addiction (alcohol, methamphetamine), Anxiety (untreated), Depression (untreated) Hematologic History: Reports: B12 Deficiency - Infectious Disease History Infectious Disease History: Reports: Chicken Pox - Past Surgical History HEENT Surgical History: Reports: Oral Surgery (dental extractions) Other HEENT Surgeries/Procedures: wears upper dentures Musculoskeletal Surgical History: Reports: Arthroscopic Knee (right) Social & Family History - Tobacco Use Tobacco Use Status *Q: Current Every Day Tobacco User Years of Tobacco use: 25 Packs/Tins Daily: 1 Packs/Tins Daily Comment: Down from 2 ppd - Caffeine Use Caffeine Use: Reports: Soda - Alcohol Use Alcohol Use History: Yes Alcohol Use Frequency: Daily - Recreational Drug Use Recreational Drug Use: Yes Drug Use in Last 12 Months: Yes Recreational Drug Type: Reports: Marijuana/Hashish, Methamphetamine - Living Situation & Occupation Living situation: Reports: with Family, Single Occupation: Unemployed ED ROS GENERAL - Review of Systems Review Of Systems: Comprehensive ROS is negative, except as noted in HPI. ED EXAM, GI/ABD - Physical Exam Exam: See Below Exam Limited By: No Limitations General Appearance: Alert, No Apparent Distress, Thin Eyes: Bilateral: Normal Appearance, EOMI Ears: Normal External Exam, Hearing Grossly Normal Nose: Normal Inspection Throat/Mouth: Normal Inspection, Normal Lips, Normal Voice, No Airway Compromise Head: Atraumatic, Normocephalic Neck: Normal Inspection, Full Range of Motion Respiratory/Chest: No Respiratory Distress, Lungs Clear, Normal Breath Sounds, No Accessory Muscle Use Cardiovascular: Normal Peripheral Pulses, Regular Rate, Rhythm, No Edema, No Gallop, No JVD, No Murmur, No Rub GI/Abdominal Exam: Normal Bowel Sounds, Soft, No Organomegaly, No Distention, No Abnormal Bruit, No Mass, Tender (upper abdomen) Back Exam: Normal Inspection, Full Range of Motion, NT Extremities: Normal Inspection, Normal Range of Motion, No Pedal Edema, Normal Capillary Refill Neurological: Alert, Oriented, Normal Cognition, No Motor/Sensory Deficits Psychiatric: Normal Affect Skin Exam: Warm, Dry, Intact, Normal Color, No Rash Course - Vital Signs Last Recorded V/S: Last Vital Signs Temp 36.3 C 01/22/21 20:04 Pulse 79 01/22/21 20:04 Resp 15 01/22/21 20:04 BP 157/107 H 01/22/21 20:04 Pulse Ox 96 01/22/21 20:04 - Orders/Labs/Meds Labs: Laboratory Tests 01/22/21 01/22/21 01/22/21 Range/Units 20:54 20:54 20:54 WBC 8.35 (4.23-9.07) K/mm3 RBC 4.87 (4.63-6.08) M/mm3 Hgb 12.0 L D (13.7-17.5) gm/dl Hct 37.5 L (40.1-51.0) % MCV 77.0 L (79.0-92.2) fl MCH 24.6 L (25.7-32.2) pg MCHC 32.0 L (32.2-35.5) g/dl RDW Std Deviation 56.3 H (35.1-43.9) fL Plt Count 47 L (163-337) K/mm3 MPV 9.8 (9.4-12.3) fl Neutrophils % (Manual) 91 H (40-60) % Band Neutrophils % 0 (0-10) % Lymphocytes % (Manual) 5 L (20-40) % Atypical Lymphs % 0 % Monocytes % (Manual) 4 (2-10) % Eosinophils % (Manual) 0 L (0.8-7.0) % Basophils % (Manual) 0 L (0.2-1.2) Platelet Estimate Decreased Plt Morphology Comment Normal Hypochromasia 1+ slight Tear Drop Cells 1+ slight RBC Morph Comment Abnormal Sodium 142 (136-145) mEq/L Potassium 3.1 L (3.5-5.1) mEq/L Chloride 100 (98-107) mEq/L Carbon Dioxide 29 (21-32) mEq/L Anion Gap 16.1 H (5-15) BUN 6 L (7-18) mg/dL Creatinine 0.7 (0.7-1.3) mg/dL Est Cr Clr Drug Dosing 130.72 mL/min Estimated GFR (MDRD) > 60 (>60) mL/min BUN/Creatinine Ratio 8.6 L (14-18) Glucose 116 H (70-99) mg/dL Lactic Acid (0.4-2.0) mmol/L Calcium 7.6 L (8.5-10.1) mg/dL Magnesium 1.0 L (1.8-2.4) mg/dL Total Bilirubin 0.5 (0.2-1.0) mg/dL AST 97 H (15-37) U/L ALT 37 (16-63) U/L Alkaline Phosphatase 161 H (46-116) U/L C-Reactive Protein (<1.0) mg/dL Total Protein 7.5 (6.4-8.2) g/dl Albumin 3.0 L (3.4-5.0) g/dl Globulin 4.5 gm/dL Albumin/Globulin Ratio 0.7 L (1-2) Lipase 433 H (73-393) U/L Urine Opiates Screen (EKPSCY=630) Ur Buprenorphine Scrn (CUTOFF=10) Ur Oxycodone Screen (OBG4AU=021) Urine Methadone Screen (PDS7HG=598) Ur Propoxyphene Screen (EFDQOA=166) Ur Barbiturates Screen (MSVCLF=579) Ur Tricyclics Screen (CLVAPS=681) Ur Phencyclidine Scrn (CUTOFF=25) Ur Amphetamine Screen (LMZZAG=408) U Methamphetamines Scrn (RYHRXQ=268) U Benzodiazepines Scrn (YUJTDG=507) U Cocaine Metab Screen (COEDMQ=863) U Marijuana (THC) Screen (CUTOFF=50) Ethyl Alcohol 0.41 (0.00) gm% SARS-CoV-2 RNA (DL) Positive H (NEGATIVE) 01/22/21 01/22/21 01/23/21 Range/Units 20:54 21:11 00:11 WBC (4.23-9.07) K/mm3 RBC (4.63-6.08) M/mm3 Hgb (13.7-17.5) gm/dl Hct (40.1-51.0) % MCV (79.0-92.2) fl MCH (25.7-32.2) pg MCHC (32.2-35.5) g/dl RDW Std Deviation (35.1-43.9) fL Plt Count (163-337) K/mm3 MPV (9.4-12.3) fl Neutrophils % (Manual) (40-60) % Band Neutrophils % (0-10) % Lymphocytes % (Manual) (20-40) % Atypical Lymphs % % Monocytes % (Manual) (2-10) % Eosinophils % (Manual) (0.8-7.0) % Basophils % (Manual) (0.2-1.2) Platelet Estimate Plt Morphology Comment Hypochromasia Tear Drop Cells RBC Morph Comment Sodium (136-145) mEq/L Potassium (3.5-5.1) mEq/L Chloride (98-107) mEq/L Carbon Dioxide (21-32) mEq/L Anion Gap (5-15) BUN (7-18) mg/dL Creatinine (0.7-1.3) mg/dL Est Cr Clr Drug Dosing mL/min Estimated GFR (MDRD) (>60) mL/min BUN/Creatinine Ratio (14-18) Glucose (70-99) mg/dL Lactic Acid 3.5 H* (0.4-2.0) mmol/L Calcium (8.5-10.1) mg/dL Magnesium (1.8-2.4) mg/dL Total Bilirubin (0.2-1.0) mg/dL AST (15-37) U/L ALT (16-63) U/L Alkaline Phosphatase (46-116) U/L C-Reactive Protein 0.3 (<1.0) mg/dL Total Protein (6.4-8.2) g/dl Albumin (3.4-5.0) g/dl Globulin gm/dL Albumin/Globulin Ratio (1-2) Lipase (73-393) U/L Urine Opiates Screen Negative (TWLGGD=575) Ur Buprenorphine Scrn Negative (CUTOFF=10) Ur Oxycodone Screen Negative (VQJ5IP=087) Urine Methadone Screen Negative (MLS2MU=085) Ur Propoxyphene Screen Negative (GZYTPR=624) Ur Barbiturates Screen Negative (BGUKZC=152) Ur Tricyclics Screen Negative (ZDNKGQ=100) Ur Phencyclidine Scrn Negative (CUTOFF=25) Ur Amphetamine Screen Negative (DGKEMG=423) U Methamphetamines Scrn Negative (YKUJIJ=846) U Benzodiazepines Scrn Negative (RCCNUZ=725) U Cocaine Metab Screen Negative (NRALYH=694) U Marijuana (THC) Screen Negative (CUTOFF=50) Ethyl Alcohol (0.00) gm% SARS-CoV-2 RNA (DL) (NEGATIVE) 01/23/21 01/23/21 Range/Units 00:15 03:09 WBC (4.23-9.07) K/mm3 RBC (4.63-6.08) M/mm3 Hgb (13.7-17.5) gm/dl Hct (40.1-51.0) % MCV (79.0-92.2) fl MCH (25.7-32.2) pg MCHC (32.2-35.5) g/dl RDW Std Deviation (35.1-43.9) fL Plt Count (163-337) K/mm3 MPV (9.4-12.3) fl Neutrophils % (Manual) (40-60) % Band Neutrophils % (0-10) % Lymphocytes % (Manual) (20-40) % Atypical Lymphs % % Monocytes % (Manual) (2-10) % Eosinophils % (Manual) (0.8-7.0) % Basophils % (Manual) (0.2-1.2) Platelet Estimate Plt Morphology Comment Hypochromasia Tear Drop Cells RBC Morph Comment Sodium (136-145) mEq/L Potassium (3.5-5.1) mEq/L Chloride (98-107) mEq/L Carbon Dioxide (21-32) mEq/L Anion Gap (5-15) BUN (7-18) mg/dL Creatinine (0.7-1.3) mg/dL Est Cr Clr Drug Dosing mL/min Estimated GFR (MDRD) (>60) mL/min BUN/Creatinine Ratio (14-18) Glucose (70-99) mg/dL Lactic Acid 2.2 H* 1.7 (0.4-2.0) mmol/L Calcium (8.5-10.1) mg/dL Magnesium (1.8-2.4) mg/dL Total Bilirubin (0.2-1.0) mg/dL AST (15-37) U/L ALT (16-63) U/L Alkaline Phosphatase (46-116) U/L C-Reactive Protein (<1.0) mg/dL Total Protein (6.4-8.2) g/dl Albumin (3.4-5.0) g/dl Globulin gm/dL Albumin/Globulin Ratio (1-2) Lipase (73-393) U/L Urine Opiates Screen (VEXJVT=152) Ur Buprenorphine Scrn (CUTOFF=10) Ur Oxycodone Screen (PVI9SR=057) Urine Methadone Screen (MDH6NP=499) Ur Propoxyphene Screen (LQIJEN=828) Ur Barbiturates Screen (PSYWNP=831) Ur Tricyclics Screen (WSNUZH=947) Ur Phencyclidine Scrn (CUTOFF=25) Ur Amphetamine Screen (DLYWCF=621) U Methamphetamines Scrn (HEGUAY=309) U Benzodiazepines Scrn (OAAXGH=400) U Cocaine Metab Screen (SKXRQP=500) U Marijuana (THC) Screen (CUTOFF=50) Ethyl Alcohol (0.00) gm% SARS-CoV-2 RNA (DL) (NEGATIVE) Meds: Medications Discontinued Medications Generic Name Dose Route Start Last Admin Trade Name Freq PRN Reason Stop Dose Admin Al Hydroxide/Mg Hydroxide 30 0 ml 01/22/21 20:48 01/22/21 21:08 ml/ Lidocaine HCl 15 ml PO 01/22/21 20:49 45 ml ONETIME STA Administration Dicyclomine HCl 20 mg 01/22/21 20:49 01/22/21 21:08 Dicyclomine 20 Mg/2 Ml Sdv IM 01/22/21 20:50 20 mg ONETIME ONE Administration Famotidine 40 mg 01/22/21 20:48 01/22/21 21:05 Famotidine 20 Mg/2 Ml Sdv IVPUSH 01/22/21 20:49 40 mg ONETIME STA Administration Sodium Chloride 1,000 mls @ 999 mls/hr 01/22/21 20:49 01/22/21 21:01 Normal Saline IV 01/22/21 21:49 999 mls/hr ONETIME ONE Administration Magnesium Sulfate 4 gm/ Premix 50 mls @ 12.5 mls/hr 01/22/21 21:39 01/22/21 22:02 IV 01/23/21 01:38 12.5 mls/hr ONETIME ONE Administration Sodium Chloride 1,000 mls @ 999 mls/hr 01/22/21 22:07 01/22/21 22:37 Normal Saline IV 01/22/21 23:07 999 mls/hr ONETIME ONE Administration Ondansetron HCl 4 mg 01/22/21 20:49 01/22/21 21:02 Ondansetron 4 Mg/2 Ml Sdv IVPUSH 01/22/21 20:50 4 mg ONETIME ONE Administration Potassium Chloride 40 meq 01/23/21 07:13 01/23/21 07:32 Potassium Chloride 20 Meq Tab.Er PO 01/23/21 07:14 40 meq ONETIME ONE Administration Thiamine HCl 100 mg 01/22/21 20:49 01/22/21 21:06 Thiamine 200 Mg/2 Ml Mdv IVPUSH 01/22/21 20:50 100 mg ONETIME STA Administration - Re-Assessments/Exams Free Text/Narrative Re-Assessment/Exam: 01/22/21 20:50 In the past, the patient has had significant electrolyte abnormalities, including hypokalemia and hypomagnesemia. I ordered a work-up that includes numerous blood tests, a urine drug screen, and a swab for the SARS-CoV-2 virus. In the meantime, the patient will be treated with a GI cocktail, IV famotidine, IM Bentyl, IV thiamine, IV Zofran, and IV fluid. 01/22/21 21:39 The patient's CBC is remarkable for an H/H slightly depressed at 12.0/37.5, and thrombocytopenia of 47,000, with the remainder of his CBC being unremarkable. His CMP is remarkable for modest hypokalemia of 3.1, mild hyperglycemia of 116, and an alkaline phosphatase mildly elevated at 161, with remainder of his CMP being unremarkable. His magnesium level is a significantly depressed at 1.0. His lipase level is modestly elevated at 433. His EtOH level is significantly elevated at 0.41. Results of his lactic acid level, urine drug screen, and swab for the SARS-CoV-2 virus are still pending. Based on the above, I have ordered a 4 g Mg-rider. Once it has finished infusing, the patient will be given some KCl. 01/22/21 22:05 The patient's lactic acid level is elevated at 3.5. His swab for the SARS-CoV-2 virus is positive. He has not yet provided a urine sample for the urine drug screen. Based on the above, I have ordered a CRP, and a repeat lactic acid to be obtained at 00:10. He will continue to receive IV fluid. 01/22/21 22:33 The patient CRP is within normal limits at 0.3. As we are experiencing a shortage of monoclonal antibodies, we need to limit treatment to those at the highest risk of developing significant consequences of COVID-19. The CRP has shown to be a useful prognostic indicator, with a low CRP indicating low risk of developing significant consequences. Because the patient's CRP is low, I am not going to offer him treatment with monoclonal antibodies at this time. 01/23/21 04:00 The patient's repeat lactic acid level at 00:15 was down to 2.2, and at 03:15, down to 1.7. His urine drug screen is negative for all. 01/23/21 08:00 Test results discussed with the patient. He is sober. I explained why we are not offering him monoclonal antibodies, and he expressed understanding. I recommended that he strictly isolate as much as possible for 10 days, at which time he should get retested. He stated that he lives in his mother's basement, and will try to avoid contact with her as much as possible. He stated that his mother is vaccinated. I told him that if his mother begins to show signs of illness, she should come to the ED for evaluation. Departure - Departure Time of Disposition: 08:01 Disposition: Home, Self-Care 01 Condition: Good Clinical Impression: Alcohol dependence, daily use, Hyponatremia, Hypomagnesemia, Thrombocytopenia, COVID-19 Alcohol intoxication Qualifiers: Complication of substance-induced condition: uncomplicated Qualified Code(s): F10.920 - Alcohol use, unspecified with intoxication, uncomplicated - Discharge Information *PRESCRIPTION DRUG MONITORING PROGRAM REVIEWED*: Not Applicable *COPY OF PRESCRIPTION DRUG MONITORING REPORT IN PATIENT DUONG: Not Applicable Referrals: Brandy Colon PA-C [Physician Journalist] - Forms: ED Department Discharge Additional Instructions: You were seen in the emergency room for ongoing upper abdominal pain in the s etting of continued alcohol consumption. Work-up in the ER included numerous blood tests, a urine drug screen, and a swab for the SARS-CoV-2 virus. Your alcohol level was found to be significantly elevated at 0.41. For reference, that is over 5 times upper legal limit for driving. Your platelets were found to be low at 47,000. This is a consequence of chronic drinking. Your magnesium level was found to be significantly depressed at 1.0. You were given IV magnesium replacement in the ER. Your potassium was found to be mildly low at 3.1. You were given oral potassium replacement in the ER. Your swab for the SARS-CoV-2 virus was positive, indicating that you have COVID- 19. As discussed, because your CRP, a marker of inflammation that is a useful indicator of the likelihood of developing significant consequences from COVID-19 was low, treatment with monoclonal antibodies was not offered. As explained, there is a shortage of monoclonal antibodies, therefore they are only being o ffered to those at high risk for the development of significant consequences. We recommend that you maintain sobriety. Stay adequately hydrated. You may take [id number] ibuprofen as needed for discomfort. We recommend that you take [id number] famotidine (Pepcid), 1 tablet twice a day. As discussed, it is imperative that you strictly isolate until you test negative. On average, it takes 10 days to clear the virus, although not everybody is average. We recommend that you get retested on or about 02/02/2021. If you are still positive at that time, you need to continue to isolate until you test negative. As discussed, if your mother starts to develop symptoms of COVID-19, we recommend that she come to the ER for evaluation. If she tests positive, she may be a candidate for monoclonal antibodies. If any other problems, please do not hesitate to return to the ER. Sepsis Event Note (ED) - Evaluation Sepsis Screening Result: No Definite Risk - Focused Exam Vital Signs: Vital Signs Temp Pulse Resp BP Pulse Ox 01/22/21 20:04 36.3 C 79 15 157/107 H 96
[2021-01-22] MEDS ORDERED: Magnesium Sulfate/Water 4 GM in Premix Bag 1 BAG IV ONE (21:39)
[2021-01-23] MEDS ORDERED: Potassium Chloride 20 MEQ Tab.ER PO ONE (07:13)
== END 2021-01-23 08:20 | disposition home or self-care (01) ==
LOC: JD.ED 19:52
DX: U07.1 COVID-19 (principal); E87.1 Hypo-osmolality and hyponatremia; E83.42 Hypomagnesemia; D69.6 Thrombocytopenia, unspecified; F10.220 Alcohol dependence with intoxication, uncomplicated; E87.6 Hypokalemia; I10 Essential (primary) hypertension; F17.210 Nicotine dependence, cigarettes, uncomplicated
CPT/HCPCS: 36415; 80053; 80306; 80307; 83605; 83690; 83735; 85007; 85027; 86140; 96365; 96366; 96372; 96375; 99284-25; A9270-GY; J0500; J2405; J3411; J3475; J3490; J7030; U0002

== ENCOUNTER 2021-01-28 23:15 | Emergency (ER) | payer MEDICAID ==
[2021-01-28 23:49] VITALS: BP 136/101; PULSE 81
[2021-01-29] MEDS ORDERED: Ketorolac 15 MG/ML SDV IVPUSH ONE (00:42)
[2021-01-29] MEDS ORDERED: Lactated Ringers 1,000 ML IV ONE (00:42)
[2021-01-29] MEDS ORDERED: Pantoprazole 40 MG Vial IVPUSH ONE (01:27)
[2021-01-29] MEDS ORDERED: Alum Hydrox/Mag Hydrox/Simeth 30 ML, Lidocaine 2% 15 ML PO ONE ×2 (01:27)
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
== END 2021-01-29 04:05 | disposition home or self-care (01) ==
LOC: JD.ED 23:15
DX: R10.13 Epigastric pain (principal); D69.6 Thrombocytopenia, unspecified; F10.10 Alcohol abuse, uncomplicated; I10 Essential (primary) hypertension; F17.210 Nicotine dependence, cigarettes, uncomplicated
CPT/HCPCS: 36415; 80053; 83690; 85025; 96374; 99284-25; A9270-GY; C9113; J7120

== ENCOUNTER 2021-01-30 04:47 | Emergency (ER) | payer MEDICAID ==
[2021-01-30 05:10] VITALS: BP 147/101
[2021-01-30] MEDS ORDERED: LORazepam 2 MG/ML SDV IVPUSH ONE (05:28)
[2021-01-30] MEDS ORDERED: Alum Hydrox/Mag Hydrox/Simeth 30 ML, Lidocaine 2% 15 ML PO ONE ×2 (05:28)
[2021-01-30] MEDS ORDERED: Ondansetron 4 MG/2 ML SDV IVPUSH ONE (05:28)
[2021-01-30] MEDS ORDERED: Famotidine 20 MG/2 ML SDV IVPUSH ONE (05:28)
[2021-01-30] MEDS ORDERED: Lactated Ringers 1,000 ML IV ONE (05:29)
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
[2021-01-30] MEDS ORDERED: Magnesium Sulfate/Water 4 GM in Premix Bag 1 BAG IV ONE (06:40)
[2021-01-30] MEDS ORDERED: Morphine 2 MG/ML SYRINGE IVPUSH ONE (07:23)
[2021-01-30 09:19] VITALS: PULSE 81
== END 2021-01-30 11:15 | disposition home or self-care (01) ==
LOC: JD.ED 04:47
DX: K29.20 Alcoholic gastritis without bleeding (principal); E83.42 Hypomagnesemia; I10 Essential (primary) hypertension; Z72.0 Tobacco use; Z86.16 Personal history of COVID-19
CPT/HCPCS: 36415; 80053; 80307; 83690; 83735; 85025; 96365; 96366; 96375; 99284; A9270; J2060; J2270; J2405; J3475; J3490; J7120

== ENCOUNTER 2021-02-25 01:38 | Emergency (ER) | payer MEDICAID ==
[2021-02-25] MEDS ORDERED: Lactated Ringers 1,000 ML IV ONE (03:09)
[2021-02-25] MEDS ORDERED: Thiamine 100 MG in Sodium Chloride 0.9% 100 ML IV ONE (03:09)
[2021-02-25] MEDS ORDERED: Folic Acid 50 MG/10 ML MDV IV ONE ×2 (03:09→08:00)
[2021-02-25] MEDS ORDERED: Alum Hydrox/Mag Hydrox/Simeth 30 ML, Lidocaine 2% 15 ML PO ONE ×2 (03:12)
[2021-02-25] MEDS ORDERED: Lactated Ringers 1,000 ML IV SCH (03:15)
[2021-02-25] MEDS ORDERED: Ondansetron 4 MG/2 ML SDV IVPUSH ONE (03:55)
[2021-02-25] MEDS ORDERED: HYDROmorphone 0.5 MG/0.5 ML Syringe IVPUSH ONE ×2 (03:55→07:01)
[2021-02-25] MEDS ORDERED: Potassium Chloride 20 MEQ Tab.ER PO ONE ×2 (06:48→08:15)
[2021-02-25] MEDS ORDERED: Magnesium Sulfate/Water 2 GM in Premix Bag 1 BAG IV ONE (06:48)
[2021-02-25] MEDS ORDERED: Sucralfate Suspension 1 GM/10 ML Cup PO ONE (06:49)
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
[2021-02-25 09:26] VITALS: BP 139/100; PULSE 100
== END 2021-02-25 10:00 | disposition home or self-care (01) ==
LOC: JD.ED 01:38
DX: K29.20 Alcoholic gastritis without bleeding (principal); F10.10 Alcohol abuse, uncomplicated; E87.6 Hypokalemia; E83.42 Hypomagnesemia; I10 Essential (primary) hypertension; Z72.0 Tobacco use
CPT/HCPCS: 36415; 80053; 82977; 83690; 83735; 85025; 85610; 96365; 96366; 96367; 96375; 96376; 99284; A9270; J1170; J2405; J3411; J3475; J7120

== ENCOUNTER 2021-03-04 01:21 | Emergency (ER) | payer MEDICAID ==
[2021-03-04] MEDS ORDERED: Pantoprazole 40 MG Vial IVPUSH ONE (01:45)
[2021-03-04] MEDS ORDERED: MVI, Adult with Vitamin K 10 ML in Dextrose 5%-Lactated Ringers 1,000 ML IV SCH ×2 (01:45)
[2021-03-04] MEDS ORDERED: Ondansetron 4 MG/2 ML SDV IVPUSH ONE (01:45)
[2021-03-04] MEDS ORDERED: Alum Hydrox/Mag Hydrox/Simeth 30 ML, Lidocaine 2% 15 ML PO ONE ×2 (01:45)
[2021-03-04] MEDS ORDERED: LORazepam 2 MG/ML SDV IVPUSH ONE (01:45)
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
[2021-03-04] MEDS ORDERED: Magnesium Sulfate/Water 4 GM in Premix Bag 1 BAG IV ONE (02:36)
[2021-03-04] MEDS ORDERED: Potassium Chloride 20 MEQ Tab.ER PO ONE (02:37)
[2021-03-04] MEDS: Potassium Chloride 10 MEQ in Premix Bag 1 BAG IV SCH ×3 (02:47→05:17)
[2021-03-04] MEDS ORDERED: Acetaminophen 325 MG Tab PO ONE (03:00)
[2021-03-04] MEDS ORDERED: Folic Acid 50 MG/10 ML MDV IV STA (03:04)
[2021-03-04 05:26] VITALS: BP 130/98; PULSE 102
[2021-03-04] MEDS ORDERED: Morphine 4 MG/ML Syringe IVPUSH ONE (05:42)
== END 2021-03-04 06:30 | disposition home or self-care (01) ==
LOC: JD.ED 01:21
DX: K29.20 Alcoholic gastritis without bleeding (principal); F10.20 Alcohol dependence, uncomplicated; E87.6 Hypokalemia; E83.42 Hypomagnesemia; I10 Essential (primary) hypertension; Z72.0 Tobacco use; Y90.0 Blood alcohol level of less than 20 mg/100 ml
CPT/HCPCS: 36415; 80053; 80307; 82607; 82746; 82947; 83690; 83735; 85025; 85610; 93005; 96365; 96366; 96367; 96368; 96375; 99284; A9270; C9113; J2060; J2270; J2405; J3475; J3480; J7121

== ENCOUNTER 2021-04-07 12:04 | Emergency (ER) | payer MEDICAID ==
[2021-04-07] MEDS ORDERED: Sodium Chloride 0.9% 10 ML Syringe FLUSH PRN (13:04)
[2021-04-07] MEDS ORDERED: Dextrose 5%-Lactated Ringers 1,000 ML IV SCH (13:15)
[2021-04-07] MEDS ORDERED: Metoclopramide 10 MG/2 ML SDV IVPUSH ONE (13:15)
[2021-04-07] MEDS ORDERED: HYDROmorphone 0.5 MG/0.5 ML Syringe IVPUSH ONE ×2 (13:15→17:26)
[2021-04-07 14:16] LABS: ACETAMINOPHEN 0 ug/mL (10-30)
[2021-04-07] MEDS ORDERED: Magnesium Sulfate/Water 4 GM in Premix Bag 1 BAG IV ONE (14:19)
[2021-04-07] MEDS ORDERED: Potassium Chloride 20 MEQ Tab.ER PO ONE (14:19)
[2021-04-07] MEDS ORDERED: Sodium Chloride 0.9% 1,000 ML IV ONE ×2 (14:20→18:32)
[2021-04-07] MEDS ORDERED: LORazepam 2 MG/ML SDV IVPUSH ONE (18:00)
[2021-04-07 20:54] VITALS: BP 149/102; PULSE 102
== END 2021-04-07 20:58 | disposition home or self-care (01) ==
LOC: JD.ED 12:04
DX: F10.230 Alcohol dependence with withdrawal, uncomplicated (principal); E83.42 Hypomagnesemia; E87.6 Hypokalemia; Y90.0 Blood alcohol level of less than 20 mg/100 ml; I10 Essential (primary) hypertension; Z86.16 Personal history of COVID-19; Z72.0 Tobacco use
CPT/HCPCS: 36415; 80053; 80143; 80179; 80306; 80307; 81003; 83605; 83735; 84443; 85025; 93005; 96365; 96366; 96375; 96376; 99285; A9270; J1170; J2060; J2765; J3475; J7030; J7121; 93010

== ENCOUNTER 2021-04-22 17:49 | Emergency (ER) | payer MEDICAID ==
[2021-04-22 18:02] VITALS: BP 142/101; PULSE 128
[2021-04-22] MEDS ORDERED: Sucralfate Suspension 1 GM/10 ML Cup PO ONE (18:40)
== END 2021-04-22 20:45 | disposition home or self-care (01) ==
LOC: JD.ED 17:49
DX: M54.30 Sciatica, unspecified side (principal); I10 Essential (primary) hypertension; Z72.0 Tobacco use
CPT/HCPCS: 36415; 80053; 83690; 85025; 99283; A9270-GY

== ENCOUNTER 2021-05-26 22:16 | Emergency (ER) | payer MEDICAID ==
[2021-05-26 22:30] VITALS: BP 134/100; PULSE 62
[2021-05-26] MEDS ORDERED: Alum Hydrox/Mag Hydrox/Simeth 30 ML, Lidocaine 2% 15 ML PO ONE ×2 (23:05)
[2021-05-26] MEDS ORDERED: Lactated Ringers 500 ML IV ONE (23:05)
[2021-05-26] MEDS ORDERED: Pantoprazole 40 MG Vial IVPUSH ONE (23:05)
[2021-05-26] MEDS ORDERED: LORazepam 2 MG/ML SDV IVPUSH ONE (23:10)
[2021-05-26] MEDS ORDERED: MVI, Adult with Vitamin K 10 ML in Dextrose 5%-Lactated Ringers 1,000 ML IV SCH ×2 (23:15)
[2021-05-26] MEDS ORDERED: Multivitamins with Minerals/Folic Acid/Lutein/Zeaxanth Tab PO ONE (23:48)
[2021-05-26] MEDS ORDERED: Folic Acid 50 MG/10 ML MDV IV ONE (23:48)
[2021-05-27] MEDS ORDERED: Sucralfate Suspension 1 GM/10 ML Cup PO ONE (05:27)
[2021-05-27] MEDS ORDERED: Morphine 2 MG/ML SYRINGE IVPUSH ONE (05:32)
[2021-05-27] MEDS ORDERED: Iopamidol 612 MG/ML 100 ML Bottle IVPUSH ONE (05:57)
[2021-05-27] MEDS ORDERED: Folic Acid 50 MG/10 ML MDV IV ONE (23:07)
[2021-05-27] MEDS ORDERED: Multivitamins with Minerals/Folic Acid/Lutein/Zeaxanth Tab PO ONE (23:08)
== END 2021-05-27 07:26 | disposition home or self-care (01) ==
LOC: JD.ED 22:16
DX: K85.90 Acute pancreatitis without necrosis or infection, unspecified (principal); K21.9 Gastro-esophageal reflux disease without esophagitis; Z79.899 Other long term (current) drug therapy; Z72.0 Tobacco use
CPT/HCPCS: 36415; 74177; 80053; 80307; 83690; 83735; 85025; 85610; 96365; 96366; 96375; 99285; A9270; C9113; J2060; J2270; J7120; J7121; Q9967

== ENCOUNTER 2021-05-27 18:27 | Emergency (ER) | payer MEDICAID ==
[2021-05-27 18:38] VITALS: BP 162/107; PULSE 110
[2021-05-27] MEDS ORDERED: Sodium Chloride 0.9% 1,000 ML IV STA (19:01)
[2021-05-27] MEDS ORDERED: Ondansetron 4 MG/2 ML SDV IVPUSH ONE (19:01)
[2021-05-27] MEDS ORDERED: Sodium Chloride 0.9% 10 ML Syringe FLUSH PRN (19:01)
[2021-05-27] MEDS ORDERED: LORazepam 2 MG/ML SDV IVPUSH ONE (19:03)
[2021-05-27] MEDS ORDERED: HYDROmorphone 1 MG/ML Syringe IVPUSH ONE ×2 (19:03→23:04)
[2021-05-27] MEDS ORDERED: Magnesium Sulfate/Water 2 GM in Premix Bag 1 BAG IV ONE (21:42)
== END 2021-05-27 23:50 | disposition home or self-care (01) ==
LOC: JD.ED 18:27
DX: K86.0 Alcohol-induced chronic pancreatitis (principal); D69.6 Thrombocytopenia, unspecified; F10.229 Alcohol dependence with intoxication, unspecified; E83.42 Hypomagnesemia; I10 Essential (primary) hypertension; K21.9 Gastro-esophageal reflux disease without esophagitis; Z79.899 Other long term (current) drug therapy; Z72.0 Tobacco use; Y90.5 Blood alcohol level of 100-119 mg/100 ml
CPT/HCPCS: 36415; 80053; 80307; 83690; 83735; 85025; 96365; 96366; 96375; 96376; 99284; J1170; J2060; J2405; J3475; J7030; 99285

== ENCOUNTER 2021-06-11 14:48 | Emergency (ER) | payer MEDICAID ==
[2021-06-11] MEDS ORDERED: Ondansetron 4 MG/2 ML SDV IVPUSH ONE (15:20)
[2021-06-11] MEDS ORDERED: Sodium Chloride 0.9% 1,000 ML IV STA (15:20)
[2021-06-11] MEDS ORDERED: Sodium Chloride 0.9% 10 ML Syringe FLUSH PRN (15:20)
[2021-06-11] MEDS ORDERED: HYDROmorphone 1 MG/ML Syringe IVPUSH ONE (15:21)
[2021-06-11 17:44] VITALS: BP 132/80; PULSE 88
== END 2021-06-11 17:44 | disposition home or self-care (01) ==
LOC: JD.ED 14:48
DX: F10.929 Alcohol use, unspecified with intoxication, unspecified (principal); I10 Essential (primary) hypertension; K21.9 Gastro-esophageal reflux disease without esophagitis; Z86.16 Personal history of COVID-19; Z79.899 Other long term (current) drug therapy; Z72.0 Tobacco use
CPT/HCPCS: 36415; 80053; 80307; 83690; 85025; 96374; 96375; 99284; J1170; J2405; J3490; J7030; 99283

== ENCOUNTER 2021-06-12 11:08 | Emergency (ER) | payer MEDICAID ==
[2021-06-12] MEDS ORDERED: Sodium Chloride 0.9% 10 ML Syringe FLUSH PRN (11:34)
[2021-06-12] MEDS ORDERED: Sodium Chloride 0.9% 1,000 ML IV STA (11:34)
[2021-06-12] MEDS ORDERED: Ondansetron 4 MG/2 ML SDV IVPUSH ONE (11:34)
[2021-06-12] MEDS ORDERED: HYDROmorphone 1 MG/ML Syringe IVPUSH ONE ×2 (11:36→13:40)
[2021-06-12] MEDS ORDERED: Naloxone 2 MG/2 ML Syringe IM ONE (15:21)
[2021-06-12] MEDS ORDERED: Ondansetron 4 MG Tab.DIS PO ONE (16:18)
[2021-06-12 17:38] VITALS: BP 132/88; PULSE 98
== END 2021-06-12 17:38 | disposition home or self-care (01) ==
LOC: JD.ED 11:08
DX: R10.84 Generalized abdominal pain (principal); F10.129 Alcohol abuse with intoxication, unspecified; I10 Essential (primary) hypertension; Y90.5 Blood alcohol level of 100-119 mg/100 ml
CPT/HCPCS: 36415; 70450; 70450-26; 80053; 80307; 83690; 85025; 96372; 96374; 96375; 96376; 99282; 99284-25; A9270-GY; J1170; J2310; J2405; J3490; J7030

== ENCOUNTER 2021-06-13 03:02 | Emergency (ER) | payer MEDICAID ==
[2021-06-13] MEDS ORDERED: Ondansetron 4 MG/2 ML SDV IVPUSH ONE (04:04)
[2021-06-13] MEDS ORDERED: Sodium Chloride 0.9% 1,000 ML IV ONE (04:04)
[2021-06-13] MEDS ORDERED: Famotidine 20 MG/2 ML SDV IVPUSH STA (04:04)
[2021-06-13] MEDS ORDERED: Sucralfate Suspension 1 GM/10 ML Cup PO ONE (04:05)
[2021-06-13] MEDS ORDERED: Alum Hydrox/Mag Hydrox/Simeth 30 ML, Lidocaine 2% 15 ML PO STA ×2 (04:05)
[2021-06-13] MEDS ORDERED: Magnesium Sulfate/Water 4 GM in Premix Bag 1 BAG IV ONE (05:11)
[2021-06-13] MEDS ORDERED: Sodium Chloride 0.9% 1,000 ML IV SCH (05:30)
[2021-06-13] MEDS ORDERED: Potassium Chloride 20 MEQ Tab.ER PO ONE (09:02)
[2021-06-13] MEDS ORDERED: Haloperidol Lactate 5 MG/ML SDV IVPUSH ONE (09:40)
[2021-06-13] MEDS ORDERED: Prochlorperazine 10 MG/2 ML SDV IVPUSH ONE (09:41)
[2021-06-13 10:45] VITALS: BP 123/87; PULSE 92
== END 2021-06-13 10:40 | disposition home or self-care (01) ==
LOC: JD.ED 03:02
DX: R10.84 Generalized abdominal pain (principal); F10.20 Alcohol dependence, uncomplicated; E83.42 Hypomagnesemia; I10 Essential (primary) hypertension; K21.9 Gastro-esophageal reflux disease without esophagitis; Z72.0 Tobacco use
CPT/HCPCS: 36415; 80053; 83690; 83735; 85025; 96365; 96366; 96375; 99284-25; 99285; A9270-GY; J0780; J2405; J3475; J3490; J7030

== ENCOUNTER 2021-07-30 | Emergency (ER) | payer MEDICAID ==
[2021-07-30 00:15] VITALS: BP 134/110; PULSE 77
[2021-07-30] MEDS ORDERED: Ondansetron 4 MG/2 ML SDV IVPUSH ONE (00:41)
[2021-07-30] MEDS ORDERED: Alum Hydrox/Mag Hydrox/Simeth 30 ML, Lidocaine 2% 15 ML PO ONE ×2 (00:41)
[2021-07-30] MEDS ORDERED: Famotidine 20 MG/2 ML SDV IVPUSH ONE (00:41)
[2021-07-30] MEDS ORDERED: Magnesium Sulfate/Water 4 GM in Premix Bag 1 BAG IV ONE (01:11)
[2021-07-30] MEDS ORDERED: Potassium Chloride 20 MEQ Tab.ER PO ONE (01:11)
[2021-07-30] MEDS: Potassium Chloride 10 MEQ in Premix Bag 1 BAG IV SCH ×3 (01:25→03:37)
[2021-07-30] MEDS ORDERED: Sodium Chloride 0.9% 1,000 ML IV SCH ×2 (01:30)
[2021-07-30] MEDS ORDERED: diphenhydrAMINE 50 MG/ML SDV IVPUSH ONE (03:39)
[2021-07-30] MEDS ORDERED: Prochlorperazine 10 MG in Sodium Chloride 0.9% 50 ML IV ONE (03:39)
[2021-07-30] MEDS ORDERED: Sucralfate Suspension 1 GM/10 ML Cup PO ONE (03:43)
== END 2021-07-30 05:19 | disposition home or self-care (01) ==
LOC: JD.ED
DX: K29.20 Alcoholic gastritis without bleeding (principal); E87.6 Hypokalemia; E83.42 Hypomagnesemia; F10.10 Alcohol abuse, uncomplicated; I10 Essential (primary) hypertension; Z86.16 Personal history of COVID-19
CPT/HCPCS: 36415; 80053; 80307; 82009; 83690; 83735; 85025; 96365; 96366; 96368; 96375; 99284; A9270; J0780; J1200; J2405; J3475; J3480; J3490; J7030; 99283

== ENCOUNTER 2021-08-06 06:16 | Emergency (ER) | payer MEDICAID ==
[2021-08-06] MEDS ORDERED: LORazepam 2 MG/ML SDV IVPUSH ONE ×3 (07:06→16:00)
[2021-08-06] MEDS ORDERED: Ondansetron 4 MG/2 ML SDV IVPUSH ONE (07:06)
[2021-08-06] MEDS ORDERED: Sodium Chloride 0.9% 10 ML Syringe FLUSH PRN (07:06)
[2021-08-06] MEDS ORDERED: Famotidine 20 MG/2 ML SDV IVPUSH ONE (07:06)
[2021-08-06] MEDS ORDERED: Sodium Chloride 0.9% 1,000 ML IV SCH ×2 (07:15→09:00)
[2021-08-06 08:13] LABS: ESTIMATED GFR > 60 mL/min (>60)
[2021-08-06] MEDS ORDERED: Magnesium Sulfate/Water 2 GM in Premix Bag 1 BAG IV ONE (08:58)
[2021-08-06 16:18] VITALS: BP 109/86; PULSE 54
== END 2021-08-06 16:30 | disposition other institution (70) ==
LOC: JD.ED 06:16
DX: F10.920 Alcohol use, unspecified with intoxication, uncomplicated (principal); I10 Essential (primary) hypertension; Z86.16 Personal history of COVID-19
CPT/HCPCS: 36415; 80053; 80306; 80307; 83735; 85025; 96361; 96365; 96366; 96375; 96376; 99284; J2060; J2405; J3475; J3490; J7030

== ENCOUNTER 2021-09-12 17:01 | Emergency (ER) | payer MEDICAID ==
[2021-09-12 18:46] VITALS: PULSE 117
[2021-09-12 18:51] VITALS: BP 129/107
[2021-09-12] MEDS ORDERED: Lactated Ringers 1,000 ML IV ONE (19:22)
[2021-09-12] MEDS ORDERED: Magnesium Sulfate/Water 2 GM in Premix Bag 1 BAG IV ONE (20:47)
[2021-09-12] MEDS ORDERED: Famotidine 20 MG/2 ML SDV IVPUSH ONE (21:03)
[2021-09-12] MEDS ORDERED: Sucralfate Suspension 1 GM/10 ML Cup PO STA (22:17)
== END 2021-09-12 23:05 | disposition home or self-care (01) ==
LOC: JD.ED 17:01
DX: F10.10 Alcohol abuse, uncomplicated (principal); K29.20 Alcoholic gastritis without bleeding; E83.42 Hypomagnesemia; I10 Essential (primary) hypertension; F17.210 Nicotine dependence, cigarettes, uncomplicated; Z86.16 Personal history of COVID-19
CPT/HCPCS: 36415; 80053; 80307; 83735; 85025; 96365; 96366; 96375; 99284; A9270; J3475; J3490; J7120; 99283

== ENCOUNTER 2021-09-14 22:41 | Emergency (ER) | payer MEDICAID ==
[2021-09-14 23:06] VITALS: BP 110/70; PULSE 102
[2021-09-14] MEDS: Sodium Chloride 0.9% 1,000 ML IV SCH (23:22)
[2021-09-15] MEDS ORDERED: Magnesium Sulfate/Water 4 GM in Premix Bag 1 BAG IV STA ×2
[2021-09-15] MEDS ORDERED: Potassium Chloride 20 MEQ Tab.ER PO ONE ×3 (05:40→10:52)
[2021-09-15] MEDS ORDERED: Famotidine 20 MG/2 ML SDV IVPUSH STA (06:18)
[2021-09-15] MEDS ORDERED: Aluminum Hydroxide/Magnesium Hydroxide/Simethicone Susp 30 ML Cup PO ONE (06:19)
[2021-09-15] MEDS: Sodium Chloride 0.9% 1,000 ML IV SCH (07:18)
== END 2021-09-15 11:45 | disposition home or self-care (01) ==
LOC: JD.ED 22:41
DX: F10.10 Alcohol abuse, uncomplicated (principal); Z28.310 Unvaccinated for COVID-19; Z86.16 Personal history of COVID-19; Y90.1 Blood alcohol level of 20-39 mg/100 ml
CPT/HCPCS: 36415; 80053; 80143; 80179; 80306; 80307; 83735; 84132; 85025; 96361; 96365; 96366; 96375; 99284; A9270; J3475; J3490; J7030

== ENCOUNTER 2021-11-17 22:42 | Emergency (ER) | payer MEDICAID ==
[2021-11-17 22:58] VITALS: BP 127/89; PULSE 98
[2021-11-17] MEDS ORDERED: Ketorolac 60 MG/2 ML SDV IM ONE (23:34)
== END 2021-11-17 23:50 | disposition home or self-care (01) ==
LOC: JD.ED 22:42
DX: M54.50 Low back pain, unspecified (principal); I10 Essential (primary) hypertension; F17.210 Nicotine dependence, cigarettes, uncomplicated
CPT/HCPCS: 96372; 99283; J1885; 99282

== ENCOUNTER 2021-12-28 21:29 | Emergency (ER) | payer MEDICAID ==
[2021-12-28 22:22] VITALS: BP 129/100; PULSE 95
== END 2021-12-28 23:48 ==
LOC: JD.ED 21:29
DX: Z53.21 Procedure and treatment not carried out due to patient leaving prior to being seen by health care provider (principal)

== ENCOUNTER 2022-02-22 16:35 | Emergency (ER) | payer MEDICAID ==
[2022-02-22] MEDS ORDERED: Sodium Chloride 0.9% 10 ML Syringe FLUSH PRN (17:16)
[2022-02-22] MEDS ORDERED: Sodium Chloride 0.9% 1,000 ML IV SCH (17:30)
[2022-02-22] MEDS ORDERED: Magnesium Sulfate/Water 4 GM in Premix Bag 1 BAG IV STA (19:26)
[2022-02-23 07:28] VITALS: BP 108/74; PULSE 82
== END 2022-02-23 07:25 | disposition home or self-care (01) ==
LOC: JD.ED 16:35
DX: E83.42 Hypomagnesemia (principal); R10.84 Generalized abdominal pain; F10.129 Alcohol abuse with intoxication, unspecified; F15.10 Other stimulant abuse, uncomplicated; I10 Essential (primary) hypertension; F17.210 Nicotine dependence, cigarettes, uncomplicated; Z86.16 Personal history of COVID-19
CPT/HCPCS: 36415; 80053; 80306; 80307; 83690; 83735; 85025; 85610; 96365; 96366; 99284; J3475; J3490; J7030

== ENCOUNTER 2022-03-01 20:14 | Emergency (ER) | payer MEDICAID ==
[2022-03-01 20:44] VITALS: BP 89/62; PULSE 120
[2022-03-01] MEDS ORDERED: Sodium Chloride 0.9% 10 ML Syringe FLUSH PRN (20:47)
[2022-03-01] MEDS ORDERED: Lactated Ringers 2,000 ML IV ONE (20:49)
[2022-03-01 21:07] LABS: ESTIMATED GFR 21 mL/min (>60)
[2022-03-01] MEDS ORDERED: Sodium Chloride 0.9% 1,000 ML IV ONE ×3 (21:16→23:55)
[2022-03-01] MEDS ORDERED: Ondansetron 4 MG/2 ML SDV IVPUSH ONE ×2 (21:30→23:55)
[2022-03-01] MEDS ORDERED: HYDROmorphone 0.5 MG/0.5 ML Syringe IVPUSH ONE (21:30)
[2022-03-01] MEDS ORDERED: Sodium Chloride 0.9% 1,000 ML IV SCH (21:30)
[2022-03-01 21:34] LABS: CORONAVIRUS COVID-19 NAA NEGATIVE (NEGATIVE)
[2022-03-01] MEDS ORDERED: fentaNYL 100 MCG/2 ML SDV IVPUSH ONE (22:28)
[2022-03-01] MEDS ORDERED: Dextrose 5%-0.9% NaCl 1,000 ML IV SCH (23:00)
[2022-03-01] MEDS ORDERED: Succinylcholine 200 MG/10 ML MDV ONE (23:00)
[2022-03-01] MEDS ORDERED: Etomidate 2 MG/ML 20 ML SDV IVPUSH ONE (23:00)
[2022-03-01 23:26] LABS: ESTIMATED GFR 22 mL/min (>60)
[2022-03-02] MEDS ORDERED: Norepinephrine 4 MG in Dextrose 5% in Water 246 ML IV SCH ×2 (00:32)
[2022-03-02] MEDS ORDERED: LORazepam 2 MG/ML SDV ONE ×2 (00:33→01:13)
[2022-03-02] MEDS ORDERED: LORazepam 2 MG/ML SDV IVPUSH ONE ×3 (00:35→01:45)
[2022-03-02] MEDS ORDERED: Norepinephrine 4 MG/4 ML SDV ONE (00:36)
[2022-03-02] MEDS ORDERED: Sodium Chloride 0.9% 0 ML ONE (00:37)
[2022-03-02] MEDS ORDERED: Dextrose 5% in Water 250 ML ONE (00:41)
[2022-03-02] MEDS ORDERED: propofoL 100 ML IV SCH (01:45)
[2022-03-02] MEDS ORDERED: Piperacillin/Tazobactam 4.5 GM in Sodium Chloride 0.9% 100 ML IV ONE (02:08)
[2022-03-02] MEDS ORDERED: Midazolam 1 MG/ML 5 ML SDV IVPUSH ONE (02:58)
[2022-03-02] MEDS ORDERED: Sodium Chloride 0.9% 100 ML ONE (03:04)
[2022-03-02] MEDS ORDERED: Midazolam 5 MG/ML 10 ML MDV ONE (03:04)
[2022-03-02] MEDS ORDERED: Sodium Bicarbonate 150 MEQ in Dextrose 5% in Water 1,000 ML IV ONE ×2 (03:12)
[2022-03-02] MEDS ORDERED: Sodium Chloride 0.9% 1,000 ML IV ONE (03:15)
[2022-03-02 03:52] LABS: ESTIMATED GFR 23 mL/min (>60)
== END 2022-03-02 03:50 ==
LOC: JD.ED 20:14
DX: J18.9 Pneumonia, unspecified organism (principal); E87.20 Acidosis, unspecified; N17.9 Acute kidney failure, unspecified; F10.232 Alcohol dependence with withdrawal with perceptual disturbance; I10 Essential (primary) hypertension; Z20.822 Contact with and (suspected) exposure to COVID-19
CPT/HCPCS: 0240U; 31500; 36415; 36556; 36600; 51702; 70450; 71045; 71250; 74176; 80048; 80053; 80306; 80307; 82550; 82803; 82947; 83605; 83690; 85007; 85027; 85610; 86140; 86738; 87040; 96361; 96365; 96366; 96375; 96376; 99285; C1751; J0330; J2060; J2250; J2405; J2543; J2704; J3010; J3490; J7030; J7042; J7060

== ENCOUNTER 2023-11-08 21:01 | Emergency (ER) | payer MEDICAID ==
[2023-11-08 21:45] VITALS: BP 129/96; PULSE 89
== END 2023-11-08 23:30 | disposition left against medical advice (07) ==
LOC: JD.ED 21:01
DX: Z53.21 Procedure and treatment not carried out due to patient leaving prior to being seen by health care provider (principal)